=== PATIENT | male | born 1945 | race Caucasian/White ===

== ENCOUNTER → 2017-07-25 14:55 | Outpatient (CLI) | payer MEDICARE, SELFPAY ==
[2017-07-25 16:20] LABS: Absolute Lymphocyte Count 1.11 X10^3/ul (0.83-4.51); Absolute Neutrophil Count 4.1 X10^3/uL (2.0-7.7); Basophil# 0.02 X10^3/uL; Basophil% 0.3 % (0-1); Eosinophil# 0.08 X10^3/uL; Eosinophils% 1.3 % (0-5); Hematocrit 40.5 % (40-54); Lymphocyte # 1.11 X10^3/ul (4.0); Lymphocyte % 18.1 % (19-41); Mean Corp Hgb Conc 34.6 g/gl (32-36); Mean Corpuscular Hgb 32.4 pg (27.0-32.0); Mean Corpuscular Volume 93.8 fL (80-94); Mean Platelet Vol. 9.3 fl (6.2-12.0); Monocyte% 13.1 % (0-10); POSITIVE COUNT NO; POSITIVE DIFFERENTIAL NO; POSITIVE MORPHOLOGY NO; Platelet Count 238 K/mm3 (150-450); RBC Distribution Width CV 12.8 % (11.6-14.6); RBC Distribution Width SD 42.6 fl (35.1-43.9); Red Blood Count 4.32 M/mm3 (4.6-6.2); White Blood Count 6.1 K/mm3 (4.4-11.0)
[2017-07-25 16:53] LABS: ALB/GLOB Ratio 1.2 RATIO (0.9-2.4); AST(SGOT) 27 U/L (15-37); Alanine Aminotransfer ALT/SGPT 14 U/L (16-61); Albumin, Serum 3.7 g/dL (3.2-5.0); Alkaline Phosphatase 119 U/L (45-117); Anion Gap 9 (5-15); BUN 13 mg/dL (7-18); Calcium,Total 8.8 mg/dL (8.5-10.1); Chloride 102 mmol/L (98-107); Creatinine, Serum 0.81 mg/dL (0.70-1.30); EST Glomerular Filtration Rate 99 mL/min (>60); Est Glom Filt Rate - Afr Amer 120 mL/min (>60); Glucose 86 mg/dL (74-106); Protein, Total 6.7 g/dL (6.4-8.2); Sodium Level 138 mmol/L (136-145); Thyroid Stim Hormone (TSH) 0.88 uIU/mL (0.358-3.74)
[2017-07-26 09:44] LABS: Vitamin B12 478 pg/mL (211-911)
== END ==
PROVIDERS: Family Provider Family Medicine; PCP Family Medicine; Visit Provider Family Medicine
DX: R41.3 Other amnesia (principal)
CPT/HCPCS: 36415; 80053; 80162; 82607; 82746; 84443; 85025

== ENCOUNTER 2017-10-02 10:30 | Outpatient (RCR) | payer MEDICARE, SELFPAY ==
--- NOTE | 2017-08-27 13:04 | HP.PTEVAL_ITS ---
Patient's Visit Information BRUCE LUND is a 71 year old M referred to Physical Therapy by LLOYD BeanC with a diagnosis of BILATERAL LEG WEAKNESS ,PARKINSON DISEASE,. Date of Evaluation: 08/27/17 Physical Therapist: Ted Yuan PT, - Visit Plan Frequency: 1x/Week Duration: 4 Weeks Plan: FLEXABLITY,PRE'S QUADS/HAMS/HIP,GAIT,ENDURANCE ,NUSTEP - Subjective Subjective: This 71 y/o male presenst to physical therapy with Bilateral leg weakness,parkinson disease,shuffling gait. Patient has had Parkinson for 8 years. Patient has noticed weakness in legs and stamina for ADL'S . No recent falls. Pain has difficulty with housework tasks due to weakness ,walking more than 1/4 . Patient has ocassionally parathesia legs. Patient fatigues with ADL' S due to poor stamina.Patient takes MEDS for parkinsons. VOCATION: retired. SOCIAL: - Objective POSTURE: mild foward posture,thoracic kyphosis. GAIT: normal shanti reiprocal pattern ,decrease step length,mild foward posture. NEURO: mild tremor right UE, REFLEXES 1/3 ACHILLES ,PATELLA. MMT: quads/hams/hip 4-/5 ,ankle 4/5. BALANCE: good-. FLEXABLITY: hams mod tight. STEPS: ascend/descend 12 step with rail - Balance Scores Functional Gait Assessment Score: 15 % Disability: 50.0000 - Goals Goal 1:: Independant with HEP Goal Time Frame: 4-6 Weeks Goal 2:: Patient to normalize gait pattern community distances uneven/even. Goal Time Frame: 4-6 Weeks Goal 3:: Patient to increase strength 4/5 quads/hams/hip to improve gait. Goal Time Frame: 4-6 Weeks Goal 4:: Patient be able to perfgorm ADL'S and housework tasks with min limiations Goal Time Frame: 4-6 Weeks - Rehabilitation Potential Physical Therapy Diagnosis: This patient has parkinsons for the past 8 years affecting stamina,strength ,gait and ADL'S and house work tasks thus benifit from skilled PT Rehabilitation Potential: Good - Anticipated Interventions Patient/Client Instruction: Educate patient on: Condition, Plan of Care For the Purpose of:: To decrease pain, To improve muscle performance and motor function, To increase tolerance to activity/condition/position, To improve performance and independence with ADL's, To improve ability of physical actions for home/community/work/leisure, To decrease soft tissue restriction, To increase flexibility/ROM, To improve health and function, To improve ability to perform tasks related to life management Therapeutic Exercise to Include: Strength training, Endurance training, Postural training, Flexibilty training For the Purpose of:: To decrease pain, To increase ROM, To improve muscle performance and motor function, To improve ability to perform ADL's, To increase tolerance to activity/condition/position, To improve performance and independence with ADL's, To improve ability of physical actions for home/ community/work/leisure, To improve gait and locomotor functions, To increase flexibility/ROM, To improve endurance, To improve balance, To improve safety with gait, To improve ability to perform tasks related to life management Functional Training to Include: Gait training For the Purpose of:: To improve muscle performance and motor function, To improve ability to perform ADL's, To increase tolerance to activity/condition/ position, To improve ability of physical actions for home/community/work/leisure , To improve gait and locomotor functions, To improve endurance Thank you for the opportunity to evaluate your patient. For Medicare and Medicare HMO plans, please review the plan of care and approve it. It will need to be FAXED BACK to us at [phone] for Medicare purposes. Please let me know if there are questions or concerns regarding this plan of care. Physician Signature: Date:
--- NOTE | 2017-10-02 10:56 | HP.PTDCSUM_ITS ---
HP - PT D/C Summary It has been my pleasure to treat BRUCE LUND under orders from LLOYD BeanC, for the diagnosis of BILATERAL LEG WEAKNESS ,PARKINSON DISEASE, for a total of 5 visit(s). Discharge Date: 10/02/17 Please see the following information for a summary of their discharge status. - Subjective Subjective: Doing well ready for d/c.Doing well with ex's at home. Patient is more active at home. - Overall Improvement % Improvement: 70 - Objective Objective/Function: POSTURE : mild foward posture. GAIT: mormal shanti. NEURO : intact. MMT: 4/5 grossly. BALANCE: GOOD. FLEXABLITY: hams min tight - Goals Goal 1:: Independant with HEP Goal Progress: Goal Met Goal 2:: Patient to normalize gait pattern community distances uneven/even. Goal Progress: Goal Met Goal 3:: Patient to increase strength 4/5 quads/hams/hip to improve gait. Goal Progress: Goal Met Goal 4:: Patient be able to perfgorm ADL'S and housework tasks with min limiations Goal Progress: Goal Met - Plan Plan: D/C TO HEP - D/C Information Discharge Comments: HEP If there are questions or concerns regarding this patient's physical therapy, please feel free to call me at [phone]. Thank you for the referral of this patient. Sincerely, Ted Yuan, PT,
== END 2017-10-02 19:00 | disposition home or self-care (01) ==
LOC: PT 10:30
PROVIDERS: Family Provider Family Medicine; PCP Family Medicine; Visit Provider Nurse Practitioner Acute Care
DX: R29.898 Other symptoms and signs involving the musculoskeletal system (principal); G20 Parkinson's disease; R26.81 Unsteadiness on feet
CPT/HCPCS: 97110; 97162

== ENCOUNTER → 2018-06-27 13:42 | Outpatient (CLI) | payer MEDICARE, SELFPAY ==
[2018-06-02 16:00] VITALS: BMI 21.4
--- NOTE | 2018-06-27 13:47 | ECHOD_ITS ---
Reason For Study: MURMUR Procedure This was a 2D Doppler, Color Flow transthoracic echocardiogram. The exam was of adequate technical quality. Exam performed in department. Left Ventricle Mildly dilated left ventricle. Moderate segmental systolic dysfunction (see wall motion). The estimated ejection fraction is 35 %. Unable to assess diastolic dysfunction. Lateral-Basal: Hypokinetic. Posterior-Basal: Akinetic. Infero-Basal: Hypokinetic. Basal inferoseptal: Hypokinetic. Mid-Lateral : Hypokinetic. Mid-Posterior: Akinetic. Mid-Inferior: Hypokinetic. Mid-inferoseptal : Hypokinetic. Mid-anteroseptal : Hypokinetic. [place] : Akinetic. Right Ventricle Normal RV size. ICD or pacer leads identified within the right ventricle. Normal systolic function. Atria The left atrium is mildly enlarged. Normal right atrium. ICD or pacer leads identified within the right atrium. No doppler evidence for ASD. Mitral Valve There is no mitral annular calcification. Mitral valve doming/Hockey Sticking. Mild diffuse mitral valve thickening. Mild (1+) eccentric mitral valve insufficiency. Tricuspid Valve Normal tricuspid valve. Moderate (2+) tricuspid valve insufficiency. Right ventricular systolic pressure estimated to be 38 mmHg. Aortic Valve Trisinus/trileaflet aortic valve. Mild focal aortic valve thickening. Moderate focal aortic valve calcification. Mild aortic stenosis. Mild (1+) aortic valve insufficiency. Pulmonic Valve The pulmonic valve is not well visualized. Moderate (2+) pulmonic valve insufficiency. Great Vessels Normal sized aortic root. Pericardium/Pleural No pericardial effusion. MMode/2D Measurements & Calculations LVIDd: 6.0 cm IVSd: 0.99 cm LVOT diam: 2.1 cm LVIDs: 5.0 cm LVPWd: 1.1 cm LVOT area: 3.5 cm2 RVDd: 4.3 cm FS: 16.0 % Ao root diam: 3.6 cm LAV(MOD-bp): 72.2 ml LA A4 area: 22.5 cm2 LAV(MOD-bp) Indexed: 41.4 ml/m2 LAV(MOD-sp2): 73.9 ml LAV(MOD-sp4): 69.7 ml LA dimension(2D): 4.6 cm RA A4 area: 18.6 cm2 Doppler Measurements & Calculations Lat Peak E' Mamadou: 3.5 cm/sec Med Peak E' Mamadou: 3.9 cm/sec MV V2 max: 117.2 cm/sec MV max P.5 mmHg MV V2 mean: 62.5 cm/sec MV mean P.8 mmHg MV V2 VTI: 46.2 cm MVA(VTI): 1.6 cm2 Ao V2 max: 201.3 cm/sec AI max mamadou: 454.8 cm/sec LV V1 max: 95.3 cm/sec Ao max P.3 mmHg AI max P.7 mmHg LV V1 max P.6 mmHg Ao V2 mean: 146.2 cm/sec AI dec slope: 192.5 cm/sec2 LV V1 mean P.8 mmHg Ao mean P.6 mmHg AI P1/2t: 691.8 msec LV V1 mean: 61.5 cm/sec Ao V2 VTI: 38.6 cm LV V1 VTI: 20.3 cm CAITY(I,D): 1.9 cm2 CAITY(V,D): 1.7 cm2 SV(LVOT): 71.7 ml PA V2 max: 81.0 cm/sec PI end-d mamadou: 114.4 cm/sec TR max mamadou: 295.5 cm/sec MV P1/2t-pr_phl: 224.8 msec TR max P.0 mmHg Interpretation Summary Mildly dilated left ventricle. Moderate segmental systolic dysfunction (see wall motion). The estimated ejection fraction is 35 %. The left atrium is mildly enlarged. Mitral valve doming/Hockey Sticking Mild diffuse mitral valve thickening. Mild (1+) eccentric mitral valve insufficiency. Moderate (2+) tricuspid valve insufficiency. Mild aortic stenosis. Mild (1+) aortic valve insufficiency. Moderate (2+) pulmonic valve insufficiency. Right ventricular systolic pressure estimated to be 38 mmHg. Unable to assess diastolic dysfunction. ICD or pacer leads identified within the right atrium ICD or pacer leads identified within the right ventricle. Ordering Physician: Aaron Perez Referring Physician: VIRI BAJWA Performed By: Sameera Vitale, SOLO, RVT
== END ==
PROVIDERS: Family Provider Family Medicine; PCP Family Medicine; Referring Provider Internal Medicine Cardiovascular Disease; Visit Provider Internal Medicine Cardiovascular Disease
DX: I25.10 Atherosclerotic heart disease of native coronary artery without angina pectoris (principal)
CPT/HCPCS: 93306

== ENCOUNTER → 2018-07-10 10:55 | Outpatient (CLI) | payer MEDICARE, SELFPAY ==
[2018-07-10 09:58] VITALS: BMI 20.3
[2018-07-10 11:53] LABS: AST(SGOT) 18 U/L (15-37); Alanine Aminotransfer ALT/SGPT 12 U/L (16-61); Albumin, Serum 3.6 g/dL (3.2-5.0); Alkaline Phosphatase 125 U/L (45-117); Bilirubin, Direct 0.25 mg/dL (0.00-0.30); Cholesterol 125 mg/dL (200); Globulin 3.4 g/dL (2.2-4.2); High Density Lipoprotein 49 mg/dL; Triglycerides 81 mg/dL; Very Low Density Lipoprotein 16 mg/dL (5-40)
== END ==
PROVIDERS: Family Provider Family Medicine; PCP Family Medicine; Referring Provider Nurse Practitioner Family; Visit Provider Nurse Practitioner Family
DX: E78.2 Mixed hyperlipidemia (principal); I25.10 Atherosclerotic heart disease of native coronary artery without angina pectoris
CPT/HCPCS: 36415; 80061; 80076

== ENCOUNTER → 2018-07-31 06:48 | Outpatient (CLI) | payer MEDICARE, SELFPAY ==
[2018-06-02 16:00] VITALS: BMI 21.4
[2018-07-10 09:58] VITALS: BMI 20.3
--- NOTE | 2018-07-31 18:37 | STRESSREP ---
Stress Test Report Date: 07-31-18 Procedure: Pharmacologic stress nuclear imaging study Indications: CAD; CABG; ischemic cardiomyopathy; ICD Consent: Per the patient Procedure: The patient underwent pharmacologic (Regadenoson) evaluation with a peak heart rate of 111 beats per minute (76% predicted maximal heart rate) and a peak blood pressure of 140/70 mmHg. The baseline ECG demonstrated an electronic ventricular paced rhythm. The peak pharmacologic ECG demonstrated an electronic ventricular paced rhythm. There was an occasional PVC in recovery. There was no complaint of chest discomfort during pharmacologic infusion or recovery. The examination was discontinued secondary to completion of protocol. Impression: 1. Pharmacologic (Regadenoson) evaluation 2. Peak pharmacologic ECG with an electronic ventricular paced rhythm. 3. Her was an occasional PVC in recovery. 4. Nuclear images pending Myocardial perfusion imaging study: Technique: The patient was injected with 11.4 millicuries of technetium 99m Cardiolite and subsequently rest SPECT Cardiolite nuclear imaging was obtained in the horizontal long, vertical long, and short axis views. The patient underwent pharmacologic (Regadenoson) evaluation with a peak heart rate of 111 beats per minute (76 % percent predicted maximal heart rate) and a peak blood pressure of 140/70 mmHg. The patient was injected with 32.1 millicuries of technetium 99m Cardiolite and subsequently stress SPECT Cardiolite nuclear imaging was obtained in the horizontal long, vertical long, and short axis views. A gated Cardiolite study at peak stress was obtained. Interpretation: Rest and stress SPECT Cardiolite nuclear imaging status post realignment, normalization, and attenuation correction demonstrate areas of extracardiac/gastrointestinal tracer uptake near the inferior segments. There is notation of areas of diminished absence of tracer uptake in portions of the basal inferior segments without significant change. There is notation of diminished tracer uptake in portions of the mid to distal inferior and inferior apical segments at rest which appear to improve following stress. There is diminished end-systolic thickening and brightening. The gated Cardiolite study demonstrates myocardial thickening and inward wall motion. The reported LVEF is 41 %. Impression: 1. Rest and stress SPECT Cardiolite nuclear imaging demonstrate myocardial perfusion changes appearing compatible with an area of previous myocardial injury/infarction involving portions of the basal inferior segments as well as appearing compatible with elements of shifting soft tissue attenuation/artifact being more prominent at rest as opposed to stress with no post stress myocardial perfusion changes considered diagnostic for associated stress-induced myocardial ischemia. 2. The gated Cardiolite study reports an LVEF of 41 %. This note was generated with Rabbit TVation software. It may contain incorrect words, spelling, and punctuation that were not noted in checking the note before signing.
== END ==
PROVIDERS: Family Provider Family Medicine; PCP Family Medicine; Referring Provider Internal Medicine Cardiovascular Disease; Visit Provider Internal Medicine Cardiovascular Disease
DX: I25.10 Atherosclerotic heart disease of native coronary artery without angina pectoris (principal); R93.1 Abnormal findings on diagnostic imaging of heart and coronary circulation; Z95.5 Presence of coronary angioplasty implant and graft
CPT/HCPCS: 78452; 93017; A9500; A4216; J2785

== ENCOUNTER 2018-12-08 07:58 | Emergency (ER) | payer MEDICARE, SELFPAY ==
[2018-11-24 15:19] VITALS: BMI 20.3
[2018-12-08 07:59] VITALS: BP 151/86; PULSE 59; RESP 16; TEMP 36.1; O2SAT 92; BMI 20.7
--- NOTE | 2018-12-08 08:15 | EKG12_ITS ---
Test Reason : DYSRHYTHMIA Blood Pressure : / mmHG Vent. Rate : 057 BPM Atrial Rate : 057 BPM P-R Int : 124 ms QRS Dur : 174 ms QT Int : 478 ms P-R-T Axes : 086 259 087 degrees QTc Int : 465 ms Atrial-sensed ventricular-paced rhythm Biventricular pacemaker detected Abnormal ECG Confirmed by SIMRAN DOUGLAS ([id number]), editor city SWAPNA PORTILLO ([id number]) on 12/10/2018 3:25:54 PM Referred By: KEYLA Confirmed By:SIMRAN DOUGLAS
[2018-12-08 08:38] LABS: Absolute Lymphocyte Count 1.39 X10^3/uL (0.83-4.51); Absolute Neutrophil Count 3.9 X10^3/uL (2.0-7.7); Basophil# 0.03 X10^3/uL; Basophil% 0.5 % (0-1); Eosinophil# 0.11 X10^3/uL; Eosinophils% 1.8 % (0-5); Hematocrit 46.6 % (40-54); Lymphocyte # 1.39 X10^3/ul (4.0); Lymphocyte % 22.7 % (19-41); Mean Corp Hgb Conc 34.3 g/dL (32-36); Mean Corpuscular Hgb 32.5 pg (27.0-32.0); Mean Corpuscular Volume 94.7 fL (80-94); Mean Platelet Vol. 8.6 fl (6.2-12.0); Monocyte# 0.65 X10^3/uL; Monocyte% 10.6 % (0-10); NRBC Flagged by Analyzer 0 % (0-5); Neutrophil # 3.93 X10^3/uL (2.7-7.7); Neutrophil % 64.1 % (47-70); Platelet Count 202 K/mm3 (150-450); RBC Distribution Width CV 13.4 % (11.6-14.6); Red Blood Count 4.92 M/mm3 (4.6-6.2); White Blood Count 6.1 K/mm3 (4.4-11.0)
[2018-12-08] MEDS: 0.9% Normal Saline 1,000 ML 150 ML IV (08:54)
[2018-12-08 08:56] LABS: ALB/GLOB Ratio 1.1 RATIO (0.9-2.4); AST(SGOT) 17 U/L (15-37); Alanine Aminotransfer ALT/SGPT 13 U/L (16-61); Albumin, Serum 3.8 g/dL (3.2-5.0); Alkaline Phosphatase 114 U/L (45-117); Anion Gap 4 (5-15); BUN 15 mg/dL (7-18); Calcium,Total 9.1 mg/dL (8.5-10.1); Chloride 105 mmol/L (98-107); Creatinine, Serum 0.94 mg/dL (0.70-1.30); EST Glomerular Filtration Rate 83 mL/min (>60); Est Glom Filt Rate - Afr Amer 101 mL/min (>60); Estimated Creatinine Clearance 63.17 ml/min; Globulin 3.4 g/dL (2.2-4.2); Glucose 96 mg/dL (74-106); Potassium 4.3 mmol/L (3.5-5.1); Protein, Total 7.2 g/dL (6.4-8.2); Sodium Level 138 mmol/L (136-145)
[2018-12-08 09:20] LABS: Digoxin Level 0.47 ng/mL (0.80-2.00)
[2018-12-08 09:26] LABS: Mucous, Urine 0 SEEN /hpf (<or=2+); Squamous Epithelial Cells - UA 0 SEEN /hpf (0-5); White Blood Cells 0 SEEN /hpf (0-5)
[2018-12-08 09:33] LABS: Color, Urine Yellow (Yellow); Glucose, Dipstick Normal (Normal); Ketone-Dipstick Negative (Negative); Leukocyte Esterase-Dipstick Negative /ul (Negative); Nitrite-Dipstick Negative (Negative); Occult Blood-Urine Negative /ul (Negative); Protein-Dipstick Negative (Negative); Urine Bilirubin Dipstick Negative (Negative); Urine Clarity Clear (Clear); Urine Urobilinogen 1 mg/dl (Normal)
[2018-12-08 09:40] LABS: Bacteria RARE /hpf (None Seen); Red Blood Cells-Urine 0-5 SEEN /hpf (0-5)
--- NOTE | 2018-12-08 09:41 | ED.DCSUM_ITS ---
- ER Visit Summary Date of Service: 12/08/18 Chief Complaint: [Increased confusion] History of Present Illness: The patient is a 73 M [presents to the emergency department with several week history of increased confusion although his states that this is been an ongoing issue for several months. Patient at times will wake up in the middle the night combative. Patient states that he feels like he is been hallucinating although he denies any auditory hallucinations cannot really explain to me awaiting means by hallucinating. Patient this morning felt nauseated and just did not feel well so they came to be evaluated. Patient states that he has his citalopram dose adjusted and increased a couple weeks ago but that the symptoms started well before that. Patient has had some fleeting thoughts of self-harm but has no plan and does not think he would actually harm himself in any way. Patient does feel somewhat depressed. Patient has history of coronary artery disease, CHF, hypertension, high cholesterol, ischemic cardiomyopathy, and Parkinson's. Patient is not sure if he is overmedicated and his medications have been causing his symptoms.] Physical Examination: [HEENT-PERRLA, EOMI. Cranial nerves II through XII grossly intact. TMs clear. Mucous membranes moist. No adenopathy. Cardiovascular-regular rate and rhythm without murmur or ectopy Lungs-clear to auscultation, chest wall stable without crepitus or subcu emphysema Abdomen-normoactive bowel sounds, soft, nontender, no rebound or rigidity, no peritoneal signs. Neuro hcqb-[id number]-nj-nose and heel palomino testing within normal limits, negative Romberg, negative pronator, fundi benign. Patient does have a fine tremor noted associated with his Parkinson's. Extremities-intact ?4, normal range of motion, normal pulses, atraumatic] Test Results: [EKG obtained on arrival showed a paced rhythm with a ventricular rate of 57 bpm with no acute segment changes. CBC with differential was normal. Chemistries unremarkable. LFTs were normal. Urinalysis normal. Digoxin was 0.47.] Emergency Department Course and Treatment: [At this point patient will be seen by social psychologist and attempt to have patient have some outpatient follow-up potentially with mental health. Patient also would like a referral to neurology for follow-up as he would like a second opinion on his medications that his new neurologist has been adjusting.] Treatment Plan: [Follow-up with neurology within next 3 to 5 days. Patient also to follow-up with mental health services.] Disposition: Discharged home in stable condition [] Impression: [Confusion-etiology uncertain ] This note was generated with Intelligent Apps (mytaxi) dictation software. It may contain incorrect words, spelling, and punctuation that were not noted in review of the chart prior to signing ED Disposition - Plan for ED Patient: Referrals: Juan Carlos Joel MD [Primary Care Provider] -
--- NOTE | 2018-12-08 10:11 | ED.DEP ---
ED Disposition - Plan for ED Patient: Instructions: Confusion Referrals: Juan Carlos Joel MD [Primary Care Provider] - 3-5 Days Iftikhar Briones MD [STAFF PHYSICIAN] - 3-5 Days
[2018-12-08 10:48] VITALS: BP 151/86; PULSE 61; RESP 20; O2SAT 97
--- NOTE | 2018-12-08 11:00 | CM.ED ---
Social Work Consult: Discharge Planning/Resources Informant: Dr. Bennett Chief Complaint: Patient stating to have an increase with feeling down, hallucinations and confusion at night. Patient stating to kick around at night and to not want to hurt spouse. Patient stating to have seen an increase in above behavior after Celexa was increased by patient neurologist. Marital/Relationship Status: Patient to Radha Schmitt. Living Situation: Lives with spouse in a 1-story home. DME: Patient reporting to function without any DME at this time. Supports/Resources: Patient identifying patient spouse as main support. Connected with [facility] in [place] and follows with Sohan Pizano Patient stating to have a granddaughter that lives local but does not stop in to see patient. No other family lives in the area. Mental Health Hx: Patient denies any mental health history. Patient currently taking Celexa to manage depression secondary to Parkinson Disease. Patient denies any history of inpatient psychiatric placement. Patient stating to have thoughts that things might be better if patient would pass. Patient denies any active suicidal thoughts or plans. Patient able to identify spouse as a positive support and have plans to get better as forward thinking. Interventions: Social Work assessment Appointment set up with [facility]. Saturday at 2:00pm with Jerica Parry List provided of Counseling Services provided. Assessment: Met with patient and patient spouse in room. This social work professor introduced self as well as social work role. Patient stating to be concerned about the increase in hallucinations and depression. This social work professor exploring patient knowledge of Parkinson Disease process. Patient presenting with an understanding of how Parkinson Disease can impact patient mental health. This social work professor inquiring if patient has ever considered counseling services to assist in patient coping and managing mental health with a diagnosis of Parkinson Disease. Patient stating to have never considered counseling as an option. Patient is not open to this social work professor setting up an appointment for patient but is open to this social work professor providing patient with a list of counseling services within the area. Patient stating maybe counseling would help. This socia worker also encouraging patient to set up an appointment with [facility] to have a follow up with the recent medication changes, patient is agreeable to this and is agreeable to this social work professor calling to set up appointment. Nursing staff and Dr. Bennett aware of social work assessment and plan. PLAN: Discharge to home with spouse. Sandy MARTINEZ, SEBASTIÁN
[2018-12-08 11:29] VITALS: BP 157/91; PULSE 61; RESP 18; O2SAT 96
== END 2018-12-08 11:31 | disposition home or self-care (01) ==
PROVIDERS: Emergency Provider Emergency Medicine; Family Provider Family Medicine; PCP Family Medicine
DX: R41.0 Disorientation, unspecified (principal); I50.9 Heart failure, unspecified; I11.0 Hypertensive heart disease with heart failure; G20 Parkinson's disease; I25.10 Atherosclerotic heart disease of native coronary artery without angina pectoris; I25.5 Ischemic cardiomyopathy
CPT/HCPCS: 80053; 80162; 81001; 84484; 85025; 93005; 96360; 96361; 99284; J7030; A4216

== ENCOUNTER 2019-01-27 10:00 | Outpatient (RCR) | payer MEDICARE, SELFPAY ==
--- NOTE | 2018-12-26 09:46 | HP.PTEVAL_ITS ---
Patient's Visit Information BRUCE LUND is a 73 year old M referred to Physical Therapy by ASHLEY Ye with a diagnosis of Parkinson's Disease. Date of Evaluation: 12/26/18 Physical Therapist: THANIA Luong - Visit Plan Frequency: 2x /Week Duration: 4 Weeks Plan: 2X/ week for 4 weeks for balance exercises, transitions in standing with different directions, LE strength ( especially R hip.... THR), DUAL TASKING exercises with HEP - Subjective Findings: Pt was diagnosed with PD about 10 years ago. He reports that he is having trouble writing, L knee bothers him ( creak and groans). He has fallen sometimes......He stepped off a step wrong, fell bw into the bathrub the other day and just lost his balance ( bruised shoulders). He feels that his walking is bad as he takes short steps. He reports that he has not been exercising. He has a few steps at home with a railing. He usually has to push self up out of a chair. He feels the Dr sent him hear today to get him motivated. Most of the day he sits and watches TV. He has tremors in B hands and legs but mostly the R side. They are in the process of changing some of his PD meds. SOmetimes he can feel when the meds are wearing off. Pt generally sleeps well. - Pain L knee pain Pain Intensity (Out of 10): 0 - Objective Gait: Walks with arm swing, shorter stride lengths, occ veering. FGA: 19. CATSIB: 104. Pt has some LOB with CHANGING DIRECTIONS. LE MMT: R hip and 3+/5 and L 4/5, B hip flex, knee flex and knee ext 4/5. Pt is able to raise his heals without LOB or UE support. Pt is able to raise his toes without UE support but does have some retro LOB. Tight gastroc complexes B. TU seconds - Balance Scores Functional Gait Assessment Score: 19 % Disability: 36.6700 CATSIB Score (Max score 120 seconds): 104 - Goals Goal 1:: I HEP Goal Time Frame: 4-6 Weeks Goal 2:: Decrease TUG score to less than 12 to prevent falls Goal Time Frame: 4-6 Weeks Goal 3:: Increase FGA by 5 points to decrease fall risk ( at time of eval: 24) Goal Time Frame: 4-6 Weeks Goal 4:: Be able to turn 180 degrees without LOB. Goal Time Frame: 4-6 Weeks - Rehabilitation Potential Rehabilitation Potential: Good - Anticipated Interventions Patient/Client Instruction: Educate patient on: Condition, Plan of Care For the Purpose of:: To improve muscle performance and motor function, To improve ability to perform ADL's, To increase tolerance to activity/condition/position, To improve performance and independence with ADL's, To improve ability of physical actions for home/community/work/leisure, To improve gait and locomotor functions, To improve endurance, To improve balance, To improve safety with gait Therapeutic Exercise to Include: Strength training, Endurance training, Balance training, Postural training, Gait and locomotor training For the Purpose of:: To improve muscle performance and motor function, To improve ability to perform ADL's, To increase tolerance to activity/condition/position, To improve performance and independence with ADL's, To decrease level of supervision to perform tasks, To improve ability of physical actions for home/community/work/leisure, To improve gait and locomotor functions, To increase flexibility/ROM, To improve endurance, To improve balance Functional Training to Include: Gait training For the Purpose of:: To improve gait and locomotor functions Thank you for the opportunity to evaluate your patient. For Medicare and Medicare HMO plans, please review the plan of care and approve it. It will need to be FAXED BACK to us at [phone] for Medicare purposes. For Medicare only, by signing this I certify the plan of care. Please let me know if there are questions or concerns regarding this plan of care. Physician Signature: Date:
--- NOTE | 2019-04-06 13:49 | HP.PTDCSUM ---
HP - PT D/C Summary It has been my pleasure to treat BRUCE LUND under orders from LLOYD YeC, for the diagnosis of Parkinson's Disease for a total of 8 visit(s). Discharge Date: 01/27/19 Please see the following information for a summary of their discharge status. - Subjective Subjective: Pt reports that he is tired but ok. He feels that PT has helped. He is going to keep exercises at home. - Pain L knee pain Pain Intensity (Out of 10): 5 - Overall Improvement % Improvement: 75 - Objective Objective/Function: TUG 10.43. FGA: 25. Pt is able to turn 180 degrees with slight LOB 1/5 attempts. - Goals Goal 1:: I HEP Goal Progress: Goal Met Goal 2:: Decrease TUG score to less than 12 to prevent falls Goal Progress: Goal Met Goal 3:: Increase FGA by 5 points to decrease fall risk ( at time of eval: 24) Goal Progress: Goal Met Goal 4:: Be able to turn 180 degrees without LOB. Goal Progress: Goal Met - Plan Plan: DC PT to HEP - D/C Information Discharge Comments: DC PT to HEP If there are questions or concerns regarding this patient's physical therapy, please feel free to call me at [phone]. Thank you for the referral of this patient. Sincerely, Merry Rivera, MPT
== END 2019-01-27 19:00 | disposition home or self-care (01) ==
LOC: PT 10:00
PROVIDERS: Family Provider Family Medicine; PCP Family Medicine; Referring Provider Nurse Practitioner Family; Visit Provider Nurse Practitioner Family
DX: G20 Parkinson's disease (principal)
CPT/HCPCS: 97110; 97161; 97530

== ENCOUNTER → 2019-06-29 07:58 | Outpatient (CLI) | payer MEDICARE, SELFPAY ==
[2019-06-12 10:56] VITALS: BMI 22.1
[2019-06-29 09:04] LABS: AST(SGOT) 18 U/L (15-37); Alanine Aminotransfer ALT/SGPT 33 U/L (16-61); Albumin, Serum 3.7 g/dL (3.2-5.0); Alkaline Phosphatase 163 U/L (45-117); Bilirubin, Direct 0.24 mg/dL (0.00-0.30); Cholesterol 142 mg/dL (200); Globulin 4.1 g/dL (2.2-4.2); High Density Lipoprotein 35 mg/dL; Protein, Total 7.8 g/dL (6.4-8.2); Triglycerides 137 mg/dL; Very Low Density Lipoprotein 27 mg/dL (5-40)
== END ==
PROVIDERS: PCP Family Medicine; Referring Provider Internal Medicine Cardiovascular Disease; Visit Provider Internal Medicine Cardiovascular Disease
DX: E78.00 Pure hypercholesterolemia, unspecified (principal)
CPT/HCPCS: 80061; 80076

== ENCOUNTER → 2019-12-24 07:47 | Outpatient (CLI) | payer MEDICARE, SELFPAY ==
[2019-06-12 10:56] VITALS: BMI 22.1
[2019-12-24 08:30] LABS: Absolute Lymphocyte Count 1.97 X10^3/uL (0.83-4.51); Basophil# 0.05 X10^3/uL; Basophil% 0.6 % (0-1); Eosinophil# 0.18 X10^3/uL; Hemoglobin 14.8 g/dL (13.0-16.5); Lymphocyte # 1.97 X10^3/ul (4.0); Lymphocyte % 21.7 % (19-41); Mean Corp Hgb Conc 32.9 g/dL (32-36); Mean Corpuscular Hgb 31.8 pg (27.0-32.0); Mean Corpuscular Volume 96.6 fL (80-94); Mean Platelet Vol. 9.1 fl (6.2-12.0); Monocyte# 0.87 X10^3/uL; Monocyte% 9.6 % (0-10); NRBC Flagged by Analyzer 0 % (0-5); Neutrophil # 5.96 X10^3/uL (2.7-7.7); Neutrophil % 65.5 % (47-70); Platelet Count 242 K/mm3 (150-450); RBC Distribution Width CV 12.6 % (11.6-14.6); RBC Distribution Width SD 45.5 fl (35.1-43.9); Red Blood Count 4.66 M/mm3 (4.6-6.2); White Blood Count 9.1 K/mm3 (4.4-11.0)
[2019-12-24 08:58] LABS: ALB/GLOB Ratio 1.1 RATIO (0.9-2.4); AST(SGOT) 19 U/L (15-37); Alanine Aminotransfer ALT/SGPT 32 U/L (16-61); Albumin, Serum 4.1 g/dL (3.2-5.0); Alkaline Phosphatase 149 U/L (45-117); Anion Gap 4 (5-15); BUN 20 mg/dL (7-18); BUN/Creat Ratio 19.4 RATIO (10-20); Calcium,Total 8.9 mg/dL (8.5-10.1); Chloride 106 mmol/L (98-107); Creatinine, Serum 1.03 mg/dL (0.70-1.30); EST Glomerular Filtration Rate 75 mL/min (>60); Est Glom Filt Rate - Afr Amer 90 mL/min (>60); Globulin 3.6 g/dL (2.2-4.2); Glucose 114 mg/dL (74-106); PSA,Total - Annual Screen 1.45 ng/mL (0.00-4.00); Potassium 4.3 mmol/L (3.5-5.1); Protein, Total 7.7 g/dL (6.4-8.2); Sodium Level 139 mmol/L (136-145)
[2019-12-24 08:59] LABS: AST(SGOT) 19 U/L (15-37); Alanine Aminotransfer ALT/SGPT 32 U/L (16-61); Alkaline Phosphatase 149 U/L (45-117); Bilirubin, Direct 0.22 mg/dL (0.00-0.30); Cholesterol 158 mg/dL (200); Globulin 3.7 g/dL (2.2-4.2); High Density Lipoprotein 33 mg/dL; Protein, Total 7.7 g/dL (6.4-8.2); Triglycerides 225 mg/dL; Very Low Density Lipoprotein 45 mg/dL (5-40)
== END ==
PROVIDERS: PCP Family Medicine; Referring Provider Internal Medicine Cardiovascular Disease; Visit Provider Internal Medicine Cardiovascular Disease
DX: R17 Unspecified jaundice (principal); E78.00 Pure hypercholesterolemia, unspecified; E78.2 Mixed hyperlipidemia; Z12.5 Encounter for screening for malignant neoplasm of prostate
CPT/HCPCS: 36415; 80053; 80061; 80076; 84153; 85025; G0103

== ENCOUNTER → 2020-01-06 14:38 | Outpatient (CLI) | payer MEDICARE, SELFPAY ==
[2020-01-06 14:23] VITALS: BMI 22.1
--- NOTE | 2020-01-06 14:41 | RAD_ITS ---
STUDY: X-RAY CHEST REASON FOR EXAM: Male, 74 years old. Shortness of breath. TECHNIQUE: Frontal and lateral views of the chest. COMPARISON: 04/16/2013 FINDINGS: The lungs remain hyperinflated. There is no new focal consolidation. Sternal cerclage wires and vascular clips are present from a prior sternotomy and coronary artery bypass graft procedure (CABG). There is a cardiac pacer device in place. Normal mediastinum and alexa. Normal visualized pulmonary arteries. Normal visualized aortic arch and descending thoracic aorta. There are diffuse degenerative changes of the visualized thoracic spine. Normal visualized ribs, clavicles, and shoulders. There is no demonstrated abnormality of the visualized soft tissue structures of the upper abdomen. RAD/Chest PA and Lateral IMPRESSION: Stable examination demonstrating no acute cardiopulmonary process. Electronically Signed: Delisa Avendano MD at 16:23 EDT Tel , Service support ,
== END ==
PROVIDERS: PCP Family Medicine; Referring Provider Physician Assistant Medical; Visit Provider Physician Assistant Medical
DX: R06.02 Shortness of breath (principal)
CPT/HCPCS: 71046

== ENCOUNTER → 2020-06-28 08:17 | Outpatient (CLI) | payer MEDICARE, SELFPAY ==
[2020-01-06 14:23] VITALS: BMI 22.1
[2020-06-28 09:52] LABS: AST(SGOT) 20 U/L (15-37); Alanine Aminotransfer ALT/SGPT 40 U/L (16-61); Albumin, Serum 3.8 g/dL (3.2-5.0); Alkaline Phosphatase 149 U/L (45-117); Bilirubin, Direct 0.16 mg/dL (0.00-0.30); Cholesterol 122 mg/dL (200); Globulin 3.6 g/dL (2.2-4.2); High Density Lipoprotein 37 mg/dL; Protein, Total 7.4 g/dL (6.4-8.2); Triglycerides 104 mg/dL; Very Low Density Lipoprotein 21 mg/dL (5-40)
== END ==
PROVIDERS: PCP Family Medicine; Referring Provider Internal Medicine Cardiovascular Disease; Visit Provider Internal Medicine Cardiovascular Disease
DX: E78.2 Mixed hyperlipidemia (principal)
CPT/HCPCS: 36415; 80061; 80076

== ENCOUNTER 2020-10-24 14:30 | Outpatient (RCR) | payer MEDICARE, SELFPAY ==
[2020-01-06 14:23] VITALS: BMI 22.1
--- NOTE | 2020-09-19 09:30 | HP.PTEVAL_ITS ---
Patient's Visit Information BRUCE LUND is a 74 year old M referred to Physical Therapy by [facility] with a diagnosis of PD. Date of Evaluation: 09/19/20 Physical Therapist: THANIA Luong - Visit Plan Frequency: 2x /Week Duration: 4 Weeks Plan: HEP: standing wall posture, Standing wall shoulder flexion with feet shoulder width apart. PLAN: 2 X/ week or 4 weeks for progressive gait, balance, postural exercises, stretching, dual tasking with HEP - Subjective Pt reports that he has had PD for 15 years. He has been on meds for about the same amount of time (10 years). Pt reports that he has not exercised in over a year and he is walking slower. He usually does walking a lot for his exercise around his house. He has noticed slower walking, increase in tremor, stumbling around once in awhile. He has not fallen. Stairs: he can do stairs with a hand rail and alternating. He reports that he struggle up and down an hill. Sit to stand: that is difficult. He struggles with rolling over in bed. - Objective Gait: walks with rounded shoulders and slouched posture/trunk, bent knees, shortened step length but even B with descent arm swing and head flexed. sit to stand: can do it using his legs to go from sitting to standing. FGA: . LE MMT: B hip flex 4-/5, B knee ext and knee flex 4+/5, B hip abd 4-/5, hip ext 3+/5. Able to walk on heels and toes but does have retro LOB walking on his heels. Trunk AROM: flexion 50%, ext to neutral, SB B 25%, Rot B 50%. Posture: Rounded shoulders, FW head, increased thoracic kyphosis. Stepping alternating feet fw and then back to base... X 10 B ( Pt did well with this). Stepping fw and back with alternating arms and legs... he was able to do 2 on each leg and then started with same arm and same leg. TU sec - Balance Scores Functional Gait Assessment Score: 22 % Disability: 26.6700 - Goals Goal 1:: I HEP Goal Time Frame: 4-6 Weeks Goal 2:: Be able to walk with more upright posture with normal step length Goal Time Frame: 4-6 Weeks Goal 3:: Increase B hip abd strength by 1/2 muscle grade to 4/5 Goal Time Frame: 4-6 Weeks Goal 4:: be able to complete opp arm and hand motions and other dual tasking activities with ease Goal Time Frame: 4-6 Weeks - Rehabilitation Potential Rehabilitation Potential: Good - Anticipated Interventions Patient/Client Instruction: Educate patient on: Condition, Plan of Care For the Purpose of:: To improve muscle performance and motor function, To improve ability to perform ADL's, To increase tolerance to activity/condition/position, To improve performance and independence with ADL's, To decrease level of supervision to perform tasks, To improve ability of physical actions for home/community/work/leisure, To improve gait and locomotor functions, To improve health of tissue, To increase flexibility/ROM, To improve endurance, To improve balance, To improve safety with gait Therapeutic Exercise to Include: Strength training, Endurance training, Balance training, Agility training, Postural training, Flexibilty training, Gait and locomotor training, Neuromotor development, Passive ROM, Active ROM, Scapular Strength/Stabilization For the Purpose of:: To improve muscle performance and motor function, To improve ability to perform ADL's, To increase tolerance to activity/condition/position, To improve performance and independence with ADL's, To improve ability of physical actions for home/community/work/leisure, To improve gait and locomotor functions, To improve health of tissue, To decrease soft tissue restriction, To increase flexibility/ROM, To improve endurance, To improve balance, To improve safety with gait Functional Training to Include: Gait training For the Purpose of:: To improve ability of physical actions for home/community/work/leisure, To improve safety with gait Manual Therapy Techniques to Include: Passive ROM, Soft tissue mobilization For the Purpose of:: To improve health of tissue, To decrease soft tissue restriction, To increase flexibility/ROM Thank you for the opportunity to evaluate your patient. For Medicare and Medicare HMO plans, please review the plan of care and approve it. It will need to be FAXED BACK to us at [phone] for Medicare purposes. For Medicare only, by signing this I certify the plan of care. Please let me know if there are questions or concerns regarding this plan of care. Physician Signature: Date:
--- NOTE | 2020-10-24 14:57 | HP.PTDCSUM_ITS ---
It has been my pleasure to treat BRUCE LUND referred by [facility], with the diagnosis of PD for a total of 9 visit(s). Discharge Date: 10/24/20 Please see the following information for a summary of their discharge status. Subjective: Pt reports that he messed up his appt time. He also reports that he fell out of bed this morning. He reports that he feels he can do HEP after today. Pt feels that he is getting around some better. His stiffness is still present but not as much. Going up and down stairs he can do better especially with a railing. His memory is about the same. LBP Pain Intensity (Out of 10): Unrated % Improvement: 25 Objective/Function: Pt is able to go up and down stairs recip with one hand rail. LE MMT: B hip flce, knee flex/ext and hip abd 4/5. Pt struggles with opp arm and leg in sitting and standing but does better when is warmed up Goal 1:: I HEP Goal Progress: Goal Met Goal 2:: Be able to walk with more upright posture with normal step length Goal Progress: Progressing Goal 3:: Increase B hip abd strength by 1/2 muscle grade to 4/5 Goal Progress: Goal Met Goal 4:: be able to complete opp arm and hand motions and other dual tasking activities with ease Goal Progress: Progressing Plan: DC PT to HEP and return to [facility] at [facility] Discharge Comments: DC PT to HEP If there are questions or concerns regarding this patient's physical therapy, please feel free to call me at [phone]. Thank you for the referral of this patient. Sincerely, Merry Rivera, MPT
== END 2020-10-24 19:00 | disposition home or self-care (01) ==
LOC: PT 14:30
PROVIDERS: PCP Family Medicine
DX: G20 Parkinson's disease (principal)
CPT/HCPCS: 97110; 97161

== ENCOUNTER → 2020-12-13 09:52 | Outpatient (CLI) | payer MEDICARE, SELFPAY ==
[2020-10-31 15:25] VITALS: BMI 22.1
[2020-12-13 11:34] LABS: AST(SGOT) 15 U/L (15-37); Alanine Aminotransfer ALT/SGPT 27 U/L (16-61); Albumin, Serum 3.9 g/dL (3.2-5.0); Alkaline Phosphatase 148 U/L (45-117); Bilirubin, Direct 0.16 mg/dL (0.00-0.30); Cholesterol 118 mg/dL (200); Globulin 3.5 g/dL (2.2-4.2); High Density Lipoprotein 32 mg/dL; Protein, Total 7.4 g/dL (6.4-8.2); Triglycerides 126 mg/dL; Very Low Density Lipoprotein 25 mg/dL (5-40)
== END ==
PROVIDERS: PCP Family Medicine; Referring Provider Internal Medicine Cardiovascular Disease; Visit Provider Internal Medicine Cardiovascular Disease
DX: E78.00 Pure hypercholesterolemia, unspecified (principal)
CPT/HCPCS: 36415; 80061; 80076

== ENCOUNTER 2021-06-14 11:27 | Outpatient (CLI) | payer MEDICARE, SELFPAY ==
[2021-06-14 12:53] LABS: AST(SGOT) 14 U/L (15-37); Alanine Aminotransfer ALT/SGPT 12 U/L (16-61); Albumin, Serum 3.8 g/dL (3.2-5.0); Alkaline Phosphatase 145 U/L (45-117); Bilirubin, Direct 0.22 mg/dL (0.00-0.30); Cholesterol 131 mg/dL (200); Globulin 3.8 g/dL (2.2-4.2); High Density Lipoprotein 37 mg/dL; Protein, Total 7.6 g/dL (6.4-8.2); Triglycerides 123 mg/dL; Very Low Density Lipoprotein 25 mg/dL (5-40)
== END 2021-06-14 23:59 | disposition home or self-care (01) ==
LOC: LAB 11:28
PROVIDERS: PCP Family Medicine; Visit Provider Internal Medicine Cardiovascular Disease
DX: E78.00 Pure hypercholesterolemia, unspecified (principal)
CPT/HCPCS: 36415; 80061; 80076

== ENCOUNTER → 2021-12-25 | Outpatient (CLI) | payer MEDICARE, SELFPAY ==
[2021-12-25 14:33] LABS: AST(SGOT) 19 U/L (15-37); Alanine Aminotransfer ALT/SGPT 12 U/L (16-61); Albumin, Serum 3.7 g/dL (3.2-5.0); Alkaline Phosphatase 142 U/L (45-117); Cholesterol 150 mg/dL (200); Globulin 4.1 g/dL (2.2-4.2); High Density Lipoprotein 42 mg/dL; Protein, Total 7.8 g/dL (6.4-8.2); Triglycerides 116 mg/dL; Very Low Density Lipoprotein 23 mg/dL (5-40)
== END | disposition home or self-care (01) ==
LOC: LAB 13:11
PROVIDERS: PCP Family Medicine; Referring Provider Internal Medicine Cardiovascular Disease; Visit Provider Internal Medicine Cardiovascular Disease
DX: E78.2 Mixed hyperlipidemia (principal)
CPT/HCPCS: 36415; 80061; 80076

== ENCOUNTER → 2022-06-25 | Outpatient (CLI) | payer MEDICARE, SELFPAY ==
[2022-06-25 11:07] LABS: AST(SGOT) 38 U/L (15-37); Alanine Aminotransfer ALT/SGPT 22 U/L (16-61); Alkaline Phosphatase 117 U/L (45-117); Bilirubin, Direct 0.23 mg/dL (0.00-0.30); Cholesterol 135 mg/dL (200); Globulin 3.5 g/dL (2.2-4.2); High Density Lipoprotein 43 mg/dL; Protein, Total 7.5 g/dL (6.4-8.2); Triglycerides 77 mg/dL; Very Low Density Lipoprotein 15 mg/dL (5-40)
== END | disposition home or self-care (01) ==
LOC: LAB 09:16
PROVIDERS: PCP Family Medicine; Referring Provider Internal Medicine Cardiovascular Disease; Visit Provider Internal Medicine Cardiovascular Disease
DX: E78.00 Pure hypercholesterolemia, unspecified (principal)
CPT/HCPCS: 36415; 80061; 80076

== ENCOUNTER → 2022-12-19 | Outpatient (CLI) | payer MEDICARE, SELFPAY ==
[2022-12-19 13:10] LABS: AST(SGOT) 23 U/L (15-37); Alanine Aminotransfer ALT/SGPT 45 U/L (16-61); Albumin, Serum 3.7 g/dL (3.2-5.0); Alkaline Phosphatase 123 U/L (45-117); Bilirubin, Direct 0.28 mg/dL (0.00-0.30); Cholesterol 128 mg/dL (200); Globulin 3.4 g/dL (2.2-4.2); High Density Lipoprotein 50 mg/dL; Protein, Total 7.1 g/dL (6.4-8.2); Triglycerides 82 mg/dL; Very Low Density Lipoprotein 16 mg/dL (5-40)
== END | disposition home or self-care (01) ==
LOC: LAB 12:17
PROVIDERS: Internal Medicine Cardiovascular Disease; PCP Family Medicine; Referring Provider Nurse Practitioner Family; Visit Provider Nurse Practitioner Family
DX: E78.00 Pure hypercholesterolemia, unspecified (principal)
CPT/HCPCS: 36415; 80061; 80076

== ENCOUNTER → 2023-06-11 | Outpatient (CLI) | payer MEDICARE, SELFPAY ==
--- OUTSIDE RECORDS SUMMARY | 2023-06-11 10:23 | XMS RPT_ITS | CCD ---
Author Name Unknown Address [address] [place] [address] Organization [facility] Care Team Providers Care Brickmason Supervisor Name Role Phone RAMIRO Santiago, Jena Garcia Unavailable Unavailable Cassandra RUBIO, Karen Garsia Unavailable RACHEL Jorgensen, Karen Garcia Unavailable [phone] Vero RUBIO, Shweta Leavitt Unavailable Unavailable Valarie Duffy Unavailable Unavailable Valarie Duffy Unavailable Unavailable RAMIRO Santiago, Jena Garcia Unavailable Unavailable Ana PEREZ, Aaron Flanagan Unavailable [facility] Nurse Unavailable Unavailable RACHEL Jorgensen, Karen Garcia Unavailable Luli Hays Primary Care Provider Unavailselina Hays, Luli Magallon Primary Care Provider UnavailLuli Javier Primary Care Provider Unavailselina Hays, Luli Magallon Primary Care Provider Unavailabl [facility]LYT[facility] SPECIALIST.Cherry GONZALEZ Unavailable [phone] [facility]NALYT[facility] SPECIALIST.Rina GONZALEZ Unavailable [phone] WILLIE MATTHEWS Attending Unavailable LULI HAYS Primary Care Unavailable LULI HAYS Primary Care Unavailable WILLIE MATTHEWS Attending Unavailable CHERRY BERNAL Attending Unavailable LULI HAYS Primary Care Unavailable Medications Current Medications Medication Drug Class(es) Dates Sig (Normalized) Sig (Original) carbidopa 25 mg / levodopa 100 mg oral tablet (20 sources) Aromatic Amino Acid Decarboxylation Inhibitor, Aromatic Amino Acid Start: 09-20-2021 End: 09-20-2022 take 2 tablets by mouth four times daily carbidopa-levodo pa (SINEMET 25-100) 25-100 mg per tablet Take 2 tablets by mouth four times daily. 720 tablet 3 09/20/2021 09/20/2022 Active Completed/Discontinued Medications Medication Drug Class(es) Dates Sig (Normalized) Sig (Original) amLODIPine 5 mg oral tablet (4 sources) Dihydropyridine Calcium Channel Ganga Start: 08-30-2021 take 1 tablet by mouth once daily amLODIPine (NORVASC) 5 mg tablet Take 1 tablet by mouth once daily. 0 08/30/2021 Active Problems Active Problems Problem Classification Problem Date Documented Date Episodic/Chronic Cardiac dysrhythmias (20 sources) Supraventricular tachycardia; Translations: [Paroxysmal supraventricular tachycardia] Onset: 06-07-2014 06-07-2014 Chronic Conduction disorders (13 sources) Left bundle branch block; Translations: [Left bundle-branch block, unspecified] Onset: 11-02-2010 11-02-2010 Chronic Congestive heart failure; nonhypertensive (13 sources) Chronic systolic heart failure; Translations: [Chronic systolic (congestive) heart failure] Onset: 11-02-2010 11-02-2010 Chronic Coronary atherosclerosis and other heart disease (20 sources) Atherosclerotic heart disease of [place] coronary artery without angina pectoris; Translations: [Angina pectoris] Onset: 11-02-2010 06-27-2016 Chronic Disorders of lipid metabolism (13 sources) Hyperlipidemia; Translations: [Hyperlipidemia, unspecified] Onset: 11-02-2010 11-02-2010 Chronic Essential hypertension (13 sources) Hypertensive disorder; Translations: [Essential (primary) hypertension] Onset: 11-02-2010 11-02-2010 Chronic Heart valve disorders (13 sources) Mitral valve disorder; Translations: [Other nonrheumatic mitral valve disorders] Onset: 11-02-2010 11-02-2010 Chronic Other nervous system disorders (1 source) Abnormal gait; Translations: [Unsteadiness on feet] Episodic Parkinson`s disease (6 sources) Parkinson's disease; Translations: [Parkinson's disease] Onset: 09-23-2021 Chronic Residual codes; unclassified (1 source) REM sleep behavior disorder; 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 Unclassified (6 sources) Implantation of automatic cardiac defibrillator ; Translations: [Presence of automatic (implantable) cardiac defibrillator] Onset: 11-02-2010 11-02-2010 Unclassified (8 sources) Long-term drug therapy; Translations: [Other director long term care (current) drug therapy] Onset: 11-02-2010 11-02-2010 Past or Other Problems Problem Classification Problem Date Documented Date Episodic/Chronic Abdominal hernia (8 sources) Recurrent inguinal hernia; Translations: [Unilateral inguinal hernia, without obstruction or gangrene, recurrent] Onset: 5 03-05-2005 Episodic Complications of surgical procedures or medical care (13 sources) Postoperative infection; Translations: [Infection following a procedure] Onset: 1 11-02-2010 Episodic Coronary atherosclerosis and other heart disease (20 sources) Coronary angioplasty status; 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] Onset: 1 11-02-2010 Episodic Heart valve disorders (13 sources) Heart murmur; Translations: [Cardiac murmur, unspecified] Onset: 1 11-02-2010 Episodic Malaise and fatigue (15 sources) Fatigue; Translations: [Other fatigue] Onset: 5 10-19-2014 Episodic Nonspecific chest pain (13 sources) Chest discomfort; Translations: [Other chest pain] Onset: 1 11-02-2010 Episodic Other aftercare (5 sources) Other intermediate (current) drug therapy; Translations: [Other director long term care (current) drug therapy] Onset: 1 11-02-2010 Episodic Other nutritional; endocrine; and metabolic disorders (20 sources) Body mass index (BMI) 25.0-25.9, adult; Translations: [Body mass index (BMI) 25.0-25.9, adult] Onset: 3 Resolved: 4 04-10-2013 Episodic Other screening for suspected conditions (not mental disorders or infectious disease) (18 sources) Abnormal result of cardiovascular function study, unspecified; Translations: [Electrocardiogram abnormal] Onset: 1 11-02-2010 Episodic Other screening for suspected conditions (not mental disorders or infectious disease) (8 sources) Electrocardiogram abnormal; Translations: [Abnormal electrocardiogram [ECG] [EKG]] Onset: 1 11-02-2010 Episodic Residual codes; unclassified (20 sources) FH: Hypertension; Translations: [Family history of ischemic heart disease and other diseases of the circulatory system] Onset: 5 Resolved: 5 10-19-2014 Episodic Residual codes; unclassified (14 sources) Family history of ischemic heart disease and other diseases of the circulatory system; Translations: [Family history of ischemic heart disease and other diseases of the circulatory system] 10-12-2013 Episodic Residual codes; unclassified (7 sources) Family history of stroke; Translations: [Family history of stroke] 10-19-2014 Episodic Residual codes; unclassified (7 sources) Body mass index (BMI) 23.0-23.9, adult; Translations: [Body mass index (BMI) 23.0-23.9, adult] Onset: 7 07-04-2016 Episodic Residual codes; unclassified (7 sources) FH: Raised blood lipids; Translations: [Family history of other endocrine, nutritional and metabolic diseases] 10-19-2014 Episodic Residual codes; unclassified (14 sources) Body Mass Index between 19-24, adult; Translations: [Body Mass Index between 19-24, adult] Onset: 5 Resolved: 5 10-19-2014 Episodic Urinary tract infections (13 sources) Urinary tract infection, site not specified; Translations: [Urinary tract infection, site not specified] Onset: 3 04-17-2013 Episodic Results Test Name Value Interpretation Reference Range Facil ity Vital Signs Date Time Vital Sign Value Performing Clinician Reinai lity 01-16-2022 14:52-0400 Body height 175.3 cm Cherry Bernal APRN.CNP Work Phone: [facility] 01-16-2022 14:52-0400 Body weight 67.41 kg Cherry Bernal APRN.CNP Work Phone: [facility] 01-16-2022 14:52-0400 SaO2% (BldA) [Mass fraction] 97 % Cherry Bernal APRN.CNP Work Phone: [facility] 09-20-2021 10:03-0400 Body height 175.3 cm Willie Matthews MD Work Phone: [facility] 09-20-2021 10:03-0400 Body weight 71.22 kg Willie Matthews MD Work Phone: [facility] 09-20-2021 10:03-0400 Diastolic blood pressure 70 mm[Hg] Willie Matthews MD Work Phone: [facility] 09-20-2021 10:03-0400 Heart rate 55 /min Willie Matthews MD Work Phone: [facility] 09-20-2021 10:03-0400 SaO2% (BldA) [Mass fraction] 98 % Willie Matthews MD Work Phone: [facility] 09-20-2021 10:03-0400 Systolic blood pressure 141 mm[Hg] Willie Matthews MD Work Phone: [facility] 02-12-2017 11:51-0400 BMI (Body Mass Index) 22.89 kg/m2 [facility] Work Phone: 02-12-2017 11:51-0400 BP Diastolic 60 mm[Hg] Valarie Duffy [facility] Work Phone: 02-12-2017 11:51-0400 BP Systolic 98 mm[Hg] Valarie Duffy [facility] Work Phone: 02-12-2017 11:51-0400 Weight 70.31 kg Valarie Duffy [facility] Work Phone: 01-02-2017 13:22-0400 BMI (Body Mass Index) 22.93 kg/m2 [facility] Work Phone: 01-02-2017 13:22-0400 BP Diastolic 58 mm[Hg] [facility] Work Phone: 01-02-2017 13:22-0400 BP Systolic 98 mm[Hg] [facility] Work Phone: 01-02-2017 13:22-0400 Height 175.26 cm [facility] Work Phone: 01-02-2017 13:22-0400 Pulse (Heart Rate) 56 /min [facility] Work Phone: 01-02-2017 13:22-0400 Respiratory Rate 20 /min [facility] Work Phone: 01-02-2017 13:22-0400 Weight 70.45 kg [facility] Work Phone: 07-04-2016 14:17-0500 BMI (Body Mass Index) 23.92 kg/m2 [facility]O [facility] Work Phone: 07-04-2016 14:17-0500 BP Diastolic 60 mm[Hg] [facility] Work Phone: 07-04-2016 14:17-0500 BP Systolic 118 mm[Hg] [facility]IRO [facility] Work Phone: 07-04-2016 14:17-0500 Pulse (Heart Rate) 60 /min [facility]O [facility] Work Phone: 07-04-2016 14:17-0500 Respiratory Rate 16 /min [facility]O [facility] Work Phone: 07-04-2016 14:17-0500 Weight 73.48 kg RAMIRO [facility] Work Phone: 11-30-2015 09:39-0400 Heart rate 55 /min [facility]O [facility] Work Phone: 11-30-2015 09:29-0400 BSA (Body Surface Area) 1.9 m2 Jena Santiago RN [facility] Work Phone: 04-10-2013 14:36-0500 Heart rate 453 ms [facility]IRO [facility] Work Phone: 08-23-2011 10:46-0400 Height 175.26 cm RAMIRO [facility] Work Phone: Encounters Encounter Date Encounter Type Care Provider Facility Start: 09-19-2022 End: 09-19-2022 [facility] Facility:[facility] Start: 08-27-2022 Telephone encounter Willie sagastume MD Work Phone: [facility] Procedures Date Procedure Procedure Detail Performing Clinician Start: 02-12-2017 End: 02-12-2017 Follow Up Appt Other Karen Jorgensen PA-C Work Phone: Start: 01-23-2017 End: 02-01-2017 Follow Up Appt 3 months Aaron Perez MD Start: 01-23-2017 End: 02-01-2017 Pacer Clinic Aaron Perez MD Start: 01-23-2017 End: 01-23-2017 Prgrmg eval implantable in person multi lead dfb Aaron Perez MD Start: 01-23-2017 End: 01-23-2017 Icd device progr eval, mult Aaron tolentino MD Start: 01-02-2017 End: 01-02-2017 *CBC with Differential Karen Jorgensen PA-C Work Phone: Start: 01-02-2017 End: 01-02-2017 Follow Up Appt 6 weeks Karen Jorgensen PA-C Work Phone: Start: 01-02-2017 End: 01-02-2017 MMM Karen Jorgensen PA-C Work Phone: Start: 01-02-2017 End: 01-09-2017 Nuclear stress test -[facility] Karen Jorgensen PA-C Work Phone: Start: 01-02-2017 End: 01-02-2017 Thyrotropin [Units/volume] in Serum or Plasma Karen Jorgensen PA-C Work Phone: Start: 01-02-2017 End: 01-02-2017 Thyroxine (T4) [Mass/volume] in Serum or Plasma Karen Jorgensen PA-C Work Phone: Start: 01-02-2017 End: 01-02-2017 *CBC with Differential Karen Jorgensen PA-C Work Phone: Start: 01-02-2017 End: 01-02-2017 Follow Up Appt 6 weeks Karen Jorgensen PA-C Work Phone: Start: 01-02-2017 End: 01-02-2017 MMM Karen Jorgensen PA-C Work Phone: Start: 01-02-2017 End: 01-09-2017 Nuclear stress test -[facility] Karen Jorgensen PA-C Work Phone: Start: 01-02-2017 End: 01-02-2017 Thyroid stimulating hormone (TSH) Karen Jorgensen PA-C Work Phone: Start: 01-02-2017 End: 01-02-2017 Thyroxine (T4) Karen Jorgensen PA-C Work Phone: Start: 11-15-2016 End: 11-16-2016 *BMP Aaron Perez MD Start: 11-15-2016 End: 11-16-2016 *BMP Aaron Perez MD Start: 10-17-2016 End: 12-25-2016 Follow Up Appt 3 months Aaron Perez MD Start: 10-17-2016 End: 12-25-2016 Pacer Clinic Aaron Perez MD Start: 10-17-2016 End: 10-17-2016 Prgrmg eval implantable in person multi lead dfb Aaron Perez MD Start: 10-17-2016 End: 12-25-2016 Follow Up Appt 3 months Aaron Perez MD Start: 10-17-2016 End: 10-17-2016 Icd device progr eval, mult Aaron tolentino MD Start: 10-17-2016 End: 12-25-2016 Pacer Clinic Aaron Perez MD Start: 07-04-2016 End: 07-04-2016 Device Interrogation Aaron Perez MD Start: 07-04-2016 End: 12-25-2016 Follow Up Appt 3 months Aaron Perez MD Start: 07-04-2016 End: 07-04-2016 Follow Up Appt 6 months Aaron Perez MD Start: 07-04-2016 End: 07-04-2016 MMM Aaron Perez MD Start: 07-04-2016 End: 12-25-2016 Pacer Clinic Aaron Perez MD Start: 07-04-2016 End: 07-04-2016 Prgrmg eval implantable in person multi lead dfb Aaron Perez MD Start: 07-04-2016 End: 07-04-2016 Device Interrogation Aaron Perez MD Start: 07-04-2016 End: 12-25-2016 Follow Up Appt 3 months Aaron Perez MD Start: 07-04-2016 End: 07-04-2016 Follow Up Appt 6 months Aaron Perez MD Start: 07-04-2016 End: 07-04-2016 Icd device progr eval, mult Aaron tolentino MD Start: 07-04-2016 End: 07-04-2016 MMM Aaron Perez MD Start: 07-04-2016 End: 12-25-2016 Pacer Clinic Aaron Perez MD Start: 03-19-2016 End: 07-04-2016 Follow Up Appt 3 months Aaron Perez MD Start: 03-19-2016 End: 07-04-2016 Pacer Clinic Aaron Perez MD Start: 03-19-2016 End: 03-19-2016 Prgrmg eval implantable in person multi lead dfb Aaron Perez MD Start: 03-19-2016 End: 07-04-2016 Follow Up Appt 3 months Aaron Perez MD Start: 03-19-2016 End: 03-19-2016 Icd device progr eval, mult Aaron tolentino MD Start: 03-19-2016 End: 07-04-2016 Pacer Clinic Aaron Perez MD Start: 12-12-2015 End: 12-25-2016 Follow Up Appt 3 months Aaron Perez MD Start: 12-12-2015 End: 12-25-2016 Pacer Clinic Aaron Perez MD Start: 12-12-2015 End: 12-13-2015 Prgrmg eval implantable in person multi lead dfb Aaron Perez MD Start: 12-12-2015 End: 12-25-2016 Follow Up Appt 3 months Aaron Perez MD Start: 12-12-2015 End: 12-13-2015 Icd device progr eval, mult Aaron tolentino MD Start: 12-12-2015 End: 12-25-2016 Pacer Clinic Aaron Perez MD Start: 11-30-2015 End: 11-30-2015 Ecg routine ecg w/least 12 lds w/i&r Karen Jorgensen PA-C Work Phone: Start: 11-30-2015 End: 11-30-2015 Follow Up Appt 6 months Karen Jorgensen PA-C Work Phone: Start: 11-30-2015 End: 11-30-2015 PFM Karen Jorgensen PA-C Work Phone: Start: 11-30-2015 End: 11-30-2015 Electrocardiogram, complete Karen Jorgensen PA-C Work Phone: Start: 11-30-2015 End: 11-30-2015 Follow Up Appt 6 months Karen Jorgensen PA-C Work Phone: Start: 11-30-2015 End: 11-30-2015 PFM Karen Jorgensen PA-C Work Phone: Start: 10-21-2015 End: 12-25-2016 *Hepatic Function Panel Aaron Perez MD Start: 10-21-2015 End: 12-25-2016 Lipid 1996 panel - Serum or Plasma Aaron Perez MD Start: 10-21-2015 End: 12-25-2016 *Hepatic Function Panel Aaron Perez MD Start: 10-21-2015 End: 12-25-2016 Lipid panel [AGGREGATE] Aaron Perez MD Start: 09-12-2015 End: 11-23-2015 Follow Up Appt 3 months Aaron Perez MD Start: 09-12-2015 End: 11-23-2015 Pacer Clinic Aaron Perez MD Start: 09-12-2015 End: 09-12-2015 Prgrmg eval implantable in person multi lead dfb Aaron Perez MD Start: 09-12-2015 End: 11-23-2015 Follow Up Appt 3 months Aaron Perez MD Start: 09-12-2015 End: 09-12-2015 Icd device progr eval, mult Aaron tolentino MD Start: 09-12-2015 End: 11-23-2015 Pacer Clinic Aaron Perez MD Start: 06-13-2015 End: 11-23-2015 Follow Up Appt 3 months Aaron Perez MD Start: 06-13-2015 End: 11-23-2015 Pacer Clinic Aaron Perez MD Start: 06-13-2015 End: 06-13-2015 Prgrmg eval implantable in person multi lead dfb Aaron Perez MD Start: 06-13-2015 End: 11-23-2015 Follow Up Appt 3 months Aaron Perez MD Start: 06-13-2015 End: 06-13-2015 Icd device progr eval, mult Aaron tolentino MD Start: 06-13-2015 End: 11-23-2015 Pacer Clinic Aaron Perez MD Start: 05-19-2015 End: 05-19-2015 Follow Up Appt 6 months Aaron Perez MD Start: 05-19-2015 End: 05-19-2015 MM Aaron Perez MD Start: 05-19-2015 End: 05-19-2015 Follow Up Appt 6 months Aaron Perez MD Start: 05-19-2015 End: 05-19-2015 MM Aaron Perez MD Start: 04-18-2015 End: 04-21-2015 *Hepatic Function Panel Aaron Perez MD Start: 04-18-2015 End: 04-21-2015 Lipid 1996 panel - Serum or Plasma Aaron Perez MD Start: 04-18-2015 End: 04-21-2015 *Hepatic Function Panel Aaron Perez MD Start: 04-18-2015 End: 04-21-2015 Lipid panel [AGGREGATE] Aaron Perez MD Start: 03-07-2015 End: 11-23-2015 Follow Up Appt 3 months Aaron Perez MD Start: 03-07-2015 End: 11-23-2015 Pacer Clinic Aaron Perez MD Start: 03-07-2015 End: 03-08-2015 Prgrmg eval implantable in person multi lead dfb Aaron Perez MD Start: 03-07-2015 End: 11-23-2015 Follow Up Appt 3 months Aaron Perez MD Start: 03-07-2015 End: 03-08-2015 Icd device progr eval, mult Aaron tolentino MD Start: 03-07-2015 End: 11-23-2015 Pacer Clinic Aaron Perez MD Start: 11-19-2014 End: 11-23-2015 Follow Up Appt 3 months Aaron Perez MD Start: 11-19-2014 End: 11-23-2015 Pacer Clinic Aaron Perez MD Start: 11-19-2014 End: 11-19-2014 Prgrmg eval implantable in person multi lead dfb Aaron Perez MD Start: 11-19-2014 End: 11-23-2015 Follow Up Appt 3 months Aaron Perez MD Start: 11-19-2014 End: 11-19-2014 Icd device progr eval, carleyt Aaron tolentino MD Start: 11-19-2014 End: 11-23-2015 Pacer Clinic Aaron Perez MD Start: 10-19-2014 End: 10-25-2014 CBC W Auto Differential panel - Blood Karen Jorgensen PA-C Work Phone: Start: 10-19-2014 End: 10-20-2014 Documentation of current medications Karen Jorgensen PA-C Work Phone: Start: 10-19-2014 End: 10-19-2014 Ecg routine ecg w/least 12 lds w/i&r Karen Jorgensen PA-C Work Phone: Start: 10-19-2014 End: 10-19-2014 Follow Up Appt 6 months Karen Jorgensen PA-C Work Phone: Start: 10-19-2014 End: 10-27-2014 Nuclear stress test -Philippe Jorgensen PA-C Work Phone: Start: 10-19-2014 End: 10-19-2014 PFM Karen Jorgensen PA-C Work Phone: Start: 10-19-2014 End: 10-25-2014 Thyrotropin [Units/volume] in Serum or Plasma Karen Jorgensen PA-C Work Phone: Start: 10-19-2014 End: 10-25-2014 Thyroxine (T4) [Mass/volume] in Serum or Plasma Karen Jorgensen PA-C Work Phone: Start: 10-19-2014 End: 10-25-2014 CBC W Auto Differential panel - Blood Karen Jorgensen PA-C Work Phone: Start: 10-19-2014 End: 10-20-2014 Documentation of current medications Karen Jorgensen PA-C Work Phone: Start: 10-19-2014 End: 10-19-2014 Electrocardiogram, complete Karen Jorgensen PA-C Work Phone: Start: 10-19-2014 End: 10-19-2014 Follow Up Appt 6 months Karen Jorgensen PA-C Work Phone: Start: 10-19-2014 End: 10-27-2014 Nuclear stress test -Philippe Jorgensen PA-C Work Phone: Start: 10-19-2014 End: 10-19-2014 PF Karen Jorgensen PA-C Work Phone: Start: 10-19-2014 End: 10-25-2014 Thyroid stimulating hormone (TSH) Karen Jorgensen PA-C Work Phone: Start: 10-19-2014 End: 10-25-2014 Thyroxine (T4) Karen Jorgensen PA-C Work Phone: Start: 08-16-2014 End: 10-05-2014 Follow Up Appt 3 months Ravi Conteh MD Work Phone: Start: 08-16-2014 End: 10-05-2014 Pacer Clinic Ravi Conteh MD Work Phone: Start: 08-16-2014 End: 08-16-2014 Prgrmg eval implantable in person multi lead dfb Ravi Conteh MD Work Phone: Start: 08-16-2014 End: 10-05-2014 Follow Up Appt 3 months Ravi Conteh MD Work Phone: Start: 08-16-2014 End: 08-16-2014 Icd device progr eval, mult Ravi fierro MD Work Phone: Start: 08-16-2014 End: 10-05-2014 Pacer Clinic Ravi Conteh MD Work Phone: Start: 05-17-2014 End: 10-05-2014 Follow Up Appt 3 months Aaron Perez MD Start: 05-17-2014 End: 10-05-2014 Pacer Clinic Aaron Perez MD Start: 05-17-2014 End: 05-17-2014 Prgrmg eval implantable in person multi lead dfb Aaron Perez MD Start: 05-17-2014 End: 10-05-2014 Follow Up Appt 3 months Aaron Perez MD Start: 05-17-2014 End: 05-17-2014 Icd device progr eval, mult Aaron tolentino MD Start: 05-17-2014 End: 10-05-2014 Pacer Clinic Aaron Perez MD Start: 04-19-2014 End: 10-15-2014 *Hepatic Function Panel Aaron Perez MD Start: 04-19-2014 End: 04-19-2014 Follow Up Appt 6 months Aaron Perez MD Start: 04-19-2014 End: 10-15-2014 Lipid 1996 panel - Serum or Plasma Aaron Perez MD Start: 04-19-2014 End: 04-19-2014 MMM Aaron Perez MD Start: 04-19-2014 End: 10-15-2014 *Hepatic Function Panel Aaron Perez MD Start: 04-19-2014 End: 04-19-2014 Follow Up Appt 6 months Aaron Perez MD Start: 04-19-2014 End: 10-15-2014 Lipid panel [AGGREGATE] Aaron Perez MD Start: 04-19-2014 End: 04-19-2014 MM Aaron Perez MD Start: 04-05-2014 End: 10-05-2014 *Hepatic Function Panel Aaron Perez MD Start: 04-05-2014 End: 10-05-2014 Lipid 1996 panel - Serum or Plasma Aaron Perez MD Start: 04-05-2014 End: 10-05-2014 *Hepatic Function Panel Aaron Perez MD Start: 04-05-2014 End: 10-05-2014 Lipid panel [AGGREGATE] Aaron Perez MD Start: 02-11-2014 End: 10-05-2014 Follow Up Appt 3 months Aaron Perez MD Start: 02-11-2014 End: 10-05-2014 Pacer Clinic Aaron Perez MD Start: 02-11-2014 End: 02-11-2014 Prgrmg eval implantable in person multi lead dfb Aaron Perez MD Start: 02-11-2014 End: 10-05-2014 Follow Up Appt 3 months Aaron Perez MD Start: 02-11-2014 End: 02-11-2014 Icd device progr eval, mult Aaron tolentino MD Start: 02-11-2014 End: 10-05-2014 Pacer Clinic Aaron Perez MD Start: 11-11-2013 End: 10-05-2014 Follow Up Appt 3 months Karen Jorgensen PA-C Work Phone: Start: 11-11-2013 End: 10-05-2014 Pacer Clinic Karen Jorgensen PA-C Work Phone: Start: 11-11-2013 End: 11-11-2013 Prgrmg eval implantable in person multi lead dfb Karen Jorgensen PA-C Work Phone: Start: 11-11-2013 End: 10-05-2014 Follow Up Appt 3 months Karen Jorgensen PA-C Work Phone: Start: 11-11-2013 End: 11-11-2013 Icd device progr eval, mult Karen Jorgensen PA-C Work Phone: Start: 11-11-2013 End: 10-05-2014 Pacer Clinic Karen Jorgensen PA-C Work Phone: Start: 10-12-2013 End: 10-12-2013 *Hepatic Function Panel Karen Jorgensen PA-C Work Phone: Start: 10-12-2013 End: 10-12-2013 Follow Up Appt 6 months Karen Jorgensen PA-C Work Phone: Start: 10-12-2013 End: 10-12-2013 Lipid 1996 panel - Serum or Plasma Karen Jorgensen PA-C Work Phone: Start: 10-12-2013 End: 10-12-2013 PFM Karen Jorgensen PA-C Work Phone: Start: 10-12-2013 End: 10-12-2013 *Hepatic Function Panel Karen Jorgensen PA-C Work Phone: Start: 10-12-2013 End: 10-12-2013 Follow Up Appt 6 months Karen Jorgensen PA-C Work Phone: Start: 10-12-2013 End: 10-12-2013 Lipid panel [AGGREGATE] Karen Jorgensen PA-C Work Phone: Start: 10-12-2013 End: 10-12-2013 PFM Karen Jorgensen PA-C Work Phone: Start: 10-04-2013 End: 10-13-2013 *Hepatic Function Panel Aaron Perez MD Start: 10-04-2013 End: 10-13-2013 Lipid 1996 panel - Serum or Plasma Aaron Perez MD Start: 10-04-2013 End: 10-13-2013 *Hepatic Function Panel Aaron Perez MD Start: 10-04-2013 End: 10-13-2013 Lipid panel [AGGREGATE] Aaron Perez MD Start: 08-05-2013 End: 10-01-2013 Follow Up Appt 2 months Aaron Perez MD Start: 08-05-2013 End: 10-01-2013 Pacer Clinic Aaron Perez MD Start: 08-05-2013 End: 08-05-2013 Prgrmg eval implantable in person multi lead dfb Aaron Perez MD Start: 08-05-2013 End: 10-01-2013 Follow Up Appt 2 months Aaron Perez MD Start: 08-05-2013 End: 08-05-2013 Icd device progr eval, mult Aaron toletnino MD Start: 08-05-2013 End: 10-01-2013 Pacer Clinic Aaron Perez MD Start: 05-04-2013 End: 10-01-2013 Follow Up Appt 3 months Jose Koroma Start: 05-04-2013 End: 05-04-2013 Nurse, Teaching, Wound Check (no charge) Daniel Kaplan MD Start: 05-04-2013 End: 10-01-2013 Pacer Clinic Daniel Kaplan MD Start: 05-04-2013 End: 10-01-2013 Follow Up Appt 3 months Jose Koroma Start: 05-04-2013 End: 05-04-2013 Nurse, Teaching, Wound Check (no charge) Daniel Kaplan MD Start: 05-04-2013 End: 10-01-2013 Pacer Clinic Daniel Kaplan MD Start: 04-21-2013 End: 10-05-2014 *UA - Urinalysis w/o Micro Aaron hendricks MD Start: 04-21-2013 End: 10-05-2014 *UA - Urinalysis w/o Micro Aaron hendricks MD Start: 04-10-2013 End: 10-05-2014 *BMP Aaron Perez MD Start: 04-10-2013 End: 10-05-2014 *Hepatic Function Panel Aaron Perez MD Start: 04-10-2013 End: 10-05-2014 *UA - Urinalysis w/o Micro Aaron hendricks MD Start: 04-10-2013 End: 10-05-2014 CBC W Auto Differential panel - Blood Aaron Perez MD Start: 04-10-2013 End: 10-05-2014 Chest x-ray Aaron Perez MD Start: 04-10-2013 End: 04-20-2013 Ecg routine ecg w/least 12 lds w/i&r Aaron Perez MD Start: 04-10-2013 End: 10-01-2013 Follow Up Appt 3 months Aaron Perez MD Start: 04-10-2013 End: 04-10-2013 Follow Up Appt 6 months Aaron Perez MD Start: 04-10-2013 End: 10-05-2014 INR in Platelet poor plasma by Coagulation assay Aaron Perez MD Start: 04-10-2013 End: 10-05-2014 Lipid 1996 panel - Serum or Plasma Aaron Perez MD Start: 04-10-2013 End: 04-10-2013 MMM Aaron Perez MD Start: 04-10-2013 End: 10-01-2013 Pacemaker Generator Change Aaron hendricks MD Start: 04-10-2013 End: 10-01-2013 Pacer Clinic Aaron Perez MD Start: 04-10-2013 End: 04-10-2013 Prgrmg eval implantable in prsn dual lead dfb Aaron Perez MD Start: 04-10-2013 End: 10-05-2014 *BMP Aaron Perez MD Start: 04-10-2013 End: 10-05-2014 *Hepatic Function Panel Aaron Perez MD Start: 04-10-2013 End: 10-05-2014 *UA - Urinalysis w/o Micro Aaron hendricks MD Start: 04-10-2013 End: 10-05-2014 CBC W Auto Differential panel - Blood Aaron Perez MD Start: 04-10-2013 End: 10-05-2014 Chest x-ray Aaron Perez MD Start: 04-10-2013 End: 10-05-2014 Coagulation factor induced.INR assay in platelet poor plasma Aaron Perez MD Start: 04-10-2013 End: 04-20-2013 Electrocardiogram, complete Aaron tolentino MD Start: 04-10-2013 End: 10-01-2013 Follow Up Appt 3 months Aaron Perez MD Start: 04-10-2013 End: 04-10-2013 Follow Up Appt 6 months Aaron Perez MD Start: 04-10-2013 End: 04-10-2013 Icd device progr eval, dual Aaron tolentino MD Start: 04-10-2013 End: 10-05-2014 Lipid panel [AGGREGATE] Aaron Perez MD Start: 04-10-2013 End: 04-10-2013 MMM Aaron Perez MD Start: 04-10-2013 End: 10-01-2013 Pacemaker Generator Change Aaron hendricks MD Start: 04-10-2013 End: 10-01-2013 Pacer Clinic Aaron Perez MD Start: 12-31-2012 End: 10-01-2013 Follow Up Appt 3 months Aaron Perez MD Start: 12-31-2012 End: 01-01-2013 Interrogation eval remote 30 d cv mntr sys Aaron Perez MD Start: 12-31-2012 End: 10-01-2013 Pacer Clinic Aaron Perez MD Start: 12-31-2012 End: 12-31-2012 Prgrmg eval implantable in person multi lead dfb Aaron Perez MD Start: 12-31-2012 End: 10-01-2013 Follow Up Appt 3 months Aaron Perez MD Start: 12-31-2012 End: 12-31-2012 Icd device progr eval, mult Aaron tolentino MD Start: 12-31-2012 End: 01-01-2013 Icm device interrogat remote Aaron Perez MD Start: 12-31-2012 End: 10-01-2013 Pacer Clinic Aaron Perez MD Start: 10-04-2012 End: 10-05-2014 *Hepatic Function Panel Aaron Perez MD Start: 10-04-2012 End: 10-05-2014 Lipid 1996 panel - Serum or Plasma Aaron Perez MD Start: 10-04-2012 End: 10-05-2014 *Hepatic Function Panel Aaron Perez MD Start: 10-04-2012 End: 10-05-2014 Lipid panel [AGGREGATE] Aaron Perez MD Start: 09-26-2012 End: 10-01-2013 Echocardiography Aaron Perez MD Start: 09-26-2012 End: 09-26-2012 Follow Up Appt 3 months Aaron Perez MD Start: 09-26-2012 End: 09-26-2012 Follow Up Appt 6 months Aaron Perez MD Start: 09-26-2012 End: 09-26-2012 Pacer Clinic Aaron Perez MD Start: 09-26-2012 End: 09-26-2012 PFM Aaron Perez MD Start: 09-26-2012 End: 09-26-2012 Prgrmg eval implantable in person multi lead dfb Aaron Perez MD Start: 09-26-2012 End: 10-01-2013 Echocardiography Aaron Perez MD Start: 09-26-2012 End: 09-26-2012 Follow Up Appt 3 months Aaron Perez MD Start: 09-26-2012 End: 09-26-2012 Follow Up Appt 6 months Aaron Perez MD Start: 09-26-2012 End: 09-26-2012 Icd device progr eval, mult Aaron tolentino MD Start: 09-26-2012 End: 09-26-2012 Pacer Clinic Aaron Perez MD Start: 09-26-2012 End: 09-26-2012 [facility] Aaron Perez MD Start: 04-05-2012 End: 04-10-2012 *Hepatic Function Panel Aaron Perez MD Start: 04-05-2012 End: 04-10-2012 Lipid 1996 panel - Serum or Plasma Aaron Perez MD Start: 04-05-2012 End: 04-10-2012 *Hepatic Function Panel Aaron Perez MD Start: 04-05-2012 End: 04-10-2012 Lipid panel [AGGREGATE] Aaron Perez MD Start: 02-25-2012 End: 10-01-2013 Follow Up Appt 6 months Aaron Perez MD Start: 02-25-2012 End: 10-01-2013 Nuclear stress test -adenosine Aaron Perez MD Start: 02-25-2012 End: 10-01-2013 Follow Up Appt 6 months Aaron Perez MD Start: 02-25-2012 End: 10-01-2013 Nuclear stress test -adenosine Aaron Perez MD Start: 10-05-2011 End: 11-08-2011 *Hepatic Function Panel Aaron Perez MD Start: 10-05-2011 End: 11-08-2011 Lipid 1996 panel - Serum or Plasma Aaron Perez MD Start: 10-05-2011 End: 11-08-2011 *Hepatic Function Panel Aaron Perez MD Start: 10-05-2011 End: 11-08-2011 Lipid panel [AGGREGATE] Aaron Perez MD Start: 08-23-2011 End: 10-01-2013 Echocardiography Aaron Perez MD Start: 08-23-2011 End: 10-01-2013 Follow Up Appt 6 months Aaron Perez MD Start: 08-23-2011 End: 10-01-2013 Echocardiography Aaron Perez MD Start: 08-23-2011 End: 10-01-2013 Follow Up Appt 6 months Aaron Perze MD Start: 11-02-2010 Implantation of automatic cardiac defibrillator IMPLANTATION OF DEFIBRILLATOR, HX OF Karen Jorgensen PA-C Start: 11-02-2010 Implantation of automatic cardiac defibrillator IMPLANTATION OF DEFIBRILLATOR, HX OF Jena Santiago RN Plan of Treatment Date Care Activity Detail Author Start: 01-04-2023 Influenza vaccination INFLUENZA (Season Ended) [facility] Start: 05-06-2022 ADVANCE DIRECTIVE DISCUSSION ADVANCE DIRECTIVE DISCUSSION [facility] Start: 05-06-2022 DEPRESSION ASSESSMENT DEPRESSION ASSESSMENT [facility] Start: 01-04-2022 Influenza vaccination [facility] Start: 07-07-2021 COVID-19 VACCINE (4 - Booster for Pfizer series) COVID-19 VACCINE (4 - Booster for Pfizer series) [facility] Start: 05-06-2021 ADVANCE DIRECTIVE DISCUSSION ADVANCE DIRECTIVE DISCUSSION [facility] Start: 05-04-2021 COVID-19 VACCINE (4 - Booster for Pfizer series) COVID-19 VACCINE (4 - Booster for Pfizer series) [facility] Start: 07-10-2017 End: 07-10-2017 Appointment Appointment [facility] Work Phone: Start: 07-03-2017 End: 07-03-2017 Appointment Appointment [facility] Work Phone: Start: 05-08-2017 End: 05-08-2017 Appointment Appointment [facility] Work Phone: Start: 02-12-2017 End: 02-12-2017 Appointment Appointment [facility] Work Phone: Start: 02-12-2017 End: 02-12-2017 Follow Up Appt Other Follow Up Appt Other [facility] Work Phone: Start: 01-23-2017 End: 01-23-2017 Appointment Appointment [facility] Work Phone: Start: 01-23-2017 End: 02-01-2017 Follow Up Appt 3 months Follow Up Appt 3 months [facility] Work Phone: Start: 01-23-2017 End: 02-01-[address] [facility] [address] [facility] Work Phone: Start: 01-23-2017 End: 01-23-2017 Follow Up Appt 3 months Follow Up Appt 3 months [facility] Work Phone: Start: 01-23-2017 End: 01-23-2017 [facility] Work Phone: Start: 01-02-2017 End: 01-02-2017 *CBC with Differential *CBC with Differential [facility] Work Phone: Start: 01-02-2017 End: 01-02-2017 Follow Up Appt 6 weeks Follow Up Appt 6 weeks [facility] Work Phone: Start: 01-02-2017 End: 01-02-2017 MMM MMM [facility] Work Phone: Start: 01-02-2017 End: 01-02-2017 Nuclear stress test -Lexiscan Nuclear stress test -Lexiscan [facility] Work Phone: Start: 01-02-2017 End: 01-02-2017 Thyroid stimulating hormone (TSH) *TSH [facility] Work Phone: Start: 01-02-2017 End: 01-02-2017 Thyroxine (T4) *T4 (Total) [facility] Work Phone: Start: 01-02-2017 End: 01-02-2017 Appointment Appointment [facility] Work Phone: Start: 01-02-2017 End: 01-02-2017 *CBC with Differential *CBC with Differential [facility] Work Phone: Start: 01-02-2017 End: 01-02-2017 Follow Up Appt 6 weeks Follow Up Appt 6 weeks [facility] Work Phone: Start: 01-02-2017 End: 01-02-2017 MMM MMM [facility] Work Phone: Start: 01-02-2017 End: 01-02-2017 Nuclear stress test -Lexiscan Nuclear stress test -Lexiscan [facility] Work Phone: Start: 01-02-2017 End: 01-02-2017 Thyroid stimulating hormone (TSH) *TSH [facility] Work Phone: Start: 01-02-2017 End: 01-02-2017 Thyroxine (T4) *T4 (Total) [facility] Work Phone: Start: 11-15-2016 End: 11-16-2016 *BMP *BMP [facility] Work Phone: Start: 11-15-2016 End: 11-16-2016 *BMP *BMP [facility] Work Phone: Start: 10-17-2016 End: 10-17-2016 Appointment Appointment [facility] Work Phone: Start: 10-17-2016 End: 12-25-2016 Follow Up Appt 3 months Follow Up Appt 3 months [facility] Work Phone: Start: 10-17-2016 End: 12-25-2016 Pacer Clinic Pacer Clinic [facility] Work Phone: Start: 10-17-2016 End: 12-25-2016 Follow Up Appt 3 months Follow Up Appt 3 months [facility] Work Phone: Start: 10-17-2016 End: 12-25-2016 Pacer Clinic Pacer Clinic [facility] Work Phone: Start: 07-04-2016 End: 07-04-2016 Device Interrogation Device Interrogation [facility] Work Phone: Start: 07-04-2016 End: 12-25-2016 Follow Up Appt 3 months Follow Up Appt 3 months [facility] Work Phone: Start: 07-04-2016 End: 07-04-2016 Follow Up Appt 6 months Follow Up Appt 6 months [facility] Work Phone: Start: 07-04-2016 End: 07-04-2016 MMM MMM [facility] Work Phone: Start: 07-04-2016 End: 12-25-2016 Pacer Clinic Pacer Clinic [facility] Work Phone: Start: 07-04-2016 End: 07-04-2016 Device Interrogation Device Interrogation [facility] Work Phone: Start: 07-04-2016 End: 12-25-2016 Follow Up Appt 3 months Follow Up Appt 3 months [facility] Work Phone: Start: 07-04-2016 End: 07-04-2016 Follow Up Appt 6 months Follow Up Appt 6 months [facility] Work Phone: Start: 07-04-2016 End: 07-04-2016 MMM MMM [facility] Work Phone: Start: 07-04-2016 End: 12-25-2016 Pacer Clinic Pacer Clinic [facility] Work Phone: Start: 03-19-2016 End: 07-04-2016 Follow Up Appt 3 months Follow Up Appt 3 months [facility] Work Phone: Start: 03-19-2016 End: 07-04-2016 Pacer Clinic Pacer Clinic [facility] Work Phone: Start: 03-19-2016 End: 07-04-2016 Follow Up Appt 3 months Follow Up Appt 3 months [facility] Work Phone: Start: 03-19-2016 End: 07-04-2016 Pacer Clinic Pacer Clinic [facility] Work Phone: Start: 12-12-2015 End: 12-25-2016 Follow Up Appt 3 months Follow Up Appt 3 months [facility] Work Phone: Start: 12-12-2015 End: 12-25-2016 Pacer Clinic Pacer Clinic [facility] Work Phone: Start: 12-12-2015 End: 12-25-2016 Follow Up Appt 3 months Follow Up Appt 3 months [facility] Work Phone: Start: 12-12-2015 End: 12-25-2016 Pacer Clinic Pacer Clinic [facility] Work Phone: Start: 11-30-2015 End: 11-30-2015 Ecg routine ecg w/least 12 lds w/i&r EKG (In office) [facility] Work Phone: Start: 11-30-2015 End: 11-30-2015 Follow Up Appt 6 months Follow Up Appt 6 months [facility] Work Phone: Start: 11-30-2015 End: 11-30-2015 PFM PFM [facility] Work Phone: Start: 11-30-2015 End: 11-30-2015 Electrocardiogram, complete EKG (In office) [facility] Work Phone: Start: 11-30-2015 End: 11-30-2015 Follow Up Appt 6 months Follow Up Appt 6 months [facility] Work Phone: Start: 11-30-2015 End: 11-30-2015 PFM PFM [facility] Work Phone: Start: 10-21-2015 End: 12-25-2016 *Hepatic Function Panel *Hepatic Function Panel [facility] Work Phone: Start: 10-21-2015 End: 12-25-2016 Lipid panel [AGGREGATE] *Lipid Profile CC PCP [facility] Work Phone: Start: 10-21-2015 End: 12-25-2016 *Hepatic Function Panel *Hepatic Function Panel [facility] Work Phone: Start: 10-21-2015 End: 12-25-2016 Lipid panel [AGGREGATE] *Lipid Profile CC PCP [facility] Work Phone: Start: 09-12-2015 End: 11-23-2015 Follow Up Appt 3 months Follow Up Appt 3 months [facility] Work Phone: Start: 09-12-2015 End: 11-23-2015 Pacer Clinic Pacer Clinic [facility] Work Phone: Start: 09-12-2015 End: 11-23-2015 Follow Up Appt 3 months Follow Up Appt 3 months [facility] Work Phone: Start: 09-12-2015 End: 11-23-2015 Pacer Clinic Pacer Clinic [facility] Work Phone: Start: 06-13-2015 End: 11-23-2015 Follow Up Appt 3 months Follow Up Appt 3 months [facility] Work Phone: Start: 06-13-2015 End: 11-23-2015 Pacer Clinic Pacer Clinic [facility] Work Phone: Start: 06-13-2015 End: 11-23-2015 Follow Up Appt 3 months Follow Up Appt 3 months [facility] Work Phone: Start: 06-13-2015 End: 11-23-2015 Pacer Clinic Pacer Clinic [facility] Work Phone: Start: 05-19-2015 End: 05-19-2015 Follow Up Appt 6 months Follow Up Appt 6 months [facility] Work Phone: Start: 05-19-2015 End: 05-19-2015 MMM MMM [facility] Work Phone: Start: 05-19-2015 End: 05-19-2015 Follow Up Appt 6 months Follow Up Appt 6 months [facility] Work Phone: Start: 05-19-2015 End: 05-19-2015 MMM MMM [facility] Work Phone: Start: 04-18-2015 End: 04-21-2015 *Hepatic Function Panel *Hepatic Function Panel [facility] Work Phone: Start: 04-18-2015 End: 04-21-2015 Lipid panel [AGGREGATE] *Lipid Profile CC PCP [facility] Work Phone: Start: 04-18-2015 End: 04-21-2015 *Hepatic Function Panel *Hepatic Function Panel [facility] Work Phone: Start: 04-18-2015 End: 04-21-2015 Lipid panel [AGGREGATE] *Lipid Profile CC PCP [facility] Work Phone: Start: 03-07-2015 End: 11-23-2015 Follow Up Appt 3 months Follow Up Appt 3 months [facility] Work Phone: Start: 03-07-2015 End: 11-23-2015 Pacer Clinic Pacer Clinic [facility] Work Phone: Start: 03-07-2015 End: 11-23-2015 Follow Up Appt 3 months Follow Up Appt 3 months [facility] Work Phone: Start: 03-07-2015 End: 11-23-2015 Pacer Clinic Pacer Clinic [facility] Work Phone: Start: 11-19-2014 End: 11-23-2015 Follow Up Appt 3 months Follow Up Appt 3 months [facility] Work Phone: Start: 11-19-2014 End: 11-23-2015 Pacer Clinic Pacer Clinic [facility] Work Phone: Start: 11-19-2014 End: 11-23-2015 Follow Up Appt 3 months Follow Up Appt 3 months [facility] Work Phone: Start: 11-19-2014 End: 11-23-2015 Pacer Clinic Pacer Clinic [facility] Work Phone: Start: 10-19-2014 End: 10-25-2014 CBC W Auto Differential panel - Blood *CBC without Diff [facility] Work Phone: Start: 10-19-2014 End: 10-19-2014 Ecg routine ecg w/least 12 lds w/i&r EKG (In office) [facility] Work Phone: Start: 10-19-2014 End: 10-19-2014 Follow Up Appt 6 months Follow Up Appt 6 months [facility] Work Phone: Start: 10-19-2014 End: 10-19-2014 Nuclear stress test -Lexiscan Nuclear stress test -Lexiscan [facility] Work Phone: Start: 10-19-2014 End: 10-19-2014 PFM PFM [facility] Work Phone: Start: 10-19-2014 End: 10-25-2014 Thyroid stimulating hormone (TSH) *TSH [facility] Work Phone: Start: 10-19-2014 End: 10-25-2014 Thyroxine (T4) *T4 (Total) [facility] Work Phone: Start: 10-19-2014 End: 10-25-2014 CBC W Auto Differential panel - Blood *CBC without Diff [facility] Work Phone: Start: 10-19-2014 End: 10-19-2014 Electrocardiogram, complete EKG (In office) [facility] Work Phone: Start: 10-19-2014 End: 10-19-2014 Follow Up Appt 6 months Follow Up Appt 6 months [facility] Work Phone: Start: 10-19-2014 End: 10-19-2014 Nuclear stress test -Lexiscan Nuclear stress test -Lexiscan [facility] Work Phone: Start: 10-19-2014 End: 10-19-2014 PFM PFM [facility] Work Phone: Start: 10-19-2014 End: 10-25-2014 Thyroid stimulating hormone (TSH) *TSH [facility] Work Phone: Start: 10-19-2014 End: 10-25-2014 Thyroxine (T4) *T4 (Total) [facility] Work Phone: Start: 08-16-2014 End: 10-05-2014 Follow Up Appt 3 months Follow Up Appt 3 months [facility] Work Phone: Start: 08-16-2014 End: 10-05-2014 Pacer Clinic Pacer Clinic [facility] Work Phone: Start: 08-16-2014 End: 10-05-2014 Follow Up Appt 3 months Follow Up Appt 3 months [facility] Work Phone: Start: 08-16-2014 End: 10-05-2014 Pacer Clinic Pacer Clinic [facility] Work Phone: Start: 05-17-2014 End: 10-05-2014 Follow Up Appt 3 months Follow Up Appt 3 months [facility] Work Phone: Start: 05-17-2014 End: 10-05-2014 Pacer Clinic Pacer Clinic [facility] Work Phone: Start: 05-17-2014 End: 10-05-2014 Follow Up Appt 3 months Follow Up Appt 3 months [facility] Work Phone: Start: 05-17-2014 End: 10-05-2014 Pacer Clinic Pacer Clinic [facility] Work Phone: Start: 04-19-2014 End: 10-15-2014 *Hepatic Function Panel *Hepatic Function Panel [facility] Work Phone: Start: 04-19-2014 End: 04-19-2014 Follow Up Appt 6 months Follow Up Appt 6 months [facility] Work Phone: Start: 04-19-2014 End: 10-15-2014 Lipid panel [AGGREGATE] *Lipid Profile CC PCP [facility] Work Phone: Start: 04-19-2014 End: 04-19-2014 MMM MMM [facility] Work Phone: Start: 04-19-2014 End: 10-15-2014 *Hepatic Function Panel *Hepatic Function Panel [facility] Work Phone: Start: 04-19-2014 End: 04-19-2014 Follow Up Appt 6 months Follow Up Appt 6 months [facility] Work Phone: Start: 04-19-2014 End: 10-15-2014 Lipid panel [AGGREGATE] *Lipid Profile CC PCP [facility] Work Phone: Start: 04-19-2014 End: 04-19-2014 MMM MMM [facility] Work Phone: Start: 04-05-2014 End: 10-05-2014 *Hepatic Function Panel *Hepatic Function Panel [facility] Work Phone: Start: 04-05-2014 End: 10-05-2014 Lipid panel [AGGREGATE] *Lipid Profile CC PCP [facility] Work Phone: Start: 04-05-2014 End: 10-05-2014 *Hepatic Function Panel *Hepatic Function Panel [facility] Work Phone: Start: 04-05-2014 End: 10-05-2014 Lipid panel [AGGREGATE] *Lipid Profile CC PCP [facility] Work Phone: Start: 02-11-2014 End: 10-05-2014 Follow Up Appt 3 months Follow Up Appt 3 months [facility] Work Phone: Start: 02-11-2014 End: 10-05-2014 Pacer Clinic Pacer Clinic [facility] Work Phone: Start: 02-11-2014 End: 10-05-2014 Follow Up Appt 3 months Follow Up Appt 3 months [facility] Work Phone: Start: 02-11-2014 End: 10-05-2014 Pacer Clinic Pacer Clinic [facility] Work Phone: Start: 11-11-2013 End: 10-05-2014 Follow Up Appt 3 months Follow Up Appt 3 months [facility] Work Phone: Start: 11-11-2013 End: 10-05-2014 Pacer Clinic Pacer Clinic [facility] Work Phone: Start: 11-11-2013 End: 10-05-2014 Follow Up Appt 3 months Follow Up Appt 3 months [facility] Work Phone: Start: 11-11-2013 End: 10-05-2014 Pacer Clinic Pacer Clinic [facility] Work Phone: Start: 10-12-2013 End: 10-12-2013 *Hepatic Function Panel *Hepatic Function Panel [facility] Work Phone: Start: 10-12-2013 End: 10-12-2013 Follow Up Appt 6 months Follow Up Appt 6 months [facility] Work Phone: Start: 10-12-2013 End: 10-12-2013 Lipid panel [AGGREGATE] *Lipid Profile CC PCP [facility] Work Phone: Start: 10-12-2013 End: 10-12-2013 PFM PFM [facility] Work Phone: Start: 10-12-2013 End: 10-12-2013 *Hepatic Function Panel *Hepatic Function Panel [facility] Work Phone: Start: 10-12-2013 End: 10-12-2013 Follow Up Appt 6 months Follow Up Appt 6 months [facility] Work Phone: Start: 10-12-2013 End: 10-12-2013 Lipid panel [AGGREGATE] *Lipid Profile CC PCP [facility] Work Phone: Start: 10-12-2013 End: 10-12-2013 PFM PFM [facility] Work Phone: Start: 10-04-2013 End: 10-13-2013 *Hepatic Function Panel *Hepatic Function Panel [facility] Work Phone: Start: 10-04-2013 End: 10-13-2013 Lipid panel [AGGREGATE] *Lipid Profile CC PCP [facility] Work Phone: Start: 10-04-2013 End: 10-13-2013 *Hepatic Function Panel *Hepatic Function Panel [facility] Work Phone: Start: 10-04-2013 End: 10-13-2013 Lipid panel [AGGREGATE] *Lipid Profile CC PCP [facility] Work Phone: Start: 08-05-2013 End: 10-01-2013 Follow Up Appt 2 months Follow Up Appt 2 months [facility] Work Phone: Start: 08-05-2013 End: 10-01-2013 Pacer Clinic Pacer Clinic [facility] Work Phone: Start: 08-05-2013 End: 10-01-2013 Follow Up Appt 2 months Follow Up Appt 2 months [facility] Work Phone: Start: 08-05-2013 End: 10-01-2013 Pacer Clinic Pacer Clinic [facility] Work Phone: Start: 05-04-2013 End: 10-01-2013 Follow Up Appt 3 months Follow Up Appt 3 months [facility] Work Phone: Start: 05-04-2013 End: 10-01-2013 Pacer Clinic Pacer Clinic [facility] Work Phone: Start: 05-04-2013 End: 10-01-2013 Follow Up Appt 3 months Follow Up Appt 3 months [facility] Work Phone: Start: 05-04-2013 End: 10-01-2013 Pacer Clinic Pacer Clinic [facility] Work Phone: Start: 04-21-2013 End: 10-05-2014 *UA - Urinalysis w/o Micro *UA - Urinalysis w/o Micro [facility] Work Phone: Start: 04-21-2013 End: 10-05-2014 *UA - Urinalysis w/o Micro *UA - Urinalysis w/o Micro [facility] Work Phone: Start: 04-10-2013 End: 10-05-2014 *BMP *BMP [facility] Work Phone: Start: 04-10-2013 End: 10-05-2014 *Hepatic Function Panel *Hepatic Function Panel [facility] Work Phone: Start: 04-10-2013 End: 10-05-2014 *UA - Urinalysis w/o Micro *UA - Urinalysis w/o Micro [facility] Work Phone: Start: 04-10-2013 End: 10-05-2014 CBC W Auto Differential panel - Blood *CBC without Diff [facility] Work Phone: Start: 04-10-2013 End: 10-05-2014 Chest x-ray X-Ray, Chest, PA & Lateral [facility] Work Phone: Start: 04-10-2013 End: 04-20-2013 Ecg routine ecg w/least 12 lds w/i&r EKG (In office) [facility] Work Phone: Start: 04-10-2013 End: 10-01-2013 Follow Up Appt 3 months Follow Up Appt 3 months [facility] Work Phone: Start: 04-10-2013 End: 04-10-2013 Follow Up Appt 6 months Follow Up Appt 6 months [facility] Work Phone: Start: 04-10-2013 End: 10-05-2014 INR Coag RelTime (PPP) *PT/INR [facility] Work Phone: Start: 04-10-2013 End: 10-05-2014 Lipid panel [AGGREGATE] *Lipid Profile CC PCP [facility] Work Phone: Start: 04-10-2013 End: 04-10-2013 MMM MMM [facility] Work Phone: Start: 04-10-2013 End: 04-10-2013 Pacemaker Generator Change Pacemaker Generator Change [facility] Work Phone: Start: 04-10-2013 End: 10-01-2013 Pacer Clinic Pacer Clinic [facility] Work Phone: Start: 04-10-2013 End: 10-05-2014 *BMP *BMP [facility] Work Phone: Start: 04-10-2013 End: 10-05-2014 *Hepatic Function Panel *Hepatic Function Panel [facility] Work Phone: Start: 04-10-2013 End: 10-05-2014 *UA - Urinalysis w/o Micro *UA - Urinalysis w/o Micro [facility] Work Phone: Start: 04-10-2013 End: 10-05-2014 CBC W Auto Differential panel - Blood *CBC without Diff [facility] Work Phone: Start: 04-10-2013 End: 10-05-2014 Chest x-ray X-Ray, Chest, PA & Lateral [facility] Work Phone: Start: 04-10-2013 End: 10-05-2014 Coagulation factor induced.INR assay in platelet poor plasma *PT/INR [facility] Work Phone: Start: 04-10-2013 End: 04-20-2013 Electrocardiogram, complete EKG (In office) [facility] Work Phone: Start: 04-10-2013 End: 10-01-2013 Follow Up Appt 3 months Follow Up Appt 3 months [facility] Work Phone: Start: 04-10-2013 End: 04-10-2013 Follow Up Appt 6 months Follow Up Appt 6 months [facility] Work Phone: Start: 04-10-2013 End: 10-05-2014 Lipid panel [AGGREGATE] *Lipid Profile CC PCP [facility] Work Phone: Start: 04-10-2013 End: 04-10-2013 MMM MMM [facility] Work Phone: Start: 04-10-2013 End: 04-10-2013 Pacemaker Generator Change Pacemaker Generator Change [facility] Work Phone: Start: 04-10-2013 End: 10-01-2013 Pacer Clinic Pacer Clinic [facility] Work Phone: Start: 12-31-2012 End: 10-01-2013 Follow Up Appt 3 months Follow Up Appt 3 months [facility] Work Phone: Start: 12-31-2012 End: 10-01-2013 Pacer Clinic Pacer Clinic [facility] Work Phone: Start: 12-31-2012 End: 10-01-2013 Follow Up Appt 3 months Follow Up Appt 3 months [facility] Work Phone: Start: 12-31-2012 End: 10-01-2013 Pacer Clinic Pacer Clinic [facility] Work Phone: Start: 10-04-2012 End: 10-05-2014 *Hepatic Function Panel *Hepatic Function Panel [facility] Work Phone: Start: 10-04-2012 End: 10-05-2014 Lipid panel [AGGREGATE] *Lipid Profile [facility] Work Phone: Start: 10-04-2012 End: 10-05-2014 *Hepatic Function Panel *Hepatic Function Panel [facility] Work Phone: Start: 10-04-2012 End: 10-05-2014 Lipid panel [AGGREGATE] *Lipid Profile [facility] Work Phone: Start: 09-26-2012 End: 09-26-2012 Echocardiography Echocardiogram (limited) [facility] Work Phone: Start: 09-26-2012 End: 09-26-2012 Follow Up Appt 3 months Follow Up Appt 3 months [facility] Work Phone: Start: 09-26-2012 End: 09-26-2012 Follow Up Appt 6 months Follow Up Appt 6 months [facility] Work Phone: Start: 09-26-2012 End: 09-26-2012 Pacer Clinic Pacer Clinic [facility] Work Phone: Start: 09-26-2012 End: 09-26-2012 PFM PFM [facility] Work Phone: Start: 09-26-2012 End: 09-26-2012 Echocardiography Echocardiogram (limited) [facility] Work Phone: Start: 09-26-2012 End: 09-26-2012 Follow Up Appt 3 months Follow Up Appt 3 months [facility] Work Phone: Start: 09-26-2012 End: 09-26-2012 Follow Up Appt 6 months Follow Up Appt 6 months [facility] Work Phone: Start: 09-26-2012 End: 09-26-2012 Pacer Clinic Pacer Clinic [facility] Work Phone: Start: 09-26-2012 End: 09-26-2012 PFM PFM [facility] Work Phone: Start: 04-05-2012 End: 11-08-2011 *Hepatic Function Panel *Hepatic Function Panel [facility] Work Phone: Start: 04-05-2012 End: 11-08-2011 Lipid panel [AGGREGATE] *Lipid Profile [facility] Work Phone: Start: 04-05-2012 End: 11-08-2011 *Hepatic Function Panel *Hepatic Function Panel [facility] Work Phone: Start: 04-05-2012 End: 11-08-2011 Lipid panel [AGGREGATE] *Lipid Profile [facility] Work Phone: Start: 02-25-2012 End: 10-01-2013 Follow Up Appt 6 months Follow Up Appt 6 months [facility] Work Phone: Start: 02-25-2012 End: 02-25-2012 Nuclear stress test -adenosine Nuclear stress test -adenosine [facility] Work Phone: Start: 02-25-2012 End: 10-01-2013 Follow Up Appt 6 months Follow Up Appt 6 months [facility] Work Phone: Start: 02-25-2012 End: 02-25-2012 Nuclear stress test -adenosine Nuclear stress test -adenosine [facility] Work Phone: Start: 10-05-2011 End: 11-08-2011 *Hepatic Function Panel *Hepatic Function Panel [facility] Work Phone: Start: 10-05-2011 End: 11-08-2011 Lipid panel [AGGREGATE] *Lipid Profile [facility] Work Phone: Start: 10-05-2011 End: 11-08-2011 *Hepatic Function Panel *Hepatic Function Panel [facility] Work Phone: Start: 10-05-2011 End: 11-08-2011 Lipid panel [AGGREGATE] *Lipid Profile [facility] Work Phone: Start: 08-23-2011 End: 08-23-2011 Echocardiography Echocardiogram (complete) [facility] Work Phone: Start: 08-23-2011 End: 10-01-2013 Follow Up Appt 6 months Follow Up Appt 6 months [facility] Work Phone: Start: 08-23-2011 End: 08-23-2011 Echocardiography Echocardiogram (complete) [facility] Work Phone: Start: 08-23-2011 End: 10-01-2013 Follow Up Appt 6 months Follow Up Appt 6 months [facility] Work Phone: Start: 09-24-2008 PNEUMOCOCCAL: 65+ (1 - PCV) PNEUMOCOCCAL: 65+ (1 - PCV) [facility] Start: 09-24-2008 PNEUMOVAX AGE 65 AND OVER WITH 5YR LOOKBACK (#1) PNEUMOVAX AGE 65 AND OVER WITH 5YR LOOKBACK (#1) [facility] Start: 09-24-1993 SHINGRIX VACCINE (1 of 2) SHINGRIX VACCINE (1 of 2) [facility] Start: 09-24-1988 DIABETES SCREEN DIABETES SCREEN [facility] Start: 09-24-1962 Urine microalbumin profile DTAP,TDAP,TD (1 - Tdap) [facility] Start: 09-24-1961 HEPATITIS C SCREENING HEPATITIS C SCREENING [facility] Start: 1955 Adult depression screening assessment DEPRESSION SCREENING [facility] Patient Education HYPERLIPIDEMIA , HYPERTENSION [facility] Work Phone: [facility] Payers Date Payer Category Payer Medicare HUMANA MEDICARE HU[employer]NA MEDICARE PPO [id number] 2019-Present [phone] [address] [place] [address] PPO [id number] 2019 Medicare HUMANA MEDICARE HU[employer]NA MEDICARE PPO [id number] 2019-Present [phone] [address] [place] [address] PPO [id number] 2019 Medicare [id number] Social History Date Type Detail Facility Start: 01-16-2022 Tobacco smoking stat us PRIS Never smoked tobacco [facility] Start: 09-20-2021 End: 01-16-2022 Alcohol intake Current non-drinker of alcohol (finding) [facility] Start: 1945 Sex Assigned At Not on file [facility] Start: 09-10-2021 End: 01-16-2022 Exposure to SARS-CoV-2 (event) Not sure [facility] Start: 01-16-2022 Tobacco use and exposure Smoke less tobacco non-user [facility] Clinical Notes 09-20-2021 to 09-19-2022 Telephone Encounter - Radha Monge RN - 08/28/2022 12:20 PM EDTTelephone Encounter - Tita Yee - 08/27/2022 3:23 PM EDTTelephone Encounter - Jerica Recinos - 01/22/2022 11:32 AM EDT Note Date & Type Note Facility 09-19-2022 Note HNO ID: [id number] Author: Willie Matthews MD Service: ? Author Type: Physician Type: Progress Notes Filed: 09/19/2022 5:39 PM Note Text: [facility] - FOLLOW UP EVALUATION No referring provider defined for this encounter. Luli Hays MD No address on file I had the pleasure of seeing Mr. Lund for follow up today. He is a 76 year old right-handed male with a history of PD since 2004. He is seen with his . Subjective Previous Plan-01/16/2022 Visit with SS: For your memory, we are sending a prior authorization through to your pharmacy for the medication Rivastimine 4.6mg/24hr transdermal patch. We will be in contact if it is not approved for any reason. Lets try reducing your medication to 1.5 tablets four times per day. This will hopefully help with your left leg moving around throughout the day. 3. I am prescribing home Physical Therapy to help with your walking and balance. Melatonin can be taken every night. Start with 3-5 mg and if you are still acting out your dreams, increase to 10 mg nightly. Interval History: Needing more help. brings him meals to his chair. Doesn't want to walk and carry things at the same time. Needs help getting dressed, get in bed, out of chairs. No dyskinesia. Not sure if worse since Sinemet reduced. Gets 3 doses per day due to forgetting. This is the case for the past month. is helping manage. Walks with cane or walker. Didn't start the Exelon patch. Read it had to be changed at the same time every day and didn't think he could to that. Forgets everything. Hallucinations, sometimes scary. More in the evening. Parkinson's Medication Schedule - as of the start of the visit: Medications 9a 1p 5p 9P Sinemet 25/100 1.5 1.5 1.5 1.5 Parkinson's Motor Complications Medication benefit onset: unclear Medication duration: unclear Wearing off: no Dyskinesia: no Prior Anti-Parkinson Therapies Carbidopa/Levodopa Carbidopa/Levodopa CR (Comment: was in addition to IR, as backup. Walked better without them) Questionnaires In addition, the following areas that may be affected by abnormal involuntary movements were evaluated: Daily activities Difficulties with eating: ok Difficulties in dressing: needs help Difficulties with hygiene activities: needs help Difficulties with handwriting: Difficulties with doing hobbies and other activities: Difficulties turning in bed: Difficulties getting out of bed, car or chair: needs help Tremors/Gait/Balance Shaking or tremors: yes Walking and balance problems: needs device Number of falls in the Last Month: 1 lost balance. Gait freezing: Autonomic/Pain Lightheadeness on standing: Yes (moderate) sometimes. maybe affecting walking some. drinks a lot of water. Urinary problems: Yes (severe) Constipation problems: Yes (moderate) no bad Pain and other sensations: 0 (none) Speech/Swallowing Speech problems: Yes (mild) Droolin (none) Chewing and swallowing problems: no Sleep/Fatigue Sleep problems: Yes (moderate) hit or miss. more bad than good night. trouble falling asleep. 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 takes melatonin occasionally Restless Legs Syndrome: no Leg swelling: Impaired sense of smell: Cognition: Cognitive impairment: yes Forgets names, sometimes comes to him later. Loses train of thought. MoCA Cognitive assessment: 15 (01/16/2022) Hallucinations and delusions: yes Apathy: yes Impulse control disorder: Palliative Concerns: Caregiver burden: Spiritual concerns: Advanced directives on file: Palliative services: Therapy and Exercise: Last PT Date: Last OT Date: ST Date: Exercises Regularly: ALLERGIES No Known Allergies Current Outpatient Medications Medication Sig ramipril (ALTACE) 10 mg capsule cholecalciferol, vitamin D3, (VITAMIN D3 ORAL) Take by mouth. ascorbic acid (VITAMIN C ORAL) Take by mouth. sertraline (ZOLOFT) 100 mg tablet Take 1 tablet by mouth once daily. amLODIPine (NORVASC) 5 mg tablet Take 1 tablet by mouth once daily. LIPITOR 80 MG TAB Take one(1) tablet daily. DIGITEK 250 MCG TAB Take by mouth. metoprolol succinate ER (TOPROL XL) 50 mg 24 hr tablet Take 50 mg by mouth once daily. ECOTRIN LOW STRENGTH 81 MG TAB Take one(1) tablet daily. carbidopa-levodopa (SINEMET 25-100) 25-100 mg per tablet Take 1.5 tablets by mouth four times daily. No current facility-administered medications for this visit. Objective Vital Signs: Ht 177.8 cm (5' 10 ) Wt 63.3 kg (139 lb 9.6 oz) SpO2 100% BMI 20.03 kg/m? Orthostatic Vitals: Sitting: BP 154/72 Pulse 55 Standing: BP 158/74 Pulse 55 Weight: 63.3 kg (139 lb 9.6 oz) Height: 177.8 cm (5' 10 ) No LMP for male patient. Sean (more content not included)... [facility] 08-28-2022 Miscellaneous Notes Attempted to return call to patient/ at below listed number and assess concerns. No answer. Detailed voicemail left with inquiry about changes in medication / recent illnesses. Offered potential VV with KA on 09/06 @ 7a. (Next available visit). [Visit is not held at this time]. Awaiting reply. BRADY Baxter, RN August 28, 2022 12:21 PM NI PHONE Name of caller : spouse Relationship to patient : Spouse/ SignificantOther If not self Will need patient permission to release results or disclose health information with called documented in fyi. Was permission obtained from patient ? Yes Patient identified by Name and Date of . ( Adi Lund, 1945). Yes Reason for Call : calls stating patient is sleeping all the time . His energy is low and can hardly walk . There has not been any recent illness or changes. Attempted to make appointment in tomorrow morning slot with MD but patient had a conflict and she asked if there might be anything to do for him now. Number to return call [phone] Okay to leave a message ? Last office visit 01/16/22 with Cherry No visit scheduled. Thank you calling [facility] [place]. You will receive a return call within 48 hours ( or 2 business days if close to the weekend). If you feel that this is an urgent issue and needs immediate attention, it is recommended that you contact your primary care provider office or proceed to your nearest Urgent Care Center of Emergency Room ED for evaluation/treatment. documented in this encounter [facility] 01-22-2022 Miscellaneous Notes Request from patient requesting refill. RX prescribed by previous neurologist. Please E-Scribe to [facility] (Shon). Last OV: 01/16/22 with SS Future OV: 07/16/22 with KA Requested Prescriptions Pending Prescriptions Disp Refills sertraline (ZOLOFT) 100 mg tablet 90 tablet 3 Sig: Take 1 tablet by mouth once daily. Jerica Mclaughlin documented in this encounter [facility] 01-16-2022 Note HNO ID: [id number] Author: Cherry Bernal APRN.[employer] Service: ? Author Type: Nurse Practitioner Type: Progress Notes Filed: 01/17/2022 2:48 PM Note Text: [facility] - FOLLOW UP EVALUATION Luli Hays MD No address on file I had the pleasure of seeing Mr. Lund for follow up today. He is a 76 year old right-handed male with a history of PD since 2004. He is seen with his . Subjective Previous Plan-09/20/2021 Visit: dreams - Try melatonin for sleep and to help suppress the dreams. Start with 3 mg at bedtime and increase as needed and tolerated every few days. No more than 9-12 mg per day. Acting out dreams is very common in Parkinson's patients. It is important to protect yourself from injury you could sustain while acting out a dream. 1. Move any breakable items and nightstands away from your bed. 2. If you have any weapons in your home, make sure they are stored safely and securely away from where you sleep. 3. If you have violent episodes, consider sleeping separately from your partner. 4. If you often fall or jump out of your bed, you might try using a sleeping bag on the floor, mat, or a padded bed rail. Lower the bed as much as possible. 5. Keep a clear path to the bathroom, include a dim lit night light. 6. Do not keep rugs in the bedroom/bathroom to avoid a trip hazard. 7. Avoid alcohol use 8. It is important to continue discussion and review safety with your family members, including those in the home, or whom you share a bed with. Parkinson's - increase Sinemet to 2 tabs 4 times a day walking - physical therapy Interval History: He has not noticed any benefit from increasing Sinemet to QID. Parkinson's Medication Schedule - as of the start of the visit: Medications 9a 1p 5p 9P Sinemet 25/100 2 2 2 2 Parkinson's Motor Complications Medication benefit onset: unclear Medication duration: unclear Wearing off: yes (Comment: sometimes before evening dose) Dyskinesia: yes (Comment: sometimes, no pattern) Prior Anti-Parkinson Therapies Carbidopa/Levodopa Carbidopa/Levodopa CR (Comment: was in addition to IR, as backup. Walked better without them) In addition, the following Parkinson-associated features were evaluated: Tremors/Gait/Balance Shaking or tremors: Yes: medication only dampens tremor Walking and balance problems: Yes: mild, sometimes he doesn't walk well. Number of falls in the Last Month: No Gait freezing: Yes: notices this a lot Autonomic/Pain Lightheadeness on standing: No Urinary problems: Yes: frequency and urgency Constipation problems: Yes lately this has been hard for him. 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 Loses train of thought. [place] Cognitive Assessment (MoCA): 15 (01/16/2022 3:30 PM) Hallucinations and delusions: yes Apathy: yes Depression: Anxiety: Finally, the following table shows the patient's overall global physical and mental health using the PROMIS scale relative to the previous visit: *PROMIS-10 scoring scale: mean = 50, over 50 is above average, under 50 is below average ALLERGIES No Known Allergies Current Outpatient Medications Medication Sig sertraline (ZOLOFT) 100 mg tablet amLODIPine (NORVASC) 5 mg tablet Take 1 tablet by mouth once daily. carbidopa-levodopa (SINEMET 25-100) 25-100 mg per tablet Take 2 tablets by mouth four times daily. LIPITOR 80 MG TAB Take one(1) tablet daily. DIGITEK 250 MCG TAB Take one(1) tablet daily. metoprolol succinate ER (TOPROL XL) 50 mg 24 hr tablet Take 50 mg by mouth once daily. LASIX 40 MG TAB Take one(1) tablet daily. ECOTRIN LOW STRENGTH 81 MG TAB Take one(1) tablet daily. rivastigmine (EXELON) 4.6 mg/24 hour patch Apply 1 Patch as directed once daily. No current facility-administered medications for this visit. Objective Vital Signs: Ht 175.3 cm (5' 9 ) Wt 67.4 kg (148 lb 9.6 oz) SpO2 97% BMI 21.94 kg/m? Orthostatic Vitals: Sitting: BP 161/77 Pulse 55 Standing: BP 165/80 Pulse 55 Weight: 67.4 kg (148 lb 9.6 oz) Height: 175.3 cm (5' 9 ) No LMP for male patient. Body mass index is 21.94 kg/m?. General Physical Examination: He is accompanied by his spouse. General: Awake, alert, interactive, no acute distress, good nutritional status, normal development, well-kept Movement Disorders Scales Performed: MDS-UPDRS Motor subscale condition of exam Medicatio (more content not included)... [facility] 01-16-2022 Instructions Cherry Bernal APRN.[employer] - 01/16/2022 4:03 PM EDT For your memory, we are sending a prior authorization through to your pharmacy for the medication Rivastimine 4.6mg/24hr transdermal patch. We will be in contact if it is not approved for any reason. Lets try reducing your medication to 1.5 tablets four times per day. This will hopefully help with your left leg moving around throughout the day. 3. I am prescribing home Physical Therapy to help with your walking and balance. Melatonin can be taken every night. Start with 3-5 mg and if you are still acting out your dreams, increase to 10 mg nightly. Updated Parkinson's Medication Schedule: Medications 9a 1p 5p 9P Sinemet 25/100 1.5 1.5 1.5 1.5 I am hoping this medication change will do the following things: reduce your daily fatigue slightly, reduce the extra movement on your left leg, and reduce any potential for hallucinations. documented in this encounter [facility] 01-16-2022 History of Present illness Narrative [facility] - FOLLOW UP EVALUATION Luli Hays MD No address on file I had the pleasure of seeing Mr. Lund for follow up today. He is a 76 year old right-handed male with a history of PD since 2004. He is seen with his . Subjective Previous Plan-09/20/2021 Visit: dreams - Try melatonin for sleep and to help suppress the dreams. Start with 3 mg at bedtime and increase as needed and tolerated every few days. No more than 9-12 mg per day. Acting out dreams is very common in Parkinson's patients. It is important to protect yourself from injury you could sustain while acting out a dream. 1. Move any breakable items and nightstands away from your bed. 2. If you have any weapons in your home, make sure they are stored safely and securely away from where you sleep. 3. If you have violent episodes, consider sleeping separately from your partner. 4. If you often fall or jump out of your bed, you might try using a sleeping bag on the floor, mat, or a padded bed rail. Lower the bed as much as possible. 5. Keep a clear path to the bathroom, include a dim lit night light. 6. Do not keep rugs in the bedroom/bathroom to avoid a trip hazard. 7. Avoid alcohol use 8. It is important to continue discussion and review safety with your family members, including those in the home, or whom you share a bed with. Parkinson's - increase Sinemet to 2 tabs 4 times a day walking - physical therapy Interval History: He has not noticed any benefit from increasing Sinemet to QID. Parkinson's Medication Schedule - as of the start of the visit: Medications 9a 1p 5p 9P Sinemet 25/100 2 2 2 2 Parkinson's Motor Complications Medication benefit onset: unclear Medication duration: unclear Wearing off: yes (Comment: sometimes before evening dose) Dyskinesia: yes (Comment: sometimes, no pattern) Prior Anti-Parkinson Therapies Carbidopa/Levodopa Carbidopa/Levodopa CR (Comment: was in addition to IR, as backup. Walked better without them) In addition, the following Parkinson-associated features were evaluated: Tremors/Gait/Balance Shaking or tremors: Yes: medication only dampens tremor Walking and balance problems: Yes: mild, sometimes he doesn't walk well. Number of falls in the Last Month: No Gait freezing: Yes: notices this a lot Autonomic/Pain Lightheadeness on standing: No Urinary problems: Yes: frequency and urgency Constipation problems: Yes lately this has been hard for him. 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 Loses train of thought. [place] Cognitive Assessment (MoCA): 15 (01/16/2022 3:30 PM) Hallucinations and delusions: yes Apathy: yes Depression: Anxiety: Finally, the following table shows the patient's overall global physical and mental health using the PROMIS scale relative to the previous visit: *PROMIS-10 scoring scale: mean = 50, over 50 is above average, under 50 is below average ALLERGIES No Known Allergies Current Outpatient Medications Medication Sig sertraline (ZOLOFT) 100 mg tablet amLODIPine (NORVASC) 5 mg tablet Take 1 tablet by mouth once daily. carbidopa-levodopa (SINEMET 25-100) 25-100 mg per tablet Take 2 tablets by mouth four times daily. LIPITOR 80 MG TAB Take one(1) tablet daily. DIGITEK 250 MCG TAB Take one(1) tablet daily. metoprolol succinate ER (TOPROL XL) 50 mg 24 hr tablet Take 50 mg by mouth once daily. LASIX 40 MG TAB Take one(1) tablet daily. ECOTRIN LOW STRENGTH 81 MG TAB Take one(1) tablet daily. rivastigmine (EXELON) 4.6 mg/24 hour patch Apply 1 Patch as directed once daily. No current facility-administered medications for this visit. Objective Vital Signs: Ht 175.3 cm (5' 9 ) Wt 67.4 kg (148 lb 9.6 oz) SpO2 97% BMI 21.94 kg/m Orthostatic Vitals: Sitting: BP 161/77 Pulse 55 Standing: BP 165/80 Pulse 55 Weight: 67.4 kg (148 lb 9.6 oz) Height: 175.3 cm (5' 9 ) No LMP for male patient. Body mass index is 21.94 kg/m . General Physical Examination: He is accompanied by his spouse. General: Awake, alert, interactive, no acute distress, good nutritional status, normal development, well-kept Movement Disorders Scales Performed: MDS-UPDRS Motor subscale condition of exam Medication Off/On/Naiive ON Time of UPDRS 1519 Time of Last Medication 1300 Last Medication Taken Sinemet 25/100 2 tabs DBS Right N/A DBS Left N/A MDS-UPDRS Motor subscale scores Speech 2-Mild. Loss of modulation, diction, or volume, with a few words unclear, but the overall sentences easy to follow. Facial Expression 2-Mild. In addition to decreased eye-blink frequency, Masked facies present in the lower face as well, namely fewer movements around the mouth, such as less spontaneous smiling, but lips not parted. Rigidity Neck 0-Normal. No rigidity. Rigidity Right Upper Extremity 2-Mild. Rigidity detected without the activation maneuver, but full range of motion is easily achieved. Rigidity Left Upper Extremity 0-Normal. No rigidity. Rigidity Right Lower Extremity 0-Normal. No rigidity. Rigidity Left Lower Extremity 0-Normal. No rigidity. Finger Taps Right 1-Slight. a) the regular rhythm is broken with one or two interruptions or hesitations of the tapping movement, b) slight slowing, c) the amplitude decrements near the end of the 10 taps. Finger Taps Left 1-Slight. a) the regular rhythm is broken with one or two interruptions or hesitations of the tapping movement, b) slight slowing, c) the amplitude decrements near the end of the 10 taps. Hand Movements Right 0-Normal. No problem. Hand Movements Left 0-Normal. No problem. Arm Movements Right 0-Normal. No problems. Arm Movements Left 0-Normal. No problems. Toe Taps Right 2-Mild. a) 3 to 5 interruptions during the tapping movements, b) mild slowing, c) the amplitude decrements midway in the task. Toe Taps Left 2-Mild. a) 3 to 5 interruptions during the tapping movements, b) mild slowing, c) the amplitude decrements midway in the task. Leg Agility Right 1-Slight. a) the regular rhythm is broken with one or two interruptions or hesitations of the movement, b) slight slowing, c) the amplitude decrements near the end of the task. Leg Agility Left 1-Slight. a) the regular rhythm is broken with one or two interruptions or hesitations of the movement, b) slight slowing, c) the amplitude decrements near the end of the task. Arise From Chair 1-Slight. Arising is slower than normal, or may need more than one attempt, or may need to move forward in the chair to arise. No need to use the arms of the chair. Gait 2-Mild. Independent walking but with substantial gait impairment. Gait Freezing 0-Normal. No freezing. Posture Stability 0-Normal. No problems: recovers with one or two steps. Posture 2-Mild. Definite flexion, scoliosis or leaning to one side, but patient can correct posture to normal posture when asked to do so. Body Bradykinesia 1-Slight. Slight global slowness and poverty of spontaneous movements. Postural Tremor Hand Right 1-Slight. Tremor is present but less than 1cm in amplitude. Postural Tremor Hand Left 1-Slight. Tremor is present but less than 1cm in amplitude. Kinetic Tremor Right 0-Normal. No tremor. Kinetic Tremor Left 0-Normal. No tremor. Rest Tremor Amplitude Right Upper Extremity 2-Mild. > 1 cm but < 3 cm in maximal amplitude. Rest Tremor Amplitude Left Upper Extremity 1-Slight. < 1 cm in maximal amplitude. Rest Tremor Amplitude Right Lower Extremity 1-Slight. < 1 cm in maximal amplitude. Rest Tremor Amplitude Right Lower Extremity 1-Slight. < 1 cm in maximal amplitude. Rest Tremor Amplitude Lip/Jaw 0-Normal. No tremor. Rest Tremor Constancy 3-Moderate. Tremor at rest is present 51-75% of the entire examination period. MDS-UPDRS Motor subscale totals Left Total 7 Right Total 10 Midline Total 10 Tremor Total / 10 10 PIGD Total / 3 2 Overall Total 30 % Change Compared to Last Filed Total Assessment and Plan: Assessment Mr. Lund is a right-handed 76 year old male with PD since 2004. He is unsure if his medications kick in or wear off but he does feel at some point of the day his tremor has improved. His walking is affected by shuffling and some freezing of gait at times. He states he feels his memory is getting worse every day. He loses his train of thought at times and forgets names. His REM sleep behavior disorder has slightly improved after taking melatonin however he recently stopped it because his thought that it was not good to take it every night. I educated them on the difference of Parkinson's patients who need melatonin and people who do not have Parkinson's disease. I did a [place] today, and he scored a 15. Due to this we are going to start rivastigmine and see if he tolerates it. We will try to get the patches since he has a history of diarrhea of unknown cause which is intermittent in nature. He does have trouble some dyskinesias at times with his left leg, and he also has severe fatigue during the day. Because of this I am suggesting reducing Sinemet to 1-1/2 tabs 5 times per day. Since he is not having kicking in or wearing off I am not sure he will notice this change in terms of his symptom control. I am also prescribing home physical therapy to help with his walking as his gait is rather affected. They have requested to have home PT since he has difficulty getting out and memory impairment. The following are the current problems noted and addressed during this visit: Parkinson disease (hcc) (primary encounter diagnosis) Plan 01/16/2022 Visit: For your memory, we are sending a prior authorization through to your pharmacy for the medication Rivastimine 4.6mg/24hr transdermal patch. We will be in contact if it is not approved for any reason. Lets try reducing your medication to 1.5 tablets four times per day. This will hopefully help with your left leg moving around throughout the day. 3. I am prescribing home Physical Therapy to help with your walking and balance. Melatonin can be taken every night. Start with 3-5 mg and if you are still acting out your dreams, increase to 10 mg nightly. Updated Parkinson's Medication Schedule: Medications 9a 1p 5p 9P Sinemet 25/100 1.5 1.5 1.5 1.5 I am hoping this medication change will do the following things: reduce your daily fatigue slightly, reduce the extra movement on your left leg, and reduce any potential for hallucinations. Level of service : 54436 (40-54 min). Time spent 45 min on the day of service, which included preparing to see the patient, [id number] patient care, completing clinical documentation, obtaining and/or reviewing separately obtained history, performing a medically appropriate examination, counseling and educating the patient/family/caregiver, ordering medications, tests, or procedures, independently interpreting results (not separately reported), communicating results to the patient/family/caregiver, and care coordination (not separately reported). Thank you for allowing me to be part of the clinical care of this patient! I look forward to continued participation in the patient s care with you. Please do not hesitate to call with any questions. Sincerely, Cherry Bernal APRN.[employer] documented in this encounter [facility] 09-20-2021 Note HNO ID: [id number] Author: Willie Matthews MD Service: ? Author Type: Physician Type: Progress Notes Filed: 09/23/2021 9:15 AM Note Text: [facility] - NEW PATIENT EVALUATION Luli Hays MD No address on file I had the pleasure of evaluating Mr. Lund to our clinic today. As you know he is a 75 year old right-handed male who is self referred for evaluation of PD since 2004. He is seen with his . Subjective HISTORY OF PRESENT ILLNESS: Initial HPI Started with tremor around 2004. Started on the right side. Little bit on the left now. Diagnosed around that time. Neurologist left [place]. Would like walking to be better. Doesn't stand up straight. Shuffles. Can lose balance. Maybe some freezing. Has done PT as [facility] but not lately. Has fallen out of bed a few times dreaming. Can act out a couple of times per week. Legs kick. Hits. Grabbed 's hand. They still sleep together. Hard to turn in bed and get out of bed, chair, car. Hallucinations for awhile. Flashes. Knows they're not there. Sometimes bothersome. Wishes they weren't there. Not scary. Mood is variable. Anxiety and irritability. On sertraline for awhile. No side effects. Top priorities- better balance and walking. Parkinson's Medications Schedule - as of the start of the visit: Sinemet 25/100 2 2 2 Parkinson's Motor Complications Wearing off: yes (Comment: sometimes before evening dose) Dyskinesia: yes (Comment: sometimes, no pattern) Prior Anti-Parkinson Therapies Carbidopa/Levodopa Carbidopa/Levodopa CR (Comment: was in addition to IR, as backup. Walked better without them) In addition, the following Parkinson-associated features were evaluated: Daily activities Difficulties with eating: No Difficulties in dressing: No Difficulties with hygiene activities: No Difficulties with handwriting: Yes: not good, variable. Just cannot read it, sloppy, small Tremors/Gait/Balance Shaking or tremors: Yes: Walking and balance problems: Yes: Number of falls in the Last Month: No Autonomic/Pain Lightheadeness on standing: No Urinary problems: Yes: urgency, sometimes nocturia Constipation problems: Yes: sometimes. Speech/Swallowing Speech problems: Yes: soft and muffled, mumbles. No speech therapy. Drooling: Yes: occasionally at night Chewing and swallowing problems: No Sleep/Fatigue Problems sleeping at night: No- just the dreams REM sleep behavior disorder: yes Restless Legs Syndrome: no Mood/Behavior/Cognition Cognitive impairment: yes Forgets names, sometimes comes to him later. Loses train of thought. No Data Recorded Hallucinations and delusions: yes Apathy: yes Finally, the following table shows the patient's overall global physical and mental health using the PROMIS scale relative to the previous visit: *PROMIS-10 scoring scale: mean = 50, over 50 is above average, under 50 is below average Review of Systems Review of Systems Constitutional Positive for Fatigue Negative for Fevers, Night Sweats, Weight Gain and Weight Loss Eyes Positive for Change in vison not corrected by glasses and Vision loss or change Hent Positive for Hearing Loss Negative for Difficulty Swallowing, Tinnitus and Recent change in speech or voice Cardiovascular: Negative Respiratory Positive for SOB with exertion and Snoring Negative for SOB at rest, Cough and Wheezing GI Positive for Diarrhea and Constipation Negative for Blood in Stool, Abdominal Pain, Nausea/Vomiting and Heartburn Positive for Urgency, Incontinence and Sexual Dysfunction Negative for Impotence Endocrine Positive for Heat Intolerance Negative for Excessive Thirst and Menstrual Cycle Irregularities Musculoskeletal Positive for Back Pain, Joint Swelling, Stiff Joints and Muscle Pain Integumentary Positive for Hair Changes Negative for Rashes, Itching and Other Lesions Heme/Lymph Positive for Prolonged Bleeding and Easy Bruising Negative for Swelling of Arm or Leg Allergy/Immunologic: Negative Neurologic Positive for Memory Problems, Headache, Numbness/Tingling and Weakness Negative for Double Vision, Trouble Swallowing and Slurred Speech Psychiatric Positive for Stress or Conflicts, Depression, Anxiety, Irritability, Hallucinations and Delusions Patient's Review of Systems has been reviewed with the patient and updated as appropriate. ALLERGIES No Known Allergies Current Outpatient Medications Medication Sig - sertraline (ZOLOFT) 100 mg tablet - carbidopa-levodopa (SINEMET 25-100) 25-100 mg per tablet Take 2 tablets by mouth three times daily. - amLODIPine (NORVASC) 5 mg tablet Take 1 tablet by mouth once daily. - LIPITOR 80 MG TAB Take one(1) tablet daily. - DIGITEK 250 MCG TAB Take one(1) tablet daily. - metoprolol succinate ER (TOPROL XL) 50 mg 24 hr tablet Take 50 mg by mouth once daily. - LASIX 40 MG TAB Take one(1) tablet daily. (more content not included)... [facility] 09-20-2021 Instructions Willie Matthews MD - 09/20/2021 10:20 AM EDT Images from the original note were not included. It was a pleasure to see you today. We addressed the following diagnoses: Parkinson disease (hcc) (primary encounter diagnosis) Rbd (rem behavioral disorder) Gait instability My recommendations are as follows: 09/20/2021 Visit: dreams - Try melatonin for sleep and to help suppress the dreams. Start with 3 mg at bedtime and increase as needed and tolerated every few days. No more than 9-12 mg per day. Acting out dreams is very common in Parkinson's patients. It is important to protect yourself from injury you could sustain while acting out a dream. 1. Move any breakable items and nightstands away from your bed. 2. If you have any weapons in your home, make sure they are stored safely and securely away from where you sleep. 3. If you have violent episodes, consider sleeping separately from your partner. 4. If you often fall or jump out of your bed, you might try using a sleeping bag on the floor, mat, or a padded bed rail. Lower the bed as much as possible. 5. Keep a clear path to the bathroom, include a dim lit night light. 6. Do not keep rugs in the bedroom/bathroom to avoid a trip hazard. 7. Avoid alcohol use 8. It is important to continue discussion and review safety with your family members, including those in the home, or whom you share a bed with. Parkinson's - increase Sinemet to 2 tabs 4 times a day walking - physical therapy Constipation- information below Movement Disorders Medication Schedule: 9a 1p 5p 9P Sinemet 25/100 2 2 2 2 Return in about 3 months (around 12/21/2021) for Can be seen with [facility]. If there are any concerns before your next visit, please call or you can send a message through [facility]. You can also now schedule and select appointments through [facility]. Willie Matthews MD Constipation and Other Gastrointestinal Problems in Parkinson's Disease As you know, Parkinson s disease (PD) affects many body systems, not just movement. This includes the autonomic nervous system that is, the part of the nervous system that controls automatic bodily functions such as heart rate, blood pressure, sweating, sexual function and both gastrointestinal and urinary function. These can be among the most serious and complex issues faced by people with PD. Constipation, cramping and bloating are all common among people with Parkinson s. These issues can be caused both by the disease itself and by the medications used to treat it. The good news is that there are steps that you can take to lessen its impact on your life. Stomach Problems Impaired ability to empty the contents of the stomach, called gastroparesis, is a potential complication of PD. This may produce a bloated sensation and cause you to feel full even if you have eaten very little. Sometimes nausea may develop. Failure of the stomach to empty in a timely fashion may also impair or delay the effectiveness of PD medications, especially levodopa. Levodopa is absorbed from the small intestine and cannot get to its destination if it is trapped in the stomach. Unfortunately, treatment of gastroparesis in PD has not been extensively studied, and there are not many treatment options. Domperidone is an effective medication, but it is not available in the [place]. FDA approved Duopa , a form of levodopa designed to be delivered directly into the small intestine, may be helpful for some people experiencing gastroparesis. New levodopa delivery methods that bypass the stomach might help in the future, such as a skin patch, supplemental treatment with DBS, sublingual, or subcutaneous agonists. Constipation Constipation means difficulty passing stools (bowel movement, feces), a decrease in the number of stools, or both. It is often accompanied by one or more of the following symptoms: No stool (bowel movement) for days Distention (bloating) of abdomen, cramping, a feeling of pressure in the lower abdomen Straining to eliminate Incomplete evacuation of stool Hard, pellet stools Constipation can be acute (sudden onset of short duration) or chronic (persisting for several weeks or longer). In PD, constipation is likely to be chronic. When constipation is severe, the stool stays in the colon and backs up , causing a condition called impaction. Most healthcare providers describe constipation as having less than three bowel movements a week and recommend treatment after three days without a bowel movement, but everyone is slightly different. The frequency of bowel movements depends on what you have been eating and drinking, and the unique functioning of your own body. If you are experiencing fewer than three bowel movements in a week or have any of the symptoms listed, talk to your healthcare provider. Why Do I Get Constipated? We are still learning about constipation in PD and why it happens. Here is what we know: Parkinson s Disease The same changes that occur in brain cells in Parkinson s disease may also occur in nerve cells in the spinal cord and the intestinal wall. These changes may slow down the muscles that push food through the intestines. Medications Medications used to treat PD in particular, the class called anticholinergics and the medication amantadine, used to treat dyskinesia are known for causing constipation. If you are on these medications, your healthcare provider may be able to reduce your dose or switch you to a different one. But for some people, the benefits of the medication outweigh the possibility of constipation. Decrease in Physical Activity Because people with Parkinson s disease experience difficulty with their movement, they often become less active. People with PD who increase their movement experience better overall functioning, which includes their digestive system. Decreased Water Intake Many people with Parkinson s disease limit their fluids to avoid making frequent trips to the bathroom. When a person drinks less liquid, the gut may not have the lubrication it needs to have a bowel movement, which contributes to constipation. Genetic Predisposition It is possible to have a family predisposition to constipation. Ask family members what solutions work for them. Your body may respond to the same strategies. Individual Body Chemistry Genetics aside, you are unique. Pay attention to your body and what is normal for you. Preventing Constipation Will your constipation get better? It is possible, but it depends in part on your own efforts. Of course, your healthcare provider and the medications he or she recommends play an important role. Still, constipation may persist despite your doctor s recommendations. That s where you come in. It is critical to put a daily plan in place one that can even prevent constipation before it begins. This is called creating a bowel program - Here are some strategies: Drink a lot of fluid (i.e., at least eight 8-oz glasses, excluding caffeine and alcohol, which act as diuretics and can aggravate constipation). It can be especially helpful to drink warm liquids, such as flavored sparkling espinosa or lemonade, on rising and with breakfast, as warm liquid and food start bowel activity. Eat meals at the same times each day. Increase your fiber (e.g., cooked dried beans or fruits and vegetables with edible skins). Eat more foods that create bulk (e.g., whole grains and vegetables). Minimize your intake of low fiber starchy foods (e.g., breads, cookies, cake) or avoid them completely. Starchy foods do a great job at plugging up the digestive system! Try to establish a relaxed, regular time of the day for bowel movements. (About 1/2 hour after a meal is best as there is normally greater bowel activity at this time.) However, it also will help to train yourself to honor the urge to have a bowel movement. It may not always occur first thing in the morning or only at home! Be aware that the natural position for evacuating the bowel is squatting. Raised toilet seat devices may aid mobility but are not ideal for bowel function. Try hiking your feet up on a small bench while sitting on the toilet. Exercise more. Walk, dance, ride bikes or swim. Living with PD Constipation and Other Gastrointestinal Problems in PD Keep in mind that what works for one person may not work for another. You are unique. Pay attention to your body s individual habits and needs. The best way to do this is to keep an activity log or diary, like the Constipation Tracker on Page 8, where you can keep track of when you experience constipation. Record what else happened that day what you ate, if you exercised, when you took medications and look for patterns. This will help you figure out what triggers your constipation, how long it lasts, and what it responds to under varying circumstances. Then take steps to help prevent the constipation. It may take trial and error, but with time (can take weeks to months) and effort, you can begin to understand what works for you. Managing Constipation If you have tried the tips above but they did not work, what should you do next? The primary goals will be to manage your symptoms, avoid complications (such as impaction, hemorrhoids and a dependence on laxatives), and prevent future constipation. Treatments fall into two categories: [id number] and prescription therapies. Remember: consult with your healthcare provider before deciding on how to treat your constipation. The best treatment for constipation will vary from person to person, taking into account a variety of factors, including: other medical condition(s), medications or allergies that impact your treatment, the cost of treatment, the type of treatment used, how often the treatment must be taken/done in a day and your own convenience and preference. [id number]-eub-[id number] Products [id number] treatments for constipation can be purchased at your local pharmacy. There are several categories listed on the following pages, all of which work in different ways. They are offered in a variety of forms including capsule, powder, granule, syrup, gum, tablet, liquid and wafer. The best choice for you will depend on personal preferences and how your body responds. Preferred products are those that mimic the way the body works normally, i.e., by increasing bulk, fluids or lubricants in the intestines. It is important to note that stimulating laxatives, enemas, suppositories and combination products create dependence and are considered a last option, and should be used only when all others have been exhausted. Here are some things to keep in mind before selecting any products to address your constipation Relatively mild laxatives may be used while establishing a bowel program, but they are NOT a replacement for diet and bulk formers. Use them sparingly while you continue with your program. All laxatives should be used with caution. They activate the bowel by chemical irritation. Long-term use may actually harm the bowel. The bowel can easily become dependent on enemas. We recommend that you use enemas only when nothing else works. You may need to use suppositories while establishing a bowel program. If needed, use Glycerin daily or every other day. DO NOT use Dulcolax , as it is habit-forming and irritates the bowel. The following are listed in order of ease of consumption, cost, volume of therapeutic dose, taste. See list of common side effects. Senna Teas (caffeine free) These teas are herbal products whose use dates back to physicians in the ninth century! Drink a cup with dinner or in the evening and you should experience gentle, overnight relief from constipation in PD. Use senna teas with caution if you have a heart condition and are using Lanoxin (digoxin) or a diuretic. It also comes as a capsule (Senna Nekoosa Smooth Move ). ving with PD Constipation and Other Gastrointestinal Problems in PD Emollients (stool softeners) These work by allowing more fluid into the fecal material. They contain wetting agents that improve the ability of water to mix with stool, which softens the stool. They do not stimulate bowel movements or increase bowel movement frequency. They make the stool softer and easier to pass. These can be used intermediate but should not be used in combination with products containing mineral oil. Some people with PD find the stool is soft, but difficult to pass as the muscles in the lower abdomen may not be strong enough or the momentum is slowed due to the disease. Examples include docusate (Colace and Surfak ). Bulk Formers These work by creating bulk in the intestinal tract.Many types of fiber products bind with water in the intestine, keeping the water in the intestine to soften the stool, while adding bulk/volume to it. They must be taken with at least eight ounces of water. Bulk formers produce results in 12 to 72 hours and are safe for long-term use. Examples include guar gum (Benefiber ); inulin (FiberSure ); methylcellulose (Citrucel ); malt soup extract (Maltsupex ); polycarbophil (Fibercon ); psyllium (Konsyl ). Lubricants These work by lubricating the intestinal tract. They contain mineral oil, which coats the particles of stool, making it softer. Mineral oil does not stimulate a bowel movement or increase bowel movement frequency. Like emollients, it makes the stool easier to pass. They should only be used for short periods of time or periodically, as the oil can absorb some vitamins. They should not be used when taking warfarin (Coumadin ). An example is mineral oil (Fleet ). When purchasing, be sure to purchase just mineral oil, without any additives. Os motic Laxatives These work by drawing fluids into the intestinal tract. They are indigestible, nonabsorbable compounds that assist in retaining water in the colon, thereby softening the stool. Osmotic laxatives produce a bowel movement within one to three days. They may cause gas initially, but this usually resolves. Osmotic laxatives are safe for long-term use. Diabetics need to be especially careful in their choice of an osmotic laxative as large sugar molecules (e.g. sorbitol) are sometimes used. Examples include lactulose (Kristalose ); polyethylene glycol 3350 (MiraLax ); polyethylene glycol (GlycoLax ); sorbitol. Saline Laxatives These contain magnesium, sulfate, phosphate or citrate. They cause a softening of the stool by retaining water in the colon. They generally work within several hours. In general, they should not be used on a regular basis as they can cause dehydration and electrolyte problems. People with kidney disease, congestive heart failure, or those who are advised by their healthcare provider to control salt and water intake should not take saline laxatives. For mild results, examples include magnesium hydroxide (Milk of Magnesia ), sodium biphosphate and sodium phosphate (Fleet , Phospho-Soda , Visicol ). For strong results, examples include magnesium sulfate (Epsom salt). Stimulant Laxatives (Not for long-term use) These should be used sparingly with PD and only after other remedies have failed. Among the ouhu-ndr-jwapqjm laxatives, they are most likely to cause diarrhea and cramping. Chronic use can lead to colon damage. They work by causing the muscles of the small intestine and colon to propel their contents more rapidly. Some stimulant laxatives increase the absorption of water in the small intestine. Examples include bisacodyl (Dulcolax , Correctol ); castor oil; casanthranol; cascara (Nature s Remedy ) senna. Enemas Enemas stimulate the colon to contract and eliminate stool. They are useful in PD when there is impaction. In most cases, routine use should be avoided as they affect the fluid and electrolyte balance in the body. Soap suds enemas, commonly used in the past, should not be used as they can damage the rectum. Examples of common enema preparations include docusate sodium (Colace ), saline enema, microenema, tap water enema, mineral oil enemas. Suppositories A suppository is a wax-like form which is lubricated and inserted directly into the rectum as high as the finger can put it. Suppositories provide rectal stimulation to empty the bowel. Stool must be present in the rectum for suppositories to be effective. Suppositories must make contact with the inside wall of the rectum to work. They should be refrigerated until used or they can melt. Glycerin suppositories provide lubrication, while bisacodyl suppositories contain the stimulant laxative bisacodyl. Examples include bisacodyl (Dulcolax ) and glycerin. Combination Products These products combine two or three of thepreviously mentioned ingredients and stimulate bodily and intestinal functions. They can be convenient and effective. Those containing artificial stimulants should not be used in most long-term situations. Examples includecasanthranol (Sof-Lax Overnight ); docusate (Keira-Colace , Senokot ); glycerin; senna; senna and glycerin (Joshi s Laxative ); and senna and psyllium (Perdiem ). Common Side Effects of Axby-ywn-Pcakcvb Products for Constipation Emollient (Stool Softeners) Skin rash Stomach and/or intestinal cramping Bulk Forming Skin rash or itching Difficulty swallowing Intestinal blockage Difficulty breathing Lubricant Skin irritation surrounding rectal area Aspiration (medication sucked into lungs) Os motic Bloating Cramping Gas Increased thirst Nausea Saline Confusion Dizziness or lightheadedness Irregular heartbeat Muscle cramps Unusual tiredness or weakness Stimulants Belching Cramping Diarrhea Nausea Confusion Irregular heartbeat Muscle cramps Discoloration of urine (for cascara and/or senna only), e.g. pink to red, red to nino, red to brownish color Skin rash Unusual tiredness or weakness Note: side effects very from person to person. Please consult your healthcare provider if you have concerns about any side effects listed. Prescription Products When atxm-oge-ojaspgv remedies fail, your healthcare provider may recommend prescription products to treat constipation. Right now, there are two remedies approved by the U.[place]. Food and Drug Administration (FDA). They are often available by generic name or trade name (the trade name product is generally more expensive). Lubiprostone (Amitiza): works by increasing stool water content. Side effects include headache, nausea, diarrhea, abdominal pain and vomiting. Linaclotide (Linzess): increases bowel movement frequency. Its most common side effect is diarrhea. Living with PD Constipation and Other Gastrointestinal Problems in PD What s Right for Me? Your objective is to be as comfortable as possible. Know What to Avoid Impaction (i.e., solid bulk of stool in the rectum that must be manually removed). Hemorrhoids (distention of veins in area of anus). Chronic dependence on laxatives. Complications from other diseases you have that can be worsened by treatments for constipation. Know Your Normal Habits Assess your normal by logging your elimination habits versus your dietary intake, the fluids you consume and exercise for one normal week. Note any changes in your bowel movements early, so you can intervene sooner rather than later (consult your healthcare provider as appropriate). Select the Right Management Plan Consult your healthcare provider. Discuss a trial and error process that considers your medical condition(s), all the drugs you take, and your preferences (form in which taken, frequency/time of administration, taste, effectiveness, etc.). List of Oral Laxatives This list is incomplete, but will help to familiarize you with some products on the market. The list is in alphabetical order with no preference to one brand over another. Brand Name Category Non-Stimulation Stimulating A-3 Revised Combination X Alocass Stimulant X Bisacodyl (Dulcolax ) Stimulant X [place] Oil Stimulant X Cellulose (Unifiber ) Bulk X Dehydrocholic Acid (Cholan-HMB ) Stimulant X Docusate Sodium (Colace ) Emollient X Docusate and Senna (Doc-Q-Lax ) Stimulant X Docusate (Docucal ) Emollient X Docusate (Surfak ) Emollient X Fleet Mineral Oil Lubricant X Guar Gum (Benefiber ) Bulk X Lactulose (Kristalose ) Osmotic X Magnesium Citrate (Citrate Of Magnesia) Saline X Magnesium Hydroxide (Vu Milk of Magnesia) Saline X Magnesium Supplement (Mag-Gel 600 ) Stimulant X Methylcellulose (Citrucel ) Bulk X Phospho-Soda (Fleet Phospho-Soda) Saline X Polyethylene Glycol (GaviLAX ) Osmotic X Polyethylene Glycol (GaviLyte-N with Flavor Pack) Osmotic X Polyethylene Glycol (GlycoLax ) Osmotic X Polycarbophil (Fibercon ) Bulk X Polyethylene Glycol (NuLYTELY ) Combination X Psyllium (Metamucil ) Bulk X [employer] Senna Stimulant X Senna (Black-Draught ) Stimulant X Senna and Docusate (Senna-S) Stimulant X Senna and Docusate (Senokot ) Stimulant X Adapted from: [facility] Website, accessed August 30, 2015, [email or web address] [email or web address]/ [id number] Special Precautions For your safety, consult your healthcare provider before taking any products. Of particular concern should be any of the following: Over-using laxatives could create dependence. Watch for: Signs and symptoms of appendicitis, which could include fever, abdominal pain, loss of appetite. Rectal bleeding from unknown cause. Intestinal blockage. Be careful if you have any of these conditions: Colostomy: potential for diarrhea when bag fills quickly. Ileostomy: potential for diarrhea when bag fills quickly. Type 2 diabetes: some laxatives are high in sugar. Heart disease: straining to eliminate stool can strain the heart, and it may not be able to compensate. High blood pressure: some laxatives are high in sodium. Kidney disease: some laxatives have magnesium and potassium in them. Swallowing difficulty: of concern would be aspiration of the laxative into the lungs causing pneumonia or blockage of the esophagus. Living with PD can be challenging. Motor and non-motor symptoms impact daily life, but there are many things a patient can do to lessen this impact. Daily attention to bowel function is important to feeling one s best and to avoid serious complications such as impaction. If you need further guidance, please contact your health care provider. Contributing authors: Percy Gonzalez, Ph.D., R.N., and Nik Gray, M.S.N., C.R.N.P. Constipation Tracker Day/Date Time Food(s) Eaten Activities Emotional Status Stool Description Feel free to photocopy this page and use it throughout the year to track your symptoms and share with your doctor. This is a patient education material provided by the Parkinson s [employer]. For more information and resources see https://www.parkinson.org/. [facility] is a Center of Excellence for the Parkinson s [employer]. documented in this encounter [facility] 09-20-2021 History of Present illness Narrative [facility] - NEW PATIENT EVALUATION Luli Hays MD No address on file I had the pleasure of evaluating Mr. Lund to our clinic today. As you know he is a 75 year old right-handed male who is self referred for evaluation of PD since 2004. He is seen with his . Subjective HISTORY OF PRESENT ILLNESS: Initial HPI Started with tremor around 2004. Started on the right side. Little bit on the left now. Diagnosed around that time. Neurologist left [place]. Would like walking to be better. Doesn't stand up straight. Shuffles. Can lose balance. Maybe some freezing. Has done PT as [facility] but not lately. Has fallen out of bed a few times dreaming. Can act out a couple of times per week. Legs kick. Hits. Grabbed 's hand. They still sleep together. Hard to turn in bed and get out of bed, chair, car. Hallucinations for awhile. Flashes. Knows they're not there. Sometimes bothersome. Wishes they weren't there. Not scary. Mood is variable. Anxiety and irritability. On sertraline for awhile. No side effects. Top priorities- better balance and walking. Parkinson's Medications Schedule - as of the start of the visit: Sinemet 25/100 2 2 2 Parkinson's Motor Complications Wearing off: yes (Comment: sometimes before evening dose) Dyskinesia: yes (Comment: sometimes, no pattern) Prior Anti-Parkinson Therapies Carbidopa/Levodopa Carbidopa/Levodopa CR (Comment: was in addition to IR, as backup. Walked better without them) In addition, the following Parkinson-associated features were evaluated: Daily activities Difficulties with eating: No Difficulties in dressing: No Difficulties with hygiene activities: No Difficulties with handwriting: Yes: not good, variable. Just cannot read it, sloppy, small Tremors/Gait/Balance Shaking or tremors: Yes: Walking and balance problems: Yes: Number of falls in the Last Month: No Autonomic/Pain Lightheadeness on standing: No Urinary problems: Yes: urgency, sometimes nocturia Constipation problems: Yes: sometimes. Speech/Swallowing Speech problems: Yes: soft and muffled, mumbles. No speech therapy. Drooling: Yes: occasionally at night Chewing and swallowing problems: No Sleep/Fatigue Problems sleeping at night: No- just the dreams REM sleep behavior disorder: yes Restless Legs Syndrome: no Mood/Behavior/Cognition Cognitive impairment: yes Forgets names, sometimes comes to him later. Loses train of thought. No Data Recorded Hallucinations and delusions: yes Apathy: yes Finally, the following table shows the patient's overall global physical and mental health using the PROMIS scale relative to the previous visit: *PROMIS-10 scoring scale: mean = 50, over 50 is above average, under 50 is below average Review of Systems Review of Systems Constitutional Positive for Fatigue Negative for Fevers, Night Sweats, Weight Gain and Weight Loss Eyes Positive for Change in vison not corrected by glasses and Vision loss or change Hent Positive for Hearing Loss Negative for Difficulty Swallowing, Tinnitus and Recent change in speech or voice Cardiovascular: Negative Respiratory Positive for SOB with exertion and Snoring Negative for SOB at rest, Cough and Wheezing GI Positive for Diarrhea and Constipation Negative for Blood in Stool, Abdominal Pain, Nausea/Vomiting and Heartburn Positive for Urgency, Incontinence and Sexual Dysfunction Negative for Impotence Endocrine Positive for Heat Intolerance Negative for Excessive Thirst and Menstrual Cycle Irregularities Musculoskeletal Positive for Back Pain, Joint Swelling, Stiff Joints and Muscle Pain Integumentary Positive for Hair Changes Negative for Rashes, Itching and Other Lesions Heme/Lymph Positive for Prolonged Bleeding and Easy Bruising Negative for Swelling of Arm or Leg Allergy/Immunologic: Negative Neurologic Positive for Memory Problems, Headache, Numbness/Tingling and Weakness Negative for Double Vision, Trouble Swallowing and Slurred Speech Psychiatric Positive for Stress or Conflicts, Depression, Anxiety, Irritability, Hallucinations and Delusions Patient's Review of Systems has been reviewed with the patient and updated as appropriate. ALLERGIES No Known Allergies Current Outpatient Medications Medication Sig sertraline (ZOLOFT) 100 mg tablet carbidopa-levodopa (SINEMET 25-100) 25-100 mg per tablet Take 2 tablets by mouth three times daily. amLODIPine (NORVASC) 5 mg tablet Take 1 tablet by mouth once daily. LIPITOR 80 MG TAB Take one(1) tablet daily. DIGITEK 250 MCG TAB Take one(1) tablet daily. metoprolol succinate ER (TOPROL XL) 50 mg 24 hr tablet Take 50 mg by mouth once daily. LASIX 40 MG TAB Take one(1) tablet daily. ECOTRIN LOW STRENGTH 81 MG TAB Take one(1) tablet daily. No current facility-administered medications for this visit. Past Medical and Surgical History: has a past medical history of Atrial fibrillation (HCC), Coronary atherosclerosis of unspecified type of vessel, [place] or graft, Essential hypertension, benign, Other and unspecified hyperlipidemia, and Parkinson disease (HCC). has a past surgical history that includes x-ray & pacemaker insertion (01/21/02); byp autog composit 2 seg veins from 2 locations; coronary artery byp w/vein & artery graft 4 vein; coronary artery byp w/vein & artery graft 1 vein; coronary artery byp w/vein & artery graft 1 vein; coronary artery byp w/vein & artery graft 1 vein; rpr 1st ingun hrna age 3 yrs/> reducible; and rpr 1st ingun hrna age 3 yrs/> reducible (14 YRS). Social History Tobacco Use Smoking status: Never Smoker Smokeless tobacco: Never Used Substance Use Topics Alcohol use: No Drug use: No Family History: family history includes Arthritis in his mother; Parkinson s Disease in his brother, maternal grandfather, and maternal uncle; Tremor in his brother and brother. Objective Vital Signs: BP 141/70 (BP Site: Left Arm, BP Position: Sitting, BP Cuff Size: Regular Adult) Pulse (!) 55 Ht 175.3 cm (5' 9 ) Wt 71.2 kg (157 lb) SpO2 98% BMI 23.18 kg/m General Physical Examination: General: Awake, alert, interactive, no acute distress, good nutritional status, normal development, well-kept General Neurological Examination: Neurological Exam Mental Status Awake and alert. Speech is normal. Language is fluent with no aphasia. Fund of knowledge is appropriate for level of education. Cranial Nerves CN III, IV, : Extraocular movements intact bilaterally. CN V: Facial sensation is normal. CN VII: Full and symmetric facial movement. CN VIII: Hearing is normal. CN XI: Shoulder shrug strength is normal. CN XII: Tongue midline without atrophy or fasciculations. Motor Strength is 5/5 throughout all four extremities. Sensory Light touch is normal in upper and lower extremities. Reflexes Right Left Brachioradialis 2+ 2+ Biceps 2+ 2+ Patellar 2+ 2+ Achilles 1+ 1+ Coordination Right: Yahpsd-ge-uyli normal. Rapid alternating movement normal. Left: Ttujuh-dm-mizr normal. Rapid alternating movement normal. Movement Disorders Scales Performed: MDS-UPDRS Motor subscale condition of exam Medication Off/On/Naiive Time of UPDRS Time of Last Medication Last Medication Taken DBS Right DBS Left MDS-UPDRS Motor subscale scores Speech 2-Mild. Loss of modulation, diction, or volume, with a few words unclear, but the overall sentences easy to follow. Facial Expression 2-Mild. In addition to decreased eye-blink frequency, Masked facies present in the lower face as well, namely fewer movements around the mouth, such as less spontaneous smiling, but lips not parted. Rigidity Neck 0-Normal. No rigidity. Rigidity Right Upper Extremity 2-Mild. Rigidity detected without the activation maneuver, but full range of motion is easily achieved. Rigidity Left Upper Extremity 0-Normal. No rigidity. Rigidity Right Lower Extremity 0-Normal. No rigidity. Rigidity Left Lower Extremity 0-Normal. No rigidity. Finger Taps Right 1-Slight. a) the regular rhythm is broken with one or two interruptions or hesitations of the tapping movement, b) slight slowing, c) the amplitude decrements near the end of the 10 taps. Finger Taps Left 1-Slight. a) the regular rhythm is broken with one or two interruptions or hesitations of the tapping movement, b) slight slowing, c) the amplitude decrements near the end of the 10 taps. Hand Movements Right 1-Slight. a) the regular rhythm is broken with one or two interruptions or hesitations of the movement, b) slight slowing, c) the amplitude decrements near the end of the task. Hand Movements Left 2-Mild. a) 3 to 5 interruptions during the movements, b) mild slowing, c) the amplitude decrements midway in the task. Arm Movements Right 1-Slight. a) the regular rhythm is broken with one or two interruptions or hesitations of the movement, b) slight slowing, c) the amplitude decrements near the end of the sequence. Arm Movements Left 1-Slight. a) the regular rhythm is broken with one or two interruptions or hesitations of the movement, b) slight slowing, c) the amplitude decrements near the end of the sequence. Toe Taps Right 1-Slight. a) the regular rhythm is broken with one or two interruptions or hesitations of the tapping movement, b) slight slowing, c) the amplitude decrements near the end of the ten taps. Toe Taps Left 3-Moderate. a) more than 5 interruptions during the tapping movements or at least one longer arrest (freeze) in ongoing movement, b) moderate slowing, c) the amplitude decrements starting after the first tap. Leg Agility Right 0-Normal. No problems. Leg Agility Left 1-Slight. a) the regular rhythm is broken with one or two interruptions or hesitations of the movement, b) slight slowing, c) the amplitude decrements near the end of the task. Arise From Chair 1-Slight. Arising is slower than normal, or may need more than one attempt, or may need to move forward in the chair to arise. No need to use the arms of the chair. Gait 1-Slight. Independent walking with minor gait impairment. Gait Freezing 1-Slight. Freezing on starting, turning, or walking through doorway with a single halt during any of these events, but then continues smoothly without freezing during straight walking. Posture Stability 0-Normal. No problems: recovers with one or two steps. (deferred) Posture 2-Mild. Definite flexion, scoliosis or leaning to one side, but patient can correct posture to normal posture when asked to do so. Body Bradykinesia 2-Mild. Mild global slowness and poverty of spontaneous movements. Postural Tremor Hand Right 1-Slight. Tremor is present but less than 1cm in amplitude. Postural Tremor Hand Left 1-Slight. Tremor is present but less than 1cm in amplitude. Kinetic Tremor Right 1-Slight. Tremor is present but less than 1cm in amplitude. Kinetic Tremor Left 1-Slight. Tremor is present but less than 1cm in amplitude. Rest Tremor Amplitude Right Upper Extremity 2-Mild. > 1 cm but < 3 cm in maximal amplitude. Rest Tremor Amplitude Left Upper Extremity 1-Slight. < 1 cm in maximal amplitude. Rest Tremor Amplitude Right Lower Extremity 2-Mild. > 1 cm but < 3 cm in maximal amplitude. Rest Tremor Amplitude Right Lower Extremity 0-Normal. No tremor. Rest Tremor Amplitude Lip/Jaw 0-Normal. No tremor. Rest Tremor Constancy 4-Severe. Tremor at rest is present > 75% of the entire examination period. MDS-UPDRS Motor subscale totals Left Total 11 Right Total 12 Midline Total 11 Tremor Total / 10 13 PIGD Total / 3 2 Overall Total 38 % Change Compared to Last Filed Total Assessment and Plan: Assessment Mr. Lund is a right-handed 75 year old male with idiopathic Parkinson's disease. The following are the current problems noted and addressed during this visit: Parkinson disease (hcc) (primary encounter diagnosis) Rbd (rem behavioral disorder) Gait instability Plan 09/20/2021 Visit: dreams - Try melatonin for sleep and to help suppress the dreams. Start with 3 mg at bedtime and increase as needed and tolerated every few days. No more than 9-12 mg per day. Acting out dreams is very common in Parkinson's patients. It is important to protect yourself from injury you could sustain while acting out a dream. 1. Move any breakable items and nightstands away from your bed. 2. If you have any weapons in your home, make sure they are stored safely and securely away from where you sleep. 3. If you have violent episodes, consider sleeping separately from your partner. 4. If you often fall or jump out of your bed, you might try using a sleeping bag on the floor, mat, or a padded bed rail. Lower the bed as much as possible. 5. Keep a clear path to the bathroom, include a dim lit night light. 6. Do not keep rugs in the bedroom/bathroom to avoid a trip hazard. 7. Avoid alcohol use 8. It is important to continue discussion and review safety with your family members, including those in the home, or whom you share a bed with. Parkinson's - increase Sinemet to 2 tabs 4 times a day walking - physical therapy Updated Parkinson's Medication Schedule: 9a 1p 5p 9P Sinemet 25/100 2 2 2 2 Return at or around: 12/21/21 Medical Decision Making: Problems: Moderate: 1+ chronic illnesses with change Risk: Moderate: Drug management Medical Decision Making Level: 4 - Moderate Thank you for allowing me to be part of the clinical care of this patient! I look forward to continued participation in the patient s care with you. Please do not hesitate to call with any questions. Sincerely, Willie Matthews MD documented in this encounter [facility] Diagnosis Parkinson disease (HCC)- Primary Paralysis agitans documented in this encounter [facility] Reason for Referral Specialty Diagnoses / Procedures Referred By Ayaz jimenez Referred To Contact Diagnoses Parkinson disease (HCC) Procedures PROVIDER ORDERED FOLLOW UP OFFICE/OUTPATIENT NEW HIGH MDM 60-74 MINUTES Willie Matthews MD [address] [address] Referral ID Status Reason Start Date Expiration Date Visits Requested Visits Authorized [id number] Authorized PCP Requested Referral 12/21/2021 09/20/2022 1 1 Specialty Diagnoses / Procedures Referred By Ayaz jimenez Referred To Contact [facility] Diagnoses Parkinson disease (HCC) Gait instability Procedures CONSULT TO PHYSICAL THERAPY PHYSICAL THERAPY EVALUATION HIGH COMPLEX 45 MINS Willie Matthews MD [address] [address] [facility] [place] [address] [place] [address] Referral ID Status Reason Start Date Expiration Date Visits Requested Visits Authorized [id number] Pending Review Auto-Generat ed Referral 09/20/2021 09/20/2022 1 1 Specialty Diagnoses / Procedures Referred By Ayaz jimenez Referred To Contact Diagnoses Parkinson disease (HCC) Procedures CONSULT TO [facility] Cherry Bernal APRN.[employer]DER [address] [place] [address] [address] [place], [place] [id number] Referral ID Status Reason Start Date Expiration Date Visits Requested Visits Authorized [id number] Authorized PCP Requested Referral 01/16/2022 04/16/2022 1 1 Summary Purpose Family History No Family History Records Found Advance Directives No Advanced Directives Records Found Additional Source Comments Source Comments (unrecognize d section and content) In the event this informatio n is protected by the Federal Confidentiality of Alcohol and Drug Abuse Patient Records regulations: The Federal rules restrict any use of the information to criminally investigate or prosecute any alcohol or drug abuse patient.[facility] the event this information is protected by the Federal Confidentiality of Alcohol and Drug Abuse Patient Records regulations: The Federal rules restrict any use of the information to criminally investigate or prosecute any alcohol or drug abuse patient.[facility] the event this information is protected by the Federal Confidentiality of Alcohol and Drug Abuse Patient Records regulations: The Federal rules restrict any use of the information to criminally investigate or prosecute any alcohol or drug abuse patient.[facility] the event this information is protected by the Federal Confidentiality of Alcohol and Drug Abuse Patient Records regulations: The Federal rules restrict any use of the information to criminally investigate or prosecute any alcohol or drug abuse patient.[facility] Reason for Visit (unrecogniz ed section and content) Reason Comments Parkinson's Disease Specialty Diagnoses / Procedures Referred By Ayaz jimenez Referred To Contact Diagnoses Parkinson disease (HCC) Procedures PROVIDER ORDERED FOLLOW UP OFFICE/OUTPATIENT [facility] 60-74 MINUTES Willie Matthews MD [address] [place] [id number] Referral ID Status Reason Start Date Expiration Date V isits Requested Visits Authorized [id number] Closed PCP Requested Referral 12/21/2021 09/20/2022 1 1 Reason Onset Date Comments Refill Request 01/22/2022 Reason Comments Symptom Management Care Teams (unrecognized sec tion and content) Brickmason Supervisor Relationship Specialty Start Date End Date Luli Hays PCP - General 08/21/00 Brickmason Supervisor Relationship Specialty Start Date End Date Luli Hays PCP - General 08/21/00 Brickmason Supervisor Relationship Specialty Start Date End Date Luli Hays PCP - General 08/21/00 Cherry Bernal, ANALYTICS SPECIALIST.[employer] [address] [place] [address] Specialty Behavioral Health Case Manager Neurology 02/21/22 Rina Irvin, ANALYTICS SPECIALIST.[employer]DER [address] [place], [place] [id number] Specialty Behavioral Health Case Manager Neurology 05/21/22 (unrecognized sect ion and content) No Status Records Found INFORMATION SOURCE (unrecogn ized section and content) FOR RECORDS PERTAINING TO PATIENTS WHO ARE OR HAVE BEEN ENROLLED IN A CHEMICAL DEPENDENCY/SUBSTANCEABUSE PROGRAM, SOME INFORMATION MAY BE OMITTED. This clinical summary was aggregated from multiple sources. Caution should be exercised in using it in the provision of clinical care. This summary normalizes information from multiple sources, and as a consequence, information in this document may materially change the coding, format and clinical context of patient data. In addition, data may be omitted in some cases. CLINICAL DECISIONS SHOULD BE BASED ON THE PRIMARY CLINICAL RECORDS. [employer] [facility]. provides no warranty or guarantee of the accuracy or completeness of information in this document.
[2023-06-11 11:22] LABS: AST(SGOT) 19 U/L (15-37); Alanine Aminotransfer ALT/SGPT 30 U/L (16-61); Albumin, Serum 3.9 g/dL (3.2-5.0); Alkaline Phosphatase 129 U/L (45-117); Bilirubin, Direct 0.33 mg/dL (0.00-0.30); Cholesterol 137 mg/dL (200); Globulin 3.5 g/dL (2.2-4.2); High Density Lipoprotein 60 mg/dL; Protein, Total 7.4 g/dL (6.4-8.2); Triglycerides 62 mg/dL; Very Low Density Lipoprotein 12 mg/dL (5-40)
== END | disposition home or self-care (01) ==
LOC: LAB 09:45
PROVIDERS: PCP Family Medicine; Referring Provider Nurse Practitioner Gerontology; Visit Provider Nurse Practitioner Gerontology
DX: E78.00 Pure hypercholesterolemia, unspecified (principal)
CPT/HCPCS: 36415; 80061; 80076

== ENCOUNTER → 2023-06-24 | Outpatient (CLI) | payer MEDICARE, SELFPAY ==
--- NOTE | 2023-06-24 12:01 | RAD_ITS ---
STUDY: X-RAY CHEST REASON FOR EXAM: Male, 77 years old. Shortness of breath, marked leg swelling TECHNIQUE: Frontal and lateral views of the chest. COMPARISON: January 06, 2020 FINDINGS: 3-lead AICD on the left unchanged. Mediastinal clips in the mediastinum. Lungs hyperaerated. The lungs are clear and expanded. There is no demonstrated pleural abnormality. Normal size heart. Normal mediastinum and alexa. Normal visualized pulmonary arteries. Normal visualized aortic arch and descending thoracic aorta. Moderate kyphosis. Normal visualized ribs, clavicles, and shoulders. There is no demonstrated abnormality of the visualized soft tissue structures of the upper abdomen. RAD/Chest PA and Lateral IMPRESSION: COPD. Postop changes and pacemaker as above. No acute disease. Electronically Signed: Jaylon Green MD at 0:01 EST ,
--- OUTSIDE RECORDS SUMMARY | 2023-06-24 12:07 | XMS RPT_ITS | CCD ---
Author Name Unknown Address [address] [place] [address] Organization [facility] Care Team Providers Care Conche Loader And Unloader Name Role Phone RAMIRO Santiago, Jena Garcia Unavailable Unavailable Cassandra RUBIO, Karen Garsia Unavailable RACHEL Jorgensen, Karen Garcia Unavailable [phone] Vero RUBIO, Shweta Leavitt Unavailable Unavailable Valarie Duffy Unavailable Unavailable Valarie Duffy Unavailable Unavailable RAMIRO Santiago, Jena Garcia Unavailable Unavailable Ana PEREZ, Aaron Flanagan Unavailable [facility] Nurse Unavailable Unavailable RACHEL Jorgensen, Karen Garcia Unavailable Luli Hays Primary Care Provider Unavailselina Hays, Luli Magallon Primary Care Provider UnavailLuli Javier Primary Care Provider Unavailselina Hays, Luli Magallon Primary Care Provider Unavailabl Analilia DESULPHURIZER OPERATOR.Cherry GONZALEZ Unavailable Albaro DESULPHURIZER OPERATOR.Rina GONZALEZ Unavailable [phone] WILLIE MATTHEWS Attending Unavailable LULI HAYS Primary Care Unavailable LULI HAYS Primary Care Unavailable WILLIE MATTHEWS Attending Unavailable CHERRY BERANL Attending Unavailable LULI HAYS Primary Care Unavailable [...] disease (20 sources) Atherosclerotic heart disease of [place] coronary artery without angina pectoris; Translations: [Angina [...] (8 sources) Long-term drug therapy; Translations: [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) drug therapy] Onset: 11-02-2010 11-02-2010 Past [...] 11-02-2010 Episodic Other aftercare (5 sources) 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) drug therapy; Translations: [Other penitentiary (current) drug therapy] Onset: 1 11-02-2010 Episodic [...] 175.3 cm Cherry Bernal APRN.CNP Work Phone: [facility] 01-16-2022 14:52-0400 Body weight 67.41 kg Cherry Bernal APRN.CNP Work Phone: [facility] 01-16-2022 14:52-0400 SaO2% (BldA) [Mass fraction] 97 % Cherry Bernal APRN.CNP Work Phone: [facility] 09-20-2021 10:03-0400 Body height 175.3 cm Willie Matthews MD Work Phone: [facility] 09-20-2021 10:03-0400 Body weight 71.22 kg Willie Matthews MD Work Phone: [facility] 09-20-2021 10:03-0400 Diastolic blood pressure 70 mm[Hg] Willie Matthews MD Work Phone: [facility] 09-20-2021 10:03-0400 Heart rate 55 /min Willie Matthews MD Work Phone: [facility] 09-20-2021 10:03-0400 SaO2% (BldA) [Mass fraction] 98 % Willie Matthews MD Work Phone: [facility] 09-20-2021 10:03-0400 Systolic blood pressure 141 mm[Hg] Willie Matthews MD Work Phone: [facility] 02-12-2017 11:51-0400 BMI (Body Mass Index) 22.89 kg/m2 [facility] Work Phone: 02-12-2017 11:51-0400 BP Diastolic 60 mm[Hg] Valarie Duffy [facility] Work Phone: 02-12-2017 11:51-0400 BP Systolic 98 mm[Hg] Valarie Duffy [facility] Work Phone: 02-12-2017 11:51-0400 Weight 70.31 kg Valarie Duffy [facility] Work Phone: 01-02-2017 13:22-0400 BMI (Body Mass Index) 22.93 kg/m2 [facility] Work Phone: 01-02-2017 13:22-0400 BP Diastolic 58 mm[Hg] [facility] Work Phone: 01-02-2017 13:22-0400 BP Systolic 98 mm[Hg] [facility] Work Phone: 01-02-2017 13:22-0400 Height 175.26 cm [facility] Work Phone: 01-02-2017 13:22-0400 Pulse (Heart Rate) 56 /min [facility] Work Phone: 01-02-2017 13:22-0400 Respiratory Rate 20 /min [facility] Work Phone: 01-02-2017 13:22-0400 Weight 70.45 kg [facility] Work Phone: 07-04-2016 14:17-0500 BMI [...] Surface Area) 1.9 m2 Jena Santiago RN [facility] Work Phone: 04-10-2013 14:36-0500 Heart rate 453 ms RAMIRO [facility] Work Phone: 08-23-2011 10:46-0400 Height 175.26 cm RAMIRO [facility] Work Phone: Encounters Encounter Date Encounter Type Care Provider Facility Start: 09-19-2022 End: 09-19-2022 [facility] Facility:[facility] [place] Start: 08-27-2022 Telephone encounter Willie sagastume MD Work Phone: [facility] Procedures Date Procedure Procedure Detail Performing Clinician [...] Start: 01-02-2017 End: 01-09-2017 [facility] Jorgensen [facility]-C Work Phone: Start: 01-02-2017 [...] 08-05-2013 Icd device progr eval, mult Aaron tolentino MD Start: 08-05-2013 End: 10-01-2013 Pacer Clinic [...] End: 10-05-2014 *UA - Urinalysis w/o Micro Aarno hendricks MD Start: 04-21-2013 End: 10-05-2014 *UA [...] Aaron Perez MD Start: 09-26-2012 End: 09-26-2012 [facility] Aaron Perez MD Start: 04-05-2012 End: 04-10-2012 [...] Appt 6 months Aaron Perez MD Start: 11-02-2010 Implantation of automatic cardiac defibrillator IMPLANTATION OF DEFIBRILLATOR, HX OF Karen Jorgensen PA-C Start: 11-02-2010 Implantation of automatic cardiac defibrillator IMPLANTATION OF DEFIBRILLATOR, HX OF Jena Santiago RN Plan of Treatment Date Care Activity Detail Author Start: 01-04-2023 Influenza vaccination INFLUENZA (Season Ended) [facility] Start: 05-06-2022 ADVANCE DIRECTIVE DISCUSSION ADVANCE DIRECTIVE DISCUSSION [facility] Start: 05-06-2022 DEPRESSION ASSESSMENT DEPRESSION ASSESSMENT [facility] Start: 01-04-2022 Influenza vaccination [facility] Start: 07-07-2021 COVID-19 VACCINE (4 - Booster for Pfizer series) COVID-19 VACCINE (4 - Booster for Pfizer series) [facility] Start: 05-06-2021 ADVANCE DIRECTIVE DISCUSSION ADVANCE DIRECTIVE DISCUSSION [facility] Start: 05-04-2021 COVID-19 VACCINE (4 - Booster for Pfizer series) COVID-19 VACCINE (4 - Booster for Pfizer series) [facility] Start: 07-10-2017 End: 07-10-2017 Appointment Appointment [facility] Work Phone: Start: 07-03-2017 End: 07-03-2017 Appointment Appointment [facility] Work Phone: Start: 05-08-2017 End: 05-08-2017 Appointment Appointment [facility] Work Phone: Start: 02-12-2017 End: 02-12-2017 Appointment Appointment [facility] Work Phone: Start: 02-12-2017 End: 02-12-2017 Follow Up Appt Other Follow Up Appt Other [facility] Work Phone: Start: 01-23-2017 End: 01-23-2017 Appointment Appointment [facility] Work Phone: Start: 01-23-2017 End: 02-01-2017 Follow Up Appt 3 months Follow Up Appt 3 months [facility] Work Phone: Start: 01-23-2017 End: 02-01-2017 [facility]er [facility] Work Phone: Start: 01-23-2017 End: 01-23-2017 Follow Up Appt 3 months Follow Up Appt 3 months [facility] Work Phone: Start: 01-23-2017 End: 01-23-2017 [facility] Work Phone: Start: 01-02-2017 End: 01-02-2017 *CBC with Differential *CBC with Differential [facility] Work Phone: Start: 01-02-2017 End: 01-02-2017 Follow Up Appt 6 weeks Follow Up Appt 6 weeks [facility] Work Phone: Start: 01-02-2017 End: 01-02-2017 MMM MMM [facility] Work Phone: Start: 01-02-2017 End: 01-02-2017 Nuclear stress test -Lexiscan Nuclear stress test -Lexiscan [facility] Work Phone: Start: 01-02-2017 End: 01-02-2017 Thyroid stimulating hormone (TSH) *TSH [facility] Work Phone: Start: 01-02-2017 End: 01-02-2017 Thyroxine (T4) *T4 (Total) [facility] Work Phone: Start: 01-02-2017 End: 01-02-2017 Appointment Appointment [facility] Work Phone: Start: 01-02-2017 End: 01-02-2017 *CBC with Differential *CBC with Differential [facility] Work Phone: Start: 01-02-2017 End: 01-02-2017 Follow Up Appt 6 weeks Follow Up Appt 6 weeks [facility] Work Phone: Start: 01-02-2017 End: 01-02-2017 MMM MMM [facility] Work Phone: Start: 01-02-2017 End: 01-02-2017 Nuclear stress test -Lexiscan Nuclear stress test -Lexiscan [facility] Work Phone: Start: 01-02-2017 End: 01-02-2017 Thyroid stimulating hormone (TSH) *TSH [facility] Work Phone: Start: 01-02-2017 End: 01-02-2017 Thyroxine (T4) *T4 (Total) [facility] Work Phone: Start: 11-15-2016 End: 11-16-2016 *BMP *BMP [facility] Work Phone: Start: 11-15-2016 End: 11-16-2016 *BMP *BMP [facility] Work Phone: Start: 10-17-2016 End: 10-17-2016 Appointment Appointment [facility] Work Phone: Start: 10-17-2016 End: 12-25-2016 Follow Up Appt 3 months Follow Up Appt 3 months [facility] Work Phone: Start: 10-17-2016 End: 12-25-2016 Pacer Clinic [facility] Work Phone: Start: 10-17-2016 End: 12-25-2016 Follow Up Appt 3 months Follow Up Appt 3 months [facility] Work Phone: Start: 10-17-2016 End: 12-25-2016 Pacer Clinic [facility] Work Phone: Start: 07-04-2016 End: 07-04-2016 Device Interrogation Device Interrogation [facility] Work Phone: Start: 07-04-2016 [...] 07-04-2016 End: 07-04-2016 Device Interrogation Device Interrogation [facility] Work Phone: Start: 07-04-2016 End: 12-25-2016 Follow Up Appt 3 months Follow Up Appt 3 months [facility] Work Phone: Start: 07-04-2016 End: 07-04-2016 Follow Up Appt 6 months Follow Up Appt 6 months [facility] Work Phone: Start: 07-04-2016 End: 07-04-2016 MMM MMM [facility] Work Phone: Start: 07-04-2016 End: 12-25-2016 Pacer Clinic [facility] Work Phone: Start: 03-19-2016 End: [...] 3 months Follow Up Appt 3 months [facility] Work Phone: Start: 12-12-2015 End: 12-25-2016 Pacer Clinic [facility] Clinic [facility] Work Phone: Start: 12-12-2015 End: 12-25-2016 Follow Up Appt 3 months Follow Up Appt 3 months [facility] Work Phone: Start: 12-12-2015 End: 12-25-2016 Pacer Clinic Pacer Clinic [facility] Work Phone: Start: 11-30-2015 End: 11-30-2015 Ecg routine ecg w/least 12 lds w/i&r EKG (In office) [facility] Work Phone: Start: 11-30-2015 End: 11-30-2015 Follow Up Appt 6 months Follow Up Appt 6 months [facility] Work Phone: Start: 11-30-2015 End: 11-30-2015 PFM PFM [facility] Work Phone: Start: 11-30-2015 End: 11-30-2015 Electrocardiogram, complete EKG (In office) [facility] Work Phone: Start: 11-30-2015 End: 11-30-2015 Follow Up Appt 6 months Follow Up Appt 6 months [facility] Work Phone: Start: 11-30-2015 End: 11-30-2015 PFM PFM [facility] Work Phone: Start: 10-21-2015 End: 12-25-2016 *Hepatic Function Panel *Hepatic Function Panel [facility] Work Phone: Start: 10-21-2015 End: 12-25-2016 Lipid panel [AGGREGATE] *Lipid Profile CC PCP [facility] Work Phone: Start: 10-21-2015 End: 12-25-2016 *Hepatic Function Panel *Hepatic Function Panel [facility] Work Phone: Start: 10-21-2015 End: 12-25-2016 Lipid panel [AGGREGATE] *Lipid Profile CC PCP [facility] Work Phone: Start: 09-12-2015 End: 11-23-2015 Follow Up Appt 3 months Follow Up Appt 3 months [facility] Work Phone: Start: 09-12-2015 End: 11-23-2015 Pacer Clinic Pac[facility] Clinic [facility] Work Phone: Start: 09-12-2015 End: 11-23-2015 Follow Up Appt 3 months Follow Up Appt 3 months [facility] Work Phone: Start: 09-12-2015 End: 11-23-2015 Pacer Clinic [facility] Work Phone: Start: 06-13-2015 End: 11-23-2015 Follow Up Appt 3 months Follow Up Appt 3 months [facility] Work Phone: Start: 06-13-2015 End: 11-23-2015 Pacer Clinic [facility] Clinic [facility] Work Phone: Start: 06-13-2015 End: 11-23-2015 Follow Up Appt 3 months Follow Up Appt 3 months [facility] Work Phone: Start: 06-13-2015 End: 11-23-2015 Pacer Clinic [facility] Work Phone: Start: 05-19-2015 End: 05-19-2015 Follow Up Appt 6 months Follow Up Appt 6 months [facility] Work Phone: Start: 05-19-2015 End: 05-19-2015 MMM MMM [facility] Work Phone: Start: 05-19-2015 End: 05-19-2015 Follow Up Appt 6 months Follow Up Appt 6 months [facility] Work Phone: Start: 05-19-2015 End: 05-19-2015 MMM MMM [facility] Work Phone: Start: 04-18-2015 End: 04-21-2015 *Hepatic Function Panel *Hepatic Function Panel [facility] Work Phone: Start: 04-18-2015 End: 04-21-2015 Lipid panel [AGGREGATE] *Lipid Profile CC PCP [facility] Work Phone: Start: 04-18-2015 End: 04-21-2015 *Hepatic Function Panel *Hepatic Function Panel [facility] Work Phone: Start: 04-18-2015 End: 04-21-2015 Lipid panel [AGGREGATE] *Lipid Profile CC PCP [facility] Work Phone: Start: 03-07-2015 End: 11-23-2015 Follow Up Appt 3 months Follow Up Appt 3 months [facility] Work Phone: Start: 03-07-2015 End: 11-23-2015 Pacer Clinic Pacer Clinic [facility] Work Phone: Start: 03-07-2015 End: 11-23-2015 Follow Up Appt 3 months Follow Up Appt 3 months [facility] Work Phone: Start: 03-07-2015 End: 11-23-2015 Pacer Clinic Pacer Clinic [facility] Work Phone: Start: 11-19-2014 End: 11-23-2015 Follow Up Appt 3 months Follow Up Appt 3 months [facility] Work Phone: Start: 11-19-2014 End: 11-23-2015 Pacer Clinic Pacer Clinic [facility] Work Phone: Start: 11-19-2014 End: 11-23-2015 Follow Up Appt 3 months Follow Up Appt 3 months [facility] Work Phone: Start: 11-19-2014 End: 11-23-2015 Pacer Clinic Pacer Clinic [facility] Work Phone: Start: 10-19-2014 End: 10-25-2014 CBC W Auto Differential panel - Blood *CBC without Diff [facility] Work Phone: Start: 10-19-2014 End: [...] Phone: Start: 10-19-2014 End: 10-19-2014 PFM PFM [facility] Work Phone: Start: 10-19-2014 End: 10-25-2014 Thyroid stimulating hormone (TSH) *TSH [facility] Work Phone: Start: 10-19-2014 End: 10-25-2014 Thyroxine (T4) *T4 (Total) [facility] Work Phone: Start: 10-19-2014 End: 10-25-2014 CBC W Auto Differential panel - Blood *CBC without Diff [facility] Work Phone: Start: 10-19-2014 End: 10-19-2014 Electrocardiogram, complete EKG (In office) [facility] Work Phone: Start: 10-19-2014 End: 10-19-2014 Follow Up Appt 6 months Follow Up Appt 6 months [facility] Work Phone: Start: 10-19-2014 End: 10-19-2014 Nuclear stress test -Lexiscan Nuclear stress test -Lexiscan [facility] Work Phone: Start: 10-19-2014 End: 10-19-2014 PFM PFM [facility] Work Phone: Start: 10-19-2014 End: 10-25-2014 Thyroid stimulating hormone (TSH) *TSH [facility] Work Phone: Start: 10-19-2014 End: 10-25-2014 Thyroxine (T4) *T4 (Total) [facility] Work Phone: Start: 08-16-2014 End: 10-05-2014 Follow Up Appt 3 months Follow Up Appt 3 months [facility] Work Phone: Start: 08-16-2014 End: 10-05-2014 Pacer Clinic Pacer Clinic [facility] Work Phone: Start: 08-16-2014 End: 10-05-2014 Follow Up Appt 3 months Follow Up Appt 3 months [facility] Work Phone: Start: 08-16-2014 End: 10-05-2014 Pacer Clinic Pacer Clinic [facility] Work Phone: Start: 05-17-2014 End: 10-05-2014 Follow Up Appt 3 months Follow Up Appt 3 months [facility] Work Phone: Start: 05-17-2014 End: 10-05-2014 Pacer Clinic Pacer Clinic [facility] Work Phone: Start: 05-17-2014 End: [...] 6 months Follow Up Appt 6 months [facility] Work Phone: Start: 04-19-2014 End: 10-15-2014 Lipid panel [AGGREGATE] *Lipid Profile CC PCP [facility] Work Phone: Start: 04-19-2014 End: 04-19-2014 MMM MMM [facility] Work Phone: Start: 04-19-2014 End: 10-15-2014 *Hepatic Function Panel *Hepatic Function Panel [facility] Work Phone: Start: 04-19-2014 End: 04-19-2014 Follow Up Appt 6 months Follow Up Appt 6 months [facility] Work Phone: Start: 04-19-2014 End: 10-15-2014 Lipid panel [AGGREGATE] *Lipid Profile CC PCP [facility] Work Phone: Start: 04-19-2014 End: 04-19-2014 MMM MMM [facility] Work Phone: Start: 04-05-2014 End: 10-05-2014 *Hepatic Function Panel *Hepatic Function Panel [facility] Work Phone: Start: 04-05-2014 End: 10-05-2014 Lipid panel [AGGREGATE] *Lipid Profile CC PCP [facility] Work Phone: Start: 04-05-2014 End: 10-05-2014 *Hepatic Function Panel *Hepatic Function Panel [facility] Work Phone: Start: 04-05-2014 End: 10-05-2014 Lipid panel [AGGREGATE] *Lipid Profile CC PCP [facility] Work Phone: Start: 02-11-2014 End: 10-05-2014 Follow Up Appt 3 months Follow Up Appt 3 months [facility] Work Phone: Start: 02-11-2014 End: 10-05-2014 Pacer Clinic Pacer Clinic [facility] Work Phone: Start: 02-11-2014 End: 10-05-2014 Follow Up Appt 3 months Follow Up Appt 3 months [facility] Work Phone: Start: 02-11-2014 End: 10-05-2014 Pacer Clinic Pacer Clinic [facility] Work Phone: Start: 11-11-2013 End: 10-05-2014 Follow Up Appt 3 months Follow Up Appt 3 months [facility] Work Phone: Start: 11-11-2013 End: 10-05-2014 Pacer Clinic Pacer Clinic [facility] Work Phone: Start: 11-11-2013 End: 10-05-2014 Follow Up Appt 3 months Follow Up Appt 3 months [facility] Work Phone: Start: 11-11-2013 End: 10-05-2014 Pacer Clinic Pacer Clinic [facility] Work Phone: Start: 10-12-2013 End: 10-12-2013 *Hepatic Function Panel *Hepatic Function Panel [facility] Work Phone: Start: 10-12-2013 End: 10-12-2013 Follow Up Appt 6 months Follow Up Appt 6 months [facility] Work Phone: Start: 10-12-2013 End: 10-12-2013 Lipid panel [AGGREGATE] *Lipid Profile CC PCP [facility] Work Phone: Start: 10-12-2013 End: 10-12-2013 PFM PFM [facility] Work Phone: Start: 10-12-2013 End: 10-12-2013 *Hepatic Function Panel *Hepatic Function Panel [facility] Work Phone: Start: 10-12-2013 End: 10-12-2013 Follow Up Appt 6 months Follow Up Appt 6 months [facility] Work Phone: Start: 10-12-2013 End: 10-12-2013 Lipid panel [AGGREGATE] *Lipid Profile CC PCP [facility] Work Phone: Start: 10-12-2013 End: 10-12-2013 PFM PFM [facility] Work Phone: Start: 10-04-2013 End: 10-13-2013 *Hepatic Function Panel *Hepatic Function Panel [facility] Work Phone: Start: 10-04-2013 End: 10-13-2013 Lipid panel [AGGREGATE] *Lipid Profile CC PCP [facility] Work Phone: Start: 10-04-2013 End: 10-13-2013 *Hepatic Function Panel *Hepatic Function Panel [facility] Work Phone: Start: 10-04-2013 End: 10-13-2013 Lipid panel [AGGREGATE] *Lipid Profile CC PCP [facility] Work Phone: Start: 08-05-2013 End: 10-01-2013 Follow Up Appt 2 months Follow Up Appt 2 months [facility] Work Phone: Start: 08-05-2013 End: 10-01-2013 Pacer Clinic Pacer Clinic [facility] Work Phone: Start: 08-05-2013 End: 10-01-2013 Follow Up Appt 2 months Follow Up Appt 2 months [facility] Work Phone: Start: 08-05-2013 End: 10-01-2013 Pacer Clinic Pacer Clinic [facility] Work Phone: Start: 05-04-2013 End: 10-01-2013 Follow Up Appt 3 months Follow Up Appt 3 months [facility] Work Phone: Start: 05-04-2013 End: 10-01-2013 Pacer Clinic Pacer Clinic [facility] Work Phone: Start: 05-04-2013 End: 10-01-2013 Follow Up Appt 3 months Follow Up Appt 3 months [facility] Work Phone: Start: 05-04-2013 End: 10-01-2013 Pacer Clinic Pacer Clinic [facility] Work Phone: Start: 04-21-2013 End: 10-05-2014 *UA - Urinalysis w/o Micro *UA - Urinalysis w/o Micro [facility] Work Phone: Start: 04-21-2013 End: 10-05-2014 *UA - Urinalysis w/o Micro *UA - Urinalysis w/o Micro [facility] Work Phone: Start: 04-10-2013 End: [...] Differential panel - Blood *CBC without Diff [facility] Work Phone: Start: 04-10-2013 End: [...] 6 months Follow Up Appt 6 months [facility] Work Phone: Start: 04-10-2013 End: 10-05-2014 INR Coag RelTime (PPP) *PT/INR USINE IO [facility] Work Phone: Start: 04-10-2013 End: 10-05-2014 Lipid panel [AGGREGATE] *Lipid Profile CC PCP [facility] Work Phone: Start: 04-10-2013 End: 04-10-2013 MMM MMM [facility] Work Phone: Start: 04-10-2013 End: 04-10-2013 Pacemaker Generator Change Pacemaker Generator Change [facility] Work Phone: Start: 04-10-2013 End: 10-01-2013 Pacer Clinic Pacer Clinic [facility] Work Phone: Start: 04-10-2013 End: 10-05-2014 *BMP *BMP [facility] Work Phone: Start: 04-10-2013 End: 10-05-2014 *Hepatic Function Panel *Hepatic Function Panel [facility] Work Phone: Start: 04-10-2013 End: 10-05-2014 *UA - Urinalysis w/o Micro *UA - Urinalysis w/o Micro [facility] Work Phone: Start: 04-10-2013 End: 10-05-2014 CBC W Auto Differential panel - Blood *CBC without Diff [facility] Work Phone: Start: 04-10-2013 End: 10-05-2014 Chest x-ray X-Ray, Chest, PA & Lateral [facility] Work Phone: Start: 04-10-2013 End: 10-05-2014 Coagulation factor induced.INR assay in platelet poor plasma *PT/INR [facility] Work Phone: Start: 04-10-2013 End: 04-20-2013 Electrocardiogram, complete EKG (In office) [facility] Work Phone: Start: 04-10-2013 End: 10-01-2013 Follow Up Appt 3 months Follow Up Appt 3 months [facility] Work Phone: Start: 04-10-2013 End: 04-10-2013 Follow Up Appt 6 months Follow Up Appt 6 months [facility] Work Phone: Start: 04-10-2013 End: 10-05-2014 Lipid panel [AGGREGATE] *Lipid Profile CC PCP [facility] Work Phone: Start: 04-10-2013 End: 04-10-2013 MMM MMM [facility] Work Phone: Start: 04-10-2013 End: 04-10-2013 Pacemaker Generator Change Pacemaker Generator Change [facility] Work Phone: Start: 04-10-2013 End: 10-01-2013 Pacer Clinic Pacer Clinic [facility] Work Phone: Start: 12-31-2012 End: 10-01-2013 Follow Up Appt 3 months Follow Up Appt 3 months [facility] Work Phone: Start: 12-31-2012 End: 10-01-2013 Pacer Clinic Pacer Clinic [facility] Work Phone: Start: 12-31-2012 End: 10-01-2013 Follow Up Appt 3 months Follow Up Appt 3 months [facility] Work Phone: Start: 12-31-2012 End: 10-01-2013 Pacer Clinic Pacer Clinic [facility] Work Phone: Start: 10-04-2012 End: 10-05-2014 *Hepatic Function Panel *Hepatic Function Panel [facility] Work Phone: Start: 10-04-2012 End: 10-05-2014 Lipid panel [AGGREGATE] *Lipid Profile [facility] Work Phone: Start: 10-04-2012 End: 10-05-2014 *Hepatic Function Panel *Hepatic Function Panel [facility] Work Phone: Start: 10-04-2012 End: 10-05-2014 Lipid panel [AGGREGATE] *Lipid Profile [facility] Work Phone: Start: 09-26-2012 End: 09-26-2012 Echocardiography Echocardiogram (limited) [facility] Work Phone: Start: 09-26-2012 End: 09-26-2012 Follow Up Appt 3 months Follow Up Appt 3 months [facility] Work Phone: Start: 09-26-2012 End: 09-26-2012 Follow Up Appt 6 months Follow Up Appt 6 months [facility] Work Phone: Start: 09-26-2012 End: 09-26-2012 Pacer Clinic Pacer Clinic [facility] Work Phone: Start: 09-26-2012 End: 09-26-2012 PFM PFM [facility] Work Phone: Start: 09-26-2012 End: 09-26-2012 Echocardiography Echocardiogram (limited) [facility] Work Phone: Start: 09-26-2012 [...] Phone: Start: 09-26-2012 End: 09-26-2012 PFM PFM [facility] Work Phone: Start: 04-05-2012 End: 11-08-2011 *Hepatic Function Panel *Hepatic Function Panel [facility] Work Phone: Start: 04-05-2012 End: 11-08-2011 Lipid panel [AGGREGATE] *Lipid Profile [facility] Work Phone: Start: 04-05-2012 End: 11-08-2011 *Hepatic Function Panel *Hepatic Function Panel [facility] Work Phone: Start: 04-05-2012 End: 11-08-2011 Lipid panel [AGGREGATE] *Lipid Profile [facility] Work Phone: Start: 02-25-2012 End: 10-01-2013 Follow Up Appt 6 months Follow Up Appt 6 months [facility] Work Phone: Start: 02-25-2012 End: 02-25-2012 Nuclear stress test -adenosine Nuclear stress test -adenosine [facility] Work Phone: Start: 02-25-2012 End: 10-01-2013 Follow Up Appt 6 months Follow Up Appt 6 months [facility] Work Phone: Start: 02-25-2012 End: 02-25-2012 Nuclear stress test -adenosine Nuclear stress test -adenosine [facility] [facility] Work Phone: Start: 10-05-2011 End: 11-08-2011 *Hepatic Function Panel *Hepatic Function Panel [facility] Work Phone: Start: 10-05-2011 End: 11-08-2011 Lipid panel [AGGREGATE] *Lipid Profile [facility] Work Phone: Start: 10-05-2011 End: 11-08-2011 *Hepatic Function Panel *Hepatic Function Panel [facility] Work Phone: Start: 10-05-2011 End: 11-08-2011 Lipid panel [AGGREGATE] *Lipid Profile [facility] Work Phone: Start: 08-23-2011 End: 08-23-2011 Echocardiography Echocardiogram (complete) [facility] Work Phone: Start: 08-23-2011 End: 10-01-2013 Follow Up Appt 6 months Follow Up Appt 6 months [facility] Work Phone: Start: 08-23-2011 End: 08-23-2011 Echocardiography Echocardiogram (complete) [facility] Work Phone: Start: 08-23-2011 End: 10-01-2013 Follow Up Appt 6 months Follow Up Appt 6 months [facility] Work Phone: Start: 09-24-2008 PNEUMOCOCCAL: 65+ (1 - PCV) PNEUMOCOCCAL: 65+ (1 - PCV) [facility] Start: 09-24-2008 PNEUMOVAX AGE 65 AND OVER WITH 5YR LOOKBACK (#1) PNEUMOVAX AGE 65 AND OVER WITH 5YR LOOKBACK (#1) [facility] Start: 09-24-1993 SHINGRIX VACCINE (1 of 2) SHINGRIX VACCINE (1 of 2) [facility] Start: 09-24-1988 DIABETES SCREEN DIABETES SCREEN [facility] Start: 09-24-1962 Urine microalbumin profile DTAP,TDAP,TD (1 - Tdap) [facility] Start: 09-24-1961 HEPATITIS C SCREENING HEPATITIS C SCREENING [facility] Start: 1955 Adult depression screening assessment DEPRESSION SCREENING [facility] Patient Education HYPERLIPIDEMIA , HYPERTENSION [facility] Work Phone: [facility] Payers Date Payer Category Payer Medicare HUMANA MEDICARE HUMANA MEDICARE PPO [id number] 2019-Present [phone] [address] [place] [address] PPO [id number] 2019 Medicare HUMANA MEDICARE HUMANA MEDICARE PPO [id number] 2019-Present [phone] [address] [place] [address] PPO [id number] 2019 Medicare [id number] Social History Date Type Detail Facility Start: 01-16-2022 Tobacco smoking stat us AZIS Never smoked tobacco [facility] Start: 09-20-2021 End: 01-16-2022 Alcohol intake Current non-drinker of alcohol (finding) [facility] Start: 1945 Sex Assigned At Not on file C [facility] Start: 09-10-2021 End: 01-16-2022 Exposure to SARS-CoV-2 (event) Not sure [facility] Start: 01-16-2022 Tobacco use and exposure Smoke less tobacco non-user [facility] Clinical Notes 09-20-2021 to 09-19-2022 Telephone Encounter - Radha Monge RN - 08/28/2022 12:20 PM EDTTelephone Encounter - Tita Yee - 08/27/2022 3:23 PM EDTTelephone Encounter - Jerica Recinos - 01/22/2022 11:32 AM EDT Note Date & Type Note Facility 09-19-2022 Note HNO ID: [id number] Author: Willie Matthews MD Service: ? Author [...] male patient. Sean (more content not included)... [facility] 08-28-2022 Miscellaneous Notes Attempted to return [...] by Name and Date of . ( Aid Lund, 1945). Yes Reason for Call : [...] for him now. Number to return call [phone] Okay to leave a message ? Last office visit 01/16/22 with Cherry No visit scheduled. Thank you calling [facility] [place]. You will receive a return call within 48 hours ( or 2 business days if close to the weekend). If you feel that this is an urgent issue and needs immediate attention, it is recommended that you contact your primary care provider office or proceed to your nearest Urgent Care Center of Emergency Room ED for evaluation/treatment. documented in this encounter [facility] 01-22-2022 Miscellaneous Notes Request from patient requesting refill. RX prescribed by previous neurologist. Please E-Scribe to Kan[facility] (Shon). Last OV: 01/16/22 with SS Future OV: 07/16/22 with KA Requested Prescriptions Pending Prescriptions Disp Refills sertraline (ZOLOFT) 100 mg tablet 90 tablet 3 Sig: Take 1 tablet by mouth once daily. Jerica Mclaughlin documented in this encounter [facility] 01-16-2022 Note HNO ID: [id number] Author: Cherry Bernal APRN.MECHANICAL OXIDIZER Service: ? Author Type: Nurse Practitioner Type: [...] to him later. Loses train of thought. [place] Cognitive Assessment (MoCA): 15 (01/16/2022 3:30 PM) [...] of exam Medicatio (more content not included)... [facility] 01-16-2022 Instructions Cherry Bernal APRN.MECHANICAL OXIDIZER - 01/16/2022 4:03 PM EDT For your [...] potential for hallucinations. documented in this encounter [facility] 01-16-2022 History of Present illness Narrative CNR-MOVEMENT [...] not have Parkinson's disease. I did a Bremer today, and he scored a 15. Due [...] potential for hallucinations. Level of service : [id number] (40-54 min). Time spent 45 min on the day of service, which included preparing to see the patient, ymzb-wu-ojgb patient care, completing clinical documentation, obtaining and/or [...] call with any questions. Sincerely, Cherry Bernal APRN.MECHANICAL OXIDIZER documented in this encounter [facility] 09-20-2021 Note HNO ID: [id number] Author: Willie Matthews MD Service: ? Author [...] one(1) tablet daily. (more content not included)... [facility] 09-20-2021 Instructions Willie Matthews MD - [...] or you can send a message through [employer]. You can also now schedule and select appointments through [employer]. Willie Matthews MD Constipation and Other Gastrointestinal [...] future constipation. Treatments fall into two categories: nyul-xeb-bcqtxsm and prescription therapies. Remember: consult with your [...] day and your own convenience and preference. Eqab-enz-Hgizqyh Products Krkw-egf-jjrhyks treatments for constipation can be purchased at [...] It also comes as a capsule ([place] Smooth Move ). ving with PD Constipation [...] easier to pass. These can be used penitentiary but should not be used in combination [...] after other remedies have failed. Among the ufjs-guh-dtmfnxd laxatives, they are most likely to cause [...] psyllium (Perdiem ). Common Side Effects of Slrs-lbx-Lncrjpg Products for Constipation Emollient (Stool Softeners) Skin [...] any side effects listed. Prescription Products When gjxa-ycp-ivoptht remedies fail, your healthcare provider may recommend [...] Stimulant X Bisacodyl (Dulcolax ) Stimulant X [place] Oil Stimulant X Cellulose (Unifiber ) Bulk [...] Docusate (Senokot ) Stimulant X Adapted from: [facility] Website, accessed August 30, 2015, www.[employer]/health/druginfo rmation/ [id number] Special Precautions For your safety, consult your [...] For more information and resources see [email or web address].parkinson.org/. [facility] is a Center of Excellence for the Parkinson s Foundation. documented in this encounter [facility] 09-20-2021 History of Present illness Narrative CNR-MOVEMENT [...] now. Diagnosed around that time. Neurologist left [place]. Would like walking to be better. Doesn't [...] Coronary atherosclerosis of unspecified type of vessel, [place] or graft, Essential hypertension, benign, Other and [...] 2+ 2+ Achilles 1+ 1+ Coordination Right: Rfcwgc-vj-oqwl normal. Rapid alternating movement normal. Left: Tjfoua-ly-fkrc normal. Rapid alternating movement normal. Movement Disorders [...] Willie Matthews MD documented in this encounter [facility] Diagnosis Parkinson disease (HCC)- Primary Paralysis agitans documented in this encounter [facility] Reason for Referral Specialty Diagnoses / Procedures Referred By Ayaz jimenez Referred To Contact Diagnoses Parkinson disease (HCC) Procedures PROVIDER ORDERED FOLLOW UP OFFICE/OUTPATIENT NEW HIGH MDM 60-74 MINUTES Willie Matthews MD [address] [address] Referral ID Status Reason Start Date Expiration Date Visits Requested Visits Authorized [id number] Authorized PCP Requested Referral 12/21/2021 09/20/2022 1 1 Specialty Diagnoses / Procedures Referred By Ayaz jimenez Referred To Contact [facility] Diagnoses Parkinson disease (HCC) Gait instability Procedures CONSULT TO PHYSICAL THERAPY PHYSICAL THERAPY EVALUATION HIGH COMPLEX 45 MINS Willie Matthews MD [address] [address] [facility] [place] [address] [place] [address] Referral ID Status Reason Start Date Expiration Date Visits Requested Visits Authorized [id number] Pending Review Auto-Generat ed Referral 09/20/2021 09/20/2022 1 1 Specialty Diagnoses / Procedures Referred By Ayaz jimenez Referred To Contact Diagnoses Parkinson disease (HCC) Procedures CONSULT TO [facility] Cherry Bernal APRN.MECHANICAL OXIDIZER [address] [place] [address] [address] [place], [place] [id number] Referral ID Status Reason Start Date Expiration Date Visits Requested Visits Authorized [id number] Authorized PCP Requested Referral 01/16/2022 04/16/2022 1 [...] or prosecute any alcohol or drug abuse patient.[facility] the event this information is protected by the Federal Confidentiality of Alcohol and Drug Abuse Patient Records regulations: The Federal rules restrict any use of the information to criminally investigate or prosecute any alcohol or drug abuse patient.[facility] the event this information is protected by the Federal Confidentiality of Alcohol and Drug Abuse Patient Records regulations: The Federal rules restrict any use of the information to criminally investigate or prosecute any alcohol or drug abuse patient.[facility] the event this information is protected by the Federal Confidentiality of Alcohol and Drug Abuse Patient Records regulations: The Federal rules restrict any use of the information to criminally investigate or prosecute any alcohol or drug abuse patient.[facility] Reason for Visit (unrecogniz ed section and content) Reason Comments Parkinson's Disease Specialty Diagnoses / Procedures Referred By Ayaz jimenez Referred To Contact Diagnoses Parkinson disease (HCC) Procedures PROVIDER ORDERED FOLLOW UP OFFICE/OUTPATIENT [facility] 60-74 MINUTES Willie Matthews MD [address] [place] [id number] Referral ID Status Reason Start Date Expiration Date V isits Requested Visits Authorized [id number] Closed PCP Requested Referral 12/21/2021 09/20/2022 1 1 Reason Onset Date Comments Refill Request 01/22/2022 Reason Comments Symptom Management Care Teams (unrecognized sec tion and content) [employer] Relationship Specialty Start Date End Date Luli Hays PCP - General 08/21/00 [employer]loader Relationship Specialty Start Date End Date Luli Hays PCP - General 08/21/00 [employer]er [employer]loader Relationship Specialty Start Date End Date Luli Hays PCP - General 08/21/00 Cherry Bernal, DESULPHURIZER OPERATOR.MECHANICAL OXIDIZER [address] [place] [address] Specialty Pricing Consultant Neurology 02/21/22 Rina Irvin, DESULPHURIZER OPERATOR.MECHANICAL OXIDIZER [address] [place], [place] [id number] Specialty Pricing Consultant Neurology 05/21/22 (unrecognized sect ion and content) [...] BE BASED ON THE PRIMARY CLINICAL RECORDS. [employer] [facility]. provides no warranty or guarantee of the accuracy or completeness of information in this document.
[2023-06-24 12:33] LABS: ALB/GLOB Ratio 1.1 RATIO (0.9-2.4); AST(SGOT) 18 U/L (15-37); Alanine Aminotransfer ALT/SGPT 10 U/L (16-61); Albumin, Serum 3.5 g/dL (3.2-5.0); Alkaline Phosphatase 117 U/L (45-117); Anion Gap 2 (5-15); BUN 17 mg/dL (7-18); Calcium,Total 9.3 mg/dL (8.5-10.1); Chloride 112 mmol/L (98-107); Creatinine, Serum 0.94 mg/dL (0.70-1.30); EST Glomerular Filtration Rate 82 mL/min (>60); Est Glom Filt Rate - Afr Amer 99 mL/min (>60); Globulin 3.3 g/dL (2.2-4.2); Glucose 101 mg/dL (74-106); Potassium 4.4 mmol/L (3.5-5.1); Protein, Total 6.8 g/dL (6.4-8.2); Sodium Level 141 mmol/L (136-145)
[2023-06-24 12:34] LABS: BNP,B-Type NATRIURETIC PEPTIDE 195.3 pg/mL (0-100)
[2023-06-24 12:35] LABS: Absolute Lymphocyte Count 1.13 X10^3/uL (0.83-4.51); Absolute Neutrophil Count 4.1 X10^3/uL (2.0-7.7); Basophil# 0.02 X10^3/uL; Basophil% 0.3 % (0-1); Eosinophil# 0.13 X10^3/uL; Eosinophils% 2.2 % (0-5); Hematocrit 38.4 % (40-54); Hemoglobin 12.5 g/dL (13.0-16.5); Lymphocyte # 1.13 X10^3/ul (0.83-4.51); Lymphocyte % 18.9 % (19-41); Mean Corp Hgb Conc 32.6 g/dL (32-36); Mean Corpuscular Volume 98.2 fL (80-94); Mean Platelet Vol. 9.4 fl (6.2-12.0); Monocyte# 0.58 X10^3/uL; Monocyte% 9.7 % (0-10); NRBC Flagged by Analyzer 0 % (0-5); Neutrophil # 4.09 X10^3/uL (2.7-7.7); Neutrophil % 68.2 % (47-70); Platelet Count 213 K/mm3 (150-450); RBC Distribution Width CV 13.7 % (11.6-14.6); RBC Distribution Width SD 48.9 fl (35.1-43.9); Red Blood Count 3.91 M/mm3 (4.6-6.2)
== END | disposition home or self-care (01) ==
LOC: LAB 11:45
PROVIDERS: PCP Family Medicine; Referring Provider Nurse Practitioner Gerontology; Visit Provider Nurse Practitioner Gerontology
DX: I50.22 Chronic systolic (congestive) heart failure (principal); I25.5 Ischemic cardiomyopathy; I25.10 Atherosclerotic heart disease of native coronary artery without angina pectoris; R60.0 Localized edema; R06.02 Shortness of breath
CPT/HCPCS: 71046; 80053; 83880; 85025

== ENCOUNTER → 2023-07-15 | Outpatient (CLI) | payer MEDICARE, SELFPAY ==
[2023-07-15 15:38] LABS: Anion Gap 4 (5-15); BUN 31 mg/dL (7-18); BUN/Creat Ratio 31.4 RATIO (10-20); Calcium,Total 9.3 mg/dL (8.5-10.1); Chloride 108 mmol/L (98-107); Creatinine, Serum 0.99 mg/dL (0.70-1.30); EST Glomerular Filtration Rate 78 mL/min (>60); Est Glom Filt Rate - Afr Amer 94 mL/min (>60); Glucose 114 mg/dL (74-106); Potassium 4.2 mmol/L (3.5-5.1); Sodium Level 140 mmol/L (136-145)
== END | disposition home or self-care (01) ==
LOC: LAB 14:06
PROVIDERS: PCP Family Medicine; Referring Provider Nurse Practitioner Gerontology; Visit Provider Nurse Practitioner Gerontology
DX: R06.02 Shortness of breath (principal); I25.5 Ischemic cardiomyopathy
CPT/HCPCS: 36415; 80048

== ENCOUNTER → 2023-08-08 | Outpatient (CLI) | payer MEDICARE, SELFPAY ==
[2023-08-08 17:38] LABS: Absolute Lymphocyte Count 1.08 X10^3/uL (0.83-4.51); Absolute Neutrophil Count 5.3 X10^3/uL (2.0-7.7); Basophil# 0.04 X10^3/uL; Basophil% 0.6 % (0-1); Eosinophil# 0.09 X10^3/uL; Eosinophils% 1.3 % (0-5); Hematocrit 39.7 % (40-54); Hemoglobin 12.7 g/dL (13.0-16.5); Lymphocyte # 1.08 X10^3/ul (0.83-4.51); Lymphocyte % 15.1 % (19-41); Mean Corpuscular Hgb 31.3 pg (27.0-32.0); Mean Corpuscular Volume 97.8 fL (80-94); Mean Platelet Vol. 9.6 fl (6.2-12.0); Monocyte# 0.62 X10^3/uL; Monocyte% 8.6 % (0-10); NRBC Flagged by Analyzer 0 % (0-5); Neutrophil # 5.32 X10^3/uL (2.7-7.7); Neutrophil % 74.1 % (47-70); Platelet Count 194 K/mm3 (150-450); RBC Distribution Width SD 50.4 fl (35.1-43.9); Red Blood Count 4.06 M/mm3 (4.6-6.2); White Blood Count 7.2 K/mm3 (4.4-11.0)
[2023-08-08 17:53] LABS: Vitamin B12 535 pg/mL (211-911)
[2023-08-08 18:46] LABS: ALB/GLOB Ratio 1.2 RATIO (0.9-2.4); AST(SGOT) 19 U/L (15-37); Alanine Aminotransfer ALT/SGPT 16 U/L (16-61); Albumin, Serum 3.7 g/dL (3.2-5.0); Alkaline Phosphatase 110 U/L (45-117); Anion Gap 6 (5-15); BUN 21 mg/dL (7-18); BUN/Creat Ratio 24.3 RATIO (10-20); Calcium,Total 9.3 mg/dL (8.5-10.1); Chloride 108 mmol/L (98-107); Creatinine, Serum 0.86 mg/dL (0.70-1.30); EST Glomerular Filtration Rate 90 mL/min (>60); Est Glom Filt Rate - Afr Amer 109 mL/min (>60); Globulin 3.1 g/dL (2.2-4.2); Glucose 96 mg/dL (74-106); Potassium 4.6 mmol/L (3.5-5.1); Protein, Total 6.8 g/dL (6.4-8.2); Sodium Level 139 mmol/L (136-145); Thyroid Stim Hormone (TSH) 1.02 uIU/mL (0.358-3.74)
[2023-08-11 16:07] LABS: PROEL- A/G Ratio 1.3 (0.7-1.7); PROEL- Albumin 3.7 g/dL (2.9-4.4); PROEL- Alpha-1 Globulin 0.2 g/dL (0.0-0.4); PROEL- Alpha-2 Globulin 0.6 g/dL (0.4-1.0); PROEL- Globulin, Total 2.8 g/dL (2.2-3.9); PROEL- TOTAL PROTEIN 6.5 g/dL (6.0-8.5); PROEL-M-Spike Not Observed g/dL (Not Observed)
== END | disposition home or self-care (01) ==
LOC: MFPLAB 14:39
PROVIDERS: PCP Family Medicine; Visit Provider Family Medicine
DX: R20.2 Paresthesia of skin (principal)
CPT/HCPCS: 36415; 80053; 82607; 82746; 84165; 84443; 85025

== ENCOUNTER → 2023-08-22 | Outpatient (CLI) | payer MEDICARE, SELFPAY ==
--- NOTE | 2023-08-22 10:36 | ECHOD_ITS ---
Reason For Study: Dyspnea/SOB Procedure This was a 2D Doppler, Color Flow transthoracic echocardiogram. Myocardial strain analysis was performed in this exam to aid in the assessment of cardiac function. Exam performed in department. Left Ventricle Mildly dilated left ventricle. The estimated ejection fraction is 30 %. [place] : Akinetic. Infero- Basal: Akinetic. There is moderate global hypokinesis of the left ventricle. Right Ventricle Normal RV size. ICD or pacer leads identified within the right ventricle. Normal systolic function. Atria The left atrium is moderately enlarged. ICD or pacer leads identified within the right atrium. The right atrium is mildly enlarged. Mitral Valve Bileaflet diffuse mitral valve thickening. Mild-Moderate (1-2+) eccentric mitral valve insufficiency. Tricuspid Valve Normal tricuspid valve. Mild to moderate (1-2+) tricuspid valve insufficiency. Pulmonary artery systolic pressure is 49 mmHg. Aortic Valve Trisinus/trileaflet aortic valve. Mild (1+) aortic valve insufficiency. Pulmonic Valve Normal pulmonic valve. Great Vessels Normal aortic root. The pulmonary artery is normal size. Inferior vena cava collapse with respiration. Pericardium/Pleural No pericardial effusion. MMode/2D Measurements & Calculations LVIDd: 6.2 cm IVSd: 0.97 cm LVOT diam: 2.1 cm LVIDs: 5.6 cm LVPWd: 1.0 cm LVOT area: 3.6 cm2 RVDd: 4.6 cm FS: 8.8 % Ao root diam: 3.5 cm LAV(MOD-bp): 122.7 ml LVAd ap4: 39.2 cm2 LA dimension: 5.6 cm LAV(MOD-bp) Indexed: 67.6 ml/m2 LVLd ap4: 8.8 cm LAV(MOD-sp2): 121.3 ml EDV(MOD-sp4): 139.7 ml LAV(MOD-sp4): 108.5 ml EDV(sp4-el): 148.3 ml LVAs ap4: 31.1 cm2 LVLs ap4: 8.7 cm ESV(MOD-sp4): 90.3 ml ESV(sp4-el): 94.8 ml EF(MOD-sp4): 35.3 % EF(sp4-el): 36.1 % SV(MOD-sp4): 49.3 ml SV(sp4-el): 53.5 ml LA A4 area: 30.3 cm2 RA A4 area: 21.2 cm2 TAPSE: 1.9 cm Time Measurements MV dec time: 0.24 sec Doppler Measurements & Calculations MV E max mamadou: 87.2 cm/sec Lat Peak E' Mamadou: 6.8 cm/sec Med Peak E' Mamadou: 7.2 cm/sec MV A max mamadou: 82.3 cm/sec E/E' lat: 12.8 E/E' med: 12.2 MV E/A: 1.1 MV V2 max: 130.7 cm/sec MV P1/2t max mamadou: 132.6 cm/sec Ao V2 max: 218.7 cm/sec MV max P.9 mmHg MV P1/2t: 100.9 msec Ao max P.1 mmHg MV V2 mean: 67.6 cm/sec Ao V2 mean: 134.6 cm/sec MV mean P.2 mmHg MV dec slope: 384.8 cm/sec2 Ao mean P.8 mmHg MV V2 VTI: 48.7 cm MVA(P1/2t): 2.2 cm2 Ao V2 VTI: 45.5 cm AV (velocity ratio): 0.42 MVA(VTI): 1.4 cm2 CAITY(I,D): 1.5 cm2 CAITY(V,D): 1.4 cm2 AI max mamadou: 446.5 cm/sec LV V1 max: 83.3 cm/sec MR max mamadou: 572.8 cm/sec AI max P.7 mmHg LV V1 max P.8 mmHg MR max P.2 mmHg LV V1 mean P.6 mmHg MR mean mamadou: 422.6 cm/sec AI dec slope: 190.2 cm/sec2 LV V1 mean: 58.8 cm/sec MR mean P.0 mmHg AI P1/2t: 687.6 msec LV V1 VTI: 19.3 cm MR VTI: 222.1 cm SV(LVOT): 69.0 ml PA V2 max: 81.1 cm/sec TR max mamadou: 332.9 cm/sec PA V2 mean: 49.8 cm/sec TR max P.3 mmHg ECHO/Echo Complete Interpretation Summary Mildly dilated left ventricle. The estimated ejection fraction is 30 %. The left atrium is moderately enlarged. Mild-Moderate (1-2+) eccentric mitral valve insufficiency. Mild to moderate (1-2+) tricuspid valve insufficiency. Ordering Physician: Pamela Mackenzie Referring Physician: Juan Carlos Joel MD Performed By: Wilmer Sierra RCS
== END | disposition home or self-care (01) ==
PROVIDERS: PCP Family Medicine; Referring Provider Nurse Practitioner Gerontology; Visit Provider Nurse Practitioner Gerontology
DX: R06.02 Shortness of breath (principal); I25.5 Ischemic cardiomyopathy
CPT/HCPCS: 93306

== ENCOUNTER → 2023-09-05 | Outpatient (CLI) | payer MEDICARE, SELFPAY ==
--- NOTE | 2023-09-05 20:20 | STRESSREP ---
Stress Test Report Pharmacologic myocardial perfusion stress test. 77-year-old man with a history of coronary disease status post coronary bypass surgery status post defibrillator. Resting EKG demonstrates sinus rhythm with ventricular pacing and a rate of 63 bpm. Resting blood pressure is 118/72 mmHg. 0.4 mg of regadenoson was infused per usual protocol followed by rapid intravenous saline flush injection. Continuous EKG monitoring was performed. The maximum heart rate was 77 bpm which was 54% of max impacted heart rate the maximum workload was 1 metabolic equivalent. At rest there were no ST or T wave changes noted to suggest ischemia and at peak infusion nonspecific ST changes were noted which did not meet the criteria for ischemia. No clinical angina is noted. The final blood pressure was 106/64 mmHg. Myocardial perfusion protocol. 11 point mCi of technetium 99m sestamibi was injected at rest. 0.4 mg of regadenoson was infused per usual protocol. At peak infusion 31 point mCi of technetium 99m sestamibi was injected stress images were obtained stress and rest images were reconstructed and compared in the short axis vertical long and horizontal long axis. Gated images were also obtained. Perfusion SPECT analysis: Review of the stress images demonstrate normal uptake of tracer noted in all areas of the myocardium. The apex appears to have a perfusion defect. The resting images similar demonstrated normal uptake of tracer noted in all areas of the myocardium. Minimal improvement is noted suggesting a previous apical infarct with minimal rosa-infarct ischemia. Gated SPECT analysis: The gated ejection fraction is 34%. Conclusion: Myocardial perfusion stress test with evidence of previous apical infarct. Minimal rosa-infarct ischemia Ischemic cardiomyopathy.
== END | disposition home or self-care (01) ==
LOC: CVS 06:16
PROVIDERS: PCP Family Medicine; Referring Provider Nurse Practitioner Gerontology; Visit Provider Nurse Practitioner Gerontology
DX: I25.10 Atherosclerotic heart disease of native coronary artery without angina pectoris (principal); I47.10 Supraventricular tachycardia, unspecified; R06.02 Shortness of breath
CPT/HCPCS: 78452; 93017; A9500; A4216; J2785

== ENCOUNTER → 2023-10-10 | Outpatient (CLI) | payer MEDICARE, SELFPAY ==
[2023-10-10 17:51] LABS: Absolute Lymphocyte Count 1.08 X10^3/uL (0.83-4.51); Absolute Neutrophil Count 5.2 X10^3/uL (2.0-7.7); Basophil# 0.03 X10^3/uL; Basophil% 0.4 % (0-1); Eosinophil# 0.05 X10^3/uL; Eosinophils% 0.7 % (0-5); Hematocrit 40.1 % (40-54); Hemoglobin 13.3 g/dL (13.0-16.5); Lymphocyte # 1.08 X10^3/ul (0.83-4.51); Mean Corp Hgb Conc 33.2 g/dL (32-36); Mean Corpuscular Hgb 31.8 pg (27.0-32.0); Mean Corpuscular Volume 95.9 fL (80-94); Mean Platelet Vol. 9.2 fl (6.2-12.0); Monocyte# 0.77 X10^3/uL; Monocyte% 10.7 % (0-10); NRBC Flagged by Analyzer 0 % (0-5); Neutrophil # 5.24 X10^3/uL (2.7-7.7); Neutrophil % 72.8 % (47-70); Platelet Count 222 K/mm3 (150-450); RBC Distribution Width CV 13.9 % (11.6-14.6); RBC Distribution Width SD 49.3 fl (35.1-43.9); Red Blood Count 4.18 M/mm3 (4.6-6.2); White Blood Count 7.2 K/mm3 (4.4-11.0)
[2023-10-10 18:07] LABS: ALB/GLOB Ratio 1.1 RATIO (0.9-2.4); AST(SGOT) 19 U/L (15-37); Alanine Aminotransfer ALT/SGPT 16 U/L (16-61); Albumin, Serum 3.9 g/dL (3.2-5.0); Alkaline Phosphatase 114 U/L (45-117); Anion Gap 8 (5-15); BUN 33 mg/dL (7-18); BUN/Creat Ratio 28.7 RATIO (10-20); Calcium,Total 9.9 mg/dL (8.5-10.1); Chloride 103 mmol/L (98-107); Creatinine, Serum 1.15 mg/dL (0.70-1.30); EST Glomerular Filtration Rate 65 mL/min (>60); Est Glom Filt Rate - Afr Amer 79 mL/min (>60); Globulin 3.4 g/dL (2.2-4.2); Glucose 104 mg/dL (74-106); PSA,Total- Diagnostic 1.88 ng/mL (0.0-4.0); Potassium 4.4 mmol/L (3.5-5.1); Protein, Total 7.3 g/dL (6.4-8.2); Sodium Level 138 mmol/L (136-145)
[2023-10-11 19:37] LABS: Microalbumin,Random Urine 7.4 mg/L (NO RANGE EST.); Microalbumin:Creatinine Ratio 8.9 mg/g CRE (<30 mg/g CRE)
== END | disposition home or self-care (01) ==
LOC: MFPLAB 15:12
PROVIDERS: PCP Family Medicine; Visit Provider Family Medicine
DX: R35.0 Frequency of micturition (principal)
CPT/HCPCS: 36415; 80053; 82043; 82570; 84153; 85025

== ENCOUNTER → 2023-11-19 | Outpatient (CLI) | payer MEDICARE, SELFPAY ==
[2023-11-19 15:23] LABS: Absolute Lymphocyte Count 1.08 X10^3/uL (0.83-4.51); Absolute Neutrophil Count 4.6 X10^3/uL (2.0-7.7); Basophil# 0.03 X10^3/uL; Basophil% 0.5 % (0-1); Eosinophil# 0.06 X10^3/uL; Eosinophils% 0.9 % (0-5); Hematocrit 37.8 % (40-54); Hemoglobin 12.4 g/dL (13.0-16.5); Lymphocyte # 1.08 X10^3/ul (0.83-4.51); Mean Corp Hgb Conc 32.8 g/dL (32-36); Mean Corpuscular Volume 97.4 fL (80-94); Mean Platelet Vol. 9.4 fl (6.2-12.0); Monocyte# 0.55 X10^3/uL; Monocyte% 8.6 % (0-10); NRBC Flagged by Analyzer 0 % (0-5); Neutrophil % 72.4 % (47-70); Platelet Count 208 K/mm3 (150-450); RBC Distribution Width CV 13.3 % (11.6-14.6); RBC Distribution Width SD 47.3 fl (35.1-43.9); Red Blood Count 3.88 M/mm3 (4.6-6.2); White Blood Count 6.4 K/mm3 (4.4-11.0)
[2023-11-19 15:59] LABS: ALB/GLOB Ratio 1.1 RATIO (0.9-2.4); AST(SGOT) 22 U/L (15-37); Alanine Aminotransfer ALT/SGPT 17 U/L (16-61); Alkaline Phosphatase 112 U/L (45-117); Anion Gap 6 (5-15); BUN 35 mg/dL (7-18); BUN/Creat Ratio 30.4 RATIO (10-20); Calcium,Total 9.3 mg/dL (8.5-10.1); Chloride 107 mmol/L (98-107); Creatinine, Serum 1.15 mg/dL (0.70-1.30); EST Glomerular Filtration Rate 65 mL/min (>60); Est Glom Filt Rate - Afr Amer 79 mL/min (>60); Estradiol 28.4 pg/mL; Globulin 3.5 g/dL (2.2-4.2); Glucose 105 mg/dL (74-106); Potassium 4.2 mmol/L (3.5-5.1); Protein, Total 7.5 g/dL (6.4-8.2); Sodium Level 139 mmol/L (136-145)
[2023-11-24 10:07] LABS: Testosterone, % Free 2.66 % (1.50-4.20); Testosterone, Free 12.21 ng/dL (5.00-21.00); Testosterone, Total 459 ng/dL (264-916)
== END | disposition home or self-care (01) ==
LOC: MFPLAB 11:37
PROVIDERS: PCP Family Medicine; Visit Provider Family Medicine
DX: I25.5 Ischemic cardiomyopathy (principal); N62 Hypertrophy of breast
CPT/HCPCS: 36415; 80053; 82670; 84146; 84402; 84403; 85025

== ENCOUNTER 2023-12-31 08:45 | Day surgery (SDC) | payer MEDICARE, SELFPAY ==
[2023-12-17 09:50] LABS: Bacteria 0 SEEN /hpf (None Seen); Mucous, Urine 0 SEEN /hpf (<or=2+); Red Blood Cells-Urine 0 SEEN /hpf (0-5); Squamous Epithelial Cells - UA 0 SEEN /hpf (0-5)
[2023-12-17 10:24] LABS: Hematocrit 34.6 % (40-54); Hemoglobin 11.7 g/dL (13.0-16.5); Mean Corp Hgb Conc 33.8 g/dL (32-36); Mean Corpuscular Hgb 32.6 pg (27.0-32.0); Mean Corpuscular Volume 96.4 fL (80-94); Platelet Count 204 K/mm3 (150-450); RBC Distribution Width CV 12.8 % (11.6-14.6); RBC Distribution Width SD 45.6 fl (35.1-43.9); Red Blood Count 3.59 M/mm3 (4.6-6.2); White Blood Count 6.5 K/mm3 (4.4-11.0)
[2023-12-17 10:30] LABS: Color, Urine Yellow (Yellow); Glucose, Dipstick Normal (Normal); Ketone-Dipstick Negative (Negative); Leukocyte Esterase-Dipstick Negative /ul (Negative); Nitrite-Dipstick Negative (Negative); Occult Blood-Urine Negative /ul (Negative); Protein-Dipstick Negative (Negative); Specific Gravity, Urine 1.015 (1.002-1.030); Urine Bilirubin Dipstick Negative (Negative); Urine Clarity Clear (Clear); Urine Urobilinogen Normal (Normal)
[2023-12-17 10:47] LABS: Hyaline Cast 0-5 SEEN /lpf (0-5); White Blood Cells 0-5 SEEN /hpf (0-5)
[2023-12-17 12:03] LABS: AST(SGOT) 21 U/L (15-37); Alanine Aminotransfer ALT/SGPT 26 U/L (16-61); Albumin, Serum 3.7 g/dL (3.2-5.0); Alkaline Phosphatase 102 U/L (45-117); Bilirubin, Direct 0.26 mg/dL (0.00-0.30); Cholesterol 116 mg/dL (200); Globulin 3.2 g/dL (2.2-4.2); High Density Lipoprotein 43 mg/dL; Protein, Total 6.9 g/dL (6.4-8.2); Triglycerides 86 mg/dL; Very Low Density Lipoprotein 17 mg/dL (5-40)
[2023-12-17 15:32] LABS: Anion Gap 5 (5-15); BUN 57 mg/dL (7-18); BUN/Creat Ratio 40.4 RATIO (10-20); Calcium,Total 9.4 mg/dL (8.5-10.1); Chloride 104 mmol/L (98-107); Creatinine, Serum 1.41 mg/dL (0.70-1.30); EST Glomerular Filtration Rate 51 mL/min (>60); Est Glom Filt Rate - Afr Amer 62 mL/min (>60); Glucose 119 mg/dL (74-106); Potassium 4.2 mmol/L (3.5-5.1); Sodium Level 136 mmol/L (136-145)
[2023-12-30 07:47] VITALS: BMI 21.1
--- NOTE | 2023-12-31 11:22 | EX.PACEMAKER ---
Pacemaker Procedure Note Pacemaker Procedure Note Aid Schmitt is a 78 year old male who has a past medical history of an ischemic cardiomyopathy s/p CABG and multiple PCI who has a STOCK ANALYST-D in place which has reached EOL, parkinson's disease who presented to the [facility] EP lab for further evaluation regarding a generator changeout. I had an extensive discussion with he and his family present. His overall health has been deteriorating lately, and he would like to no longer have a defibrillator. I discussed how a STOCK ANALYST-P would only provide pacing, and would not provide defibrillation. He preferred to change to a STOCK ANALYST-P. The patient was brought to the electrophysiology laboratory in a fasting state. Sedation provided by myself and nursing staff. The left shoulder area was prepped and draped in the usual manner and the skin and subcutaneous tissues below the left clavicle were infiltrated with 1% lidocaine for local anesthesia. The skin was sharply incised. Electrocautery and blunt dissection were carried out to the level of the pulse generator. The current leads were disconnected from the pulse generator and attached to the new STOCK ANALYST-P generator. The IS-1 RV lead was inserted into the STOCK ANALYST-P generator, and the DF pins were capped. The device and leads were noted to be functioning appropriately with stable parameters. The pocket was noted to have an absence of active bleeding. The pulse generator was placed in the pocket and sutured to the pre-pectoral fascia. The pocket was then irrigated with antibiotic solution. The incision was closed with two layers of 2-0 Vicryl and a subcuticular closure of 4-0 Vicryl. Conclusions Successful implantation of STOCK ANALYST-P with adequate pacing threshold, sensing and lead impedance. Recommendations 1. Routine follow-up in the device clinic. 2. Remove outer dressing after 48 hours. Leave steri-strips intact for 7-10 days, then remove if it does not fall off by itself. 3. Device follow up as scheduled. 4. Hold anticoagulation for 24 hours (No heparin IV or NOAC, ok to continue warfarin). 5. The patient can continue to follow-up with Dr. Kaplan.
== END 2023-12-31 12:52 | disposition home or self-care (01) ==
PROVIDERS: Nurse Practitioner Gerontology; Physician Assistant Medical; PCP Family Medicine; Referring Provider Internal Medicine Cardiovascular Disease; Visit Provider Internal Medicine Cardiovascular Disease
DX: Z95.0 Presence of cardiac pacemaker (principal); G20.C Parkinsonism, unspecified; I25.10 Atherosclerotic heart disease of native coronary artery without angina pectoris; I10 Essential (primary) hypertension; I25.5 Ischemic cardiomyopathy; E78.2 Mixed hyperlipidemia; Z79.82 Long term (current) use of aspirin; Z79.51 Long term (current) use of inhaled steroids; Z79.899 Other long term (current) drug therapy; Z95.1 Presence of aortocoronary bypass graft; Z95.5 Presence of coronary angioplasty implant and graft
CPT/HCPCS: 33229; 36415; 80048; 80061; 80076; 81001; 85027; 99152; 99153; J7040; J7050

== ENCOUNTER 2024-01-18 15:04 | Inpatient (IN) | payer MEDICARE, SELFPAY ==
[2024-01-18 15:05] VITALS: BP 96/53; PULSE 60; RESP 17; TEMP 36.4; O2SAT 100; BMI 19.3
--- NOTE | 2024-01-18 15:10 | EX.ED.DYSGE1 ---
HPI History of Present Illness Chief Complaint: Syncope [facility] Medical History (Updated 01/16/24 @ 16:14 by Kyara Santiago) Presence of cardiac resynchronization therapy pacemaker ([employer]-P) Parkinson's disease Mixed hyperlipidemia Abnormal echocardiogram Nonrheumatic mitral (valve) prolapse Presence of stent in coronary artery (~03/21/10) Essential hypertension Paroxysmal supraventricular tachycardia Chest discomfort Fatigue Angina pectoris Atherosclerotic heart disease of [place] coronary artery without angina pectoris Ischemic cardiomyopathy Left bundle branch block Chronic systolic heart failure [employer]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 Abnormal electrocardiogram Nonspecific abnormal unspecified cardiovascular function study Paroxysmal supraventricular tachycardia by electrocardiogram (ECG) Home Medications ?Medication ?Instructions ?Recorded ?Last Taken ?Type aspirin 81 mg tablet,delayed 81 mg PO DAILY@0800 04/21/13 12/30/23 History release nitroglycerin 0.4 mg sublingual 0.4 mg sublingual Q5M PRN Chest 06/12/19 Unknown Rx tablet Pain #25 tabs albuterol sulfate 90 mcg/actuation 2 puff inhalation Q6H PRN 01/27/20 Unknown Rx aerosol inhaler shortness of breath or wheezing #6.7 grams ascorbic acid (vitamin C) 500 mg 500 mg PO DAILY 10/31/20 Unknown History tablet melatonin 10 mg tablet 10 mg PO HS PRN insomnia 10/23/21 Unknown History cholecalciferol (vitamin D3) 250 250 mcg PO DAILY 05/28/22 Unknown History mcg (10,000 unit) capsule atorvastatin 80 mg tablet See Rx Instructions .Route 05/17/23 Unknown Rx .COMPLEX #90 tabs carbidopa 25 mg-levodopa 100 mg 2 tab PO .qid 06/25/23 12/31/23 History tablet metoprolol succinate 50 mg 25 mg PO DAILY 06/25/23 12/31/23 History tablet,extended release 24 hr ramipril 10 mg capsule 10 mg PO BID 06/25/23 12/31/23 History Handicap Placcard #1 ea 07/25/23 Unknown Rx spironolactone 25 mg tablet 25 mg PO DAILY #90 tabs 10/15/23 Unknown Rx finasteride 5 mg tablet 5 mg PO DAILY 12/19/23 12/31/23 History furosemide 40 mg tablet 20 mg (1/2 x 40 mg) PO DAILY #5 12/19/23 12/31/23 Rx tabs indapamide 1.25 mg tablet 1.25 mg PO QAM 12/19/23 12/31/23 History mirtazapine 30 mg tablet 30 mg PO DAILY 12/19/23 Unknown History tamsulosin 0.4 mg capsule 0.4 mg PO DAILY 12/19/23 Unknown History Allergy/AdvReac Type Severity Reaction Status Date / Time adhesive tape Allergy NEEDS Verified 12/19/23 14:32 FOLLOW-UP Family History Mother Hypertension Father COPD (chronic obstructive pulmonary disease) CAD (coronary artery disease) Hx CABG CVA (cerebral vascular accident) Brother CAD (coronary artery disease) Diabetes Hypertension Sister Hypertension Son HLD (hyperlipidemia) Other Heart disease Surgical History (Updated 01/16/24 @ 16:14 by Kyara Santiago) History of open reduction and internal fixation (ORIF) procedure (~1979) History of bilateral inguinal hernia repair History of right hip replacement History of percutaneous transluminal coronary angioplasty (~03/21/10) S/P implantation of automatic cardioverter/defibrillator (AICD) Aortocoronary bypass status (~01/23/95) Social History Smoking Status: Never smoker alcohol intake: never substance use type: does not use caffeine: Yes Type: carbonated beverages Number of servings: 1 what type of physical activity do you participate in: none seatbelt use: always do you feel safe at home: Yes EXAM Physical Exam Const Vital Signs: 01/18/24 15:05 01/18/24 15:05 01/18/24 17:02 Temperature 97.6 F L Temperature Source Oral Pulse Rate 60 73 Respiratory Rate 17 15 Blood Pressure 96/53 L 102/46 L Blood Pressure Mean 67 64 Pulse Ox 100 Oxygen Delivery Method Room Air MDM MDM MDM Narrative Medical decision making narrative: HISTORY OF PRESENT ILLNESS: 78-year-old male history of pacemaker, ischemic cardiopathy, CABG, AICD, stents, presents with syncope. Patient states he was out in the sun today notes he was slightly warm. Notes he felt diffusely weak and then passed out. There is no trauma reported no head trauma. Notes recently he has not been eating as well as he should. Denies trouble with urination. Denies chest pain. Denies shortness of breath. Denies palpitations. Denies any pacemaker shocks. Denies cough fever chills. Denies any bleeding diathesis. Does note 1 episode of nonbloody nonbilious vomitus prior to arrival to the emergency department. REVIEW OF SYSTEMS: Pertinent positives: Syncope Pertinent negatives: PHYSICAL EXAM: Nursing triage notes reviewed, Vital signs reviewed Constitutional: please see mdm HENT: MMM Eyes: Pupils equal round and reactive to light, Extraocular muscles intact Neck: No stridor, no JVD, full neck ROM Lungs: Clear to auscultation, No wheezing or rales. No increased work of breathing, no conversational dyspnea, no accessory muscle use, no nasal flaring. No respiratory distress noted Heart: Regular rate and rhythm, No murmurs, No rubs and No gallops, 2+ distal pulses (radial, femoral, posterior tibial) in all extremities. Pacemaker site slightly swollen, wound clean dry intact with Steri-Strips present. No fluctuance induration erythema crepitus or bullae noted. No significant tenderness to palpation over site. Abdomen: Soft, there is no tenderness, rigidity, rebound or guarding, no obvious peritoneal signs, no palpable pulsatile abdominal masses, no auscultated abdominal bruit : No CVAT Extremities: No edema Neuro: No focal neurological deficits, cranial nerves II through XII intact, 5/5 strength in all extremities. Intact sensation to light touch in all extremities, 2+ reflexes bilateral patella tendons. Normal gait. No ataxia. Skin: No rash or lesions noted MEDICAL DECISION MAKING: Chief Complaint: Syncope External records reviewed: Reviewed recent encounter for pacemaker battery removal and replacement, also had defibrillator removed 12/31/2023. Reviewed prior echocardiogram from 2023 that showed an ejection fraction of 30% Factors affecting care: as per HPI Social determinants of health: none History obtained from others: EMS Consults: Cardiology (Dr. Fontenot), Internal Medicine (Dr. Aldana) [facility] Narrative: The patient was initially hypotensive with a blood pressure 96/53 otherwise afebrile and nontoxic-appearing. Exam without focal cardiopulmonary normalities. No obvious infectious signs along recent device insertion I considered the following differential diagnosis: Arrhythmia, myocardial ischemia, anemia, electro disturbance, dehydration, infectious etiology including pneumonia I obtained a broad lab and imaging workup to further elucidate etiology patient complaint I wanted to rehydrate the patient and give report decreased p.o. intake and vomiting as well as soft blood pressures. Given his ejection fraction of only 30% give him a small judicious fluid bolus of 500 cc over 2 hours. ALL IMAGES (IF OBTAINED) HAVE BEEN PERSONALLY REVIEWED AND INTERPRETED BY MYSELF. EKG with AV paced rhythm, extreme axis deviation, prolonged QT interval, no obvious ischemic changes, when compared to prior EKG from 12/19/2023 pacemaker interrogation with no events since last Check High-sensitivity troponin is negative, no evidence of myocardial ischemia CBC without leukocytosis, noted mild anemia similar to prior studies, no thrombocytopenia BMP without significant electrolyte abnormality, noted mild metabolic acidosis with a bicarb of 20, no evidence of an elevated anion gap to suggest endorgan hypoperfusion, noted CHRIS with a creatinine of 1.8 baseline creatinine 1.4. BNP within norm limit suggestive of no increased ventricular stretch or heart failure Urinalysis shows no evidence of urinary inflammation suggestive of UTI On reassessment patient's blood pressure improved to 114/74. He said he felt much better. Given the patient advanced age, significant cardiopulmonary history, history of dehydration and poor p.o. intake, evidence dehydration with acute kidney injury I offered the patient admission. He excepted. He is admitted to the internal medicine service under Dr. Aldana. The patient and/or family, caregivers express understanding. The patient and/or family, caregivers agrees with the plan. Shared decision making: I will have a discussion with the patient and or visitors regarding risk/benefits of further testing or admission. They will be made aware of of the risk/benefits inherent in this decision they will be given the opportunity to voice understanding. Total critical care time today provided was at least 0 minutes. This excludes separately billable procedures. Critical care time (if documented) is secondary to the patient having high probability of clinically significant/life threatening deterioration in the patient's condition which required my urgent intervention. Impression: 1. Syncope 2. History of pacemaker 3. Dehydration 4. Acute kidney injury Dispo: Discharge home This note was generated with [employer] dictation software. It may contain incorrect words, spelling, and punctuation that were not noted in review of the chart prior to signing. Lab Data Labs: Laboratory Results - last 24 hr 01/18/24 01/18/24 01/18/24 15:42 16:08 17:45 WBC 6.4 RBC 3.15 L Hgb 10.6 L Hct 30.3 L MCV 96.2 H MCH 33.7 H MCHC 35.0 RDW Std Deviation 45.4 H RDW Coeff of Patricia 12.9 Plt Count 177 MPV 9.5 Sodium 138 Potassium 4.2 Chloride 108 H Carbon Dioxide 20.0 L Anion Gap 10 BUN 55 H Creatinine 1.83 H Estim Creat Clear Calc 30.22 Est GFR (MDRD) Af Amer 46 L Est GFR (MDRD) Non-Af 38 L BUN/Creatinine Ratio 30.1 H Glucose 139 H Calcium 9.3 Troponin I High Sens 17 27 B-Natriuretic Peptide 58.4 Urine Color Yellow Urine Clarity Clear Urine pH 5.0 Ur Specific [place] 1.020 Urine Protein Negative Urine Glucose (UA) Normal Urine Ketones 5 H Urine Occult Blood Negative Urine Nitrite Negative Urine Bilirubin Negative Urine Urobilinogen Normal Ur Leukocyte Esterase Negative Urine RBC 0 SEEN Urine WBC 0 SEEN Ur Squamous Epith Cells 0 SEEN Urine Bacteria 0 SEEN Urine Mucus 0 SEEN Radiography Diagnostic Testing: Clinical Impression(s) from Imaging Studies Chest X-Ray 01/18/24 15:48 IMPRESSION: No change in the appearance the chest from the reference exam. No acute pulmonary abnormality. Electronically Signed: Mynor Xie MD at 16:17 EDT , Discharge Plan Triage Chief Complaint: Syncope ED Provider: Ludwin Ballesteros Dx/Rx/DC Orders Prescriptions: No Action nitroglycerin 0.4 mg tablet, sublingual 0.4 mg SUBLINGUAL Q5M PRN (Reason: Chest Pain) Qty: 25 1RF ascorbic acid (vitamin C) 500 mg tablet 500 mg PO DAILY melatonin 10 mg tablet 10 mg PO HS PRN (Reason: insomnia) cholecalciferol (vitamin D3) 250 mcg (10,000 unit) capsule 250 mcg PO DAILY metoprolol succinate 50 mg tablet extended release 24 hr 25 mg PO DAILY ramipril 10 mg capsule 10 mg PO BID tamsulosin 0.4 mg capsule 0.4 mg PO DAILY mirtazapine 30 mg tablet 30 mg PO DAILY indapamide 1.25 mg tablet 1.25 mg PO QAM finasteride 5 mg tablet 5 mg PO DAILY furosemide 40 mg tablet 20 mg PO DAILY Qty: 5 0RF aspirin 81 MG tablet 81 mg PO DAILY@0800 carbidopa-levodopa 25-100 mg tablet 2 tab PO .qid albuterol sulfate 90 mcg/actuation HFA aerosol inhaler 2 puff INHALATION Q6H PRN (Reason: shortness of breath or wheezing) Qty: 6.7 0RF atorvastatin 80 mg tablet See Rx Instructions .ROUTE .COMPLEX Qty: 90 3RF Dose Instruction: TAKE 1 TABLET AT BEDTIME Rx Instructions: TAKE 1 TABLET AT BEDTIME (DME) Handicap Placcard See Rx Instructions .Route .MEDSUPPLY Qty: 1 0RF Rx Instructions: Dx: Debility Exp: 07/2028 spironolactone 25 mg tablet 25 mg PO DAILY Qty: 90 3RF Primary Care Provider: Juan Carlos Joel Referrals: Juan Carlos Joel MD [Primary Care Provider] - Print Language: Arabic
[2024-01-18] MEDS: 0.9% Normal Saline (500mL Bag) 500 ML 250 ML IV (15:40)
--- NOTE | 2024-01-18 15:48 | RAD_ITS ---
EXAM: XR CHEST, 1 VIEW CLINICAL INDICATION: shortness of breath TECHNIQUE: Frontal view of the chest. COMPARISON: 06/24/2023 FINDINGS: LUNGS AND PLEURAL SPACES: Unremarkable. No consolidation or edema. No pneumothorax. No effusion. HEART: Unremarkable. Cardiac silhouette not enlarged. MEDIASTINUM: Central airways and mediastinal contour are unremarkable. BONES/JOINTS: Surgical clips and median sternotomy wires are present. No acute fracture. SOFT TISSUES: Unremarkable. TUBES, LINES AND DEVICES: Left-sided pacemaker is in place. RAD/Chest 1 View (Portable) IMPRESSION: No change in the appearance the chest from the reference exam. No acute pulmonary abnormality. Electronically Signed: Mynor Xie MD at 16:17 EDT ,
[2024-01-18 15:51] LABS: Hematocrit 30.3 % (40-54); Hemoglobin 10.6 g/dL (13.0-16.5); Mean Corpuscular Hgb 33.7 pg (27.0-32.0); Mean Corpuscular Volume 96.2 fL (80-94); Mean Platelet Vol. 9.5 fl (6.2-12.0); Platelet Count 177 K/mm3 (150-450); RBC Distribution Width CV 12.9 % (11.6-14.6); RBC Distribution Width SD 45.4 fl (35.1-43.9); Red Blood Count 3.15 M/mm3 (4.6-6.2); White Blood Count 6.4 K/mm3 (4.4-11.0)
--- NOTE | 2024-01-18 16:07 | EKG12_ITS ---
Test Reason : SYNCOPE Blood Pressure : / mmHG Vent. Rate : 060 BPM Atrial Rate : 060 BPM P-R Int : 142 ms QRS Dur : 206 ms QT Int : 528 ms P-R-T Axes : 000 245 070 degrees QTc Int : 528 ms AV dual-paced rhythm Abnormal ECG Confirmed by Julius Fontenot ([id number]), photograph editor VIOLETA EDUARDO ([id number]) on 01/20/2024 10:24:59 AM Referred By: TA/LOUIS Confirmed By:Julius Fontenot
[2024-01-18 16:12] LABS: Bacteria 0 SEEN /hpf (None Seen); Mucous, Urine 0 SEEN /hpf (<or=2+); Red Blood Cells-Urine 0 SEEN /hpf (0-5); Squamous Epithelial Cells - UA 0 SEEN /hpf (0-5); White Blood Cells 0 SEEN /hpf (0-5)
[2024-01-18 16:13] LABS: BNP,B-Type NATRIURETIC PEPTIDE 58.4 pg/mL (0-100)
[2024-01-18 16:16] LABS: Anion Gap 10 (5-15); BUN 55 mg/dL (7-18); BUN/Creat Ratio 30.1 RATIO (10-20); Calcium,Total 9.3 mg/dL (8.5-10.1); Chloride 108 mmol/L (98-107); Creatinine, Serum 1.83 mg/dL (0.70-1.30); EST Glomerular Filtration Rate 38 mL/min (>60); Est Glom Filt Rate - Afr Amer 46 mL/min (>60); Estimated Creatinine Clearance 30.22 ml/min; Glucose 139 mg/dL (74-106); Potassium 4.2 mmol/L (3.5-5.1); Sodium Level 138 mmol/L (136-145); Troponin-I HS (w/2H Reflex) 17 pg/mL (3.0-78.0)
[2024-01-18 16:18] LABS: Color, Urine Yellow (Yellow); Glucose, Dipstick Normal (Normal); Ketone-Dipstick 5 mg/dl (Negative); Leukocyte Esterase-Dipstick Negative /ul (Negative); Nitrite-Dipstick Negative (Negative); Occult Blood-Urine Negative /ul (Negative); Protein-Dipstick Negative (Negative); Urine Bilirubin Dipstick Negative (Negative); Urine Clarity Clear (Clear); Urine Urobilinogen Normal (Normal)
--- OUTSIDE RECORDS SUMMARY | 2024-01-18 16:23 | XMS RPT_ITS | CCD ---
Author Organization [facility] Care Team Providers Care Pack Room Operator Name Role Phone RAMIRO Santiago, Jena Garcia Unavailable Unavailable Cassandra RUBIO, Karen Gasria Unavailable [phone] RACHEL Jorgensen, Karen Garcia Unavailable Vero RUBIO, Shweta Leavitt Unavailable Unavailable Valarie Duffy Unavailable Unavailable Valarie Duffy Unavailable Unavailable RAMIRO Santiago, Jena Garcia Unavailable Unavailable Aaron Perez MD Unavailable [facility] Nurse Unavailable Unavailable RACHEL Jorgensen, Karen Garcia Unavailable Barwick, Luli Nadja Primary Care Provider Unavailabl e Barwick, [facility] Primary Care Provider Unavailabl e Barwick, [facility] Primary Care Provider Unavailabl e Barwick, Luli Nadja Primary Care Provider Unavailabl e Bernal SEGMENT PRODUCER.James GONZALEZ Unavailable Albaro YANEZ.Rina GONZALEZ Unavailable WILLIE MATTHEWS Attending Unavailable MAHESH, LULI SAEZ Primary Care Unavailable BAY, LULI SAEZ Primary Care Unavailable WILLIE MATTHEWS Attending Unavailable JAMES BERNAL Attending Unavailable LAKE, LULI NADJA Primary Care Unavailable Barwick, [facility] Primary Care Provider Unavailabl e Analilia SEGMENT PRODUCER.James GONZALEZ Unavailable Albaro YANEZ.Rina GONZALEZ Unavailable [phone] Willie Matthews MD Unavailable [phone] Medications Current Medications Medication Drug Class(es) Dates Sig (Normalized) Sig (Original) amLODIPine 5 mg oral tablet (6 sources) Dihydropyridine Calcium Channel Ganga Start: 08-30-2021 take 1 tablet by mouth once daily amLODIPine (NORVASC) 5 mg tablet Take 1 tablet by mouth once daily. 0 08/30/2021 Active Comment on above: Take 1 tablet by carlota th once daily. Ascorbic Acid (2 sources) Vitamin C ascorbic acid (VITAMIN C ORAL) Take by mouth. 0 Active atorvastatin 80 mg oral tablet (20 sources) HMG-CoA Reductase Inhibitor Start: 03-05-2005 LIPITOR 80 MG TAB Take one(1) tablet daily. 0 03/05/2005 Active Comment on above: Take one(1) tablet d aily. cholecalciferol, vitamin D3, (VITAMIN D3 ORAL) (2 sources) cholecalciferol, vitamin D3, (VITAMIN D3 ORAL) Take by mouth. 0 Active digoxin 0.25 mg oral tablet (20 sources) Cardiac Glycoside Start: 03-05-2005 DIGITEK 250 MCG TAB Take by mouth. 0 03/05/2005 Active Comment on above: Take one(1) tablet d aily. 24 hr metoprolol succinate 50 mg extended release oral tablet (20 sources) beta-Adrenergic Ganga Start: 09-20-2021 take 1 tablet by mouth once daily metoprolol succinate ER (TOPROL XL) 50 mg 24 hr tablet Take 50 mg by mouth once daily. 0 09/20/2021 Active Start: 11-02-2010 take 1 tablet by carlota th once daily TOPROL XL 100 MG [id number] One half tablet by mouth daily METOPROLOL SUCCINATE [id number] Karen Jorgensen PA-C Start: 11-02-2010 take 1 tablet by carlota th once daily TOPROL XL 100 MG [id number] One tablet by mouth daily METOPROLOL SUCCINATE [id number] Aaron Perez MD Comment on above: Take 50 mg by mouth once daily. ramipril 10 mg oral capsule (20 sources) Angiotensin Converting Enzyme Inhibitor Start: 08-04-2022 ramipril (ALTACE) 10 mg capsule Start: 11-02-2010 take 1 tablet by carlota th twice daily ALTACE 10 MG CAPS One tablet by mouth twice daily RAMIPRIL [id number] Aaron Perez MD Start: 11-02-2010 take 1 tablet by carlota th once daily ALTACE 10 MG CAPS One tablet by mouth daily RAMIPRIL [id number] Karen Jorgensen PA-C Start: 11-02-2010 take 1 tablet by carlota th twice daily ALTACE 10 MG CAPS One tablet by mouth twice daily RAMIPRIL [id number] Aaron Perez MD Start: 03-05-2005 End: 09-20-2021 take 1 tablet by mouth once daily ALTACE 10 MG CAPS One tablet by mouth daily RAMIPRIL [id number] BRUCE [employer]C Comment on above: Take one(1) tablet d aily. 24 hr rivastigmine 0.192 mg/hr transdermal system (2 sources) Start: 01-17-20 End: 02-16-20 apply 1 dose transdermal route once daily rivastigmine (EXELON) 4.6 mg/24 hour patch Indications: Parkinson disease (HCC) Apply 1 Patch as directed once daily. 30 Patch 3 01/16/2022 02/15/2022 Active Comment on above: Apply 1 Patch as dir ected once daily. sertraline 100 mg oral tablet (7 sources) Serotonin Reuptake Inhibitor Start: 01-25-20 End: 01-19-20 take 1 tablet by mouth once daily sertraline (ZOLOFT) 100 mg tablet Take 1 tablet by mouth once daily. 90 tablet 3 01/24/2023 01/19/2024 Active Start: 07-01-2021 End: 01-17-2023 take 1 tablet by mouth once daily sertraline (ZOLOFT) 100 mg tablet Take 1 tablet by mouth once daily. 90 tablet 3 01/22/2022 01/17/2023 Active Comment on above: Take 1 tablet by carlota th once daily. Completed/Discontinued Medications Medication Drug Class(es) Dates Sig (Normalized) Sig (Original) aspirin 81 mg delayed release oral tablet (20 sources) Platelet Aggregation Inhibitor, Nonsteroidal Anti-inflammatory Drug Start: 08-23-2011 take 1 tablet by mouth once daily ECOTRIN LOW STRENGTH 81 MG TBEC One tablet by mouth daily ASPIRIN [id number] Aaron Perez MD Start: 11-02-2010 take 1 tablet by carlota th once daily ASPIRIN 325 MG TABS One tablet by mouth daily ASPIRIN [id number] Kim Graham Start: 03-05-[address] RENGTH 81 MG TAB Take one(1) tablet daily. 0 03/05/2005 Active Comment on above: Take one(1) tablet d antwan. carbidopa 25 mg / levodopa 100 mg oral tablet (20 sources) Aromatic Amino Acid Decarboxylation Inhibitor, Aromatic Amino Acid Start: 09-21-19 End: 02-16-20 take 1.5 tablets by mouth four times daily carbidopa-levodopa (SINEMET 25-100) 25-100 mg per tablet Indications: Parkinson disease (HCC) Take 1.5 tablets by mouth four times daily. 540 tablet 0 09/02/2023 11/15/2023 Discontinued Start: 05-26-2021 End: 09-20-2021 take 2 tablets by mouth three times daily carbidopa-levodopa (SINEMET 25-100) 25-100 mg per tablet Take 2 tablets by mouth three times daily. 0 05/26/2021 09/20/2021 Discontinued Start: 05-19-2015 take 1 tablet by carlota th at bedtime SINEMET CR 50-200 MG CR-TABS One tablet by mouth at bedtime. CARBIDOPA-LEVODOPA [id number] Aaron Perez MD Start: 05-19-2015 take 1 tablet by carlota th at bedtime SINEMET CR 50-200 MG CR-TABS One tablet by mouth at bedtime. CARBIDOPA-LEVODOPA [id number] Aaron Perez MD Start: 11-02-2010 take 1 tablet by carlota th three times daily SINEMET 25-100 MG TABS One tablet by mouth three times daily CARBIDOPA-LEVODOPA [id number] Kim Graham Start: 11-02-2010 take 1 tablet by carlota th three times daily SINEMET 25-100 MG TABS One tablet by mouth three times daily CARBIDOPA-LEVODOPA [id number] Kim Graham Comment on above: Take 2 tablets by mo [facility] four times daily. Take 2 tablets by mo [facility] three times daily. cholecalciferol 2000 unt oral capsule (20 sources) Vitamin D Start: 10-13-19 14 take 1 tablet by mouth once daily VITAMIN D3 2000 UNIT CAPS One tablet by mouth daily CHOLECALCIFEROL [id number] Karen Jorgensen PA-C Start: 10-12-2013 VITAMIN D3 200 0 UNIT CAPS 5,000 IU twice daily CHOLECALCIFEROL [id number] Aaron Perez MD citalopram 20 mg oral tablet (20 sources) Serotonin Reuptake Inhibitor Start: 03-05-2005 End: 09-20-2021 take 1 tablet by mouth once daily CELEXA 20 MG TABS One tablet by mouth daily CITALOPRAM HYDROBROMIDE [id number] Kim Graham Comment on above: Take one(1) tablet d aily. clopidogrel 75 mg oral tablet (20 sources) P2Y12 Platelet Inhibitor Start: 11-02-2010 End: 02-25-2012 take 1 tablet by mouth once daily PLAVIX 75 MG TABS One tablet by mouth daily CLOPIDOGREL BISULFATE [id number] Aaron Perez MD ergocalciferol 83692 unt oral capsule (13 sources) Provitamin D2 Compound Start: 10-12-2013 take 1 tablet by mouth once daily VITAMIN D (ERGOCALCIFEROL) 73715 UNIT CAPS One tablet by mouth daily ERGOCALCIFEROL [id number] Karen Jorgensen PA-C Start: 10-12-2013 take 1 tablet by carlota once daily VITAMIN D (ERGOCALCIFEROL) 85941 UNIT CAPS One tablet by mouth daily ERGOCALCIFEROL 52152098060 Karen Jorgensen PA-C etodolac 400 mg oral tablet (20 sources) Nonsteroidal Anti-inflammatory Drug Start: 08-23-2011 End: 09-26-2012 take 1 tablet by mouth twice daily ETODOLAC 400 MG TABS One tablet by mouth twice daily ETODOLAC [id number] Aaron Perez MD furosemide 40 mg oral tablet (20 sources) Loop Diuretic Start: 03-05-2005 LASIX 40 MG TAB Take one(1) tablet daily. 0 03/05/2005 Active Comment on above: Take one(1) tablet daily. 24 hr niacin 1000 mg extended release oral tablet (20 sources) Nicotinic Acid Start: 11-02-2010 End: 10-12-2013 take 1 tablet by mouth at bedtime NIASPAN 1000 MG CR-TABS One tablet by mouth at bedtime. with low fat snack NIACIN (ANTIHYPERLIPIDEM IC) [id number] Aaron Perez MD Start: 03-05-2005 End: 09-20-2021 take 1 tablet by mouth at bedtime NIASPAN 1000 MG CR-TABS One tablet by mouth at bedtime. with low fat snack NIACIN (ANTIHYPERLIPIDEMIC) [id number] Aaron Perez MD Comment on above: Take one(1) tablet d aily. nitroglycerin 0.4 mg sublingual tablet (20 sources) Nitrate Vasodilator Start: 08-23-2011 NITROSTAT 0.4 MG SUBL 1 tablet under tongue every 5 min up to 3 X NITROGLYCERIN [id number] Aaron Perez MD Start: 11-02-2010 NITROGLYCERIN 0.4 MG/HR PT24 1 tablet under tongue every 5 min up to 3 X NITROGLYCERIN [id number] Kim Graham OMEGA-3 FATTY ACIDS CPDR (10 sources) Start: 11-02-2010 take 1 tablet by mouth once daily OMEGA 3 CPDR One tablet by mouth daily OMEGA-3 FATTY ACIDS CPDR [id number] Kim Graham Start: 11-02-2010 End: 02-25-2012 take 1 tablet by mouth once daily OMEGA 3 CPDR One tablet by mouth daily OMEGA-3 FATTY ACIDS CPDR [id number] Aaron Perez MD OMEGA-3 FATTY ACIDS CPDR (16 sources) Start: 11-02-2010 End: 02-25-2012 take 1 tablet by mouth once daily OMEGA 3 CPDR One tablet by mouth daily OMEGA-3 FATTY ACIDS CPDR 17839955273 Aaron Perez MD Start: 11-02-2010 take 1 tablet by carlota th once daily OMEGA 3 CPDR One tablet by mouth daily OMEGA-3 FATTY ACIDS CPDR [id number] Kim Graham Start: 11-02-2010 take 1 tablet by carlota th once daily OMEGA 3 CPDR One tablet by mouth daily OMEGA-3 FATTY ACIDS CPDR [id number] Kim Graham Start: 11-02-2010 End: 02-25-2012 take 1 tablet by mouth once daily OMEGA 3 CPDR One tablet by mouth daily OMEGA-3 FATTY ACIDS CPDR [id number] Aaron Perez MD rasagiline 1 mg oral tablet (20 sources) Monoamine Oxidase Inhibitor Start: 04-10-2013 End: 10-12-2013 AZILECT 1 MG TABS 1/2 tablet x 4 days, then one tablet daily RASAGILINE MESYLATE [id number] Karen Jorgensen PA-C rOPINIRole 1 mg oral tablet (20 sources) Nonergot Dopamine Agonist Start: 02-25-2012 End: 04-19-2014 take 1 tablet by mouth three times daily REQUIP 1 MG TABS One tablet by mouth three times daily ROPINIROLE HCL [id number] Aaron Perez MD Start: 11-02-2010 take 2 tablets by mo [facility] once daily REQUIP 4 MG TABS 2 tablets by mouth daily ROPINIROLE HCL 40944872367 Kim Marinward sulfamethoxazole 800 mg / trimethoprim 160 mg oral tablet (20 sources) Dihydrofolate Reductase Inhibitor Antibacterial, Sulfonamide Antimicrobial Start: 04-17-2013 End: 10-12-2013 take 1 tablet by mouth twice daily BACTRIM DS 800-160 MG TABS One tablet by mouth twice daily X 3 days SULFAMETHOXAZOLE-TRIMETHOPRIM 86997368396 Karen Jorgensen PA-C Start: 04-17-2013 take 1 tablet by carlota th twice daily BACTRIM DS 800-160 MG TABS One tablet by mouth twice daily SULFAMETHOXAZOLE-TRIMETHOPRIM 22214323080 Clair Ovalle RN Start: 04-17-2013 End: 10-12-2013 take 1 tablet by mouth twice daily BACTRIM DS 800-160 MG TABS One tablet by mouth twice daily X 3 days SULFAMETHOXAZOLE-TRIMETHOPRIM 16032767579 Karen Jorgensen PA-C Start: 04-17-2013 take 1 tablet by carlota th twice daily BACTRIM DS 800-160 MG TABS One tablet by mouth twice daily X 3 days SULFAMETHOXAZOLE-TRIMETHOPRIM 19400595180 Aaron Perez MD vitamin b 12 1 mg oral tablet (20 sources) Vitamin B12 Start: 11-02-2010 End: 10-12-2013 take 1 tablet by mouth once daily VITAMIN B-12 1000 MCG TABS One tablet by mouth daily CYANOCOBALAMIN 37494061039 Kim Graham Problems Active Problems Problem Classification Problem Date [...] disease (20 sources) Atherosclerotic heart disease of [place] coronary artery without angina pectoris; Translations: [Angina [...] Translations: [Unsteadiness on feet] Episodic Parkinson`s disease (10 sources) Parkinson's disease; Translations: [Parkinson's disease] Onset: 09-23-2021 Chronic Residual codes; unclassified (1 source) REM sleep behavior disorder; 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 Unclassified (6 sources) Implantation of automatic cardiac defibrillator ; Translations: [Presence of automatic (implantable) cardiac defibrillator] Onset: 11-02-2010 11-02-2010 Unclassified (8 sources) Long-term drug therapy; Translations: [Other care home (current) drug therapy] Onset: 11-02-2010 11-02-2010 Past or Other Problems Problem Classification Problem Date Documented Date Episodic/Chronic Abdominal hernia (12 sources) Recurrent inguinal hernia; Translations: [Unilateral inguinal [...] 11-02-2010 Episodic Other aftercare (5 sources) Other care home (current) drug therapy; Translations: [Other care home (current) drug therapy] Onset: 11-02-2010 Episodic Other nutritional; endocrine; and metabolic [...] Results Test Name Value Interpretation Reference Range Facility [facility] 09-19-2022 CNOV Office Visit (NRMDN) ADI LUND ([id number]) 1945 M Date Time Provider Department 09/19/22 12:00 PM WILLIE MATTHEWS During your visit today, we recorded the following information about you: Weight Height 63.3 kg 1.778 m Willie Matthews MD 09/19/2022 5:39 PM Signed [facility] - FOLLOW UP EVALUATION [...] Exercise: Last PT Date: Last OT Date: Last ST Date: Exercises Regularly: ALLERGIES No Known [...] by mouth four times daily. No current facility-administere d medications for this visit. Objective Vital Signs: Ht 177.8 cm (5' 10 ) Wt 63.3 kg (139 (more content not included)... Normal [facility] Silver 08-27-2022 CNPN Telephone (NREUS2) ASHELYADI Jimenez ([id number]) 1945 Date Time Provider Department 08/27/22 WILLIE MATTHEWS NREUS2 During your visit today, we recorded the following information about you: [facility] Roberto Yee 08/27/2022 3:28 PM Signed NI PHONE Name of caller : spouse Relationship to patient : Spouse/ SignificantOther If not self Will need patient permission to release results or disclose health information with called documented in . Was permission obtained from patient ? Yes Patient identified by Name and Date of . ( Adi Jimenez Ashely, 1945). Yes Reason for Call : calls [...] for him now. Number to return call [phone] Okay to leave a message ? Last office visit 01/16/22 with James No visit scheduled. Thank you calling [facility] [place]. You will receive a return call within 48 hours ( or 2 business days if close to the weekend). If you feel that this is an urgent issue and needs immediate attention, it is recommended that you contact your primary care provider office or proceed to your nearest Urgent Care Center of Emergency Room ED for evaluation/treatment . Radha Monge RN 08/28/2022 12:22 PM Signed Attempted to return call to patient/ at below listed number and assess concerns. No answer. Detailed voicemail left with inquiry about changes in medication / recent illnesses. Offered potential VV with KA on 09/06 @ 7a. (Next available visit). [Visit is not held at this time]. Awaiting reply. Radha Monge, BRADY, RN August 28, 2022 12:21 PM Sangeeta Main RN 09/04/2022 9:50 AM Signed Call to patient to triage, no answer. Message left for return call. Sangeeta Main RN 09/07/2022 11:28 AM Signed Call to patient, no answer Call to home number, disconnected. Call to number listed as work, no answer. Voicemail greeting identifies as Kesha. No message left. Not active on No contact after 3 attempts. Letter sent to home to contact if needing further assistance Regina Andi 09/12/2022 12:26 PM Signed Patient's returned call asking to speak with a nurse, states she can be reached at [phone] Sangeeta Main RN 09/12/2022 2:13 PM Signed Increased sleeping 2-3 naps daily, 1 hour, sometimes longer Goes to bed around 9, wakes between 10am and noon. Wakes feeling tired Wakes often through night, 2-3 times to urinate. Able to fall back to sleep 15-20 minutes after. Slow pace, legs feel weak. Using cane mostly for ambulation. Does have a walker, uses for outings. is asking for home PT has concerns for falling. Unwitnessed fall 1 week ago going to front door. Fell, floor was clear. Bruised hip. Denies hitting head. He looks skinny Appetite is good, finishes most meals. No concerns for hydration, drinking plenty of water. Denies difficulty eating or drinking. Has home scale. Recommended weekly weights to monitor. Asking for podiatry referral for home nail trimming, recommended calling local fish housekeeper to see if one can accommodate with home visit. Transferred to [facility] to assist with scheduling appointment. Willie Matthews MD 09/12/2022 4:40 PM Signed Patient has not been seen by us (James) since January. Cannot order home PT without more recent F2F visit. Would also strongly consider seeing PCP to rule out conditions that could be exacerbating Parkinson's and may be able to order home care sooner Sangeeta Main RN 09/13/2022 9:18 AM Signed Call to patient. No answer. Detailed message left on VM Allergies As of Date: 08/27/2022 (No Known Allergies) Date Reviewed: 01/16/2022 Reviewed by: Kiley Connor MA - Fully Assessed Reason for Visit: Symptom Management [918] Prescriptions as of 09/13/2022 - sertraline (ZOLOFT) 100 mg tablet Take 1 tablet by mouth once daily. - rivastigmine (EXELON) 4.6 mg/24 hour patch Apply 1 Patch as directed once daily. - amLODIPine (NORVASC) 5 mg tablet Take 1 tablet by mouth once daily. - carbidopa-levodopa (SINEMET 25-100) 25-100 mg per tablet Take 2 tablets by mouth four times daily. - LIPITOR 80 MG TAB Take one(1) tablet daily. - DIGITEK 250 MCG TAB Take one(1) tablet daily. - metoprolol succinate ER (TOPROL XL) 50 mg 24 hr tablet Take 50 mg by mouth once daily. - LASIX 40 MG TAB Take one(1) tablet daily. - ECOTRIN LOW STRENGTH 81 MG TAB Take one(1) tablet daily. Problem List As Of Date 08/27/2022 Noted Resolved INGUINAL HERNIA, UNILAT, RECURRENT W/O GANGRENE*03/05/2005 HERNIA INGUINAL,UNILATERAL( left) [K40.90] 03/05/2005 Parkinson disease (HCC) [G20] 09/23/2021 Letter Text (more content not included)... Normal [facility] CNCOon 05-01-2022 CNCO Letter Text Normal [facility] CNPNon 01-17-2022 CNPN Telephone (HCSIND) ADI LUND ([id number]) 1945 M Date Time Provider Department 01/17/22 BRANDON WEINBERG During your visit today, we recorded the following information about you: MAXI Soria 01/17/2022 8:22 AM Signed Thank you for the referral of your patient to [facility]. At this time, we are at capacity and are unable to accept your patient. In order to help your patient receive quality home care, we have included reputable agencies that service this area: [facility] [phone] or [facility] [phone]. Please contact this agency and they will work with your patient to arrange timely services. Thank you, Brandon Weinberg, PSS 01/17/2022 8:22 AM James Bernal APRN.SOCIAL SERVICE DIRECTOR 01/17/2022 11:41 AM Signed Addended by: JAMES BERNAL on: 01/17/2022 11:41 AM Modules accepted: Orders James Bernal APRN.SOCIAL SERVICE DIRECTOR 01/17/2022 11:41 AM Signed Thanks so much! Order is in SEBASTIÁN Tolentino 01/18/2022 10:00 AM Signed Please fax referral to [facility] at [phone]. Bridger Youngblood RN 01/18/2022 10:59 AM Signed Order, demographics and insurance faxed per request. Bridger Youngblood RN DidiSEBASTIÁN David 01/22/2022 11:22 AM Signed SW spoke with Shweta at [facility], patient is out of the service area. Please fax home care referral to [facility] at [phone]. Ami Angel RN 01/22/2022 11:49 AM Signed Information faxed to [facility] as requested. Autumn Pike [facility] 01/23/2022 2:43 PM Signed [facility] called to report pt declined service for PT order received. Allergies As of Date: 01/17/2022 (No Known Allergies) Date Reviewed: 01/16/2022 Reviewed by: Kiley Connor MA - Fully Assessed Reason for Visit: Home Care [4073] Primary Visit Diagnosis:Parkinson' s disease (HCC) [G20] Order(s):CONSULT - [facility] [[id number]] Order #: [id number]: 1 [facility] [[id number]] Order #: [id number]: 1 Prescriptions as of 01/23/2022 - sertraline (ZOLOFT) 100 mg tablet Take 1 tablet by mouth once daily. - rivastigmine (EXELON) 4.6 mg/24 hour patch Apply 1 Patch as directed once daily. - amLODIPine (NORVASC) 5 mg tablet Take 1 tablet by mouth once daily. - carbidopa-levodopa (SINEMET 25-100) 25-100 mg per tablet Take 2 tablets by mouth four times daily. - LIPITOR 80 MG TAB Take one(1) tablet daily. - DIGITEK 250 MCG TAB Take one(1) tablet daily. - metoprolol succinate ER (TOPROL XL) 50 mg 24 hr tablet Take 50 mg by mouth once daily. - LASIX 40 MG TAB Take one(1) tablet daily. - ECOTRIN LOW STRENGTH 81 MG TAB Take one(1) tablet daily. Problem List As Of Date 01/17/2022 Noted Resolved INGUINAL HERNIA, UNILAT, RECURRENT W/O GANGRENE*03/05/2005 HERNIA INGUINAL,UNILATERAL( left) [K40.90] 03/05/2005 Parkinson disease (HCC) [G20] 09/23/2021 Encounter Status:Closed by JAMES [facility]NAL [facility]NRMDN[facility] ASHELYADI CROWLEY ([id number]) 1945 M Date Time Provider Department 01/16/22 3:00 PM JAMES BERNAL NRKERA During your visit today, we recorded the following information about you: Weight Height 67.4 kg 1.753 m James Bernal APRN.SOCIAL SERVICE DIRECTOR 01/17/2022 2:48 PM Signed [facility] - FOLLOW UP EVALUATION [...] behavior disorder: yes Restless Legs Syndrome: no Mood/Behavior/Cognit ion Cognitive impairment: yes Forgets names, sometimes comes [...] Patch as directed once daily. No current facility-administere d medications for this visit. Objective Vital Signs: [...] Physical Examination: He is accompanied by his spo (more content not included)... Normal [facility] CNOVon 09-20-2021 CNOV Office Visit (NRMDN) ADI LUND ([id number]) 1945 M Date Time Provider Department 09/20/21 10:00 AM WILLIE MATTHEWS During your visit today, we recorded the following information about you: Pulse Blood pressure Weight Height 55/minute 141/70 71.2 kg 1.753 m Willie Matthews MD 09/23/2021 9:15 AM Signed [facility] - NEW PATIENT EVALUATION [...] now. Diagnosed around that time. Neurologist left [place]. Would like walking to be better. Doesn't [...] behavior disorder: yes Restless Legs Syndrome: no Mood/Behavior/Cognit ion Cognitive impairment: yes Forgets names, sometimes comes [...] amLODIPine (NORVASC) 5 mg tablet Take 1 tabl (more content not included)... Normal [facility] Office Visit: [facility] 02-13-20 17 Documentation of current medications (procedure) Done Invalid Interpretation Code [employer] Work Phone: [phone] Protein mass conc Done Invalid Interpretation Code [employer] Work Phone: [phone] Lab Report: CBC W/Diff, Auto matedon 01-02-2017 RBC morphology finding Nom (Bld) NORM C+C Invalid Interpretation Code NORM C AND C [employer] Work Phone: [phone] Lab Report: T4 Total, Thyrox inon 01-02-2017 T4 mass conc 8.3 ug/dL Invalid Interpretation Code 4.5-12.1 [employer] Work Phone: [phone] Lab Report: Thyroid Stim Hor samara (TSH)on 01-02-2017 Thyrotropin Qn 1.18 u[iU]/mL Invalid Interpretation Code 0.358-3.74 [employer] Work Phone: [phone] Office Visit: [facility] 01-03-20 17 Documentation of current medications (procedure) Done Invalid Interpretation Code [employer] Work Phone: [phone] Fall risk assessment No Invalid Interpretation Code [employer] Work Phone: [phone] Protein mass conc Done Invalid Interpretation Code [employer] Work Phone: [phone] Replaced Document: (P) CBC W /Diff, Automatedon 01-02-2017 Absolute Neut 3.9 X10 3/UL Invalid Interpretation Code 2.0-7.7 [employer] Work Phone: [phone] Basophils/100 leukocytes 0.5 % Invalid Interpretation Code 0-1 [employer] Work Phone: [phone] Basophils/100 WBC (Bld) 0.5 % 0-1 [employer] Work Phone: [phone] Eosinophils/100 leukocytes 2.3 % Invalid Interpretation Code 0-5 [facility] Work Phone: [phone] Eosinophils/100 WBC (Bld) 2.3 % 0-5 [facility] Work Phone: [phone] Erythrocyte distribution width Auto Ratio (RBC) 46.3 fL High 35.1-43.9 [facility] Work Phone: [phone] Erythrocyte distribution width Ratio (RBC) 46.3 fL High 35.1-43.9 [facility] Work Phone: [phone] Erythrocyte distribution width Ratio (RBC) 13.2 % 11.6-14.6 [facility] Work Phone: [phone] Erythrocytes (RBC) 4.25 10*6/uL Low 4.6-6.[address] [facility] Work Phone: [phone] Hematocrit (HCT) 40.5 % Invalid Interpretation Code 40-54 [facility] Work Phone: [phone] Hematocrit Volume Fraction (Bld) 40.5 % 40-54 [facility] Work Phone: [phone] Hemoglobin (HGB) 13.6 g/dL Invalid Interpretation Code 13.0-16.5 [facility] Work Phone: [phone] Immature granulocytes #/vol (Bld) 0.200 % Invalid Interpretation Code 0.0-0.9 [facility] Work Phone: [phone] immature granulocytes, percentage of total cells, blood 0.200 % Invalid Interpretation Code 0.0-0.9 [facility] Work Phone: [phone] Immature granulocytes/100 WBC (Bld) 0.200 % Invalid Interpretation Code 0.0-0.9 [facility] Work Phone: [phone] Lymphocytes 1.40 X10 3/UL Invalid Interpretation Code 0.83-4.51 [facility] Work Phone: [phone] Lymphocytes #/vol (Bld) 1.40 X10 3/UL 0.83-4.51 [facility] Work Phone: [phone] Lymphocytes/100 leukocytes 21.9 % Invalid Interpretation Code 19-41 [facility] Work Phone: [phone] Lymphocytes/100 WBC (Bld) 21.9 % 19-41 [facility] Work Phone: [phone] MCH 32.0 pg Invalid Interpretation Code 27.0-32.0 [facility] Work [phone] MCH Entitic mass (RBC) 32.0 pg 27.0-32.0 [facility] Work [phone] MCHC 33.6 G/GL Invalid Interpretation Code 32-36 [facility] Work [phone] MCHC mass conc (RBC) 33.6 G/GL 32-[address] [facility] Work Phone: [phone] MCV 95.3 fL High 80-94 [facility] Work Phone: [phone] MCV Entitic volume (RBC) 95.3 fL High 80-94 [facility] Work Phone: [phone] Monocytes/100 leukocytes 14.1 % High 0-10 [facility] Work Phone: [phone] Monocytes/100 WBC (Bld) 14.1 % High 0-10 [facility] Work Phone: [phone] neutrophil count, blood 3.9 X10 3/UL Invalid Interpretation Code 2.0-7.7 [facility] Work Phone: [phone] Neutrophils #/vol (Bld) 3.9 X10 3/UL 2.0-7.7 [facility] Work Phone: [phone] Neutrophils Auto #/vol (Bld) 3.9 X10 3/UL Invalid Interpretation Code 2.0-7.7 [facility] Work Phone: [phone] Neutrophils/100 leukocytes 61.0 % Invalid Interpretation Code 47-70 [facility] Work Phone: [phone] Neutrophils/100 WBC (Bld) 61.0 % 47-70 [facility] Work Phone: [phone] Platelet mean volume Entitic volume (Bld) 9.3 fL 6.2-12.0 [facility] Work Phone: [phone] Platelets 226 10*3/mm3 Invalid Interpretation Code 150-450 [facility] Work Phone: [phone] Platelets #/vol (Bld) 226 10*3/mm3 150-450 [facility] Work Phone: [phone] PMV by Bowen 9.3 fL Invalid Interpretation Code 6.2-12.0 [facility] Work Phone: [phone] RBC #/vol (Bld) 4.25 10*6/uL Low 4.6-6.2 [facility] Work Phone: [phone] RDW SD 46.3 fL High 35.1-43.9 [facility] Work Phone: [phone] RDW-CA 13.2 % Invalid Interpretation Code 11.6-14.6 [facility] Work Phone: [phone] red blood cell distribution width, size density 46.3 fL High 35.1-43.9 [facility] Work Phone: [phone] WBC #/vol (Bld) 6.4 10*3/uL 4.4-11.0 [facility] Work Phone: [phone] WBC (Leukocytes) 6.4 10*3/uL Invalid Interpretation Code 4.4-11.0 [facility] Work Phone: [phone] Lab Report: Basic Metabolic Profile (BMP)on 11-15-2016 Anion gap 7 mmol/L Invalid Interpretation Code 5-15 [facility] Work Phone: [phone] Anion gap 4 molar conc 7 Invalid Interpretation Code 5-15 [facility] Work Phone: [phone] Anion gap molar conc 7 mmol/L 5-[address] [facility] Work Phone: [phone] Calcium mass conc 9.0 mg/dL Invalid Interpretation Code 8.5-10.1 [facility] Work Phone: [phone] Chloride molar conc 101 mmol/L Invalid Interpretation Code 98-107 [facility] Work Phone: [phone] CO2 29.0 mmol/L Invalid Interpretation Code 21.0-32.0 [facility] Work Phone: [phone] CO2 ppres (BldV) 29.0 mmol/L Invalid Interpretation Code 21.0-32.0 [employer] Work Phone: [phone] Creatinine mass conc 1.13 mg/dL Invalid Interpretation Code 0.70-1.30 [employer] Work Phone: [phone] eGFR (non-black) 82 mL/min/{1.73_m2} Invalid Interpretation Code >60 [employer] Work Phone: [phone] EST GFR - AA 82 mL/min Invalid Interpretation Code >60 [employer] Work Phone: [phone] GFR/1.73 sq M predicted among non-blacks MDRD vol rate/area (S/P/Bld) 68 mL/min/{1.73_m2} Invalid Interpretation Code >60 [employer] Work Phone: [phone] Glucose 106 mg/dL Invalid Interpretation Code 70-110 [employer] Work Phone: [phone] Glucose mass conc 106 mg/dL Invalid Interpretation Code 70-110 [employer] Work Phone: [phone] Potassium molar conc 4.1 mmol/L Invalid Interpretation Code 3.5-5.1 [employer] Work Phone: [phone] Sodium molar conc 137 mmol/L Invalid Interpretation Code 136-145 [employer] Work Phone: [phone] Urea nitrogen mass conc 31 mg/dL High 7-18 [employer] Work Phone: [phone] Urea nitrogen/Creatinine mass ratio 27.4 RATIO High 10-20 [employer] Work Phone: [phone] Office Visiton 07-04-2016 Documentation of current medications (procedure) Done Invalid Interpretation Code [employer] Work Phone: [phone] Protein mass conc Done [employer] Work Phone: [phone] Clinical Lists Update: Prelo arm maker 06-27-2016 Left ventricular Ejection fraction 50 % Invalid Interpretation Code [employer] Work Phone: [phone] Lab Report: CBC-Complete Blo od Cnt No Diffon 05-04-2016 Erythrocyte distribution width Ratio (RBC) 12.8 % 11.6-14.6 [employer] Work Phone: [phone] Erythrocyte distribution width Ratio (RBC) 42.1 fL 35.1-43.9 [facility] Work Phone: [phone] Erythrocytes (RBC) 4.62 10*6/uL Invalid Interpretation Code 4.6-6.2 [facility] Work Phone: [phone] Hematocrit (HCT) 42.7 % Invalid Interpretation Code 40-54 [facility] Work Phone: [phone] Hematocrit Volume Fraction (Bld) 42.7 % 40-54 [facility] Work Phone: [phone] Hemoglobin mass conc (Bld) 14.6 g/dL Invalid Interpretation Code 13.0-16.5 [facility] Work Phone: [phone] MCH 31.6 pg Invalid Interpretation Code 27.0-32.0 [facility] Work Phone: [phone] MCH Entitic mass (RBC) 31.6 pg 27.0-32.0 [facility] Work Phone: [phone] MCHC 34.2 G/GL Invalid Interpretation Code 32-36 [facility] Work Phone: [phone] MCHC mass conc (RBC) 34.2 G/GL 32-[address] [facility] Work Phone: [phone] MCV 92.4 fL Invalid Interpretation Code 80-94 [facility] Work Phone: [phone] MCV Entitic volume (RBC) 92.4 fL 80-94 [facility] Work Phone: [phone] Platelet mean volume Entitic volume (Bld) 9.5 fL 6.2-12.0 [facility] Work Phone: [phone] Platelets 226 10*3/mm3 Invalid Interpretation Code 150-450 [facility] Work Phone: [phone] Platelets #/vol (Bld) 226 10*3/mm3 150-450 [facility] Work Phone: [phone] PMV by Bowen 9.5 fL Invalid Interpretation Code 6.2-12.0 [facility] Work Phone: [phone] RBC #/vol (Bld) 4.62 10*6/uL 4.6-6.2 [facility] Work Phone: [phone] RDW-CA 12.8 % Invalid Interpretation Code 11.6-14.6 [facility] Work Phone: [phone] red blood cell distribution width, size density 42.1 fL Invalid Interpretation Code 35.1-43.9 [facility] Work Phone: [phone] WBC #/vol (Bld) 5.8 10*3/uL 4.4-11.0 [facility] Work Phone: [phone] WBC (Leukocytes) 5.8 10*3/uL Invalid Interpretation Code 4.4-11.0 [facility] Work Phone: [phone] Lab Report: [facility] 05-04-2016 Albumin mass conc 3.8 g/dL Invalid Interpretation Code 3.4-5.0 [facility] Work Phone: [phone] Albumin/Globulin mass ratio 1.1 {ratio} Invalid Interpretation Code 0.9-2.4 [facility] Work Phone: [phone] Alkaline phosphatase (ALP) 128 U/L High 45-117 [facility] Work Phone: [phone] ALP enzyme act/vol (Bld) 128 U/L High 45-117 [facility] Work Phone: [phone] ALT enzyme act/vol 20 U/L Invalid Interpretation Code 12-78 [facility] Work Phone: [phone] Anion gap molar conc 7 mmol/L 5-[address] [facility] Work Phone: [phone] AST enzyme act/vol 23 U/L Invalid Interpretation Code 15-37 [facility] Work Phone: [phone] Bilirubin mass conc 1.10 mg/dL High 0.20-1.00 [facility] Work Phone: [phone] Calcium mass conc 8.6 mg/dL 8.5-10.1 [facility] Work Phone: [phone] Chloride molar conc 106 mmol/L 98-107 [facility] Work Phone: [phone] CO2 ppres (BldV) 27.0 mmol/L 21.0-32.0 [facility] Work Phone: [phone] Creatinine mass conc 0.89 mg/dL 0.70-1.[address] [facility] [facility] Work Phone: [phone] EST GFR - AA 108 mL/min >60 [facility] Work Phone: [phone] GFR/1.73 sq M predicted among non-blacks MDRD vol rate/area (S/P/Bld) 89 mL/min/{1.73_m2} >60 [facility] Work Phone: [phone] Globulin 3.5 g/dL Invalid Interpretation Code 2.3-3.5 [facility] Work Phone: [phone] Globulin mass conc (S) 3.5 g/dL 2.3-3.5 [employer] [facility] Work Phone: [phone] Glucose mass conc 96 mg/dL 70-110 [employer] [facility] Work Phone: [phone] Potassium molar conc 3.8 mmol/L 3.5-5.[address] [facility] Work Phone: [phone] Protein mass conc 7.3 g/dL Invalid Interpretation Code 6.4-8.2 [employer] Work Phone: [phone] Sodium molar conc 140 mmol/L 136-145 [employer] Work Phone: [phone] Urea nitrogen mass conc 13 mg/dL 7-18 [employer] [facility] Work Phone: [phone] Urea nitrogen/Creatinine mass ratio 14.6 RATIO 10-20 [facility] Work Phone: [phone] Lab Report: Lipid Profileon 05-04-2016 Cholesterol in HDL mass conc 36 mg/dL Low [facility] Work Phone: [phone] Cholesterol in LDL mass conc 57 mg/dL Invalid Interpretation Code 0-130 [employer] Work Phone: [phone] Cholesterol mass conc 114 mg/dL Invalid Interpretation Code 200 [employer] Work Phone: [phone] Lipoprotein.pre-beta mass conc 21 mg/dL Invalid Interpretation Code 5-40 [employer] Work Phone: [phone] Triglyceride mass conc 107 mg/dL Invalid Interpretation Code [employer] Work Phone: [phone] Lab Report: T4 Free Directon 05-04-2016 T4 free mass conc 1.19 ng/dL Invalid Interpretation Code 0.76-1.46 [employer] Work Phone: [phone] Lab Report: Thyroid Stim Hor samara (TSH)on 05-04-2016 Thyrotropin Qn 0.97 u[iU]/mL 0.358-3.74 [employer] Work Phone: [phone] Replaced Document: Kendrick VENCES Observationson 11-30-2015 EKG QRS axis -113 deg Invalid Interpretation Code [employer] Work Phone: [phone] electrocardiogram interpretation Sinus Bradycardia -WPW pattern. ABNORMAL Invalid Interpretation Code [employer] Phone: [phone] GE use only - for [employer] import when terms are not otherwise specified 464 ms Invalid Interpretation Code [employer] Phone: [phone] Interpretation Sinus Bradycardia -WPW pattern. ABNORMAL Invalid Interpretation Code [employer] Phone: [phone] P [place] 107 deg Invalid Interpretation Code [employer] Phone: [phone] P wave axis, electrocardiogram 107 deg Invalid Interpretation Code [employer] Phone: [phone] IN Interval 184 ms Invalid Interpretation Code [employer] Work Phone: [phone] IN interval, electrocardiogram 184 ms Invalid Interpretation Code [employer] Work Phone: [phone] Pulse (Heart Rate) 55 /min Invalid Interpretation Code [employer] Work Phone: [phone] QRS axis, electrocardiogram -113 deg Invalid Interpretation Code [employer] Work Phone: [phone] QRS Duration 186 ms Invalid Interpretation Code [employer] Phone: [phone] QRS duration, electrocardiogram 186 ms Invalid Interpretation Code [employer] Phone: [phone] QT Interval new path ms Invalid Interpretation Code [employer] Phone: [phone] QT interval, electrocardiogram new path ms Invalid Interpretation Code [employer] Phone: [phone] QTc Aldana 464 ms Invalid Interpretation Code [employer] Work Phone: [phone] T [place] 90 deg Invalid Interpretation Code [facility] Work Phone: [phone] T wave axis, electrocardiogram 90 deg Invalid Interpretation Code [facility] Work Phone: [phone] Office Visiton 05-19-2015 Tobacco smoking status NHIS Never smoker Invalid Interpretation Code [facility] Work Phone: [phone] Tobacco use [facility] Never smoker Invalid Interpretation Code [facility] Work Phone: [phone] Lab Report: Liver Profileon 04-21-2015 Bilirubin.direct mass conc 0.19 mg/dL Invalid Interpretation Code 0.00-0.30 [facility] Work Phone: [phone] Lab Report: PSA,Total - Emma al Screenon 04-21-2015 prostate specific antigen (PSA) screening 0.86 ng/mL Invalid Interpretation Code 0.00-4.00 [facility] Work Phone: [phone] Protein mass conc 0.86 ng/mL 0.00-4.00 [facility] Work Phone: [phone] PSA,TOT SCREEN 0.86 ng/mL Invalid Interpretation Code 0.00-4.00 [facility] Work Phone: [phone] Lab Report: T4 Total, Thyrox inon 10-23-2014 T4 mass conc 10.2 ug/dL 4.5-12.1 [facility] Work Phone: [phone] Office Visiton 04-19-2014 cardiac risk group C Invalid Interpretation Code [facility] Work Phone: [phone] General cardiovascular disease 10Y risk [#] [place].D'Agostino N/A Invalid Interpretation Code [facility] Work Phone: [phone] Clinical Lists Update: Prelo arm maker 04-14-2014 Digoxin 1.00 ng/mL Invalid Interpretation Code [facility] Work Phone: [phone] Digoxin>12 hours p dose mass conc 1.00 ng/mL Invalid Interpretation Code [facility] Work Phone: [phone] Clinical Lists Update: Prelo arm maker 04-13-2014 Globulin 3.1 g/dL Invalid Interpretation Code [facility] Work Phone: [phone] Globulin mass conc (S) 3.1 g/dL [facility] Work Phone: [phone] Clinical Lists Update: Pacer Preloadon 04-30-2013 Left ventricular Ejection fraction 50 % Invalid Interpretation Code [facility] Work Phone: [phone] Lab Report: UAon 04-21-2013 Specific gravity Refractometry Relative Density (U) 1.015 Normal 1.002-1.030 [facility] Work Phone: [phone] Lab Report: PTon 04-16-2013 INR Coag RelTime (PPP) 1.1 {INR} Normal [facility] Work Phone: [phone] INR in blood by coagulation 1.1 {INR} Normal [facility] Work Phone: [phone] prothrombin time, actual/normal, ratio 13.3 SECONDS Normal 11.9-14.4 [facility] Work Phone: [phone] PTP 13.3 SECONDS Normal 11.9-14.4 [facility] Work Phone: [phone] Replaced Document: Kendrick E CG Observationson 04-10-2013 Pulse (Heart Rate) 453 ms Invalid Interpretation Code [facility] Work Phone: [phone] Clinical Lists Update: Prelo arm maker 04-08-2012 Glucose 90 mg/dL Invalid Interpretation Code [facility] Work Phone: [phone] Glucose fasting mass conc 90 mg/dL [facility] Work Phone: [phone] Glucose fasting mass conc (BldV) 90 mg/dL Invalid Interpretation Code [facility] Work Phone: [phone] Glucose mass conc 90 mg/dL Invalid Interpretation Code [facility] Work Phone: [phone] Vital Signs Date Time Vital Sign Value Performing Clinician Reinai dago 01-16-2022 14:52-0400 Body height 175.3 cm James Bernal APRN.SOCIAL SERVICE DIRECTOR Work Phone: [facility] 01-16-2022 14:52-0400 Body weight 67.41 kg James Bernal APRN.CNP Work Phone: [facility] 01-16-2022 14:52-0400 SaO2% (BldA) [Mass fraction] 97 % James Bernal APRN.CNP Work Phone: [facility] 09-20-2021 10:03-0400 Body height 175.3 cm Willie Matthews MD Work Phone: [facility] 09-20-2021 10:03-0400 Body weight 71.22 kg Willie Matthews MD Work Phone: [facility] 09-20-2021 10:03-0400 Diastolic blood pressure 70 mm[Hg] Willie Matthews MD Work Phone: [facility] 09-20-2021 10:03-0400 Heart rate 55 /min Willie Matthews MD Work Phone: [facility] 09-20-2021 10:03-0400 SaO2% (BldA) [Mass fraction] 98 % Willie Matthews MD Work Phone: [facility] 09-20-2021 10:03-0400 Systolic blood pressure 141 mm[Hg] Willie Matthews MD Work Phone: [facility] 02-12-2017 11:51-0400 BMI (Body Mass Index) 22.89 kg/m2 [facility] Work Phone: 02-12-2017 11:51-0400 BP Diastolic 60 mm[Hg] Valarieambar Duffy [facility] Work Phone: 02-12-2017 11:51-0400 BP Systolic 98 mm[Hg] Valarieambar Duffy [facility] Work Phone: 02-12-2017 11:51-0400 Weight 70.31 kg Valarieambar Duffy [facility] Work Phone: 01-02-2017 13:22-0400 BMI (Body Mass Index) 22.93 kg/m2 [facility] Work Phone: 01-02-2017 13:22-0400 BP Diastolic 58 mm[Hg] [facility] Work Phone: 01-02-2017 13:22-0400 BP Systolic 98 mm[Hg] [facility] Work Phone: 01-02-2017 13:22-0400 Height 175.26 cm [facility] Work Phone: 01-02-2017 13:22-0400 Pulse (Heart Rate) 56 /min [facility] Work Phone: 01-02-2017 13:22-0400 Respiratory Rate 20 /min [facility] Work Phone: 01-02-2017 13:22-0400 Weight 70.45 kg [facility] Work Phone: 07-04-2016 14:17-0500 BMI (Body Mass Index) 23.92 kg/m2 [facility] Work Phone: 07-04-2016 14:17-0500 BP Diastolic 60 mm[Hg] [facility] Work Phone: 07-04-2016 14:17-0500 BP Systolic 118 mm[Hg] Jena Santiago RN [facility] Work Phone: 07-04-2016 14:17-0500 Pulse (Heart Rate) 60 /min Jena Santiago RN [facility] Work Phone: 07-04-2016 14:17-0500 Respiratory Rate 16 /min [facility] Work Phone: 07-04-2016 14:17-0500 Weight 73.48 kg [facility] Work Phone: 11-30-2015 09:39-0400 Heart rate 55 /min [facility] Work Phone: 11-30-2015 09:29-0400 BSA (Body Surface Area) 1.9 m2 [facility] Work Phone: 04-10-2013 14:36-0500 Heart rate 453 ms [facility] Work Phone: 08-23-2011 10:46-0400 Height 175.26 cm Jena Santiago RN [facility] Work Phone: Encounters Encounter Date Encounter Type Care Provider Facility Start: 11-15-2023 Refill Willie kaplan MD Work Phone: Neurology Comment on above: Refill Request Start: 09-02-2023 Refill Willie kaplan MD Work Phone: Neurology Comment on above: Refill Request Start: 09-19-2022 End: 09-19-2022 ambulatory [facility] Facility:[facility] Start: 08-27-2022 Telephone encounter Willie sagastume MD Work Phone: Neurological Restorationist Comment on above: Symptom Management Start: 01-22-2022 Refill James zavala SEGMENT PRODUCER.SOCIAL SERVICE DIRECTOR Work Phone: Neurological Restorationist Comment on above: Refill Request Start: 01-16-2022 End: 01-16-2022 ambulatory JAMES BERNAL Facility:[facility] Start: 01-16-2022 End: 01-16-2022 Patient encounter procedure James Bernal SEGMENT PRODUCER.SOCIAL SERVICE DIRECTOR Work Phone: Neurology Comment on above: Parkinson disease (H CC) (Primary Dx) Start: 09-20-2021 End: 09-20-2021 ambulatory WILLIE MATTHEWS Facility:[facility] Start: 09-20-2021 End: 09-20-2021 Patient encounter procedure Willie Matthews MD Work Phone: Neurology Comment on above: Parkinson disease (H CC) (Primary Dx); RBD (REM behavioral disorder); Gait instability Procedures Date Procedure Procedure Detail Performing Clinician Start: 02-12-2017 End: 02-12-2017 Follow Up Appt Other Karen Jorgensen PA-C Work Phone: Start: 01-23-2017 End: 02-01-2017 Follow Up Appt 3 months Aaron Perez MD Start: 01-23-2017 End: 02-01-2017 [facility] Aaron Perez MD Start: 01-23-2017 End: 01-23-2017 Prgrmg eval implantable in person multi lead dfb Aaron Perez MD Start: 01-23-2017 End: 01-23-2017 Icd device progr eval, mult Aaron tolentino MD Start: 01-02-2017 End: 01-02-2017 *CBC with Differential Karen Jorgensen PA-C Work Phone: Start: 01-02-2017 End: 01-02-2017 Follow Up Appt 6 weeks Karen Jorgenesn PA-C Work Phone: Start: 01-02-2017 End: 01-02-2017 CLARISSA Jorgensen PA-C Work Phone: Start: 01-02-2017 End: 01-09-2017 Nuclear stress test -Philippe Jorgensen PA-C Work Phone: Start: 01-02-2017 End: [...] PA-C Work Phone: Start: 01-02-2017 End: 01-02-2017 CLARISSA Jorgensen PA-C Work Phone: Start: 01-02-2017 End: 01-09-2017 Nuclear stress test -Philippe Jorgensen PA-C Work Phone: Start: 01-02-2017 End: [...] 07-04-2016 End: 07-04-2016 Icd device progr eval, carleyt Aaron tolentino MD Start: 07-04-2016 End: 07-04-2016 [...] PA-C Work Phone: Start: 11-30-2015 End: 11-30-2015 [facility] Karen Jorgensen PA-C Work Phone: Start: 11-30-2015 End: 11-30-2015 Electrocardiogram, complete Karen Jorgensen PA-C Work Phone: Start: 11-30-2015 End: 11-30-2015 Follow Up Appt 6 months Karen Jorgensen PA-C Work Phone: Start: 11-30-2015 End: 11-30-2015 PF Karen Jorgensen PA-C Work Phone: Start: 10-21-2015 [...] Aaron Perez MD Start: 05-19-2015 End: 05-19-2015 [facility] Aaron Perez MD Start: 05-19-2015 End: 05-19-2015 Follow Up Appt 6 months Aaron Perez MD Start: 05-19-2015 End: 05-19-2015 [facility] Aaron Perez MD Start: 04-18-2015 End: 04-21-2015 [...] Start: 10-19-2014 End: 10-27-2014 Nuclear stress test -Lexiscan Karen Jorgensen PA-C Work Phone: Start: 10-19-2014 [...] Start: 10-19-2014 End: 10-27-2014 Nuclear stress test -Lexiscan Karen Jorgensen PA-C Work Phone: Start: 10-19-2014 [...] 05-17-2014 End: 05-17-2014 Icd device progr eval, carleyt Aaron tolentino MD Start: 05-17-2014 End: 10-05-2014 [...] End: 04-19-2014 MMM Aaron Perez MD Start: 04-05-2014 End: 10-05-2014 [...] PA-C Work Phone: Start: 11-11-2013 End: [facility]05-[facility] Work Phone: Start: 11-11-2013 End: 11-11-2013 Prgrmg eval implantable in person multi lead dfb Karen Jorgensen PA-C Work Phone: Start: 11-11-2013 End: 10-05-2014 Follow Up Appt 3 months Karen Jorgensen PA-C Work Phone: Start: 11-11-2013 End: 11-11-2013 Icd device progr eval, mult Karen Jorgensen PA-C Work Phone: Start: 11-11-2013 End: 10-05-2014 Pacer [facility] Karen Jorgensen PA-C Work Phone: Start: 10-12-2013 [...] End: 09-26-2012 PFM Aaron Perez MD Start: 04-05-2012 End: 04-10-2012 [...] 10-01-2013 Follow Up Appt 6 months Aaron Peerz MD Start: 02-25-2012 End: 10-01-2013 Nuclear stress [...] Treatment Date Care Activity Detail Author Start: 01-05-2024 Influenza vaccination [facility] Start: 05-06-2023 Advance Directive Discussion Advance Directive Discussion [facility] Start: 05-06-2023 Behavioral Health Screening Behavioral Health Screening [facility] Start: 01-04-2023 Covid-19 Vaccine ( season) Covid-19 Vaccine ( season) [facility] Start: 01-04-2023 Influenza vaccination INFLUENZA (Season Ended) [facility] Start: 05-06-2022 ADVANCE DIRECTIVE DISCUSSION ADVANCE DIRECTIVE DISCUSSION [facility] [facility] Start: 05-06-2022 DEPRESSION ASSESSMENT DEPRESSION ASSESSMENT [facility] Start: 01-04-2022 Influenza vaccination [facility] Start: 07-07-2021 COVID-19 VACCINE (4 - Booster for Pfizer series) COVID-19 VACCINE (4 - Booster for Pfizer series) [facility] Start: 05-06-2021 ADVANCE DIRECTIVE DISCUSSION ADVANCE DIRECTIVE DISCUSSION [facility] Start: 05-04-2021 COVID-19 VACCINE (4 - Booster for Pfizer series) COVID-19 VACCINE (4 - Booster for Pfizer series) [facility] Start: 07-10-2017 End: 07-10-2017 Appointment Appointment [facility] Work Phone: Start: 07-03-2017 End: 07-03-2017 Appointment Appointment [facility] Work Phone: Start: 05-08-2017 End: 05-08-2017 Appointment Appointment [facility] Work Phone: Start: 02-12-2017 End: 02-12-2017 Appointment Appointment [facility] Work Phone: Start: 02-12-2017 End: 02-12-2017 Follow Up Appt Other Follow Up Appt Other [facility] Work Phone: Start: 01-23-2017 End: 01-23-2017 Appointment Appointment [facility] Work Phone: Start: 01-23-2017 End: 02-01-2017 Follow Up Appt 3 months Follow Up Appt 3 months [facility] Work Phone: Start: 01-23-2017 End: 02-01-2017 Pacer Clinic [facility] Work Phone: Start: 01-23-2017 End: 01-23-2017 Follow Up Appt 3 months Follow Up Appt 3 months [facility] Work Phone: Start: 01-23-2017 End: 01-23-2017 Pacer Clinic Pacer Clinic [facility] Work Phone: Start: 01-02-2017 End: 01-02-2017 *CBC with Differential *CBC with Differential [facility] Work Phone: Start: 01-02-2017 End: 01-02-2017 Follow Up Appt 6 weeks Follow Up Appt 6 weeks [facility] Work Phone: Start: 01-02-2017 End: 01-02-2017 MMM MMM [facility] Work Phone: Start: 01-02-2017 End: 01-02-2017 Nuclear stress test -Lexiscan Nuclear stress test -Lexiscan [facility] Work Phone: Start: 01-02-2017 End: 01-02-2017 Thyroid stimulating hormone (TSH) *TSH [facility] Work Phone: Start: 01-02-2017 End: 01-02-2017 Thyroxine (T4) *T4 (Total) [facility] Work Phone: Start: 01-02-2017 End: 01-02-2017 Appointment Appointment [facility] Work Phone: Start: 01-02-2017 End: 01-02-2017 *CBC with Differential *CBC with Differential [facility] Work Phone: Start: 01-02-2017 End: 01-02-2017 Follow Up Appt 6 weeks Follow Up Appt 6 weeks [facility] Work Phone: Start: 01-02-2017 End: 01-02-2017 MMM MMM [facility] Work Phone: Start: 01-02-2017 End: 01-02-2017 Nuclear stress test -Lexiscan Nuclear stress test -Lexiscan [facility] Work Phone: Start: 01-02-2017 End: 01-02-2017 Thyroid stimulating hormone (TSH) *TSH [facility] Work Phone: Start: 01-02-2017 End: 01-02-2017 Thyroxine (T4) *T4 (Total) [facility] Work Phone: Start: 11-15-2016 End: 11-16-2016 *BMP *BMP [facility] Work Phone: Start: 11-15-2016 End: 11-16-2016 *BMP *BMP [facility] Work Phone: Start: 10-17-2016 End: 10-17-2016 Appointment [...] 07-04-2016 End: 07-04-2016 Device Interrogation Device Interrogation [facility] Work Phone: Start: 07-04-2016 End: 12-25-2016 Follow Up Appt 3 months Follow Up Appt 3 months [facility] Work Phone: Start: 07-04-2016 End: 07-04-2016 Follow Up Appt 6 months Follow Up Appt 6 months [facility] Work Phone: Start: 07-04-2016 End: 07-04-2016 MMM MMM [facility] Work Phone: Start: 07-04-2016 End: 12-25-2016 Pacer Clinic Pacer Clinic [facility] Work Phone: Start: 07-04-2016 End: 07-04-2016 Device Interrogation Device Interrogation [facility] Work Phone: Start: 07-04-2016 End: 12-25-2016 Follow Up Appt 3 months Follow Up Appt 3 months [facility] Work Phone: Start: 07-04-2016 End: 07-04-2016 Follow Up Appt 6 months Follow Up Appt 6 months [facility] Work Phone: Start: 07-04-2016 End: 07-04-2016 MMM MMM [facility] Work Phone: Start: 07-04-2016 End: [...] 3 months Follow Up Appt 3 months [facility] Work Phone: Start: 03-19-2016 End: 07-04-2016 Pacer Clinic Pacer Clinic [facility] Work Phone: Start: 12-12-2015 End: 12-25-2016 Follow Up Appt 3 months Follow Up Appt 3 months [facility] Work Phone: Start: 12-12-2015 End: 12-25-2016 Pacer Clinic Pacer Clinic [facility] Work Phone: Start: 12-12-2015 End: 12-25-2016 Follow Up Appt 3 months Follow Up Appt 3 months [facility] Work Phone: Start: 12-12-2015 End: 12-25-2016 Pacer Clinic Pacer Clinic [facility] Work Phone: Start: 11-30-2015 End: 11-30-2015 Ecg routine ecg w/least 12 lds w/i&r EKG (In office) [facility] Work Phone: Start: 11-30-2015 End: 11-30-2015 Follow Up Appt 6 months Follow Up Appt 6 months [facility] Work Phone: Start: 11-30-2015 End: 11-30-2015 PFM PFM [facility] Work Phone: Start: 11-30-2015 End: 11-30-2015 Electrocardiogram, complete EKG (In office) [facility] Work Phone: Start: 11-30-2015 End: 11-30-2015 Follow Up Appt 6 months Follow Up Appt 6 months [facility] Work Phone: Start: 11-30-2015 End: 11-30-2015 PFM PFM [facility] Work Phone: Start: 10-21-2015 End: [...] 3 months Follow Up Appt 3 months [facility] Work Phone: Start: 09-12-2015 End: 11-23-2015 Pacer Clinic Pacer Clinic [facility] Work Phone: Start: 09-12-2015 End: 11-23-2015 Follow Up Appt 3 months Follow Up Appt 3 months [facility] Work Phone: Start: 09-12-2015 End: 11-23-2015 Pacer Clinic Pacer Clinic [facility] Work Phone: Start: 06-13-2015 End: 11-23-2015 Follow Up Appt 3 months Follow Up Appt 3 months [facility] Work Phone: Start: 06-13-2015 End: 11-23-2015 Pacer Clinic Pacer Clinic [facility] Work Phone: Start: 06-13-2015 End: 11-23-2015 Follow Up Appt 3 months Follow Up Appt 3 months [facility] Work Phone: Start: 06-13-2015 End: 11-23-2015 Pacer Clinic Pacer Clinic [facility] Work Phone: Start: 05-19-2015 End: 05-19-2015 Follow Up Appt 6 months Follow Up Appt 6 months [facility] Work Phone: Start: 05-19-2015 End: 05-19-2015 MMM MMM [facility] Work Phone: Start: 05-19-2015 End: 05-19-2015 Follow Up Appt 6 months Follow Up Appt 6 months [facility] Work Phone: Start: 05-19-2015 End: 05-19-2015 MMM MMM [facility] Work Phone: Start: 04-18-2015 End: 04-21-2015 *Hepatic Function Panel *Hepatic Function Panel [facility] Work Phone: Start: 04-18-2015 End: 04-21-2015 Lipid panel [AGGREGATE] *Lipid Profile CC PCP [facility] Work Phone: Start: 04-18-2015 End: 04-21-2015 *Hepatic Function Panel *Hepatic Function Panel [facility] Work Phone: Start: 04-18-2015 End: 04-21-2015 Lipid panel [AGGREGATE] *Lipid Profile CC PCP [facility] Work Phone: Start: 03-07-2015 End: 11-23-2015 Follow Up Appt 3 months Follow Up Appt 3 months [facility] Work Phone: Start: 03-07-2015 End: 11-23-2015 Pacer Clinic Pacer Clinic [facility] Work Phone: Start: 03-07-2015 End: 11-23-2015 Follow Up Appt 3 months Follow Up Appt 3 months [facility] Work Phone: Start: 03-07-2015 End: 11-23-2015 Pacer Clinic Pacer Clinic [facility] Work Phone: Start: 11-19-2014 End: 11-23-2015 Follow Up Appt 3 months Follow Up Appt 3 months [facility] Work Phone: Start: 11-19-2014 End: 11-23-2015 Pacer Clinic Pacer Clinic [facility] Work Phone: Start: 11-19-2014 End: 11-23-2015 Follow Up Appt 3 months Follow Up Appt 3 months [facility] Work Phone: Start: 11-19-2014 End: 11-23-2015 Pacer Clinic Pacer Clinic [facility] Work Phone: Start: 10-19-2014 End: 10-25-2014 CBC W Auto Differential panel - Blood *CBC without Diff [facility] Work Phone: Start: 10-19-2014 End: 10-19-2014 Ecg routine ecg w/least 12 lds w/i&r EKG (In office) [facility] Work Phone: Start: 10-19-2014 End: 10-19-2014 Follow Up Appt 6 months Follow Up Appt 6 months [facility] Work Phone: Start: 10-19-2014 End: 10-19-2014 Nuclear stress test -Lexiscan Nuclear stress test -Lexiscan [facility] Work Phone: Start: 10-19-2014 End: 10-19-2014 PFM PFM [facility] Work Phone: Start: 10-19-2014 End: 10-25-2014 Thyroid stimulating hormone (TSH) *TSH [facility] Work Phone: Start: 10-19-2014 End: 10-25-2014 Thyroxine (T4) *T4 (Total) [facility] Work Phone: Start: 10-19-2014 End: 10-25-2014 CBC W Auto Differential panel - Blood *CBC without Diff [facility] Work Phone: Start: 10-19-2014 End: 10-19-2014 Electrocardiogram, complete EKG (In office) [facility] Work Phone: Start: 10-19-2014 End: 10-19-2014 Follow Up Appt 6 months Follow Up Appt 6 months [facility] Work Phone: Start: 10-19-2014 End: 10-19-2014 Nuclear stress test -Lexiscan Nuclear stress test -Lexiscan [facility] Work Phone: Start: 10-19-2014 End: 10-19-2014 PFM PFM [facility] Work Phone: Start: 10-19-2014 End: 10-25-2014 Thyroid stimulating hormone (TSH) *TSH [facility] Work Phone: Start: 10-19-2014 End: 10-25-2014 Thyroxine (T4) *T4 (Total) [facility] Work Phone: Start: 08-16-2014 End: 10-05-2014 Follow Up Appt 3 months Follow Up Appt 3 months [facility] Work Phone: Start: 08-16-2014 End: 10-05-2014 Pacer Clinic Pacer Clinic [facility] Work Phone: Start: 08-16-2014 End: 10-05-2014 Follow Up Appt 3 months Follow Up Appt 3 months [facility] Work Phone: Start: 08-16-2014 End: 10-05-2014 Pacer Clinic Pacer Clinic [facility] Work Phone: Start: 05-17-2014 End: 10-05-2014 Follow Up Appt 3 months Follow Up Appt 3 months [facility] Work Phone: Start: 05-17-2014 End: 10-05-2014 Pacer Clinic Pacer Clinic [facility] Work Phone: Start: 05-17-2014 End: 10-05-2014 Follow Up Appt 3 months Follow Up Appt 3 months [facility] Work Phone: Start: 05-17-2014 End: 10-05-2014 Pacer Clinic Pacer Clinic [facility] Work Phone: Start: 04-19-2014 End: 10-15-2014 *Hepatic Function Panel *Hepatic Function Panel [facility] Work Phone: Start: 04-19-2014 [...] Lipid panel [AGGREGATE] *Lipid Profile CC PCP [facility] Work Phone: Start: 04-19-2014 End: 04-19-2014 MMM MMM [facility] Work Phone: Start: 04-05-2014 End: 10-05-2014 *Hepatic Function Panel *Hepatic Function Panel [facility] Work Phone: Start: 04-05-2014 End: 10-05-2014 Lipid panel [AGGREGATE] *Lipid Profile CC PCP [facility] Work Phone: Start: 04-05-2014 End: 10-05-2014 *Hepatic Function Panel *Hepatic Function Panel [facility] Work Phone: Start: 04-05-2014 End: 10-05-2014 Lipid panel [AGGREGATE] *Lipid Profile CC PCP [facility] Work Phone: Start: 02-11-2014 End: 10-05-2014 Follow Up Appt 3 months Follow Up Appt 3 months [facility] Work Phone: Start: 02-11-2014 End: 10-05-2014 Pacer Clinic Pacer Clinic [facility] Work Phone: Start: 02-11-2014 End: 10-05-2014 Follow Up Appt 3 months Follow Up Appt 3 months [facility] Work Phone: Start: 02-11-2014 End: 10-05-2014 Pacer Clinic Pacer Clinic [facility] Work Phone: Start: 11-11-2013 End: 10-05-2014 Follow Up Appt 3 months Follow Up Appt 3 months [facility] Work Phone: Start: 11-11-2013 End: 10-05-2014 Pacer Clinic Pacer Clinic [facility] Work Phone: Start: 11-11-2013 End: 10-05-2014 Follow Up Appt 3 months Follow Up Appt 3 months [facility] Work Phone: Start: 11-11-2013 End: 10-05-2014 Pacer Clinic Pacer Clinic [facility] Work Phone: Start: 10-12-2013 End: 10-12-2013 *Hepatic Function Panel *Hepatic Function Panel [facility] Work Phone: Start: 10-12-2013 End: 10-12-2013 Follow Up Appt 6 months Follow Up Appt 6 months [facility] Work Phone: Start: 10-12-2013 End: 10-12-2013 Lipid panel [AGGREGATE] *Lipid Profile CC PCP [facility] Work Phone: Start: 10-12-2013 End: 10-12-2013 PFM PFM [facility] Work Phone: Start: 10-12-2013 End: 10-12-2013 *Hepatic Function Panel *Hepatic Function Panel [facility] Work Phone: Start: 10-12-2013 End: 10-12-2013 Follow Up Appt 6 months Follow Up Appt 6 months [facility] Work Phone: Start: 10-12-2013 End: 10-12-2013 Lipid panel [AGGREGATE] *Lipid Profile CC PCP [facility] Work Phone: Start: 10-12-2013 End: 10-12-2013 PFM PFM [facility] Work Phone: Start: 10-04-2013 End: 10-13-2013 *Hepatic Function Panel *Hepatic Function Panel [facility] Work Phone: Start: 10-04-2013 End: 10-13-2013 Lipid panel [AGGREGATE] *Lipid Profile CC PCP [facility] Work Phone: Start: 10-04-2013 End: 10-13-2013 *Hepatic Function Panel *Hepatic Function Panel [facility] Work Phone: Start: 10-04-2013 End: 10-13-2013 Lipid panel [AGGREGATE] *Lipid Profile CC PCP [facility] Work Phone: Start: 08-05-2013 End: 10-01-2013 Follow Up Appt 2 months Follow Up Appt 2 months [facility] Work Phone: Start: 08-05-2013 End: 10-01-2013 Pacer Clinic Pacer Clinic [facility] Work Phone: Start: 08-05-2013 End: 10-01-2013 Follow Up Appt 2 months Follow Up Appt 2 months [facility] Work Phone: Start: 08-05-2013 End: 10-01-2013 Pacer Clinic Pacer Clinic [facility] Work Phone: Start: 05-04-2013 End: 10-01-2013 Follow Up Appt 3 months Follow Up Appt 3 months [facility] Work Phone: Start: 05-04-2013 End: 10-01-2013 Pacer Clinic Pacer Clinic [facility] Work Phone: Start: 05-04-2013 End: [...] Phone: Start: 04-10-2013 End: 10-05-2014 *BMP *BMP [facility] Work Phone: Start: 04-10-2013 End: 10-05-2014 *Hepatic Function Panel *Hepatic Function Panel [facility] Work Phone: Start: 04-10-2013 End: 10-05-2014 *UA - Urinalysis w/o Micro *UA - Urinalysis w/o Micro [facility] Work Phone: Start: 04-10-2013 End: 10-05-2014 CBC W Auto Differential panel - Blood *CBC without Diff [facility] Work Phone: Start: 04-10-2013 End: 10-05-2014 Chest x-ray X-Ray, Chest, PA & Lateral [facility] Work Phone: Start: 04-10-2013 End: 04-20-2013 Ecg routine ecg w/least 12 lds w/i&r EKG (In office) [facility] Work Phone: Start: 04-10-2013 End: 10-01-2013 Follow Up Appt 3 months Follow Up Appt 3 months [facility] Work Phone: Start: 04-10-2013 End: 04-10-2013 Follow Up Appt 6 months Follow Up Appt 6 months [facility] Work Phone: Start: 04-10-2013 End: 10-05-2014 INR Coag RelTime (PPP) *PT/INR [facility] Work Phone: Start: 04-10-2013 End: 10-05-2014 Lipid panel [AGGREGATE] *Lipid Profile CC PCP [facility] Work Phone: Start: 04-10-2013 End: 04-10-2013 MMM MMM [facility] Work Phone: Start: 04-10-2013 End: 04-10-2013 Pacemaker Generator Change Pacemaker Generator [facility] Work Phone: Start: 04-10-2013 End: 10-01-2013 Pacer Clinic Pacer Clinic [facility] Work Phone: Start: 04-10-2013 End: 10-05-2014 *BMP *BMP [facility] Work Phone: Start: 04-10-2013 End: 10-05-2014 *Hepatic Function Panel *Hepatic Function Panel [facility] Work Phone: Start: 04-10-2013 End: 10-05-2014 *UA - Urinalysis w/o Micro *UA - Urinalysis w/o Micro [facility] Work Phone: Start: 04-10-2013 End: 10-05-2014 CBC W Auto Differential panel - Blood *CBC without Diff [facility] Work Phone: Start: 04-10-2013 End: 10-05-2014 Chest x-ray X-Ray, Chest, PA & Lateral [facility] Work Phone: Start: 04-10-2013 End: 10-05-2014 Coagulation factor induced.INR assay in platelet poor plasma *PT/INR [facility] Work Phone: Start: 04-10-2013 End: 04-20-2013 Electrocardiogram, complete EKG (In office) [facility] Work Phone: Start: 04-10-2013 End: 10-01-2013 Follow Up Appt 3 months Follow Up Appt 3 months [facility] Work Phone: Start: 04-10-2013 End: 04-10-2013 Follow Up Appt 6 months Follow Up Appt 6 months [facility] Work Phone: Start: 04-10-2013 End: 10-05-2014 Lipid panel [AGGREGATE] *Lipid Profile CC PCP [facility] Work Phone: Start: 04-10-2013 End: 04-10-2013 MMM MMM [facility] Work Phone: Start: 04-10-2013 End: 04-10-2013 Pacemaker Generator Change Pacemaker Generator Change [facility] Work Phone: Start: 04-10-2013 End: 10-01-2013 Pacer Clinic Pacer Clinic [facility] Work Phone: Start: 12-31-2012 End: 10-01-2013 Follow Up Appt 3 months Follow Up Appt 3 months [facility] Work Phone: Start: 12-31-2012 End: 10-01-2013 Pacer Clinic Pacer Clinic [facility] Work Phone: Start: 12-31-2012 End: 10-01-2013 Follow Up Appt 3 months Follow Up Appt 3 months [facility] Work Phone: Start: 12-31-2012 End: 10-01-2013 Pacer Clinic Pacer Clinic [facility] Work Phone: Start: 10-04-2012 End: 10-05-2014 *Hepatic Function Panel *Hepatic Function Panel [facility] Work Phone: Start: 10-04-2012 End: 10-05-2014 Lipid panel [AGGREGATE] *Lipid Profile [facility] Work Phone: Start: 10-04-2012 End: 10-05-2014 *Hepatic Function Panel *Hepatic Function Panel [facility] Work Phone: Start: 10-04-2012 End: 10-05-2014 Lipid panel [AGGREGATE] *Lipid Profile [facility] Work Phone: Start: 09-26-2012 End: 09-26-2012 Echocardiography Echocardiogram (limited) [facility] Work Phone: Start: 09-26-2012 End: 09-26-2012 Follow Up Appt 3 months Follow Up Appt 3 months [facility] Work Phone: Start: 09-26-2012 End: 09-26-2012 Follow Up Appt 6 months Follow Up Appt 6 months [facility] Work Phone: Start: 09-26-2012 [...] 09-26-2012 End: 09-26-2012 Pacer Clinic Pacer Clinic [facility] Work Phone: Start: 09-26-2012 End: 09-26-2012 PFM PFM [facility] Work Phone: Start: 04-05-2012 End: 11-08-2011 *Hepatic Function Panel *Hepatic Function Panel [facility] Work Phone: Start: 04-05-2012 End: 11-08-2011 Lipid panel [AGGREGATE] *Lipid Profile [facility] Work Phone: Start: 04-05-2012 End: 11-08-2011 *Hepatic Function Panel *Hepatic Function Panel [facility] Work Phone: Start: 04-05-2012 End: 11-08-2011 Lipid panel [AGGREGATE] *Lipid Profile [facility] Work Phone: Start: 02-25-2012 End: 10-01-2013 Follow Up Appt 6 months Follow Up Appt 6 months [facility] Work Phone: Start: 02-25-2012 End: 02-25-2012 Nuclear stress test -adenosine Nuclear stress test -adenosine [facility] Work Phone: Start: 02-25-2012 End: 10-01-2013 Follow Up Appt 6 months Follow Up Appt 6 months [facility] Work Phone: Start: 02-25-2012 [...] Start: 08-23-2011 End: 08-23-2011 Echocardiography Echocardiogram (complete) [facility] Work Phone: Start: 08-23-2011 End: 10-01-2013 Follow Up Appt 6 months Follow Up Appt 6 months [facility] Work Phone: Start: 08-23-2011 End: 08-23-2011 Echocardiography Echocardiogram (complete) [facility] Work Phone: Start: 08-23-2011 End: 10-01-2013 Follow Up Appt 6 months Follow Up Appt 6 months [facility] Work Phone: Start: 09-24-2008 PNEUMOCOCCAL: 65+ (1 - PCV) PNEUMOCOCCAL: 65+ (1 - PCV) [facility] Start: 09-24-2008 PNEUMOVAX AGE 65 AND OVER WITH 5YR LOOKBACK (#1) PNEUMOVAX AGE 65 AND OVER WITH 5YR LOOKBACK (#1) [facility] Start: 2003 RSV Vaccine (1 - 1-dose 60+ series) RSV Vaccine (1 - 1-dose 60+ series) [facility] Start: 09-24-1993 SHINGRIX VACCINE (1 of 2) SHINGRIX VACCINE (1 of 2) [facility] Start: 09-24-1988 DIABETES SCREEN DIABETES SCREEN [facility] Start: 09-24-1988 Diabetes Screening Diabetes Screening [facility] Start: 09-24-1962 Urine microalbumin profile [facility] Start: 09-24-1961 Anxiety Screening Anxiety Screening [facility] Start: 09-24-1961 Depression Screening Depression Screening [facility] Start: 09-24-1961 HEPATITIS C SCREENING HEPATITIS C SCREENING [facility] Start: 1957 Adult depression screening assessment DEPRESSION SCREENING [facility] Patient Education HYPERLIPIDEMIA , HYPERTENSION [facility] Work Phone: [facility] Immunizations Immunization Date Immunization Notes Care Provider Fa narcisa 05-11-2022 influenza virus vacc ine, unspecified formulation Willie Matthews MD Work Phone: [facility] Payers Date Payer Category Payer Medicare [employer] MEDICARE [employer] MEDICARE PPO [id number] 2019-Present [phone] [id number] [place] [address] PPO [id number] 2019 Medicare [employer]NA MEDICARE [employer] MEDICARE PPO [id number] 2019-Present [phone] [address] [address] [place] [address] PPO [id number] 2019 Medicare [id number] Social History Date Type Detail Facility Start: 01-16-2022 Tobacco smoking stat us GAIS Never smoked tobacco [facility] Start: 09-20-2021 End: 09-19-2022 Alcohol intake Current non-drinker of alcohol (finding) [facility] Start: 1945 Sex Assigned At Not on file [facility] Start: 09-10-2021 End: 01-16-2022 Exposure to SARS-CoV-2 (event) Not sure [facility] Start: 01-16-2022 Tobacco use and exposure Smoke less tobacco non-user [facility] Start: 09-19-2022 History of Social function [facility] Start: 09-19-2022 Tobacco use panel [facility] National Score (1-10 0), lower number is lower risk 54 [facility] Clinical Notes 09-20-2021 to 11-18-2023 Telephone Encounter - Willie Matthews MD - 11/18/2023 11:52 AM EDTTelephone Encounter - Willie Matthews MD - 11/18/2023 11:52 AM EDTTelephone Encounter - Edelmira Farr - 09/16/2023 11:42 AM EDT Note Date & Type Note Facility 11-18-2023 Telephone encounter Note Please advise patient he is overdue for follow-up and please facilitate scheduling appointment with me or [facility]. The following approved medication requests have been transmitted electronically. Requested Prescriptions Signed Prescriptions Disp Refills carbidopa-levodopa (SINEMET 25-100) 25-100 mg per tablet 540 tablet 0 Sig: Take 1.5 tablets by mouth four times daily. Authorizing Provider: WILLIE MATTHEWS MD [facility] 11-18-2023 Miscellaneous Notes Please advise patient he is overdue for follow-up and please facilitate scheduling appointment with me or [facility]. The following approved medication requests have been transmitted electronically. Requested Prescriptions Signed Prescriptions Disp Refills carbidopa-levodopa (SINEMET 25-100) 25-100 mg per tablet 540 tablet 0 Sig: Take 1.5 tablets by mouth four times daily. Authorizing Provider: WILLIE MATTHEWS MD Patient has been identified by name and date of : Yes Last office visit in this department: 09/19/2022 NOV not scheduled RX INSTRUCTIONS: Pharmacy initiated this request. No need to notify patient. Patient phones requesting refills as follows: Requested Prescriptions Pending Prescriptions Disp Refills carbidopa-levodopa (SINEMET 25-100) 25-100 mg per tablet 540 tablet 0 Sig: Take 1.5 tablets by mouth four times daily. Please review and advise. Rosetta Valiente MA documented in this encounter [facility] 11-15-2023 Telephone encounter Note Patient has been identified by name and date of : Yes Last office visit in this department: 09/19/2022 NOV not scheduled RX INSTRUCTIONS: Pharmacy initiated this request. No need to notify patient. Patient phones requesting refills as follows: Requested Prescriptions Pending Prescriptions Disp Refills carbidopa-levodopa (SINEMET 25-100) 25-100 mg per tablet 540 tablet 0 Sig: Take 1.5 tablets by mouth four times daily. Please review and advise. Rosetta Valiente MA [facility] 09-16-2023 Telephone encounter Note Called and spoke with Patient's spouse. Relayed message below. An appointment was not scheduled at this time. Spouse states they will call back to schedule at another time. Edelmira Farr [facility] 09-16-2023 Miscellaneous Notes Called and spoke with Patient's spouse. Relayed message below. An appointment was not scheduled at this time. Spouse states they will call back to schedule at another time. Edelmira Farr Please advise patient he is overdue for follow-up and please facilitate scheduling appointment with me or OLE (has seen James). The following approved medication requests have been transmitted electronically. Requested Prescriptions Signed Prescriptions Disp Refills carbidopa-levodopa (SINEMET 25-100) 25-100 mg per tablet 540 tablet 0 Sig: Take 1.5 tablets by mouth four times daily. Authorizing Provider: WILLIE MATTHEWS MD Patient has been identified by name and date of : Yes Last office visit in this department: 09/19/2022 NOV not scheduled RX INSTRUCTIONS: Pharmacy initiated this request. No need to notify patient. Patient phones requesting refills as follows: Requested Prescriptions Pending Prescriptions Disp Refills carbidopa-levodopa (SINEMET 25-100) 25-100 mg per tablet 540 tablet 3 Sig: Take 1.5 tablets by mouth four times daily. Please review and advise. Rosetta Valiente MA documented in this encounter [facility] 09-02-2023 Telephone encounter Note Please advise patient he is overdue for follow-up and please facilitate scheduling appointment with me or OLE (has seen James). The following approved medication requests have been transmitted electronically. Requested Prescriptions Signed Prescriptions Disp Refills carbidopa-levodopa (SINEMET 25-100) 25-100 mg per tablet 540 tablet 0 Sig: Take 1.5 tablets by mouth four times daily. Authorizing Provider: WILLIE MATTHEWS MD [facility] 09-02-2023 Telephone encounter Note Patient has been identified by name and date of : Yes Last office visit in this department: 09/19/2022 NOV not scheduled RX INSTRUCTIONS: Pharmacy initiated this request. No need to notify patient. Patient phones requesting refills as follows: Requested Prescriptions Pending Prescriptions Disp Refills carbidopa-levodopa (SINEMET 25-100) 25-100 mg per tablet 540 tablet 3 Sig: Take 1.5 tablets by mouth four times daily. Please review and advise. Rosetta Valiente MA [facility] 09-19-2022 Note HNO ID: [id number] Author: Willie Matthews MD Service: ? Author [...] male patient. Sean (more content not included)... [facility] 08-28-2022 Miscellaneous Notes Attempted to return call [...] Name and Date of . ( Adi Jimenez Ashe[birth year], 1945). Yes Reason for Call : calls stating patient is sleeping all the time . His energy is low and can hardly walk . There has not been any recent illness or changes. Attempted to make appointment in tomorrow morning slot with but patient had a conflict and she asked if there might be anything to do for him now. Number to return call [phone] Okay to leave a message ? Last office visit 01/16/22 with James No visit scheduled. Thank you calling [facility] [place]. You will receive a return call within 48 hours ( or 2 business days if close to the weekend). If you feel that this is an urgent issue and needs immediate attention, it is recommended that you contact your primary care provider office or proceed to your nearest Urgent Care Center of Emergency Room ED for evaluation/treatment. documented in this encounter [facility] 01-22-2022 Miscellaneous Notes Request from patient requesting refill. RX prescribed by previous neurologist. [facility] Last OV: 01/16/22 with SS Future OV: 07/16/22 with KA Requested Prescriptions Pending Prescriptions Disp Refills sertraline (ZOLOFT) 100 mg tablet 90 tablet 3 Sig: Take 1 tablet by mouth once daily. Jerica Mclaughlin documented in this encounter [facility] 01-16-2022 Note HNO ID: [id number] Author: James Bernal APRN.SOCIAL SERVICE DIRECTOR Service: ? Author Type: Nurse Practitioner Type: [...] to him later. Loses train of thought. [place] Cognitive Assessment (MoCA): 15 (01/16/2022 3:30 PM) [...] of exam Medicatio (more content not included)... [facility] 01-16-2022 Instructions James Bernal APRN.[facility] - 01/16/2022 4:03 PM EDT For your [...] hallucinations. documented in this encounter [facility] 01-16-2022 History of Present illness [...] to him later. Loses train of thought. [place] Cognitive Assessment (MoCA): 15 (01/16/2022 3:30 PM) [...] not have Parkinson's disease. I did a [place] today, and he scored a 15. Due [...] potential for hallucinations. Level of service : 52891 (40-54 min). Time spent 45 min on the day of service, which included preparing to see the patient, pccp-ro-txcx patient care, completing clinical documentation, obtaining and/or [...] hesitate to call with any questions. Sincerely, James Bernal APRN.SOCIAL SERVICE DIRECTOR documented in this encounter [facility] 09-20-2021 Note HNO ID: [id number] Author: Willie Matthews MD Service: ? Author [...] one(1) tablet daily. (more content not included)... [facility] 09-20-2021 Instructions Willie Matthews MD - 09/20/2021 [...] or you can send a message through [employer]. You can also now schedule and select appointments through [employer]. Willie Matthews MD Constipation and Other Gastrointestinal [...] future constipation. Treatments fall into two categories: qpjz-mhi-bnofvjm and prescription therapies. Remember: consult with your [...] day and your own convenience and preference. Tgch-ram-Sopywvi Products Gitg-eea-drkbxkz treatments for constipation can be purchased at [...] It also comes as a capsule (Senna Marlow Smooth Move ). ving with PD Constipation [...] to pass. These can be used intermediate frame tender but should not be used in combination [...] after other remedies have failed. Among the rfkf-qsm-bssorey laxatives, they are most likely to cause [...] psyllium (Perdiem ). Common Side Effects of Diav-cgj-Spaafed Products for Constipation Emollient (Stool Softeners) Skin [...] any side effects listed. Prescription Products When bfai-mad-nqndjhm remedies fail, your healthcare provider may recommend [...] Stimulant X Bisacodyl (Dulcolax ) Stimulant X [place] Oil Stimulant X Cellulose (Unifiber ) Bulk [...] Docusate (Senokot ) Stimulant X Adapted from: [facility] Website, accessed August 30, 2015, www.[employer]/health/druginfo rmation/ [id number] Special Precautions For your safety, consult your [...] Percy Gonzalez, Ph.D., R.N., and Nik Gray, Jose.S.N., C.R.N.P. Constipation Tracker Day/Date Time Food(s) Eaten Activities Emotional Status Stool Description Feel free to photocopy this page and use it throughout the year to track your symptoms and share with your doctor. This is a patient education material provided by the Parkinson s Foundation. For more information and resources see https://www.parkinson.org/. [facility] is a Center of Excellence for the Parkinson s Foundation. documented in this encounter [facility] 09-20-2021 History of Present illness [...] now. Diagnosed around that time. Neurologist left [place]. Would like walking to be better. Doesn't [...] Coronary atherosclerosis of unspecified type of vessel, [place] or graft, Essential hypertension, benign, Other and [...] 2+ 2+ Achilles 1+ 1+ Coordination Right: Sxowtb-mp-uahf normal. Rapid alternating movement normal. Left: Oqhkua-ni-mvbk normal. Rapid alternating movement normal. Movement Disorders [...] MD documented in this encounter [facility] Evaluation note Diagnosis Parkinson disease (HCC)- Primary Paralysis agitans RBD (REM behavioral disorder) REM sleep behavior disorder Gait instability Abnormality of gait [facility] Diagnosis Parkinson disease (HCC)- Primary Paralysis agitans [facility]* Diagnosis Parkinson disease (HCC) Paralysis agitans documented in this encounter [facility] Reason for Referral Specialty Diagnoses / Procedures Referred By Ayaz jimenez Referred To Contact Diagnoses Parkinson disease (HCC) Procedures PROVIDER ORDERED FOLLOW UP OFFICE/OUTPATIENT [facility] 60-74 MINUTES Willie Matthews MD [address] [address] Referral ID Status Reason Start Date Expiration Date Visits Requested Visits Authorized [id number] Authorized PCP Requested Referral 12/21/2021 09/20/2022 1 1 Specialty Diagnoses / Procedures Referred By Ayaz jimenez Referred To Contact [facility] Diagnoses Parkinson disease (HCC) Gait instability Procedures CONSULT TO PHYSICAL THERAPY PHYSICAL THERAPY EVALUATION HIGH COMPLEX 45 MINS Willie Matthews MD [address] [address] [facility] [address] [address] Referral ID Status Reason Start Date Expiration Date Visits Requested Visits Authorized [id number] Pending Review Auto-Generat ed Referral 09/20/2021 09/20/2022 1 1 Specialty Diagnoses / Procedures Referred By Ayaz t Referred To Contact Diagnoses Parkinson disease (HCC) Procedures CONSULT TO [facility] James Bernal APRN.SOCIAL SERVICE DIRECTOR [address] [place] [address] Home Care [address] [place] [address] Referral ID Status Reason Start Date Expiration Date Visits Requested Visits Authorized [id number] Authorized PCP Requested Referral 01/16/2022 04/16/2022 1 1 Specialty Diagnoses / Procedures Referred By Ayaz jimenez Referred To Contact Diagnoses Parkinson disease (HCC) Procedures PROVIDER ORDERED FOLLOW UP OFFICE/OUTPATIENT [facility] 60 MINUTES Willie Matthews MD [address] [place] [id number] Referral ID Status Reason Start Date Expiration Date Visits Requested Visits Authorized [id number] Authorized PCP Requested Referral 10/02/2023 09/01/2024 1 1 Referral ID Status Reason Start Date Expiration Date Visits Requested Visits Authorized [id number] Authorized PCP Requested Referral 12/19/2023 11/17/2024 1 1 Summary Purpose Family History No [...] any alcohol or drug abuse patient.[facility] the event this information is protected by the Federal Confidentiality of Alcohol and Drug Abuse Patient Records regulations: The Federal rules restrict any use of the information to criminally investigate or prosecute any alcohol or drug abuse patient.[facility] the event this information is protected by the Federal Confidentiality of Alcohol and Drug Abuse Patient Records regulations: The Federal rules restrict any use of the information to criminally investigate or prosecute any alcohol or drug abuse patient.[facility] the event this information is protected by the Federal Confidentiality of Alcohol and Drug Abuse Patient Records regulations: The Federal rules restrict any use of the information to criminally investigate or prosecute any alcohol or drug abuse patient.[facility] the event this information is protected by the Federal Confidentiality of Alcohol and Drug Abuse Patient Records regulations: The Federal rules restrict any use of the information to criminally investigate or prosecute any alcohol or drug abuse patient.[facility] the event this information is protected by the Federal Confidentiality of Alcohol and Drug Abuse Patient Records regulations: The Federal rules restrict any use of the information to criminally investigate or prosecute any alcohol or drug abuse patient.[facility] Reason for Visit (unrecogniz ed section and content) Reason Comments New Patient Parkinson's Disease Reason Comments Parkinson's Disease Specialty Diagnoses / Procedures Referred By Ayaz t Referred To Contact Diagnoses Parkinson disease (HCC) Procedures PROVIDER ORDERED FOLLOW UP OFFICE/OUTPATIENT [facility] 60-74 MINUTES Willie Matthews MD [address] [facility] [address] [place] [address] Referral ID Status Reason Start Date Expiration Date V isits Requested Visits Authorized [id number] Closed PCP Requested Referral 12/21/2021 09/20/2022 1 1 Reason Onset Date Comments Refill Request 01/22/2022 Reason Comments Symptom Management Reason Onset Date Comments Refill Request 09/02/2023 Reason Onset Date Comments Refill Request 11/15/2023 Care Teams (unrecognized sec tion and content) Pack Room Operator Relationship Specialty Start Date End Date Luli Hays PCP - General 08/21/00 Pack Room Operator Relationship Specialty Start Date End Date Luli Hays PCP - General 08/21/00 Pack Room Operator Relationship Specialty Start Date End Date Luli Hays PCP - General 08/21/00 Pack Room Operator Relationship Specialty Start Date End Date Luli Hays PCP - General 08/21/00 James Bernal, SEGMENT PRODUCER.SOCIAL SERVICE DIRECTOR [address] [place] [address] Specialty Fireworks Inspector Neurology 02/21/22 Rina Irvin, SEGMENT PRODUCER.SOCIAL SERVICE DIRECTOR [address] [place] [address] Specialty Fireworks Inspector Neurology 05/21/22 Pack Room Operator Relationship Specialty Start Date End Date Luli Hays PCP - General 08/21/00 James Bernal, SEGMENT PRODUCER.SOCIAL SERVICE DIRECTOR [address] [place], [place] [id number] Specialty Fireworks Inspector Neurology 02/21/22 Rina Irvin, RENATA.SOCIAL SERVICE DIRECTOR [address] [place], [place] [id number] Specialty Fireworks Inspector Neurology 05/21/22 Willie Matthews MD [address] [id number] Specialty Fireworks Inspector Neurology 04/24/23 (unrecognized sect ion and content) No Status Records Found INFORMATION SOURCE (unrecogn ized section and content) DATE CREATED AUTHOR 09/20/2022 [facility] FOR RECORDS PERTAINING TO PATIENTS WHO ARE [...] BE BASED ON THE PRIMARY CLINICAL RECORDS. [facility] [employer] provides no warranty or guarantee of the accuracy or completeness of information in this document.
[2024-01-18 17:02] VITALS: BP 102/46; PULSE 73; RESP 15
[2024-01-18 17:49] LABS: Reflex Troponin-HS? (from REC) Y
[2024-01-18 18:11] LABS: Troponin-I HS 27 pg/mL (3.0-78.0)
[2024-01-18 18:45] VITALS: BP 118/97; PULSE 73; RESP 16; TEMP 36.6; O2SAT 97
[2024-01-18 19:00] VITALS: BP 113/65; PULSE 71; RESP 18; O2SAT 97
--- NOTE | 2024-01-18 19:00 | NURSING ---
emergency documentation in effect 01/18/241899
--- OUTSIDE RECORDS SUMMARY | 2024-01-18 19:08 | XMS RPT_ITS | CCD ---
Author Organization [facility]ini[facility] Care Team Providers Care Mobile Sales Assistant Name Role Phone RAMIRO Santiago, Jena Garcia Unavailable Unavailable Cassandra RUBIO, Karen Garsia Unavailable [phone] RACHEL Jorgensen, Karen Garcia Unavailable Vero RUBIO, Shweta Leavitt Unavailable Unavailable Valarie Duffy Unavailable Unavailable Valarie Duffy Unavailable Unavailable RAMIRO Santiago, Jena Garcia Unavailable Unavailable Aaron Perez MD Unavailable [facility] Nurse Unavailable Unavailable RACHEL Jorgensen, Karen Garcia Unavailable [place], Luli Nadja Primary Care Provider Unavailabl e [place], [facility] Primary Care Provider Unavailabl e [place], [facility] Primary Care Provider Unavailabl e [place], Luli Nadja Primary Care Provider Unavailabl e Bernal MANUFACTURING QUALITY ENGINEER.James GONZALEZ Unavailable Albaro YANEZ.Rina GONZALEZ Unavailable WILLIE MATTHEWS Attending Unavailable MAHESH, LULI SAEZ Primary Care Unavailable BAY, LULI SAEZ Primary Care Unavailable WILLIE MATTHEWS Attending Unavailable JAMES BERNAL Attending Unavailable [place], LULI NADJA Primary Care Unavailable [place], [facility] Primary Care Provider Unavailabl e Analilia MANUFACTURING QUALITY ENGINEER.James GONZALEZ Unavailable Albaro YANEZ.Rina GONZALEZ Unavailable [phone] Willie Matthews MD Unavailable [phone] Medications Current Medications Medication Drug Class(es) [...] th once daily TOPROL XL 100 MG [id number] One half tablet by mouth daily METOPROLOL SUCCINATE [id number] Karen Jorgensen PA-C Start: 11-02-2010 take 1 tablet by carlota th once daily TOPROL XL 100 MG [id number] One tablet by mouth daily METOPROLOL SUCCINATE [id number] Aaron Perez MD Comment on above: Take 50 mg by mouth once daily. ramipril 10 mg oral capsule (20 sources) Angiotensin Converting Enzyme Inhibitor Start: 08-04-2022 ramipril (ALTACE) 10 mg capsule Start: 11-02-2010 take 1 tablet by carlota th twice daily ALTACE 10 MG CAPS One tablet by mouth twice daily RAMIPRIL [id number] Aaron Perez MD Start: 11-02-2010 take 1 tablet by carlota th once daily ALTACE 10 MG CAPS One tablet by mouth daily RAMIPRIL [id number] Karen Jorgensen PA-C Start: 11-02-2010 take 1 tablet by carlota th twice daily ALTACE 10 MG CAPS One tablet by mouth twice daily RAMIPRIL [id number] Aaron Perez MD Start: 03-05-2005 End: 09-20-2021 take 1 tablet by mouth once daily ALTACE 10 MG CAPS One tablet by mouth daily RAMIPRIL [id number] BRUCE AbbottC Comment on above: Take one(1) [...] TBEC One tablet by mouth daily ASPIRIN [id number] Aaron Perez MD Start: 11-02-2010 take 1 tablet by carlota th once daily ASPIRIN 325 MG TABS One tablet by mouth daily ASPIRIN 45897333478 Kim Graham Start: 03-05-[address] [...] One tablet by mouth at bedtime. CARBIDOPA-LEVODOPA [id number] Aaron Perez MD Start: 05-19-2015 take 1 tablet by carlota th at bedtime SINEMET CR 50-200 MG CR-TABS One tablet by mouth at bedtime. CARBIDOPA-LEVODOPA [id number] Aaron Perez MD Start: 11-02-2010 take 1 tablet by carlota th three times daily SINEMET 25-100 MG TABS One tablet by mouth three times daily CARBIDOPA-LEVODOPA [id number] Kim Graham Start: 11-02-2010 take 1 tablet by carlota th three times daily SINEMET 25-100 MG TABS One tablet by mouth three times daily CARBIDOPA-LEVODOPA [id number] Kim Graham Comment on above: Take 2 tablets by mo [facility] four times daily. Take 2 tablets by mo [facility] three times daily. cholecalciferol 2000 unt oral capsule (20 sources) Vitamin D Start: 10-13-19 14 take 1 tablet by mouth once daily VITAMIN D3 2000 UNIT CAPS One tablet by mouth daily CHOLECALCIFEROL 72470227783 Karen Jorgensen PA-C Start: 10-12-2013 VITAMIN D3 200 0 UNIT CAPS 5,000 IU twice daily CHOLECALCIFEROL 56066982636 Aaron Perez MD citalopram 20 mg oral tablet (20 sources) Serotonin Reuptake Inhibitor Start: 03-05-2005 End: 09-20-2021 take 1 tablet by mouth once daily CELEXA 20 MG TABS One tablet by mouth daily CITALOPRAM HYDROBROMIDE 06609625578 Kim Graham Comment on above: Take one(1) tablet d aily. clopidogrel 75 mg oral tablet (20 sources) P2Y12 Platelet Inhibitor Start: 11-02-2010 End: 02-25-2012 take 1 tablet by mouth once daily PLAVIX 75 MG TABS One tablet by mouth daily CLOPIDOGREL BISULFATE 05377156518 Aaron Perez MD ergocalciferol 71462 unt oral capsule (13 sources) Provitamin D2 Compound Start: 10-12-2013 take 1 tablet by mouth once daily VITAMIN D (ERGOCALCIFEROL) 47047 UNIT CAPS One tablet by mouth daily ERGOCALCIFEROL 01902812401 Karen Jorgensen PA-C Start: 10-12-2013 take 1 tablet by carlota once daily VITAMIN D (ERGOCALCIFEROL) 42444 UNIT CAPS One tablet by mouth daily ERGOCALCIFEROL 58888231160 Karen Jorgensen PA-C etodolac 400 mg oral tablet (20 sources) Nonsteroidal Anti-inflammatory Drug Start: 08-23-2011 End: 09-26-2012 take 1 tablet by mouth twice daily ETODOLAC 400 MG TABS One tablet by mouth twice daily ETODOLAC 86768300548 Aaron Perez MD furosemide 40 mg oral [...] with low fat snack NIACIN (ANTIHYPERLIPIDEM IC) 72025938490 Aaron Perez MD Start: 03-05-2005 End: 09-20-2021 take 1 tablet by mouth at bedtime NIASPAN 1000 MG CR-TABS One tablet by mouth at bedtime. with low fat snack NIACIN (ANTIHYPERLIPIDEMIC) 31088161098 Aaron Perez MD Comment on above: Take one(1) tablet d aily. nitroglycerin 0.4 mg sublingual tablet (20 sources) Nitrate Vasodilator Start: 08-23-2011 NITROSTAT 0.4 MG SUBL 1 tablet under tongue every 5 min up to 3 X NITROGLYCERIN 00794893390 Aaron Perez MD Start: 11-02-2010 NITROGLYCERIN 0.4 MG/HR PT24 1 tablet under tongue every 5 min up to 3 X NITROGLYCERIN 76984890186 Kim Graham OMEGA-3 FATTY ACIDS CPDR (10 sources) Start: 11-02-2010 take 1 tablet by mouth once daily OMEGA 3 CPDR One tablet by mouth daily OMEGA-3 FATTY ACIDS CPDR 99400925552 Kim Graham Start: 11-02-2010 End: 02-25-2012 take 1 tablet by mouth once daily OMEGA 3 CPDR One tablet by mouth daily OMEGA-3 FATTY ACIDS CPDR 62399091858 Aaron Perez MD OMEGA-3 FATTY ACIDS CPDR (16 sources) Start: 11-02-2010 End: 02-25-2012 take 1 tablet by mouth once daily OMEGA 3 CPDR One tablet by mouth daily OMEGA-3 FATTY ACIDS CPDR 05381804778 Aaron Perez MD Start: 11-02-2010 take 1 tablet by carlota th once daily OMEGA 3 CPDR One tablet by mouth daily OMEGA-3 FATTY ACIDS CPDR 83715130016 Kim Graham Start: 11-02-2010 take 1 tablet by carlota th once daily OMEGA 3 CPDR One tablet by mouth daily OMEGA-3 FATTY ACIDS CPDR 69199869462 Kim Graham Start: 11-02-2010 End: 02-25-2012 take 1 tablet by mouth once daily OMEGA 3 CPDR One tablet by mouth daily OMEGA-3 FATTY ACIDS CPDR 77104492291 Aaron Perez MD rasagiline 1 mg oral tablet (20 sources) Monoamine Oxidase Inhibitor Start: 04-10-2013 End: 10-12-2013 AZILECT 1 MG TABS 1/2 tablet x 4 days, then one tablet daily RASAGILINE MESYLATE 17290642161 Karen Jorgensen PA-C rOPINIRole 1 mg oral tablet (20 sources) Nonergot Dopamine Agonist Start: 02-25-2012 End: 04-19-2014 take 1 tablet by mouth three times daily REQUIP 1 MG TABS One tablet by mouth three times daily ROPINIROLE HCL 62707460290 Aaron Perez MD Start: 11-02-2010 take 2 tablets by mo [facility] once daily REQUIP 4 MG TABS 2 tablets by mouth daily ROPINIROLE HCL 06451106358 Kim Marinward sulfamethoxazole 800 mg / trimethoprim 160 mg oral tablet (20 sources) Dihydrofolate Reductase Inhibitor Antibacterial, Sulfonamide Antimicrobial Start: 04-17-2013 End: 10-12-2013 take 1 tablet by mouth twice daily BACTRIM DS 800-160 MG TABS One tablet by mouth twice daily X 3 days SULFAMETHOXAZOLE-TRIMETHOPRIM [id number] Karen Jorgensen PA-C Start: 04-17-2013 take 1 tablet by carlota th twice daily BACTRIM DS 800-160 MG TABS One tablet by mouth twice daily SULFAMETHOXAZOLE-TRIMETHOPRIM 39694569759 Clair Ovalle RN Start: 04-17-2013 End: 10-12-2013 take 1 tablet by mouth twice daily BACTRIM DS 800-160 MG TABS One tablet by mouth twice daily X 3 days SULFAMETHOXAZOLE-TRIMETHOPRIM 72609093427 Karen Jorgensen PA-C Start: 04-17-2013 take 1 tablet by carlota th twice daily BACTRIM DS 800-160 MG TABS One tablet by mouth twice daily X 3 days SULFAMETHOXAZOLE-TRIMETHOPRIM 36226388873 Aaron Perez MD vitamin b 12 1 mg oral tablet (20 sources) Vitamin B12 Start: 11-02-2010 End: 10-12-2013 take 1 tablet by mouth once daily VITAMIN B-12 1000 MCG TABS One tablet by mouth daily CYANOCOBALAMIN 46527217634 Kim Graham Problems Active Problems Problem Classification [...] disease (20 sources) Atherosclerotic heart disease of [place] coronary artery without angina pectoris; Translations: [Angina [...] (8 sources) Long-term drug therapy; Translations: [Other intermediate (current) drug therapy] Onset: 11-02-2010 11-02-2010 Past [...] Other intermediate (current) drug therapy; Translations: [Other intermediate (current) drug therapy] Onset: 11-02-2010 Episodic Other [...] Test Name Value Interpretation Reference Range Facility [facility] 09-19-2022 CNOV Office Visit (NRMDN) ADI LUND ([id number]) 1945 M Date Time Provider Department 09/19/22 [...] kg (139 (more content not included)... [facility] Silver 08-27-2022 CNPN Telephone (NREUS2) ASHELYADI Jimenez ([id number]) 1945 Date Time Provider Department 08/27/22 WILLIE MATTHEWS NREUS2 During your visit today, we recorded the following information about you: [facility] Roberto Yee 08/27/2022 3:28 PM Signed NI [...] for him now. Number to return call [phone] Okay to leave a message ? Last office visit 01/16/22 with James No visit scheduled. Thank you calling [facility]. You will receive a return call within [...] nurse, states she can be reached at [phone] Sangeeta Main RN 09/12/2022 2:13 PM Signed [...] for home nail trimming, recommended calling local tso to see if one can accommodate with home visit. Transferred to [facility] to assist with scheduling appointment. Willie Matthews [...] Letter Text (more content not included)... [facility] CNCOon 05-01-2022 CNCO Letter Text [facility] CNPNon 01-17-2022 CNPN Telephone (HCSIND) ADI LUND ([id number]) 1945 M Date Time Provider Department 01/17/22 BRANDON WEINBERG During your visit today, we recorded the following information about you: MAXI Soria 01/17/2022 8:22 AM Signed Thank you for the referral of your patient to [facility]. At this time, we are at capacity and are unable to accept your patient. In order to help your patient receive quality home care, we have included reputable agencies that service this area: [facility] [phone] or [facility] [phone]. Please contact this agency and they will work with your patient to arrange timely services. Thank you, Brandon Weinberg, PSS 01/17/2022 8:22 AM James Bernal APRN.YARN SKEINS EXAMINER 01/17/2022 11:41 AM Signed Addended by: JAMES BERNAL on: 01/17/2022 11:41 AM Modules accepted: Orders James Bernal APRN.YARN SKEINS EXAMINER 01/17/2022 11:41 AM Signed Thanks so much! Order is in SEBASTIÁN Tolentino 01/18/2022 10:00 AM Signed Please fax referral to [facility] at [phone]. Bridger Youngblood RN 01/18/2022 10:59 AM Signed Order, demographics and insurance faxed per request. Bridger Youngblood RN DidiSEBASTIÁN David 01/22/2022 11:22 AM Signed SW spoke with Shweta at [facility], patient is out of the service area. Please fax home care referral to [facility] at [phone]. Ami Angel RN 01/22/2022 11:49 AM Signed Information faxed to [facility] as requested. Autumn Pike [facility] 01/23/2022 2:43 PM Signed [facility] called to report pt declined service for PT order received. Allergies As of Date: 01/17/2022 (No Known Allergies) Date Reviewed: 01/16/2022 Reviewed by: Kiley Connor MA - Fully Assessed Reason for Visit: Home Care [4073] Primary Visit Diagnosis:Parkinson' s disease (HCC) [G20] Order(s):CONSULT - [facility] [5021717] Order #: [id number]: 1 [facility] [[id number]] Order #: [id number]: 1 Prescriptions as of 01/23/2022 - sertraline [...] Encounter Status:Closed by JAMES BERNAL on 01/17/[address] [facility] Office Visit (NRMDN) ASHELYADI CROWLEY ([id number]) 1945 M Date Time Provider Department 01/16/22 3:00 PM JAMES BERNAL NRKERA During your visit today, we recorded the following information about you: Weight Height 67.4 kg 1.753 m James Bernal APRN.YARN SKEINS EXAMINER 01/17/2022 2:48 PM Signed [facility] [...] his spo (more content not included)... [facility] CNOVon 09-20-2021 CNOV Office Visit (NRMDN) ADI LUND ([id number]) 1945 M Date Time Provider Department 09/20/21 [...] now. Diagnosed around that time. Neurologist left [facility]. Would like walking to be better. Doesn't [...] 1 tabl (more content not included)... [facility] Office Visit: [facility] 02-13-20 17 Documentation of current medications (procedure) Done Invalid Interpretation Code [email or web address] Work Phone: [phone] Protein mass conc Done Invalid Interpretation Code [email or web address] Work Phone: [phone] Lab Report: CBC W/Diff, Auto matedon 01-02-2017 RBC morphology finding Nom (Bld) NORM C+C Invalid Interpretation Code NORM C AND C [email or web address] Work Phone: [phone] Lab Report: T4 Total, Thyrox inon 01-02-2017 T4 mass conc 8.3 ug/dL Invalid Interpretation Code 4.5-12.1 [email or web address] Work Phone: [phone] Lab Report: Thyroid Stim Hor samara (TSH)on 01-02-2017 Thyrotropin Qn 1.18 u[iU]/mL Invalid Interpretation Code 0.358-3.74 [email or web address] Work Phone: [phone] Office Visit: [facility] 01-03-20 17 Documentation of current medications (procedure) Done Invalid Interpretation Code [email or web address] Work Phone: [phone] Fall risk assessment No Invalid Interpretation Code [email or web address] Work Phone: [phone] Protein mass conc Done Invalid Interpretation Code [email or web address] Work Phone: [phone] Replaced Document: (P) CBC W /Diff, Automatedon 01-02-2017 Absolute Neut 3.9 X10 3/UL Invalid Interpretation Code 2.0-7.7 [email or web address] Work Phone: [phone] Basophils/100 leukocytes 0.5 % Invalid Interpretation Code 0-1 [email or web address] Work Phone: [phone] Basophils/100 WBC (Bld) 0.5 % 0-1 [email or web address] Work Phone: [phone] Eosinophils/100 leukocytes 2.3 % Invalid Interpretation Code 0-5 [facility] Work Phone: [phone] Eosinophils/100 WBC (Bld) 2.3 % 0-5 [facility] Work Phone: [phone] Erythrocyte distribution width Auto Ratio (RBC) 46.3 fL High 35.1-43.9 [facility] Work Phone: [phone] Erythrocyte distribution width Ratio (RBC) 46.3 fL High 35.1-43.9 [facility] Work Phone: [phone] Erythrocyte distribution width Ratio (RBC) 13.2 % 11.6-14.6 [facility] Work Phone: [phone] Erythrocytes (RBC) 4.25 10*6/uL Low 4.6-6.[address] [facility] Work Phone: [phone] Hematocrit (HCT) 40.5 % Invalid Interpretation Code 40-54 [facility] Work Phone: [phone] Hematocrit Volume Fraction (Bld) 40.5 % 40-54 [facility] Work Phone: [phone] Hemoglobin (HGB) 13.6 g/dL Invalid Interpretation Code 13.0-16.5 [facility] Work Phone: [phone] Immature granulocytes #/vol (Bld) 0.200 % Invalid Interpretation Code 0.0-0.9 [facility] Work Phone: [phone] immature granulocytes, percentage of total cells, blood 0.200 % Invalid Interpretation Code 0.0-0.9 [facility] Work Phone: [phone] Immature granulocytes/100 WBC (Bld) 0.200 % Invalid Interpretation Code 0.0-0.9 [facility] Work Phone: [phone] Lymphocytes 1.40 X10 3/UL Invalid Interpretation Code 0.83-4.51 [facility] Work Phone: [phone] Lymphocytes #/vol (Bld) 1.40 X10 3/UL 0.83-4.51 [facility] Work Phone: [phone] Lymphocytes/100 leukocytes 21.9 % Invalid Interpretation Code 19-41 [facility] Work Phone: [phone] Lymphocytes/100 WBC (Bld) 21.9 % 19-41 [facility] Work Phone: [phone] MCH 32.0 pg Invalid Interpretation Code 27.0-32.0 [facility] Work [phone] MCH Entitic mass (RBC) 32.0 pg 27.0-32.0 [facility] Work [phone] MCHC 33.6 G/GL Invalid Interpretation Code 32-36 [facility] Work [phone] MCHC mass conc (RBC) 33.6 G/GL 32-[address] [facility] Work Phone: [phone] MCV 95.3 fL High 80-94 [facility] Work Phone: [phone] MCV Entitic volume (RBC) 95.3 fL High 80-94 [facility] Work Phone: [phone] Monocytes/100 leukocytes 14.1 % High 0-10 [facility] Work Phone: [phone] Monocytes/100 WBC (Bld) 14.1 % High 0-10 [facility] Work Phone: [phone] neutrophil count, blood 3.9 X10 3/UL Invalid Interpretation Code 2.0-7.7 [facility] Work Phone: [phone] Neutrophils #/vol (Bld) 3.9 X10 3/UL 2.0-7.7 [facility] Work Phone: [phone] Neutrophils Auto #/vol (Bld) 3.9 X10 3/UL Invalid Interpretation Code 2.0-7.7 [facility] Work Phone: [phone] Neutrophils/100 leukocytes 61.0 % Invalid Interpretation Code 47-70 [facility] Work Phone: [phone] Neutrophils/100 WBC (Bld) 61.0 % 47-70 [facility] Work Phone: [phone] Platelet mean volume Entitic volume (Bld) 9.3 fL 6.2-12.0 [facility] Work Phone: [phone] Platelets 226 10*3/mm3 Invalid Interpretation Code 150-450 [facility] Work Phone: [phone] Platelets #/vol (Bld) 226 10*3/mm3 150-450 [facility] Work Phone: [phone] PMV by [place] 9.3 fL Invalid Interpretation Code 6.2-12.0 [facility] Work Phone: [phone] RBC #/vol (Bld) 4.25 10*6/uL Low 4.6-6.2 [facility] Work Phone: [phone] RDW SD 46.3 fL High 35.1-43.9 [facility] Work Phone: [phone] RDW-CA 13.2 % Invalid Interpretation Code 11.6-14.6 [facility] Work Phone: [phone] red blood cell distribution width, size density 46.3 fL High 35.1-43.9 [facility] Work Phone: [phone] WBC #/vol (Bld) 6.4 10*3/uL 4.4-11.0 [facility] Work Phone: [phone] WBC (Leukocytes) 6.4 10*3/uL Invalid Interpretation Code 4.4-11.0 [facility] Work Phone: [phone] Lab Report: Basic Metabolic Profile (BMP)on 11-15-2016 Anion gap 7 mmol/L Invalid Interpretation Code 5-15 [facility] Work Phone: [phone] Anion gap 4 molar conc 7 Invalid Interpretation Code 5-15 [facility] Work Phone: [phone] Anion gap molar conc 7 mmol/L 5-[address] [facility] Work Phone: [phone] Calcium mass conc 9.0 mg/dL Invalid Interpretation Code 8.5-10.1 [facility] Work Phone: [phone] Chloride molar conc 101 mmol/L Invalid Interpretation Code 98-107 [facility] Work Phone: [phone] CO2 29.0 mmol/L Invalid Interpretation Code 21.0-32.0 [facility] Work Phone: [phone] CO2 ppres (BldV) 29.0 mmol/L Invalid Interpretation Code 21.0-32.0 [email or web address] Work Phone: [phone] Creatinine mass conc 1.13 mg/dL Invalid Interpretation Code 0.70-1.30 [email or web address] Work Phone: [phone] eGFR (non-black) 82 mL/min/{1.73_m2} Invalid Interpretation Code >60 [email or web address] Work Phone: [phone] EST GFR - AA 82 mL/min Invalid Interpretation Code >60 [email or web address] Work Phone: [phone] GFR/1.73 sq M predicted among non-blacks MDRD vol rate/area (S/P/Bld) 68 mL/min/{1.73_m2} Invalid Interpretation Code >60 [email or web address] Work Phone: [phone] Glucose 106 mg/dL Invalid Interpretation Code 70-110 [email or web address] Work Phone: [phone] Glucose mass conc 106 mg/dL Invalid Interpretation Code 70-110 [email or web address] Work Phone: [phone] Potassium molar conc 4.1 mmol/L Invalid Interpretation Code 3.5-5.1 [email or web address] Work Phone: [phone] Sodium molar conc 137 mmol/L Invalid Interpretation Code 136-145 [email or web address] Work Phone: [phone] Urea nitrogen mass conc 31 mg/dL High 7-18 [email or web address] Work Phone: [phone] Urea nitrogen/Creatinine mass ratio 27.4 RATIO High 10-20 [email or web address] Work Phone: [phone] Office Visiton 07-04-2016 Documentation of current medications (procedure) Done Invalid Interpretation Code [email or web address] Work Phone: [phone] Protein mass conc Done [email or web address] Work Phone: [phone] Clinical Lists Update: Prelo transactional attorney 06-27-2016 Left ventricular Ejection fraction 50 % Invalid Interpretation Code [email or web address] Work Phone: [phone] Lab Report: CBC-Complete Blo od Cnt No Diffon 05-04-2016 Erythrocyte distribution width Ratio (RBC) 12.8 % 11.6-14.6 [email or web address] Work Phone: [phone] Erythrocyte distribution width Ratio (RBC) 42.1 fL 35.1-43.9 [facility] Work Phone: [phone] Erythrocytes (RBC) 4.62 10*6/uL Invalid Interpretation Code 4.6-6.2 [facility] Work Phone: [phone] Hematocrit (HCT) 42.7 % Invalid Interpretation Code 40-54 [facility] Work Phone: [phone] Hematocrit Volume Fraction (Bld) 42.7 % 40-54 [facility] Work Phone: [phone] Hemoglobin mass conc (Bld) 14.6 g/dL Invalid Interpretation Code 13.0-16.5 [facility] Work Phone: [phone] MCH 31.6 pg Invalid Interpretation Code 27.0-32.0 [facility] Work Phone: [phone] MCH Entitic mass (RBC) 31.6 pg 27.0-32.0 [facility] Work Phone: [phone] MCHC 34.2 G/GL Invalid Interpretation Code 32-36 [facility] Work Phone: [phone] MCHC mass conc (RBC) 34.2 G/GL 32-[address] [facility] Work Phone: [phone] MCV 92.4 fL Invalid Interpretation Code 80-94 [facility] Work Phone: [phone] MCV Entitic volume (RBC) 92.4 fL 80-94 [facility] Work Phone: [phone] Platelet mean volume Entitic volume (Bld) 9.5 fL 6.2-12.0 [facility] Work Phone: [phone] Platelets 226 10*3/mm3 Invalid Interpretation Code 150-450 [facility] Work Phone: [phone] Platelets #/vol (Bld) 226 10*3/mm3 150-450 [facility] Work Phone: [phone] PMV by Bowen 9.5 fL Invalid Interpretation Code 6.2-12.0 [facility] Work Phone: [phone] RBC #/vol (Bld) 4.62 10*6/uL 4.6-6.2 [facility] Work Phone: [phone] RDW-CA 12.8 % Invalid Interpretation Code 11.6-14.6 [facility] Work Phone: [phone] red blood cell distribution width, size density 42.1 fL Invalid Interpretation Code 35.1-43.9 [facility] Work Phone: [phone] WBC #/vol (Bld) 5.8 10*3/uL 4.4-11.0 [facility] Work Phone: [phone] WBC (Leukocytes) 5.8 10*3/uL Invalid Interpretation Code 4.4-11.0 [facility] Work Phone: [phone] Lab Report: [facility] 05-04-2016 Albumin mass conc 3.8 g/dL Invalid Interpretation Code 3.4-5.0 [facility] Work Phone: [phone] Albumin/Globulin mass ratio 1.1 {ratio} Invalid Interpretation Code 0.9-2.4 [facility] Work Phone: [phone] Alkaline phosphatase (ALP) 128 U/L High 45-117 [facility] Work Phone: [phone] ALP enzyme act/vol (Bld) 128 U/L High 45-117 [facility] Work Phone: [phone] ALT enzyme act/vol 20 U/L Invalid Interpretation Code 12-78 [facility] Work Phone: [phone] Anion gap molar conc 7 mmol/L 5-[address] [facility] Work Phone: [phone] AST enzyme act/vol 23 U/L Invalid Interpretation Code 15-37 [facility] Work Phone: [phone] Bilirubin mass conc 1.10 mg/dL High 0.20-1.00 [facility] Work Phone: [phone] Calcium mass conc 8.6 mg/dL 8.5-10.1 [facility] Work Phone: [phone] Chloride molar conc 106 mmol/L 98-107 [facility] Work Phone: [phone] CO2 ppres (BldV) 27.0 mmol/L 21.0-32.0 [facility] Work Phone: [phone] Creatinine mass conc 0.89 mg/dL 0.70-1.[address] [facility] Work Phone: [phone] EST GFR - AA 108 mL/min >60 [email or web address] Work Phone: [phone] GFR/1.73 sq M predicted among non-blacks MDRD vol rate/area (S/P/Bld) 89 mL/min/{1.73_m2} >60 [facility] Work Phone: [phone] Globulin 3.5 g/dL Invalid Interpretation Code 2.3-3.5 [facility] Work Phone: [phone] Globulin mass conc (S) 3.5 g/dL 2.3-3.5 [email or web address] Work Phone: [phone] Glucose mass conc 96 mg/dL 70-110 [email or web address] Work Phone: [phone] Potassium molar conc 3.8 mmol/L 3.5-5.[address] [facility] [address] [facility] Work Phone: [phone] Protein mass conc 7.3 g/dL Invalid Interpretation Code 6.4-8.2 [email or web address] Work Phone: [phone] Sodium molar conc 140 mmol/L 136-145 [email or web address] Work Phone: [phone] Urea nitrogen mass conc 13 mg/dL 7-18 [email or web address] Work Phone: [phone] Urea nitrogen/Creatinine mass ratio 14.6 RATIO 10-20 [employer] [facility] [facility] Work Phone: [phone] Lab Report: Lipid Profileon 05-04-2016 Cholesterol in HDL mass conc 36 mg/dL Low [facility] Work Phone: [phone] Cholesterol in LDL mass conc 57 mg/dL Invalid Interpretation Code 0-130 [email or web address] Work Phone: [phone] Cholesterol mass conc 114 mg/dL Invalid Interpretation Code 200 [email or web address] Work Phone: [phone] Lipoprotein.pre-beta mass conc 21 mg/dL Invalid Interpretation Code 5-40 [email or web address] Work Phone: [phone] Triglyceride mass conc 107 mg/dL Invalid Interpretation Code [email or web address] Work Phone: [phone] Lab Report: T4 Free Directon 05-04-2016 T4 free mass conc 1.19 ng/dL Invalid Interpretation Code 0.76-1.46 [email or web address] Work Phone: [phone] Lab Report: Thyroid Stim Hor samara (TSH)on 05-04-2016 Thyrotropin Qn 0.97 u[iU]/mL 0.358-3.74 [email or web address] Work Phone: [phone] Replaced Document: Kendrick VENCES Observationson 11-30-2015 EKG QRS axis -113 deg Invalid Interpretation Code [email or web address] Work Phone: [phone] electrocardiogram interpretation Sinus Bradycardia -WPW pattern. ABNORMAL Invalid Interpretation Code [employer] Phone: [phone] GE use only - for [employer] import when terms are not otherwise specified 464 ms Invalid Interpretation Code [employer] Phone: [phone] Interpretation Sinus Bradycardia -WPW pattern. ABNORMAL Invalid Interpretation Code [employer] Phone: [phone] P [place] 107 deg Invalid Interpretation Code [employer] Phone: [phone] P wave axis, electrocardiogram 107 deg Invalid Interpretation Code [employer] Phone: [phone] [place] Interval 184 ms Invalid Interpretation Code [email or web address] Work Phone: [phone] [place] interval, electrocardiogram 184 ms Invalid Interpretation Code [email or web address] Work Phone: [phone] Pulse (Heart Rate) 55 /min Invalid Interpretation Code [email or web address] Work Phone: [phone] QRS axis, electrocardiogram -113 deg Invalid Interpretation Code [email or web address] Work Phone: [phone] QRS Duration 186 ms Invalid Interpretation Code [employer] Phone: [phone] QRS duration, electrocardiogram 186 ms Invalid Interpretation Code [employer] Phone: [phone] QT Interval new path ms Invalid Interpretation Code [employer] Phone: [phone] QT interval, electrocardiogram new path ms Invalid Interpretation Code [employer] Phone: [phone] QTc [place] 464 ms Invalid Interpretation Code [email or web address] Work Phone: [phone] T [place] 90 deg Invalid Interpretation Code [facility] Work Phone: [phone] T wave axis, electrocardiogram 90 deg Invalid Interpretation Code [facility] Work Phone: [phone] Office Visiton 05-19-2015 Tobacco smoking status NHIS Never smoker Invalid Interpretation Code [facility] Work Phone: [phone] Tobacco use [facility] Never smoker Invalid Interpretation Code [facility] Work Phone: [phone] Lab Report: Liver Profileon 04-21-2015 Bilirubin.direct mass conc 0.19 mg/dL Invalid Interpretation Code 0.00-0.30 [facility] Work Phone: [phone] Lab Report: PSA,Total - Emma al Screenon 04-21-2015 prostate specific antigen (PSA) screening 0.86 ng/mL Invalid Interpretation Code 0.00-4.00 [facility] Work Phone: [phone] Protein mass conc 0.86 ng/mL 0.00-4.00 [facility] Work Phone: [phone] PSA,TOT SCREEN 0.86 ng/mL Invalid Interpretation Code 0.00-4.00 [facility] Work Phone: [phone] Lab Report: T4 Total, Thyrox inon 10-23-2014 T4 mass conc 10.2 ug/dL 4.5-12.1 [facility] Work Phone: [phone] Office Visiton 04-19-2014 cardiac risk group C Invalid Interpretation Code [facility] Work Phone: [phone] General cardiovascular disease 10Y risk [#] [place].D'Agostino N/A Invalid Interpretation Code [facility] Work Phone: [phone] Clinical Lists Update: Prelo transactional attorney 04-14-2014 Digoxin 1.00 ng/mL Invalid Interpretation Code [facility] Work Phone: [phone] Digoxin>12 hours p dose mass conc 1.00 ng/mL Invalid Interpretation Code [facility] Work Phone: [phone] Clinical Lists Update: Prelo transactional attorney 04-13-2014 Globulin 3.1 g/dL Invalid Interpretation Code [facility] Work Phone: [phone] Globulin mass conc (S) 3.1 g/dL [facility] Work Phone: [phone] Clinical Lists Update: Pacer Preloadon 04-30-2013 Left ventricular Ejection fraction 50 % Invalid Interpretation Code [facility] Work Phone: [phone] Lab Report: UAon 04-21-2013 Specific gravity Refractometry Relative Density (U) 1.015 Normal 1.002-1.030 [facility] Work Phone: [phone] Lab Report: PTon 04-16-2013 INR Coag RelTime (PPP) 1.1 {INR} Normal [facility] Work Phone: [phone] INR in blood by coagulation 1.1 {INR} Normal [facility] Work Phone: [phone] prothrombin time, actual/normal, ratio 13.3 SECONDS Normal 11.9-14.4 [facility] Work Phone: [phone] PTP 13.3 SECONDS Normal 11.9-14.4 [facility] Work Phone: [phone] Replaced Document: Kendrick E CG Observationson 04-10-2013 Pulse (Heart Rate) 453 ms Invalid Interpretation Code [facility] Work Phone: [phone] Clinical Lists Update: Prelo transactional attorney 04-08-2012 Glucose 90 mg/dL Invalid Interpretation Code [facility] Work Phone: [phone] Glucose fasting mass conc 90 mg/dL [facility] Work Phone: [phone] Glucose fasting mass conc (BldV) 90 mg/dL Invalid Interpretation Code [facility] Work Phone: [phone] Glucose mass conc 90 mg/dL Invalid Interpretation Code [facility] Work Phone: [phone] Vital Signs Date Time Vital Sign Value Performing Clinician Reinai dago 01-16-2022 14:52-0400 Body height 175.3 cm James Bernal APRN.YARN SKEINS EXAMINER Work Phone: [facility] 01-16-2022 14:52-0400 Body weight 67.41 kg James Bernal APRN.CNP Work Phone: [facility] 01-16-2022 14:52-0400 SaO2% (BldA) [Mass fraction] 97 % James Bernal APRN.CNP Work Phone: [facility] 09-20-2021 10:03-0400 Body height 175.3 cm Willie Matthews MD Work Phone: [facility] 09-20-2021 10:03-0400 Body weight 71.22 kg Willie Matthews MD Work Phone: [facility] 09-20-2021 10:03-0400 Diastolic blood pressure 70 mm[Hg] Willie Matthews MD Work Phone: [facility] 09-20-2021 10:03-0400 Heart rate 55 /min Willie Matthews MD Work Phone: [facility] 09-20-2021 10:03-0400 SaO2% (BldA) [Mass fraction] 98 % Willie Matthews MD Work Phone: [facility] 09-20-2021 10:03-0400 Systolic blood pressure 141 mm[Hg] Willie Matthews MD Work Phone: [facility] 02-12-2017 11:51-0400 BMI (Body Mass Index) 22.89 kg/m2 [facility] [employer] Work Phone: 02-12-2017 11:51-0400 BP Diastolic 60 mm[Hg] Valarieambar Duffy [facility] Work Phone: 02-12-2017 11:51-0400 BP Systolic 98 mm[Hg] Valarieambar Duffy [facility] Work Phone: 02-12-2017 11:51-0400 Weight 70.31 kg Valarieambar Duffy [facility] Work Phone: 01-02-2017 13:22-0400 BMI (Body Mass Index) 22.93 kg/m2 [facility] [employer] [facility] Work Phone: 01-02-2017 13:22-0400 BP Diastolic 58 mm[Hg] [facility] Work Phone: 01-02-2017 13:22-0400 BP Systolic 98 mm[Hg] [facility] Work Phone: 01-02-2017 13:22-0400 Height 175.26 cm [facility] Work Phone: 01-02-2017 13:22-0400 Pulse (Heart Rate) 56 /min [facility] Work Phone: 01-02-2017 13:22-0400 Respiratory Rate 20 /min [facility] Work Phone: 01-02-2017 13:22-0400 Weight [...] (Heart Rate) 60 /min Jena Santiago RN [facility] Work Phone: 07-04-2016 14:17-0500 Respiratory [...] 10:46-0400 Height 175.26 cm Jena Santiago RN [facility] Work Phone: Encounters Encounter Date Encounter Type Care Provider Facility Start: 11-15-2023 Refill Willie kaplan MD Work Phone: Neurology Comment on above: Refill Request Start: 09-02-2023 Refill Willie kaplan MD Work Phone: Neurology Comment on above: Refill Request Start: 09-19-2022 End: 09-19-2022 ambulatory [facility] Facility:[facility] Start: 08-27-2022 Telephone encounter Willie sagastume MD Work Phone: Neurological [place] Comment on above: Symptom Management Start: 01-22-2022 Refill James zavala MANUFACTURING QUALITY ENGINEER.YARN SKEINS EXAMINER Work Phone: Neurological [place] Comment on above: Refill Request Start: 01-16-2022 End: 01-16-2022 ambulatory JAMES BERNAL Facility:[facility] Start: 01-16-2022 End: 01-16-2022 Patient encounter procedure James Bernal MANUFACTURING QUALITY ENGINEER.YARN SKEINS EXAMINER Work Phone: Neurology Comment on above: Parkinson disease (H CC) (Primary Dx) Start: 09-20-2021 End: 09-20-2021 ambulatory WILLIE MATTHEWS Facility:[facility] Start: 09-20-2021 End: 09-20-2021 Patient encounter [...] PA-C Work Phone: Start: 11-30-2015 End: 11-30-2015 [facility] Karen Jorgensen PA-C Work Phone: [...] Aaron Perez MD Start: 05-19-2015 End: 05-19-2015 [facility] Aaron Perez MD Start: 05-19-2015 End: 05-19-2015 [...] Work Phone: Start: 11-11-2013 End: 10-05-2014 Pacer [facility] Karen Jorgensen PA-C Work Phone: Start: 10-12-2013 [...] MD Start: 04-10-2013 End: 10-05-2014 Chest x-ray Aarno Perez MD Start: 04-10-2013 End: 10-05-2014 Coagulation [...] Activity Detail Author Start: 01-05-2024 Influenza vaccination [facility] Start: 05-06-2023 Advance Directive Discussion Advance Directive Discussion [facility] Start: 05-06-2023 Behavioral Health Screening Behavioral Health Screening [facility] Start: 01-04-2023 Covid-19 Vaccine ( season) Covid-19 Vaccine ( season) [facility] Start: 01-04-2023 Influenza vaccination INFLUENZA (Season Ended) [facility] Start: 05-06-2022 ADVANCE DIRECTIVE DISCUSSION ADVANCE DIRECTIVE DISCUSSION [facility] Start: 05-06-2022 DEPRESSION ASSESSMENT DEPRESSION ASSESSMENT [facility] Start: 01-04-2022 Influenza vaccination [facility] Start: 07-07-2021 COVID-19 VACCINE (4 - Booster for Pfizer series) COVID-19 VACCINE (4 - Booster for Pfizer series) [facility] Start: 05-06-2021 ADVANCE DIRECTIVE DISCUSSION ADVANCE DIRECTIVE DISCUSSION [facility] Start: 05-04-2021 COVID-19 VACCINE (4 - Booster for Pfizer series) COVID-19 VACCINE (4 - Booster for Pfizer series) [facility] Start: 07-10-2017 End: 07-10-2017 Appointment Appointment [facility] Work Phone: Start: 07-03-2017 End: 07-03-2017 Appointment Appointment [facility] Work Phone: Start: 05-08-2017 End: 05-08-2017 Appointment Appointment [facility] Work Phone: Start: 02-12-2017 End: 02-12-2017 Appointment Appointment [facility] Work Phone: Start: 02-12-2017 End: 02-12-2017 Follow Up Appt Other Follow Up Appt Other [facility] Work Phone: Start: 01-23-2017 End: 01-23-2017 Appointment Appointment [facility] Work Phone: Start: 01-23-2017 End: 02-01-2017 Follow Up Appt 3 months Follow Up Appt 3 months [facility] Work Phone: Start: 01-23-2017 End: 02-01-2017 Pacer Clinic Pacer Clinic [facility] Work Phone: Start: 01-23-2017 End: [...] 6 weeks Follow Up Appt 6 weeks [facility] Work Phone: Start: 01-02-2017 End: 01-02-2017 MMM MMM [facility] Work Phone: Start: 01-02-2017 End: 01-02-2017 Nuclear stress test -Lexiscan Nuclear stress test -Lexiscan [facility] Work Phone: Start: 01-02-2017 End: 01-02-2017 Thyroid stimulating hormone (TSH) *TSH [facility] Work Phone: Start: 01-02-2017 End: 01-02-2017 Thyroxine (T4) *T4 (Total) [facility] Work Phone: Start: 01-02-2017 End: 01-02-2017 Appointment Appointment [email or web address] Work Phone: Start: 01-02-2017 End: 01-02-2017 *CBC with Differential *CBC with Differential [email or web address] Work Phone: Start: 01-02-2017 End: 01-02-2017 Follow Up Appt 6 weeks Follow Up Appt 6 weeks [facility] Work Phone: Start: 01-02-2017 End: 01-02-2017 MMM MMM [facility] Work Phone: Start: 01-02-2017 End: 01-02-2017 Nuclear stress test -Lexiscan Nuclear stress test -Lexiscan [email or web address] Work Phone: Start: 01-02-2017 End: 01-02-2017 Thyroid stimulating hormone (TSH) *TSH [facility] Work Phone: Start: 01-02-2017 End: 01-02-2017 Thyroxine (T4) *T4 (Total) [email or web address] Work Phone: Start: 11-15-2016 End: 11-16-2016 *BMP *BMP [email or web address] Work Phone: Start: 11-15-2016 End: 11-16-2016 *BMP *BMP [email or web address] Work Phone: Start: 10-17-2016 End: 10-17-2016 Appointment [...] 07-04-2016 End: 07-04-2016 Device Interrogation Device Interrogation [facility] Work Phone: Start: 07-04-2016 End: 12-25-2016 Follow Up Appt 3 months Follow Up Appt 3 months [facility] Work Phone: Start: 07-04-2016 End: 07-04-2016 Follow Up Appt 6 months Follow Up Appt 6 months [facility] Work Phone: Start: 07-04-2016 End: 07-04-2016 MMM MMM [facility] Work Phone: Start: 07-04-2016 End: 12-25-2016 Pacer Clinic Pacer Clinic [facility] Work Phone: Start: 07-04-2016 End: 07-04-2016 Device Interrogation Device Interrogation [facility] Work Phone: Start: 07-04-2016 End: 12-25-2016 Follow Up Appt 3 months Follow Up Appt 3 months [facility] Work Phone: Start: 07-04-2016 End: 07-04-2016 Follow Up Appt 6 months Follow Up Appt 6 months [facility] Work Phone: Start: 07-04-2016 End: 07-04-2016 MMM MMM [facility] Work Phone: Start: 07-04-2016 End: [...] 3 months Follow Up Appt 3 months [facility] Work Phone: Start: 03-19-2016 End: 07-04-2016 Pacer Clinic Pacer Clinic [facility] Work Phone: Start: 12-12-2015 End: 12-25-2016 Follow Up Appt 3 months Follow Up Appt 3 months [facility] Work Phone: Start: 12-12-2015 End: 12-25-2016 Pacer Clinic Pacer Clinic [facility] Work Phone: Start: 12-12-2015 End: 12-25-2016 Follow Up Appt 3 months Follow Up Appt 3 months [facility] Work Phone: Start: 12-12-2015 End: 12-25-2016 Pacer Clinic Pacer Clinic [facility] Work Phone: Start: 11-30-2015 End: 11-30-2015 Ecg routine ecg w/least 12 lds w/i&r EKG (In office) [facility] Work Phone: Start: 11-30-2015 End: 11-30-2015 Follow Up Appt 6 months Follow Up Appt 6 months [facility] Work Phone: Start: 11-30-2015 End: 11-30-2015 PFM PFM [facility] Work Phone: Start: 11-30-2015 End: 11-30-2015 Electrocardiogram, complete EKG (In office) [facility] Work Phone: Start: 11-30-2015 End: 11-30-2015 Follow Up Appt 6 months Follow Up Appt 6 months [facility] Work Phone: Start: 11-30-2015 End: 11-30-2015 PFM PFM [facility] Work Phone: Start: 10-21-2015 End: [...] 3 months Follow Up Appt 3 months [facility] Work Phone: Start: 09-12-2015 End: 11-23-2015 Pacer Clinic Pacer Clinic [facility] Work Phone: Start: 09-12-2015 End: 11-23-2015 Follow Up Appt 3 months Follow Up Appt 3 months [facility] Work Phone: Start: 09-12-2015 End: 11-23-2015 Pacer Clinic Pacer Clinic [facility] Work Phone: Start: 06-13-2015 End: 11-23-2015 Follow Up Appt 3 months Follow Up Appt 3 months [facility] Work Phone: Start: 06-13-2015 End: 11-23-2015 Pacer Clinic Pacer Clinic [facility] Work Phone: Start: 06-13-2015 End: 11-23-2015 Follow Up Appt 3 months Follow Up Appt 3 months [facility] Work Phone: Start: 06-13-2015 End: 11-23-2015 Pacer Clinic Pacer Clinic [facility] Work Phone: Start: 05-19-2015 End: 05-19-2015 Follow Up Appt 6 months Follow Up Appt 6 months [facility] Work Phone: Start: 05-19-2015 End: 05-19-2015 MMM MMM [facility] Work Phone: Start: 05-19-2015 End: 05-19-2015 Follow Up Appt 6 months Follow Up Appt 6 months [facility] Work Phone: Start: 05-19-2015 End: 05-19-2015 MMM MMM [facility] Work Phone: Start: 04-18-2015 End: 04-21-2015 *Hepatic Function Panel *Hepatic Function Panel [facility] Work Phone: Start: 04-18-2015 End: 04-21-2015 Lipid panel [AGGREGATE] *Lipid Profile CC PCP [facility] Work Phone: Start: 04-18-2015 End: 04-21-2015 *Hepatic Function Panel *Hepatic Function Panel [facility] Work Phone: Start: 04-18-2015 End: 04-21-2015 Lipid panel [AGGREGATE] *Lipid Profile CC PCP [facility] Work Phone: Start: 03-07-2015 End: 11-23-2015 Follow Up Appt 3 months Follow Up Appt 3 months [facility] Work Phone: Start: 03-07-2015 End: 11-23-2015 Pacer Clinic Pacer Clinic [facility] Work Phone: Start: 03-07-2015 End: 11-23-2015 Follow Up Appt 3 months Follow Up Appt 3 months [facility] Work Phone: Start: 03-07-2015 End: 11-23-2015 Pacer Clinic Pacer Clinic [facility] Work Phone: Start: 11-19-2014 End: 11-23-2015 Follow Up Appt 3 months Follow Up Appt 3 months [facility] Work Phone: Start: 11-19-2014 End: 11-23-2015 Pacer Clinic Pacer Clinic [facility] Work Phone: Start: 11-19-2014 End: 11-23-2015 Follow Up Appt 3 months Follow Up Appt 3 months [facility] Work Phone: Start: 11-19-2014 End: 11-23-2015 Pacer Clinic Pacer Clinic [facility] Work Phone: Start: 10-19-2014 End: 10-25-2014 CBC W Auto Differential panel - Blood *CBC without Diff [facility] Work Phone: Start: 10-19-2014 End: 10-19-2014 Ecg routine ecg w/least 12 lds w/i&r EKG (In office) [facility] Work Phone: Start: 10-19-2014 End: 10-19-2014 Follow Up Appt 6 months Follow Up Appt 6 months [facility] Work Phone: Start: 10-19-2014 End: 10-19-2014 Nuclear stress test -Lexiscan Nuclear stress test -Lexiscan [facility] Work Phone: Start: 10-19-2014 End: 10-19-2014 PFM PFM [facility] Work Phone: Start: 10-19-2014 End: 10-25-2014 Thyroid stimulating hormone (TSH) *TSH [facility] Work Phone: Start: 10-19-2014 End: 10-25-2014 Thyroxine (T4) *T4 (Total) [facility] Work Phone: Start: 10-19-2014 End: 10-25-2014 CBC W Auto Differential panel - Blood *CBC without Diff [facility] Work Phone: Start: 10-19-2014 End: 10-19-2014 Electrocardiogram, complete EKG (In office) [facility] Work Phone: Start: 10-19-2014 End: 10-19-2014 Follow Up Appt 6 months Follow Up Appt 6 months [facility] Work Phone: Start: 10-19-2014 End: 10-19-2014 Nuclear stress test -Lexiscan Nuclear stress test -Lexiscan [facility] Work Phone: Start: 10-19-2014 End: 10-19-2014 PFM PFM [facility] Work Phone: Start: 10-19-2014 End: 10-25-2014 Thyroid stimulating hormone (TSH) *TSH [facility] Work Phone: Start: 10-19-2014 End: 10-25-2014 Thyroxine (T4) *T4 (Total) [facility] Work Phone: Start: 08-16-2014 End: 10-05-2014 Follow Up Appt 3 months Follow Up Appt 3 months [facility] Work Phone: Start: 08-16-2014 End: 10-05-2014 Pacer Clinic Pacer Clinic [facility] Work Phone: Start: 08-16-2014 End: 10-05-2014 Follow Up Appt 3 months Follow Up Appt 3 months [facility] Work Phone: Start: 08-16-2014 End: 10-05-2014 Pacer Clinic Pacer Clinic [facility] Work Phone: Start: 05-17-2014 End: 10-05-2014 Follow Up Appt 3 months Follow Up Appt 3 months [facility] Work Phone: Start: 05-17-2014 End: 10-05-2014 Pacer Clinic Pacer Clinic [facility] Work Phone: Start: 05-17-2014 End: 10-05-2014 Follow Up Appt 3 months Follow Up Appt 3 months [facility] Work Phone: Start: 05-17-2014 End: 10-05-2014 Pacer Clinic Pacer Clinic [facility] Work Phone: Start: 04-19-2014 End: 10-15-2014 *Hepatic Function Panel *Hepatic Function Panel [facility] Work Phone: Start: 04-19-2014 [...] Lipid panel [AGGREGATE] *Lipid Profile CC PCP [facility] Work Phone: Start: 04-19-2014 End: 04-19-2014 MMM MMM [facility] Work Phone: Start: 04-05-2014 End: 10-05-2014 *Hepatic Function Panel *Hepatic Function Panel [facility] Work Phone: Start: 04-05-2014 End: 10-05-2014 Lipid panel [AGGREGATE] *Lipid Profile CC PCP [facility] Work Phone: Start: 04-05-2014 End: 10-05-2014 *Hepatic Function Panel *Hepatic Function Panel [facility] Work Phone: Start: 04-05-2014 End: 10-05-2014 Lipid panel [AGGREGATE] *Lipid Profile CC PCP [facility] Work Phone: Start: 02-11-2014 End: 10-05-2014 Follow Up Appt 3 months Follow Up Appt 3 months [facility] Work Phone: Start: 02-11-2014 End: 10-05-2014 Pacer Clinic Pacer Clinic [facility] Work Phone: Start: 02-11-2014 End: 10-05-2014 Follow Up Appt 3 months Follow Up Appt 3 months [facility] Work Phone: Start: 02-11-2014 End: 10-05-2014 Pacer Clinic Pacer Clinic [facility] Work Phone: Start: 11-11-2013 End: 10-05-2014 Follow Up Appt 3 months Follow Up Appt 3 months [facility] Work Phone: Start: 11-11-2013 End: 10-05-2014 Pacer Clinic Pacer Clinic [facility] Work Phone: Start: 11-11-2013 End: 10-05-2014 Follow Up Appt 3 months Follow Up Appt 3 months [facility] Work Phone: Start: 11-11-2013 End: 10-05-2014 Pacer Clinic Pacer Clinic [facility] Work Phone: Start: 10-12-2013 End: 10-12-2013 *Hepatic Function Panel *Hepatic Function Panel [facility] Work Phone: Start: 10-12-2013 End: 10-12-2013 Follow Up Appt 6 months Follow Up Appt 6 months [facility] Work Phone: Start: 10-12-2013 End: 10-12-2013 Lipid panel [AGGREGATE] *Lipid Profile CC PCP [facility] Work Phone: Start: 10-12-2013 End: 10-12-2013 PFM PFM [facility] Work Phone: Start: 10-12-2013 End: 10-12-2013 *Hepatic Function Panel *Hepatic Function Panel [facility] Work Phone: Start: 10-12-2013 End: 10-12-2013 Follow Up Appt 6 months Follow Up Appt 6 months [facility] Work Phone: Start: 10-12-2013 End: 10-12-2013 Lipid panel [AGGREGATE] *Lipid Profile CC PCP [facility] Work Phone: Start: 10-12-2013 End: 10-12-2013 PFM PFM [facility] Work Phone: Start: 10-04-2013 End: 10-13-2013 *Hepatic Function Panel *Hepatic Function Panel [facility] Work Phone: Start: 10-04-2013 End: 10-13-2013 Lipid panel [AGGREGATE] *Lipid Profile CC PCP [facility] Work Phone: Start: 10-04-2013 End: 10-13-2013 *Hepatic Function Panel *Hepatic Function Panel [facility] Work Phone: Start: 10-04-2013 End: 10-13-2013 Lipid panel [AGGREGATE] *Lipid Profile CC PCP [facility] Work Phone: Start: 08-05-2013 End: 10-01-2013 Follow Up Appt 2 months Follow Up Appt 2 months [facility] Work Phone: Start: 08-05-2013 [...] 05-04-2013 End: 10-01-2013 Pacer Clinic Pacer Clinic [facility] Work Phone: Start: 05-04-2013 End: [...] Phone: Start: 04-10-2013 End: 10-05-2014 *BMP *BMP [facility] Work Phone: Start: 04-10-2013 End: 10-05-2014 *Hepatic Function Panel *Hepatic Function Panel [facility] Work Phone: Start: 04-10-2013 End: 10-05-2014 *UA - Urinalysis w/o Micro *UA - Urinalysis w/o Micro [facility] Work Phone: Start: 04-10-2013 End: 10-05-2014 CBC W Auto Differential panel - Blood *CBC without Diff [facility] Work Phone: Start: 04-10-2013 End: 10-05-2014 Chest x-ray X-Ray, Chest, PA & Lateral [facility] Work Phone: Start: 04-10-2013 End: 04-20-2013 Ecg routine ecg w/least 12 lds w/i&r EKG (In office) [facility] Work Phone: Start: 04-10-2013 End: 10-01-2013 Follow Up Appt 3 months Follow Up Appt 3 months [facility] Work Phone: Start: 04-10-2013 End: 04-10-2013 Follow Up Appt 6 months Follow Up Appt 6 months [facility] Work Phone: Start: 04-10-2013 End: 10-05-2014 INR Coag RelTime (PPP) *PT/INR [facility] Work Phone: Start: 04-10-2013 End: 10-05-2014 Lipid panel [AGGREGATE] *Lipid Profile CC PCP [facility] Work Phone: Start: 04-10-2013 End: 04-10-2013 MMM MMM [email or web address] Work Phone: Start: 04-10-2013 End: 04-10-2013 Pacemaker Generator Change Pacemaker Generator Change [email or web address] Work Phone: Start: 04-10-2013 End: 10-01-2013 Pacer Clinic Pacer Clinic [email or web address] Work Phone: Start: 04-10-2013 End: 10-05-2014 *BMP *BMP [email or web address] Work Phone: Start: 04-10-2013 End: 10-05-2014 *Hepatic Function Panel *Hepatic Function Panel [facility] Work Phone: Start: 04-10-2013 End: 10-05-2014 *UA - Urinalysis w/o Micro *UA - Urinalysis w/o Micro [facility] Work Phone: Start: 04-10-2013 End: 10-05-2014 CBC W Auto Differential panel - Blood *CBC without Diff [email or web address] Work Phone: Start: 04-10-2013 End: 10-05-2014 Chest x-ray X-Ray, Chest, PA & Lateral [email or web address] Work Phone: Start: 04-10-2013 End: 10-05-2014 Coagulation factor induced.INR assay in platelet poor plasma *PT/INR [facility] Work Phone: Start: 04-10-2013 End: 04-20-2013 Electrocardiogram, complete EKG (In office) [facility] Work Phone: Start: 04-10-2013 End: 10-01-2013 Follow Up Appt 3 months Follow Up Appt 3 months [facility] Work Phone: Start: 04-10-2013 End: 04-10-2013 Follow Up Appt 6 months Follow Up Appt 6 months [facility] Work Phone: Start: 04-10-2013 End: 10-05-2014 Lipid panel [AGGREGATE] *Lipid Profile CC PCP [facility] Work Phone: Start: 04-10-2013 End: 04-10-2013 MMM MMM [facility] Work Phone: Start: 04-10-2013 End: 04-10-2013 Pacemaker Generator Change Pacemaker Generator Change [facility] Work Phone: Start: 04-10-2013 End: 10-01-2013 Pacer Clinic Pacer Clinic [facility] Work Phone: Start: 12-31-2012 End: 10-01-2013 Follow Up Appt 3 months Follow Up Appt 3 months [facility] Work Phone: Start: 12-31-2012 End: 10-01-2013 Pacer Clinic Pacer Clinic [facility] Work Phone: Start: 12-31-2012 End: 10-01-2013 Follow Up Appt 3 months Follow Up Appt 3 months [facility] Work Phone: Start: 12-31-2012 End: 10-01-2013 Pacer Clinic Pacer Clinic [facility] Work Phone: Start: 10-04-2012 End: [...] Start: 09-26-2012 End: 09-26-2012 Echocardiography Echocardiogram (limited) [facility] Work Phone: Start: 09-26-2012 End: 09-26-2012 Follow Up Appt 3 months Follow Up Appt 3 months [facility] Work Phone: Start: 09-26-2012 End: 09-26-2012 Follow Up Appt 6 months Follow Up Appt 6 months [facility] Work Phone: Start: 09-26-2012 [...] 09-26-2012 End: 09-26-2012 Pacer Clinic Pacer Clinic [facility] Work Phone: Start: 09-26-2012 End: 09-26-2012 PFM PFM [facility] Work Phone: Start: 04-05-2012 End: 11-08-2011 *Hepatic Function Panel *Hepatic Function Panel [facility] Work Phone: Start: 04-05-2012 End: 11-08-2011 Lipid panel [AGGREGATE] *Lipid Profile [facility] Work Phone: Start: 04-05-2012 End: 11-08-2011 *Hepatic Function Panel *Hepatic Function Panel [facility] Work Phone: Start: 04-05-2012 End: 11-08-2011 Lipid panel [AGGREGATE] *Lipid Profile [facility] Work Phone: Start: 02-25-2012 End: 10-01-2013 Follow Up Appt 6 months Follow Up Appt 6 months [facility] Work Phone: Start: 02-25-2012 End: 02-25-2012 Nuclear stress test -adenosine Nuclear stress test -adenosine [facility] Work Phone: Start: 02-25-2012 End: 10-01-2013 Follow Up Appt 6 months Follow Up Appt 6 months [facility] Work Phone: Start: 02-25-2012 [...] Start: 08-23-2011 End: 08-23-2011 Echocardiography Echocardiogram (complete) [facility] Work Phone: Start: 08-23-2011 End: 10-01-2013 Follow Up Appt 6 months Follow Up Appt 6 months [facility] Work Phone: Start: 08-23-2011 End: 08-23-2011 Echocardiography Echocardiogram (complete) [facility] Work Phone: Start: 08-23-2011 End: 10-01-2013 Follow Up Appt 6 months Follow Up Appt 6 months [facility] Work Phone: Start: 09-24-2008 PNEUMOCOCCAL: 65+ (1 - PCV) PNEUMOCOCCAL: 65+ (1 - PCV) [facility] Start: 09-24-2008 PNEUMOVAX AGE 65 AND OVER WITH 5YR LOOKBACK (#1) PNEUMOVAX AGE 65 AND OVER WITH 5YR LOOKBACK (#1) [facility] Start: 2003 RSV Vaccine (1 - 1-dose 60+ series) RSV Vaccine (1 - 1-dose 60+ series) [facility] Start: 09-24-1993 SHINGRIX VACCINE (1 of 2) SHINGRIX VACCINE (1 of 2) [facility] Start: 09-24-1988 DIABETES SCREEN DIABETES SCREEN [facility] Start: 09-24-1988 Diabetes Screening Diabetes Screening [facility] Start: 09-24-1962 Urine microalbumin profile [facility] Start: 09-24-1961 Anxiety Screening Anxiety Screening [facility] Start: 09-24-1961 Depression Screening Depression Screening [facility] Start: 09-24-1961 HEPATITIS C SCREENING HEPATITIS C SCREENING [facility] Start: 1955 Adult depression screening assessment DEPRESSION SCREENING [facility] Patient Education HYPERLIPIDEMIA , HYPERTENSION [facility] Work Phone: [facility] Immunizations Immunization Date Immunization Notes Care Provider Fa narcisa 05-11-2022 influenza virus vacc ine, unspecified formulation Willie Matthews MD Work Phone: [facility] Payers Date Payer Category Payer Medicare HU[employer]NA MEDICARE HU[employer]NA MEDICARE PPO [id number] 2019-Present [phone] [address] [place] [address] PPO [id number] 2019 Medicare HUMANA MEDICARE HU[employer]NA MEDICARE PPO [id number] 2019-Present [phone] [address] [address] [place] [address] PPO [id number] 2019 Medicare [id number] Social History Date Type Detail Facility Start: 01-16-2022 Tobacco smoking stat us ARIS Never smoked tobacco [facility] Start: 09-20-2021 End: 09-19-2022 Alcohol intake Current non-drinker of alcohol (finding) [facility] Start: 1945 Sex Assigned At Not on file [facility] Start: 09-10-2021 End: 01-16-2022 Exposure to SARS-CoV-2 (event) Not sure [facility] Start: 01-16-2022 Tobacco use and exposure Smoke less tobacco non-user [facility] Start: 09-19-2022 History of Social function [facility] Start: 09-19-2022 Tobacco use panel [facility] National Score (1-10 0), lower number is lower risk 54 [facility] Clinical Notes 09-20-2021 to 11-18-2023 Telephone Encounter [...] times daily. Authorizing Provider: WILLIE MATTHEWS MD [facility] 11-18-2023 Miscellaneous Notes Please advise patient he [...] Rosetta Valiente MA documented in this encounter [facility] 11-15-2023 Telephone encounter Note Patient has been [...] Please review and advise. Rosetta Valiente MA [facility] 09-16-2023 Telephone encounter Note Called and spoke with Patient's spouse. Relayed message below. An appointment was not scheduled at this time. Spouse states they will call back to schedule at another time. Edelmira Farr [facility] 09-16-2023 Miscellaneous Notes Called and spoke with [...] Rosetta Valiente MA documented in this encounter [facility] 09-02-2023 Telephone encounter Note Please advise patient he is overdue for follow-up and please facilitate scheduling appointment with me or OLE (has seen James). The following approved medication requests have been transmitted electronically. Requested Prescriptions Signed Prescriptions Disp Refills carbidopa-levodopa (SINEMET 25-100) 25-100 mg per tablet 540 tablet 0 Sig: Take 1.5 tablets by mouth four times daily. Authorizing Provider: WILLIE MATTHEWS MD [facility] 09-02-2023 Telephone encounter Note Patient has been [...] Please review and advise. Rosetta Valiente MA [facility] 09-19-2022 Note HNO ID: [id number] Author: Willie Matthews MD Service: ? Author [...] male patient. Sean (more content not included)... [facility] 08-28-2022 Miscellaneous Notes Attempted to return [...] for him now. Number to return call [phone] Okay to leave a message ? Last office visit 01/16/22 with James No visit scheduled. Thank you calling [facility]. You will receive a return call within 48 hours ( or 2 business days if close to the weekend). If you feel that this is an urgent issue and needs immediate attention, it is recommended that you contact your primary care provider office or proceed to your nearest Urgent Care Center of Emergency Room ED for evaluation/treatment. documented in this encounter [facility] 01-22-2022 Miscellaneous Notes Request from patient requesting refill. RX prescribed by previous neurologist. [facility] Last OV: 01/16/22 with SS Future OV: 07/16/22 with KA Requested Prescriptions Pending Prescriptions Disp Refills sertraline (ZOLOFT) 100 mg tablet 90 tablet 3 Sig: Take 1 tablet by mouth once daily. Jerica Mclaughlin documented in this encounter [facility] 01-16-2022 Note HNO ID: [id number] Author: James Bernal APRN.[employer]ARN SKEINS EXAMINER Service: ? Author Type: Nurse Practitioner Type: [...] to him later. Loses train of thought. Edwards Cognitive Assessment (MoCA): 15 (01/16/2022 3:30 PM) [...] of exam Medicatio (more content not included)... [facility] 01-16-2022 Instructions James Bernal APRN.[facility] - 01/16/2022 4:03 PM EDT For your [...] potential for hallucinations. documented in this encounter [facility] 01-16-2022 History of Present illness Narrative CNR-MOVEMENT [...] to him later. Loses train of thought. Edwards Cognitive Assessment (MoCA): 15 (01/16/2022 3:30 PM) [...] not have Parkinson's disease. I did a Beatrice today, and he scored a 15. Due [...] potential for hallucinations. Level of service : 18748 (40-54 min). Time spent 45 min on the day of service, which included preparing to see the patient, uerd-tr-ysnz patient care, completing clinical documentation, obtaining and/or [...] call with any questions. Sincerely, James Bernal APRN.[employer]INS EXAMINER documented in this encounter [facility] 09-20-2021 Note HNO ID: [id number] Author: Willie Matthews MD Service: ? Author [...] one(1) tablet daily. (more content not included)... [facility] 09-20-2021 Instructions Willie Matthews MD - [...] or you can send a message through [employer]. You can also now schedule and select appointments through [employer]. Willie Matthews MD Constipation and Other Gastrointestinal [...] future constipation. Treatments fall into two categories: ozhq-tml-jxulryd and prescription therapies. Remember: consult with your [...] day and your own convenience and preference. [employer] Thdv-qlh-seqxwrr treatments for constipation can be purchased at [...] It also comes as a capsule ([place] Tapps Smooth Move ). ving with PD Constipation [...] easier to pass. These can be used assistant terminal manager but should not be used in combination [...] after other remedies have failed. Among the wxck-knt-uutszir laxatives, they are most likely to cause [...] psyllium (Perdiem ). Common Side Effects of Dwlt-nqp-Ekszfjm Products for Constipation Emollient (Stool Softeners) Skin [...] any side effects listed. Prescription Products When mqzp-djp-eictaxz remedies fail, your healthcare provider may recommend [...] Stimulant X Bisacodyl (Dulcolax ) Stimulant X [place] Oil Stimulant X Cellulose (Unifiber ) Bulk [...] (Senokot ) Stimulant X Adapted from: [facility] Website, accessed August 30, 2015, www.MeMed/health/druginfo rmation/ [id number] Special Precautions For your safety, consult your [...] For more information and resources see [email or web address].parkinson.org/. [facility] is a Center of Excellence for the Parkinson s Foundation. documented in this encounter [facility] 09-20-2021 History of Present illness Narrative CNR-MOVEMENT [...] now. Diagnosed around that time. Neurologist left [facility]. Would like walking to be better. Doesn't [...] Coronary atherosclerosis of unspecified type of vessel, [place] or graft, Essential hypertension, benign, Other and [...] 2+ 2+ Achilles 1+ 1+ Coordination Right: Tlxagv-km-qxba normal. Rapid alternating movement normal. Left: Skbxmg-bo-rihn normal. Rapid alternating movement normal. Movement Disorders [...] Willie Matthews MD documented in this encounter [facility] Evaluation note Diagnosis Parkinson disease (HCC)- Primary Paralysis agitans RBD (REM behavioral disorder) REM sleep behavior disorder Gait instability Abnormality of gait [facility] Diagnosis Parkinson disease (HCC)- Primary Paralysis agitans [facility] Diagnosis Parkinson disease (HCC) Paralysis agitans documented in this encounter [facility] Reason for Referral Specialty Diagnoses / Procedures Referred By Ayaz jimenez Referred To Contact Diagnoses Parkinson disease (HCC) Procedures PROVIDER ORDERED FOLLOW UP OFFICE/OUTPATIENT [facility] 60-74 MINUTES Willie Matthews MD [address] [address] Referral ID Status Reason Start Date Expiration Date Visits Requested Visits Authorized [id number] Authorized PCP Requested Referral 12/21/2021 09/20/2022 1 1 Specialty Diagnoses / Procedures Referred By Ayaz jimenez Referred To Contact [facility] Diagnoses Parkinson disease (HCC) Gait instability Procedures CONSULT TO PHYSICAL THERAPY PHYSICAL THERAPY EVALUATION HIGH COMPLEX 45 MINS Willie Matthews MD [address] [address] [facility] [address] [address] Referral ID Status Reason Start Date Expiration Date Visits Requested Visits Authorized [id number] Pending Review Auto-Generat ed Referral 09/20/2021 09/20/2022 1 1 Specialty Diagnoses / Procedures Referred By Ayaz t Referred To Contact Diagnoses Parkinson disease (HCC) Procedures CONSULT TO [facility] James Bernal APRN.[employer] SKEINS EXAMINER [address] [place] [address] [facility] [address] [place] [address] Referral ID Status Reason Start Date Expiration Date Visits Requested Visits Authorized [id number] Authorized PCP Requested Referral 01/16/2022 04/16/2022 1 1 Specialty Diagnoses / Procedures Referred By Ayaz jimenez Referred To Contact Diagnoses Parkinson disease (HCC) Procedures PROVIDER ORDERED FOLLOW UP OFFICE/OUTPATIENT [facility] 60 MINUTES Willie Matthews MD [address] [place] [id number] Referral ID Status Reason Start Date Expiration Date Visits Requested Visits Authorized [id number] Authorized PCP Requested Referral 10/02/2023 09/01/2024 1 1 Referral ID Status Reason Start Date Expiration Date Visits Requested Visits Authorized [id number] Authorized PCP Requested Referral 12/19/2023 11/17/2024 1 [...] or prosecute any alcohol or drug abuse patient.[facility] the event this information is protected by the Federal Confidentiality of Alcohol and Drug Abuse Patient Records regulations: The Federal rules restrict any use of the information to criminally investigate or prosecute any alcohol or drug abuse patient.[facility] the event this information is protected by the Federal Confidentiality of Alcohol and Drug Abuse Patient Records regulations: The Federal rules restrict any use of the information to criminally investigate or prosecute any alcohol or drug abuse patient.[facility] the event this information is protected by the Federal Confidentiality of Alcohol and Drug Abuse Patient Records regulations: The Federal rules restrict any use of the information to criminally investigate or prosecute any alcohol or drug abuse patient.[facility] the event this information is protected by the Federal Confidentiality of Alcohol and Drug Abuse Patient Records regulations: The Federal rules restrict any use of the information to criminally investigate or prosecute any alcohol or drug abuse patient.[facility] the event this information is protected by the Federal Confidentiality of Alcohol and Drug Abuse Patient Records regulations: The Federal rules restrict any use of the information to criminally investigate or prosecute any alcohol or drug abuse patient.[facility] Reason for Visit (unrecogniz ed section and content) Reason Comments New Patient Parkinson's Disease Reason Comments Parkinson's Disease Specialty Diagnoses / Procedures Referred By Ayaz t Referred To Contact Diagnoses Parkinson disease (HCC) Procedures PROVIDER ORDERED FOLLOW UP OFFICE/OUTPATIENT [facility] 60-74 MINUTES Willie Matthews MD [address] [facility] [address] [place] [address] Referral ID Status Reason Start Date Expiration Date V isits Requested Visits Authorized [id number] Closed PCP Requested Referral 12/21/2021 09/20/2022 1 1 Reason Onset Date Comments Refill Request 01/22/2022 Reason Comments Symptom Management Reason Onset Date Comments Refill Request 09/02/2023 Reason Onset Date Comments Refill Request 11/15/2023 Care Teams (unrecognized sec tion and content) Mobile Sales Assistant Relationship Specialty Start Date End Date Luli Hays PCP - General 08/21/00 Mobile Sales Assistant Relationship Specialty Start Date End Date Luli Hays PCP - General 08/21/00 Mobile Sales Assistant Relationship Specialty Start Date End Date Luli Hays PCP - General 08/21/00 Mobile Sales Assistant Relationship Specialty Start Date End Date Luli Hays PCP - General 08/21/00 James Bernal, MANUFACTURING QUALITY ENGINEER.[employer] EXAMINER [address] [place] [address] Specialty Oil Truck Driver Neurology 02/21/22 Rina Irvin, MANUFACTURING QUALITY ENGINEER.[employer]KEINS EXAMINER [address] [place] [address] Specialty Oil Truck Driver Neurology 05/21/22 Mobile Sales Assistant Relationship Specialty Start Date End Date Luli Hays PCP - General 08/21/00 James Bernal, MANUFACTURING QUALITY ENGINEER.YARN SKEINS EXAMINER [address] [place], [place] [id number] Specialty Oil Truck Driver Neurology 02/21/22 Rina Irvin, RENATA.YARN SKEINS EXAMINER [address] [place], [place] [id number] Specialty Oil Truck Driver Neurology 05/21/22 Willie Matthews MD [address] [id number] Specialty Oil Truck Driver Neurology 04/24/23 (unrecognized sect ion and content) No Status Records Found INFORMATION SOURCE (unrecogn ized section and content) DATE CREATED AUTHOR 09/20/2022 [facility] FOR RECORDS PERTAINING TO PATIENTS WHO [...] BE BASED ON THE PRIMARY CLINICAL RECORDS. [facility] [employer] provides no warranty or guarantee of the accuracy or completeness of information in this document.
--- NOTE | 2024-01-18 19:36 | PCM.HP.STD ---
HPI - General General Date of Admission: 01/18/24 HPI Narrative BRUCE LUND, is a 78 M who presents to the hospital after syncopal episode at home. He was not feeling unwell prior to syncopal episode but he was sitting outside in the sun and was not staying very well-hydrated, he does have a history of systolic heart failure and is on diuretics. After sitting about 2 hours they went to get him up to move him into the shade and that is when he passed out upon standing. He does have a history of a pacemaker that was recently changed and in the ER his pacemaker was interrogated and was negative for any kind of arrhythmias. He does have an CHRIS with a creatinine of 1.83 with a baseline of around 1.1 he was given some fluid in the ER and is feeling a little bit better. [facility] Medical History (Updated 01/18/24 @ 19:[address] 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 Abnormal electrocardiogram Nonspecific abnormal unspecified cardiovascular function study Paroxysmal supraventricular tachycardia by electrocardiogram (ECG) Home Medications ?Medication ?Instructions ?Recorded ?Last Taken ?Type aspirin 81 mg tablet,delayed 81 mg PO DAILY@0800 04/21/13 12/30/23 History release nitroglycerin 0.4 mg sublingual 0.4 mg sublingual Q5M PRN Chest 06/12/19 Unknown Rx tablet Pain #25 tabs albuterol sulfate 90 mcg/actuation 2 puff inhalation Q6H PRN 01/27/20 Unknown Rx aerosol inhaler shortness of breath or wheezing #6.7 grams ascorbic acid (vitamin C) 500 mg 500 mg PO DAILY 10/31/20 Unknown History tablet melatonin 10 mg tablet 10 mg PO HS PRN insomnia 10/23/21 Unknown History cholecalciferol (vitamin D3) 250 250 mcg PO DAILY 05/28/22 Unknown History mcg (10,000 unit) capsule atorvastatin 80 mg tablet See Rx Instructions .Route 05/17/23 Unknown Rx .COMPLEX #90 tabs carbidopa 25 mg-levodopa 100 mg 2 tab PO .qid 06/25/23 12/31/23 History tablet metoprolol succinate 50 mg 25 mg PO DAILY 06/25/23 12/31/23 History tablet,extended release 24 hr ramipril 10 mg capsule 10 mg PO BID 06/25/23 12/31/23 History Handicap Placcard #1 ea 07/25/23 Unknown Rx spironolactone 25 mg tablet 25 mg PO DAILY #90 tabs 10/15/23 Unknown Rx finasteride 5 mg tablet 5 mg PO DAILY 12/19/23 12/31/23 History furosemide 40 mg tablet 20 mg (1/2 x 40 mg) PO DAILY #5 12/19/23 12/31/23 Rx tabs indapamide 1.25 mg tablet 1.25 mg PO QAM 12/19/23 12/31/23 History mirtazapine 30 mg tablet 30 mg PO DAILY 12/19/23 Unknown History tamsulosin 0.4 mg capsule 0.4 mg PO DAILY 12/19/23 Unknown History Allergy/AdvReac Type Severity Reaction Status Date / Time adhesive tape Allergy NEEDS Verified 12/19/23 14:32 FOLLOW-UP Family History Mother Hypertension Father COPD (chronic obstructive pulmonary disease) CAD (coronary artery disease) Hx CABG CVA (cerebral vascular accident) Brother CAD (coronary artery disease) Diabetes Hypertension Sister Hypertension Son HLD (hyperlipidemia) Other Heart disease Surgical History (Updated 01/16/24 @ 16:14 by Kyara Santiago) History of open reduction and internal fixation (ORIF) procedure (~1979) History of bilateral inguinal hernia repair History of right hip replacement History of percutaneous transluminal coronary angioplasty (~03/21/10) S/P implantation of automatic cardioverter/defibrillator (AICD) Aortocoronary bypass status (~01/23/95) Social History Smoking Status: Never smoker alcohol intake: never substance use type: does not use caffeine: Yes Type: carbonated beverages Number of servings: 1 what type of physical activity do you participate in: none seatbelt use: always do you feel safe at home: Yes ROS Constitutional Constitutional: Denies chills, fatigue, fever(s) or malaise Eyes Eyes: Denies blurry vision ENT HEENT: Denies headache(s) or nasal discharge Cardiovascular Cardiovascular: Reports syncope; Denies chest pain or dyspnea on exertion Respiratory/Chest Respiratory/Chest: Denies cough, shortness of breath at rest or shortness of breath with exertion Gastrointestinal Gastrointestinal: Denies constipation, diarrhea, nausea or vomiting Genitourinary Genitourinary: Denies dysuria Neurologic Neurologic: Denies focal weakness, numbness or tremor(s) Psychiatric Psychiatric: Denies anxiety or depression Vital Signs Vital Signs Vital Signs: 01/18/24 15:05 01/18/24 15:05 01/18/24 17:02 Temperature 97.6 F L Temperature Source Oral Pulse Rate 60 73 Respiratory Rate 17 15 Blood Pressure 96/53 L 102/46 L Blood Pressure Mean 67 64 Pulse Ox 100 Oxygen Delivery Method Room Air 01/18/24 18:45 01/18/24 19:00 Temperature 98 F Temperature Source Pulse Rate 73 71 Respiratory Rate 16 18 Blood Pressure 118/97 H 113/65 Blood Pressure Mean 104 81 Pulse Ox 97 97 Oxygen Delivery Method Room Air Weight Weight: 146 lb 4.8 oz Body Mass Index (BMI) 19.3 Physical Exam Narrative General: Alert, Oriented x3, Cooperative, No apparent distress HEENT: Atraumatic, PERRLA, EOMI, Normocephalic Oral: Dry mucosa Neck: Supple, No JVD Lungs: Diminished, Normal air movement, No rhonchi, No wheeze, No rales Cardiovascular: Regular rate, Regular Rhythm, Normal S1, Normal S2, No murmurs, hematoma over pacemaker site Abdomen: Soft, Non Tender, Non-Distended, No Hepato-splenomegaly Extremities: No edema, Capillary Refill Less than 3 Seconds Skin: No rashes, No breakdown Musculoskeletal: No Tenderness to Palpation of Joints or Extremities Neurological: No focal neurological deficits, Motor Exam 5/5 strength throughout, Sensory exam intact to light touch and pain, Parkinson's tremor Psych/Mental Status: Normal Affect, Appropriate Results Lab / Micro Data 01/18/24 15:42 01/18/24 15:42 Labs: Laboratory Results - last 24 hr 01/18/24 15:42: WBC 6.4, RBC 3.15 L, Hgb 10.6 L, Hct 30.3 L, MCV 96.2 H, MCH 33.7 H, MCHC 35.0, RDW Std Deviation 45.4 H, RDW Coeff of Patricia 12.9, Plt Count 177, MPV 9.5, Sodium 138, Potassium 4.2, Chloride 108 H, Carbon Dioxide 20.0 L, Anion Gap 10, BUN 55 H, Creatinine 1.83 H, Estim Creat Clear Calc 30.22, Est GFR (MDRD) Af Amer 46 L, Est GFR (MDRD) Non-Af 38 L, BUN/Creatinine Ratio 30.1 H, Glucose 139 H, Calcium 9.3, Troponin I High Sens 17, B-Natriuretic Peptide 58.4 01/18/24 16:08: Urine Color Yellow, Urine Clarity Clear, Urine pH 5.0, Ur Specific Earp 1.020, Urine Protein Negative, Urine Glucose (UA) Normal, Urine Ketones 5 H, Urine Occult Blood Negative, Urine Nitrite Negative, Urine Bilirubin Negative, Urine Urobilinogen Normal, Ur Leukocyte Esterase Negative, Urine RBC 0 SEEN, Urine WBC 0 SEEN, Ur Squamous Epith Cells 0 SEEN, Urine Bacteria 0 SEEN, Urine Mucus 0 SEEN 01/18/24 17:45: Troponin I High Sens 27 Imaging Radiology Impression Chest X-Ray 01/18/24 15:48 IMPRESSION: No change in the appearance the chest from the reference exam. No acute pulmonary abnormality. Electronically Signed: Mynor Xie MD at 16:17 EDT Reading Location ID and State: [address] [place] [address] Tel , Service support , Assessment & Plan Assessment/Plan (1) Acute kidney injury: (2) Syncope: PLAN: Plan 1. Syncope secondary to dehydration with CHRIS ? Continue with IV fluids but will be gentle given his systolic CHF ? Orthostatic vital signs tomorrow morning ? Will hold his diuretic therapy, his carbidopa can do this as well however he has been maintained on the same dose ? Pacemaker did not identify any abnormal rhythms surrounding the event 2. Chronic systolic CHF/essential HTN/HLD/pacemaker placement ? Can resume his home blood pressure medications except for his Lasix, ramipril, Aldactone ? Will monitor make adjustments as necessary ? Continue with Lipitor and aspirin 3. Parkinson's ? Continue with the Sinemet ? Stable 4. BPH ? Continue with his home medications ? Stable DVT: SCDs 75 minutes was spent on direct patient care, including documentation as well as chart review and collaboration with colleagues Charges/Coding Visit Charges Inpatient E&M: 93648 Init Hosp L3
--- OUTSIDE RECORDS SUMMARY | 2024-01-18 19:58 | XMS RPT_ITS | CCD ---
Author Organization [facility] CliniSyfl Care Team Providers Care Bridge Builder Name Role Phone RAMIRO Santiago, Jena Garcia Unavailable Unavailable Cassandra RUBIO, Karen Garsia Unavailable [phone] RACHEL Jorgensen, Karen Garcia Unavailable Vero RUBIO, Shweta Leavitt Unavailable Unavailable Valarie Duffy Unavailable Unavailable Valarie Duffy Unavailable Unavailable RAMIRO Santiago, Jena Garcia Unavailable Unavailable Aaron Perez MD Unavailable [phone] [facility] Nurse Unavailable Unavailable RACHEL Jorgensen, Karen Garcia Unavailable [place], Luli Nadja Primary Care Provider Unavailabl e [place], [facility] Primary Care Provider Unavailabl e [place], [facility] Primary Care Provider Unavailabl e [place], Luli Nadja Primary Care Provider Unavailabl e Bernal FLAT LOCKER.James GONZALEZ Unavailable [phone] Albaro YANEZ.Rina GONZALEZ Unavailable WILLIE MATTHEWS Attending Unavailable MAHESH, LULI SAEZ Primary Care Unavailable BAY, LULI SAEZ Primary Care Unavailable WILLIE MATTHEWS Attending Unavailable JAMES BERNAL Attending Unavailable BOCA GRANDE, LULI NADJA Primary Care Unavailable [place], [facility] Primary Care Provider Unavailabl e Analilia FLAT LOCKER.James GONZALEZ Unavailable Albaro YANEZ.Rina GONZALEZ Unavailable [phone] Willie Matthews MD Unavailable [phone] Medications Current Medications Medication Drug Class(es) [...] th once daily TOPROL XL 100 MG [id number] One half tablet by mouth daily METOPROLOL SUCCINATE [id number] Karen Jorgensen PA-C Start: 11-02-2010 take 1 tablet by carlota th once daily TOPROL XL 100 MG [id number] One tablet by mouth daily METOPROLOL SUCCINATE [id number] Aaron Perez MD Comment on above: Take 50 mg by mouth once daily. ramipril 10 mg oral capsule (20 sources) Angiotensin Converting Enzyme Inhibitor Start: 08-04-2022 ramipril (ALTACE) 10 mg capsule Start: 11-02-2010 take 1 tablet by carlota th twice daily ALTACE 10 MG CAPS One tablet by mouth twice daily RAMIPRIL [id number] Aaron Perez MD Start: 11-02-2010 take 1 tablet by carlota th once daily ALTACE 10 MG CAPS One tablet by mouth daily RAMIPRIL [id number] Karen Jorgensen PA-C Start: 11-02-2010 take 1 tablet by carlota th twice daily ALTACE 10 MG CAPS One tablet by mouth twice daily RAMIPRIL [id number] Aaron Perez MD Start: 03-05-2005 End: 09-20-2021 take 1 tablet by mouth once daily ALTACE 10 MG CAPS One tablet by mouth daily RAMIPRIL [id number] BRUCE AbbottC Comment on above: Take one(1) [...] TBEC One tablet by mouth daily ASPIRIN [id number] Aaron Perez MD Start: 11-02-2010 take 1 tablet by carlota th once daily ASPIRIN 325 MG TABS One tablet by mouth daily ASPIRIN 99443822616 Kim Graahm Start: 03-05-[address] RENGTH 81 [...] One tablet by mouth at bedtime. CARBIDOPA-LEVODOPA [id number] Aaron Perez MD Start: 05-19-2015 take 1 tablet by carlota th at bedtime SINEMET CR 50-200 MG CR-TABS One tablet by mouth at bedtime. CARBIDOPA-LEVODOPA 45063583717 Aaron Perez MD Start: 11-02-2010 take 1 tablet by carlota th three times daily SINEMET 25-100 MG TABS One tablet by mouth three times daily CARBIDOPA-LEVODOPA [id number] Kim Graham Start: 11-02-2010 take 1 tablet by carlota th three times daily SINEMET 25-100 MG TABS One tablet by mouth three times daily CARBIDOPA-LEVODOPA [id number] Kim Graham Comment on above: Take 2 tablets by mo [facility] four times daily. Take 2 tablets by mo [facility] three times daily. cholecalciferol 2000 unt oral capsule (20 sources) Vitamin D Start: 10-13-19 14 take 1 tablet by mouth once daily VITAMIN D3 2000 UNIT CAPS One tablet by mouth daily CHOLECALCIFEROL 58583593531 Karen Jorgensen PA-C Start: 10-12-2013 VITAMIN D3 200 0 UNIT CAPS 5,000 IU twice daily CHOLECALCIFEROL 37950383368 Aaron Perez MD citalopram 20 mg oral tablet (20 sources) Serotonin Reuptake Inhibitor Start: 03-05-2005 End: 09-20-2021 take 1 tablet by mouth once daily CELEXA 20 MG TABS One tablet by mouth daily CITALOPRAM HYDROBROMIDE 69258565524 Kim Graham Comment on above: Take one(1) tablet d aily. clopidogrel 75 mg oral tablet (20 sources) P2Y12 Platelet Inhibitor Start: 11-02-2010 End: 02-25-2012 take 1 tablet by mouth once daily PLAVIX 75 MG TABS One tablet by mouth daily CLOPIDOGREL BISULFATE 86686272153 Aaron Perez MD ergocalciferol 23974 unt oral capsule (13 sources) Provitamin D2 Compound Start: 10-12-2013 take 1 tablet by mouth once daily VITAMIN D (ERGOCALCIFEROL) 69874 UNIT CAPS One tablet by mouth daily ERGOCALCIFEROL 39603254136 Karen Jorgensen PA-C Start: 10-12-2013 take 1 tablet by carlota once daily VITAMIN D (ERGOCALCIFEROL) 83266 UNIT CAPS One tablet by mouth daily ERGOCALCIFEROL 64027711980 Karen Jorgensen PA-C etodolac 400 mg oral tablet (20 sources) Nonsteroidal Anti-inflammatory Drug Start: 08-23-2011 End: 09-26-2012 take 1 tablet by mouth twice daily ETODOLAC 400 MG TABS One tablet by mouth twice daily ETODOLAC 91638856879 Aaron Perez MD furosemide 40 mg oral [...] with low fat snack NIACIN (ANTIHYPERLIPIDEM IC) [id number] Aaron Perez MD Start: 03-05-2005 End: 09-20-2021 take 1 tablet by mouth at bedtime NIASPAN 1000 MG CR-TABS One tablet by mouth at bedtime. with low fat snack NIACIN (ANTIHYPERLIPIDEMIC) 35474777515 Aaron Perez MD Comment on above: Take one(1) tablet d aily. nitroglycerin 0.4 mg sublingual tablet (20 sources) Nitrate Vasodilator Start: 08-23-2011 NITROSTAT 0.4 MG SUBL 1 tablet under tongue every 5 min up to 3 X NITROGLYCERIN 10384569057 Aaron Perez MD Start: 11-02-2010 NITROGLYCERIN 0.4 MG/HR PT24 1 tablet under tongue every 5 min up to 3 X NITROGLYCERIN 47916352182 Kim Graham OMEGA-3 FATTY ACIDS CPDR (10 sources) Start: 11-02-2010 take 1 tablet by mouth once daily OMEGA 3 CPDR One tablet by mouth daily OMEGA-3 FATTY ACIDS CPDR 41893686504 Kim Graham Start: 11-02-2010 End: 02-25-2012 take 1 tablet by mouth once daily OMEGA 3 CPDR One tablet by mouth daily OMEGA-3 FATTY ACIDS CPDR 89967802098 Aaron Perez MD OMEGA-3 FATTY ACIDS CPDR (16 sources) Start: 11-02-2010 End: 02-25-2012 take 1 tablet by mouth once daily OMEGA 3 CPDR One tablet by mouth daily OMEGA-3 FATTY ACIDS CPDR 78769942792 Aaron Perez MD Start: 11-02-2010 take 1 tablet by carlota th once daily OMEGA 3 CPDR One tablet by mouth daily OMEGA-3 FATTY ACIDS CPDR 50021929099 Kim Graham Start: 11-02-2010 take 1 tablet by carlota th once daily OMEGA 3 CPDR One tablet by mouth daily OMEGA-3 FATTY ACIDS CPDR 68939008444 Kim Graham Start: 11-02-2010 End: 02-25-2012 take 1 tablet by mouth once daily OMEGA 3 CPDR One tablet by mouth daily OMEGA-3 FATTY ACIDS CPDR 91083751318 Aaron Perez MD rasagiline 1 mg oral tablet (20 sources) Monoamine Oxidase Inhibitor Start: 04-10-2013 End: 10-12-2013 AZILECT 1 MG TABS 1/2 tablet x 4 days, then one tablet daily RASAGILINE MESYLATE 38083252624 Karen Jorgensen PA-C rOPINIRole 1 mg oral tablet (20 sources) Nonergot Dopamine Agonist Start: 02-25-2012 End: 04-19-2014 take 1 tablet by mouth three times daily REQUIP 1 MG TABS One tablet by mouth three times daily ROPINIROLE HCL 39224463473 Aaron Perez MD Start: 11-02-2010 take 2 tablets by mo [facility] once daily REQUIP 4 MG TABS 2 tablets by mouth daily ROPINIROLE HCL 13912811176 Kim Marinward sulfamethoxazole 800 mg / trimethoprim 160 mg oral tablet (20 sources) Dihydrofolate Reductase Inhibitor Antibacterial, Sulfonamide Antimicrobial Start: 04-17-2013 End: 10-12-2013 take 1 tablet by mouth twice daily BACTRIM DS 800-160 MG TABS One tablet by mouth twice daily X 3 days SULFAMETHOXAZOLE-TRIMETHOPRIM 66979918294 Karen Jorgensen PA-C Start: 04-17-2013 take 1 tablet by carlota th twice daily BACTRIM DS 800-160 MG TABS One tablet by mouth twice daily SULFAMETHOXAZOLE-TRIMETHOPRIM 37604540338 Clair Ovalle RN Start: 04-17-2013 End: 10-12-2013 take 1 tablet by mouth twice daily BACTRIM DS 800-160 MG TABS One tablet by mouth twice daily X 3 days SULFAMETHOXAZOLE-TRIMETHOPRIM 56889606545 Karen Jorgensen PA-C Start: 04-17-2013 take 1 tablet by carlota th twice daily BACTRIM DS 800-160 MG TABS One tablet by mouth twice daily X 3 days SULFAMETHOXAZOLE-TRIMETHOPRIM 75121385985 Aaron Perez MD vitamin b 12 1 mg oral tablet (20 sources) Vitamin B12 Start: 11-02-2010 End: 10-12-2013 take 1 tablet by mouth once daily VITAMIN B-12 1000 MCG TABS One tablet by mouth daily CYANOCOBALAMIN 34871282724 Kim Graham Problems Active Problems Problem Classification [...] disease (20 sources) Atherosclerotic heart disease of [place] coronary artery without angina pectoris; Translations: [Angina [...] (8 sources) Long-term drug therapy; Translations: [Other longterm (current) drug therapy] Onset: 11-02-2010 11-02-2010 Past [...] 11-02-2010 Episodic Other aftercare (5 sources) Other longterm (current) drug therapy; Translations: [Other longterm (current) drug therapy] Onset: 11-02-2010 Episodic Other [...] Test Name Value Interpretation Reference Range Facility [facility] 09-19-2022 CNOV Office Visit (NRMDN) ADI LUND ([id number]) 1945 M Date Time Provider Department 09/19/22 [...] kg (139 (more content not included)... Normal [facility] Silver 08-27-2022 CNPN Telephone (NREUS2) ASHELYADI Jimenez ([id number]) 1945 Date Time Provider Department 08/27/22 WILLIE MATTHEWS NREUS2 During your visit today, we recorded the following information about you[place] [facility] [place] Yee 08/27/2022 3:28 PM Signed NI [...] for him now. Number to return call [phone] Okay to leave a message ? Last office visit 01/16/22 with James No visit scheduled. Thank you calling [facility] [place]. You will receive a return call within [...] nurse, states she can be reached at [phone] Sangeeta Main RN 09/12/2022 2:13 PM Signed [...] for home nail trimming, recommended calling local pediatric registered nurse to see if one can accommodate with home visit. Transferred to [facility] to assist with scheduling appointment. Willie Matthews [...] Letter Text (more content not included)... Normal [facility] CNCOon 05-01-2022 CNCO Letter Text Normal [facility] CNPNon 01-17-2022 CNPN Telephone (HCSIND) ADI LUND ([id number]) 1945 M Date Time Provider Department 01/17/22 BRANDON WEINBERG During your visit today, we recorded the following information about you: MAXI Soria 01/17/2022 8:22 AM Signed Thank you for the referral of your patient to [facility]. At this time, we are at capacity and are unable to accept your patient. In order to help your patient receive quality home care, we have included reputable agencies that service this area: [facility] [phone] or [facility] [phone]. Please contact this agency and they will work with your patient to arrange timely services. Thank you, Brandon Weinberg, PSS 01/17/2022 8:22 AM James Bernal APRN.PAROLE HEARING OFFICER 01/17/2022 11:41 AM Signed Addended by: JAMES BERNAL on: 01/17/2022 11:41 AM Modules accepted: Orders James Bernal APRN.PAROLE HEARING OFFICER 01/17/2022 11:41 AM Signed Thanks so much! Order is in SEBASTIÁN Tolentino 01/18/2022 10:00 AM Signed Please fax referral to [facility] at [phone]. Bridger Youngblood RN 01/18/2022 10:59 AM Signed Order, demographics and insurance faxed per request. Bridger Youngblood RN DidiSEBASTIÁN David 01/22/2022 11:22 AM Signed SW spoke with Shweta at [facility], patient is out of the service area. Please fax home care referral to [facility] at [phone]. Ami Angel RN 01/22/2022 11:49 AM Signed Information faxed to [facility] as requested. Autumn Pike [facility] 01/23/2022 2:43 PM Signed [facility] called to report pt declined service for PT order received. Allergies As of Date: 01/17/2022 (No Known Allergies) Date Reviewed: 01/16/2022 Reviewed by: Kiley Connor MA - Fully Assessed Reason for Visit: Home Care [4073] Primary Visit Diagnosis:Parkinson' s disease (HCC) [G20] Order(s):CONSULT - [facility] [[id number]] Order #: [id number]: [address] [facility] [[id number]] Order #: [id number]: 1 Prescriptions as of 01/23/2022 - sertraline [...] Encounter Status:Closed by JAMES BERNAL on 01/17/22 [facility] Office [facility] (NRMDN) ASHELYADI CROWLEY ([id number]) 1945 M Date Time Provider Department 01/16/22 3:00 PM JAMES BERNAL NRKREA During your visit today, we recorded the following information about you: Weight Height 67.4 kg 1.753 m James Bernal APRN.PAROLE HEARING OFFICER 01/17/2022 2:48 PM Signed [facility] [...] his spo (more content not included)... Normal [facility] CNOVon 09-20-2021 CNOV Office Visit (NRMDN) ADI LUND ([id number]) 1945 M Date Time Provider Department 09/20/21 [...] now. Diagnosed around that time. Neurologist left [place]. Would like walking to be better. Doesn't [...] 1 tabl (more content not included)... Normal [facility] Office Visit: [facility] 02-13-20 17 Documentation of current medications (procedure) Done Invalid Interpretation Code [employer] Work Phone: [phone] Protein mass conc Done Invalid Interpretation Code [facility] Work Phone: [phone] Lab Report: CBC W/Diff, Auto matedon 01-02-2017 RBC morphology finding Nom (Bld) NORM C+C Invalid Interpretation Code NORM C AND C [employer] Work Phone: [phone] Lab Report: T4 Total, Thyrox inon 01-02-2017 T4 mass conc 8.3 ug/dL Invalid Interpretation Code 4.5-12.1 [facility] Work Phone: [phone] Lab Report: Thyroid Stim Hor samara (TSH)on 01-02-2017 Thyrotropin Qn 1.18 u[iU]/mL Invalid Interpretation Code 0.358-3.74 [employer] Work Phone: [phone] Office Visit: [facility] 01-03-20 17 Documentation of current medications (procedure) Done Invalid Interpretation Code [employer] Work Phone: [phone] Fall risk assessment No Invalid Interpretation Code [facility] Work Phone: [phone] Protein mass conc Done Invalid Interpretation Code [employer] Work Phone: [phone] Replaced Document: (P) CBC W /Diff, Automatedon 01-02-2017 Absolute Neut 3.9 X10 3/UL Invalid Interpretation Code 2.0-7.7 [employer] Work Phone: [phone] Basophils/100 leukocytes 0.5 % Invalid Interpretation Code 0-1 [facility] Work Phone: [phone] Basophils/100 WBC (Bld) 0.5 % 0-1 [employer] Work Phone: [phone] Eosinophils/100 leukocytes 2.3 % Invalid Interpretation Code 0-5 [facility] Work Phone: [phone] Eosinophils/100 WBC (Bld) 2.3 % 0-5 [facility] Work Phone: [phone] Erythrocyte distribution width Auto Ratio (RBC) 46.3 fL High 35.1-43.9 [facility] Work Phone: [phone] Erythrocyte distribution width Ratio (RBC) 46.3 fL High 35.1-43.9 [facility] Work Phone: [phone] Erythrocyte distribution width Ratio (RBC) 13.2 % 11.6-14.6 [facility] Work Phone: [phone] Erythrocytes (RBC) 4.25 10*6/uL Low 4.6-6.[address] [facility] Work Phone: [phone] Hematocrit (HCT) 40.5 % Invalid Interpretation Code 40-54 [facility] Work Phone: [phone] Hematocrit Volume Fraction (Bld) 40.5 % 40-54 [facility] Work Phone: [phone] Hemoglobin (HGB) 13.6 g/dL Invalid Interpretation Code 13.0-16.5 [facility] Work Phone: [phone] Immature granulocytes #/vol (Bld) 0.200 % Invalid Interpretation Code 0.0-0.9 [facility] Work Phone: [phone] immature granulocytes, percentage of total cells, blood 0.200 % Invalid Interpretation Code 0.0-0.9 [facility] Work Phone: [phone] Immature granulocytes/100 WBC (Bld) 0.200 % Invalid Interpretation Code 0.0-0.9 [facility] Work Phone: [phone] Lymphocytes 1.40 X10 3/UL Invalid Interpretation Code 0.83-4.51 [facility] Work Phone: [phone] Lymphocytes #/vol (Bld) 1.40 X10 3/UL 0.83-4.51 [facility] Work Phone: [phone] Lymphocytes/100 leukocytes 21.9 % Invalid Interpretation Code 19-41 [facility] Work Phone: [phone] Lymphocytes/100 WBC (Bld) 21.9 % 19-41 [facility] Work Phone: [phone] MCH 32.0 pg Invalid Interpretation Code 27.0-32.0 [facility] Work [phone] MCH Entitic mass (RBC) 32.0 pg 27.0-32.0 [facility] Work [phone] MCHC 33.6 G/GL Invalid Interpretation Code 32-36 [facility] Work [phone] MCHC mass conc (RBC) 33.6 G/GL 32-[address] [facility] Work Phone: [phone] MCV 95.3 fL High 80-94 [facility] Work Phone: [phone] MCV Entitic volume (RBC) 95.3 fL High 80-94 [facility] Work Phone: [phone] Monocytes/100 leukocytes 14.1 % High 0-10 [facility] Work Phone: [phone] Monocytes/100 WBC (Bld) 14.1 % High 0-10 [facility] Work Phone: [phone] neutrophil count, blood 3.9 X10 3/UL Invalid Interpretation Code 2.0-7.7 [facility] Work Phone: [phone] Neutrophils #/vol (Bld) 3.9 X10 3/UL 2.0-7.7 [facility] Work Phone: [phone] Neutrophils Auto #/vol (Bld) 3.9 X10 3/UL Invalid Interpretation Code 2.0-7.7 [facility] Work Phone: [phone] Neutrophils/100 leukocytes 61.0 % Invalid Interpretation Code 47-70 [facility] Work Phone: [phone] Neutrophils/100 WBC (Bld) 61.0 % 47-70 [facility] Work Phone: [phone] Platelet mean volume Entitic volume (Bld) 9.3 fL 6.2-12.0 [facility] Work Phone: [phone] Platelets 226 10*3/mm3 Invalid Interpretation Code 150-450 [facility] Work Phone: [phone] Platelets #/vol (Bld) 226 10*3/mm3 150-450 [facility] Work Phone: [phone] PMV by Bowen 9.3 fL Invalid Interpretation Code 6.2-12.0 [facility] Work Phone: [phone] RBC #/vol (Bld) 4.25 10*6/uL Low 4.6-6.2 [facility] Work Phone: [phone] RDW SD 46.3 fL High 35.1-43.9 [facility] Work Phone: [phone] RDW-CA 13.2 % Invalid Interpretation Code 11.6-14.6 [facility] Work Phone: [phone] red blood cell distribution width, size density 46.3 fL High 35.1-43.9 [facility] Work Phone: [phone] WBC #/vol (Bld) 6.4 10*3/uL 4.4-11.0 [facility] Work Phone: [phone] WBC (Leukocytes) 6.4 10*3/uL Invalid Interpretation Code 4.4-11.0 [facility] Work Phone: [phone] Lab Report: Basic Metabolic Profile (BMP)on 11-15-2016 Anion gap 7 mmol/L Invalid Interpretation Code 5-15 [facility] Work Phone: [phone] Anion gap 4 molar conc 7 Invalid Interpretation Code 5-15 [facility] Work Phone: [phone] Anion gap molar conc 7 mmol/L 5-[address] [facility] Work Phone: [phone] Calcium mass conc 9.0 mg/dL Invalid Interpretation Code 8.5-10.1 [facility] Work Phone: [phone] Chloride molar conc 101 mmol/L Invalid Interpretation Code 98-107 [facility] Work Phone: [phone] CO2 29.0 mmol/L Invalid Interpretation Code 21.0-32.0 [facility] Work Phone: [phone] CO2 ppres (BldV) 29.0 mmol/L Invalid Interpretation Code 21.0-32.0 [employer] Work Phone: [phone] Creatinine mass conc 1.13 mg/dL Invalid Interpretation Code 0.70-1.30 [employer] Work Phone: [phone] eGFR (non-black) 82 mL/min/{1.73_m2} Invalid Interpretation Code >60 [employer] Work Phone: [phone] EST GFR - AA 82 mL/min Invalid Interpretation Code >60 [employer] Work Phone: [phone] GFR/1.73 sq M predicted among non-blacks MDRD vol rate/area (S/P/Bld) 68 mL/min/{1.73_m2} Invalid Interpretation Code >60 [employer] Work Phone: [phone] Glucose 106 mg/dL Invalid Interpretation Code 70-110 [employer] Work Phone: [phone] Glucose mass conc 106 mg/dL Invalid Interpretation Code 70-110 [employer] Work Phone: [phone] Potassium molar conc 4.1 mmol/L Invalid Interpretation Code 3.5-5.1 [employer] Work Phone: [phone] Sodium molar conc 137 mmol/L Invalid Interpretation Code 136-145 [employer] Work Phone: [phone] Urea nitrogen mass conc 31 mg/dL High 7-18 [employer] Work Phone: [phone] Urea nitrogen/Creatinine mass ratio 27.4 RATIO High 10-20 [employer] Work Phone: [phone] Office Visiton 07-04-2016 Documentation of current medications (procedure) Done Invalid Interpretation Code [employer] Work Phone: [phone] Protein mass conc Done [employer] Work Phone: [phone] Clinical Lists Update: 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 06-27-2016 Left ventricular Ejection fraction 50 % Invalid Interpretation Code [employer] Work Phone: [phone] Lab Report: CBC-Complete Blo od Cnt No Diffon 05-04-2016 Erythrocyte distribution width Ratio (RBC) 12.8 % 11.6-14.6 [employer] Work Phone: [phone] Erythrocyte distribution width Ratio (RBC) 42.1 fL 35.1-43.9 [facility] Work Phone: [phone] Erythrocytes (RBC) 4.62 10*6/uL Invalid Interpretation Code 4.6-6.2 [facility] Work Phone: [phone] Hematocrit (HCT) 42.7 % Invalid Interpretation Code 40-54 [facility] Work Phone: [phone] Hematocrit Volume Fraction (Bld) 42.7 % 40-54 [facility] Work Phone: [phone] Hemoglobin mass conc (Bld) 14.6 g/dL Invalid Interpretation Code 13.0-16.5 [facility] Work Phone: [phone] MCH 31.6 pg Invalid Interpretation Code 27.0-32.0 [facility] Work Phone: [phone] MCH Entitic mass (RBC) 31.6 pg 27.0-32.0 [facility] Work Phone: [phone] MCHC 34.2 G/GL Invalid Interpretation Code 32-36 [facility] Work Phone: [phone] MCHC mass conc (RBC) 34.2 G/GL 32-[address] [facility] Work Phone: [phone] MCV 92.4 fL Invalid Interpretation Code 80-94 [facility] Work Phone: [phone] MCV Entitic volume (RBC) 92.4 fL 80-94 [facility] Work Phone: [phone] Platelet mean volume Entitic volume (Bld) 9.5 fL 6.2-12.0 [facility] Work Phone: [phone] Platelets 226 10*3/mm3 Invalid Interpretation Code 150-450 [facility] Work Phone: [phone] Platelets #/vol (Bld) 226 10*3/mm3 150-450 [facility] Work Phone: [phone] PMV by Bowen 9.5 fL Invalid Interpretation Code 6.2-12.0 [facility] Work Phone: [phone] RBC #/vol (Bld) 4.62 10*6/uL 4.6-6.2 [facility] Work Phone: [phone] RDW-CA 12.8 % Invalid Interpretation Code 11.6-14.6 [facility] Work Phone: [phone] red blood cell distribution width, size density 42.1 fL Invalid Interpretation Code 35.1-43.9 [facility] Work Phone: [phone] WBC #/vol (Bld) 5.8 10*3/uL 4.4-11.0 [facility] Work Phone: [phone] WBC (Leukocytes) 5.8 10*3/uL Invalid Interpretation Code 4.4-11.0 [facility] Work Phone: [phone] Lab Report: [facility] 05-04-2016 Albumin mass conc 3.8 g/dL Invalid Interpretation Code 3.4-5.0 [facility] Work Phone: [phone] Albumin/Globulin mass ratio 1.1 {ratio} Invalid Interpretation Code 0.9-2.4 [facility] Work Phone: [phone] Alkaline phosphatase (ALP) 128 U/L High 45-117 [facility] Work Phone: [phone] ALP enzyme act/vol (Bld) 128 U/L High 45-117 [facility] Work Phone: [phone] ALT enzyme act/vol 20 U/L Invalid Interpretation Code 12-78 [facility] Work Phone: [phone] Anion gap molar conc 7 mmol/L 5-[address] [facility] Work Phone: [phone] AST enzyme act/vol 23 U/L Invalid Interpretation Code 15-37 [facility] Work Phone: [phone] Bilirubin mass conc 1.10 mg/dL High 0.20-1.00 [facility] Work Phone: [phone] Calcium mass conc 8.6 mg/dL 8.5-10.1 [facility] Work Phone: [phone] Chloride molar conc 106 mmol/L 98-107 [facility] Work Phone: [phone] CO2 ppres (BldV) 27.0 mmol/L 21.0-32.0 [facility] Work Phone: [phone] Creatinine mass conc 0.89 mg/dL 0.70-1.[address] [facility] [employer] Work Phone: [phone] EST GFR - AA 108 mL/min >60 [facility] Work Phone: [phone] GFR/1.73 sq M predicted among non-blacks MDRD vol rate/area (S/P/Bld) 89 mL/min/{1.73_m2} >60 [facility] [employer] Work Phone: [phone] Globulin 3.5 g/dL Invalid Interpretation Code 2.3-3.5 [facility] Work Phone: [phone] Globulin mass conc (S) 3.5 g/dL 2.3-3.5 [facility] Work Phone: [phone] Glucose mass conc 96 mg/dL 70-110 [facility] Work Phone: [phone] Potassium molar conc 3.8 mmol/L 3.5-5.[address] [facility] Work Phone: [phone] Protein mass conc 7.3 g/dL Invalid Interpretation Code 6.4-8.2 [facility] Work Phone: [phone] Sodium molar conc 140 mmol/L 136-145 [facility] Work Phone: [phone] Urea nitrogen mass conc 13 mg/dL 7-18 [facility] Work Phone: [phone] Urea nitrogen/Creatinine mass ratio 14.6 RATIO 10-20 [facility] Work Phone: [phone] Lab Report: Lipid Profileon 05-04-2016 Cholesterol in HDL mass conc 36 mg/dL Low [facility] Work Phone: [phone] Cholesterol in LDL mass conc 57 mg/dL Invalid Interpretation Code 0-130 [facility] Work Phone: [phone] Cholesterol mass conc 114 mg/dL Invalid Interpretation Code 200 [facility] Work Phone: [phone] Lipoprotein.pre-beta mass conc 21 mg/dL Invalid Interpretation Code 5-40 [facility] Work Phone: [phone] Triglyceride mass conc 107 mg/dL Invalid Interpretation Code [facility] Work Phone: [phone] Lab Report: T4 Free Directon 05-04-2016 T4 free mass conc 1.19 ng/dL Invalid Interpretation Code 0.76-1.46 [facility] Work Phone: [phone] Lab Report: Thyroid Stim Hor samara (TSH)on 05-04-2016 Thyrotropin Qn 0.97 u[iU]/mL 0.358-3.74 [facility] Work Phone: [phone] Replaced Document: Kendrick VENCES Observationson 11-30-2015 EKG QRS axis -113 deg Invalid Interpretation Code [facility] Work Phone: [phone] electrocardiogram interpretation Sinus Bradycardia -WPW pattern. ABNORMAL Invalid Interpretation Code [employer] Phone: [phone] GE use only - for [employer] import when terms are not otherwise specified 464 ms Invalid Interpretation Code [facility] Phone: [phone] Interpretation Sinus Bradycardia -WPW pattern. ABNORMAL Invalid Interpretation Code [employer] Phone: [phone] P [place] 107 deg Invalid Interpretation Code [facility] Phone: [phone] P wave axis, electrocardiogram 107 deg Invalid Interpretation Code [facility] Phone: [phone] AK Interval 184 ms Invalid Interpretation Code [facility] Work Phone: [phone] AK interval, electrocardiogram 184 ms Invalid Interpretation Code [facility] Work Phone: [phone] Pulse (Heart Rate) 55 /min Invalid Interpretation Code [facility] Work Phone: [phone] QRS axis, electrocardiogram -113 deg Invalid Interpretation Code [facility] Work Phone: [phone] QRS Duration 186 ms Invalid Interpretation Code [facility] Phone: [phone] QRS duration, electrocardiogram 186 ms Invalid Interpretation Code [facility] Phone: [phone] QT Interval new path ms Invalid Interpretation Code [facility] Phone: [phone] QT interval, electrocardiogram new path ms Invalid Interpretation Code [facility] Phone: [phone] QTc [place] 464 ms Invalid Interpretation Code [facility] Work Phone: [phone] T [place] 90 deg Invalid Interpretation Code [facility] Work Phone: [phone] T wave axis, electrocardiogram 90 deg Invalid Interpretation Code [facility] Work Phone: [phone] Office Visiton 05-19-2015 Tobacco smoking status NHIS Never smoker Invalid Interpretation Code [facility] Work Phone: [phone] [facility] Never smoker Invalid Interpretation Code [facility] Work Phone: [phone] Lab Report: Liver Profileon 04-21-2015 Bilirubin.direct mass conc 0.19 mg/dL Invalid Interpretation Code 0.00-0.30 [facility] Work Phone: [phone] Lab Report: PSA,Total - Emma al Screenon 04-21-2015 prostate specific antigen (PSA) screening 0.86 ng/mL Invalid Interpretation Code 0.00-4.00 [facility] Work Phone: [phone] Protein mass conc 0.86 ng/mL 0.00-4.00 [facility] Work Phone: [phone] PSA,TOT SCREEN 0.86 ng/mL Invalid Interpretation Code 0.00-4.00 [facility] Work Phone: [phone] Lab Report: T4 Total, Thyrox inon 10-23-2014 T4 mass conc 10.2 ug/dL 4.5-12.1 [facility] Work Phone: [phone] Office Visiton 04-19-2014 cardiac risk group C Invalid Interpretation Code [facility] Work Phone: [phone] General cardiovascular disease 10Y risk [#] [employer]ost[employer] N/A Invalid Interpretation Code [facility] Work Phone: [phone] Clinical Lists Update: 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 04-14-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 Digoxin 1.00 ng/mL Invalid Interpretation Code [facility] Work Phone: [phone] Digoxin>12 hours p dose mass conc 1.00 ng/mL Invalid Interpretation Code [facility] Work Phone: [phone] Clinical Lists Update: 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 04-13-2014 Globulin 3.1 g/dL Invalid Interpretation Code [facility] Work Phone: [phone] Globulin mass conc (S) 3.1 g/dL [facility] Work Phone: [phone] Clinical Lists Update: Pacer Preloadon 04-30-2013 Left ventricular Ejection fraction 50 % Invalid Interpretation Code [facility] Work Phone: [phone] Lab Report: UAon 04-21-2013 Specific gravity Refractometry Relative Density (U) 1.015 Normal 1.002-1.030 [facility] Work Phone: [phone] Lab Report: PTon 04-16-2013 INR Coag RelTime (PPP) 1.1 {INR} Normal [facility] Work Phone: [phone] INR in blood by coagulation 1.1 {INR} Normal [facility] Work Phone: [phone] prothrombin time, actual/normal, ratio 13.3 SECONDS Normal 11.9-14.4 [facility] Work Phone: [phone] PTP 13.3 SECONDS Normal 11.9-14.4 [facility] Work Phone: [phone] Replaced Document: Kendrick E CG Observationson 04-10-2013 Pulse (Heart Rate) 453 ms Invalid Interpretation Code [facility] Work Phone: [phone] Clinical Lists Update: 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 04-08-2012 Glucose 90 mg/dL Invalid Interpretation Code [facility] Work Phone: [phone] Glucose fasting mass conc 90 mg/dL [facility] Work Phone: [phone] Glucose fasting mass conc (BldV) 90 mg/dL Invalid Interpretation Code [facility] Work Phone: [phone] Glucose mass conc 90 mg/dL Invalid Interpretation Code [facility] Work Phone: [phone] Vital Signs Date Time Vital Sign Value Performing Clinician Reinai dago 01-16-2022 14:52-0400 Body height 175.3 cm James Bernal APRN.PAROLE HEARING OFFICER Work Phone: [facility] 01-16-2022 14:52-0400 Body weight 67.41 kg James Bernal APRN.CNP Work Phone: [facility] 01-16-2022 14:52-0400 SaO2% (BldA) [Mass fraction] 97 % James Bernal APRN.CNP Work Phone: [facility] 09-20-2021 10:03-0400 Body height 175.3 cm Willie Matthews MD Work Phone: [facility] 09-20-2021 10:03-0400 Body weight 71.22 kg Willie Matthews MD Work Phone: [facility] 09-20-2021 10:03-0400 Diastolic blood pressure 70 mm[Hg] Willie Matthews MD Work Phone: [facility] 09-20-2021 10:03-0400 Heart rate 55 /min Willie Matthews MD Work Phone: [facility] 09-20-2021 10:03-0400 SaO2% (BldA) [Mass fraction] 98 % Willie Matthews MD Work Phone: [facility] 09-20-2021 10:03-0400 Systolic blood pressure 141 mm[Hg] Willie Matthews MD Work Phone: [facility] 02-12-2017 11:51-0400 BMI (Body Mass Index) 22.89 kg/m2 [facility] Work Phone: 02-12-2017 11:51-0400 BP Diastolic 60 mm[Hg] Valarieambar Duffy [facility] Work Phone: 02-12-2017 11:51-0400 BP Systolic 98 mm[Hg] Avlarieambar Duffy [facility] Work Phone: 02-12-2017 11:51-0400 Weight 70.31 kg Valarieambar Duffy [facility] Work Phone: 01-02-2017 13:22-0400 BMI (Body Mass Index) 22.93 kg/m2 [facility] Work Phone: 01-02-2017 13:22-0400 BP Diastolic 58 mm[Hg] [facility] Work Phone: 01-02-2017 13:22-0400 BP Systolic 98 mm[Hg] [facility] Work Phone: 01-02-2017 13:22-0400 Height 175.26 cm [facility] Work Phone: 01-02-2017 13:22-0400 Pulse (Heart Rate) 56 /min [facility] Work Phone: 01-02-2017 13:22-0400 Respiratory Rate 20 /min [facility] Work Phone: 01-02-2017 13:22-0400 Weight [...] (Heart Rate) 60 /min Jena Santiago RN [facility] Work Phone: 07-04-2016 14:17-0500 Respiratory [...] 10:46-0400 Height 175.26 cm Jena Santiago RN [facility] Work Phone: Encounters Encounter Date Encounter Type Care Provider Facility Start: 11-15-2023 Refill Willie kaplan MD Work Phone: Neurology Comment on above: Refill Request Start: 09-02-2023 Refill Willie kaplan MD Work Phone: Neurology Comment on above: Refill Request Start: 09-19-2022 End: 09-19-2022 ambulatory [facility] Facility:[facility] Start: 08-27-2022 Telephone encounter Willie sagastume MD Work Phone: Neurological [facility]ond[facility] Comment on above: Symptom Management Start: 01-22-2022 Refill James zavala FLAT LOCKER.PAROLE HEARING OFFICER Work Phone: Neurological [facility]omin[facility] Comment on above: Refill Request Start: 01-16-2022 End: 01-16-2022 ambulatory JAMES BERNAL Facility:[facility] Start: 01-16-2022 End: 01-16-2022 Patient encounter procedure James Bernal FLAT LOCKER.PAROLE HEARING OFFICER Work Phone: Neurology Comment on above: Parkinson disease (H CC) (Primary Dx) Start: 09-20-2021 End: 09-20-2021 ambulatory WILLIE MATTHEWS Facility:[facility] Start: 09-20-2021 End: 09-20-2021 Patient encounter procedure Willie Matthews MD Work Phone: Neurology Comment on above: Parkinson disease (H CC) (Primary Dx); RBD (REM behavioral disorder); Gait instability Procedures Date Procedure Procedure Detail Performing Clinician Start: 02-12-2017 End: 02-12-2017 Follow Up Appt Other Karen Jorgensen PA-C Work Phone: Start: 01-23-2017 End: 02-01-2017 Follow Up Appt 3 months aAron Perez MD Start: 01-23-2017 End: 02-01-2017 [facility]ace [...] MD Start: 12-12-2015 End: 12-25-2016 Pacer Clinic Aaorn Perez MD Start: 12-12-2015 End: 12-13-2015 Prgrmg [...] PA-C Work Phone: Start: 11-30-2015 End: 11-30-2015 [facility] Karen Jorgensen PA-C Work Phone: Start: [...] Aaron Perez MD Start: 05-19-2015 End: 05-19-2015 [facility] Aaron Perez MD Start: 05-19-2015 End: 05-19-2015 [...] End: 10-05-2014 Follow Up Appt 3 months Rvai Conteh MD Work Phone: Start: 08-16-2014 End: [...] Start: 05-17-2014 End: 10-05-2014 Pacer Clinic Aaron Preez MD Start: 05-17-2014 End: 05-17-2014 Prgrmg eval [...] PA-C Work Phone: Start: 11-11-2013 End: [facility]-05-[facility] Work Phone: Start: 11-11-2013 End: 11-11-2013 Prgrmg eval implantable in person multi lead dfb Karen Jorgensen PA-C Work Phone: Start: 11-11-2013 End: 10-05-2014 Follow Up Appt 3 months Karen Jorgensen PA-C Work Phone: Start: 11-11-2013 End: 11-11-2013 Icd device progr eval, mult Karen Jorgensen PA-C Work Phone: Start: 11-11-2013 End: 10-05-2014 Pacer [facility] Karen Jorgensen PA-C Work Phone: Start: 10-12-2013 End: 10-12-2013 *Hepatic Function Panel Karen Jorgensen PA-C Work Phone: Start: 10-12-2013 End: 10-12-2013 Follow Up Appt 6 months Karen Jorgensen PA-C Work Phone: Start: 10-12-2013 End: 10-12-2013 Lipid 1996 panel - Serum or Plasma Karen Jorgensen PA-C Work Phone: Start: 10-12-2013 End: 10-12-2013 PFM aKren Jorgensen PA-C Work Phone: Start: 10-12-2013 End: [...] eval remote 30 d cv mntr sys Aaorn Perez MD Start: 12-31-2012 End: 10-01-2013 Pacer [...] Activity Detail Author Start: 01-05-2024 Influenza vaccination [facility] Start: 05-06-2023 Advance Directive Discussion Advance Directive Discussion [facility] Start: 05-06-2023 Behavioral Health Screening Behavioral Health Screening [facility] Start: 01-04-2023 Covid-19 Vaccine ( season) Covid-19 Vaccine ( season) [facility] Start: 01-04-2023 Influenza vaccination INFLUENZA (Season Ended) [facility] Start: 05-06-2022 ADVANCE DIRECTIVE DISCUSSION ADVANCE DIRECTIVE DISCUSSION [facility] Start: 05-06-2022 DEPRESSION ASSESSMENT DEPRESSION ASSESSMENT [facility] Start: 01-04-2022 Influenza vaccination [facility] Start: 07-07-2021 COVID-19 VACCINE (4 - Booster for Pfizer series) COVID-19 VACCINE (4 - Booster for Pfizer series) [facility] Start: 05-06-2021 ADVANCE DIRECTIVE DISCUSSION ADVANCE DIRECTIVE DISCUSSION [facility] Start: 05-04-2021 COVID-19 VACCINE (4 - Booster for Pfizer series) COVID-19 VACCINE (4 - Booster for Pfizer series) [facility] Start: 07-10-2017 End: 07-10-2017 Appointment Appointment [facility] Work Phone: Start: 07-03-2017 End: 07-03-2017 Appointment Appointment [facility] Work Phone: Start: 05-08-2017 End: 05-08-2017 Appointment Appointment [facility] Work Phone: Start: 02-12-2017 End: 02-12-2017 Appointment Appointment [facility] Work Phone: Start: 02-12-2017 End: 02-12-2017 Follow Up Appt Other Follow Up Appt Other [facility] Work Phone: Start: 01-23-2017 End: 01-23-2017 Appointment Appointment [facility] Work Phone: Start: 01-23-2017 End: 02-01-2017 Follow Up Appt 3 months Follow Up Appt 3 months [facility] Work Phone: Start: 01-23-2017 End: 02-01-2017 Pacer Clinic Pacer Clinic [facility] Work Phone: Start: 01-23-2017 End: [...] 6 weeks Follow Up Appt 6 weeks [facility] Work Phone: Start: 01-02-2017 End: 01-02-2017 MMM MMM [facility] Work Phone: Start: 01-02-2017 End: 01-02-2017 Nuclear stress test -Lexiscan Nuclear stress test -Lexiscan [facility] Work Phone: Start: 01-02-2017 End: 01-02-2017 Thyroid stimulating hormone (TSH) *TSH [facility] Work Phone: Start: 01-02-2017 End: 01-02-2017 Thyroxine (T4) *T4 (Total) [facility] Work Phone: Start: 01-02-2017 End: 01-02-2017 Appointment Appointment [facility] Work Phone: Start: 01-02-2017 End: 01-02-2017 *CBC with Differential *CBC with Differential [facility] Work Phone: Start: 01-02-2017 End: 01-02-2017 Follow Up Appt 6 weeks Follow Up Appt 6 weeks [facility] Work Phone: Start: 01-02-2017 End: 01-02-2017 MMM MMM [facility] Work Phone: Start: 01-02-2017 End: 01-02-2017 Nuclear stress test -Lexiscan Nuclear stress test -Lexiscan [facility] Work Phone: Start: 01-02-2017 End: 01-02-2017 Thyroid stimulating hormone (TSH) *TSH [facility] Work Phone: Start: 01-02-2017 End: 01-02-2017 Thyroxine (T4) *T4 (Total) [facility] Work Phone: Start: 11-15-2016 End: 11-16-2016 *BMP *BMP [facility] Work Phone: Start: 11-15-2016 End: 11-16-2016 *BMP *BMP [facility] Work Phone: Start: 10-17-2016 End: 10-17-2016 Appointment Appointment [facility] Work Phone: Start: 10-17-2016 End: 12-25-2016 Follow Up Appt 3 months Follow Up Appt 3 months [facility] Work Phone: Start: 10-17-2016 End: 12-25-2016 Pacer Clinic Pacer Clinic [facility] Work Phone: Start: 10-17-2016 End: 12-25-2016 Follow Up Appt 3 months Follow Up Appt 3 months [facility] Work Phone: Start: 10-17-2016 End: 12-25-2016 Pacer Clinic Pacer Clinic [facility] Work Phone: Start: 07-04-2016 End: 07-04-2016 Device Interrogation Device Interrogation [facility] Work Phone: Start: 07-04-2016 End: 12-25-2016 Follow Up Appt 3 months Follow Up Appt 3 months [facility] Work Phone: Start: 07-04-2016 End: 07-04-2016 Follow Up Appt 6 months Follow Up Appt 6 months [facility] Work Phone: Start: 07-04-2016 End: 07-04-2016 MMM MMM [facility] Work Phone: Start: 07-04-2016 End: 12-25-2016 Pacer Clinic Pacer Clinic [facility] Work Phone: Start: 07-04-2016 End: 07-04-2016 Device Interrogation Device Interrogation [facility] Work Phone: Start: 07-04-2016 End: 12-25-2016 Follow Up Appt 3 months Follow Up Appt 3 months [facility] Work Phone: Start: 07-04-2016 End: 07-04-2016 Follow Up Appt 6 months Follow Up Appt 6 months [facility] Work Phone: Start: 07-04-2016 End: 07-04-2016 MMM MMM [facility] Work Phone: Start: 07-04-2016 End: [...] 3 months Follow Up Appt 3 months [facility] Work Phone: Start: 03-19-2016 End: 07-04-2016 Pacer Clinic Pacer Clinic [facility] Work Phone: Start: 12-12-2015 End: 12-25-2016 Follow Up Appt 3 months Follow Up Appt 3 months [facility] Work Phone: Start: 12-12-2015 End: 12-25-2016 Pacer Clinic Pacer Clinic [facility] Work Phone: Start: 12-12-2015 End: 12-25-2016 Follow Up Appt 3 months Follow Up Appt 3 months [facility] Work Phone: Start: 12-12-2015 End: 12-25-2016 Pacer Clinic Pacer Clinic [facility] Work Phone: Start: 11-30-2015 End: 11-30-2015 Ecg routine ecg w/least 12 lds w/i&r EKG (In office) [facility] Work Phone: Start: 11-30-2015 End: 11-30-2015 Follow Up Appt 6 months Follow Up Appt 6 months [facility] Work Phone: Start: 11-30-2015 End: 11-30-2015 PFM PFM [facility] Work Phone: Start: 11-30-2015 End: 11-30-2015 Electrocardiogram, complete EKG (In office) [facility] Work Phone: Start: 11-30-2015 End: 11-30-2015 Follow Up Appt 6 months Follow Up Appt 6 months [facility] Work Phone: Start: 11-30-2015 End: 11-30-2015 PFM PFM [facility] Work Phone: Start: 10-21-2015 End: [...] 3 months Follow Up Appt 3 months [facility] Work Phone: Start: 09-12-2015 End: 11-23-2015 Pacer Clinic Pacer Clinic [facility] Work Phone: Start: 09-12-2015 End: 11-23-2015 Follow Up Appt 3 months Follow Up Appt 3 months [facility] Work Phone: Start: 09-12-2015 End: 11-23-2015 Pacer Clinic Pacer Clinic [facility] Work Phone: Start: 06-13-2015 End: 11-23-2015 Follow Up Appt 3 months Follow Up Appt 3 months [facility] Work Phone: Start: 06-13-2015 End: 11-23-2015 Pacer Clinic Pacer Clinic [facility] Work Phone: Start: 06-13-2015 End: 11-23-2015 Follow Up Appt 3 months Follow Up Appt 3 months [facility] Work Phone: Start: 06-13-2015 End: 11-23-2015 Pacer Clinic Pacer Clinic [facility] Work Phone: Start: 05-19-2015 End: 05-19-2015 Follow Up Appt 6 months Follow Up Appt 6 months [facility] Work Phone: Start: 05-19-2015 End: 05-19-2015 MMM MMM [facility] Work Phone: Start: 05-19-2015 End: 05-19-2015 Follow Up Appt 6 months Follow Up Appt 6 months [facility] Work Phone: Start: 05-19-2015 End: 05-19-2015 MMM MMM [facility] Work Phone: Start: 04-18-2015 End: 04-21-2015 *Hepatic Function Panel *Hepatic Function Panel [facility] Work Phone: Start: 04-18-2015 End: 04-21-2015 Lipid panel [AGGREGATE] *Lipid Profile CC PCP [facility] Work Phone: Start: 04-18-2015 End: 04-21-2015 *Hepatic Function Panel *Hepatic Function Panel [facility] Work Phone: Start: 04-18-2015 End: 04-21-2015 Lipid panel [AGGREGATE] *Lipid Profile CC PCP [facility] Work Phone: Start: 03-07-2015 End: 11-23-2015 Follow Up Appt 3 months Follow Up Appt 3 months [facility] Work Phone: Start: 03-07-2015 End: 11-23-2015 Pacer Clinic Pacer Clinic [facility] Work Phone: Start: 03-07-2015 End: 11-23-2015 Follow Up Appt 3 months Follow Up Appt 3 months [facility] Work Phone: Start: 03-07-2015 End: 11-23-2015 Pacer Clinic Pacer Clinic [facility] Work Phone: Start: 11-19-2014 End: 11-23-2015 Follow Up Appt 3 months Follow Up Appt 3 months [facility] Work Phone: Start: 11-19-2014 End: 11-23-2015 Pacer Clinic Pacer Clinic [facility] Work Phone: Start: 11-19-2014 End: 11-23-2015 Follow Up Appt 3 months Follow Up Appt 3 months [facility] Work Phone: Start: 11-19-2014 End: 11-23-2015 Pacer Clinic Pacer Clinic [facility] Work Phone: Start: 10-19-2014 End: 10-25-2014 CBC W Auto Differential panel - Blood *CBC without Diff [facility] Work Phone: Start: 10-19-2014 End: 10-19-2014 Ecg routine ecg w/least 12 lds w/i&r EKG (In office) [facility] Work Phone: Start: 10-19-2014 End: 10-19-2014 Follow Up Appt 6 months Follow Up Appt 6 months [facility] Work Phone: Start: 10-19-2014 End: 10-19-2014 Nuclear stress test -Lexiscan Nuclear stress test -Lexiscan [facility] Work Phone: Start: 10-19-2014 End: 10-19-2014 PFM PFM [facility] Work Phone: Start: 10-19-2014 End: 10-25-2014 Thyroid stimulating hormone (TSH) *TSH [facility] Work Phone: Start: 10-19-2014 End: 10-25-2014 Thyroxine (T4) *T4 (Total) [facility] Work Phone: Start: 10-19-2014 End: 10-25-2014 CBC W Auto Differential panel - Blood *CBC without Diff [facility] Work Phone: Start: 10-19-2014 End: 10-19-2014 Electrocardiogram, complete EKG (In office) [facility] Work Phone: Start: 10-19-2014 End: 10-19-2014 Follow Up Appt 6 months Follow Up Appt 6 months [facility] Work Phone: Start: 10-19-2014 End: 10-19-2014 Nuclear stress test -Lexiscan Nuclear stress test -Lexiscan [facility] Work Phone: Start: 10-19-2014 End: 10-19-2014 PFM PFM [facility] Work Phone: Start: 10-19-2014 End: 10-25-2014 Thyroid stimulating hormone (TSH) *TSH [facility] Work Phone: Start: 10-19-2014 End: 10-25-2014 Thyroxine (T4) *T4 (Total) [facility] Work Phone: Start: 08-16-2014 End: 10-05-2014 Follow Up Appt 3 months Follow Up Appt 3 months [facility] Work Phone: Start: 08-16-2014 End: 10-05-2014 Pacer Clinic Pacer Clinic [facility] Work Phone: Start: 08-16-2014 End: 10-05-2014 Follow Up Appt 3 months Follow Up Appt 3 months [facility] Work Phone: Start: 08-16-2014 End: 10-05-2014 Pacer Clinic Pacer Clinic [facility] Work Phone: Start: 05-17-2014 End: 10-05-2014 Follow Up Appt 3 months Follow Up Appt 3 months [facility] Work Phone: Start: 05-17-2014 End: 10-05-2014 Pacer Clinic Pacer Clinic [facility] Work Phone: Start: 05-17-2014 End: 10-05-2014 Follow Up Appt 3 months Follow Up Appt 3 months [facility] Work Phone: Start: 05-17-2014 End: 10-05-2014 Pacer Clinic Pacer Clinic [facility] Work Phone: Start: 04-19-2014 End: 10-15-2014 *Hepatic Function Panel *Hepatic Function Panel [facility] Work Phone: Start: 04-19-2014 [...] Lipid panel [AGGREGATE] *Lipid Profile CC PCP [facility] Work Phone: Start: 04-19-2014 End: 04-19-2014 MMM MMM [facility] Work Phone: Start: 04-05-2014 End: 10-05-2014 *Hepatic Function Panel *Hepatic Function Panel [facility] Work Phone: Start: 04-05-2014 End: 10-05-2014 Lipid panel [AGGREGATE] *Lipid Profile CC PCP [facility] Work Phone: Start: 04-05-2014 End: 10-05-2014 *Hepatic Function Panel *Hepatic Function Panel [facility] Work Phone: Start: 04-05-2014 End: 10-05-2014 Lipid panel [AGGREGATE] *Lipid Profile CC PCP [facility] Work Phone: Start: 02-11-2014 End: 10-05-2014 Follow Up Appt 3 months Follow Up Appt 3 months [facility] Work Phone: Start: 02-11-2014 End: 10-05-2014 Pacer Clinic Pacer Clinic [facility] Work Phone: Start: 02-11-2014 End: 10-05-2014 Follow Up Appt 3 months Follow Up Appt 3 months [facility] Work Phone: Start: 02-11-2014 End: 10-05-2014 Pacer Clinic Pacer Clinic [facility] Work Phone: Start: 11-11-2013 End: 10-05-2014 Follow Up Appt 3 months Follow Up Appt 3 months [facility] Work Phone: Start: 11-11-2013 End: 10-05-2014 Pacer Clinic Pacer Clinic [facility] Work Phone: Start: 11-11-2013 End: 10-05-2014 Follow Up Appt 3 months Follow Up Appt 3 months [facility] Work Phone: Start: 11-11-2013 End: 10-05-2014 Pacer Clinic Pacer Clinic [facility] Work Phone: Start: 10-12-2013 End: 10-12-2013 *Hepatic Function Panel *Hepatic Function Panel [facility] Work Phone: Start: 10-12-2013 End: 10-12-2013 Follow Up Appt 6 months Follow Up Appt 6 months [facility] Work Phone: Start: 10-12-2013 End: 10-12-2013 Lipid panel [AGGREGATE] *Lipid Profile CC PCP [facility] Work Phone: Start: 10-12-2013 End: 10-12-2013 PFM PFM [facility] Work Phone: Start: 10-12-2013 End: 10-12-2013 *Hepatic Function Panel *Hepatic Function Panel [facility] Work Phone: Start: 10-12-2013 End: 10-12-2013 Follow Up Appt 6 months Follow Up Appt 6 months [facility] Work Phone: Start: 10-12-2013 End: 10-12-2013 Lipid panel [AGGREGATE] *Lipid Profile CC PCP [facility] Work Phone: Start: 10-12-2013 End: 10-12-2013 PFM PFM [facility] Work Phone: Start: 10-04-2013 End: 10-13-2013 *Hepatic Function Panel *Hepatic Function Panel [facility] Work Phone: Start: 10-04-2013 End: 10-13-2013 Lipid panel [AGGREGATE] *Lipid Profile CC PCP [facility] Work Phone: Start: 10-04-2013 End: 10-13-2013 *Hepatic Function Panel *Hepatic Function Panel [facility] Work Phone: Start: 10-04-2013 End: 10-13-2013 Lipid panel [AGGREGATE] *Lipid Profile CC PCP [facility] Work Phone: Start: 08-05-2013 End: 10-01-2013 Follow Up Appt 2 months Follow Up Appt 2 months [facility] Work Phone: Start: 08-05-2013 [...] 05-04-2013 End: 10-01-2013 Pacer Clinic Pacer Clinic [facility] Work Phone: Start: 05-04-2013 End: [...] Phone: Start: 04-10-2013 End: 10-05-2014 *BMP *BMP [facility] Work Phone: Start: 04-10-2013 End: 10-05-2014 *Hepatic Function Panel *Hepatic Function Panel [facility] Work Phone: Start: 04-10-2013 End: 10-05-2014 *UA - Urinalysis w/o Micro *UA - Urinalysis w/o Micro [facility] Work Phone: Start: 04-10-2013 End: 10-05-2014 CBC W Auto Differential panel - Blood *CBC without Diff [facility] Work Phone: Start: 04-10-2013 End: 10-05-2014 Chest x-ray X-Ray, Chest, PA & Lateral [facility] Work Phone: Start: 04-10-2013 End: 04-20-2013 Ecg routine ecg w/least 12 lds w/i&r EKG (In office) [facility] Work Phone: Start: 04-10-2013 End: 10-01-2013 Follow Up Appt 3 months Follow Up Appt 3 months [facility] Work Phone: Start: 04-10-2013 End: 04-10-2013 Follow Up Appt 6 months Follow Up Appt 6 months [facility] Work Phone: Start: 04-10-2013 End: 10-05-2014 INR Coag RelTime (PPP) *PT/INR [facility] Work Phone: Start: 04-10-2013 End: 10-05-2014 Lipid panel [AGGREGATE] *Lipid Profile CC PCP [facility] Work Phone: Start: 04-10-2013 End: 04-10-2013 MMM MMM [facility] Work Phone: Start: 04-10-2013 End: 04-10-2013 Pacemaker Generator Change Pacemaker Generator Change [facility] Work Phone: Start: 04-10-2013 End: 10-01-2013 Pacer Clinic Pacer Clinic [facility] Work Phone: Start: 04-10-2013 End: 10-05-2014 *BMP *BMP [facility] Work Phone: Start: 04-10-2013 End: 10-05-2014 *Hepatic Function Panel *Hepatic Function Panel [facility] Work Phone: Start: 04-10-2013 End: 10-05-2014 *UA - Urinalysis w/o Micro *UA - Urinalysis w/o Micro [facility] Work Phone: Start: 04-10-2013 End: 10-05-2014 CBC W Auto Differential panel - Blood *CBC without Diff [facility] Work Phone: Start: 04-10-2013 End: 10-05-2014 Chest x-ray X-Ray, Chest, PA & Lateral [facility] Work Phone: Start: 04-10-2013 End: 10-05-2014 Coagulation factor induced.INR assay in platelet poor plasma *PT/INR [facility] Work Phone: Start: 04-10-2013 End: 04-20-2013 Electrocardiogram, complete EKG (In office) [facility] Work Phone: Start: 04-10-2013 End: 10-01-2013 Follow Up Appt 3 months Follow Up Appt 3 months [facility] Work Phone: Start: 04-10-2013 End: 04-10-2013 Follow Up Appt 6 months Follow Up Appt 6 months [facility] Work Phone: Start: 04-10-2013 End: 10-05-2014 Lipid panel [AGGREGATE] *Lipid Profile CC PCP [facility] Work Phone: Start: 04-10-2013 End: 04-10-2013 MMM MMM [facility] Work Phone: Start: 04-10-2013 End: 04-10-2013 Pacemaker Generator Change Pacemaker Generator Change [facility] Work Phone: Start: 04-10-2013 End: 10-01-2013 Pacer Clinic Pacer Clinic [facility] Work Phone: Start: 12-31-2012 End: 10-01-2013 Follow Up Appt 3 months Follow Up Appt 3 months [facility] Work Phone: Start: 12-31-2012 End: 10-01-2013 Pacer Clinic Pacer Clinic [facility] Work Phone: Start: 12-31-2012 End: 10-01-2013 Follow Up Appt 3 months Follow Up Appt 3 months [facility] Work Phone: Start: 12-31-2012 End: 10-01-2013 Pacer Clinic Pacer Clinic [facility] Work Phone: Start: 10-04-2012 End: [...] Start: 09-26-2012 End: 09-26-2012 Echocardiography Echocardiogram (limited) [facility] Work Phone: Start: 09-26-2012 End: 09-26-2012 Follow Up Appt 3 months Follow Up Appt 3 months [facility] Work Phone: Start: 09-26-2012 End: 09-26-2012 Follow Up Appt 6 months Follow Up Appt 6 months [facility] Work Phone: Start: 09-26-2012 [...] 09-26-2012 End: 09-26-2012 Pacer Clinic Pacer Clinic [facility] Work Phone: Start: 09-26-2012 End: 09-26-2012 PFM PFM [facility] Work Phone: Start: 04-05-2012 End: 11-08-2011 *Hepatic Function Panel *Hepatic Function Panel [facility] Work Phone: Start: 04-05-2012 End: 11-08-2011 Lipid panel [AGGREGATE] *Lipid Profile [facility] Work Phone: Start: 04-05-2012 End: 11-08-2011 *Hepatic Function Panel *Hepatic Function Panel [facility] Work Phone: Start: 04-05-2012 End: 11-08-2011 Lipid panel [AGGREGATE] *Lipid Profile [facility] Work Phone: Start: 02-25-2012 End: 10-01-2013 Follow Up Appt 6 months Follow Up Appt 6 months [facility] Work Phone: Start: 02-25-2012 End: 02-25-2012 Nuclear stress test -adenosine Nuclear stress test -adenosine [facility] Work Phone: Start: 02-25-2012 End: 10-01-2013 Follow Up Appt 6 months Follow Up Appt 6 months [facility] Work Phone: Start: 02-25-2012 [...] Start: 08-23-2011 End: 08-23-2011 Echocardiography Echocardiogram (complete) [facility] Work Phone: Start: 08-23-2011 End: 10-01-2013 Follow Up Appt 6 months Follow Up Appt 6 months [facility] Work Phone: Start: 08-23-2011 End: 08-23-2011 Echocardiography Echocardiogram (complete) [facility] Work Phone: Start: 08-23-2011 End: 10-01-2013 Follow Up Appt 6 months Follow Up Appt 6 months [facility] Work Phone: Start: 09-24-2008 PNEUMOCOCCAL: 65+ (1 - PCV) PNEUMOCOCCAL: 65+ (1 - PCV) [facility] Start: 09-24-2008 PNEUMOVAX AGE 65 AND OVER WITH 5YR LOOKBACK (#1) PNEUMOVAX AGE 65 AND OVER WITH 5YR LOOKBACK (#1) [facility] Start: 2003 RSV Vaccine (1 - 1-dose 60+ series) RSV Vaccine (1 - 1-dose 60+ series) [facility] Start: 09-24-1993 SHINGRIX VACCINE (1 of 2) SHINGRIX VACCINE (1 of 2) [facility] Start: 09-24-1988 DIABETES SCREEN DIABETES SCREEN [facility] Start: 09-24-1988 Diabetes Screening Diabetes Screening [facility] Start: 09-24-1962 Urine microalbumin profile [facility] Start: 09-24-1961 Anxiety Screening Anxiety Screening [facility] Start: 09-24-1961 Depression Screening Depression Screening [facility] Start: 09-24-1961 HEPATITIS C SCREENING HEPATITIS C SCREENING [facility] Start: 1955 Adult depression screening assessment DEPRESSION SCREENING [facility] Patient Education HYPERLIPIDEMIA , HYPERTENSION [facility] Work [facility] Immunizations Immunization Date Immunization Notes Care Provider Fa narcisa 05-11-2022 influenza virus vacc ine, unspecified formulation Willie Matthews MD Work Phone: [facility] Payers Date Payer Category Payer Medicare HUMANA MEDICARE HU[employer]NA MEDICARE PPO [id number] 2019-Present [phone] [id number] [place] [address] PPO [id number] 2019 Medicare HUMANA MEDICARE HU[employer]NA MEDICARE PPO [id number] 2019-Present [phone] [address] [address] [place] [address] PPO [id number] 2019 Medicare [id number] Social History Date Type Detail Facility Start: 01-16-2022 Tobacco smoking stat us WIIS Never smoked tobacco [facility] Start: 09-20-2021 End: 09-19-2022 Alcohol intake Current non-drinker of alcohol (finding) [facility] Start: 1945 Sex Assigned At Not on file [facility] Start: 09-10-2021 End: 01-16-2022 Exposure to SARS-CoV-2 (event) Not sure [facility] Start: 01-16-2022 Tobacco use and exposure Smoke less tobacco non-user [facility] Start: 09-19-2022 History of Social function [facility] Start: 09-19-2022 Tobacco use panel [facility] National Score (1-10 0), lower number is lower risk 54 [facility] Clinical Notes 09-20-2021 to 11-18-2023 Telephone Encounter [...] times daily. Authorizing Provider: WILLIE MATTHEWS MD [facility] 11-18-2023 Miscellaneous Notes Please advise patient he [...] Rosetta Valiente MA documented in this encounter [facility] 11-15-2023 Telephone encounter Note Patient has been [...] Please review and advise. Rosetta Valiente MA [facility] 09-16-2023 Telephone encounter Note Called and spoke with Patient's spouse. Relayed message below. An appointment was not scheduled at this time. Spouse states they will call back to schedule at another time. Edelmira Farr [facility] 09-16-2023 Miscellaneous Notes Called and spoke with [...] Rosetta Valiente MA documented in this encounter [facility] 09-02-2023 Telephone encounter Note Please advise patient he is overdue for follow-up and please facilitate scheduling appointment with me or OLE (has seen James). The following approved medication requests have been transmitted electronically. Requested Prescriptions Signed Prescriptions Disp Refills carbidopa-levodopa (SINEMET 25-100) 25-100 mg per tablet 540 tablet 0 Sig: Take 1.5 tablets by mouth four times daily. Authorizing Provider: WILLIE MATTHEWS MD [facility] 09-02-2023 Telephone encounter Note Patient has been [...] Please review and advise. Rosetta Valiente MA [facility] 09-19-2022 Note HNO ID: [id number] Author: Willie Matthews MD Service: ? Author [...] male patient. Sean (more content not included)... [facility] 08-28-2022 Miscellaneous Notes Attempted to return [...] for him now. Number to return call [phone] Okay to leave a message ? Last office visit 01/16/22 with James No visit scheduled. Thank you calling [facility] [place]. You will receive a return call within 48 hours ( or 2 business days if close to the weekend). If you feel that this is an urgent issue and needs immediate attention, it is recommended that you contact your primary care provider office or proceed to your nearest Urgent Care Center of Emergency Room ED for evaluation/treatment. documented in this encounter [facility] 01-22-2022 Miscellaneous Notes Request from patient requesting refill. RX prescribed by previous neurologist. Please E-Scribe [facility] Last OV: 01/16/22 with SS Future OV: 07/16/22 with KA Requested Prescriptions Pending Prescriptions Disp Refills sertraline (ZOLOFT) 100 mg tablet 90 tablet 3 Sig: Take 1 tablet by mouth once daily. Jerica Mclaughlin documented in this encounter [facility] 01-16-2022 Note HNO ID: [id number] Author: James Bernal APRN.PAROLE HEARING OFFICER Service: ? Author Type: Nurse Practitioner Type: [...] to him later. Loses train of thought. [facility] Cognitive Assessment (MoCA): 15 (01/16/2022 3:30 PM) [...] of exam Medicatio (more content not included)... [facility] 01-16-2022 Instructions James Bernal APRN.[facility] - 01/16/2022 4:03 PM EDT For your [...] potential for hallucinations. documented in this encounter [facility] 01-16-2022 History of Present illness Narrative [...] to him later. Loses train of thought. [facility] Cognitive Assessment (MoCA): 15 (01/16/2022 3:30 PM) [...] not have Parkinson's disease. I did a [place] today, and he scored a 15. Due [...] potential for hallucinations. Level of service : 01410 (40-54 min). Time spent 45 min on the day of service, which included preparing to see the patient, ermd-ju-ohzf patient care, completing clinical documentation, obtaining and/or [...] call with any questions. Sincerely, James Bernal APRN.PAROLE HEARING OFFICER documented in this encounter [facility] 09-20-2021 Note HNO ID: [id number] Author: Willie Matthews MD Service: ? Author [...] one(1) tablet daily. (more content not included)... [facility] 09-20-2021 Instructions Willie Matthews MD - [...] or you can send a message through [employer]. You can also now schedule and select appointments through [employer]. Willie Matthews MD Constipation and Other Gastrointestinal [...] future constipation. Treatments fall into two categories: hsbk-cgc-pdlnifu and prescription therapies. Remember: consult with your [...] day and your own convenience and preference. Fpse-yne-Ygrankl Products Iwjm-txx-xsthpmb treatments for constipation can be purchased at [...] It also comes as a capsule (Senna [place] Smooth Move ). ving with PD Constipation [...] easier to pass. These can be used supervisor long goods but should not be used in combination [...] after other remedies have failed. Among the khfg-krl-anzcqbz laxatives, they are most likely to cause [...] psyllium (Perdiem ). Common Side Effects of Eetj-wwg-Hsnhwmq Products for Constipation Emollient (Stool Softeners) Skin [...] any side effects listed. Prescription Products When itjo-ykq-kjugqob remedies fail, your healthcare provider may recommend [...] Stimulant X Bisacodyl (Dulcolax ) Stimulant X [place] Oil Stimulant X Cellulose (Unifiber ) Bulk [...] Docusate (Senokot ) Stimulant X Adapted from: [facility] Website, accessed August 30, 2015, www.[email or web address]/health/druginfo rmation/ [id number] Special Precautions For your safety, consult your [...] For more information and resources see [email or web address].parkinson.org/. [facility] is a Center of Excellence for the Parkinson s Foundation. documented in this encounter [facility] 09-20-2021 History of Present illness Narrative [...] now. Diagnosed around that time. Neurologist left [facility]. Would like walking to be better. Doesn't [...] Coronary atherosclerosis of unspecified type of vessel, [place] or graft, Essential hypertension, benign, Other and [...] 2+ 2+ Achilles 1+ 1+ Coordination Right: Dqbfri-nj-gilw normal. Rapid alternating movement normal. Left: Zpwaxp-jc-smzb normal. Rapid alternating movement normal. Movement Disorders [...] Willie Matthews MD documented in this encounter [facility] Evaluation note Diagnosis Parkinson disease (HCC)- Primary Paralysis agitans RBD (REM behavioral disorder) REM sleep behavior disorder Gait instability Abnormality of gait [facility] Diagnosis Parkinson disease (HCC)- Primary Paralysis agitans [facility] [place] [facility] Diagnosis Parkinson disease (HCC) Paralysis agitans documented in this encounter [facility] Reason for Referral Specialty Diagnoses / Procedures Referred By Ayaz jimenez Referred To Contact Diagnoses Parkinson disease (HCC) Procedures PROVIDER ORDERED FOLLOW UP OFFICE/OUTPATIENT [facility] 60-74 MINUTES Willie Matthews MD [address] [address] Referral ID Status Reason Start Date Expiration Date Visits Requested Visits Authorized [id number] Authorized PCP Requested Referral 12/21/2021 09/20/2022 1 1 Specialty Diagnoses / Procedures Referred By Ayaz jimenez Referred To Contact [facility] Diagnoses Parkinson disease (HCC) Gait instability Procedures CONSULT TO PHYSICAL THERAPY PHYSICAL THERAPY EVALUATION HIGH COMPLEX 45 MINS Willie Matthews MD [address] [address] [facility] [address] [address] Referral ID Status Reason Start Date Expiration Date Visits Requested Visits Authorized [id number] Pending Review Auto-Generat ed Referral 09/20/2021 09/20/2022 1 1 Specialty Diagnoses / Procedures Referred By Ayaz t Referred To Contact Diagnoses Parkinson disease (HCC) Procedures CONSULT TO [facility] James Bernal APRN.PAROLE HEARING OFFICER [address] [place] [address] [facility] [address] [place] [address] Referral ID Status Reason Start Date Expiration Date Visits Requested Visits Authorized [id number] Authorized PCP Requested Referral 01/16/2022 04/16/2022 1 1 Specialty Diagnoses / Procedures Referred By Ayaz jimenez Referred To Contact Diagnoses Parkinson disease (HCC) Procedures PROVIDER ORDERED FOLLOW UP OFFICE/OUTPATIENT [facility] 60 MINUTES Willie Matthews MD [address] [place] [address] Referral ID Status Reason Start Date Expiration Date Visits Requested Visits Authorized [id number] Authorized PCP Requested Referral 10/02/2023 09/01/2024 1 1 Referral ID Status Reason Start Date Expiration Date Visits Requested Visits Authorized [id number] Authorized PCP Requested Referral 12/19/2023 11/17/2024 1 [...] or prosecute any alcohol or drug abuse patient.[facility] the event this information is protected by the Federal Confidentiality of Alcohol and Drug Abuse Patient Records regulations: The Federal rules restrict any use of the information to criminally investigate or prosecute any alcohol or drug abuse patient.[facility] the event this information is protected by the Federal Confidentiality of Alcohol and Drug Abuse Patient Records regulations: The Federal rules restrict any use of the information to criminally investigate or prosecute any alcohol or drug abuse patient.[facility] Hospital[facility] the event this information is protected by the Federal Confidentiality of Alcohol and Drug Abuse Patient Records regulations: The Federal rules restrict any use of the information to criminally investigate or prosecute any alcohol or drug abuse patient.[facility] Hospital[facility] the event this information is protected by the Federal Confidentiality of Alcohol and Drug Abuse Patient Records regulations: The Federal rules restrict any use of the information to criminally investigate or prosecute any alcohol or drug abuse patient.[facility] the event this information is protected by the Federal Confidentiality of Alcohol and Drug Abuse Patient Records regulations: The Federal rules restrict any use of the information to criminally investigate or prosecute any alcohol or drug abuse patient.[facility] Reason for Visit (unrecogniz ed section and content) Reason Comments New Patient Parkinson's Disease Reason Comments Parkinson's Disease Specialty Diagnoses / Procedures Referred By Ayaz t Referred To Contact Diagnoses Parkinson disease (HCC) Procedures PROVIDER ORDERED FOLLOW UP OFFICE/OUTPATIENT [facility] 60-74 MINUTES Willie Matthews MD [address] [facility] [address] [place] [address] Referral ID Status Reason Start Date Expiration Date V isits Requested Visits Authorized [id number] Closed PCP Requested Referral 12/21/2021 09/20/2022 1 1 Reason Onset Date Comments Refill Request 01/22/2022 Reason Comments Symptom Management Reason Onset Date Comments Refill Request 09/02/2023 Reason Onset Date Comments Refill Request 11/15/2023 Care Teams (unrecognized sec tion and content) Bridge Builder Relationship Specialty Start Date End Date Luli Hays PCP - General 08/21/00 Bridge Builder Relationship Specialty Start Date End Date Luli Hays PCP - General 08/21/00 Bridge Builder Relationship Specialty Start Date End Date Luli Hays PCP - General 08/21/00 Bridge Builder Relationship Specialty Start Date End Date Luli Hays PCP - General 08/21/00 James Bernal, FLAT LOCKER.PAROLE HEARING OFFICER [address] [place] [address] Specialty [facility] 02/21/22 Rina Irvin, FLAT LOCKER.PAROLE HEARING OFFICER [address] [place] [address] Specialty [facility] 05/21/22 Bridge Builder Relationship Specialty Start Date End Date Luli Hays PCP - General 08/21/00 James Benral, FLAT LOCKER.PAROLE HEARING OFFICER [address] [place], [place] [id number] Specialty [facility] 02/21/22 Rina Irvin, RENATA.PAROLE HEARING OFFICER [address] [place], [place] [id number] Specialty [facility] 05/21/22 Willie Matthews MD [address] [id number] Specialty [facility] 04/24/23 (unrecognized sect ion and content) No Status Records Found INFORMATION SOURCE (unrecogn ized section and content) DATE CREATED AUTHOR 09/20/2022 [facility] FOR RECORDS PERTAINING TO PATIENTS WHO ARE [...] ON THE PRIMARY CLINICAL RECORDS. [facility] [employer] provides no warranty or guarantee of the accuracy or completeness of information in this document.
[2024-01-18 20:45] VITALS: BP 97/59; PULSE 67; RESP 18; TEMP 36.7; O2SAT 98
[2024-01-18 20:46] VITALS: BMI 19.5
[2024-01-18 21:12] VITALS: BP 88/59; BP 89/63; BP 96/65; PULSE 60; PULSE 81
[2024-01-18] MEDS: 0.9% Saline Lock 10 ML Syringe IV (21:32)
[2024-01-18] MEDS: 0.9% Normal Saline (1000mL) 1,000 ML 100 ML IV (21:33)
[2024-01-18] MEDS: Atorvastatin Calcium 80 MG Tablet PO (21:36)
[2024-01-18] MEDS: Mirtazapine 30 MG Tablet PO (21:37)
[2024-01-18] MEDS: Carbidopa/Levodopa 25/100 Tablet PO (21:37)
[2024-01-19 02:53] VITALS: BP 108/55; PULSE 61; RESP 18; TEMP 36.4; O2SAT 99
[2024-01-19 05:13] LABS: Absolute Lymphocyte Count 1.28 X10^3/uL (0.83-4.51); Absolute Neutrophil Count 6.1 X10^3/uL (2.0-7.7); Basophil# 0.05 X10^3/uL; Basophil% 0.6 % (0-1); Eosinophil# 0.11 X10^3/uL; Eosinophils% 1.3 % (0-5); Hematocrit 32.2 % (40-54); Hemoglobin 10.7 g/dL (13.0-16.5); Lymphocyte # 1.28 X10^3/ul (0.83-4.51); Lymphocyte % 15.1 % (19-41); Mean Corp Hgb Conc 33.2 g/dL (32-36); Mean Corpuscular Hgb 32.9 pg (27.0-32.0); Mean Corpuscular Volume 99.1 fL (80-94); Mean Platelet Vol. 8.9 fl (6.2-12.0); Monocyte# 0.88 X10^3/uL; Monocyte% 10.4 % (0-10); NRBC Flagged by Analyzer 0 % (0-5); Neutrophil % 72.1 % (47-70); Platelet Count 178 K/mm3 (150-450); RBC Distribution Width CV 12.8 % (11.6-14.6); RBC Distribution Width SD 46.2 fl (35.1-43.9); Red Blood Count 3.25 M/mm3 (4.6-6.2); White Blood Count 8.5 K/mm3 (4.4-11.0)
[2024-01-19 05:29] LABS: Anion Gap 5 (5-15); BUN 47 mg/dL (7-18); BUN/Creat Ratio 38.5 RATIO (10-20); Calcium,Total 9.3 mg/dL (8.5-10.1); Chloride 111 mmol/L (98-107); Creatinine, Serum 1.22 mg/dL (0.70-1.30); EST Glomerular Filtration Rate 61 mL/min (>60); Est Glom Filt Rate - Afr Amer 73 mL/min (>60); Estimated Creatinine Clearance 42.14 ml/min; Glucose 90 mg/dL (74-106); Potassium 4.9 mmol/L (3.5-5.1); Sodium Level 139 mmol/L (136-145)
[2024-01-19 06:10] VITALS: BP 109/63; PULSE 60; RESP 18; TEMP 36.4; O2SAT 99
[2024-01-19] MEDS: Carbidopa/Levodopa 25/100 Tablet PO ×4 (06:11→22:05)
[2024-01-19] MEDS: 0.9% Normal Saline (1000mL) 1,000 ML 100 ML IV (07:18)
[2024-01-19 09:32] VITALS: BP 104/74; PULSE 72; RESP 17; TEMP 36.5; O2SAT 96
[2024-01-19] MEDS: Aspirin E.C. 81 MG Tablet PO (09:38)
[2024-01-19 09:39] VITALS: PULSE 68
[2024-01-19] MEDS: Tamsulosin HCl 0.4 MG Capsule PO (09:39)
[2024-01-19] MEDS: Finasteride 5 MG Tablet PO (09:39)
[2024-01-19] MEDS: Metoprolol(XL)Succ 25 MG Tablet PO (09:39)
[2024-01-19] MEDS: Ascorbic Acid 500 MG Tablet PO (09:39)
--- NOTE | 2024-01-19 14:11 | PCM.PN.HOSP ---
Reason for Visit Reason for Visit: Diagnoses Acute kidney failure, unspecified (01/18/24) Syncope and collapse (01/18/24) Subjective Subjective Saw patient at bedside this morning and later this afternoon. Family present at bedside this afternoon. Patient reported feeling much improved today from yesterday. He did have orthostatic vital signs done this morning that were negative. Blood pressure has remained low normal around 100s to 110s systolic off of his home blood pressure and diuretic medications. Patient has a longstanding history of Parkinson's disease and family has recently been working with his primary care doctor to try to get him set up for home health care. He lives at home with his who just had a neck procedure done and had a neck brace on in the room when I saw them. She noted that she is having more difficulty caring for him at home. Patient has not been evaluated by therapy yet here. Given his syncopal episode seems to be due to a degree of overmedication, noted to family that it would be prudent to monitor him for another day in the hospital to watch his blood pressure trend and determine which home medications can be added back on safely prior to discharge. Also noted that we can have therapy see him here tomorrow and determine if he would qualify for home health care. Patient and family were agreeable with this plan. Objective Data Objective Data Vital Signs: Vital Signs Temp Pulse Resp BP Pulse Ox O2 Del Method 97.7 F L 68 17 104/74 96 Room Air 01/19/24 09:32 01/19/24 09:39 01/19/24 09:32 01/19/24 09:32 01/19/24 09:32 01/19/24 09:44 Oxygen Delivery Method Room Air Weight: 61.7 kg Body Mass Index (BMI) 19.5 Intake & Output: Intake and Output for Last 24 Hours 01/17/24 01/18/24 01/19/24 23:59 23:59 23:59 Intake Total 920 / 920 1095 / 1095 Output Total 250 / 250 450 / 450 Balance 670 / 670 645 / 645 Medical Nutrition Assessment Dietitian: Malnutrition Criteria Met Start: 01/19/24 10:15 Freq: Status: Active Protocol: Document 01/19/24 10:15 ALESHA (Rec: 01/19/24 10:15 ALESHA [id number]) Nutrition Malnutrition Evidence of Malnutrition Exists Yes Evidenced By Suboptimal Energy Intake ( Severe),Weight Loss (Severe) Clinical Problem Acute Disease or Injury Related Malnutrition Etiology related to inadequate energy intake Signs/Symptoms as evidenced by pt meeting <75 % of est nutritional needs and has had 7.5% unintended wt loss x 2 wks. Status Active Problem Recommendation Dietitian Recommendations/Changes Continue Cardiac diet as ordered Rec pt have 2-3 bottles ensure at home for increased nutrition if consumed d/t sig wt loss and signs/symptoms of malnutrition. Lab / Micro Data 01/19/24 04:45 01/19/24 04:45 Labs: Laboratory Results - last 24 hr 01/18/24 15:42: WBC 6.4, RBC 3.15 L, Hgb 10.6 L, Hct 30.3 L, MCV 96.2 H, MCH 33.7 H, MCHC 35.0, RDW Std Deviation 45.4 H, RDW Coeff of Patricia 12.9, Plt Count 177, MPV 9.5, Sodium 138, Potassium 4.2, Chloride 108 H, Carbon Dioxide 20.0 L, Anion Gap 10, BUN 55 H, Creatinine 1.83 H, Estim Creat Clear Calc 30.22, Est GFR (MDRD) Af Amer 46 L, Est GFR (MDRD) Non-Af 38 L, BUN/Creatinine Ratio 30.1 H, Glucose 139 H, Calcium 9.3, Troponin I High Sens 17, B-Natriuretic Peptide 58.4 01/18/24 16:08: Urine Color Yellow, Urine Clarity Clear, Urine pH 5.0, Ur Specific [place] 1.020, Urine Protein Negative, Urine Glucose (UA) Normal, Urine Ketones 5 H, Urine Occult Blood Negative, Urine Nitrite Negative, Urine Bilirubin Negative, Urine Urobilinogen Normal, Ur Leukocyte Esterase Negative, Urine RBC 0 SEEN, Urine WBC 0 SEEN, Ur Squamous Epith Cells 0 SEEN, Urine Bacteria 0 SEEN, Urine Mucus 0 SEEN 01/18/24 17:45: Troponin I High Sens 27 01/19/24 04:45: WBC 8.5, RBC 3.25 L, Hgb 10.7 L, Hct 32.2 L, MCV 99.1 H, MCH 32.9 H, MCHC 33.2 D, RDW Std Deviation 46.2 H, RDW Coeff of Patricia 12.8, Plt Count 178, MPV 8.9, Immature Gran % (Auto) 0.500, Neut % (Auto) 72.1 H, Lymph % (Auto) 15.1 L, [place] % (Auto) 10.4 H, Eos % (Auto) 1.3, Baso % (Auto) 0.6, Absolute Neuts (auto) 6.1, Absolute Lymphs (auto) 1.28, Nucleated RBC % 0, Sodium 139, Potassium 4.9, Chloride 111 H, Carbon Dioxide 23.0, Anion Gap 5, BUN 47 H, Creatinine 1.22, Estim Creat Clear Calc 42.14, Est GFR (MDRD) Af Amer 73, Est GFR (MDRD) Non-Af 61, BUN/Creatinine Ratio 38.5 H, Glucose 90, Calcium 9.3 Radiography Diagnostic Testing: Radiology Impression Chest X-Ray 01/18/24 15:48 IMPRESSION: No change in the appearance the chest from the reference exam. No acute pulmonary abnormality. Electronically Signed: Mynor Xie MD at 16:17 EDT , Physical Exam Const alert, oriented x3 and no apparent distress Constitutional Narrative: Elderly male, thin and chronically ill-appearing but otherwise with good energy level today, sitting up comfortably in bed, in no acute distress. General Appearance: cooperative and comfortable HEENT normocephalic, head/scalp atraumatic, hearing grossly normal bilaterally, nasal mucous membranes and turbinates normal and moist oral mucous membranes Eyes PERRL, EOMs intact bilaterally and conjunctivae normal Neck full ROM Chest inspection of chest normal Resp normal respiratory effort, normal air movement, no use of accessory muscles and clear to auscultation bilaterally Cardio regular rate, regular rhythm, no murmurs and peripheral pulses 2+ throughout GI normal to inspection, nondistended, normoactive bowel sounds, soft to palpation, non-tender and non-distended Back/Spine normal ROM Extremity normal to inspection Extremity Narrative: Parkinson's tremor noted. Skin no rashes or lesions noted Neuro no sensory deficits noted Speech: speech normal Psych mental status grossly normal Assessment & Plan Assessment/Plan (1) Syncope: (2) Acute kidney injury: (3) Parkinson's disease: (4) Debility: PLAN: Plan Patient is an 78-year-old male who presented to [facility] ED on 01/18/2024 after a syncopal episode at home. 1. Syncopal episode with dehydration, improving ? 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 Home diuretics and blood pressure medications aside from Toprol held on admission and patient given 2 L of IV fluids with improvement in blood pressure and no further presyncopal symptoms. Will continue to hold home meds for now and monitor blood pressure with repeat orthostatic vitals tomorrow. Will need to determine ongoing medication regimen prior to discharge and patient will likely need close outpatient follow-up with cardiology after discharge. 2. CHRIS, improving ? Creatinine 1.83 on admit, improved to 1.22 on hospital day 2. Baseline creatinine appears to be around 1.0. Presumed prerenal CHRIS from dehydration from overmedication as noted above. Good urine output noted. No need to monitor further BMPs while inpatient. 3. Chronic systolic CHF, history of CAD s/p stent placement, history of pacemaker placement, hypertension, hyperlipidemia ? Follows with [facility]. Last office visit was on 12/18. Most recent echo in 08/27 showed EF 30% with similar findings to prior echo from 2021. Home medication regimen on admit of Lasix 20 mg daily, Toprol 25 mg daily, ramipril 10 mg twice daily and spironolactone 25 mg daily. Suspect some degree of overmedication causing syncopal episode on admission as noted above. Suspect Parkinson's disease may be contributing to lower blood pressures at baseline and thus patient may need less medication for heart failure moving forward. Patient notably had pacemaker battery changed out on 12/30 without issue, and pacemaker check on 01/15 was unremarkable. Will determine home-going regimen on discharge as noted above. Continue home aspirin and statin. 4. Parkinson's disease with acute on chronic debility ? PT/OT/case management consulted. Follows with outpatient neurology. Diagnosed about 17 years ago. Unable to find neurology notes in our system but patient is on carbidopa?levodopa 4 times daily and apparently had his dose increased somewhat recently due to worsening control of symptoms. Patient and family were working on getting home health care set up in outpatient setting, as is having more difficulty taking care of the patient at home. Will follow-up therapy recs tomorrow and will hopefully be okay for discharge home with home health care tomorrow. 5. Chronic anemia ? Hemoglobin stable at baseline of 10-11 during hospitalization. 6. BPH with obstructive symptoms ? Stable. Continue home finasteride and tamsulosin. DVT prophylaxis: Lovenox CODE STATUS: DNR CCA, DNI Expected disposition: Home with home health care, 1 to 2 days *Patient notably was admitted under observation status. However, given his weakness and debility with need for therapy evaluation and further medication changes to be made for his heart failure, will need to remain hospitalized past hospital day 2. Status changed to inpatient status. Total clinical time spent by myself addressing the patient's medical issues, reviewing all the data, and collaborating with patient's care team: 35 minutes. Charges/Coding Visit Charges Inpatient E&M: 56885 Subs Hosp L2
[2024-01-19 16:02] VITALS: BP 105/53; PULSE 65; RESP 16; TEMP 36.8; O2SAT 97
[2024-01-19] MEDS: 0.9% Saline Lock 10 ML Syringe IV ×2 (17:24→22:05)
[2024-01-19 22:00] VITALS: BP 102/60; PULSE 63; RESP 18; TEMP 36.8; O2SAT 98
[2024-01-19] MEDS: Mirtazapine 30 MG Tablet PO (22:05)
[2024-01-19] MEDS: Atorvastatin Calcium 80 MG Tablet PO (22:05)
[2024-01-20 03:29] VITALS: BP 104/60; PULSE 61; RESP 18; TEMP 36.3; O2SAT 98
[2024-01-20 05:46] VITALS: BMI 47.7
[2024-01-20] MEDS: Carbidopa/Levodopa 25/100 Tablet PO ×4 (06:15→20:53)
[2024-01-20 10:43] VITALS: BP 104/57; PULSE 75; RESP 16; TEMP 36.6; O2SAT 96
[2024-01-20 10:48] VITALS: BP 104/57; PULSE 74
[2024-01-20] MEDS: Aspirin E.C. 81 MG Tablet PO (10:48)
[2024-01-20] MEDS: Metoprolol(XL)Succ 25 MG Tablet PO (10:48)
[2024-01-20] MEDS: Ascorbic Acid 500 MG Tablet PO (10:48)
[2024-01-20] MEDS: Tamsulosin HCl 0.4 MG Capsule PO (10:48)
[2024-01-20] MEDS: Enoxaparin 40 MG/0.4 ML Syringe SC (10:48)
[2024-01-20] MEDS: Finasteride 5 MG Tablet PO (10:49)
[2024-01-20] MEDS: 0.9% Saline Lock 10 ML Syringe IV ×2 (11:02→20:55)
--- NOTE | 2024-01-20 12:10 | CASEMGMT ---
RAMIRO SULLIVAN Assessment: Face to Face with pt for initial transition planning/care coordination assessment. RAMIRO SULLIVAN introduced self and role at [facility], pt voices understanding and consents to assessment. Pt is A&O x4 and answers all questions appropriately at this time. Pt sitting up in bed in no distress. and Step-son sitting at bedside. Pt agreeable to discussing care with family present. Care providers, pharmacy, and demographics verified/updated. Strata: 2 Admitting Dx: Syncope PCP:[facility] Specialists: Eusebio, Supervisor [facility]; Neurologist, does not recall name of doctor. Preferred Pharmacy: [facility] Insurance: [employer] Prescription Benefit: yes LNOK: Living Arrangements: Pt lives with in a 1 story home with 2 steps to enter. ADLs: Pt requires assistance for ADLs and IADLs. Family has been considering HHC. Family asked for a list for private duty to help with showering/bathing needs. Family also asked about information about medical alert. Pt states pt is getting to be too much for her to care for him on her own. Pt family interested in palliative care as well. RAMIRO SULLIVAN provided family with information, family to discuss. Transportation: Pt family provides transportation. DME: walker, cane, shower chair. HHC/SNF: Denies Hx of. RAMIRO SULLIVAN discussed HHC, Privated duty, and palliative care options with the family. Will follow therapy to see how pt does. CM to follow. Advised pt to ask CM if any further question/concerns/needs arise, voices understanding. Pt Goal: TBD Plan: RAMIRO SULLIVAN to Follow therapy recommendations. Ally RUBIO CM
--- NOTE | 2024-01-20 12:30 | CASEMGMT ---
RAMIRO SULLIVAN into pt room, provided family with list of local private duty agencies. Also provided information about medical alert options in the area with a list of local providers.
[2024-01-20 15:53] VITALS: BP 100/78; PULSE 78; RESP 16; TEMP 36.6; O2SAT 97
--- NOTE | 2024-01-20 17:11 | PCM.PN.HOSP ---
Reason for Visit Reason for Visit: Diagnoses Parkinson's disease without dyskinesia, without mention of fluctuations (01/19/24) Acute kidney failure, unspecified (01/19/24) Other malaise (01/19/24) Syncope and collapse (01/19/24) Subjective Subjective Saw patient at bedside this morning. Patient was sitting up comfortably in bed, similar to yesterday but he did report feeling slightly more confused today than yesterday. He knew that he was at the hospital but did not remember what brought him in and felt less familiar with his surroundings than normal. He states that this has happened before and he was otherwise answering questions appropriately for me. He denied any acute pain or discomfort today. No other new concerns today. Objective Data Objective Data Vital Signs: Vital Signs Temp Pulse Resp BP Pulse Ox O2 Del Method 97.8 F 78 16 100/78 97 Room Air 01/20/24 15:53 01/20/24 15:53 01/20/24 15:53 01/20/24 15:53 01/20/24 15:53 01/20/24 15:53 Oxygen Delivery Method Room Air Weight: 151 kg Body Mass Index (BMI) 47.7 Intake & Output: Intake and Output for Last 24 Hours 01/18/24 01/19/24 01/20/24 23:59 23:59 23:59 Intake Total 920 / 920 2215 / 2215 Output Total 250 / 250 1100 / 1100 750 / 750 Balance 670 / 670 1115 / 1115 -750 / -750 Medical Nutrition Assessment Dietitian: Malnutrition Criteria Met Start: 01/19/24 10:15 Freq: Status: Active Protocol: Document 01/19/24 10:15 SLA (Rec: 01/19/24 10:15 SLA [id number]) Nutrition Malnutrition Evidence of Malnutrition Exists Yes Evidenced By Suboptimal Energy Intake ( Severe),Weight Loss (Severe) Clinical Problem Acute Disease or Injury Related Malnutrition Etiology related to inadequate energy intake Signs/Symptoms as evidenced by pt meeting <75 % of est nutritional needs and has had 7.5% unintended wt loss x 2 wks. Status Active Problem Recommendation Dietitian Recommendations/Changes Continue Cardiac diet as ordered Rec pt have 2-3 bottles ensure at home for increased nutrition if consumed d/t sig wt loss and signs/symptoms of malnutrition. Lab / Micro Data 01/19/24 04:45 01/19/24 04:45 Physical Exam Const alert, oriented x3 and no apparent distress Constitutional Narrative: Elderly male, thin and chronically ill-appearing, mildly confused appearing but still answering questions appropriately and sitting up comfortably in bed, in no acute distress. General Appearance: cooperative and comfortable HEENT normocephalic, head/scalp atraumatic, hearing grossly normal bilaterally, nasal mucous membranes and turbinates normal and moist oral mucous membranes Eyes PERRL, EOMs intact bilaterally and conjunctivae normal Neck full ROM Chest inspection of chest normal Resp normal respiratory effort, normal air movement, no use of accessory muscles and clear to auscultation bilaterally Cardio regular rate, regular rhythm, no murmurs and peripheral pulses 2+ throughout GI normal to inspection, nondistended, normoactive bowel sounds, soft to palpation, non-tender and non-distended Back/Spine normal ROM Extremity normal to inspection Extremity Narrative: Parkinson's tremor noted. Skin no rashes or lesions noted Neuro no sensory deficits noted Speech: speech normal Psych mental status grossly normal Psych Narrative: Flat affect. Assessment & Plan Assessment/Plan (1) Syncope: (2) Acute kidney injury: (3) Parkinson's disease: (4) Debility: PLAN: Plan Patient is an 78-year-old male who presented to [facility] ED on 01/18/2024 after a syncopal episode at home. 1. Syncopal episode with dehydration, improving ? 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 Home diuretics and blood pressure medications aside from Toprol held on admission and patient given 2 L of IV fluids with improvement in blood pressure and no further presyncopal symptoms. Blood pressure has remained low normal without resumption of home medications. Will continue to monitor blood pressure and plan to resume some home medications at low doses tomorrow as able. 2. CHRIS, improving ? Creatinine 1.83 on admit, improved to 1.22 on hospital day 2. Baseline creatinine appears to be around 1.0. Presumed prerenal CHRIS from dehydration from overmedication as noted above. Good urine output noted. No need to monitor further BMPs while inpatient. 3. Chronic systolic CHF, history of CAD s/p stent placement, history of pacemaker placement, hypertension, hyperlipidemia ? Follows with [facility]. Last office visit was on 12/18. Most recent echo in 08/27 showed EF 30% with similar findings to prior echo from 2021. Home medication regimen on admit of Lasix 20 mg daily, Toprol 25 mg daily, ramipril 10 mg twice daily and spironolactone 25 mg daily. Suspect some degree of overmedication causing syncopal episode on admission as noted above. Suspect Parkinson's disease may be contributing to lower blood pressures at baseline and thus patient may need less medication for heart failure moving forward. Patient notably had pacemaker battery changed out on 12/30 without issue, and pacemaker check on 01/15 was unremarkable. Will determine home-going regimen on discharge as noted above. Continue home aspirin and statin. 4. Parkinson's disease with acute on chronic debility ? PT/OT/case management following. Follows with outpatient neurology. Diagnosed about 17 years ago. Unable to find neurology notes in our system but patient is on carbidopa?levodopa 4 times daily and apparently had his dose increased somewhat recently due to worsening control of symptoms. Patient and family were working on getting home health care set up in outpatient setting, as is having more difficulty taking care of the patient at home. Therapy saw patient later this afternoon and patient with borderline therapy scores. Will discuss plan for either SNF versus home with home health care tomorrow with family. 5. Chronic anemia ? Hemoglobin stable at baseline of 10-11 during hospitalization. 6. BPH with obstructive symptoms ? Stable. Continue home finasteride and tamsulosin. DVT prophylaxis: Lovenox CODE STATUS: DNR CCA, DNI Expected disposition: Home with home health care versus SNF, 1 to 2 days Total clinical time spent by myself addressing the patient's medical issues, reviewing all the data, and collaborating with patient's care team: 35 minutes. Charges/Coding Visit Charges Inpatient E&M: 69705 Subs Hosp L2
[2024-01-20 20:48] VITALS: BP 106/67; PULSE 70; RESP 18; TEMP 36.6; O2SAT 99
[2024-01-20] MEDS: Atorvastatin Calcium 80 MG Tablet PO (20:53)
[2024-01-20] MEDS: Mirtazapine 30 MG Tablet PO (20:53)
[2024-01-21 02:49] VITALS: BP 101/61; PULSE 74; RESP 18; TEMP 36.9; O2SAT 97
[2024-01-21 06:00] VITALS: BMI 20.5
[2024-01-21] MEDS: Carbidopa/Levodopa 25/100 Tablet PO ×2 (06:09→10:45)
[2024-01-21] MEDS: Aspirin E.C. 81 MG Tablet PO (08:33)
[2024-01-21 08:37] VITALS: BP 95/52; PULSE 70; RESP 16; TEMP 36.7; O2SAT 96
[2024-01-21] MEDS: Enoxaparin 40 MG/0.4 ML Syringe SC (10:44)
[2024-01-21 10:45] VITALS: PULSE 70
[2024-01-21] MEDS: Ascorbic Acid 500 MG Tablet PO (10:45)
[2024-01-21] MEDS: Metoprolol(XL)Succ 25 MG Tablet PO (10:45)
[2024-01-21] MEDS: Tamsulosin HCl 0.4 MG Capsule PO (10:45)
[2024-01-21] MEDS: Finasteride 5 MG Tablet PO (10:46)
[2024-01-21] MEDS: Spironolactone 25 MG Tablet 12.5 MG PO (10:49)
--- NOTE | 2024-01-21 11:51 | CASEMGMT ---
Discharge Planning A list of?HH providers including quality and resource use data and consistent with the patient's preferred geographic region, medical needs, and insurance network was created in [employer] Guide.? This list was provided to the RN RAZA Mcneill
--- NOTE | 2024-01-21 12:25 | CASEMGMT ---
RAMIRO SULLIVAN into pt room. Pt resting in bed, family sitting at bedside. Reviewed palliative care and HHC with family. Provided list of local [facility] companies covered under pt insurance that was provided by Discharge Roll Examiner. Family requested to have pt set up with Palliative care referral and [facility]. Informed RAMIRO SULLIVAN of pt preference for referral to be made.
--- NOTE | 2024-01-21 13:15 | RAD_ITS ---
STUDY: X-RAY - LEFT KNEE REASON FOR EXAM: Male, 78 years old. Left knee pain after fall. TECHNIQUE: 2 view(s) of the knee. COMPARISON: None. FINDINGS: Osteopenia. Mild medial compartmental narrowing without osteophytes. Moderate narrowing of the lateral femorotibial compartment with osteophyte formation. Mild arthrosis of the patellofemoral compartment. Large joint effusion. Vascular calcification. Saphenous vein grafting clips. RAD/Knee 1 or 2 Views IMPRESSION: Osteopenia with tricompartmental arthrosis most marked laterally. Large joint effusion. Electronically Signed: Roger Campuzano MD at 13:28 EDT ,
--- NOTE | 2024-01-21 13:15 | RAD_ITS ---
STUDY: X-RAY - RIGHT ANKLE REASON FOR EXAM: Male, 78 years old. Persistent right ankle pain after fall. TECHNIQUE: 2 view(s) of the ankle. COMPARISON: None. FINDINGS: Osteopenia. Mild arthrosis of the tibiotalar joint. Mild arthrosis of the subtalar joint. Irregularity of the medial malleolus compatible with prior injury. Mild arthrosis of the midfoot. Normal soft tissues. RAD/Ankle 2 Views IMPRESSION: Osteopenia with osteoarthritic changes and irregularity of the medial malleolus. No acute finding. Electronically Signed: Roger Campuzano MD at 13:31 EDT ,
--- NOTE | 2024-01-21 13:18 | CASEMGMT ---
Discharge Planning Referral sent to [facility] via [facility]. Shweta Landa DC Planning Asst.
--- NOTE | 2024-01-21 14:24 | DCINST_ITS ---
Discharge Instructions Diet Discharge Diet: No restrictions Activity Discharge Activity: No Restrictions Follow Up Care Test Results: Test results from this visit will be discussed in further detail at your follow-up appointment, if applicable. Discharge Plan Admission Admit Date/Time: 01/19/24 14:11 Primary Reason for Your Visit: Episode of passing out Attending Provider: Nestor Leone Primary Care Provider: Juan Carlos Joel Consulting Providers: Noman Aldana Instructions Additional Instructions / Restrictions: Please take the lower doses of spironolactone and ramipril daily as noted below. Please take the low-dose Lasix once every other day as noted below. Stop taki ng the indapamide medication. Continue all other home medications as normal. You have bruising and swelling of the left knee likely due to falling when you passed out; you can use Tylenol, ice, heat and/or [id number] topical antiinflammatory medication to help with this. Home health care will also do therapy with you which will help your knee. Follow-up with your heart doctor in the office as previously scheduled. Discharge Orders/Prescriptions Prescriptions: New spironolactone 25 mg Tablet 12.5 mg PO DAILY 30 Days Qty: 15 2RF ramipril 1.25 mg Capsule 1.25 mg PO DAILY 30 Days Qty: 30 2RF furosemide [Lasix] 20 mg tablet 20 mg PO QODAY 30 Days Qty: 15 2RF Continued nitroglycerin 0.4 mg tablet, sublingual 0.4 mg SUBLINGUAL Q5M PRN (Reason: Chest Pain) Qty: 25 1RF ascorbic acid (vitamin C) 500 mg tablet 500 mg PO DAILY melatonin 10 mg tablet 10 mg PO HS PRN (Reason: insomnia) cholecalciferol (vitamin D3) 250 mcg (10,000 unit) capsule 250 mcg PO DAILY metoprolol succinate 50 mg tablet extended release 24 hr 25 mg PO DAILY tamsulosin 0.4 mg capsule 0.4 mg PO DAILY mirtazapine 30 mg tablet 30 mg PO DAILY finasteride 5 mg tablet 5 mg PO DAILY aspirin 81 MG tablet 81 mg PO DAILY@0800 carbidopa-levodopa 25-100 mg tablet 2 tab PO .qid Patient Comments: takes 2 tabs at 0900, 1300, 1700, 2100 atorvastatin 80 mg tablet 80 mg PO QHS albuterol sulfate 90 mcg/actuation HFA aerosol inhaler 2 puff INHALATION Q6H PRN (Reason: shortness of breath or wheezing) Qty: 6.7 0RF (DME) Handicap Placcard See Rx Instructions .Route .MEDSUPPLY Qty: 1 0RF Rx Instructions: Dx: Debility Exp: 07/2028 Discontinued ramipril 10 mg capsule 10 mg PO BID indapamide 1.25 mg tablet 1.25 mg PO QAM furosemide 40 mg tablet 20 mg PO DAILY Qty: 5 0RF spironolactone 25 mg tablet 25 mg PO DAILY Qty: 90 3RF Referrals / Follow Up: Juan Carlos Joel MD [Primary Care Provider] - Disposition Disposition (needs filled in before D/C Order can be placed): Home Health Service
--- NOTE | 2024-01-21 14:29 | DS.PCM_ITS ---
Providers Date of Admission: 01/19/24 Date of Discharge: 01/21/24 Primary Care Physician: Dr. Juan Carlos Joel MD Reason For Visit: SYNCOCPE Diagnosis Discharge Diagnosis (1) Syncope: Status: Acute Code(s): R55 - Syncope and collapse (2) Acute kidney injury: Status: Acute Code(s): N17.9 - Acute kidney failure, unspecified (3) Parkinson's disease: Status: Acute Code(s): G20.A1 - Parkinson's disease without dyskinesia, without mention of fluctuations (4) Debility: Status: Acute Code(s): R53.81 - Other malaise Medications at Discharge Home Medications aspirin 81 mg tablet,delayed release 81 mg PO DAILY@0800 heart health 04/21/13 nitroglycerin 0.4 mg sublingual tablet 0.4 mg sublingual Q5M PRN Chest Pain #25 tabs 06/12/19 albuterol sulfate 90 mcg/actuation aerosol inhaler 2 puff inhalation Q6H PRN shortness of breath or wheezing #6.7 grams 01/27/20 ascorbic acid (vitamin C) 500 mg tablet 500 mg PO DAILY supplement 10/31/20 melatonin 10 mg tablet 10 mg PO HS PRN insomnia 10/23/21 cholecalciferol (vitamin D3) 250 mcg (10,000 unit) capsule 250 mcg PO DAILY supplement 05/28/22 carbidopa 25 mg-levodopa 100 mg tablet 2 tab PO .qid parkinsons 06/25/23 metoprolol succinate 50 mg tablet,extended release 24 hr 25 mg PO DAILY heart/ blood pressure 06/25/23 Handicap Placcard #1 ea 07/25/23 finasteride 5 mg tablet 5 mg PO DAILY prostate health 12/19/23 mirtazapine 30 mg tablet 30 mg PO DAILY mood 12/19/23 tamsulosin 0.4 mg capsule 0.4 mg PO DAILY prostate 12/19/23 atorvastatin 80 mg tablet 80 mg PO QHS cholesterol 01/19/24 furosemide 20 mg tablet (Lasix) 20 mg PO QODAY 30 days #15 tabs 01/21/24 ramipril 1.25 mg capsule 1.25 mg PO DAILY 30 days #30 caps 01/21/24 spironolactone 25 mg tablet 12.5 mg (1/2 x 25 mg) PO DAILY 30 days #15 tabs 01/21/24 Hospital Course Operations None Procedures EKG and - (Chest x-ray, ankle x-ray, knee x-ray) Summary of Care Provided Minutes Spent on Discharge: 35 Hospital Course: Patient is an 78-year-old male who presented to [facility] ED on 01/18/2024 after a syncopal episode at home. Hospital course as noted below. Patient discharged home with home health care in stable condition on 01/20. 1. Syncopal episode with dehydration, improved ? 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 Home diuretics and blood pressure medications aside from Toprol held on admission and patient given 2 L of IV fluids with improvement in blood pressure and no further presyncopal symptoms. Blood pressure remained low normal through 01/19 without resumption of other home medications. Started ramipril 1.25 mg daily and spironolactone 12.5 mg daily on 01/20; patient had mild drop in blood pressure into the 90s systolic but otherwise tolerated these fine. Discharged on home Toprol, ramipril and spironolactone at reduced doses and Lasix 20 mg every other day. Recommended close outpatient follow-up with cardiology for further medication changes as needed. 2. CHRIS, improved ? Creatinine 1.83 on admit, improved to 1.22 on hospital day 2. Baseline creatinine appears to be around 1.0. Presumed prerenal CHRIS from dehydration from overmedication as noted above. Good urine output noted. No need to monitor further BMPs. 3. Chronic systolic CHF, history of CAD s/p stent placement, history of pacemaker placement, hypertension, hyperlipidemia ? Follows with [facility]. Last office visit was on 12/18. Most recent echo in 08/27 showed EF 30% with similar findings to prior echo from 2021. Home medication regimen on admit of Lasix 20 mg daily, Toprol 25 mg daily, ramipril 10 mg twice daily and spironolactone 25 mg daily. Suspect some degree of overmedication causing syncopal episode on admission as noted above. Suspect Parkinson's disease may be contributing to lower blood pressures at baseline and thus patient may need less medication for heart failure moving forward. Patient notably had pacemaker battery changed out on 12/30 without issue, and pacemaker check on 9/12 was unremarkable. Continued home aspirin and statin. New medication regimen on discharge of Toprol 25 mg daily, ramipril 1.25 mg daily, spironolactone 12.5 mg daily and Lasix 20 mg every other day. 4. Parkinson's disease with acute on chronic debility ? PT/OT/case management followed. Follows with outpatient neurology. Diagnosed about 17 years ago. Unable to find neurology notes in our system but patient is on carbidopa?levodopa 4 times daily and apparently had his dose increased somewhat recently due to worsening control of symptoms. Patient and family were working on getting home health care set up in outpatient setting, as is having more difficulty taking care of the patient at home. Patient had borderline therapy scores and discussed SNF versus home with home health care with them, and patient and family preferred home with home health care on discharge. Palliative care referral also placed on discharge per family request. 5. Chronic anemia ? Hemoglobin stable at baseline of 10-11 during hospitalization. 6. BPH with obstructive symptoms ? Stable. Continue home finasteride and tamsulosin. 7. Left knee pain ? Patient reported left knee pain and swelling near end of hospitalization that he noticed was worse when working with therapy. Left knee x-ray did show a large joint effusion with other findings consistent with OA. Exam notably with swelling but knee nontender to the touch and not hot or red. Suspect the joint effusion is due to generalized swelling after the fall that brought him into the hospital. No need for joint aspiration at this time, recommended conservative management on discharge. Total clinical time spent by myself addressing the patient's medical issues, reviewing all the data, and collaborating with patient's care team: 35 minutes. Physical Exam Const alert, oriented x3 and no apparent distress Constitutional Narrative: Elderly male, thin and chronically ill-appearing, mildly fatigued but otherwise answering questions appropriately and sitting uncomfortably in bed, in no acute distress. General Appearance: cooperative and comfortable HEENT normocephalic, head/scalp atraumatic, hearing grossly normal bilaterally, nasal mucous membranes and turbinates normal and moist oral mucous membranes Eyes PERRL, EOMs intact bilaterally and conjunctivae normal Neck full ROM Chest inspection of chest normal Resp normal respiratory effort, normal air movement, no use of accessory muscles and clear to auscultation bilaterally Cardio regular rate, regular rhythm, no murmurs and peripheral pulses 2+ throughout GI normal to inspection, nondistended, normoactive bowel sounds, soft to palpation, non-tender and non-distended Back/Spine normal ROM Extremity normal to inspection Extremity Narrative: Parkinson's tremor noted. Left knee swelling noted but the otherwise nontender with no erythema noted. Skin no rashes or lesions noted Neuro no sensory deficits noted Speech: speech normal Psych mental status grossly normal Psych Narrative: Flat affect. Medical Records Data Medical Nutrition Assessment Dietitian: Malnutrition Criteria Met Start: 01/19/24 10:15 Freq: Status: Active Protocol: Document 01/19/24 10:15 SLA (Rec: 01/19/24 10:15 SLA .[id number]) Nutrition Malnutrition Evidence of Malnutrition Exists Yes Evidenced By Suboptimal Energy Intake ( Severe),Weight Loss (Severe) Clinical Problem Acute Disease or Injury Related Malnutrition Etiology related to inadequate energy intake Signs/Symptoms as evidenced by pt meeting <75 % of est nutritional needs and has had 7.5% unintended wt loss x 2 wks. Status Active Problem Recommendation Dietitian Recommendations/Changes Continue Cardiac diet as ordered Rec pt have 2-3 bottles ensure at home for increased nutrition if consumed d/t sig wt loss and signs/symptoms of malnutrition. Weight / BMI Weight Weight: 64.8 kg Body Mass Index (BMI) 20.5 ABG / Lab / Microbiology Data 01/19/24 04:45 01/19/24 04:45 Radiography Diagnostic Testing: Radiology Impression Ankle X-Ray 01/21/24 13:15 IMPRESSION: Osteopenia with osteoarthritic changes and irregularity of the medial malleolus. No acute finding. Electronically Signed: Roger Campuzano MD at 13:31 EDT Reading Location ID and State: [facility] / [place] , Service support , Knee X-Ray 01/21/24 13:15 IMPRESSION: Osteopenia with tricompartmental arthrosis most marked laterally. Large joint effusion. Electronically Signed: Roger Campuzano MD at 13:28 EDT , D/C Instructions Discharge Diet: No restrictions Meaningful Use Info Meaningful Use Meaningful Use Diagnoses (Choose all that apply): None applicable Ischemic Stroke Statin Dosing Therapy Reference: STATIN DOSE THERAPY REFERENCE: * Patients > 75 years receive moderate or high dose statin therapy. * Patients 75 years or YOUNGER should receive HIGH intensity statin dose unless contraindicated. You will be required to document reason for non-treatment if statin daily dose does not meet guidelines. HIGH DOSE STATIN THERAPY DAILY Atorvastatin > than or = to 40 mg Rosuvastatin > than or = to 20 mg Amlodipine + Atorvastatin > than or = to 2.5/40 mg Ezetimibe + Simvastatin 10/80 mg Simvastatin 80mg Discharge Plan Admission Admit Date/Time: 01/19/24 14:11 Primary Reason for Your Visit: Episode of passing out Attending Provider: Nestor Leone Primary Care Provider: Juan Carlos Joel Consulting Providers: Noman Aldana Instructions Additional Instructions / Restrictions: Please take the lower doses of spironolactone and ramipril daily as noted below. Please take the low-dose Lasix once every other day as noted below. Stop taking the indapamide medication. Continue all other home medications as normal. You have bruising and swelling of the left knee likely due to falling when you passed out; you can use Tylenol, ice, heat and/or [id number] topical antiinflammatory medication to help with this. Home health care will also do therapy with you which will help your knee. Follow-up with your heart doctor in the office as previously scheduled. Discharge Orders/Prescriptions Prescriptions: New spironolactone 25 mg Tablet 12.5 mg PO DAILY 30 Days Qty: 15 2RF ramipril 1.25 mg Capsule 1.25 mg PO DAILY 30 Days Qty: 30 2RF furosemide [Lasix] 20 mg tablet 20 mg PO QODAY 30 Days Qty: 15 2RF Continued nitroglycerin 0.4 mg tablet, sublingual 0.4 mg SUBLINGUAL Q5M PRN (Reason: Chest Pain) Qty: 25 1RF ascorbic acid (vitamin C) 500 mg tablet 500 mg PO DAILY melatonin 10 mg tablet 10 mg PO HS PRN (Reason: insomnia) cholecalciferol (vitamin D3) 250 mcg (10,000 unit) capsule 250 mcg PO DAILY metoprolol succinate 50 mg tablet extended release 24 hr 25 mg PO DAILY tamsulosin 0.4 mg capsule 0.4 mg PO DAILY mirtazapine 30 mg tablet 30 mg PO DAILY finasteride 5 mg tablet 5 mg PO DAILY aspirin 81 MG tablet 81 mg PO DAILY@0800 carbidopa-levodopa 25-100 mg tablet 2 tab PO .qid Patient Comments: takes 2 tabs at 0900, 1300, 1700, 2100 atorvastatin 80 mg tablet 80 mg PO QHS albuterol sulfate 90 mcg/actuation HFA aerosol inhaler 2 puff INHALATION Q6H PRN (Reason: shortness of breath or wheezing) Qty: 6.7 0RF (DME) Handicap Placcard See Rx Instructions .Route .MEDSUPPLY Qty: 1 0RF Rx Instructions: Dx: Debility Exp: 07/2028 Discontinued ramipril 10 mg capsule 10 mg PO BID indapamide 1.25 mg tablet 1.25 mg PO QAM furosemide 40 mg tablet 20 mg PO DAILY Qty: 5 0RF spironolactone 25 mg tablet 25 mg PO DAILY Qty: 90 3RF Referrals / Follow Up: Juan Carlos Joel MD [Primary Care Provider] - Disposition Disposition (needs filled in before D/C Order can be placed): Home Health Service Charges/Coding Visit Charges Inpatient E&M: 46877 Disch Hosp >30min
[2024-01-21 14:33] VITALS: BP 83/45; PULSE 73; RESP 16; TEMP 36.8; O2SAT 99
--- NOTE | 2024-01-21 15:14 | CASEMGMT ---
Palliative screening tool completed and order received. RAMIRO SULLIVAN sent palliative referral to [facility]. Patient was accepted by [facility]. RAMIRO SULLIVAN called to update regarding C setup. had no further questions or concerns.
== END 2024-01-21 14:53 | disposition home health service (06) | DRG 312 ==
LOC: ED 18:46 → PCU 18:53
PROVIDERS: Admitting Provider Family Medicine; Emergency Provider Emergency Medicine; PCP Family Medicine; Visit Provider Hospitalist
DX: I95.2 Hypotension due to drugs (principal); E43 Unspecified severe protein-calorie malnutrition; N17.9 Acute kidney failure, unspecified; I47.10 Supraventricular tachycardia, unspecified; N13.8 Other obstructive and reflux uropathy; I50.22 Chronic systolic (congestive) heart failure; I11.0 Hypertensive heart disease with heart failure; D64.9 Anemia, unspecified; E78.2 Mixed hyperlipidemia; S80.02XA Contusion of left knee, initial encounter; G20.A1 Parkinson's disease without dyskinesia, without mention of fluctuations; E86.0 Dehydration; I25.5 Ischemic cardiomyopathy; I25.119 Atherosclerotic heart disease of native coronary artery with unspecified angina pectoris; W19.XXXA Unspecified fall, initial encounter; M17.12 Unilateral primary osteoarthritis, left knee; R55 Syncope and collapse; R53.81 Other malaise; T46.4X5A Adverse effect of angiotensin-converting-enzyme inhibitors, initial encounter; T50.0X5A Adverse effect of mineralocorticoids and their antagonists, initial encounter; T50.1X5A Adverse effect of loop [high-ceiling] diuretics, initial encounter; N40.1 Benign prostatic hyperplasia with lower urinary tract symptoms; Z68.20 Body mass index [BMI] 20.0-20.9, adult; Z95.1 Presence of aortocoronary bypass graft; Z95.0 Presence of cardiac pacemaker; Z79.82 Long term (current) use of aspirin; Z79.899 Other long term (current) drug therapy; Z96.641 Presence of right artificial hip joint
CPT/HCPCS: 36415; 71045; 73560; 73600; 80048; 81001; 83880; 84484; 85025; 85027; 93005; 97110; 97162; 97166; 97530; 97802; 99285; J7030; J7040; A4216

== ENCOUNTER → 2024-02-06 | Outpatient (CLI) | payer MEDICARE, SELFPAY ==
[2024-02-06 18:18] LABS: Anion Gap 6 (5-15); BUN 24 mg/dL (7-18); BUN/Creat Ratio 20.7 RATIO (10-20); Calcium,Total 9.6 mg/dL (8.5-10.1); Chloride 104 mmol/L (98-107); Creatinine, Serum 1.16 mg/dL (0.70-1.30); EST Glomerular Filtration Rate 64 mL/min (>60); Est Glom Filt Rate - Afr Amer 78 mL/min (>60); Glucose 106 mg/dL (74-106); Magnesium 2.3 mg/dL (1.6-2.6); Potassium 4.4 mmol/L (3.5-5.1); Sodium Level 135 mmol/L (136-145)
== END | disposition home or self-care (01) ==
LOC: MFPLAB 14:51
PROVIDERS: PCP Family Medicine; Referring Provider Family Medicine; Visit Provider Family Medicine
DX: I10 Essential (primary) hypertension (principal)
CPT/HCPCS: 36415; 80048; 83735

== ENCOUNTER 2024-04-26 14:26 | Inpatient (IN) | payer MEDICARE, SELFPAY ==
[2024-04-26] VITALS (19 sets, daily range): BP systolic 83–102; BP diastolic 55–70; PULSE 81–110; RESP 15–26; TEMP 37.2–39.4; O2SAT 86–100; BMI 20.8; BMI 20.1
--- NOTE | 2024-04-26 14:39 | EKG12_ITS ---
Test Reason : COMPLAINT Blood Pressure : */* mmHG Vent. Rate : 115 BPM Atrial Rate : 115 BPM P-R Int : * ms QRS Dur : 188 ms QT Int : 406 ms P-R-T Axes : 89 246 66 degrees QTcB Int : 561 ms Ventricular-paced rhythm Abnormal ECG 55 bpm Confirmed by NORMA PEREZ, ALY ([id number]), assistant film editor VIOLETA EDUARDO ([id number]) on 04/27/2024 8:24:05 AM Referred By: Confirmed By: ALY GREEN MD
[2024-04-26] MEDS: Acetaminophen 500 MG Tablet 1000 MG PO (14:47)
--- NOTE | 2024-04-26 14:47 | EX.ED.DYSGE1 ---
HPI <ASHLEY Lopez - Last Filed: 04/26/24 16:38> History of Present Illness Chief Complaint: Complaint Narrative Narrative: Patient is an 78-year-old male who prior to arrival was currently on hospice for Parkinson's disease, ischemic cardiomyopathy, he does live at home. Hospice sees him once a week. Per the who is his POA, patient developed some blood in his urine, was more unresponsive and weak. On arrival here, she would like to revoke the hospice. Patient arrives via ambulance. 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) Parkinson's disease Mixed hyperlipidemia Abnormal echocardiogram Nonrheumatic mitral (valve) prolapse Presence of stent in coronary artery (~03/21/10) Essential hypertension Paroxysmal supraventricular tachycardia Chest discomfort Fatigue Angina pectoris Atherosclerotic heart disease of habematolel coronary artery without angina pectoris Ischemic cardiomyopathy Left bundle branch block Chronic systolic heart failure 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 Abnormal electrocardiogram Nonspecific abnormal unspecified cardiovascular function study Paroxysmal supraventricular tachycardia by electrocardiogram (ECG) Home Medications ?Medication ?Instructions ?Recorded ?Last Taken ?Type aspirin 81 mg tablet,delayed 81 mg PO DAILY@0800 heart health 04/21/13 12/30/23 History release nitroglycerin 0.4 mg sublingual 0.4 mg sublingual Q5M PRN Chest 06/12/19 Unknown Rx tablet Pain #25 tabs albuterol sulfate 90 mcg/actuation 2 puff inhalation Q6H PRN 01/27/20 Unknown Rx aerosol inhaler shortness of breath or wheezing #6.7 grams ascorbic acid (vitamin C) 500 mg 500 mg PO DAILY supplement 10/31/20 Unknown History tablet melatonin 10 mg tablet 10 mg PO HS PRN insomnia 10/23/21 Unknown History cholecalciferol (vitamin D3) 250 250 mcg PO DAILY supplement 05/28/22 Unknown History mcg (10,000 unit) capsule carbidopa 25 mg-levodopa 100 mg 2 tab PO 4X/DAY parkinsons 06/25/23 01/18/24 17:00 History tablet 2 tabs metoprolol succinate 50 mg 25 mg PO DAILY heart/ blood 06/25/23 12/31/23 History tablet,extended release 24 hr pressure Handicap Placcard #1 ea 07/25/23 Unknown Rx finasteride 5 mg tablet 5 mg PO DAILY prostate health 12/19/23 12/31/23 History mirtazapine 30 mg tablet 30 mg PO DAILY mood 12/19/23 Unknown History tamsulosin 0.4 mg capsule 0.4 mg PO DAILY prostate 12/19/23 Unknown History atorvastatin 80 mg tablet 80 mg PO QHS cholesterol 01/19/24 Unknown History ramipril 1.25 mg capsule 1.25 mg PO DAILY 30 days #30 caps 01/21/24 Unknown Rx spironolactone 25 mg tablet 12.5 mg (1/2 x 25 mg) PO DAILY 30 01/21/24 Unknown Rx days #15 tabs acetaminophen 500 mg capsule 1,000 mg PO Q8H PRN pain 04/26/24 Unknown History furosemide 20 mg tablet (Lasix) 20 mg PO SUTUTH 04/26/24 Unknown History indapamide 1.25 mg tablet 1.25 mg PO MOWEFR 04/26/24 Unknown History lorazepam 0.5 mg tablet (Ativan) 0.5 mg PO 4X/DAY 04/26/24 Unknown History magnesium hydroxide 400 mg/5 mL 30 ml PO Q6H PRN constipation 04/26/24 Unknown History oral suspension (Milk of Magnesia) sennosides 8.6 mg-docusate sodium 2 tab-cap PO BID 04/26/24 Unknown History 50 mg capsule (Senna Plus) Allergy/AdvReac Type Severity Reaction Status Date / Time adhesive tape Allergy NEEDS Verified 04/26/24 14:31 FOLLOW-UP Family History Mother Hypertension Father COPD (chronic obstructive pulmonary disease) CAD (coronary artery disease) Hx CABG CVA (cerebral vascular accident) Brother CAD (coronary artery disease) Diabetes Hypertension Sister Hypertension Son HLD (hyperlipidemia) Other Heart disease Surgical History History of open reduction and internal fixation (ORIF) procedure (~1979) History of bilateral inguinal hernia repair History of right hip replacement History of percutaneous transluminal coronary angioplasty (~03/21/10) S/P implantation of automatic cardioverter/defibrillator (AICD) Aortocoronary bypass status (~01/23/95) Social History Smoking Status: Never smoker alcohol intake: never substance use type: does not use caffeine: Yes Type: carbonated beverages Number of servings: 1 what type of physical activity do you participate in: none seatbelt use: always do you feel safe at home: Yes ROS <ASHLEY Lopez - Last Filed: 04/26/24 16:38> ROS ED ROS Narrative Constitutional: Negative for weight loss. Positive for fever, chills, weight loss Eyes: Negative for vision loss, vision change, double vision ENT: Negative for any sore throat, ear pain, congestion Cardiovascular: Negative for any chest pain, tightness, palpitations Respiratory: Negative for any cough, sputum production, hemoptysis, dyspnea, dyspnea on exertion, orthopnea Gastrointestinal: Negative for any abdominal pain, nausea, vomiting, diarrhea, constipation, blood in stool, blood in vomit : Negative for any urinary frequency, dysuria, retention. Positive blood in the urine Muscle skeletal: Negative for any neck pain, back pain Neurological: Negative for any headache, syncope, dizziness Skin: Negative for any rashes, itching, abrasions, lacerations Psychiatric: Negative for any depression, anxiety, stress, suicidal ideation, homicidal ideation Hematologic: Negative for any excessive bruising, easy bleeding EXAM <ASHLEY Lopez - Last Filed: 04/26/24 16:38> Physical Exam Narrative Exam Narrative: Vital signs reviewed. Patient is alert, his does answer most the questions. Patient is tachycardic, tachypneic, febrile. HEET: Head normocephalic atraumatic, TMs clear bilaterally. Posterior pharynx is clear, dry mucous membranes. Nares clear bilaterally. Neck: Supple with no lymphadenopathy or tenderness. No signs of meningismus. Cardiac: Regular rate and rhythm no murmurs gallops or rubs, equal peripheral pulses bilaterally. Respiratory: Lungs clear to auscultation bilaterally, diminished lung sounds of both bases. No chest tenderness. Abdomen: Soft, nontender, nondistended. No abdominal bruit or pulsatile masses. No hepatosplenomegaly Extremities: No peripheral edema, no signs of gross trauma or deformity. Active full range of motion of all extremities. Neuro: Cranial nerves II through XII intact, no focal neurological deficits. Skin: Clean dry and intact with no rash, purpura, petechiae, vesicles or pustules. Skin is warm to the touch Backs/flank: No CVA tenderness, no midline spinal tenderness, no deformity. Psych: Normal mood and affect. No SI, HI or acute psychosis. Genitalia: Patient does have some emma blood at the penile meatus. Patient has no abdominal pain. Const Vital Signs: 04/26/24 14:27 04/26/24 14:31 04/26/24 15:09 Temperature 102.9 F H 102.9 F H Temperature Source Axillary Temporal Pulse Rate 109 H 108 H Respiratory Rate 24 H 26 H Blood Pressure 100/68 90/63 Blood Pressure Mean 78 72 Pulse Ox 86 99 98 Oxygen Delivery Method Room Air Nasal Cannula Nasal Cannula Oxygen Flow Rate (L/min) 2 2 04/26/24 15:31 04/26/24 16:00 04/26/24 16:23 Temperature 102.7 F H 102.5 F H 102 F H Temperature Source Core Core Core Pulse Rate 110 H 105 H 105 H Respiratory Rate 23 H 19 H 20 H Blood Pressure 96/62 95/58 L 86/57 L Blood Pressure Mean 73 69 66 Pulse Ox 100 100 98 Oxygen Delivery Method Nasal Cannula Nasal Cannula Oxygen Flow Rate (L/min) 2 2 04/26/24 16:24 Temperature 102 F H Temperature Source Pulse Rate 105 H Respiratory Rate 20 H Blood Pressure 86/57 L Blood Pressure Mean 66 Pulse Ox 98 Oxygen Delivery Method Oxygen Flow Rate (L/min) Positive cachectic General Appearance ED: cachectic Nutritional Appearance: cachectic <Dr. Wilmer Gutierrez, DO - Last Filed: 04/26/24 16:40> Physical Exam Const Vital Signs: 04/26/24 14:27 04/26/24 14:31 04/26/24 15:09 Temperature 102.9 F H 102.9 F H Temperature Source Axillary Temporal Pulse Rate 109 H 108 H Respiratory Rate 24 H 26 H Blood Pressure 100/68 90/63 Blood Pressure Mean 78 72 Pulse Ox 86 99 98 Oxygen Delivery Method Room Air Nasal Cannula Nasal Cannula Oxygen Flow Rate (L/min) 2 2 04/26/24 15:31 04/26/24 16:00 04/26/24 16:23 Temperature 102.7 F H 102.5 F H 102 F H Temperature Source Core Core Core Pulse Rate 110 H 105 H 105 H Respiratory Rate 23 H 19 H 20 H Blood Pressure 96/62 95/58 L 86/57 L Blood Pressure Mean 73 69 66 Pulse Ox 100 100 98 Oxygen Delivery Method Nasal Cannula Nasal Cannula Oxygen Flow Rate (L/min) 2 2 04/26/24 16:24 Temperature 102 F H Temperature Source Pulse Rate 105 H Respiratory Rate 20 H Blood Pressure 86/57 L Blood Pressure Mean 66 Pulse Ox 98 Oxygen Delivery Method Oxygen Flow Rate (L/min) [facility] <ASHLEY Lopez - Last Filed: 04/26/24 16:38> [facility] Lab Data Labs: Laboratory Results - last 24 hr 04/26/24 04/26/24 14:44 15:09 WBC 6.4 RBC 3.96 L Hgb 12.5 L Hct 37.9 L MCV 95.7 H MCH 31.6 MCHC 33.0 RDW Std Deviation 47.1 H RDW Coeff of Patricia 13.2 Plt Count 173 MPV 9.1 Immature Gran % (Auto) 0.500 Neut % (Auto) 97.0 H Lymph % (Auto) 1.7 L Chester % (Auto) 0.3 Eos % (Auto) 0.2 Baso % (Auto) 0.3 Absolute Neuts (auto) 6.2 Absolute Lymphs (auto) 0.11 L Nucleated RBC % 0 PT 14.4 INR 1.1 APTT 27.0 Sodium 140 Potassium 3.5 Chloride 107 Carbon Dioxide 24.0 Anion Gap 9 BUN 23 H Creatinine 1.38 H Estim Creat Clear Calc 39.86 Est GFR (MDRD) Af Amer 64 Est GFR (MDRD) Non-Af 53 L BUN/Creatinine Ratio 16.7 Glucose 138 H Lactic Acid 5.0 H* Calcium 9.2 Total Bilirubin 0.70 AST 28 ALT 49 Alkaline Phosphatase 106 Total Protein 6.3 L Albumin 3.2 Globulin 3.1 Albumin/Globulin Ratio 1.0 Urine Color Yellow Urine Clarity Sl. Cloudy Urine pH 6.0 Ur Specific [place] 1.010 Urine Protein 15 H Urine Glucose (UA) Normal Urine Ketones Negative Urine Occult Blood 25 H Urine Nitrite Negative Urine Bilirubin Negative Urine Urobilinogen Normal Ur Leukocyte Esterase 500 H Urine RBC 0-5 SEEN Urine WBC 50-100 SEEN Ur Squamous Epith Cells 0 SEEN Urine Bacteria 3+ Urine Mucus 0 SEEN Radiography Diagnostic Testing: Clinical Impression(s) from Imaging Studies Abdomen/Pelvis CT 04/26/24 14:51 IMPRESSION: Nonspecific perinephric fluid collection which may be related to remote trauma. Sheehan catheter in place within a thick-walled urinary bladder. Findings may be related to cystitis. Question rectal impaction. Electronically Signed: Justice Connolly MD at 16:15 EST , Chest X-Ray 04/26/24 15:11 IMPRESSION: 1. Hyperinflation of the lungs and perhaps mild interstitial prominence without focal airspace disease likely indicative of COPD. 2. Status post CABG. No cardiomegaly. Electronically Signed: Timoteo Hernandez DO at 15:23 EST , EKG EKG shows a ventricular paced rhythm: Attestation: I personally reviewed and interpreted this EKG as follows: Comments: EKG shows a ventricular paced rhythm, rate 115 bpm, QRS duration 88 ms, no acute ST elevation, no acute infarct noted. Treatment and Re-Evaluation :: Differential diagnosis includes however is not limited to: Sepsis, UTI leading to sepsis, obstructing uropathy, COVID-19 influenza RSV, community-acquired pneumonia, obstructing uropathy, infected kidney stone Patient is tachypneic, tachycardic, febrile, weak and altered. Patient will receive a full septic workup including 2 sets of blood cultures, 30 cc/kg bolus will be ordered, this is roughly 2000 cc. Patient be given oral Tylenol. Patient will receive laboratory values including lactic acid, two-view chest x-ray, CT scan of the abdomen pelvis. Indwelling Sheehan will be inserted. COVID-19 influenza RSV swab will be obtained. Patient will need to be admitted to the hospital. Currently looking for a source of the fever. All radiologic examinations were read, reviewed by the emergency department attending. From these reads, a plan of care will be put in place. I spoke with the patient's at length, she wants to revoke hospice, patient states I want him to get better. Patient's COVID-19 and flu Shila RSV was negative. Urinalysis was positive for infection with 3+ bacteria 50-100 white blood cells, 500 leukocytes. This was sent for culture, IV Zosyn given. Patient's chest x-ray was negative for any acute process. Laboratory values shows a normal CBC, slight anemia with a hemoglobin of 12.5, patient's PT/INR within normal limits, patient's creatinine 1.38, patient is at his baseline. Lactic acid was 5.0, patient does flag sepsis. Patient was given 30 cc/kg IV fluids, IV Zosyn, 2 sets of blood cultures. Patient will receive a CT scan of the abdomen pelvis, patient will then be admitted to the hospital. Patient's CT scan of the abdomen pelvis shows nonspecific perinephric fluid collection which may be related to remote trauma however patient had no fall. Patient is Sheehan catheter in place within the thick-walled urinary bladder, right suggestive of cystitis. Questionable rectal impaction. At this time, patient blood pressure still slight low at 86/57, patient receive another liter of fluid. Patient was given IV fluids, reach out to the hospitalist. <Dr. Wilmer Gutierrez, DO - Last Filed: 04/26/24 16:40> [facility] MDM Narrative Medical decision making narrative: Supervisory Physician Note Patient was seen and examined with the Advanced Practice Provider. Nursing notes and vital signs have been reviewed. Pertinent old records have been reviewed. I agree with the essential elements of the OLE's history, physical exam, assessment, and plan. The differential diagnosis and management options were discussed with the OLE. I participated in determining and agree with the management, procedures, final impression and disposition as documented. See changes noted by me. Please see addendum or separate note for any additional details. 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 Associated symptom is weakness and general malaise. Patient is currently on hospice. is POA and as well as patient want to revoke their hospice for treatment. He denies any URI symptoms, cough, shortness of breath, chest pain, abdominal pain, nausea, vomiting. Physical exam: Gen: Alert, NAD Head: Normocephalic, atraumatic Eyes: No sclera icterus, conjunctiva clear ENT: Dry mucous membranes Neck: Trachea midline, No JVD CV: RRR, no murmurs, no peripheral edema Resp: Lungs CTA BL, no w/r/c GI: Abd soft, non-distended, non-tender, no r/r/g : No CVA tenderness. Normal external genitalia. Sheehan catheter currently in place with clear urine in the bag. Musc: Moves all extremities, no deformity Skin: Warm, dry Neuro: Alert, oriented, grossly intact, sensation intact Psych: Cooperative, appropriate mood and affect On presentation, patient is tachycardic, tachypneic, and febrile. No hypotension. Patient meets sepsis criteria. 30 cc/kg bolus ordered including Tylenol for fever. Patient given Zosyn prophylactically for suspected possible UTI. Sepsis workup ordered. Sheehan catheter was inserted by our team. EKG and chest x-ray interpreted by me, EM physician. EKG shows ventricular paced rhythm with a heart rate of 115. No acute ischemic changes. Chest x-ray without pneumonia, effusion, pneumothorax, cardiomegaly. CBC without leukocytosis. Has baseline anemia. Coagulation panel unremarkable. CMP shows renal insufficiency with a creatinine of 1.38. No transaminitis. Lactic acid elevated at 5. Patient already receiving 30 cc/kg bolus. UA positive for UTI. Patient already received Zosyn. Urine culture sent. COVID, flu, RSV negative. CT abdomen pelvis shows nonspecific perinephritic fluid collection which may be related to remote trauma. Patient denies any trauma. Findings show a thickened bladder which is consistent with his UTI. Patient will warrant admission for his sepsis secondary to UTI. Patient was admitted to the ICU by Dr. Wisdom. 30 minutes of critical care time utilized in managing the patient. This is due to high probability of and deterioration of the patient based on the patient's condition and excludes any separately billable procedures. Impression: 1. Sepsis secondary to UTI 2. Chronic anemia 3. Renal insufficiency 4. Lactic acidosis secondary to #1 Lab Data Labs: Laboratory Results - last 24 hr 04/26/24 04/26/24 14:44 15:09 WBC 6.4 RBC 3.96 L Hgb 12.5 L Hct 37.9 L MCV 95.7 H MCH 31.6 MCHC 33.0 RDW Std Deviation 47.1 H RDW Coeff of Patricia 13.2 Plt Count 173 MPV 9.1 Immature Gran % (Auto) 0.500 Neut % (Auto) 97.0 H Lymph % (Auto) 1.7 L [place] % (Auto) 0.3 Eos % (Auto) 0.2 Baso % (Auto) 0.3 Absolute Neuts (auto) 6.2 Absolute Lymphs (auto) 0.11 L Nucleated RBC % 0 PT 14.4 INR 1.1 APTT 27.0 Sodium 140 Potassium 3.5 Chloride 107 Carbon Dioxide 24.0 Anion Gap 9 BUN 23 H Creatinine 1.38 H Estim Creat Clear Calc 39.86 Est GFR (MDRD) Af Amer 64 Est GFR (MDRD) Non-Af 53 L BUN/Creatinine Ratio 16.7 Glucose 138 H Lactic Acid 5.0 H* Calcium 9.2 Total Bilirubin 0.70 AST 28 ALT 49 Alkaline Phosphatase 106 Total Protein 6.3 L Albumin 3.2 Globulin 3.1 Albumin/Globulin Ratio 1.0 Urine Color Yellow Urine Clarity Sl. Cloudy Urine pH 6.0 Ur Specific [place] 1.010 Urine Protein 15 H Urine Glucose (UA) Normal Urine Ketones Negative Urine Occult Blood 25 H Urine Nitrite Negative Urine Bilirubin Negative Urine Urobilinogen Normal Ur Leukocyte Esterase 500 H Urine RBC 0-5 SEEN Urine WBC 50-100 SEEN Ur Squamous Epith Cells 0 SEEN Urine Bacteria 3+ Urine Mucus 0 SEEN Radiography Diagnostic Testing: Clinical Impression(s) from Imaging Studies Abdomen/Pelvis CT 04/26/24 14:51 IMPRESSION: Nonspecific perinephric fluid collection which may be related to remote trauma. Sheehan catheter in place within a thick-walled urinary bladder. Findings may be related to cystitis. Question rectal impaction. Electronically Signed: Justice Connolly MD at 16:15 EST , Chest X-Ray 04/26/24 15:11 IMPRESSION: 1. Hyperinflation of the lungs and perhaps mild interstitial prominence without focal airspace disease likely indicative of COPD. 2. Status post CABG. No cardiomegaly. Electronically Signed: Timoteo Hernandez, at 15:23 EST , Discharge Plan Triage Chief Complaint: Complaint ED Midlevel Provider: Aaron Yeung ED Provider: Wilmer Gutierrez Dx/Rx/DC Orders Clinical Impression: Sepsis, Acute UTI, Acute metabolic encephalopathy, Acidosis, lactic Prescriptions: No Action nitroglycerin 0.4 mg tablet, sublingual 0.4 mg SUBLINGUAL Q5M PRN (Reason: Chest Pain) Qty: 25 1RF ascorbic acid (vitamin C) 500 mg tablet 500 mg PO DAILY melatonin 10 mg tablet 10 mg PO HS PRN (Reason: insomnia) cholecalciferol (vitamin D3) 250 mcg (10,000 unit) capsule 250 mcg PO DAILY metoprolol succinate 50 mg tablet extended release 24 hr 25 mg PO DAILY tamsulosin 0.4 mg capsule 0.4 mg PO DAILY mirtazapine 30 mg tablet 30 mg PO DAILY finasteride 5 mg tablet 5 mg PO DAILY aspirin 81 MG tablet 81 mg PO DAILY@0800 carbidopa-levodopa 25-100 mg tablet 2 tab PO 4X/DAY Patient Comments: takes 2 tabs at 0900, 1300, 1700, 2100 atorvastatin 80 mg tablet 80 mg PO QHS spironolactone 25 mg Tablet 12.5 mg PO DAILY 30 Days Qty: 15 2RF ramipril 1.25 mg Capsule 1.25 mg PO DAILY 30 Days Qty: 30 2RF Senna Plus 8.6-50 mg capsule 2 tab-cap PO BID indapamide 1.25 mg tablet 1.25 mg PO MOWEFR lorazepam [Ativan] 0.5 mg tablet 0.5 mg PO 4X/DAY acetaminophen 500 mg capsule 1,000 mg PO Q8H PRN (Reason: pain) magnesium hydroxide [Milk of Magnesia] 400 mg/5 mL suspension 30 ml PO Q6H PRN (Reason: constipation) furosemide [Lasix] 20 mg tablet 20 mg PO SUTUTH albuterol sulfate 90 mcg/actuation HFA aerosol inhaler 2 puff INHALATION Q6H PRN (Reason: shortness of breath or wheezing) Qty: 6.7 0RF (DME) Handicap Placcard See Rx Instructions .Route .MEDSUPPLY Qty: 1 0RF Rx Instructions: Dx: Debility Exp: 07/2028 Primary Care Provider: Juan Carlos Joel Referrals: Juan Carlos Joel MD [Primary Care Provider] - Print Language: Wolof
[2024-04-26] MEDS: 0.9% Normal Saline (1000mL) 1,000 ML 999 ML IV ×3 (14:49→16:56)
--- NOTE | 2024-04-26 14:51 | CT_ITS ---
EXAM: CT ABDOMEN AND PELVIS WITH INTRAVENOUS CONTRAST CLINICAL INDICATION: hematuria TECHNIQUE: Helically acquired images were obtained of the abdomen and pelvis with intravenous contrast. This CT exam was performed using one or more of the following dose reduction techniques: automated exposure control, adjustment of the mA and/or kV according to patient size, and/or use of iterative reconstruction technique. CONTRAST: IV 100mL [id number] COMPARISON: No relevant prior studies available. FINDINGS: LOWER THORAX: Mild bibasilar atelectasis. Mild cardiomegaly. ABDOMEN: LIVER: Normal. Homogeneous. No focal mass. GALLBLADDER AND BILE DUCTS: Normal. No calcified gallstones. No gallbladder distention or wall edema. No intra- or extrahepatic biliary ductal dilation. PANCREAS: Normal. No focal cystic or solid mass. SPLEEN: Spleen is top normal size. Small lateral perisplenic fluid collection noted. Small peripheral cyst within the spleen. ADRENALS: Normal. No nodules. KIDNEYS AND URETERS: Normal. Normal renal size and position. No hydronephrosis. STOMACH AND BOWEL: Prominent fecal distention of the rectum raises possibility of impaction. No focal inflammatory change. PELVIS: APPENDIX: No evidence of acute appendicitis. BLADDER: Sheehan catheter in place within a thick-walled urinary bladder. REPRODUCTIVE: Unremarkable as visualized. No mass. ABDOMEN and PELVIS: INTRAPERITONEAL SPACE: No free peritoneal fluid. No free air. BONES/JOINTS: Right hip prosthesis in place. Prominent degenerative changes are noted within the spine. SOFT TISSUES: Soft tissue thickening along the right inguinal canal associated with multiple surgical clips which may represent postoperative seroma related to herniorrhaphy. No discrete abdominal or pelvic wall hernia. VASCULATURE: Normal. Abdominal aorta is non-dilated. LYMPH NODES: Normal. No enlarged lymph nodes. CT/Abdomen/Pelvis W IV Cont ONLY IMPRESSION: Nonspecific perinephric fluid collection which may be related to remote trauma. Sheehan catheter in place within a thick-walled urinary bladder. Findings may be related to cystitis. Question rectal impaction. Electronically Signed: Justice Connolly MD at 16:15 EST ,
[2024-04-26 15:01] LABS: Absolute Lymphocyte Count 0.11 X10^3/uL (0.83-4.51); Absolute Neutrophil Count 6.2 X10^3/uL (2.0-7.7); Basophil# 0.02 X10^3/uL; Basophil% 0.3 % (0-1); Eosinophil# 0.01 X10^3/uL; Eosinophils% 0.2 % (0-5); Hematocrit 37.9 % (40-54); Hemoglobin 12.5 g/dL (13.0-16.5); Lymphocyte # 0.11 X10^3/ul (0.83-4.51); Lymphocyte % 1.7 % (19-41); Mean Corpuscular Hgb 31.6 pg (27.0-32.0); Mean Corpuscular Volume 95.7 fL (80-94); Mean Platelet Vol. 9.1 fl (6.2-12.0); Monocyte# 0.02 X10^3/uL; Monocyte% 0.3 % (0-10); NRBC Flagged by Analyzer 0 % (0-5); Neutrophil # 6.22 X10^3/uL (2.7-7.7); POSITIVE DIFFERENTIAL YES; Platelet Count 173 K/mm3 (150-450); RBC Distribution Width CV 13.2 % (11.6-14.6); RBC Distribution Width SD 47.1 fl (35.1-43.9); Red Blood Count 3.96 M/mm3 (4.6-6.2); White Blood Count 6.4 K/mm3 (4.4-11.0)
[2024-04-26 15:10] LABS: Mucous, Urine 0 SEEN /hpf (<or=2+); Squamous Epithelial Cells - UA 0 SEEN /hpf (0-5)
--- NOTE | 2024-04-26 15:11 | RAD_ITS ---
EXAM: XR CHEST, 1 VIEW CLINICAL INDICATION: cough TECHNIQUE: Frontal view of the chest. COMPARISON: 01/18/2024 FINDINGS: LUNGS AND PLEURAL SPACES: Hyperinflation of the lungs and perhaps mild interstitial prominence without focal airspace disease likely indicative of COPD. No pneumothorax. No effusion. HEART: Status post CABG. No cardiomegaly. MEDIASTINUM: Central airways and mediastinal contour are unremarkable. BONES/JOINTS: Median sternotomy. No acute fracture. SOFT TISSUES: No significant abnormality. TUBES, LINES AND DEVICES: Left-sided cardiac device. RAD/Chest 1 View (Portable) IMPRESSION: 1. Hyperinflation of the lungs and perhaps mild interstitial prominence without focal airspace disease likely indicative of COPD. 2. Status post CABG. No cardiomegaly. Electronically Signed: Timoteo Hernandez DO at 15:23 EST ,
[2024-04-26] MEDS: Piperacil/Tazobactam 3.375 GM in 0.9% Normal Saline (50mL MB+) 50 ML IV (15:17)
[2024-04-26 15:20] LABS: AST(SGOT) 28 U/L (15-37); Alanine Aminotransfer ALT/SGPT 49 U/L (16-61); Albumin, Serum 3.2 g/dL (3.2-5.0); Alkaline Phosphatase 106 U/L (45-117); Anion Gap 9 (5-15); BUN 23 mg/dL (7-18); BUN/Creat Ratio 16.7 RATIO (10-20); Calcium,Total 9.2 mg/dL (8.5-10.1); Chloride 107 mmol/L (98-107); Creatinine, Serum 1.38 mg/dL (0.70-1.30); EST Glomerular Filtration Rate 53 mL/min (>60); Est Glom Filt Rate - Afr Amer 64 mL/min (>60); Estimated Creatinine Clearance 39.86 ml/min; Globulin 3.1 g/dL (2.2-4.2); Glucose 138 mg/dL (74-106); Potassium 3.5 mmol/L (3.5-5.1); Protein, Total 6.3 g/dL (6.4-8.2); Sodium Level 140 mmol/L (136-145)
[2024-04-26 15:21] LABS: Color, Urine Yellow (Yellow); Glucose, Dipstick Normal (Normal); Ketone-Dipstick Negative (Negative); Leukocyte Esterase-Dipstick 500 /ul (Negative); Nitrite-Dipstick Negative (Negative); Occult Blood-Urine 25 /ul (Negative); Protein-Dipstick 15 mg/dl (Negative); Urine Bilirubin Dipstick Negative (Negative); Urine Clarity Sl. Cloudy (Clear); Urine Urobilinogen Normal (Normal)
[2024-04-26 15:33] LABS: International Normalized Ratio 1.1; Prothrombin Time (Protime)PT. 14.4 SECONDS (11.7-14.9)
[2024-04-26 15:45] LABS: Bacteria 3+ /hpf (None Seen); White Blood Cells 50-100 SEEN /hpf (0-5)
[2024-04-26 15:46] LABS: Red Blood Cells-Urine 0-5 SEEN /hpf (0-5)
--- NOTE | 2024-04-26 16:31 | HP.PCM.HOS_ITS ---
HPI - General General Date of Admission: 04/26/24 Date of Service: 04/26/24 Chief Complaint: Decreased responsiveness, weakness. HPI Narrative The patient is an 78 y/o M w/ PMHx: Parkinson's disease, CAD/ischemic cardiomyopathy s/p CABG 1994 and PCI 2009, HTN, HLD, PSVT s/p AICD/cardiac resynchronization therapy pacemaker, HFrEF, BPH with obstructive pathology, Anxiety and Depression, Chronic anemia, CKD stage II per GFR trending who presents to the [facility] ED on 04/26/24 with history of hematuria with decreased responsiveness and worsening weakness prompting to bring patient into the ED for further evaluation. Patient is on hospice currently for Parkinson disease and significant underlying cardiac disease living at home with his spouse with hospice seeing him once weekly. Workup in the ED included T102.9, heart rate 109, BP 100/68, respiratory rate 24, initially 86% on room air improving to 99% on 2 L nasal cannula, CBC with WBC 6.4, hemoglobin 12.5, MCV 95.7, platelet 173 without marked shift with lymphopenia, unremarkable coags, CMP with BUN/creatinine 23/1.38, GFR 53, glucose 138, lactic acid 5.0, hepatic profile otherwise unremarkable, urinalysis with cloudy appearing urine, protein 15, occult blood 25, leukocyte esterase 500 with urine WBCs 50-100 with 3+ urine bacteria, blood culture x 2 pending per ED, urine culture pending per ED, rapid SARS COVID/influenza/RSV PCR negative, chest x-ray with hyperinflation of the lungs and perhaps mild interstitial prominence without any focal airspace disease likely indicated for COPD, no evidence of cardiomegaly, status post CABG evident, CT abdomen pelvis with IV contrast with nonspecific perinephric fluid collection possibly related to remote trauma, Sheehan catheter in place with a thick walled urinary bladder consistent with cystitis, questionable rectal impaction. In the ED patient initiated on 2 L normal saline (30 cc/kg IVF bolus per sepsis protocol), Tylenol 1000 mg p.o. x 1 and IV Zosyn. Review of patient's previous microbiology history with no additional cultures beyond today. 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) Parkinson's disease Mixed hyperlipidemia Abnormal echocardiogram Nonrheumatic mitral (valve) prolapse Presence of stent in coronary artery (~03/21/10) Essential hypertension Paroxysmal supraventricular tachycardia Chest discomfort Fatigue Angina pectoris Atherosclerotic heart disease of chilkoot coronary artery without angina pectoris Ischemic cardiomyopathy Left bundle branch block Chronic systolic heart failure Murmur intermission coordinator use of drug Abnormal electrocardiogram Nonspecific abnormal unspecified cardiovascular function study Paroxysmal supraventricular tachycardia by electrocardiogram (ECG) Home Medications ?Medication ?Instructions ?Recorded ?Last Taken ?Type aspirin 81 mg tablet,delayed 81 mg PO DAILY@0800 heart health 04/21/13 12/30/23 History release nitroglycerin 0.4 mg sublingual 0.4 mg sublingual Q5M PRN Chest 06/12/19 Unknown Rx tablet Pain #25 tabs albuterol sulfate 90 mcg/actuation 2 puff inhalation Q6H PRN 01/27/20 Unknown Rx aerosol inhaler shortness of breath or wheezing #6.7 grams carbidopa 25 mg-levodopa 100 mg 2 tab PO 4X/DAY parkinsons 06/25/23 01/18/24 17:00 History tablet 2 tabs Handicap Placcard #1 ea 07/25/23 Unknown Rx finasteride 5 mg tablet 5 mg PO DAILY prostate health 12/19/23 12/31/23 History mirtazapine 30 mg tablet 30 mg PO DAILY mood 12/19/23 Unknown History tamsulosin 0.4 mg capsule 0.4 mg PO DAILY prostate 12/19/23 Unknown History spironolactone 25 mg tablet 12.5 mg (1/2 x 25 mg) PO DAILY 30 01/21/24 Unknown Rx days #15 tabs acetaminophen 500 mg capsule 1,000 mg PO Q8H PRN pain 04/26/24 Unknown History furosemide 20 mg tablet (Lasix) 20 mg PO SUTUTH 04/26/24 Unknown History indapamide 1.25 mg tablet 1.25 mg PO MOWEFR 04/26/24 Unknown History lorazepam 0.5 mg tablet (Ativan) 0.5 mg PO 4X/DAY 04/26/24 Unknown History magnesium hydroxide 400 mg/5 mL 30 ml PO Q6H PRN constipation 04/26/24 Unknown History oral suspension (Milk of Magnesia) sennosides 8.6 mg-docusate sodium 2 tab-cap PO BID 04/26/24 Unknown History 50 mg capsule (Senna Plus) Allergy/AdvReac Type Severity Reaction Status Date / Time adhesive tape Allergy NEEDS Verified 04/26/24 14:31 FOLLOW-UP Family History Mother Hypertension Father COPD (chronic obstructive pulmonary disease) CAD (coronary artery disease) Hx CABG CVA (cerebral vascular accident) Brother CAD (coronary artery disease) Diabetes Hypertension Sister Hypertension Son HLD (hyperlipidemia) Other Heart disease Surgical History History of open reduction and internal fixation (ORIF) procedure (~1979) History of bilateral inguinal hernia repair History of right hip replacement History of percutaneous transluminal coronary angioplasty (~03/21/10) S/P implantation of automatic cardioverter/defibrillator (AICD) Aortocoronary bypass status (~01/23/95) Social History (Updated 04/26/24 @ 17:[address] Maria Fernanda Wisdom MD) household members: spouse Smoking Status: Never smoker alcohol intake: never substance use type: does not use caffeine: Yes Type: carbonated beverages Number of servings: 1 what type of physical activity do you participate in: none seatbelt use: always do you feel safe at home: Yes ROS Review of Systems ROS Unobtainable: due to encephalopathy and due to mental status Vital Signs Vital Signs Vital Signs: 04/26/24 14:27 04/26/24 14:31 04/26/24 15:09 Temperature 102.9 F H 102.9 F H Temperature Source Axillary Temporal Pulse Rate 109 H 108 H Respiratory Rate 24 H 26 H Blood Pressure 100/68 90/63 Blood Pressure Mean 78 72 Pulse Ox 86 99 98 Oxygen Delivery Method Room Air Nasal Cannula Nasal Cannula Oxygen Flow Rate (L/min) 2 2 04/26/24 15:31 04/26/24 16:00 04/26/24 16:23 Temperature 102.7 F H 102.5 F H 102 F H Temperature Source Core Core Core Pulse Rate 110 H 105 H 105 H Respiratory Rate 23 H 19 H 20 H Blood Pressure 96/62 95/58 L 86/57 L Blood Pressure Mean 73 69 66 Pulse Ox 100 100 98 Oxygen Delivery Method Nasal Cannula Nasal Cannula Oxygen Flow Rate (L/min) 2 2 04/26/24 16:24 Temperature 102 F H Temperature Source Pulse Rate 105 H Respiratory Rate 20 H Blood Pressure 86/57 L Blood Pressure Mean 66 Pulse Ox 98 Oxygen Delivery Method Oxygen Flow Rate (L/min) Weight Weight: 145 lb 8.081 oz Body Mass Index (BMI) 20.8 Physical Exam Narrative Physical Examination: General: Awake to stimuli, improved alertness as initially was more encephalopathic, currently oriented to self, place with some difficulty giving correct year initially and month but corrected himself, family notes this is improved since previous, laying in the ED bed, ill-appearing. Skin: Normal color, normal turgor, no icterus, no cyanosis except occasional stage ecchymoses, abrasion, right great toe with medial side ingrown toenail evident. HEENT: AT/NC, EOMI, PERRLA, dry MM, no carotid bruits or JVD noted. Lungs: Diminished, greater bases, mildly increased respiratory rate but no distress, no rales, ronchi or wheezing. Heart: Tachycardic with regular; no gallop, rub audible. Abdomen: Soft, nontender to palpation except discomfort to the suprapubic region when palpated, no obvious distention, mildly hyperactive BS, no appreciated HSM. Extremities: No cyanosis, clubbing, or edema. Neurological: Awake to stimuli, improved alertness as initially was more encephalopathic, currently oriented to self, place with some difficulty giving correct year initially and month but corrected himself, family notes this is improved since previous, laying in the ED bed, ill-appearing, cognitive function improving since initial ED arrival but still not baseline intact; pupils equally reactive to light and accommodation, cranial nerves gross normal, moving all 4 extremities, no focal deficits, strength severely globally decreased. Psychiatric: Affect appears flat, fatigued, ill-appearing, no acute evidence of depressive or anxiety feelings. Results Lab / Micro Data 04/26/24 14:44 04/26/24 14:44 Labs: Laboratory Results - last 24 hr 04/26/24 14:44: WBC 6.4, RBC 3.96 L, Hgb 12.5 L, Hct 37.9 L, MCV 95.7 H, MCH 31.6, MCHC 33.0, RDW Std Deviation 47.1 H, RDW Coeff of Patricia 13.2, Plt Count 173, MPV 9.1, Immature Gran % (Auto) 0.500, Neut % (Auto) 97.0 H, Lymph % (Auto) 1.7 L, Pierce % (Auto) 0.3, Eos % (Auto) 0.2, Baso % (Auto) 0.3, Absolute Neuts (auto) 6.2, Absolute Lymphs (auto) 0.11 L, Nucleated RBC % 0, PT 14.4, INR 1.1, APTT 27.0, Sodium 140, Potassium 3.5, Chloride 107, Carbon Dioxide 24.0, Anion Gap 9, BUN 23 H, Creatinine 1.38 H, Estim Creat Clear Calc 39.86, Est GFR (MDRD) Af Amer 64, Est GFR (MDRD) Non-Af 53 L, BUN/Creatinine Ratio 16.7, Glucose 138 H, L actic Acid 5.0 H*, Calcium 9.2, Total Bilirubin 0.70, AST 28, ALT 49, Alkaline Phosphatase 106, Total Protein 6.3 L, Albumin 3.2, Globulin 3.1, Albumin/Globulin Ratio 1.0 04/26/24 15:09: Urine Color Yellow, Urine Clarity Sl. Cloudy, Urine pH 6.0, Ur Specific [place] 1.010, Urine Protein 15 H, Urine Glucose (UA) Normal, Urine Ketones Negative, Urine Occult Blood 25 H, Urine Nitrite Negative, Urine Bilirubin Negative, Urine Urobilinogen Normal, Ur Leukocyte Esterase 500 H, Urine RBC 0-5 SEEN, Urine WBC 50-100 SEEN, Ur Squamous Epith Cells 0 SEEN, Urine Bacteria 3+, Urine Mucus 0 SEEN Micro: Microbiology 04/26/24 14:54 Mucosa - Nose SARS-CoV-2, Influenza & RSV (PCR) - Final Imaging Radiology Impression Abdomen/Pelvis CT 04/26/24 14:51 IMPRESSION: Nonspecific perinephric fluid collection which may be related to remote trauma. Sheehan catheter in place within a thick-walled urinary bladder. Findings may be related to cystitis. Question rectal impaction. Electronically Signed: Justice Connolly MD at 16:15 EST , Chest X-Ray 04/26/24 15:11 IMPRESSION: 1. Hyperinflation of the lungs and perhaps mild interstitial prominence without focal airspace disease likely indicative of COPD. 2. Status post CABG. No cardiomegaly. Electronically Signed: Timoteo Hernandez, at 15:23 EST , Assessment & Plan Assessment/Plan (1) Acute UTI: (2) Sepsis: PLAN: Plan The patient is an 78 y/o M w/ PMHx: Parkinson's disease, CAD/ischemic cardiomyopathy s/p CABG 1994 and PCI 2009, HTN, HLD, PSVT s/p AICD/cardiac resynchronization therapy pacemaker, HFrEF, BPH with obstructive pathology, Anxiety and Depression, Chronic anemia, CKD stage II per GFR trending who presents to the [facility] ED on 04/26/24 with history of hematuria with decreased responsiveness and worsening weakness prompting to bring patient into the ED for further evaluation. #1. Acute Encephalopathy secondary to Acute sepsis (urinary tract infection, febrile, tachycardic, tachypneic, hypoxic, decreased responsiveness/encephalopathy, lactic acidosis) secondary to Acute Complicated Urinary Tract Infection: Will admit to the ICU per facility protocol, will consult cook soup per facility protocol, UA upon ED evaluation remarkable, pending UCx, continue IVFs with 30 cc/kg IV fluids per sepsis protocol, discussed central line/pressor therapy usage with family/HCPOA and they do not want to proceed with these measures if his pressure does not improve but are amenable to consideration additional judicious IVFs and midodrine, will continue to monitor I/Os, continue IV Rocephin w/ transition as able pending sensitivities and speciation, consult cook soup per protocol. Bld cx x 2 obtained in the ED. PT/OT/case management consulted for discharge planning. #2. Acute hypoxia, potentially multifactorial secondary to #1 and noted mild bibasilar atelectasis on lower thorax on CT abdomen and pelvis: Will maintain on oxygen with wean as tolerated to room air, PRN albuterol, HOB, IS parameters, full respiratory viral pending to be cautious additionally. #3. Acutely elevated creatinine/Acute renal insufficiency on Chronic Kidney Disease Stage II per GFR trending: Admission BUN/Cr 23/1.38, GFR 53, baseline renal function primarily 0.8-1.2 but has vacillated, most recently prior to this 02/06/2024 creatinine 1.16, and GFR primarily low 60 range, repeat BMP in AM. #4. Questionable rectal impaction: Noted on CT, will initiate bowel regimen with enema and oral regimen if appropriate. #5. CAD: Status post remote CABG 1994 and PCI 2009 approximately, continue aspirin, statin, holding metoprolol and ramipril given hypotension, add back once clinically appropriate. #6. HFrEF, chronic: We will continue patient aspirin, statin, holding metoprolol, ramipril, spironolactone and Lasix given hypotension, judiciously hydrating given history, add back medication once clinically appropriate. Most recent echocardiogram noted 08/22/2023 with mildly dilated LV, EF 30%, LA moderately enlarged, mild to moderate MVI, mild to moderate TBI. #7. Hypertension: Given presentation with hypotension and IV fluid necessity we will hold patient hypertensive regimen, resume once clinically appropriate, judiciously hydrating given underlying heart failure history concurrently. #8. Hyperlipidemia: We will continue patient home statin therapy. #9. PSVT: Status post AICD/cardiac resynchronization therapy pacemaker, encourage continued follow-up with cardiology as previously arranged and interrogation as previously arranged. #10. Chronic macrocytic anemia: Admission hemoglobin 12.5, MCV 95.7, baseline hemoglobin primarily 10-11, stable, continue to trend. #11. Parkinson disease: Complicates presentation, continue patient home Sinemet regimen, fall precautions, PT/OT/case management consulted for discharge planning. #12. Anxiety and depression: Will continue patient home mirtazapine home regimen. Will cautiously continue his anxiolytics to avoid withdrawal given timeline of usage but hold for sedation. #13. BPH with obstructive pathology: We will continue patient on Flomax and finasteride regimen. #14. DVT prophylaxis: Lovenox. #15. CODE status: Patient KATHIE is his who is present and living will is currently in place. Discussed CODE status at length including difference between FULL code, DNR-CCA and DNR-CC status. Following discussions about the differences in these status, requested DNR-CCA, no intubation. Discussed at length with family central line and pressor usage given current BP and following length discussion and review of procedure decision to avoid these aggressive interventions. Advanced Care Planning Face to Face Time: 18 minutes. Charges/Coding Visit Charges Inpatient E&M: 68080 Init Hosp L3 Procedures Hospitalists Procedures: 93011 Advncd Care Plan 30 Min
[2024-04-26 16:54] LABS: Magnesium 1.6 mg/dL (1.6-2.6); Phosphorus 1.6 mg/dL (2.5-4.9)
--- NOTE | 2024-04-26 18:02 | CON.PCM.CC_ITS ---
HPI Consult Data Date of Consult: 04/26/24 HPI Narrative HPI Narrative: BRUCE LUND, is a 78 yo M w/ Parkinson's disease, CHF EF 30% s/p ICD, CAD s/p CABG and PCI, paroxysmal SVT, BPH, CKD, anemia, depression who was admitted for weakness and septic shock. History provided per at bedside. He apparently developed acute onset weakness, unresponsiveness and fevers this AM. He was on hospice for severe Parkinson's, however she revoked this and brought him to hospital. He was noted to be febrile, hypotensive, and with UA/CT findings concerning for UTI. He was given IVF boluses and started on empiric abx. He is apparently substantially more alert now per , though still not speaking much. Family did continue DNR/DNI, and per discussion with hospitalist they did not want any invasive lines or initiation of vasopressors. They are OK with trying midodrine. Per he did not report any recent dyspnea, cough, abd pain, vomiting, diarrhea, dysuria or other new sx. 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 Abnormal electrocardiogram Nonspecific abnormal unspecified cardiovascular function study Paroxysmal supraventricular tachycardia by electrocardiogram (ECG) Home Medications ?Medication ?Instructions ?Recorded ?Last Taken ?Type aspirin 81 mg tablet,delayed 81 mg PO DAILY@0800 heart [facility] 04/21/13 12/30/23 History release nitroglycerin 0.4 mg sublingual 0.4 mg sublingual Q5M PRN Chest 06/12/19 Unknown Rx tablet Pain #25 tabs albuterol sulfate 90 mcg/actuation 2 puff inhalation Q6H PRN 01/27/20 Unknown Rx aerosol inhaler shortness of breath or wheezing #6.7 grams carbidopa 25 mg-levodopa 100 mg 2 tab PO 4X/DAY parkinsons 06/25/23 01/18/24 17:00 History tablet 2 tabs Handicap Placcard #1 ea 07/25/23 Unknown Rx finasteride 5 mg tablet 5 mg PO DAILY [facility] 12/19/23 12/31/23 History mirtazapine 30 mg tablet 30 mg PO DAILY mood 12/19/23 Unknown History tamsulosin 0.4 mg capsule 0.4 mg PO DAILY prostate 12/19/23 Unknown History spironolactone 25 mg tablet 12.5 mg (1/2 x 25 mg) PO DAILY 30 01/21/24 Unknown Rx days #15 tabs acetaminophen 500 mg capsule 1,000 mg PO Q8H PRN pain 04/26/24 Unknown History furosemide 20 mg tablet (Lasix) 20 mg PO SUTUTH 04/26/24 Unknown History indapamide 1.25 mg tablet 1.25 mg PO MOWEFR 04/26/24 Unknown History lorazepam 0.5 mg tablet (Ativan) 0.5 mg PO 4X/DAY 04/26/24 Unknown History magnesium hydroxide 400 mg/5 mL 30 ml PO Q6H PRN constipation 04/26/24 Unknown History oral suspension (Milk of Magnesia) sennosides 8.6 mg-docusate sodium 2 tab-cap PO BID 04/26/24 Unknown History 50 mg capsule (Senna Plus) Allergy/AdvReac Type Severity Reaction Status Date / Time adhesive tape Allergy NEEDS Verified 04/26/24 14:31 FOLLOW-UP Family History Mother Hypertension Father COPD (chronic obstructive pulmonary disease) CAD (coronary artery disease) Hx CABG CVA (cerebral vascular accident) Brother CAD (coronary artery disease) Diabetes Hypertension Sister Hypertension Son HLD (hyperlipidemia) Other Heart disease Surgical History History of open reduction and internal fixation (ORIF) procedure (~1979) History of bilateral inguinal hernia repair History of right hip replacement History of percutaneous transluminal coronary angioplasty (~03/21/10) S/P implantation of automatic cardioverter/defibrillator (AICD) Aortocoronary bypass status (~01/23/95) Social History (Updated 04/26/24 @ 17:[address] Maria Fernanda Wisdom MD) household members: spouse Smoking Status: Never smoker alcohol intake: never substance use type: does not use caffeine: Yes Type: carbonated beverages Number of servings: 1 what type of physical activity do you participate in: none seatbelt use: always do you feel safe at home: Yes Objective Data Objective Data Vital Signs: Vital Signs Last response 3 Temperature 38.8 C H 04/26/24 16:24 Temperature Source Core 04/26/24 16:23 Pulse Rate 105 H 04/26/24 16:24 Respiratory Rate 20 H 04/26/24 16:24 Blood Pressure 86/57 L 04/26/24 16:24 Blood Pressure Mean 66 04/26/24 16:24 Pulse Ox 98 04/26/24 16:24 Oxygen Delivery Method Nasal Cannula 04/26/24 16:23 Oxygen Flow Rate (L/min) 2 04/26/24 16:23 I&O: I&O Last 24 Hours 3 04/25/24 04/26/24 04/26/24 23:59 11:59 23:59 Intake Total 2049 Balance 2049 I&O: Total Stay 3 04/26/24 14:26 thru 04/26/24 17:37 Intake Total 2049 Current Meds Ordered / Administered: Current meds ordered / Administered 3 Generic Name Dose Route Start Last Admin Trade Name Freq PRN Reason Stop Dose Admin Acetaminophen 650 mg 04/26/24 17:20 Acetaminophen 325 Mg Tablet PO Q4H PRN PRN Fever, pain 1-10 Al Hydroxide/Mg Hydroxide 30 ml 04/26/24 17:20 Mag Hydrox/Al Hydrox/Simeth 30 Ml Udc PO Q6H PRN PRN Gastric Burning Albuterol Sulfate 2.5 mg 04/26/24 17:25 Albuterol 2.5 Mg/3 Ml Vial.Neb. INHALATION Q6H PRN shortness of breath or wheezing Ascorbic Acid 500 mg 04/27/24 10:00 Ascorbic Acid 500 Mg Tablet PO DAILY [facility] Aspirin 81 mg 04/27/24 08:00 Aspirin E.C. 81 Mg Tablet PO DAILY@0800 [facility] Atorvastatin Calcium 80 mg 04/26/24 22:00 Atorvastatin Calcium 80 Mg Tablet PO QHS [facility] Calamine/Phenol 1 applic 04/26/24 18:00 Menthol/Lanolin/Calamine/Znox 113 Gm Tube TOPICAL 4X/DAY [facility] Protocol Carbidopa/Levodopa 2 tablet 04/26/24 17:00 Carbidopa/Levodopa 25/100 Tablet PO 0900,1300,1700,2100 [facility] Enoxaparin Sodium 40 mg 04/27/24 10:00 Enoxaparin 40 Mg/0.4 Ml Syringe SC DAILY [facility] Finasteride 5 mg 04/27/24 10:00 Finasteride 5 Mg Tablet PO DAILY [facility] Guaifenesin 10 ml 04/26/24 17:20 Guaifenesin 10 Ml Udc (200mg/10ml) PO Q4H PRN PRN COUGH Hydralazine HCl 10 mg 04/26/24 17:20 Hydralazine 20 Mg/Ml Vial IV Q4H PRN PRN SBP > 160 Protocol Ceftriaxone Sodium 1 gm in 50 mls @ 100 mls/hr 04/27/24 10:00 Rocephin IV 05/04/24 10:01 Q24 [facility] Sodium Chloride 1,000 mls @ 75 mls/hr 04/26/24 17:20 IV 04/27/24 06:39 .[id number] [facility] Protocol Sodium Chloride 100 mls @ 15 mls/hr 04/26/24 17:39 IV .Q6H40M PRN Saline Flush Sodium Chloride 100 mls @ 15 mls/hr 04/26/24 17:39 IV .Q6H40M PRN Additional IVPB Infusion Lorazepam 0.5 mg 04/26/24 18:00 Lorazepam 0.5 Mg Tablet PO 4X/DAY [facility] Melatonin 10 mg 04/26/24 17:20 Melatonin 10 Mg Tablet PO HS PRN insomnia Midodrine 10 mg 04/26/24 17:20 Midodrine Hcl 5 Mg Tablet PO TIDCM [facility] Mirtazapine 30 mg 04/27/24 10:00 Mirtazapine 30 Mg Tablet PO DAILY [facility] Ondansetron HCl 4 mg 04/26/24 17:20 Ondansetron 4 Mg/2 Ml Vial IV Q8H PRN PRN NAUSEA/VOMITING Polyethylene Glycol 17 gm 04/27/24 10:00 Polyethylene Glycol 3350 17 Gm Packet PO 04/29/24 10:01 DAILY [facility] Senna/Docusate Sodium 2 tablet 04/26/24 17:20 Senna/Docusate Sodium 1 Tablet PO BID PRN PRN Constipation Sodium Chloride 10 - 40 ml 04/26/24 17:39 0.9% Saline Lock 10 Ml Syringe IV UD PRN SALINE FLUSH Tamsulosin HCl 0.4 mg 04/27/24 10:00 Tamsulosin Hcl 0.4 Mg Capsule PO DAILY [facility] Lab / Micro Data 04/26/24 14:44 04/26/24 14:44 Labs: Laboratory Results - last 24 hr 04/26/24 14:44: WBC 6.4, RBC 3.96 L, Hgb 12.5 L, Hct 37.9 L, MCV 95.7 H, MCH 31.6, MCHC 33.0, RDW Std Deviation 47.1 H, RDW Coeff of Patricia 13.2, Plt Count 173, MPV 9.1, Immature Gran % (Auto) 0.500, Neut % (Auto) 97.0 H, Lymph % (Auto) 1.7 L, [place] % (Auto) 0.3, Eos % (Auto) 0.2, Baso % (Auto) 0.3, Absolute Neuts (auto) 6.2, Absolute Lymphs (auto) 0.11 L, Nucleated RBC % 0, PT 14.4, INR 1.1, APTT 27.0, Sodium 140, Potassium 3.5, Chloride 107, Carbon Dioxide 24.0, Anion Gap 9, BUN 23 H, Creatinine 1.38 H, Estim Creat Clear Calc 39.86, Est GFR (MDRD) Af Amer 64, Est GFR (MDRD) Non-Af 53 L, BUN/Creatinine Ratio 16.7, Glucose 138 H, L actic Acid 5.0 H*, Calcium 9.2, Phosphorus 1.6 L, Magnesium 1.6, Total Bilirubin 0.70, AST 28, ALT 49, Alkaline Phosphatase 106, Total Protein 6.3 L, Albumin 3.2, Globulin 3.1, Albumin/Globulin Ratio 1.0 04/26/24 15:09: Urine Color Yellow, Urine Clarity Sl. Cloudy, Urine pH 6.0, Ur Specific [place] 1.010, Urine Protein 15 H, Urine Glucose (UA) Normal, Urine Ketones Negative, Urine Occult Blood 25 H, Urine Nitrite Negative, Urine Bilirubin Negative, Urine Urobilinogen Normal, Ur Leukocyte Esterase 500 H, Urine RBC 0-5 SEEN, Urine WBC 50-100 SEEN, Ur Squamous Epith Cells 0 SEEN, Urine Bacteria 3+, Urine Mucus 0 SEEN Micro: Microbiology 04/26/24 14:54 Mucosa - Nose SARS-CoV-2, Influenza & RSV (PCR) - Final Imaging Radiology Impression Abdomen/Pelvis CT 04/26/24 14:51 IMPRESSION: Nonspecific perinephric fluid collection which may be related to remote trauma. Sheehan catheter in place within a thick-walled urinary bladder. Findings may be related to cystitis. Question rectal impaction. Electronically Signed: Justice Connolly MD at 16:15 EST , Chest X-Ray 04/26/24 15:11 IMPRESSION: 1. Hyperinflation of the lungs and perhaps mild interstitial prominence without focal airspace disease likely indicative of COPD. 2. Status post CABG. No cardiomegaly. Electronically Signed: Timoteo Hernandez DO at 15:23 EST , Assessment and Plan . Assessment and plan: Physical Exam: Gen - NAD, elderly HEENT - MMM. Sclera anicteric Resp - CTAB. Breathing nonlabored CV - Mild tachycardia. No m/g/r Abd - Soft, NT, ND Ext - No c/c/e. Skin - No rashes? Neuro - Awake but not speaking much, baseline Parkinson's dementia I have reviewed the pertinent vital sign, laboratory, and imaging data. ASSESSMENT: # Septic shock - Cardiogenic component not excluded # UTI # Lactic acidosis # Acute hypoxic respiratory failure # Parkinson's disease # CHF EF 30% s/p ICD # CHRIS on CKD # CAD s/p CABG and PCI # Paroxysmal SVT # BPH # Anemia # Depression PLAN: -Cont cautious IVF for now. Agree with midodrine. Per family request, no CVL, pressors, or significant escalation of care -On 2L NC, wean to keep sats > 90%. Mild atelectasis on CT abd. Encourage IS if can cooperate -Empiric abx. f/u Cx -Replete electrolytes PRN -Monitor Cr, UOP. Monitor for worsening volume overload -Follow lactate -Cont carbidopa-levodopa FEN/GI: Gentle PO as tolerated Proph DVT/GI: Lovenox Code status: DNR/DNI, no pressors Updated at bedside Critical Care Time: 60 mins The entirety of this encounter was completed via telemedicine
[2024-04-26] MEDS: Carbidopa/Levodopa 25/100 Tablet PO ×2 (18:07→22:05)
[2024-04-26] MEDS: Midodrine HCl 5 MG Tablet 10 MG PO (18:07)
[2024-04-26] MEDS: 0.9% Normal Saline (1000mL) 1,000 ML 75 ML IV (18:35)
[2024-04-26 18:53] LABS: Reflex Lactate? Y
[2024-04-26 19:38] LABS: Lactic Acid 4.1 mmol/L (0.4-1.9)
[2024-04-26] MEDS: Menthol/Lanolin/Calamine/Znox 113 GM Tube 1 APPLIC TOPICAL (22:05)
[2024-04-26] MEDS: Atorvastatin Calcium 80 MG Tablet PO (22:05)
[2024-04-26] MEDS: 0.9% Saline Lock 10 ML Syringe IV (22:06)
[2024-04-27] VITALS (21 sets, daily range): BP systolic 81–119; BP diastolic 48–77; PULSE 69–88; RESP 14–24; TEMP 37.2–37.7; O2SAT 96–100; BMI 20.1
[2024-04-27 04:00] LABS: Absolute Lymphocyte Count 0.39 X10^3/uL (0.83-4.51); Absolute Neutrophil Count 15.8 X10^3/uL (2.0-7.7); Basophil# 0.06 X10^3/uL; Basophil% 0.3 % (0-1); Eosinophil# 0.02 X10^3/uL; Eosinophils% 0.1 % (0-5); Hematocrit 32.4 % (40-54); Hemoglobin 10.7 g/dL (13.0-16.5); Lymphocyte # 0.39 X10^3/ul (0.83-4.51); Lymphocyte % 2.2 % (19-41); Mean Corpuscular Hgb 31.8 pg (27.0-32.0); Mean Corpuscular Volume 96.4 fL (80-94); Mean Platelet Vol. 8.9 fl (6.2-12.0); Monocyte# 0.91 X10^3/uL; Monocyte% 5.2 % (0-10); NRBC Flagged by Analyzer 0 % (0-5); Neutrophil # 15.81 X10^3/uL (2.7-7.7); Neutrophil % 91.2 % (47-70); POSITIVE DIFFERENTIAL YES; POSITIVE MORPHOLOGY YES; Platelet Count 146 K/mm3 (150-450); RBC Distribution Width CV 13.8 % (11.6-14.6); RBC Distribution Width SD 48.6 fl (35.1-43.9); Red Blood Count 3.36 M/mm3 (4.6-6.2); White Blood Count 17.4 K/mm3 (4.4-11.0)
[2024-04-27 04:17] LABS: AST(SGOT) 27 U/L (15-37); Alanine Aminotransfer ALT/SGPT 10 U/L (16-61); Albumin, Serum 2.7 g/dL (3.2-5.0); Alkaline Phosphatase 78 U/L (45-117); Anion Gap 6 (5-15); BUN 25 mg/dL (7-18); BUN/Creat Ratio 22.9 RATIO (10-20); Calcium,Total 8.3 mg/dL (8.5-10.1); Chloride 112 mmol/L (98-107); Creatinine, Serum 1.09 mg/dL (0.70-1.30); EST Glomerular Filtration Rate 69 mL/min (>60); Est Glom Filt Rate - Afr Amer 84 mL/min (>60); Estimated Creatinine Clearance 48.85 ml/min; Globulin 2.6 g/dL (2.2-4.2); Glucose 92 mg/dL (74-106); Potassium 3.7 mmol/L (3.5-5.1); Protein, Total 5.3 g/dL (6.4-8.2); Sodium Level 140 mmol/L (136-145)
[2024-04-27 04:23] LABS: Differential Indicated SCAN CRITERIA MET
[2024-04-27 04:45] LABS: Differential Comment SCANNED
--- NOTE | 2024-04-27 07:37 | PN.HOSP_ITS ---
Reason for Visit Reason for Visit: Altered mental status/weakness Subjective Subjective Patient has no complaints this morning. States he is confused as to why he is in the hospital. He is alert and oriented x 3. We did discuss that he has an infection likely coming from his urinary tract for which she is on antibiotics and we are currently treating. Hemodynamics have improved with fluid resuscitation. Objective Data Objective Data Vital Signs: Vital Signs Temp Pulse Resp BP Pulse Ox O2 Del Method O2 Flow Rate 99.4 F H 77 21 H 111/67 100 Nasal Cannula 2 04/27/24 07:00 04/27/24 07:00 04/27/24 07:00 04/27/24 07:00 04/27/24 07:00 04/27/24 07:00 04/27/24 07:00 Oxygen Flow Rate (L/min) 2 Oxygen Delivery Method Nasal Cannula Weight: 63.8 kg Body Mass Index (BMI) 20.1 Intake & Output: Intake and Output for Last 24 Hours 04/25/24 04/26/24 04/27/24 23:59 23:59 23:59 Intake Total 3350 / 3350 1860 / 1860 Output Total 325 / 375 300 / 300 Balance 3025 / 2975 1560 / 1560 Lab / Micro Data 04/27/24 03:50 04/27/24 03:50 Labs: Laboratory Results - last 24 hr 04/26/24 14:44: WBC 6.4, RBC 3.96 L, Hgb 12.5 L, Hct 37.9 L, MCV 95.7 H, MCH 31.6, MCHC 33.0, RDW Std Deviation 47.1 H, RDW Coeff of Patricia 13.2, Plt Count 173, MPV 9.1, Immature Gran % (Auto) 0.500, Neut % (Auto) 97.0 H, Lymph % (Auto) 1.7 L, [place] % (Auto) 0.3, Eos % (Auto) 0.2, Baso % (Auto) 0.3, Absolute Neuts (auto) 6.2, Absolute Lymphs (auto) 0.11 L, Nucleated RBC % 0, PT 14.4, INR 1.1, APTT 27.0, Sodium 140, Potassium 3.5, Chloride 107, Carbon Dioxide 24.0, Anion Gap 9, BUN 23 H, Creatinine 1.38 H, Estim Creat Clear Calc 39.86, Est GFR (MDRD) Af Amer 64, Est GFR (MDRD) Non-Af 53 L, BUN/Creatinine Ratio 16.7, Glucose 138 H, L actic Acid 5.0 H*, Calcium 9.2, Phosphorus 1.6 L, Magnesium 1.6, Total Bilirubin 0.70, AST 28, ALT 49, Alkaline Phosphatase 106, Total Protein 6.3 L, Albumin 3.2, Globulin 3.1, Albumin/Globulin Ratio 1.0 04/26/24 15:09: Urine Color Yellow, Urine Clarity Sl. Cloudy, Urine pH 6.0, Ur Specific [place] 1.010, Urine Protein 15 H, Urine Glucose (UA) Normal, Urine Ketones Negative, Urine Occult Blood 25 H, Urine Nitrite Negative, Urine Bilirubin Negative, Urine Urobilinogen Normal, Ur Leukocyte Esterase 500 H, Urine RBC 0-5 SEEN, Urine WBC 50-100 SEEN, Ur Squamous Epith Cells 0 SEEN, Urine Bacteria 3+, Urine Mucus 0 SEEN 04/26/24 19:00: Lactic Acid 4.1 H* 04/27/24 03:50: WBC 17.4 H, RBC 3.36 L, Hgb 10.7 L, Hct 32.4 L, MCV 96.4 H, MCH 31.8, MCHC 33.0, RDW Std Deviation 48.6 H, RDW Coeff of Patricia 13.8, Plt Count 146 L, MPV 8.9, Immature Gran % (Auto) 1.000 H, Neut % (Auto) 91.2 H, Lymph % (Auto) 2.2 L, [place] % (Auto) 5.2, Eos % (Auto) 0.1, Baso % (Auto) 0.3, Absolute Neuts (auto) 15.8 H, Absolute Lymphs (auto) 0.39 L, Nucleated RBC % 0, Differential Comment SCANNED, Sodium 140, Potassium 3.7, Chloride 112 H, Carbon Dioxide 23.0, Anion Gap 6, BUN 25 H, Creatinine 1.09, Estim Creat Clear Calc 48.85, Est GFR (MDRD) Af Amer 84, Est GFR (MDRD) Non-Af 69, BUN/Creatinine Ratio 22.9 H, Glucose 92, Calcium 8.3 L, Total Bilirubin 0.90, AST 27, ALT 10 L, Alkaline Phosphatase 78, Total Protein 5.3 L, Albumin 2.7 L, Globulin 2.6, Albumin/Globulin Ratio 1.0 Micro: Microbiology 04/26/24 14:45 Blood Culture (Wb) - Right Forearm Blood Culture - Preliminary 04/26/24 14:44 Blood Culture (Wb) - Anticubital Left Blood Culture - Preliminary 04/26/24 18:30 Nasal Secretion MRSA (PCR) - Final 04/26/24 19:10 Mucosa - Nasopharyngeal Respiratory Panel (PCR) - Final 04/26/24 14:54 Mucosa - Nose SARS-CoV-2, Influenza & RSV (PCR) - Final Radiography Diagnostic Testing: Radiology Impression Abdomen/Pelvis CT 04/26/24 14:51 IMPRESSION: Nonspecific perinephric fluid collection which may be related to remote trauma. Sheehan catheter in place within a thick-walled urinary bladder. Findings may be related to cystitis. Question rectal impaction. Electronically Signed: Justice Connolly MD at 16:15 EST , Chest X-Ray 04/26/24 15:11 IMPRESSION: 1. Hyperinflation of the lungs and perhaps mild interstitial prominence without focal airspace disease likely indicative of COPD. 2. Status post CABG. No cardiomegaly. Electronically Signed: Timoteo Hernandez DO at 15:23 EST , Physical Exam Const alert, oriented x3 and no apparent distress; Negative for healthy appearing Constitutional Narrative: Elderly, frail-appearing, white male, lying in bed, currently appears comfortable, nontoxic appearing HEENT head/scalp atraumatic and moist oral mucous membranes HEENT Narrative: Mallampati 2, no thrush Head and Scalp: normocephalic Resp normal respiratory effort, no retractions, no use of accessory muscles and clear to auscultation bilaterally Auscultation: Negative for rales, rhonchi or wheezes Cardio regular rate, regular rhythm, S1 normal heart sound, S2 normal heart sound, no murmurs, no rub, no gallops and no clicks GI normal to inspection, nondistended, normoactive bowel sounds, soft to palpation and non-tender GI Narrative: Abdomen is scaphoid Extremity no clubbing, cyanosis or edema Extremity Narrative: Radial and pedal pulses are 2+, decreased lean muscle mass Neuro oriented x3, moves all extremities and no focal motor deficits Neuro Narrative: Significant generalized weakness, very fine resting tremor Psych Psych Narrative: Affect is flat, bradykinesia present, mildly masked facies but eye contact is good and patient interacts appropriately Assessment & Plan Assessment/Plan (1) Sepsis: (2) Gram-negative bacteremia: PLAN: Plan Sepsis secondary to gram-negative bacteremia related to suspected UTI -Was treated with 30 cc/kg body weight and had fluid responsive blood pressures -Is not to be treated with pressors per CODE STATUS -Continue midodrine 10 mg 3 times daily -Continue antibiotics with ceftriaxone--> given this is a complicated UTI would treat for total of 7 to 10 days -Preliminary blood cultures show gram-negative rods -Urine cultures pending -CT of the abdomen pelvis done shows no stones or hydronephrosis -Hemodynamics seem to be stabilized will transfer out of ICU today Lactic acidosis -Resolving with fluid resuscitation and treatment of infection -Secondary to the above Toxic/metabolic encephalopathy -Appears to be resolving -Alert and oriented x 3 -Continue to monitor clinically Acute hypoxia -Sats are currently 100% on 2 L -Wean oxygen -Suspect related to the above, hypoventilation, and atelectasis -Add incentive spirometer Leukocytosis -White count jumped and is currently 17.4 -Will continue to monitor his treatment moves towards completion Chronic macrocytic anemia -Baseline hemoglobin appears to be between 10 and 11 -Currently 10.7 -No signs of bleeding -Continue to monitor Mild thrombocytopenia -Platelet count is 146,000 -Likely added to sepsis -Should recover with treatment -Continue to monitor Hypophosphatemia -K-Phos bolus -Repeat in a.m. Severe malnutrition -Supplements added -Dietitian is consulted Constipation -Continue as needed senna -Continue scheduled MiraLAX CKD stage II with elevated serum creatinine above baseline on presentation but not CHRIS -Baseline appears to be between 1 and 1.2 -1.3 on presentation -Resolved back to baseline with hydration -Monitor Chronic HFrEF -Last echo in August 2023 showed an EF of 30% with a moderately enlarged LA, mild to moderate MVI and mild to moderate TVI CAD essential hypertension/hyperlipidemia -Continue home aspirin -Continue home statin therapy -Hold home antihypertensives until blood pressure remained stable off midodrine BPH with obstruction -Continue home Flomax If and continue Proscar Parkinson's disease -Continue home Sinemet -PT/OT following -Case management/social work following Depression/anxiety -Continue home mirtazapine -Continue home lorazepam DVT prophylaxis -Subcu Lovenox CODE STATUS -DNR CCA with no intubation--> had been following with hospice and will need to clarify intentions of discharge Charges/Coding Visit Charges Inpatient E&M: 02400 Subs Hosp L2
[2024-04-27] MEDS: Potassium Phosphate 40 MM in 0.9% Normal Saline (500mL Bag) 500 ML 62.5 MM IV (07:51)
[2024-04-27] MEDS: Carbidopa/Levodopa 25/100 Tablet PO ×4 (07:52→21:12)
[2024-04-27] MEDS: Mirtazapine 30 MG Tablet PO (07:52)
[2024-04-27] MEDS: Midodrine HCl 5 MG Tablet 10 MG PO ×3 (07:52→16:33)
[2024-04-27] MEDS: Tamsulosin HCl 0.4 MG Capsule PO (07:53)
[2024-04-27] MEDS: Enoxaparin 40 MG/0.4 ML Syringe SC (07:53)
[2024-04-27] MEDS: Ascorbic Acid 500 MG Tablet PO (07:53)
[2024-04-27] MEDS: Finasteride 5 MG Tablet PO (07:53)
[2024-04-27] MEDS: Aspirin E.C. 81 MG Tablet PO (07:53)
[2024-04-27] MEDS: Polyethylene Glycol 3350 17 GM PACKET PO (07:54)
--- NOTE | 2024-04-27 07:56 | PN.CC_ITS ---
Assessment & Plan Assessment/Plan (1) Gram-negative bacteremia: PLAN: Plan RECOMMENDATIONS: 1. Continue antimicrobials, pending finalized culture data. 2. Continue scheduled midodrine. 3. Electrolyte replacement as needed. 4. Lovenox for DVT prophylaxis. 5. Encourage incentive spirometer use and mobilize patient as tolerated. 6. The patient is medically stable for transfer out of the intensive care unit. 7. Will sign off from a critical care perspective. Please call with any additional questions. IMPRESSIONS: 1. Gram-negative sepsis due to to suspected UTI with secondary hematogenous spread The patient presented with gram-negative bacteremia in the setting of suspected UTI with fluid responsive hypotension. Per CODE STATUS, the patient is not to receive any vasopressor support or central venous lines. Therefore, he will be continued on scheduled midodrine as ordered. Agree with antimicrobial therapy as ordered. The patient is otherwise clinically stable from my perspective. I have no additional recommendations from a critical care perspective. 2. Metabolic encephalopathy Most likely secondary to number 1. Mental status appears to be at baseline. Continue to monitor clinically. 3. Anemia/thrombocytopenia/malnutrition/chronic kidney disease/heart failure with reduced ejection fraction/coronary artery disease/Parkinson's disease Complicates care, management, recovery and prognosis. Continue home medications as indicated. CODE STATUS: DNR CCA without intubation This note was generated with [employer] dictation software. It may contain incorrect words, spelling, and punctuation that were not noted in checking the note before signing. Subjective Subjective The patient was seen and examined at the bedside this morning. Events from the last 24 hours have been reviewed. The patient currently has a low-grade fever but remains otherwise hemodynamically stable on room air. He has no specific complaints this morning. White blood cell count is elevated at 17,000. Hemoglobin was noted to be 10.7 g/dL with a platelet count of 146,000. Creatinine is within normal limits. Objective Data Objective Data The patient's most recent lab work, culture data and imaging studies have all been personally reviewed. Respiratory viral panel was negative. Preliminary blood cultures dated April 26 were positive for gram-negative rods. Urine culture is pending. Vital Signs: Vital Signs Temp Pulse Resp BP Pulse Ox O2 Del Method O2 Flow Rate 99.4 F H 77 21 H 111/67 100 Nasal Cannula 2 04/27/24 07:00 04/27/24 07:00 04/27/24 07:00 04/27/24 07:00 04/27/24 07:00 04/27/24 07:00 04/27/24 07:00 Oxygen Flow Rate (L/min) 2 Oxygen Delivery Method Nasal Cannula Weight: 140 lb 10.479 oz Body Mass Index (BMI) 20.1 Intake & Output: Intake and Output for Last 24 Hours 04/25/24 04/26/24 04/27/24 23:59 23:59 23:59 Intake Total 3350 / 3350 1860 / 1860 Output Total 325 / 375 300 / 300 Balance 3025 / 2975 1560 / 1560 Lab / Micro Data Attestation: I reviewed the patient's lab results. 04/27/24 03:50 04/27/24 03:50 Labs: Laboratory Results - last 24 hr 04/26/24 14:44: WBC 6.4, RBC 3.96 L, Hgb 12.5 L, Hct 37.9 L, MCV 95.7 H, MCH 31.6, MCHC 33.0, RDW Std Deviation 47.1 H, RDW Coeff of Patricia 13.2, Plt Count 173, MPV 9.1, Immature Gran % (Auto) 0.500, Neut % (Auto) 97.0 H, Lymph % (Auto) 1.7 L, [place] % (Auto) 0.3, Eos % (Auto) 0.2, Baso % (Auto) 0.3, Absolute Neuts (auto) 6.2, Absolute Lymphs (auto) 0.11 L, Nucleated RBC % 0, PT 14.4, INR 1.1, APTT 27.0, Sodium 140, Potassium 3.5, Chloride 107, Carbon Dioxide 24.0, Anion Gap 9, BUN 23 H, Creatinine 1.38 H, Estim Creat Clear Calc 39.86, Est GFR (MDRD) Af Amer 64, Est GFR (MDRD) Non-Af 53 L, BUN/Creatinine Ratio 16.7, Glucose 138 H, L actic Acid 5.0 H*, Calcium 9.2, Phosphorus 1.6 L, Magnesium 1.6, Total Bilirubin 0.70, AST 28, ALT 49, Alkaline Phosphatase 106, Total Protein 6.3 L, Albumin 3.2, Globulin 3.1, Albumin/Globulin Ratio 1.0 04/26/24 15:09: Urine Color Yellow, Urine Clarity Sl. Cloudy, Urine pH 6.0, Ur Specific [place] 1.010, Urine Protein 15 H, Urine Glucose (UA) Normal, Urine Ketones Negative, Urine Occult Blood 25 H, Urine Nitrite Negative, Urine Bilirubin Negative, Urine Urobilinogen Normal, Ur Leukocyte Esterase 500 H, Urine RBC 0-5 SEEN, Urine WBC 50-100 SEEN, Ur Squamous Epith Cells 0 SEEN, Urine Bacteria 3+, Urine Mucus 0 SEEN 04/26/24 19:00: Lactic Acid 4.1 H* 04/27/24 03:50: WBC 17.4 H, RBC 3.36 L, Hgb 10.7 L, Hct 32.4 L, MCV 96.4 H, MCH 31.8, MCHC 33.0, RDW Std Deviation 48.6 H, RDW Coeff of Patricia 13.8, Plt Count 146 L, MPV 8.9, Immature Gran % (Auto) 1.000 H, Neut % (Auto) 91.2 H, Lymph % (Auto) 2.2 L, [place] % (Auto) 5.2, Eos % (Auto) 0.1, Baso % (Auto) 0.3, Absolute Neuts (auto) 15.8 H, Absolute Lymphs (auto) 0.39 L, Nucleated RBC % 0, Differential Comment SCANNED, Sodium 140, Potassium 3.7, Chloride 112 H, Carbon Dioxide 23.0, Anion Gap 6, BUN 25 H, Creatinine 1.09, Estim Creat Clear Calc 48.85, Est GFR (MDRD) Af Amer 84, Est GFR (MDRD) Non-Af 69, BUN/Creatinine Ratio 22.9 H, Glucose 92, Calcium 8.3 L, Total Bilirubin 0.90, AST 27, ALT 10 L, Alkaline Phosphatase 78, Total Protein 5.3 L, Albumin 2.7 L, Globulin 2.6, Albumin/Globulin Ratio 1.0 Micro: Microbiology 04/26/24 14:45 Blood Culture (Wb) - Right Forearm Blood Culture - Preliminary 04/26/24 14:44 Blood Culture (Wb) - Anticubital Left Blood Culture - Preliminary 04/26/24 18:30 Nasal Secretion MRSA (PCR) - Final 04/26/24 19:10 Mucosa - Nasopharyngeal Respiratory Panel (PCR) - Final 12/22/24 14:54 Mucosa - Nose SARS-CoV-2, Influenza & RSV (PCR) - Final Radiography Diagnostic Testing: Radiology Impression Abdomen/Pelvis CT 04/26/24 14:51 IMPRESSION: Nonspecific perinephric fluid collection which may be related to remote trauma. Sheehan catheter in place within a thick-walled urinary bladder. Findings may be related to cystitis. Question rectal impaction. Electronically Signed: Justice Connolly MD at 16:15 EST , Chest X-Ray 04/26/24 15:11 IMPRESSION: 1. Hyperinflation of the lungs and perhaps mild interstitial prominence without focal airspace disease likely indicative of COPD. 2. Status post CABG. No cardiomegaly. Electronically Signed: Timoteo Hernandez DO at 15:23 EST , Physical Exam Const alert and no apparent distress Constitutional Narrative: Sitting upright in bed. General Appearance: cooperative HEENT normocephalic and head/scalp atraumatic Eyes PERRL, EOMs intact bilaterally and conjunctivae normal Neck supple General: trachea midline Chest inspection of chest normal Resp normal respiratory effort Auscultation: Negative for rales, rhonchi or wheezes Cardio regular rate and regular rhythm GI normal to inspection, nondistended, normoactive bowel sounds Extremity no clubbing, cyanosis or edema Skin no rashes or lesions noted Neuro CN's II-XII intact bilaterally and no focal motor deficits Neuro Narrative: Subtle resting tremor present Psych Mood & Affect: flat affect Charges/Coding Visit Charges Inpatient E&M: 41541 Subs Hosp L2
[2024-04-27] MEDS: Acetaminophen 325 MG Tablet 650 MG PO (07:59)
[2024-04-27] MEDS: LORazepam 0.5 MG Tablet PO ×4 (07:59→21:14)
--- NOTE | 2024-04-27 10:12 | CASEMGMT ---
Addendum entered by Imelda Mcintosh 04/27/24 14:41: RN CM back to pt room at this time. Pt is now at bedside and agreeable to discuss DC planning. Pt and pt state that they plan to return home at time of DC and continue hospice services for the pt. RN CM updated SW. Pt and pt deny any further questions or concerns at this time. Original Note: RN CM Assessment Face to Face with patient for initial transition planning/care coordination assessment. RN CM introduced self and role at [facility], pt voices understanding. Pt is A&Ox3 and is resting comfortably in bed and is calm. Care providers, pharmacy, and demographics verified. Pt is [place], slow to respond, and a poor historian at this time. However, pt is able to answer most of this RN CM questions appropriately. Pt states that this RN CM will also need to talk to my . TC to pt at this time, no answer. VM left. Pt does state that his will be into the hospital sometime today to help with DC planning. Per chart review, is appears that the pt was active with Hospice services, but was revoked for the pt to obtain treatment. Pt states that he does not remember what home services he is active with in all. Admitting dx: Sepsis, UTI LACE Strata: 2 PCP: Juan Carlos Joel Specialists: [facility] (Cardio), Neuro (unsure of name) Preferred Pharmacy: [facility] Prescription Benefit: Yes LNOK: Radha (W) Living Arrangements: Pt lives with his in a single story home with 2 steps to enter ADLs/IADLs: Pt requires assistance and was previously active with hospice services. Transportation: Pt does not drive. Pt drives. DME: FWW, Cane, Shower chair. HHC/SNF: Hx with [facility] Pt?s goal: Undetermined at this time Plan: TBD. 6-Click is 12. Pt states that he is unsure of any DC planning at this time. Once appropriate, Care Management will talk to the pt to better assist with DC planning. CM to follow. Leonardo Mcintosh RN, CM
--- NOTE | 2024-04-27 11:51 | CASEMGMT ---
Social Work SW created a list in [facility], should it be needed, of half-way facilities in network w/pt's insurance, in pt's preferred geographic area and complete w/quality and resource use data. JOHANNA Yan
[2024-04-27] MEDS: Ceftriaxone 1 GM/50 ML BAG IV (11:53)
--- NOTE | 2024-04-27 16:21 | CASEMGMT ---
Addendum entered by Malena Urbano 04/28/24 08:05: [facility] was not aware of patient's admission. They contacted patient's son and notified him patient cannot have both hospice and agressive care at the hospital. Hospice will send an RN in to do revocation papers. However, patient is welcome to sign back up for Hospice at discharge. Malena LOWERY Original Note: LEORA called [facility] and spoke with Pamela on referral line. Pamela stated patient is active with them. SW notified her of patient's admission and plan to go home and resume their services. LEORA will continue to follow. Malena LOWERY
[2024-04-27] MEDS: Atorvastatin Calcium 80 MG Tablet PO (21:12)
[2024-04-27] MEDS: Menthol/Lanolin/Calamine/Znox 113 GM Tube 1 APPLIC TOPICAL (21:13)
[2024-04-28 04:00] VITALS: BP 110/56; PULSE 80; RESP 14; TEMP 37.7; O2SAT 96
[2024-04-28 04:18] VITALS: BMI 21.7
[2024-04-28 04:28] LABS: Absolute Lymphocyte Count 0.59 X10^3/uL (0.83-4.51); Basophil# 0.04 X10^3/uL; Basophil% 0.4 % (0-1); Eosinophil# 0.15 X10^3/uL; Eosinophils% 1.6 % (0-5); Hematocrit 30.7 % (40-54); Hemoglobin 10.2 g/dL (13.0-16.5); Lymphocyte # 0.59 X10^3/ul (0.83-4.51); Lymphocyte % 6.2 % (19-41); Mean Corp Hgb Conc 33.2 g/dL (32-36); Mean Corpuscular Hgb 32.2 pg (27.0-32.0); Mean Corpuscular Volume 96.8 fL (80-94); Mean Platelet Vol. 9.3 fl (6.2-12.0); Monocyte# 0.73 X10^3/uL; Monocyte% 7.6 % (0-10); NRBC Flagged by Analyzer 0 % (0-5); Neutrophil # 7.98 X10^3/uL (2.7-7.7); Neutrophil % 83.3 % (47-70); POSITIVE DIFFERENTIAL YES; POSITIVE MORPHOLOGY YES; Platelet Count 131 K/mm3 (150-450); RBC Distribution Width CV 13.7 % (11.6-14.6); RBC Distribution Width SD 49.1 fl (35.1-43.9); Red Blood Count 3.17 M/mm3 (4.6-6.2); White Blood Count 9.6 K/mm3 (4.4-11.0)
[2024-04-28 04:29] LABS: Differential Indicated SCAN CRITERIA MET
[2024-04-28 04:38] LABS: Anion Gap 4 (5-15); BUN 24 mg/dL (7-18); BUN/Creat Ratio 28.3 RATIO (10-20); Calcium,Total 8.5 mg/dL (8.5-10.1); Chloride 111 mmol/L (98-107); Creatinine, Serum 0.85 mg/dL (0.70-1.30); EST Glomerular Filtration Rate 92 mL/min (>60); Est Glom Filt Rate - Afr Amer 112 mL/min (>60); Estimated Creatinine Clearance 67.35 ml/min; Glucose 90 mg/dL (74-106); Magnesium 1.6 mg/dL (1.6-2.6); Phosphorus 2.4 mg/dL (2.5-4.9); Potassium 3.9 mmol/L (3.5-5.1); Sodium Level 140 mmol/L (136-145)
[2024-04-28 04:50] LABS: Differential Comment SCANNED
--- NOTE | 2024-04-28 06:22 | PCM.PN.HOSP ---
Reason for Visit Reason for Visit: Diagnoses Sepsis, unspecified organism (04/26/24) Urinary tract infection, site not specified (04/26/24) Bacteremia (04/26/24) Subjective Subjective Patient with no acute events overnight per self and per nursing report. Patient's remained clinically stable and improved. Patient transition from ICU to medical surgical status and transferred to medical surgical floor without issue. Patient notes he is feeling improved since initial ED arrival though still weak and fatigued. Discussed plan of care which included continued antibiotic therapy especially given likely the same organism is growing in the blood but still awaiting final blood cultures on antibiotic sensitive to current urinary tract infection. Patient family reports that he is very weak and is requesting that patient be transitioned following clinical stability once appropriate to nursing facility for ongoing therapies. Patient denies fevers, chills, nausea, emesis, abdominal pain, chest pain or dyspnea. Objective Data Objective Data Vital Signs: Vital Signs Temp Pulse Resp BP Pulse Ox O2 Del Method O2 Flow Rate 99.8 F H 80 14 110/56 L 96 Room Air 2 04/28/24 04:00 04/28/24 04:00 04/28/24 04:00 04/28/24 04:00 04/28/24 04:00 04/28/24 04:00 04/27/24 08:34 Oxygen Flow Rate (L/min) 2 Oxygen Delivery Method Room Air Weight: 151 lb 7.321 oz Body Mass Index (BMI) 21.7 Intake & Output: Intake and Output for Last 24 Hours 04/26/24 04/27/24 04/28/24 23:59 23:59 23:59 Intake Total 3350 / 3350 2923.3333 / 2923.3333 Output Total 325 / 375 1225 / 1825 1425 / 1425 Balance 3025 / 2975 1698.3333 / 1098.3333 -1425 / -1425 Lab / Micro Data 04/28/24 04:15 04/28/24 04:15 Labs: Laboratory Results - last 24 hr 04/28/24 04:15: WBC 9.6, RBC 3.17 L, Hgb 10.2 L, Hct 30.7 L, MCV 96.8 H, MCH 32.2 H, MCHC 33.2, RDW Std Deviation 49.1 H, RDW Coeff of Patricia 13.7, Plt Count 131 L, MPV 9.3, Immature Gran % (Auto) 0.900, Neut % (Auto) 83.3 H, Lymph % (Auto) 6.2 L, [place] % (Auto) 7.6, Eos % (Auto) 1.6, Baso % (Auto) 0.4, Absolute Neuts (auto) 8.0 H, Absolute Lymphs (auto) 0.59 L, Nucleated RBC % 0, Differential Comment SCANNED, Sodium 140, Potassium 3.9, Chloride 111 H, Carbon Dioxide 25.0, Anion Gap 4 L, BUN 24 H, Creatinine 0.85, Estim Creat Clear Calc 67.35, Est GFR (MDRD) Af Amer 112, Est GFR (MDRD) Non-Af 92, BUN/Creatinine Ratio 28.3 H, Glucose 90, Calcium 8.5, Phosphorus 2.4 L, Magnesium 1.6 Micro: Microbiology 04/26/24 15:09 Urine, Catheterized Urine Culture - Preliminary 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 04/26/24 14:44 Blood Culture (Wb) - Anticubital Left Blood Culture - Preliminary 04/26/24 14:45 Blood Culture (Wb) - Right Forearm Blood Culture - Preliminary 04/26/24 18:30 Nasal Secretion MRSA (PCR) - Final 04/26/24 19:10 Mucosa - Nasopharyngeal Respiratory Panel (PCR) - Final 04/26/24 14:54 Mucosa - Nose SARS-CoV-2, Influenza & RSV (PCR) - Final Physical Exam Narrative Physical Examination: General: Awake, alert, oriented to self, place and some recent events, less confused than day prior, remains cooperative, seated upright in the MS bed, fatigued, notes feeling improved from recent ED initial presentation. Skin: Normal color, normal turgor, no icterus, no cyanosis. HEENT: AT/NC, EOMI, PERRLA, MMM. Lungs: Mildly diminished, greater bases, proper effort, no rales, ronchi or wheezing. Heart: Regular rate and rhythm; no gallop, rub audible. Abdomen: Soft, and habitus, NTTP, ND, normal BS. Extremities: No cyanosis, clubbing or edema, evidence of muscle loss Neurological: Patient awake, alert, oriented as noted, cognitive function improving but still some mild confusion, not 100% baseline intact; pupils equally reactive to light and accommodation, cranial nerves grossly normal, moving all 4 extremities, no focal deficits, strength improving but remains severely globally decreased. Psychiatric: Affect appears flat, masked facies evident, bradykinesia, no acute evidence of depressive or anxiety feelings. Assessment & Plan Assessment/Plan (1) Gram-negative bacteremia: (2) Acute UTI: PLAN: Plan The patient is an 78 y/o M w/ PMHx: Parkinson's disease, CAD/ischemic cardiomyopathy s/p CABG 1994 and PCI 2009, HTN, HLD, PSVT s/p AICD/cardiac resynchronization therapy pacemaker, HFrEF, BPH with obstructive pathology, Anxiety and Depression, Chronic anemia, CKD stage II per GFR trending who presents to the [facility] ED on 04/26/24 with history of hematuria with decreased responsiveness and worsening weakness prompting to bring patient into the ED for further evaluation. #1. Acute Encephalopathy secondary to Acute sepsis (urinary tract infection, febrile, tachycardic, tachypneic, hypoxic, decreased responsiveness/encephalopathy, lactic acidosis) secondary to Acute GNR Bacteremia (likely Klebsiella pneumoniae but Bld Cx finalization still pending) related to Acute Klebsiella pneumoniae Complicated Urinary Tract Infection: Initially admitted to the ICU, s/p 30 cc/kg IV fluids per sepsis protocol with BP responsive, ICU followed, family/HCPOA decision for no central line/pressor therapy usage, monitored I/Os, continued IV Rocephin w/ transition as able pending sensitivities and speciation, Bld Cx w/ GN bacteremia evident, transitioned 04/27/24 to [place] standard, 04/28/[address] [place] transfer orders. PT/OT/case management consulted for discharge planning. Will need skilled facility per family and patient requested discharge. If continued improvement will plan de-escalation of midodrine 04/29/24. #2. Acute hypoxia, potentially multifactorial secondary to #1 and noted mild bibasilar atelectasis on lower thorax on CT abdomen and pelvis: Will maintain on oxygen with wean as tolerated to room air, PRN albuterol, HOB, IS parameters, full respiratory viral pending to be cautious additionally. #3. Acutely elevated creatinine/Acute renal insufficiency on Chronic Kidney Disease Stage II per GFR trending: Admission BUN/Cr 23/1.38, GFR 53, baseline renal function primarily 0.8-1.2 but has vacillated, most recently prior to this 02/06/2024 creatinine 1.16, and GFR primarily low 60 range, repeat BMP in AM. #4. Questionable rectal impaction w/ severe constipation: Noted on CT, initiated on bowel regimen with enema, oral regimen if appropriate. #5. CAD: Status post remote CABG 1994 and PCI 2009 approximately, continue aspirin, statin, holding metoprolol and ramipril given hypotension, add back once clinically appropriate. #6. HFrEF, chronic: We will continue patient aspirin, statin, holding metoprolol, ramipril, spironolactone and Lasix given hypotension, judiciously hydrating given history, add back medication once clinically appropriate. Most recent echocardiogram noted 08/22/2023 with mildly dilated LV, EF 30%, LA moderately enlarged, mild to moderate MVI, mild to moderate TBI. #7. Hypertension: Given presentation with hypotension and IV fluid necessity we will hold patient hypertensive regimen, resume once clinically appropriate, judiciously hydrating given underlying heart failure history concurrently. #8. Hyperlipidemia: We will continue patient home statin therapy. #9. PSVT: Status post AICD/cardiac resynchronization therapy pacemaker, encourage continued follow-up with cardiology as previously arranged and interrogation as previously arranged. #10. Chronic macrocytic anemia: Admission hemoglobin 12.5, MCV 95.7, baseline hemoglobin primarily 10-11, 04/28/24 Hgb 10.7, stable, continue to trend. #11. Mild Thrombocytopenia: Admission Plts 173, decreased w/ 04/27/24 Plt 146, now 04/28/24 Plts 131, likely responsive with septic presentation, continue to trend CBC. #12. Parkinson disease: Complicates presentation, continue patient home Sinemet regimen, fall precautions, PT/OT/case management consulted for discharge planning. #13. Anxiety and depression: Will continue patient home mirtazapine home regimen. Will cautiously continue his anxiolytics to avoid withdrawal given timeline of usage but hold for sedation. #14. BPH with obstructive pathology: We will continue patient on Flomax and finasteride regimen. #15. DVT prophylaxis: Lovenox. #16. CODE status: Patient KATHIE is his who is present and living will is currently in place. DNR-CCA, no intubation. No central line and pressor usage. Charges/Coding Visit Charges Inpatient E&M: 36549 Init Hosp L2
[2024-04-28] MEDS: Midodrine HCl 5 MG Tablet 10 MG PO ×3 (09:16→17:31)
[2024-04-28] MEDS: Carbidopa/Levodopa 25/100 Tablet PO ×4 (09:16→21:29)
[2024-04-28] MEDS: Ascorbic Acid 500 MG Tablet PO (09:17)
[2024-04-28] MEDS: Tamsulosin HCl 0.4 MG Capsule PO (09:17)
[2024-04-28] MEDS: Aspirin E.C. 81 MG Tablet PO (09:17)
[2024-04-28] MEDS: Enoxaparin 40 MG/0.4 ML Syringe SC (09:17)
[2024-04-28] MEDS: Mirtazapine 30 MG Tablet PO (09:18)
[2024-04-28] MEDS: Polyethylene Glycol 3350 17 GM PACKET PO (09:18)
[2024-04-28] MEDS: Finasteride 5 MG Tablet PO (09:19)
[2024-04-28] MEDS: LORazepam 0.5 MG Tablet PO ×4 (09:21→21:29)
[2024-04-28 10:00] VITALS: BP 121/74; PULSE 84; RESP 16; TEMP 36.9; O2SAT 96
--- NOTE | 2024-04-28 11:10 | CASEMGMT ---
Discharge Planning A list of?SNF providers including quality and resource use data and consistent with the patient's preferred geographic region, medical needs, and insurance network was created in [employer] Guide.? This list was provided to the SW. Shweta Landa Discharge Planning Asst.
--- NOTE | 2024-04-28 11:33 | CASEMGMT ---
LEORA spoke with [facility] this am and they would like to re-evaluate patient at [facility] before he is discharged. LEORA notified MS3 SW and green sheet will be put on chart. Plan: Return home on [facility] after they re-evaluate patient. Malena Urbano PRICING MANAGER SEBASTIÁN
[2024-04-28 11:38] VITALS: O2SAT 95
[2024-04-28] MEDS: Ceftriaxone 1 GM/50 ML BAG IV (11:54)
--- NOTE | 2024-04-28 11:58 | CASEMGMT ---
Social Work- SW met with pt, , and family to discuss goals of care. A list of SNF providers including quality and resource use data and consistent with the patient?s preferred geographic region, medical needs, and insurance network were provided from the [employer] Guide. Pt and son asked appropriate questions regarding process for SNF placement and insurance authorizations. Pt expressed feeling overwhelmed with making a decision. Pt son asked SW about IPU, as hospice previously mentioned IPU to family. Pt agreeable to having hospice worker come and discuss IPU and resumption of hospice vs SNF. SW called hospice and faxed clinicals. Pt and family updated. SW remains available to follow. RAZA Almodovar
--- NOTE | 2024-04-28 12:57 | CASEMGMT ---
Addendum entered by Mayuri Zhou 04/28/24 16:38: SW updated pt and pt of acceptance at [facility], as well as precert status. LEORA remains available to follow. RAZA Almodovar Original Note: Social Work- Pt family decided on SNF for skilled with resumptoin of home hospice at d/c from SNF. FOC is [facility]. DCA notified of referral request. LEORA remains available to follow. RAZA Almodovar
--- NOTE | 2024-04-28 13:40 | CASEMGMT ---
Addendum entered by Shweta Landa 04/30/24 09:15: [facility] has accepted and will submit for precert. Updates sent. Shweta Landa DC Planning Asst. Original Note: Discharge Planning Referral sent to [facility]. Shweta Landa DC Planning Asst.
[2024-04-28 16:00] VITALS: BP 139/79; PULSE 78; RESP 18; TEMP 36.8; O2SAT 96
[2024-04-28] MEDS: Menthol/Lanolin/Calamine/Znox 113 GM Tube 1 APPLIC TOPICAL ×2 (17:31→21:34)
[2024-04-28 20:09] VITALS: O2SAT 95
[2024-04-28 21:21] VITALS: BP 114/74; PULSE 70; RESP 15; TEMP 36.6; O2SAT 98
[2024-04-28] MEDS: Atorvastatin Calcium 80 MG Tablet PO (21:29)
[2024-04-29 05:10] VITALS: BMI 21.7
[2024-04-29 05:35] LABS: Absolute Lymphocyte Count 0.98 X10^3/uL (0.83-4.51); Basophil# 0.03 X10^3/uL; Basophil% 0.4 % (0-1); Eosinophil# 0.12 X10^3/uL; Eosinophils% 1.5 % (0-5); Hematocrit 34.4 % (40-54); Hemoglobin 11.2 g/dL (13.0-16.5); Lymphocyte # 0.98 X10^3/ul (0.83-4.51); Lymphocyte % 12.6 % (19-41); Mean Corp Hgb Conc 32.6 g/dL (32-36); Mean Corpuscular Hgb 31.5 pg (27.0-32.0); Mean Corpuscular Volume 96.6 fL (80-94); Mean Platelet Vol. 9.2 fl (6.2-12.0); Monocyte# 0.56 X10^3/uL; Monocyte% 7.2 % (0-10); NRBC Flagged by Analyzer 0 % (0-5); Neutrophil # 6.02 X10^3/uL (2.7-7.7); Neutrophil % 77.5 % (47-70); Platelet Count 148 K/mm3 (150-450); RBC Distribution Width CV 13.7 % (11.6-14.6); RBC Distribution Width SD 49.2 fl (35.1-43.9); Red Blood Count 3.56 M/mm3 (4.6-6.2); White Blood Count 7.8 K/mm3 (4.4-11.0)
[2024-04-29 05:44] VITALS: BP 140/91; PULSE 88; RESP 15; TEMP 36.6; O2SAT 99
--- NOTE | 2024-04-29 06:27 | PCM.PN.HOSP ---
Reason for Visit Reason for Visit: Diagnoses Sepsis, unspecified organism (04/26/24) Urinary tract infection, site not specified (04/26/24) Bacteremia (04/26/24) Subjective Subjective Patient with no acute events overnight per self and per nursing report. He notes he still feels fatigued and weak but otherwise feels improved since initial presentation to the hospital. Discussed plan of care that patient family and spouse are concerned about him returning to home with plan for ongoing PT and OT assessments with transition to transitional versus skilled facility once clinically appropriate and patient is amenable to this. Patient denies fevers, chills, nausea, emesis, abdominal pain, chest pain or dyspnea. Objective Data Objective Data Vital Signs: Vital Signs Temp Pulse Resp BP Pulse Ox O2 Del Method O2 Flow Rate 97.9 F 88 15 140/91 H 99 Room Air 2 04/29/24 05:44 04/29/24 05:44 04/29/24 05:44 04/29/24 05:44 04/29/24 05:44 04/29/24 05:44 04/27/24 08:34 Oxygen Flow Rate (L/min) 2 Oxygen Delivery Method Room Air Weight: 151 lb 14.376 oz Body Mass Index (BMI) 21.7 Intake & Output: Intake and Output for Last 24 Hours 04/27/24 04/28/24 04/29/24 23:59 23:59 23:59 Intake Total 2923.3333 / 2923.3333 1200 / 1200 Output Total 1225 / 1825 2325 / 2975 1150 / 1150 Balance 1698.3333 / 1098.3333 -1125 / -1775 -1150 / -1150 Lab / Micro Data 04/29/24 05:12 04/29/24 05:50 Labs: Laboratory Results - last 24 hr 04/29/24 05:12: WBC 7.8, RBC 3.56 L, Hgb 11.2 L, Hct 34.4 L, MCV 96.6 H, MCH 31.5, MCHC 32.6, RDW Std Deviation 49.2 H, RDW Coeff of Patricia 13.7, Plt Count 148 L, MPV 9.2, Immature Gran % (Auto) 0.800, Neut % (Auto) 77.5 H, Lymph % (Auto) 12.6 L, [place] % (Auto) 7.2, Eos % (Auto) 1.5, Baso % (Auto) 0.4, Absolute Neuts (auto) 6.0, Absolute Lymphs (auto) 0.98, Nucleated RBC % 0 Micro: Microbiology 04/26/24 14:45 Blood Culture (Wb) - Right Forearm Blood Culture - Preliminary GNR lactose oracle database manager 04/26/24 14:44 Blood Culture (Wb) - Anticubital Left Blood Culture - Preliminary GNR lactose oracle database manager 04/26/24 15:09 Urine, Catheterized Urine Culture - Final Klebsiella pneumoniae sp pneum 04/26/24 18:30 Nasal Secretion MRSA (PCR) - Final 04/26/24 19:10 Mucosa - Nasopharyngeal Respiratory Panel (PCR) - Final 04/26/24 14:54 Mucosa - Nose SARS-CoV-2, Influenza & RSV (PCR) - Final Physical Exam Narrative Physical Examination: General: Awake, alert, oriented to self, place and events from day prior, seated upright in the [place] bedside chair, no acute distress, notes feeling weak but otherwise improving. Skin: Normal color, normal turgor, no icterus, no cyanosis except occasional stage ecchymoses, abrasions. HEENT: AT/NC, EOMI, PERRLA, MMM. Lungs: Mildly diminished, greater bases, proper effort, no rales, ronchi or wheezing. Heart: Regular rate and rhythm; no gallop, rub audible. Abdomen: Soft, and habitus, NTTP, ND, normal BS. Extremities: No cyanosis, clubbing or edema, evidence of muscle loss Neurological: Patient awake, alert, oriented as noted, cognitive function improving but still some mild confusion, not 100% baseline intact; pupils equally reactive to light and accommodation, cranial nerves grossly normal, moving all 4 extremities, no focal deficits, strength improving but remains moderately to severely globally decreased. Psychiatric: Affect appears flat, fatigued, no acute evidence of depressive or anxiety feelings. Assessment & Plan Assessment/Plan (1) Gram-negative bacteremia: (2) Acute UTI: PLAN: Plan The patient is an 78 y/o M w/ PMHx: Parkinson's disease, CAD/ischemic cardiomyopathy s/p CABG 1994 and PCI 2009, HTN, HLD, PSVT s/p AICD/cardiac resynchronization therapy pacemaker, HFrEF, BPH with obstructive pathology, Anxiety and Depression, Chronic anemia, CKD stage II per GFR trending who presents to the [facility] ED on 04/26/24 with history of hematuria with decreased responsiveness and worsening weakness prompting to bring patient into the ED for further evaluation. #1. Acute Encephalopathy secondary to Acute sepsis (urinary tract infection, febrile, tachycardic, tachypneic, hypoxic, decreased responsiveness/encephalopathy, lactic acidosis) secondary to Acute GNR lactose oracle database manager Bacteremia 2/2 Cx (likely Klebsiella pneumoniae but Bld Cx finalization still pending) related to Acute Klebsiella pneumoniae Complicated Urinary Tract Infection: Initially admitted to the ICU, s/p 30 cc/kg IV fluids per sepsis protocol with BP responsive, ICU followed, family/HCPOA decision for no central line/pressor therapy usage, monitored I/Os, continued IV Rocephin especially given sensitive on UCx w/ blood Cx finalization pending w/ transition as able pending sensitivities and speciation, Bld Cx w/ GN bacteremia evident, transitioned 04/27/24 to [place] standard. PT/OT/case management consulted for discharge planning. Will need skilled facility per family and patient requested discharge. BP has remained normal, 04/29/2024 de-escalation off midodrine therapy with close continued BP monitoring. #2. Acute hypoxia, potentially multifactorial secondary to #1 and noted mild bibasilar atelectasis on lower thorax on CT abdomen and pelvis: Will maintain on oxygen with wean as tolerated to room air, PRN albuterol, HOB, IS parameters, full respiratory viral pending to be cautious additionally. #3. Acutely elevated creatinine/Acute renal insufficiency on Chronic Kidney Disease Stage II per GFR trending: Admission BUN/Cr 23/1.38, GFR 53, baseline renal function primarily 0.8-1.2 but has vacillated, most recently prior to this 02/06/2024 creatinine 1.16, and GFR primarily low 60 range, 04/29/24 BUN/Cr 20/0.92, GFR 84, repeat BMP in AM. #4. Questionable rectal impaction w/ severe constipation: Noted on CT, initiated on bowel regimen with enema, oral regimen if appropriate. #5. CAD: Status post remote CABG 1994 and PCI 2009 approximately, continue aspirin, statin, held metoprolol and ramipril given hypotension but BP is started to recover 04/29/2024 thus we will continue to monitor for re-addition. #6. HFrEF, chronic: We will continue patient aspirin, statin, holding metoprolol, ramipril, spironolactone and Lasix given hypotension but BP is started to recover 04/29/2024 thus we will continue to monitor for re-addition, judiciously hydrating given history, add back medication once clinically appropriate. Most recent echocardiogram noted 08/22/2023 with mildly dilated LV, EF 30%, LA moderately enlarged, mild to moderate MVI, mild to moderate TBI. #7. Hypertension: Given presentation with hypotension and IV fluid held patient hypertensive regimen but BP is started to recover 04/29/2024 thus we will continue to monitor for re-addition. #8. Hyperlipidemia: We will continue patient home statin therapy. #9. PSVT: Status post AICD/cardiac resynchronization therapy pacemaker, encourage continued follow-up with cardiology as previously arranged and interrogation as previously arranged. #10. Chronic macrocytic anemia: Admission hemoglobin 12.5, MCV 95.7, baseline hemoglobin primarily 10-11, 04/29/2024 hemoglobin 11.2, stable, continue to trend. #11. Mild Thrombocytopenia: Admission Plts 173, decreased w/ 04/27/24 Plt 146->04/28/24 Plts 131, likely responsive with septic presentation, 04/29/2024 platelet continue to improve 148, continue to trend CBC. #12. Parkinson disease: Complicates presentation, continue patient home Sinemet regimen, fall precautions, PT/OT/case management consulted for discharge planning. #13. Anxiety and depression: Will continue patient home mirtazapine home regimen. Will cautiously continue his anxiolytics to avoid withdrawal given timeline of usage but hold for sedation. #14. BPH with obstructive pathology: We will continue patient on Flomax and finasteride regimen. #15. DVT prophylaxis: Lovenox. #16. CODE status: Patient HCPOA is his who is present and living will is currently in place. DNR-CCA, no intubation. No central line and pressor usage. Charges/Coding Visit Charges Inpatient E&M: 05397 Subs Hosp L2
[2024-04-29 06:42] LABS: ALB/GLOB Ratio 0.8 RATIO (0.9-2.4); AST(SGOT) 33 U/L (15-37); Alanine Aminotransfer ALT/SGPT 17 U/L (16-61); Albumin, Serum 2.7 g/dL (3.2-5.0); Alkaline Phosphatase 124 U/L (45-117); Anion Gap 5 (5-15); BUN 20 mg/dL (7-18); BUN/Creat Ratio 21.6 RATIO (10-20); Calcium,Total 8.6 mg/dL (8.5-10.1); Chloride 110 mmol/L (98-107); Creatinine, Serum 0.92 mg/dL (0.70-1.30); EST Glomerular Filtration Rate 84 mL/min (>60); Est Glom Filt Rate - Afr Amer 101 mL/min (>60); Estimated Creatinine Clearance 62.41 ml/min; Globulin 3.2 g/dL (2.2-4.2); Glucose 103 mg/dL (74-106); Protein, Total 5.9 g/dL (6.4-8.2); Sodium Level 140 mmol/L (136-145)
[2024-04-29] MEDS: LORazepam 0.5 MG Tablet PO ×4 (10:01→20:49)
[2024-04-29] MEDS: Menthol/Lanolin/Calamine/Znox 113 GM Tube 1 APPLIC TOPICAL ×4 (10:02→20:22)
[2024-04-29] MEDS: Aspirin E.C. 81 MG Tablet PO (10:02)
[2024-04-29] MEDS: Tamsulosin HCl 0.4 MG Capsule PO (10:02)
[2024-04-29] MEDS: Enoxaparin 40 MG/0.4 ML Syringe SC (10:02)
[2024-04-29] MEDS: Polyethylene Glycol 3350 17 GM PACKET PO (10:02)
[2024-04-29] MEDS: Finasteride 5 MG Tablet PO (10:03)
[2024-04-29] MEDS: Carbidopa/Levodopa 25/100 Tablet PO ×4 (10:03→20:22)
[2024-04-29] MEDS: Ascorbic Acid 500 MG Tablet PO (10:04)
[2024-04-29] MEDS: Ceftriaxone 1 GM/50 ML BAG IV (10:04)
[2024-04-29] MEDS: Mirtazapine 30 MG Tablet PO (10:05)
[2024-04-29 10:43] VITALS: BP 137/83; PULSE 78; RESP 18; TEMP 36.8; O2SAT 99
[2024-04-29 15:24] VITALS: BP 120/74; PULSE 75; RESP 18; TEMP 37.1; O2SAT 97
[2024-04-29 20:20] VITALS: BP 104/67; PULSE 87; RESP 16; TEMP 36.3; O2SAT 97
[2024-04-29] MEDS: Atorvastatin Calcium 80 MG Tablet PO (20:22)
[2024-04-29] MEDS: MELATONIN 10 MG TABLET PO (20:22)
[2024-04-29] MEDS: 0.9% Saline Lock 10 ML Syringe IV (20:48)
[2024-04-30 01:05] VITALS: BP 105/61; PULSE 83; RESP 16; TEMP 36.6; O2SAT 95
[2024-04-30 04:10] VITALS: BP 125/75; PULSE 85; RESP 16; TEMP 36.5; O2SAT 94
[2024-04-30] MEDS: Senna/Docusate Sodium 1 Tablet 2 TABLET PO (04:11)
[2024-04-30 05:09] LABS: Absolute Lymphocyte Count 0.83 X10^3/uL (0.83-4.51); Absolute Neutrophil Count 3.6 X10^3/uL (2.0-7.7); Basophil# 0.03 X10^3/uL; Basophil% 0.6 % (0-1); Eosinophil# 0.19 X10^3/uL; Eosinophils% 3.7 % (0-5); Hematocrit 33.2 % (40-54); Hemoglobin 10.8 g/dL (13.0-16.5); Lymphocyte # 0.83 X10^3/ul (0.83-4.51); Lymphocyte % 16.2 % (19-41); Mean Corp Hgb Conc 32.5 g/dL (32-36); Mean Corpuscular Hgb 31.6 pg (27.0-32.0); Mean Corpuscular Volume 97.1 fL (80-94); Mean Platelet Vol. 9.4 fl (6.2-12.0); Monocyte# 0.46 X10^3/uL; NRBC Flagged by Analyzer 0 % (0-5); Neutrophil # 3.56 X10^3/uL (2.7-7.7); Neutrophil % 69.7 % (47-70); Platelet Count 146 K/mm3 (150-450); RBC Distribution Width CV 13.6 % (11.6-14.6); RBC Distribution Width SD 48.3 fl (35.1-43.9); Red Blood Count 3.42 M/mm3 (4.6-6.2); White Blood Count 5.1 K/mm3 (4.4-11.0)
[2024-04-30 05:23] LABS: ALB/GLOB Ratio 0.8 RATIO (0.9-2.4); AST(SGOT) 29 U/L (15-37); Alanine Aminotransfer ALT/SGPT 16 U/L (16-61); Albumin, Serum 2.4 g/dL (3.2-5.0); Alkaline Phosphatase 129 U/L (45-117); Anion Gap 5 (5-15); BUN 13 mg/dL (7-18); BUN/Creat Ratio 15.9 RATIO (10-20); Calcium,Total 8.7 mg/dL (8.5-10.1); Chloride 109 mmol/L (98-107); Creatinine, Serum 0.82 mg/dL (0.70-1.30); EST Glomerular Filtration Rate 96 mL/min (>60); Est Glom Filt Rate - Afr Amer 116 mL/min (>60); Estimated Creatinine Clearance 70.02 ml/min; Globulin 3.1 g/dL (2.2-4.2); Glucose 111 mg/dL (74-106); Potassium 3.9 mmol/L (3.5-5.1); Protein, Total 5.5 g/dL (6.4-8.2); Sodium Level 140 mmol/L (136-145)
[2024-04-30 06:00] VITALS: BMI 21.8
--- NOTE | 2024-04-30 07:31 | PCM.PN.HOSP ---
Reason for Visit Reason for Visit: Diagnoses Sepsis, unspecified organism (04/26/24) Urinary tract infection, site not specified (04/26/24) Bacteremia (04/26/24) Subjective Subjective Patient with no acute events overnight per self and per nursing report. He remains on room air and strongly discussed need for ongoing I-S hourly from awakening to bedtime to which she notes understanding. Discussed plan of care with both him and his with ongoing therapy evaluations, awaiting choice of facility with precertification and plan for transition to transitional versus skilled setting for ongoing PT and OT prior to transition back to home. Patient is eager for home transition but understands need for ongoing therapies in a skilled setting. He notes he is feeling better but still very fatigued. Patient denies fevers, chills, nausea, emesis, abdominal pain, chest pain or dyspnea. Objective Data Objective Data Vital Signs: Vital Signs Temp Pulse Resp BP Pulse Ox O2 Del Method O2 Flow Rate 97.7 F L 85 16 125/75 H 94 Room Air 2 04/30/24 04:10 04/30/24 04:10 04/30/24 04:10 04/30/24 04:10 04/30/24 04:10 04/30/24 04:10 04/27/24 08:34 Oxygen Flow Rate (L/min) 2 Oxygen Delivery Method Room Air Weight: 152 lb 5.431 oz Body Mass Index (BMI) 21.8 Intake & Output: Intake and Output for Last 24 Hours 04/28/24 04/29/24 04/30/24 23:59 23:59 23:59 Intake Total 1200 / 1200 1400 / 1600 300 / 300 Output Total 2325 / 2975 2500 / 2900 750 / 750 Balance -1125 / -1775 -1100 / -1300 -450 / -450 Lab / Micro Data 04/30/24 04:40 04/30/24 04:40 Labs: Laboratory Results - last 24 hr 04/30/24 04:40: WBC 5.1, RBC 3.42 L, Hgb 10.8 L, Hct 33.2 L, MCV 97.1 H, MCH 31.6, MCHC 32.5, RDW Std Deviation 48.3 H, RDW Coeff of Patricia 13.6, Plt Count 146 L, MPV 9.4, Immature Gran % (Auto) 0.800, Neut % (Auto) 69.7, Lymph % (Auto) 16.2 L, [place] % (Auto) 9.0, Eos % (Auto) 3.7, Baso % (Auto) 0.6, Absolute Neuts (auto) 3.6, Absolute Lymphs (auto) 0.83, Nucleated RBC % 0, Sodium 140, Potassium 3.9, Chloride 109 H, Carbon Dioxide 26.0, Anion Gap 5, BUN 13, Creatinine 0.82, Estim Creat Clear Calc 70.02, Est GFR (MDRD) Af Amer 116, Est GFR (MDRD) Non-Af 96, BUN/Creatinine Ratio 15.9, Glucose 111 H, Calcium 8.7, Total Bilirubin 0.50, AST 29, ALT 16, Alkaline Phosphatase 129 H, Total Protein 5.5 L, Albumin 2.4 L, Globulin 3.1, Albumin/Globulin Ratio 0.8 L Micro: Microbiology 04/26/24 14:45 Blood Culture (Wb) - Right Forearm Blood Culture - Final GNR lactose sole leveler 04/26/24 14:44 Blood Culture (Wb) - Anticubital Left Blood Culture - Final Klebsiella pneumoniae sp pneum 04/26/24 15:09 Urine, Catheterized Urine Culture - Final Klebsiella pneumoniae sp pneum 04/26/24 18:30 Nasal Secretion MRSA (PCR) - Final 04/26/24 19:10 Mucosa - Nasopharyngeal Respiratory Panel (PCR) - Final 04/26/24 14:54 Mucosa - Nose SARS-CoV-2, Influenza & RSV (PCR) - Final Physical Exam Narrative Physical Examination: General: Awake, alert, oriented to self, place and events from day prior, seated upright in the [place] bedside chair, no acute distress, fatigued appearing, visiting. Skin: Normal color, normal turgor, no icterus, no cyanosis except occasional stage ecchymoses, abrasions. HEENT: AT/NC, EOMI, PERRLA, MMM. Lungs: Mildly diminished, greater bases, proper effort, no rales, ronchi or wheezing. Heart: Regular rate and rhythm; no gallop, rub audible. Abdomen: Soft, and habitus, NTTP, ND, normal BS. Extremities: No cyanosis, clubbing or edema, evidence of muscl an fat e loss. Neurological: Patient awake, alert, oriented as noted, cognitive function improving but still some mild confusion, not 100% baseline intact; pupils equally reactive to light and accommodation, cranial nerves grossly normal, moving all 4 extremities, no focal deficits, strength improving but remains moderately to severely globally decreased. Psychiatric: Affect appears fatigued, still flat but will smile with discussions, no acute evidence of depressive or anxiety feelings. Assessment & Plan Assessment/Plan (1) Gram-negative bacteremia: (2) Acute UTI: PLAN: Plan The patient is an 78 y/o M w/ PMHx: Parkinson's disease, CAD/ischemic cardiomyopathy s/p CABG 1994 and PCI 2009, HTN, HLD, PSVT s/p AICD/cardiac resynchronization therapy pacemaker, HFrEF, BPH with obstructive pathology, Anxiety and Depression, Chronic anemia, CKD stage II per GFR trending who presents to the [facility] ED on 04/26/24 with history of hematuria with decreased responsiveness and worsening weakness prompting to bring patient into the ED for further evaluation. #1. Acute Encephalopathy secondary to Acute sepsis (urinary tract infection, febrile, tachycardic, tachypneic, hypoxic, decreased responsiveness/encephalopathy, lactic acidosis) secondary to Acute Klebsiella pneumoniae Bacteremia 2/2 Cx secondary to Acute Klebsiella pneumoniae Complicated Urinary Tract Infection: Initially admitted to the ICU, s/p 30 cc/kg IV fluids per sepsis protocol with BP responsive, ICU followed, family/HCPOA decision for no central line/pressor therapy usage, monitored I/Os, continued IV Rocephin especially given sensitive on UCx/Bld Cx, transitioned 04/27/24 to [place] standard. Will need skilled facility per family and patient requested discharge with pending place choice/insurance approval/recertification. BP has remained normal, 04/29/2024 de-escalation off midodrine therapy with close continued BP monitoring with stable BPs following. PT/OT/case management consulted for discharge planning. #2. Acute hypoxia, potentially multifactorial secondary to #1 and noted mild bibasilar atelectasis on lower thorax on CT abdomen and pelvis: Maintained on oxygen with wean as tolerated to room air 04/30/24 on room air and has remained on room air since, PRN albuterol, HOB, IS parameters, full respiratory v panel iral negative. #3. Acutely elevated creatinine/Acute renal insufficiency on Chronic Kidney Disease Stage II per GFR trending: Admission BUN/Cr 23/1.38, GFR 53, baseline renal function primarily 0.8-1.2 but has vacillated, most recently prior to this 02/06/2024 creatinine 1.16, and GFR primarily low 60 range, 04/30/24 BUN/Cr 13/0.82, GFR 116, repeat BMP in AM. #4. Questionable rectal impaction w/ severe constipation: Noted on CT, initiated on bowel regimen with enema, oral regimen in addition, improved. #5. CAD: Status post remote CABG 1994 and PCI 2009 approximately, continue aspirin, statin, held metoprolol and ramipril given hypotension but BP is started to recover 04/29/2024 thus we will continue to monitor for re-addition. #6. HFrEF, chronic: We will continue patient aspirin, statin, holding metoprolol, ramipril, spironolactone and Lasix given hypotension, de-escalated off midodrine 04/29/2024. 04/30/2024 BP continues to recover. Most recent echocardiogram noted 08/22/2023 with mildly dilated LV, EF 30%, LA moderately enlarged, mild to moderate MVI, mild to moderate TBI. #7. Hypertension: Given presentation with hypotension and IV fluid held patient hypertensive regimen but BP is started to recover 04/29/2024 thus we will continue to monitor for re-addition. #8. Hyperlipidemia: We will continue patient home statin therapy. #9. PSVT: Status post AICD/cardiac resynchronization therapy pacemaker, encourage continued follow-up with cardiology as previously arranged and interrogation as previously arranged. #10. Chronic macrocytic anemia: Admission hemoglobin 12.5, MCV 95.7, baseline hemoglobin primarily 10-11, 04/30/2024 hemoglobin 10.8, stable, continue to trend. #11. Mild Thrombocytopenia: Admission Plts 173, decreased w/ 04/27/24 Plt 146->04/28/24 Plts 131, likely responsive with septic presentation, 04/30/2024 platelet 146, continue to trend CBC. #12. Parkinson disease: Complicates presentation, continue patient home Sinemet regimen, fall precautions, PT/OT/case management consulted for discharge planning. #13. Anxiety and depression: Will continue patient home mirtazapine home regimen. Will cautiously continue his anxiolytics to avoid withdrawal given timeline of usage but hold for sedation. #14. BPH with obstructive pathology: We will continue patient on Flomax and finasteride regimen. #15. Severe protein calorie malnutrition: Evidenced by obvious muscle and fat loss, poor oral intake in the setting of acute infection additionally, nutrition consulted and following, supplementations per their discretion #16. DVT prophylaxis: Lovenox. #17. CODE status: Patient KATHIE is his who is present and living will is currently in place. DNR-CCA, no intubation. No central line and pressor usage. Charges/Coding Visit Charges Inpatient E&M: 09386 Subs Hosp L2
[2024-04-30] MEDS: Menthol/Lanolin/Calamine/Znox 113 GM Tube 1 APPLIC TOPICAL ×2 (08:31→14:02)
[2024-04-30] MEDS: Tamsulosin HCl 0.4 MG Capsule PO (08:31)
[2024-04-30] MEDS: Carbidopa/Levodopa 25/100 Tablet PO ×2 (08:31→14:01)
[2024-04-30] MEDS: Enoxaparin 40 MG/0.4 ML Syringe SC (08:31)
[2024-04-30] MEDS: Aspirin E.C. 81 MG Tablet PO (08:32)
[2024-04-30] MEDS: Ascorbic Acid 500 MG Tablet PO (08:32)
[2024-04-30] MEDS: Finasteride 5 MG Tablet PO (08:32)
[2024-04-30] MEDS: Mirtazapine 30 MG Tablet PO (08:32)
[2024-04-30 08:40] VITALS: BP 123/76; PULSE 77; RESP 18; TEMP 37; O2SAT 93
[2024-04-30] MEDS: LORazepam 0.5 MG Tablet PO ×2 (10:54→14:02)
[2024-04-30] MEDS: Ceftriaxone 1 GM/50 ML BAG IV (10:54)
--- NOTE | 2024-04-30 12:18 | CASEMGMT ---
Discharge Planning [facility] has obtained auth to admit. SW updated. Shweta Landa DC Planning Asst.
[2024-04-30 13:12] VITALS: BP 108/64; PULSE 75; RESP 18; TEMP 36.7; O2SAT 95
--- NOTE | 2024-04-30 13:26 | PCM.TXEXTCAR ---
Diet Diet Order/Speech Therapy: 04/26/24 17:20 Diet: Cardiac - Heart Healthy Food consistency:: Regular Liquid Consistency:: Regular/Thin Type of Dietary Supplement:: Ensure Plus High Protein Diet Comments: 8 oz vanilla ensure plus high protein w/ dinner Routine Orders/Code Status Enema Type: Fleetz Enema Frequency: Daily PRN Suppository Type: Dulcolax 10mg Suppository Frequency: Daily PRN Routine Lab Work: - (Follow-up CBC, BMP in 3-5 days.) Code Status: DNRCC-A (DNR-CCA, no intubation.) DC O2, CPAP, BIPAP needs Home O2 Discharge instructions: No Suggestions for Active Care Change Position every (hours): 2 Hours to sit in a chair: 6 Times a day to sit in chair: 3 Therapies Weight Bearing: Full weight bearing Physical Therapy: Eval and Treat Occupational Therapy: Eval and Treat Problem/Diagnosis (1) Gram-negative bacteremia: Status: Acute Code(s): R78.81 - Bacteremia (2) Acute UTI: Status: Acute Code(s): N39.0 - Urinary tract infection, site not specified Plan DISCHARGE DIAGNOSES: #1. Acute Encephalopathy secondary to Acute sepsis (urinary tract infection, febrile, tachycardic, tachypneic, hypoxic, decreased responsiveness/encephalopathy, lactic acidosis) secondary to Acute Klebsiella pneumoniae Bacteremia 2/2 Cx secondary to Acute Klebsiella pneumoniae Complicated Urinary Tract Infection complicated by BPH with obstructive pathology #2. Acute hypoxia, potentially multifactorial secondary to #1 and noted mild bibasilar atelectasis on lower thorax on CT abdomen and pelvis, resolved #3. Acutely elevated creatinine/Acute renal insufficiency on Chronic Kidney Disease Stage II per GFR trending #4. Questionable rectal impaction w/ severe constipation #5. CAD status post remote CABG 1994 and PCI 2009 approximately #6. HFrEF, chronic #7. Hypertension #8. Hyperlipidemia #9. PSVT status post AICD/cardiac resynchronization therapy pacemaker #10. Chronic macrocytic anemia #11. Mild Thrombocytopenia, suspect reactive given #1 #12. Parkinson disease #13. Anxiety and depression #14. BPH with obstructive pathology #15. Severe protein calorie malnutrition #16. CODE status: Patient KATHIE is his who is present and living will is currently in place. DNR-CCA, no intubation. No central line and pressor usage. Allergies/Procedures Done in Hospital Allergies adhesive tape Allergy (Verified 04/26/24 14:31) NEEDS FOLLOW-UP Procedures: EKG Type of Care/Length of Stay Estimated LOS: Convalescent Care Less Than 30 days Type of Care Needed: Skilled Rehab Potential: Fair Prognosis: Fair Additional Orders/Day of Discharge Additional Orders: [facility] consult at the SNF. Day of Discharge: 04/30/24 Dietary and Speech Recommendations Dietitian Recommendations/Changes: Continue Cardiac diet as ordered Will order 8 oz ensure plus high protein w/ dinner only per pt request Discharge Plan Admission Admit Date/Time: 04/26/24 16:33 Primary Reason for Your Visit: Encephalopathy, Complicated UTI, Bacteremia, Transient hypoxia Attending Provider: Maria Fernanda Wisdom Primary Care Provider: Juan Carlos Joel Consulting Providers: Maria Fernanda Wisdom; Shanel Moses Instructions Patient Instructions: Urinary Tract Infections in Men Additional Instructions / Restrictions: ADDITIONAL DISCHARGE INSTRUCTIONS/CARE PLAN: #1. Acute Encephalopathy secondary to Acute sepsis (urinary tract infection, febrile, tachycardic, tachypneic, hypoxic, decreased responsiveness/encephalopathy, lactic acidosis) secondary to Acute Klebsiella pneumoniae Bacteremia 2/2 Cx secondary to Acute Klebsiella pneumoniae Complicated Urinary Tract Infection: --Initially admitted to the ICU, s/p 30 cc/kg IV fluids per sepsis protocol with BP responsive and eventually once clinically improved transitioned to medical floor. --Treated inpatient with IV Rocephin with Urine culture and Blood Cultures with noted Klebsiella pneumoniae. --You have been transition to oral cefdinir to complete the antibiotic course which is prolonged in this case given the infection was also in the bloodstream. --In the emergency room upon evaluation given sepsis presentation Sheehan catheter was temporarily placed but discontinued upon transition to intermediate facility. --Please continue to monitor for appropriate-urine output to ensure no obstructive process given underlying BPH history. -- Upon admission your blood pressure was low secondary to the infection and all your hypertensive medications were temporarily held. Your blood pressure did improve however it is still low normal thus upon discharge to intermediate facility we have continued to hold these agents and this will need to be followed with continuous blood pressure monitoring at the facility with resumption of your hypertensive regimen once felt clinically appropriate. #2. Acute hypoxia, potentially multifactorial secondary to #1 and noted mild bibasilar atelectasis on lower thorax on CT abdomen and pelvis: -- We strongly encouraged continued activity with out of bed to table with all meals, continue physical and Occupational Therapy assessment as well as aggressive incentive spirometry at least 10 times per hour from 7 AM to ideally 7 PM. #3. Acutely elevated creatinine/Acute renal insufficiency on Chronic Kidney Disease Stage II per GFR trending: --Admission BUN/Cr 23/1.38, GFR 53, baseline renal function primarily 0.8-1.2 but has vacillated, most recently prior to this 02/06/2024 creatinine 1.16, and GFR primarily low 60 range with most recent at day of discharge 04/30/24 BUN/Cr 13/0.82, GFR 116. -- You will have a repeat basic metabolic panel in 3 to 5 days. #4. Questionable rectal impaction w/ severe constipation: --Noted on CT, initiated on bowel regimen with enema, oral regimen in addition with improvement with bowel regimen continued upon transition with adjustments including de-escalation if necessary pending continued response. #15. Severe protein calorie malnutrition: --Evidenced by obvious muscle and fat loss, poor oral intake in the setting of acute infection additionally, nutrition consulted and followed during admission, encourage continued supplementations and nutrition evaluation at skilled facility. ADDITIONAL: --Please continue consultation upon transition to SNF with [facility] given this was revoked upon ED presentation and admission. Discharge Orders/Prescriptions Prescriptions: New atorvastatin 80 mg Tablet 80 mg PO QHS Qty: 0 0RF acetaminophen 325 mg Tablet 650 mg PO Q4H PRN PRN (Reason: Fever, pain 1-02/12) Qty: 0 0RF ascorbic acid (vitamin C) 500 mg Tablet 500 mg PO DAILY Qty: 0 0RF menthol-zinc oxide [Calmoseptine] 0.44-20.6 % Ointment 1 applic topical 4X/DAY Qty: 0 0RF Protocol: *Topical Application Instructions APPLICATION INSTRUCTIONS: apply to affected region melatonin 10 mg Tablet, Sublingual 10 mg PO HS PRN (Reason: insomnia) Qty: 0 0RF cefdinir 300 mg capsule 300 mg PO BID 5 Days Qty: 10 0RF Continued tamsulosin 0.4 mg capsule 0.4 mg PO DAILY mirtazapine 30 mg tablet 30 mg PO DAILY finasteride 5 mg tablet 5 mg PO DAILY aspirin 81 MG tablet 81 mg PO DAILY@0800 carbidopa-levodopa 25-100 mg tablet 2 tab PO 4X/DAY Patient Comments: takes 2 tabs at 0900, 1300, 1700, 2100 Senna Plus 8.6-50 mg capsule 2 tab-cap PO BID lorazepam [Ativan] 0.5 mg tablet 0.5 mg PO 4X/DAY magnesium hydroxide [Milk of Magnesia] 400 mg/5 mL suspension 30 ml PO Q6H PRN (Reason: constipation) albuterol sulfate 90 mcg/actuation HFA aerosol inhaler 2 puff INHALATION Q6H PRN (Reason: shortness of breath or wheezing) Qty: 6.7 0RF (DME) Handicap Placcard See Rx Instructions .Route .MEDSUPPLY Qty: 1 0RF Rx Instructions: Dx: Debility Exp: 07/2028 Held nitroglycerin 0.4 mg tablet, sublingual 0.4 mg SUBLINGUAL Q5M PRN (Reason: Chest Pain) Qty: 25 1RF Hold Instructions: Resume on 05/07/24. Please continue to hold hypertensive regimen and diuretic therapy until BP appropriate. During presentation did have sepsis associated with his urinary tract infection and bacteremia with hold on all of these regimens with improvement of blood pressure but still low normal range. spironolactone 25 mg Tablet 12.5 mg PO DAILY 30 Days Qty: 15 2RF Hold Instructions: Resume on 05/07/24. Please continue to hold hypertensive regimen and diuretic therapy until BP appropriate. During presentation did have sepsis associated with his urinary tract infection and bacteremia with hold on all of these regimens with improvement of blood pressure but still low normal range. indapamide 1.25 mg tablet 1.25 mg PO MOWEFR Hold Instructions: Resume on 05/07/24. Please continue to hold hypertensive regimen and diuretic therapy until BP appropriate. During presentation did have sepsis associated with his urinary tract infection and bacteremia with hold on all of these regimens with improvement of blood pressure but still low normal range. furosemide [Lasix] 20 mg tablet 20 mg PO SUTUTH Hold Instructions: Resume on 05/07/24. Please continue to hold hypertensive regimen and diuretic therapy until BP appropriate. During presentation did have sepsis associated with his urinary tract infection and bacteremia with hold on all of these regimens with improvement of blood pressure but still low normal range. Discontinued acetaminophen 500 mg capsule 1,000 mg PO Q8H PRN (Reason: pain) Referrals / Follow Up: Hospice, [facility] [Other] (Please initiate consultation at SNF once patient transitions to facility with [facility] with whom he was following prior.) Juan Carlos Joel MD [Primary Care Provider] - (Follow-up within 3-5 days of hospital discharge and also within 1-2 days of SNF discharge.) Disposition Disposition (needs filled in before D/C Order can be placed): Group Home Facility
--- NOTE | 2024-04-30 13:31 | PCM.DC.SUM ---
Providers Date of Admission: 04/26/24 Date of Discharge: 04/30/24 Primary Care Physician: Dr. Juan Carlos Joel MD Consultations 04/26/24 17:20 Consult: Security Public Safety Officer / Pulmonary Medicine Routine Consulting Provider: Intensivists/Pulmonary Med Reason for Consult: Sepsis, UTI EMERGENT Consult: No MD Notified: Yes Date Notified: 04/26/24 Time Notified: 17:04 Method of Notification: Text Reason For Visit: SEPSIS, UTI Diagnosis Discharge Diagnosis (1) Gram-negative bacteremia: Status: Acute Code(s): R78.81 - Bacteremia (2) Acute UTI: Status: Acute Code(s): N39.0 - Urinary tract infection, site not specified Plan DISCHARGE DIAGNOSES: #1. Acute Encephalopathy secondary to Acute sepsis (urinary tract infection, febrile, tachycardic, tachypneic, hypoxic, decreased responsiveness/encephalopathy, lactic acidosis) secondary to Acute Klebsiella pneumoniae Bacteremia 2/2 Cx secondary to Acute Klebsiella pneumoniae Complicated Urinary Tract Infection complicated by BPH with obstructive pathology #2. Acute hypoxia, potentially multifactorial secondary to #1 and noted mild bibasilar atelectasis on lower thorax on CT abdomen and pelvis, resolved #3. Acutely elevated creatinine/Acute renal insufficiency on Chronic Kidney Disease Stage II per GFR trending #4. Questionable rectal impaction w/ severe constipation #5. CAD status post remote CABG 1994 and PCI 2009 approximately #6. HFrEF, chronic #7. Hypertension #8. Hyperlipidemia #9. PSVT status post AICD/cardiac resynchronization therapy pacemaker #10. Chronic macrocytic anemia #11. Mild Thrombocytopenia, suspect reactive given #1 #12. Parkinson disease #13. Anxiety and depression #14. BPH with obstructive pathology #15. Severe protein calorie malnutrition #16. CODE status: Patient KATHIE is his who is present and living will is currently in place. DNR-CCA, no intubation. No central line and pressor usage. Medications at Discharge Home Medications aspirin 81 mg tablet,delayed release 81 mg PO DAILY@0800 [facility] 04/21/13 nitroglycerin 0.4 mg sublingual tablet 0.4 mg sublingual Q5M PRN Chest Pain #25 tabs 06/12/19 albuterol sulfate 90 mcg/actuation aerosol inhaler 2 puff inhalation Q6H PRN shortness of breath or wheezing #6.7 grams 01/27/20 carbidopa 25 mg-levodopa 100 mg tablet 2 tab PO 4X/DAY parkinsons 06/25/23 Handicap Placcard #1 ea 07/25/23 finasteride 5 mg tablet 5 mg PO DAILY prostate health 12/19/23 mirtazapine 30 mg tablet 30 mg PO DAILY mood 12/19/23 tamsulosin 0.4 mg capsule 0.4 mg PO DAILY prostate 12/19/23 spironolactone 25 mg tablet 12.5 mg (1/2 x 25 mg) PO DAILY 30 days #15 tabs 01/21/24 furosemide 20 mg tablet (Lasix) 20 mg PO SUTUTH 04/26/24 indapamide 1.25 mg tablet 1.25 mg PO MOWEFR 04/26/24 lorazepam 0.5 mg tablet (Ativan) 0.5 mg PO 4X/DAY 04/26/24 magnesium hydroxide 400 mg/5 mL oral suspension (Milk of Magnesia) 30 ml PO Q6H PRN constipation 04/26/24 sennosides 8.6 mg-docusate sodium 50 mg capsule (Senna Plus) 2 tab-cap PO BID 04/26/24 acetaminophen 325 mg tablet 650 mg (2 x 325 mg) PO Q4H PRN PRN Fever, pain 1-02/12 #0 tabs 04/30/24 ascorbic acid (vitamin C) 500 mg tablet 500 mg PO DAILY #0 tabs 04/30/24 atorvastatin 80 mg tablet 80 mg PO QHS #0 tabs 04/30/24 cefdinir 300 mg capsule 300 mg PO BID UTI, bacteremia 5 days #10 caps 04/30/24 melatonin 10 mg sublingual tablet 10 mg PO HS PRN insomnia #0 tabs 04/30/24 menthol 0.44 %-zinc oxide 20.6 % topical ointment (Calmoseptine) 1 applic topical 4X/DAY #0 grams 04/30/24 Hospital Course Operations None Procedures EKG Summary of Care Provided Minutes Spent on Discharge: 35 Hospital Course: The patient is an 78 y/o M w/ PMHx: Parkinson's disease, CAD/ischemic cardiomyopathy s/p CABG 1994 and PCI 2009, HTN, HLD, PSVT s/p AICD/cardiac resynchronization therapy pacemaker, HFrEF, BPH with obstructive pathology, Anxiety and Depression, Chronic anemia, CKD stage II per GFR trending who presented to the [facility] ED on 04/26/24 with history of hematuria with decreased responsiveness and worsening weakness prompting to bring patient into the ED for further evaluation. Patient is on hospice currently for Parkinson disease and significant underlying cardiac disease living at home with his spouse with hospice seeing him once weekly. Workup in the ED included T102.9, heart rate 109, BP 100/68, respiratory rate 24, initially 86% on room air improving to 99% on 2 L nasal cannula, CBC with WBC 6.4, hemoglobin 12.5, MCV 95.7, platelet 173 without marked shift with lymphopenia, unremarkable coags, CMP with BUN/creatinine 23/1.38, GFR 53, glucose 138, lactic acid 5.0, hepatic profile otherwise unremarkable, urinalysis with cloudy appearing urine, protein 15, occult blood 25, leukocyte esterase 500 with urine WBCs 50-100 with 3+ urine bacteria, blood culture x 2 pending per ED, urine culture pending per ED, rapid SARS COVID/influenza/RSV PCR negative, chest x-ray with hyperinflation of the lungs and perhaps mild interstitial prominence without any focal airspace disease likely indicated for COPD, no evidence of cardiomegaly, status post CABG evident, CT abdomen pelvis with IV contrast with nonspecific perinephric fluid collection possibly related to remote trauma, Sheehan catheter in place with a thick walled urinary bladder consistent with cystitis, questionable rectal impaction. In the ED patient initiated on 2 L normal saline (30 cc/kg IVF bolus per sepsis protocol), Tylenol 1000 mg p.o. x 1 and IV Zosyn. Review of patient's previous microbiology history with no additional cultures beyond today. Initially patient admitted to the ICU, s/p 30 cc/kg IV fluids per sepsis protocol with BP responsive, ICU followed, family/HCPOA decision for no central line/pressor therapy usage, monitored I/Os, continued IV Rocephin w/ eventually noted UCx/Bld Cx w/ Acute Klebsiella pneumoniae transitioned to cedinir to complete therapies at discharge for planned 10 day course, transitioned 04/27/24 to PA standard. 04/29/2024 de-escalation off midodrine therapy with close continued BP monitoring with stable BPs following but low normal range thus upon transition to SNF HTN regimen held with recommended continued close monitoring and restart as clinically appropriate. PT/OT/case management consulted for discharge planning with recommendation for SNF. Patient discharged in improved stable condition with recommended follow-up with primary care physician, completion of antibiotic therapies and continued aggressive therapies to ensure improving for transition from SNF to home once clinically appropriate. Weight / BMI Weight Weight: 152 lb 5.431 oz Body Mass Index (BMI) 21.8 ABG / Lab / Microbiology Data 04/30/24 04:40 04/30/24 04:40 Laboratory: Laboratory Results - last 24 hr 04/30/24 04:40: WBC 5.1, RBC 3.42 L, Hgb 10.8 L, Hct 33.2 L, MCV 97.1 H, MCH 31.6, MCHC 32.5, RDW Std Deviation 48.3 H, RDW Coeff of Patricia 13.6, Plt Count 146 L, MPV 9.4, Immature Gran % (Auto) 0.800, Neut % (Auto) 69.7, Lymph % (Auto) 16.2 L, [place] % (Auto) 9.0, Eos % (Auto) 3.7, Baso % (Auto) 0.6, Absolute Neuts (auto) 3.6, Absolute Lymphs (auto) 0.83, Nucleated RBC % 0, Sodium 140, Potassium 3.9, Chloride 109 H, Carbon Dioxide 26.0, Anion Gap 5, BUN 13, Creatinine 0.82, Estim Creat Clear Calc 70.02, Est GFR (MDRD) Af Amer 116, Est GFR (MDRD) Non-Af 96, BUN/Creatinine Ratio 15.9, Glucose 111 H, Calcium 8.7, Total Bilirubin 0.50, AST 29, ALT 16, Alkaline Phosphatase 129 H, Total Protein 5.5 L, Albumin 2.4 L, Globulin 3.1, Albumin/Globulin Ratio 0.8 L Microbiology: Microbiology 04/26/24 14:45 Blood Culture (Wb) - Right Forearm Blood Culture - Final GNR 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 04/26/24 14:44 Blood Culture (Wb) - Anticubital Left Blood Culture - Final Klebsiella pneumoniae sp pneum 04/26/24 15:09 Urine, Catheterized Urine Culture - Final Klebsiella pneumoniae sp pneum 04/26/24 18:30 Nasal Secretion MRSA (PCR) - Final 04/26/24 19:10 Mucosa - Nasopharyngeal Respiratory Panel (PCR) - Final 04/26/24 14:54 Mucosa - Nose SARS-CoV-2, Influenza & RSV (PCR) - Final D/C Instructions DC O2, CPAP, BIPAP Needs Home O2 Discharge instructions: No Meaningful Use Info Meaningful Use Meaningful Use Diagnoses (Choose all that apply): None applicable Ischemic Stroke Statin Dosing Therapy Reference: STATIN DOSE THERAPY REFERENCE: * Patients > 75 years receive moderate or high dose statin therapy. * Patients 75 years or YOUNGER should receive HIGH intensity statin dose unless contraindicated. You will be required to document reason for non-treatment if statin daily dose does not meet guidelines. HIGH DOSE STATIN THERAPY DAILY Atorvastatin > than or = to 40 mg Rosuvastatin > than or = to 20 mg Amlodipine + Atorvastatin > than or = to 2.5/40 mg Ezetimibe + Simvastatin 10/80 mg Simvastatin 80mg Discharge Plan Admission Admit Date/Time: 04/26/24 16:33 Primary Reason for Your Visit: Encephalopathy, Complicated UTI, Bacteremia, Transient hypoxia Attending Provider: Maria Fernanda Wisdom Primary Care Provider: Juan Carlos Joel Consulting Providers: Maria Fernanda Wisdom; Shanel Moses Instructions Patient Instructions: Urinary Tract Infections in Men Additional Instructions / Restrictions: ADDITIONAL DISCHARGE INSTRUCTIONS/CARE PLAN: #1. Acute Encephalopathy secondary to Acute sepsis (urinary tract infection, febrile, tachycardic, tachypneic, hypoxic, decreased responsiveness/encephalopathy, lactic acidosis) secondary to Acute Klebsiella pneumoniae Bacteremia 2/2 Cx secondary to Acute Klebsiella pneumoniae Complicated Urinary Tract Infection: --Initially admitted to the ICU, s/p 30 cc/kg IV fluids per sepsis protocol with BP responsive and eventually once clinically improved transitioned to medical floor. --Treated inpatient with IV Rocephin with Urine culture and Blood Cultures with noted Klebsiella pneumoniae. --You have been transition to oral cefdinir to complete the antibiotic course which is prolonged in this case given the infection was also in the bloodstream. --In the emergency room upon evaluation given sepsis presentation Sheehan catheter was temporarily placed but discontinued upon transition to longterm facility. --Please continue to monitor for appropriate-urine output to ensure no obstructive process given underlying BPH history. -- Upon admission your blood pressure was low secondary to the infection and all your hypertensive medications were temporarily held. Your blood pressure did improve however it is still low normal thus upon discharge to longterm facility we have continued to hold these agents and this will need to be followed with continuous blood pressure monitoring at the facility with resumption of your hypertensive regimen once felt clinically appropriate. #2. Acute hypoxia, potentially multifactorial secondary to #1 and noted mild bibasilar atelectasis on lower thorax on CT abdomen and pelvis: -- We strongly encouraged continued activity with out of bed to table with all meals, continue physical and Occupational Therapy assessment as well as aggressive incentive spirometry at least 10 times per hour from 7 AM to ideally 7 PM. #3. Acutely elevated creatinine/Acute renal insufficiency on Chronic Kidney Disease Stage II per GFR trending: --Admission BUN/Cr 23/1.38, GFR 53, baseline renal function primarily 0.8-1.2 but has vacillated, most recently prior to this 02/06/2024 creatinine 1.16, and GFR primarily low 60 range with most recent at day of discharge 04/30/24 BUN/Cr 13/0.82, GFR 116. -- You will have a repeat basic metabolic panel in 3 to 5 days. #4. Questionable rectal impaction w/ severe constipation: --Noted on CT, initiated on bowel regimen with enema, oral regimen in addition with improvement with bowel regimen continued upon transition with adjustments including de-escalation if necessary pending continued response. #15. Severe protein calorie malnutrition: --Evidenced by obvious muscle and fat loss, poor oral intake in the setting of acute infection additionally, nutrition consulted and followed during admission, encourage continued supplementations and nutrition evaluation at skilled facility. ADDITIONAL: --Please continue consultation upon transition to SNF with [facility] given this was revoked upon ED presentation and admission. Discharge Orders/Prescriptions Prescriptions: New atorvastatin 80 mg Tablet 80 mg PO QHS Qty: 0 0RF acetaminophen 325 mg Tablet 650 mg PO Q4H PRN PRN (Reason: Fever, pain 1-02/12) Qty: 0 0RF ascorbic acid (vitamin C) 500 mg Tablet 500 mg PO DAILY Qty: 0 0RF menthol-zinc oxide [Calmoseptine] 0.44-20.6 % Ointment 1 applic topical 4X/DAY Qty: 0 0RF Protocol: *Topical Application Instructions APPLICATION INSTRUCTIONS: apply to affected region melatonin 10 mg Tablet, Sublingual 10 mg PO HS PRN (Reason: insomnia) Qty: 0 0RF cefdinir 300 mg capsule 300 mg PO BID 5 Days Qty: 10 0RF Continued tamsulosin 0.4 mg capsule 0.4 mg PO DAILY mirtazapine 30 mg tablet 30 mg PO DAILY finasteride 5 mg tablet 5 mg PO DAILY aspirin 81 MG tablet 81 mg PO DAILY@0800 carbidopa-levodopa 25-100 mg tablet 2 tab PO 4X/DAY Patient Comments: takes 2 tabs at 0900, 1300, 1700, 2100 Senna Plus 8.6-50 mg capsule 2 tab-cap PO BID lorazepam [Ativan] 0.5 mg tablet 0.5 mg PO 4X/DAY magnesium hydroxide [Milk of Magnesia] 400 mg/5 mL suspension 30 ml PO Q6H PRN (Reason: constipation) albuterol sulfate 90 mcg/actuation HFA aerosol inhaler 2 puff INHALATION Q6H PRN (Reason: shortness of breath or wheezing) Qty: 6.7 0RF (DME) Handicap Placcard See Rx Instructions .Route .MEDSUPPLY Qty: 1 0RF Rx Instructions: Dx: Debility Exp: 07/2028 Held nitroglycerin 0.4 mg tablet, sublingual 0.4 mg SUBLINGUAL Q5M PRN (Reason: Chest Pain) Qty: 25 1RF Hold Instructions: Resume on 05/07/24. Please continue to hold hypertensive regimen and diuretic therapy until BP appropriate. During presentation did have sepsis associated with his urinary tract infection and bacteremia with hold on all of these regimens with improvement of blood pressure but still low normal range. spironolactone 25 mg Tablet 12.5 mg PO DAILY 30 Days Qty: 15 2RF Hold Instructions: Resume on 05/07/24. Please continue to hold hypertensive regimen and diuretic therapy until BP appropriate. During presentation did have sepsis associated with his urinary tract infection and bacteremia with hold on all of these regimens with improvement of blood pressure but still low normal range. indapamide 1.25 mg tablet 1.25 mg PO MOWEFR Hold Instructions: Resume on 05/07/24. Please continue to hold hypertensive regimen and diuretic therapy until BP appropriate. During presentation did have sepsis associated with his urinary tract infection and bacteremia with hold on all of these regimens with improvement of blood pressure but still low normal range. furosemide [Lasix] 20 mg tablet 20 mg PO SUTUTH Hold Instructions: Resume on 05/07/24. Please continue to hold hypertensive regimen and diuretic therapy until BP appropriate. During presentation did have sepsis associated with his urinary tract infection and bacteremia with hold on all of these regimens with improvement of blood pressure but still low normal range. Discontinued acetaminophen 500 mg capsule 1,000 mg PO Q8H PRN (Reason: pain) Referrals / Follow Up: Hospice, [facility] [Other] (Please initiate consultation at SNF once patient transitions to facility with [facility] with whom he was following prior.) Juan Carlos Joel MD [Primary Care Provider] - (Follow-up within 3-5 days of hospital discharge and also within 1-2 days of SNF discharge.) Disposition Disposition (needs filled in before D/C Order can be placed): [facility] Facility Charges/Coding Visit Charges Inpatient E&M: 03842 Disch Hosp >30min
--- NOTE | 2024-04-30 13:37 | CASEMGMT ---
Social Work Received notification from Shweta, Discharge Thermospray Operator, that prior authorization is back for this patient to go to [facility] for skilled level of care. Notified Dr. Wisodm who will discharge patient today. Met with patient and to update. Patient sleeping soundly in room, and did not wake up during SW visit. updated to authorization, plan for discharge, as well as educated that WC Van is a private pay cost not covered by insurance. [id number] Convalescent form completed via the [employer] for an anticipated 30 day or less convalescent stay. Noted in chart, Hospice to be consult when skilled services are completed and patient discharges home. Due to linoleum floor installer goal of resumption of hospice care a home, order for Palliative Care to consult at the SNF, to follow along while patient is getting skilled services, and then able to assist with transition back to hospice when appropriate. Message sent via [facility] with updates. Final discharge arrangements as per Discharge Thermospray Operator. Plan: skilled level of care at [facility], 30 day convalescent stay, palliative consult at the SNF. -LALO Christianson
--- NOTE | 2024-04-30 13:59 | CASEMGMT ---
Discharge Planning Discharge orders, signed med list, and transport time sent to [facility] via [facility]. Physicians will transport pt by wheelchair at 2:30p. Nursing, SW, pt, and his updated. Shweta Landa DC Planning Asst.
--- NOTE | 2024-04-30 14:48 | NURSING ---
called report to [facility] to [place] the nurse, pt to be picked up anytinme now.
== END 2024-04-30 15:17 | disposition skilled nursing facility (03) | DRG 871 ==
LOC: ED 16:38 → ICU 17:01 → MS3 04-28 09:52
PROVIDERS: Internal Medicine; Nurse Practitioner; Admitting Provider Family Medicine; Emergency Provider Surgery; PCP Family Medicine; Visit Provider Family Medicine
DX: A41.59 Other Gram-negative sepsis (principal); E43 Unspecified severe protein-calorie malnutrition; R65.21 Severe sepsis with septic shock; G93.41 Metabolic encephalopathy; J96.01 Acute respiratory failure with hypoxia; I13.0 Hypertensive heart and chronic kidney disease with heart failure and stage 1 through stage 4 chronic kidney disease, or unspecified chronic kidney disease; F02.84 Dementia in other diseases classified elsewhere, unspecified severity, with anxiety; I50.22 Chronic systolic (congestive) heart failure; J98.11 Atelectasis; F02.83 Dementia in other diseases classified elsewhere, unspecified severity, with mood disturbance; N17.9 Acute kidney failure, unspecified; I47.10 Supraventricular tachycardia, unspecified; N13.8 Other obstructive and reflux uropathy; N39.0 Urinary tract infection, site not specified; Z66 Do not resuscitate; G20.A1 Parkinson's disease without dyskinesia, without mention of fluctuations; I34.1 Nonrheumatic mitral (valve) prolapse; D53.9 Nutritional anemia, unspecified; D69.6 Thrombocytopenia, unspecified; K56.41 Fecal impaction; I25.10 Atherosclerotic heart disease of native coronary artery without angina pectoris; I25.5 Ischemic cardiomyopathy; N18.2 Chronic kidney disease, stage 2 (mild); E78.2 Mixed hyperlipidemia; I95.9 Hypotension, unspecified; R31.9 Hematuria, unspecified; N40.1 Benign prostatic hyperplasia with lower urinary tract symptoms; Z95.1 Presence of aortocoronary bypass graft; Z79.82 Long term (current) use of aspirin; Z79.899 Other long term (current) drug therapy; Z95.810 Presence of automatic (implantable) cardiac defibrillator; Z96.641 Presence of right artificial hip joint; Z68.21 Body mass index [BMI] 21.0-21.9, adult
CPT/HCPCS: 36415; 51702; 71045; 74177; 80048; 80053; 81001; 83605; 83735; 84100; 85025; 85610; 85730; 87040; 87077; 87086; 87088; 87186; 87631; 87633; 87641; 93005; 94668; 94762; 97110; 97116; 97162; 97166; 97530; 97802; 99252; 99285; Q9967; A4216; G0463

== ENCOUNTER → 2024-05-04 05:00 | Outpatient (REF) | payer MEDICARE, SELFPAY ==
[2024-05-04 08:21] LABS: Absolute Lymphocyte Count 1.14 X10^3/uL (0.83-4.51); Absolute Neutrophil Count 2.9 X10^3/uL (2.0-7.7); Basophil# 0.03 X10^3/uL; Basophil% 0.6 % (0-1); Eosinophil# 0.14 X10^3/uL; Eosinophils% 2.9 % (0-5); Hematocrit 31.6 % (40-54); Hemoglobin 10.3 g/dL (13.0-16.5); Lymphocyte # 1.14 X10^3/ul (0.83-4.51); Mean Corp Hgb Conc 32.6 g/dL (32-36); Mean Corpuscular Hgb 31.6 pg (27.0-32.0); Mean Corpuscular Volume 96.9 fL (80-94); Mean Platelet Vol. 9.3 fl (6.2-12.0); Monocyte# 0.52 X10^3/uL; Monocyte% 10.9 % (0-10); NRBC Flagged by Analyzer 0 % (0-5); Neutrophil # 2.85 X10^3/uL (2.7-7.7); Neutrophil % 60.1 % (47-70); Platelet Count 209 K/mm3 (150-450); RBC Distribution Width CV 13.6 % (11.6-14.6); RBC Distribution Width SD 48.1 fl (35.1-43.9); Red Blood Count 3.26 M/mm3 (4.6-6.2); White Blood Count 4.8 K/mm3 (4.4-11.0)
[2024-05-04 08:51] LABS: ALB/GLOB Ratio 0.8 RATIO (0.9-2.4); AST(SGOT) 24 U/L (15-37); Alanine Aminotransfer ALT/SGPT 14 U/L (16-61); Albumin, Serum 2.5 g/dL (3.2-5.0); Alkaline Phosphatase 111 U/L (45-117); Anion Gap 6 (5-15); BUN 11 mg/dL (7-18); Calcium,Total 8.5 mg/dL (8.5-10.1); Chloride 111 mmol/L (98-107); Creatinine, Serum 0.73 mg/dL (0.70-1.30); EST Glomerular Filtration Rate 109 mL/min (>60); Est Glom Filt Rate - Afr Amer 132 mL/min (>60); Glucose 84 mg/dL (74-106); Potassium 3.5 mmol/L (3.5-5.1); Protein, Total 5.5 g/dL (6.4-8.2); Sodium Level 139 mmol/L (136-145)
== END ==
LOC: OLS.WHLTCC 05:00
PROVIDERS: PCP Family Medicine; Visit Provider Internal Medicine
DX: I10 Essential (primary) hypertension (principal); G93.41 Metabolic encephalopathy; I25.10 Atherosclerotic heart disease of native coronary artery without angina pectoris; K59.00 Constipation, unspecified
CPT/HCPCS: 36415; 80053; 85025

== ENCOUNTER → 2024-12-18 06:00 | Outpatient (REF) | payer MEDICARE, SELFPAY ==
[2024-12-18 18:14] LABS: Red Blood Cells-Urine 0 SEEN /hpf (0-5)
[2024-12-18 18:25] LABS: Color, Urine Yellow (Yellow); Glucose, Dipstick Normal (Normal); Ketone-Dipstick 5 mg/dl (Negative); Leukocyte Esterase-Dipstick Negative /ul (Negative); Nitrite-Dipstick Negative (Negative); Occult Blood-Urine Negative /ul (Negative); Protein-Dipstick 30 mg/dl (Negative); Specific Gravity, Urine 1.015 (1.002-1.030); Urine Bilirubin Dipstick Negative (Negative)
[2024-12-18 18:42] LABS: Mucous, Urine 1+ /hpf (<or=2+); Squamous Epithelial Cells - UA 0-5 SEEN /hpf (0-5)
--- OUTSIDE RECORDS SUMMARY | 2024-12-18 20:16 | XMS RPT_ITS | CCD ---
Author Organization [facility]ini[facility] Care Team Providers Care Commercial Loan Administrator Name Role Phone RAMIRO Santiago, Jena Garcia Unavailable Unavailable Cassandra RUBIO, Karen Garsia Unavailable RACHEL Jorgensen, Karen Garcia Unavailable Vero RUBIO, Shweta Leavitt Unavailable Unavailable Valarie Duffy Unavailable Unavailable Valarie Duffy Unavailable Unavailable RAMIRO Santiago, Jena Garcia Unavailable Unavailable Aaron Perez MD Unavailable [facility] Nurse Unavailable Unavailable RACHEL Jorgensen, Karen Garcia Unavailable [facility] Ted Naun Primary Care Provider UnavailDr. Juan Carlos Martínez Primary Care Provider Dr. Juan Carlos Joel Referring Provider Kyara Santiago Attending Provider Unavailable PRETTY Diaz Attending Provider NutleyTed Primary Care Provider UnavailTed Javier Primary Care Provider UnavailDr. Juan Carlos Martínez Primary Care Provider Dr. Juan Carlso Joel Referring Provider [phone] Kyara Santiago Attending Provider Unavailable Dr. Aaron Perez Attending Provider [facility] Ted Naun Primary Care Provider Unavailselina Billingsley RAIL DOWELING MACHINE OPERATORCherry BEDOYA Unavailable Rina Irvin APRN.CNP Unavailable Dr. Juan Carlos Joel Primary Care Provider Dr. Juan Carlos Joel Referring Provider Kayra Santiago Attending Provider Unavailable Bucky BARIATRIC PROGRAM COORDINATOR, BARIATRIC PROGRAM COORDINATOR-C Kwasi Murcia Attending Provider Dr. Juan Carlos Joel Primary Care Provider Dr. Daniel Kaplan Attending Provider Dr. Juan Carlos Joel Referring Provider Roof BARIATRIC PROGRAM COORDINATOR, BARIATRIC PROGRAM COORDINATOR-C Kwasi Murcia Attending Provider Kyara Santiago Attending Provider Unavailable Gurdeep BARIATRIC PROGRAM COORDINATOR, BARIATRIC PROGRAM COORDINATOR-C Pamela Attending Provider Dr. Juan Carlos Joel Primary Care Provider Dr. Daniel Kaplan Attending Provider Dr. Juan Carlos Joel Referring Provider Roof BARIATRIC PROGRAM COORDINATOR, BARIATRIC PROGRAM COORDINATOR-C Kwasi Murcia Attending Provider Kyara Santiago Attending Provider Unavailable Gurdeep BARIATRIC PROGRAM COORDINATOR, BARIATRIC PROGRAM COORDINATOR-C Pamela Attending Provider Gurdeep BARIATRIC PROGRAM COORDINATOR, BARIATRIC PROGRAM COORDINATOR-C Pamela Referring Provider Gurdeep BARIATRIC PROGRAM COORDINATOR, BARIATRIC PROGRAM COORDINATOR-C Pamela Other Provider Ted Hays Primary Care Provider Unavailselina Billingsley RAIL DOWELING MACHINE OPERATOR.SPANISH INTERPRETER/TRANSLATOR, Cherry K Unavailable Albaro RAIL DOWELING MACHINE OPERATOR.SPANISH INTERPRETER/TRANSLATOR, Rina Unavailable Willie Haywood MD Unavailable Dr. Juan Carlos Joel MD Primary Care Provider Dr. Daniel Kaplan MD Attending Provider Dr. Juan Carlos Joel MD Primary Care Provider Hallie Mccarthy Attending Provider Dr. Daniel Kaplan MD Referring Provider Biju PEREZ, Dr. Lamas Attending Provider [phone] Juan Carlos Joel Primary Care Unavailable Maria Fernanda Wisdom Consulting Unavailable Maria Fernanda Wisdom Admitting Unavailable Maria Fernanda Wisdom Attending Unavailable Shanel Moses Consulting Unavailable Kyara Santiago Attending Unavailable Juan Carlos Joel Referring Unavailable Juan Carlos Joel Primary Care Unavailable Wisam, Juan Carlos Primary Care Unavailable Joel, Juan Carlos Referring Unavailable Jameel OLSEN, Karen Garcia Attending Unavail able Juan Carlos Joel Primary Care Unavailable Joel, Juan Carlos Attending Unavailable Joel, Juan Carlos Referring Unavailable Joel, Juan Carlos Primary Care Unavailable Adams Ivy Attending Unavailable Joel, Juan Carlos Primary Care Unavailable Hallie Campos Attending Unavailable Joel, Juan Carlos Primary Care Unavailable Guerrero Ivybe Attending Unavailable Joel, Juan Carlos Primary Care Unavailable White, Maria Fernanda L Consulting Unavailable White, Maria Fernanda L Admitting Unavailable White, Maria Fernanda L Attending Unavailable Shanel Moses Consulting Unavailable Eusebio, [place] Attending Unavailable Joel, Juan Carlos Primary Care Unavailable Eusebio, Daniel Attending Unavailable Joel, Juan Carlos Primary Care Unavailable Eusebio, [place] Referring Unavailable Joel, Juan Carlos Primary Care Unavailable Eusebio, [place] Attending Unavailable Eusebio, Daniel Referring Unavailable Eusebio, Daniel Referring Unavailable Timoteo Lance Attending Unavailable Joel, Juan Carlos Primary Care Unavailable Gurdeep SPENCER, Pamela Consulting Unavailable Karen Gabriel Consulting Unavail able Eusebio, Daniel Consulting Unavailable Noman Aldana Consulting Unavailable Noman Aldana Admitting Unavailable Nestor Leone Attending Unavailable Joel, Juan Carlos Primary Care Unavailable Nestor Leone Consulting Unavailable Joel, Juan Carlos Primary Care Unavailable Hallie Campos Attending Unavailable Valentin Rodriguez Attending Unavailable Gilmer Motta Consulting Unavailable White, Maria Fernanda L Referring Unavailable Amilcar Quezada Consulting Unavailable Dorian Michelle Consulting Unavailable Valentin Rodriguez Consulting Unavailable Reji Connelly Consulting Unavailable Nick Lucia Consulting Unavailable Froylan Coronado Consulting Unavailable Marina Newman Consulting UnavailTerrell Arrieta Consulting Unavailable Klever Agrawal Consulting Unavailable Mario Alberto Corley Consulting Unavailable Brenda Craig Consulting Unavailable Lyndsey Sanchez Consulting Unavailable Robert, Rm Consulting Unavailable Howard Perez Consulting Unavailable Kin Lee Consulting Unavailable Radha, Tushar Consulting Unavailable Cheri Rosas Consulting Unavailable Abdon Brito Consulting Unavailable Drew Hale Consulting Unavailable Domingo Johnson Consulting Unavailable Shanel Moses Attending Unavailable Joel, Juan Carlos Primary Care Unavailable Eusebio, Daniel Attending Unavailable Eusebio, [place] Referring Unavailable Eusebio, [place] Referring Unavailable Joel, Juan Carlos Primary Care Unavailable Eusebio, Daniel Attending Unavailable Pamela Mackenzie NP Consulting Unavailable Karen Gabriel Consulting Unavail able KoNoman andrews Admitting Unavailable Noman Aldana Consulting Unavailable Joel, Juan Carlos Primary Care Unavailable Nestor Leone Attending Unavailable Joel, Juan Carlos Primary Care Unavailable Hallie Campos Attending Unavailable Joel, Juan Carlos Primary Care Unavailable Hallie Campos Attending Unavailable Joel, Juan Carlos Primary Care Unavailable Daniel Kaplan Attending Unavailable EusebioJulio leonril Referring Unavailable Joel, Juan Carlos Primary Care Unavailable Daniel Kaplan Attending Unavailable Noman Aldana Consulting Unavailable Noman Aldana Attending Unavailable Noman Aldana Admitting Unavailable Joel, Juan Carlos Primary Care Unavailable Joel, Juan Carlos Primary Care Unavailable Adams Hernandez Attending Unavailselina rice [place], Juan Carlos Primary Care Unavailable Adams Hernandez Attending Unavailselina rice Allergies Allergy Classification Reported Allergen(s) Allergy Type Date of Onset Reaction(s) Facility (3 sources) Adhesive Tape; Translations: [adhesive tape] Allergy to substance 2 NEEDS FOLLOW-UP [facility] Medications Current Medications Medication Drug Class(es) Dates Sig (Normalized) Sig (Original) acetaminophen 325 mg oral tablet (12 sources) Start: 04-30-2024 take 2 tablets by mouth every four hours as needed for pain Acetaminophen 325 mg Tablet Active 650 mg PO EVERY 4 HOURS NEEDED as needed for Fever, pain 1-10/10 0 0 April 30, 2024 1:00am Start: 04-26-2024 End: 04-30-2024 take 2 capsules by mouth every eight hours as needed for pain Acetaminophen 500 mg capsule Discontinued 1000 mg PO Q8H as needed for pain April 26, 2024 1:00am April 30, 2024 2:18pm [id number] 200 actuat albuterol 0.09 mg/actuat metered dose inhaler (20 sources) beta2-Adrenergic Agonist Start: 01-06-2020 End: 01-27-2020 Albuterol Sulfate 90 mcg/actuation HFA aerosol inhaler Active 2 NMA INHALATION EVERY 6 HOURS as needed for shortness of breath or wheezing 6.7 0 January 27, 2020 9:50am Start: 01-06-2020 End: 01-27-2020 take 1 puff(s) by inhalation every six hours Albuterol Sulfate Active 2 PUFF INHALATION EVERY 6 HOURS 6.7 January 27, 2020 9:50am ascorbic acid 500 mg oral tablet (20 sources) Vitamin C Start: 04-30-2024 take 1 tablet by mouth once daily Ascorbic Acid (Vitamin C) 500 mg Tablet Active 500 mg PO DAILY 0 0 April 30, 2024 1:00am Start: 10-31-2020 End: 04-26-2024 take 1 tablet by mouth once daily Ascorbic Acid (Vitamin C) 500 mg tablet Discontinued 500 mg PO DAILY October 31, 2020 12:00am April 26, 2024 5:41pm supplement ascorbic acid (V ITAMIN C ORAL) Take by mouth. Active ascorbic acid (V ITAMIN C ORAL) Take by mouth. 0 Active aspirin 81 mg delayed release oral tablet (20 sources) Platelet Aggregation Inhibitor, Nonsteroidal Anti-inflammatory Drug Start: 08-23-2011 take 1 tablet by mouth once daily ECOTRIN LOW STRENGTH 81 MG TBEC One tablet by mouth daily ASPIRIN [id number] Aaron Perez MD Start: 11-02-2010 take 1 tablet by carlota th once daily ASPIRIN 325 MG TABS One tablet by mouth daily ASPIRIN [id number] Kim Graham Start: 03-05-2005 take 1 tablet by carlota th once daily Aspirin 81 MG tablet Active 81 mg PO DAILY@0800 April 21, 2013 1:00am heart health Comment on above: Take one(1) tablet d aily. atorvastatin 80 mg oral tablet (20 sources) HMG-CoA Reductase Inhibitor Start: 4 take 1 tablet by mouth at bedtime Atorvastatin 80 mg Tablet Active 80 mg PO AT BEDTIME 0 0 April 30, 2024 1:00am Start: 03-05-2005 End: 04-26-2024 Atorvastatin 80 mg tablet Di scontinued 0 .ROUTE .COMPLEX 90 3 May 17, 2023 2:48pm January 19, 2024 7:07am TAKE 1 TABLET AT BEDTIME Comment on above: Take one(1) tablet d aily. cefdinir 300 mg oral capsule (6 sources) Cephalosporin Antibacterial Start: 4 take 1 capsule by mouth twice daily Cefdinir 300 mg capsule Active 300 mg PO TWICE A DAY 10 5 0 April 30, 2024 1:00am UTI, bacteremia cholecalciferol, vitamin D3, (VITAMIN D3 ORAL) (4 sources) cholecalciferol, vitamin D3, (VITAMIN D3 ORAL) Take by mouth. Active cholecalciferol, vitamin D3, (VITAMIN D3 ORAL) Take by mouth. 0 Active docusate sodium 50 mg / sennosides, longterm 8.6 mg oral capsule (6 sources) Start: 04-26-2024 Sennosides-Docusate Sodium (Senna Plus) 8.6-50 mg capsule Active 2 NMA PO TWICE A DAY April 26, 2024 1:00am finasteride 5 mg oral tablet (6 sources) 5-alpha Reductase Inhibitor Start: 12-19-2023 take 1 tablet by mouth once daily Finasteride 5 mg tablet Active 5 mg PO DAILY December 19, 2023 12:00am prostate health Handicap Placcard (18 sources) Start: 07-25-2023 Handicap Placcard Active 0 .Route .MEDSUPPLY 1 0 July 25, 2023 3:31pm Dx: Debility Exp: 07/2028 Start: 07-25-2023 Handicap Placc heydi Active 0 .Route .MEDSUPPLY 1 July 25, 2023 3:31pm Dx: Debility Exp: 07/2028 Start: 07-25-2023 End: 07-25-2023 Handicap Placcard Discontinu ed 0 .Route .MEDSUPPLY 1 0 July 25, 2023 12:00am July 25, 2023 3:32pm Dx: Debility Exp: 07/2028 Start: 07-25-2023 End: 07-25-2023 Handicap Placcard Discontinu ed 0 .Route .MEDSUPPLY 1 July 25, 2023 12:00am July 25, 2023 3:32pm Dx: Debility Exp: 07/2028 Magnesium Hydroxide (6 sources) Start: 04-26-2024 take 1 mL by mouth every six hours as needed for constipation Magnesium Hydroxide (Milk Of Magnesia) 400 mg/5 mL suspension Active 30 mL PO EVERY 6 HOURS as needed for constipation April 26, 2024 1:00am melatonin 10 mg sublingual tablet (20 sources) Start: 04-30-2024 take 1 tablet by carlota th at bedtime as needed Melatonin 10 mg Tablet, Sublingual Active 10 mg PO BEDTIME as needed for insomnia 0 0 April 30, 2024 1:00am Start: 10-23-2021 End: 04-26-2024 take 1 tablet by mouth at bedtime as needed Melatonin 10 mg tablet Discontinued 10 mg PO BEDTIME as needed for insomnia October 23, 2021 12:00am April 26, 2024 5:42pm Menthol / Zinc Oxide (6 sources) Start: 04-30-2024 Menthol-Zinc O xide (Calmoseptine) 0.44-20.6 % Ointment Active 1 NMA TOPICAL 4 TIMES DAILY 0 0 April 30, 2024 1:00am Please contact the information source for Protocol details. Start: 04-30-2024 Menthol-Zinc O xide (Calmoseptine) 0.44-20.6 % Ointment Active 1 NMA TOPICAL 4 TIMES DAILY 0 April 30, 2024 1:00am Please contact the information source for Protocol details. mirtazapine 30 mg oral tablet (6 sources) Start: 12-19-2023 take 1 tablet by mouth once daily Mirtazapine 30 mg tablet Active 30 mg PO DAILY December 19, 2023 12:00am mood oxyCODONE hydrochloride 5 mg oral tablet (11 sources) Opioid Agonist Start: 12-04-2024 take 2.5 mg by mouth every six hours Oxycodone 5 mg tablet Active 2.5 mg PO EVERY 6 HOURS 120 30 0 December 04, 2024 January 02, 2025 12:00am Chronic pain Other chronic pain pain Start: 10-13-2024 End: 12-02-2024 take 2.5 mg by mouth every six hours Oxycodone 5 mg tablet Discontinued 2.5 mg PO EVERY 6 HOURS 60 30 0 November 02, 2024 December 01, 2024 12:00am December 02, 2024 12:07am Chronic pain Other chronic pain pain 24 hr rivastigmine 0.192 mg/hr transdermal system (2 sources) Start: 01-16-2022 End: 02-15-2022 apply 1 dose transdermal route once daily rivastigmine (EXELON) 4.6 mg/24 hour patch Indications: Parkinson disease (HCC) Apply 1 Patch as directed once daily. 30 Patch 3 01/16/2022 02/15/2022 Active Comment on above: Apply 1 Patch as dir ected once daily. tamsulosin hydrochloride 0.4 mg oral capsule (6 sources) alpha-Adrenerg ic Ganga Start: 12-19-2023 take 1 capsule by mouth once daily Tamsulosin 0.4 mg capsule Active 0.4 mg PO DAILY December 19, 2023 12:00am prostate Completed/Discontinued Medications Medication Drug Class(es) Dates Sig (Normalized) Sig (Original) amLODIPine 5 mg oral tablet (20 sources) Dihydropyridine Calcium Channel Ganga Start: 04-10-2019 End: 07-08-2023 take 1 tablet by mouth once daily Amlodipine 5 mg tablet Discontinued 5 mg PO DAILY 90 3 November 14, 2022 1:54pm July 08, 2023 5:03pm Start: 06-02-2018 End: 04-10-2019 take 1 tablet by mouth once daily Amlodipine 2.5 mg tablet Discontinued 2.5 mg PO DAILY 90 3 June 02, 2018 1:00am April 10, 2019 5:18pm Comment on above: Take 1 tablet by carlota once daily. benztropine mesylate 0.5 mg oral tablet (20 sources) Anticholinergic, Antihistamine Start: 07-19-19 End: 11-25-19 take 1 tablet by mouth twice daily Benztropine 0.5 mg tablet Discontinued 0.5 mg PO TWICE A DAY July 10, 2018 11:07am November 24, 2018 3:01pm carbidopa 25 mg / levodopa 100 mg oral tablet (20 sources) Aromatic Amino Acid Decarboxylation Inhibitor, Aromatic Amino Acid Start: 05-20-19 End: 06-25-19 24 take 2 tablets by mouth four times daily Carbidopa-Levodopa Active 2 TABLET PO .qid June 25, 2023 11:13am Start: 09-20-2021 End: 02-16-2024 Carbidopa-Levodopa 25-100 mg tablet Discontinued 1.5 {tbl} PO .qid May 20, 2023 2:22pm June 25, 2023 11:14am Start: 07-10-2018 End: 05-20-2023 Carbidopa-Levodopa 25-100 mg tablet Discontinued 2 {tbl} PO THREE TIMES A DAY July 10, 2018 11:06am May 20, 2023 2:24pm Start: 07-10-2018 End: 05-20-2023 take 2 tablets by mouth three times daily Carbidopa-Levodopa Discontinued 2 TABLET PO THREE TIMES A DAY July 10, 2018 11:06am May 20, 2023 2:24pm Start: 07-18-2017 End: 07-10-2018 Carbidopa-Levodopa 1 TABLET tablet Discontinued 2 {tbl} PO TWICE A DAY July 18, 2017 9:22am July 10, 2018 11:10am Start: 07-18-2017 End: 07-10-2018 take 2 tablets by mouth twice daily Carbidopa-Levodopa Discontinued 2 TABLET PO TWICE A DAY July 18, 2017 9:22am July 10, 2018 11:10am Start: 07-18-2017 End: 10-23-2021 Carbidopa-Levodopa 50-200 mg tablet extended release Discontinued 1 {tbl} PO TWICE A DAY July 18, 2017 12:00am October 23, 2021 3:48pm Start: 07-18-2017 End: 10-23-2021 take 1 tablet by mouth twice daily Carbidopa-Levodopa Discontinued 1 TABLET PO TWICE A DAY July 18, 2017 12:00am October 23, 2021 3:48pm Start: 05-19-2015 take 1 tablet by carlota th at bedtime SINEMET CR 50-200 MG CR-TABS One tablet by mouth at bedtime. CARBIDOPA-LEVODOPA [id number] Aaron Perez MD Start: 05-19-2015 take 1 tablet by carlota th at bedtime SINEMET CR 50-200 MG CR-TABS One tablet by mouth at bedtime. CARBIDOPA-LEVODOPA [id number] Aaron Perez MD Start: 04-21-2013 End: 07-18-2017 take 1 tablet by mouth three times daily before mealtime Carbidopa-Levodopa Discontinued 1 TABLET PO THREE TIMES DAILY BEFORE MEALS April 21, 2013 1:00am July 18, 2017 9:23am Start: 11-02-2010 End: 07-18-2017 Carbidopa-Levodopa 1 TABLET tablet Discontinued 1 {tbl} PO THREE TIMES DAILY BEFORE MEALS April 21, 2013 1:00am July 18, 2017 9:23am Start: 11-02-2010 take 1 tablet by carlota th three times daily SINEMET 25-100 MG TABS One tablet by mouth three times daily CARBIDOPA-LEVODOPA [id number] Kim Graham Comment on above: Take 2 tablets by mo [facility] four times daily. Take 2 tablets by mo [facility] three times daily. cholecalciferol 0.25 mg oral capsule (20 sources) Vitamin D Start: 05-28-19 End: 04-26-20 take 1 capsule by mouth once daily Cholecalciferol (Vitamin D3) 250 mcg (10,000 unit) capsule Discontinued 250 ug PO DAILY May 28, 2022 1:00am April 26, 2024 5:42pm supplement Start: 07-15-2017 End: 07-18-2017 take 1 capsule by mouth once daily Cholecalciferol (Vitamin D3) 2,000 unit capsule Discontinued 2000 U PO daily July 15, 2017 12:00am July 18, 2017 9:22am Start: 10-12-2013 take 1 tablet by [facility] once daily VITAMIN D3 2000 UNIT CAPS One tablet by mouth daily CHOLECALCIFEROL [id number] Karen Jorgensen PA-C Start: 10-12-2013 VITAMIN D3 200 0 UNIT CAPS 5,000 IU twice daily CHOLECALCIFEROL [id number] Aaron Perez MD citalopram 20 mg oral tablet (20 sources) Serotonin Reuptake Inhibitor Start: 03-05-2005 End: 09-20-2021 take 1 tablet by mouth once daily Citalopram 20 MG tablet Discontinued 20 mg PO DAILY April 21, 2013 1:00am April 10, 2019 4:57pm Comment on above: Take one(1) tablet d antwan. clopidogrel 75 mg oral tablet (20 sources) [id number] Platelet Inhibitor Start: 11-02-2010 End: 02-25-2012 take 1 tablet by mouth once daily PLAVIX 75 MG TABS One tablet by mouth daily CLOPIDOGREL BISULFATE [id number] Aaron Perez MD digoxin 0.25 mg oral tablet (20 sources) Cardiac Glycoside Start: 05-17-2023 End: 05-20-2023 Digoxin 250 mcg (0.25 mg) tablet Discontinued 0 .ROUTE .COMPLEX 90 3 May 17, 2023 2:27pm May 20, 2023 3:01pm TAKE 1 TABLET EVERY DAY Start: 03-05-2005 End: 05-20-2023 take 1 tablet by mouth once daily Digoxin 250 mcg (0.25 mg) tablet Discontinued 250 ug PO DAILY 90 May 01, 2022 9:10am May 17, 2023 2:28pm Comment on above: Take one(1) tablet d antwan. ergocalciferol [id number] unt oral capsule (13 sources) Provitamin D2 Compound Start: 10-13-19 take 1 tablet by mouth once daily VITAMIN D (ERGOCALCIFEROL) 45721 UNIT CAPS One tablet by mouth daily ERGOCALCIFEROL [id number] Karen Jorgensen PA-C Start: 10-12-2013 take 1 tablet by carlota th once daily VITAMIN D (ERGOCALCIFEROL) 75150 UNIT CAPS One tablet by mouth daily ERGOCALCIFEROL [id number] Karen Jorgensen PA-C etodolac 400 mg oral tablet (20 sources) Nonsteroidal Anti-inflammatory Drug Start: 08-23-2011 End: 09-26-2012 take 1 tablet by mouth twice daily ETODOLAC 400 MG TABS One tablet by mouth twice daily ETODOLAC [id number] Aaron Perez MD furosemide 20 mg oral tablet (20 sources) Loop Diuretic Start: 01-21-2024 End: 04-26-2024 Furosemide (Lasix) 20 mg tablet Active [facility] April 26, 2024 1:00am On Hold: Resume on 05/07/24. Please continue to hold hypertensive regimen and diuretic therapy until BP appropriate. During presentation did have sepsis associated with his urinary tract infection and bacteremia with hold on all of these regimens with improvement of blood pressure but still low normal range. Start: 12-19-2023 End: 01-21-2024 Furosemide 40 mg tablet Disc ontinued 20 mg PO DAILY 5 December 19, 2023 3:25pm January 21, 2024 2:25pm Start: 06-25-2023 End: 12-19-2023 take 1 tablet by mouth once daily Furosemide 40 mg tablet Discontinued 40 mg PO DAILY 5 June 25, 2023 1:00am December 19, 2023 3:26pm Start: 03-05-2005 End: 05-20-2023 take 1 tablet by mouth once daily Furosemide 40 mg tablet Discontinued 40 mg PO DAILY 90 3 January 15, 2022 1:03pm May 20, 2023 2:23pm Comment on above: Take one(1) tablet d antwan. indapamide 1.25 mg oral tablet (12 sources) Thiazide-like Diuretic Start: 04-26-2024 Indapamide 1.25 mg tablet Active 1.25 mg PO MOWEApril 26, 2024 1:00am On Hold: Resume on 05/07/24. Please continue to hold hypertensive regimen and diuretic therapy until BP appropriate. During presentation did have sepsis associated with his urinary tract infection and bacteremia with hold on all of these regimens with improvement of blood pressure but still low normal range. Start: 12-19-2023 End: 01-21-2024 take 1 tablet by mouth once daily in the morning Indapamide 1.25 mg tablet Discontinued 1.25 mg PO EVERY MORNING December 19, 2023 12:00am January 21, 2024 2:25pm LORazepam 1 mg oral tablet (20 sources) Benzodiazepine Start: 11-16-2024 End: 12-16-2024 take 1 tablet by mouth at bedtime Lorazepam 1 mg tablet Discontinued 1 mg PO AT BEDTIME 30 30 0 November 16, 2024 12:00am December 15, 2024 12:00am December 16, 2024 12:07am anxiety Start: 10-15-2024 End: 11-14-2024 take 1 tablet by mouth every six hours Lorazepam (Ativan) 0.5 mg tablet Discontinued 0.5 mg PO .every 6 hours 120 30 0 October 15, 2024 3:22pm November 13, 2024 12:00am November 14, 2024 12:09am anxiety Start: 10-15-2024 End: 11-14-2024 take 1 tablet by mouth at bedtime Lorazepam 1 mg tablet Discontinued 1 mg PO AT BEDTIME 30 30 0 October 15, 2024 12:00am November 13, 2024 12:00am November 14, 2024 12:09am anxiety Start: 04-26-2024 End: 10-15-2024 take 1 tablet by mouth four times daily as needed for anxiety Lorazepam 0.5 mg tablet Discontinued 0.5 mg PO .qid as needed for anxiety 30 8 0 May 11, 2024 5:41pm May 18, 2024 1:00am May 19, 2024 1:09am 24 hr metoprolol succinate 50 mg extended release oral tablet (20 sources) beta-Adrenergic Ganga Start: 06-25-2023 End: 04-26-2024 take 2 tablets by mouth once daily Metoprolol Succinate 50 mg tablet extended release 24 hr Discontinued 25 mg PO DAILY June 25, 2023 11:14am April 26, 2024 5:42pm heart/ blood pressure Start: 06-25-2023 take 25 mg by mouth once daily Metoprolol Succinate Active 25 MG PO DAILY June 25, 2023 11:14am Start: 10-23-2021 End: 06-25-2023 Metoprolol Succinate 50 mg t ablet extended release 24 hr Discontinued 0 .ROUTE .COMPLEX 90 May 17, 2023 2:49pm June 25, 2023 11:14am TAKE 1/2 TABLET TWICE DAILY Start: 10-23-2021 End: 06-25-2023 Metoprolol Succinate Discont inued 0 .ROUTE .COMPLEX 90 May 17, 2023 2:49pm June 25, 2023 11:14am TAKE 1/2 TABLET TWICE DAILY Start: 07-18-2017 End: 06-02-2018 take 1 tablet by mouth once daily Metoprolol Succinate 25 mg tablet extended release 24 hr Discontinued 25 mg PO daily 90 July 18, 2017 12:00am June 02, 2018 5:03pm Start: 06-12-2017 End: 10-23-2021 take 1 tablet by mouth once daily Metoprolol Succinate 50 mg tablet extended release 24 hr Discontinued 50 mg PO DAILY 90 May 08, 2021 12:39pm October 23, 2021 4:14pm Start: 11-02-2010 End: 06-12-2017 take 1 tablet by mouth once daily Metoprolol Succinate 100 MG tablet Discontinued 100 mg PO DAILY 90 May 26, 2017 9:41am June 12, 2017 2:32pm Start: 11-02-2010 take 1 tablet by carlota th once daily TOPROL XL 100 MG [id number] One tablet by mouth daily METOPROLOL SUCCINATE [id number] Aaron Perez MD Comment on above: Take 50 mg by mouth once daily. 24 hr niacin 1000 mg extended release oral tablet (20 sources) Nicotinic Acid Start: 11-02-2010 End: 10-12-2013 take 1 tablet by mouth at bedtime NIASPAN 1000 MG CR-TABS One tablet by mouth at bedtime. with low fat snack NIACIN (ANTIHYPERLIPIDEMIC) [id number] Aaron Perez MD Start: 03-05-2005 End: 09-20-2021 take 1 tablet by mouth at bedtime Niacin 1,000 MG tablet Discontinued 1000 mg PO AT BEDTIME April 21, 2013 1:00am June 12, 2017 2:28pm Comment on above: Take one(1) tablet d aily. nitroglycerin 0.4 mg sublingual tablet (20 sources) Nitrate Vasodilator Start: 04-21-2013 End: 06-12-2019 Nitroglycerin 0.4 mg tablet, sublingual Active 0.4 mg SL Q5M as needed for Chest Pain 30 05June 12, 2019 12:00pm On Hold: Resume on 05/07/24. Please continue to hold hypertensive regimen and diuretic therapy until BP appropriate. During presentation did have sepsis associated with his urinary tract infection and bacteremia with hold on all of these regimens with improvement of blood pressure but still low normal range. Start: 04-21-2013 End: 06-12-2019 Nitroglycerin Active 0.4 MG SL Q5M June 12, 2019 12:00pm Start: 08-23-2011 NITROSTAT 0.4 MG SUBL 1 tablet under tongue every 5 min up to 3 X NITROGLYCERIN [id number] Aaron Perez MD Start: 11-02-2010 NITROGLYCERIN 0.4 MG/HR PT24 1 tablet under tongue every 5 min up to 3 X NITROGLYCERIN [id number] Kim Graham OMEGA-3 FATTY ACIDS CPDR (10 sources) Start: 11-02-2010 take 1 tablet by mouth once daily OMEGA 3 CPDR One tablet by mouth daily OMEGA-3 FATTY ACIDS CPDR [id number] Kim Graham Start: 11-02-2010 End: 02-25-2012 take 1 tablet by mouth once daily OMEGA 3 CPDR One tablet by mouth daily OMEGA-3 FATTY ACIDS CPDR [id number] Aaron Perez MD OMEGA-3 FATTY ACIDS CPDR (16 sources) Start: 11-02-2010 End: 02-25-2012 take 1 tablet by mouth once daily OMEGA 3 CPDR One tablet by mouth daily OMEGA-3 FATTY ACIDS CPDR [id number] Aaron Perez MD Start: 11-02-2010 take 1 tablet by carlota th once daily OMEGA 3 CPDR One tablet by mouth daily OMEGA-3 FATTY ACIDS CPDR [id number] Kim Graham Start: 11-02-2010 take 1 tablet by carlota th once daily OMEGA 3 CPDR One tablet by mouth daily OMEGA-3 FATTY ACIDS CPDR [id number] Kim Garcia Graham Start: 11-02-2010 End: 02-25-2012 take 1 tablet by mouth once daily OMEGA 3 CPDR One tablet by mouth daily OMEGA-3 FATTY ACIDS CPDR [id number] Aaron Perez MD ramipril 1.25 mg oral capsule (20 sources) Angiotensin Converting Enzyme Inhibitor Start: 01-21-2024 End: 04-26-2024 take 1 capsule by mouth once daily Ramipril 1.25 mg Capsule Discontinued 1.25 mg PO DAILY January 21, 2024 12:00am April 26, 2024 5:42pm Start: 06-02-2018 End: 01-21-2024 Ramipril 10 mg capsule Disco ntinued 0 .ROUTE .COMPLEX 180 January 23, 2023 3:50pm June 25, 2023 11:14am TAKE 1 CAPSULE TWICE DAILY Start: 11-02-2010 End: 06-12-2017 take 1 capsule by mouth twice daily Ramipril 10 MG capsule Discontinued 10 mg PO TWICE A DAY 180 3 May 26, 2017 9:41am June 12, 2017 2:32pm Start: 11-02-2010 take 1 tablet by carlota th once daily ALTACE 10 MG CAPS One tablet by mouth daily RAMIPRIL [id number] Karen Jorgensen PA-C Start: 11-02-2010 take 1 tablet by carlota th twice daily ALTACE 10 MG CAPS One tablet by mouth twice daily RAMIPRIL [id number] Aaron Perez MD Start: 03-05-2005 End: 09-20-2021 take 1 capsule by mouth once daily Ramipril 10 MG capsule Discontinued 10 mg PO daily 90 3 June 12, 2017 2:28pm June 02, 2018 5:04pm Comment on above: Take one(1) tablet d aily. rasagiline 1 mg oral tablet (20 sources) Monoamine Oxidase Inhibitor Start: 04-21-2013 End: 06-12-2017 take 1 tablet by mouth once daily Rasagiline 1 MG tablet Discontinued 1 mg PO DAILY April 21, 2013 1:00am June 12, 2017 2:30pm Start: 04-10-2013 End: 10-12-2013 AZILECT 1 MG TABS 1/2 tablet x 4 days, then one tablet daily RASAGILINE MESYLATE [id number] BRUCE AbbottC rOPINIRole 1 mg oral tablet (20 sources) Nonergot Dopamine Agonist Start: 02-25-2012 End: 06-12-2017 take 1 tablet by mouth three times daily Ropinirole 1 MG tablet Discontinued 1 mg PO THREE TIMES A DAY April 21, 2013 1:00am June 12, 2017 2:30pm Start: 11-02-2010 take 2 tablets by mo [facility] once daily REQUIP 4 MG TABS 2 tablets by mouth daily ROPINIROLE HCL [id number] Kim Graham sertraline 100 mg oral tablet (20 sources) Serotonin Reuptake Inhibitor Start: 04-20-2021 End: 01-19-2024 take 1 tablet by mouth once daily Sertraline 100 mg tablet Discontinued 100 mg PO DAILY April 20, 2021 1:00am June 25, 2023 11:14am Start: 06-12-2019 End: 04-20-2021 take 2 tablets by mouth once daily Sertraline 50 mg tablet Discontinued 100 mg PO DAILY June 12, 2019 11:57am April 20, 2021 4:33pm Start: 06-12-2019 End: 04-20-2021 take 100 mg by mouth once daily Sertraline Discontinue d 100 MG PO DAILY June 12, 2019 11:57am April 20, 2021 4:33pm Start: 04-10-2019 End: 06-12-2019 take 1 tablet by mouth once daily Sertraline 50 mg tablet Discontinued 50 mg PO DAILY April 10, 2019 1:00am June 12, 2019 11:59am Comment on above: Take 1 tablet by carlota th once daily. spironolactone 25 mg oral tablet (20 sources) Aldosterone Antagonist Start: 01-21-2024 Spironolactone 25 mg Tablet Active 12.5 mg PO DAILY 15 30 2 January 21, 2024 12:00am On Hold: Resume on 05/07/24. Please continue to hold hypertensive regimen and diuretic therapy until BP appropriate. During presentation did have sepsis associated with his urinary tract infection and bacteremia with hold on all of these regimens with improvement of blood pressure but still low normal range. Start: 06-21-2023 End: 01-21-2024 take 1 tablet by mouth once daily Spironolactone 25 mg tablet Discontinued 25 mg PO DAILY 90 3 October 15, 2023 4:08pm January 21, 2024 2:25pm sulfamethoxazole 800 mg / trimethoprim 160 mg oral tablet (20 sources) Dihydrofolate Reductase Inhibitor Antibacterial, Sulfonamide Antimicrobial Start: 04-17-2013 End: 10-12-2013 take 1 tablet by mouth twice daily BACTRIM DS 800-160 MG TABS One tablet by mouth twice daily X 3 days SULFAMETHOXAZOLE-TRIMETHOPRIM [id number] Karen Jorgensen PA-C Start: 04-17-2013 take 1 tablet by carlota th twice daily BACTRIM DS 800-160 MG TABS One tablet by mouth twice daily SULFAMETHOXAZOLE-TRIMETHOPRIM [id number] Clair Ovalle RN Start: 04-17-2013 End: 10-12-2013 take 1 tablet by mouth twice daily BACTRIM DS 800-160 MG TABS One tablet by mouth twice daily X 3 days SULFAMETHOXAZOLE-TRIMETHOPRIM [id number] Karen Jorgensen PA-C Start: 04-17-2013 take 1 tablet by carlota th twice daily BACTRIM DS 800-160 MG TABS One tablet by mouth twice daily X 3 days SULFAMETHOXAZOLE-TRIMETHOPRIM [id number] Aaron Perez MD vitamin b12 1 mg/ml oral solution (20 sources) Vitamin B12 Start: 04-21-2013 End: 06-12-2017 take 1000 ug by mouth once daily Cyanocobalamin (Vitamin B-12) 1,000 MCG/ML drops Discontinued 1000 ug PO DAILY April 21, 2013 1:00am June 12, 2017 2:28pm Start: 04-21-2013 End: 06-12-2017 take 1000 ug by mouth once daily Cyanocobalamin (Vitamin B-12) Discontinued 1000 MCG PO DAILY April 21, 2013 1:00am June 12, 2017 2:28pm Start: 11-02-2010 End: 10-12-2013 take 1 tablet by mouth once daily VITAMIN B-12 1000 MCG TABS One tablet by mouth daily CYANOCOBALAMIN [id number] Kim Graham Problems Active Problems Problem Classification Problem Date Documented Date Episodic/Chronic Acute and unspecified renal failure (7 sources) Acute renal failure syndrome; Translations: [Acute kidney failure, unspecified] Onset: 4 01-24-2024 Episodic Bacterial infection; unspecified site (7 sources) Bacteremia caused by Gram-negative bacteria; Translations: [Bacteremia] Onset: 5 05-08-2024 Episodic Cardiac dysrhythmias (20 sources) Supraventricular tachycardia; Translations: [Paroxysmal supraventricular tachycardia] Onset: 5 06-07-2014 Chronic Conduction disorders (20 sources) Left bundle branch block; Translations: [Automatic implantable cardiac defibrillator in situ] Onset: 1 11-02-2010 Chronic Comment on above: 01/16/02, Implantatio n of Dual Chamber Biventricular Defib CELLULAR PHONE REPAIRER-D( normal batter y depletion) changed out for CELLULAR PHONE REPAIRER-P on 12/31/23 @ [facility] Congestive heart failure; nonhypertensive (20 sources) Chronic systolic heart failure; Translations: [Chronic systolic (congestive) heart failure] Onset: 1 11-02-2010 Chronic Coronary atherosclerosis and other heart disease (20 sources) Atherosclerotic heart disease of rincon coronary artery without angina pectoris; Translations: [Angina pectoris] Onset: 1 06-27-2016 Chronic Comment on above: S/P CABG in r 1994 with MA to LAD, SVG to diagonal 1, SVG to OM1, SVG to LCx, and SVG to PDA; stenting to left main and LAD in March 2010 Disorders of lipid metabolism (20 sources) Hyperlipidemia; Translations: [Mixed hyperlipidemia] Onset: 1 11-02-2010 Chronic Essential hypertension (20 sources) Hypertensive disorder; Translations: [Essential hypertension] Onset: 1 11-02-2010 Chronic Fluid and electrolyte disorders (6 sources) Lactic acidosis; Translations: [Lactic acidosis] 05-08-2024 Episodic Heart valve disorders (20 sources) Mitral valve disorder; Translations: [Mitral valve prolapse] Onset: 1 11-02-2010 Chronic Heart valve disorders (20 sources) Heart murmur; Translations: [Cardiac murmur, unspecified] Onset: 1 11-02-2010 Episodic Malaise and fatigue (20 sources) Fatigue; Translations: [Other fatigue] Onset: 5 10-19-2014 Episodic Other aftercare (8 sources) Patient encounter status; Translations: [Other intermediate manager (current) drug therapy] 07-10-2018 Episodic Other aftercare (6 sources) Long-term current use of drug therapy; Translations: [Other mcfp (current) drug therapy] 07-10-2018 Episodic Other lower respiratory disease (11 sources) Dyspnea; Translations: [Shortness of breath] 06-24-2023 Episodic Other nervous system disorders (6 sources) Metabolic encephalopathy; Translations: [Metabolic encephalopathy] 05-08-2024 Chronic Other nervous system disorders (5 sources) Chronic pain; Translations: [Other chronic pain] 10-13-2024 Chronic Other nervous system disorders (1 source) Metabolic encephalopathy; Translations: [Metabolic encephalopathy] Onset: 5 Chronic Other nervous system disorders (1 source) Abnormal gait; Translations: [Unsteadiness on feet] Episodic Other screening for suspected conditions (not mental disorders or infectious disease) (20 sources) Electrocardiogram abnormal; Translations: [Echocardiogram abnormal] Onset: 1 11-02-2010 Episodic Parkinson`s disease (20 sources) Parkinson's disease; Translations: [Parkinson's disease] Onset: 2 Chronic Parkinson`s disease (1 source) Parkinson`s disease; Translations: [Parkinson's disease without dyskinesia, without mention of fluctuations] Onset: 4 Residual codes; unclassified (1 source) REM sleep behavior disorder; 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 Residual codes; unclassified (11 sources) Bilateral lower limb edema; Translations: [Localized edema] 06-24-2023 Episodic Septicemia (except in labor) (7 sources) Sepsis; Translations: [Sepsis, unspecified organism] Onset: 5 05-08-2024 Episodic Syncope (8 sources) Syncope; Translations: [Syncope and collapse] Onset: 4 01-24-2024 Episodic Unclassified (6 sources) Implantation of automatic cardiac defibrillator ; Translations: [Presence of automatic (implantable) cardiac defibrillator] Onset: 1 11-02-2010 Unclassified (8 sources) Long-term drug therapy; Translations: [Other intermediate manager (current) drug therapy] Onset: 1 11-02-2010 Urinary tract infections (20 sources) Urinary tract infection, site not specified; Translations: [Acute urinary tract infection] Onset: 3 04-17-2013 Episodic Viral infection (15 sources) Disease caused by 2019-nCoV; Translations: [COVID-19] Episodic Past or Other Problems Problem Classification Problem Date Documented Da te Episodic/Chronic Abdominal hernia (16 sources) Recurrent inguinal hernia; Translations: [Unilateral inguinal hernia, without obstruction or gangrene, recurrent] Onset: 03-05-2005 03-05-2005 Episodic Complications of surgical procedures or medical care (13 sources) Postoperative infection; Translations: [Infection following a procedure] Onset: 11-02-2010 11-02-2010 Episodic Coronary atherosclerosis and other heart disease (20 sources) Coronary angioplasty status; 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] Onset: 01-04-1995 11-02-2010 Episodic Comment on above: PCI/AMOS of the left main and into the prox LAD 03/21/10 @ [facility] Genitourinary symptoms and ill-defined conditions (1 source) Dysuria; Translations: [Dysuria] Onset: 06-02-2024 Episodic Nonspecific chest pain (13 sources) Chest discomfort; Translations: [Other chest pain] Onset: 11-02-2010 11-02-2010 Episodic Other aftercare (5 sources) Other mcfp (current) drug therapy; Translations: [Other intermediate manager (current) drug therapy] Onset: 11-02-2010 11-02-2010 Episodic Other nutritional; endocrine; and metabolic disorders (20 sources) Body mass index (BMI) 25.0-25.9, adult; Translations: [Body mass index (BMI) 25.0-25.9, adult] Onset: 04-10-2013 Resolved: 04-19-2014 04-10-2013 Episodic Other screening for suspected conditions (not mental disorders or infectious disease) (18 sources) Abnormal result of cardiovascular function study, unspecified; Translations: [Electrocardiogram abnormal] Onset: 11-02-2010 11-02-2010 Episodic Residual codes; unclassified (20 sources) FH: Hypertension; Translations: [Family history of ischemic heart disease and other diseases of the circulatory system] Onset: 10-19-2014 Resolved: 04-22-2015 10-19-2014 Episodic Residual codes; unclassified (14 sources) [...] [Body mass index (BMI) 23.0-23.9, adult] Onset: 07-04-2016 07-04-2016 Episodic Residual codes; unclassified (7 sources) FH: Raised blood lipids; Translations: [Family history of other endocrine, nutritional and metabolic diseases] 10-19-2014 Episodic Residual codes; unclassified (14 sources) Body Mass Index between 19-24, adult; Translations: [Body Mass Index between 19-24, adult] Onset: 10-19-2014 Resolved: 04-22-2015 10-19-2014 Episodic Respiratory failure; insufficiency; arrest (adult) (1 source) Acute respiratory failure with hypoxia; Translations: [Acute respiratory failure with hypoxia] Onset: 06-16-2024 Episodic Results Test Name Value Interpretation Reference Range Facility CBC W/Diff, Automatedon 12-3 Absolute Neut Normal 2.0-7.7 [facility] Comment on above: Result Comment: Canc elled via OM: Order cancelled - Patient discharged Performed By: #### L 500.4050, L100.0100 ####[facility] [address] [place], [address] HCT Normal 40-54 [facility] Comment on above: Result Comment: Canc elled via OM: Order cancelled - Patient discharged Performed By: #### L 500.4050, L100.0100 ####[facility] [address] [place], [address] HGB Normal 13.0-16.5 [facility] Comment on above: Result Comment: Canc elled via OM: Order cancelled - Patient discharged Performed By: #### L 500.4050, L100.0100 ####[facility] [address] [place], [address] MCH Normal 27.0-32.0 [facility] Comment on above: Result Comment: Canc elled via OM: Order cancelled - Patient discharged Performed By: #### L 500.4050, L100.0100 ####[facility] [address] [place], [address] MCHC Normal 32-36 [facility] Comment on above: Result Comment: Canc elled via OM: Order cancelled - Patient discharged Performed By: #### L 500.4050, L100.0100 ####[facility] [address] [place], [address] MCV Normal 80-94 [facility] Comment on above: Result Comment: Canc elled via OM: Order cancelled - Patient discharged Performed By: #### L 500.4050, L100.0100 ####[facility] [address] [place], [address] NEUT% Normal 47-70 [facility] Comment on above: Result Comment: Canc elled via OM: Order cancelled - Patient discharged Performed By: #### L 500.4050, L100.0100 ####[facility] [address] [place], [address] PLT Normal 150-450 [facility] Comment on above: Result Comment: Canc elled via OM: Order cancelled - Patient discharged Performed By: #### L 500.4050, L100.0100 ####[facility] [address] [place], [address] RBC Normal 4.6-6.2 [facility] Comment on above: Result Comment: Canc elled via OM: Order cancelled - Patient discharged Performed By: #### L 500.4050, L100.0100 ####[facility] [address] [place], [address] RDW CV Normal 11.6-14.6 [facility] Comment on above: Result Comment: Canc elled via OM: Order cancelled - Patient discharged Performed By: #### L 500.4050, L100.0100 ####[facility] [address] [place], [address] RDW SD Normal 35.1-43.9 [facility] Comment on above: Result Comment: Canc elled via OM: Order cancelled - Patient discharged Performed By: #### L 500.4050, L100.0100 ####[facility] [address] [place], [address] WBC Normal 4.4-11.0 [facility] Comment on above: Result Comment: Canc elled via OM: Order cancelled - Patient discharged Performed By: #### L 500.4050, L100.0100 ####[facility] [address] [place], [address] Comprehensive Metabolic Prof ilon 05-05-2024 ALB Normal 3.2-5.0 [facility] Comment on above: Result Comment: Canc elled via OM: Order cancelled - Patient discharged Performed By: #### L 500.4050, L100.0100 ####[facility] [address] [place], [address] ALK P Normal 45-117 [facility] Comment on above: Result Comment: Canc elled via OM: Order cancelled - Patient discharged Performed By: #### L 500.4050, L100.0100 ####[facility] [address] [place], [address] ALT Normal 16-61 [facility] Comment on above: Result Comment: Canc elled via OM: Order cancelled - Patient discharged Performed By: #### L 500.4050, L100.0100 ####[facility] [address] [place], [address] AST Normal 15-37 [facility] Comment on above: Result Comment: Canc elled via OM: Order cancelled - Patient discharged Performed By: #### L 500.4050, L100.0100 ####[facility] [address] [place], [address] BUN Normal 7-18 [facility] Comment on above: Result Comment: Canc elled via OM: Order cancelled - Patient discharged Performed By: #### L 500.4050, L100.0100 ####[facility] [address] [place], [address] BUN/CRE Normal 10-20 [facility] Comment on above: Result Comment: Canc elled via OM: Order cancelled - Patient discharged Performed By: #### L 500.4050, L100.0100 ####[facility] [address] [place], [address] CA,Total Normal 8.5-10.1 [facility] Comment on above: Result Comment: Canc elled via OM: Order cancelled - Patient discharged Performed By: #### L 500.4050, L100.0100 ####[facility] [address] [place], [address] CL Normal 98-107 [facility] Comment on above: Result Comment: Canc elled via OM: Order cancelled - Patient discharged Performed By: #### L 500.4050, L100.0100 ####[facility] [address] [place], [address] CO2 Normal 21.0-32.0 [facility] Comment on above: Result Comment: Canc elled via OM: Order cancelled - Patient discharged Performed By: #### L 500.4050, L100.0100 ####[facility] [address] [place], [address] CREAT,SERUM Normal 0.70-1.30 [facility] Comment on above: Result Comment: Canc elled via OM: Order cancelled - Patient discharged Performed By: #### L 500.4050, L100.0100 ####[facility] [address] [place], [address] EST GFR Normal >60 [facility] Comment on above: Result Comment: Canc elled via OM: Order cancelled - Patient discharged Performed By: #### L 500.4050, L100.0100 ####[facility] [address] [place], [address] EST GFR - AA Normal >60 [facility] Comment on above: Result Comment: Canc elled via OM: Order cancelled - Patient discharged Performed By: #### L 500.4050, L100.0100 ####[facility] [address] [place], [address] GAP Normal 5-15 [facility] Comment on above: Result Comment: Canc elled via OM: Order cancelled - Patient discharged Performed By: #### L 500.4050, L100.0100 ####[facility] [address] [place], [address] GLU Normal 74-106 [facility] Comment on above: Result Comment: Canc elled via OM: Order cancelled - Patient discharged Performed By: #### L 500.4050, L100.0100 ####[facility] [address] [place], [address] Potassium Normal 3.5-5.1 [facility] Comment on above: Result Comment: Canc elled via OM: Order cancelled - Patient discharged Performed By: #### L 500.4050, L100.0100 ####[facility] [address] [place], [address] T BILI Normal 0.20-1.00 [facility] Comment on above: Result Comment: Canc elled via OM: Order cancelled - Patient discharged Performed By: #### L 500.4050, L100.0100 ####[facility] [address] [place], [address] T PROT Normal 6.4-8.2 [facility] Comment on above: Result Comment: Canc elled via OM: Order cancelled - Patient discharged Performed By: #### L 500.4050, L100.0100 ####[facility] [address] [place], [address] Comprehensive Metabolic Profil Normal 136-145 [facility] Comment on above: Result Comment: Canc elled via OM: Order cancelled - Patient discharged Performed By: #### L 500.4050, L100.0100 ####[facility] [address] [place], [address] CBC W/Diff, Automatedon 12-3 0-2023 Absolute Neut Normal 2.0-7.7 [facility] Comment on above: Result Comment: Canc elled via OM: Order cancelled - Patient discharged Performed By: #### L 500.4050, L100.0100 ####[facility] [address] [place], [address] HCT Normal 40-54 [facility] Comment on above: Result Comment: Canc elled via OM: Order cancelled - Patient discharged Performed By: #### L 500.4050, L100.0100 ####[facility] [address] [place], [address] HGB Normal 13.0-16.5 [facility] Comment on above: Result Comment: Canc elled via OM: Order cancelled - Patient discharged Performed By: #### L 500.4050, L100.0100 ####[facility] [address] [place], [address] MCH Normal 27.0-32.0 [facility] Comment on above: Result Comment: Canc elled via OM: Order cancelled - Patient discharged Performed By: #### L 500.4050, L100.0100 ####[facility] [address] [place], [address] MCHC Normal 32-36 [facility] Comment on above: Result Comment: Canc elled via OM: Order cancelled - Patient discharged Performed By: #### L 500.4050, L100.0100 ####[facility] [address] [place], [address] MCV Normal 80-94 [facility] Comment on above: Result Comment: Canc elled via OM: Order cancelled - Patient discharged Performed By: #### L 500.4050, L100.0100 ####[facility] [address] [place], [address] NEUT% Normal 47-70 [facility] Comment on above: Result Comment: Canc elled via OM: Order cancelled - Patient discharged Performed By: #### L 500.4050, L100.0100 ####[facility] [address] [place], [address] PLT Normal 150-450 [facility] Comment on above: Result Comment: Canc elled via OM: Order cancelled - Patient discharged Performed By: #### L 500.4050, L100.0100 ####[facility] [address] [place], [address] RBC Normal 4.6-6.2 [facility] Comment on above: Result Comment: Canc elled via OM: Order cancelled - Patient discharged Performed By: #### L 500.4050, L100.0100 ####[facility] [address] [place], [address] RDW CV Normal 11.6-14.6 [facility] Comment on above: Result Comment: Canc elled via OM: Order cancelled - Patient discharged Performed By: #### L 500.4050, L100.0100 ####[facility] [address] [place], [address] RDW SD Normal 35.1-43.9 [facility] Comment on above: Result Comment: Canc elled via OM: Order cancelled - Patient discharged Performed By: #### L 500.4050, L100.0100 ####[facility] [address] [place], [address] WBC Normal 4.4-11.0 [facility] Comment on above: Result Comment: Canc elled via OM: Order cancelled - Patient discharged Performed By: #### L 500.4050, L100.0100 ####[facility] [address] [place], [address] Comprehensive Metabolic Prof ilon 05-04-2024 ALB Normal 3.2-5.0 [facility] Comment on above: Result Comment: Canc elled via OM: Order cancelled - Patient discharged Performed By: #### L 500.4050, L100.0100 ####[facility] [address] [place], [address] ALK P Normal 45-117 [facility] Comment on above: Result Comment: Canc elled via OM: Order cancelled - Patient discharged Performed By: #### L 500.4050, L100.0100 ####[facility] [address] [place], [address] ALT Normal 16-61 [facility] Comment on above: Result Comment: Canc elled via OM: Order cancelled - Patient discharged Performed By: #### L 500.4050, L100.0100 ####[facility] [address] [place], [address] AST Normal 15-37 [facility] Comment on above: Result Comment: Canc elled via OM: Order cancelled - Patient discharged Performed By: #### L 500.4050, L100.0100 ####[facility] [address] [place], [address] BUN Normal 7-18 [facility] Comment on above: Result Comment: Canc elled via OM: Order cancelled - Patient discharged Performed By: #### L 500.4050, L100.0100 ####[facility] [address] [place], [address] BUN/CRE Normal 10-20 [facility] Comment on above: Result Comment: Canc elled via OM: Order cancelled - Patient discharged Performed By: #### L 500.4050, L100.0100 ####[facility] [address] [place], [address] CA,Total Normal 8.5-10.1 [facility] Comment on above: Result Comment: Canc elled via OM: Order cancelled - Patient discharged Performed By: #### L 500.4050, L100.0100 ####[facility] [address] [place], [address] CL Normal 98-107 [facility] Comment on above: Result Comment: Canc elled via OM: Order cancelled - Patient discharged Performed By: #### L 500.4050, L100.0100 ####[facility] [address] [place], [address] CO2 Normal 21.0-32.0 [facility] Comment on above: Result Comment: Canc elled via OM: Order cancelled - Patient discharged Performed By: #### L 500.4050, L100.0100 ####[facility] [address] [place], [address] CREAT,SERUM Normal 0.70-1.30 [facility] Comment on above: Result Comment: Canc elled via OM: Order cancelled - Patient discharged Performed By: #### L 500.4050, L100.0100 ####[facility] [address] [place], [address] EST GFR Normal >60 [facility] Comment on above: Result Comment: Canc elled via OM: Order cancelled - Patient discharged Performed By: #### L 500.4050, L100.0100 ####[facility] [address] [place], [address] EST GFR - AA Normal >60 [facility] Comment on above: Result Comment: Canc elled via OM: Order cancelled - Patient discharged Performed By: #### L 500.4050, L100.0100 ####[facility] [address] [place], [address] GAP Normal 5-15 [facility] Comment on above: Result Comment: Canc elled via OM: Order cancelled - Patient discharged Performed By: #### L 500.4050, L100.0100 ####[facility] [address] [place], [address] GLU Normal 74-106 [facility] Comment on above: Result Comment: Canc elled via OM: Order cancelled - Patient discharged Performed By: #### L 500.4050, L100.0100 ####[facility] [address] [place], [address] Potassium Normal 3.5-5.1 [facility] Comment on above: Result Comment: Canc elled via OM: Order cancelled - Patient discharged Performed By: #### L 500.4050, L100.0100 ####[facility] [address] [place], [address] T BILI Normal 0.20-1.00 [facility] Comment on above: Result Comment: Canc elled via OM: Order cancelled - Patient discharged Performed By: #### L 500.4050, L100.0100 ####[facility] [address] [place], [address] T PROT Normal 6.4-8.2 [facility] Comment on above: Result Comment: Canc elled via OM: Order cancelled - Patient discharged Performed By: #### L 500.4050, L100.0100 ####[facility] [address] [place], [address] Comprehensive Metabolic Profil Normal 136-145 [facility] Comment on above: Result Comment: Canc elled via OM: Order cancelled - Patient discharged Performed By: #### L 500.4050, L100.0100 ####[facility] [address] [place], [address] CBC W/Diff, Automatedon 12-2 Absolute Neut Normal 2.0-7.7 [facility] Comment on above: Result Comment: Canc elled via OM: Order cancelled - Patient discharged Performed By: #### L 500.4050, L100.0100 ####[facility] [address] [place], [address] HCT Normal 40-54 [facility] Comment on above: Result Comment: Canc elled via OM: Order cancelled - Patient discharged Performed By: #### L 500.4050, L100.0100 ####[facility] [address] [place], [address] HGB Normal 13.0-16.5 [facility] Comment on above: Result Comment: Canc elled via OM: Order cancelled - Patient discharged Performed By: #### L 500.4050, L100.0100 ####[facility] [address] [place], [address] MCH Normal 27.0-32.0 [facility] Comment on above: Result Comment: Canc elled via OM: Order cancelled - Patient discharged Performed By: #### L 500.4050, L100.0100 ####[facility] [address] [place], [address] MCHC Normal 32-36 [facility] Comment on above: Result Comment: Canc elled via OM: Order cancelled - Patient discharged Performed By: #### L 500.4050, L100.0100 ####[facility] [address] [place], [address] MCV Normal 80-94 [facility] Comment on above: Result Comment: Canc elled via OM: Order cancelled - Patient discharged Performed By: #### L 500.4050, L100.0100 ####[facility] [address] [place], [address] NEUT% Normal 47-70 [facility] Comment on above: Result Comment: Canc elled via OM: Order cancelled - Patient discharged Performed By: #### L 500.4050, L100.0100 ####[facility] [address] [place], [address] PLT Normal 150-450 [facility] Comment on above: Result Comment: Canc elled via OM: Order cancelled - Patient discharged Performed By: #### L 500.4050, L100.0100 ####[facility] [address] [place], [address] RBC Normal 4.6-6.2 [facility] Comment on above: Result Comment: Canc elled via OM: Order cancelled - Patient discharged Performed By: #### L 500.4050, L100.0100 ####[facility] [address] [place], [address] RDW CV Normal 11.6-14.6 [facility] Comment on above: Result Comment: Canc elled via OM: Order cancelled - Patient discharged Performed By: #### L 500.4050, L100.0100 ####[facility] [address] [place], [address] RDW SD Normal 35.1-43.9 [facility] Comment on above: Result Comment: Canc elled via OM: Order cancelled - Patient discharged Performed By: #### L 500.4050, L100.0100 ####[facility] [address] [place], [address] WBC Normal 4.4-11.0 [facility] Comment on above: Result Comment: Canc elled via OM: Order cancelled - Patient discharged Performed By: #### L 500.4050, L100.0100 ####[facility] [address] [place], [address] Comprehensive Metabolic Prof ilon 05-03-2024 ALB Normal 3.2-5.0 [facility] Comment on above: Result Comment: Canc elled via OM: Order cancelled - Patient discharged Performed By: #### L 500.4050, L100.0100 ####[facility] [address] [place], [address] ALK P Normal 45-117 [facility] Comment on above: Result Comment: Canc elled via OM: Order cancelled - Patient discharged Performed By: #### L 500.4050, L100.0100 ####[facility] [address] [place], [address] ALT Normal 16-61 [facility] Comment on above: Result Comment: Canc elled via OM: Order cancelled - Patient discharged Performed By: #### L 500.4050, L100.0100 ####[facility] [address] [place], [address] AST Normal 15-37 [facility] Comment on above: Result Comment: Canc elled via OM: Order cancelled - Patient discharged Performed By: #### L 500.4050, L100.0100 ####[facility] [address] [place], [address] BUN Normal 7-18 [facility] Comment on above: Result Comment: Canc elled via OM: Order cancelled - Patient discharged Performed By: #### L 500.4050, L100.0100 ####[facility] [address] [place], [address] BUN/CRE Normal 10-20 [facility] Comment on above: Result Comment: Canc elled via OM: Order cancelled - Patient discharged Performed By: #### L 500.4050, L100.0100 ####[facility] [address] [place], [address] CA,Total Normal 8.5-10.1 [facility] Comment on above: Result Comment: Canc elled via OM: Order cancelled - Patient discharged Performed By: #### L 500.4050, L100.0100 ####[facility] [address] [place], [address] CL Normal 98-107 [facility] Comment on above: Result Comment: Canc elled via OM: Order cancelled - Patient discharged Performed By: #### L 500.4050, L100.0100 ####[facility] [address] [place], [address] CO2 Normal 21.0-32.0 [facility] Comment on above: Result Comment: Canc elled via OM: Order cancelled - Patient discharged Performed By: #### L 500.4050, L100.0100 ####[facility] [address] [place], [address] CREAT,SERUM Normal 0.70-1.30 [facility] Comment on above: Result Comment: Canc elled via OM: Order cancelled - Patient discharged Performed By: #### L 500.4050, L100.0100 ####[facility] [address] [place], [address] EST GFR Normal >60 [facility] Comment on above: Result Comment: Canc elled via OM: Order cancelled - Patient discharged Performed By: #### L 500.4050, L100.0100 ####[facility] [address] [place], [address] EST GFR - AA Normal >60 [facility] Comment on above: Result Comment: Canc elled via OM: Order cancelled - Patient discharged Performed By: #### L 500.4050, L100.0100 ####[facility] [address] [place], [address] GAP Normal 5-15 [facility] Comment on above: Result Comment: Canc elled via OM: Order cancelled - Patient discharged Performed By: #### L 500.4050, L100.0100 ####[facility] [address] [place], [address] GLU Normal 74-106 [facility] Comment on above: Result Comment: Canc elled via OM: Order cancelled - Patient discharged Performed By: #### L 500.4050, L100.0100 ####[facility] [address] [place], [address] Potassium Normal 3.5-5.1 [facility] Comment on above: Result Comment: Canc elled via OM: Order cancelled - Patient discharged Performed By: #### L 500.4050, L100.0100 ####[facility] [address] [place], [address] T BILI Normal 0.20-1.00 [facility] Comment on above: Result Comment: Canc elled via OM: Order cancelled - Patient discharged Performed By: #### L 500.4050, L100.0100 ####[facility] [address] [place], [address] T PROT Normal 6.4-8.2 [facility] Comment on above: Result Comment: Canc elled via OM: Order cancelled - Patient discharged Performed By: #### L 500.4050, L100.0100 ####[facility] [address] [place], [address] Comprehensive Metabolic Profil Normal 136-145 [facility] Comment on above: Result Comment: Canc elled via OM: Order cancelled - Patient discharged Performed By: #### L 500.4050, L100.0100 ####[facility] [address] [place], [address] CBC W/Diff, Automatedon 12-2 Absolute Neut Normal 2.0-7.7 [facility] Comment on above: Result Comment: Canc elled via OM: Order cancelled - Patient discharged Performed By: #### L 100.0100, L500.4050 ####[facility] [address] [place], [address] HCT Normal 40-54 [facility] Comment on above: Result Comment: Canc elled via OM: Order cancelled - Patient discharged Performed By: #### L 100.0100, L500.4050 ####[facility] [address] [place], [address] HGB Normal 13.0-16.5 [facility] Comment on above: Result Comment: Canc elled via OM: Order cancelled - Patient discharged Performed By: #### L 100.0100, L500.4050 ####[facility] [address] [place], [address] MCH Normal 27.0-32.0 [facility] Comment on above: Result Comment: Canc elled via OM: Order cancelled - Patient discharged Performed By: #### L 100.0100, L500.4050 ####[facility] [address] [place], [address] MCHC Normal 32-36 [facility] Comment on above: Result Comment: Canc elled via OM: Order cancelled - Patient discharged Performed By: #### L 100.0100, L500.4050 ####[facility] [address] [place], [address] MCV Normal 80-94 [facility] Comment on above: Result Comment: Canc elled via OM: Order cancelled - Patient discharged Performed By: #### L 100.0100, L500.4050 ####[facility] [address] [place], [address] NEUT% Normal 47-70 [facility] Comment on above: Result Comment: Canc elled via OM: Order cancelled - Patient discharged Performed By: #### L 100.0100, L500.4050 ####[facility] [address] [place], [address] PLT Normal 150-450 [facility] Comment on above: Result Comment: Canc elled via OM: Order cancelled - Patient discharged Performed By: #### L 100.0100, L500.4050 ####[facility] [address] [place], [address] RBC Normal 4.6-6.2 [facility] Comment on above: Result Comment: Canc elled via OM: Order cancelled - Patient discharged Performed By: #### L 100.0100, L500.4050 ####[facility] [address] [place], [address] RDW CV Normal 11.6-14.6 [facility] Comment on above: Result Comment: Canc elled via OM: Order cancelled - Patient discharged Performed By: #### L 100.0100, L500.4050 ####[facility] [address] [place], [address] RDW SD Normal 35.1-43.9 [facility] Comment on above: Result Comment: Canc elled via OM: Order cancelled - Patient discharged Performed By: #### L 100.0100, L500.4050 ####[facility] [address] [place], [address] WBC Normal 4.4-11.0 [facility] Comment on above: Result Comment: Canc elled via OM: Order cancelled - Patient discharged Performed By: #### L 100.0100, L500.4050 ####[facility] [address] [place], [address] Comprehensive Metabolic Prof ilon 05-02-2024 ALB Normal 3.2-5.0 [facility] Comment on above: Result Comment: Canc elled via OM: Order cancelled - Patient discharged Performed By: #### L 100.0100, L500.4050 ####[facility] [address] [place], [address] ALK P Normal 45-117 [facility] Comment on above: Result Comment: Canc elled via OM: Order cancelled - Patient discharged Performed By: #### L 100.0100, L500.4050 ####[facility] [address] [place], [address] ALT Normal 16-61 [facility] Comment on above: Result Comment: Canc elled via OM: Order cancelled - Patient discharged Performed By: #### L 100.0100, L500.4050 ####[facility] [address] [place], [address] AST Normal 15-37 [facility] Comment on above: Result Comment: Canc elled via OM: Order cancelled - Patient discharged Performed By: #### L 100.0100, L500.4050 ####[facility] [address] [place], [address] BUN Normal 7-18 [facility] Comment on above: Result Comment: Canc elled via OM: Order cancelled - Patient discharged Performed By: #### L 100.0100, L500.4050 ####[facility] [address] [place], [address] BUN/CRE Normal 10-20 [facility] Comment on above: Result Comment: Canc elled via OM: Order cancelled - Patient discharged Performed By: #### L 100.0100, L500.4050 ####[facility] [address] [place], [address] CA,Total Normal 8.5-10.1 [facility] Comment on above: Result Comment: Canc elled via OM: Order cancelled - Patient discharged Performed By: #### L 100.0100, L500.4050 ####[facility] [address] [place], [address] CL Normal 98-107 [facility] Comment on above: Result Comment: Canc elled via OM: Order cancelled - Patient discharged Performed By: #### L 100.0100, L500.4050 ####[facility] [address] [place], [address] CO2 Normal 21.0-32.0 [facility] Comment on above: Result Comment: Canc elled via OM: Order cancelled - Patient discharged Performed By: #### L 100.0100, L500.4050 ####[facility] [address] [place], [address] CREAT,SERUM Normal 0.70-1.30 [facility] Comment on above: Result Comment: Canc elled via OM: Order cancelled - Patient discharged Performed By: #### L 100.0100, L500.4050 ####[facility] [address] [place], [address] EST GFR Normal >60 [facility] Comment on above: Result Comment: Canc elled via OM: Order cancelled - Patient discharged Performed By: #### L 100.0100, L500.4050 ####[facility] [address] [place], [address] EST GFR - AA Normal >60 [facility] Comment on above: Result Comment: Canc elled via OM: Order cancelled - Patient discharged Performed By: #### L 100.0100, L500.4050 ####[facility] [address] [place], [address] GAP Normal 5-15 [facility] Comment on above: Result Comment: Canc elled via OM: Order cancelled - Patient discharged Performed By: #### L 100.0100, L500.4050 ####[facility] [address] [place], [address] GLU Normal 74-106 [facility] Comment on above: Result Comment: Canc elled via OM: Order cancelled - Patient discharged Performed By: #### L 100.0100, L500.4050 ####[facility] [address] [place], [address] Potassium Normal 3.5-5.1 [facility] Comment on above: Result Comment: Canc elled via OM: Order cancelled - Patient discharged Performed By: #### L 100.0100, L500.4050 ####[facility] [address] [place], [address] T BILI Normal 0.20-1.00 [facility] Comment on above: Result Comment: Canc elled via OM: Order cancelled - Patient discharged Performed By: #### L 100.0100, L500.4050 ####[facility] [address] [place], [address] T PROT Normal 6.4-8.2 [facility] Comment on above: Result Comment: Canc elled via OM: Order cancelled - Patient discharged Performed By: #### L 100.0100, L500.4050 ####[facility] [address] [place], [address] Comprehensive Metabolic Profil Normal 136-145 [facility] Comment on above: Result Comment: Canc elled via OM: Order cancelled - Patient discharged Performed By: #### L 100.0100, L500.4050 ####[facility] [address] [place], [address] CBC W/Diff, Automatedon 12-2 Absolute Neut Normal 2.0-7.7 [facility] Comment on above: Result Comment: Canc elled via OM: Order cancelled - Patient discharged Performed By: #### L 500.4050, L100.0100 ####[facility] [address] [place], [address] HCT Normal 40-54 [facility] Comment on above: Result Comment: Canc elled via OM: Order cancelled - Patient discharged Performed By: #### L 500.4050, L100.0100 ####[facility] [address] [place], [address] HGB Normal 13.0-16.5 [facility] Comment on above: Result Comment: Canc elled via OM: Order cancelled - Patient discharged Performed By: #### L 500.4050, L100.0100 ####[facility] [address] [place], [address] MCH Normal 27.0-32.0 [facility] Comment on above: Result Comment: Canc elled via OM: Order cancelled - Patient discharged Performed By: #### L 500.4050, L100.0100 ####[facility] [address] [place], [address] MCHC Normal 32-36 [facility] Comment on above: Result Comment: Canc elled via OM: Order cancelled - Patient discharged Performed By: #### L 500.4050, L100.0100 ####[facility] [address] [place], [address] MCV Normal 80-94 [facility] Comment on above: Result Comment: Canc elled via OM: Order cancelled - Patient discharged Performed By: #### L 500.4050, L100.0100 ####[facility] [address] [place], [address] NEUT% Normal 47-70 [facility] [facility] Comment on above: Result Comment: Canc elled via OM: Order cancelled - Patient discharged Performed By: #### L 500.4050, L100.0100 ####[facility] [address] [place], [address] PLT Normal 150-450 [facility] Comment on above: Result Comment: Canc elled via OM: Order cancelled - Patient discharged Performed By: #### L 500.4050, L100.0100 ####[facility] [address] [place], [address] RBC Normal 4.6-6.2 [facility] Comment on above: Result Comment: Canc elled via OM: Order cancelled - Patient discharged Performed By: #### L 500.4050, L100.0100 ####[facility] [address] [place], [address] RDW CV Normal 11.6-14.6 [facility] Comment on above: Result Comment: Canc elled via OM: Order cancelled - Patient discharged Performed By: #### L 500.4050, L100.0100 ####[facility] [address] [place], [address] RDW SD Normal 35.1-43.9 [facility] Comment on above: Result Comment: Canc elled via OM: Order cancelled - Patient discharged Performed By: #### L 500.4050, L100.0100 ####[facility] [address] [place], [address] WBC Normal 4.4-11.0 [facility] Comment on above: Result Comment: Canc elled via OM: Order cancelled - Patient discharged Performed By: #### L 500.4050, L100.0100 ####[facility] [address] [place], [address] Comprehensive Metabolic Prof ilon 05-01-2024 ALB Normal 3.2-5.0 [facility] Comment on above: Result Comment: Canc elled via OM: Order cancelled - Patient discharged Performed By: #### L 500.4050, L100.0100 ####[facility] [address] [place], [address] ALK P Normal 45-117 [facility] Comment on above: Result Comment: Canc elled via OM: Order cancelled - Patient discharged Performed By: #### L 500.4050, L100.0100 ####[facility] [address] [place], [address] ALT Normal 16-61 [facility] Comment on above: Result Comment: Canc elled via OM: Order cancelled - Patient discharged Performed By: #### L 500.4050, L100.0100 ####[facility] [address] [place], [address] AST Normal 15-37 [facility] Comment on above: Result Comment: Canc elled via OM: Order cancelled - Patient discharged Performed By: #### L 500.4050, L100.0100 ####[facility] [address] [place], [address] BUN Normal 7-18 [facility] Comment on above: Result Comment: Canc elled via OM: Order cancelled - Patient discharged Performed By: #### L 500.4050, L100.0100 ####[facility] [address] [place], [address] BUN/CRE Normal 10-20 [facility] Comment on above: Result Comment: Canc elled via OM: Order cancelled - Patient discharged Performed By: #### L 500.4050, L100.0100 ####[facility] [address] [place], [address] CA,Total Normal 8.5-10.1 [facility] Comment on above: Result Comment: Canc elled via OM: Order cancelled - Patient discharged Performed By: #### L 500.4050, L100.0100 ####[facility] [address] [place], [address] CL Normal 98-107 [facility] Comment on above: Result Comment: Canc elled via OM: Order cancelled - Patient discharged Performed By: #### L 500.4050, L100.0100 ####[facility] [address] [place], [address] CO2 Normal 21.0-32.0 [facility] Comment on above: Result Comment: Canc elled via OM: Order cancelled - Patient discharged Performed By: #### L 500.4050, L100.0100 ####[facility] [address] [place], [address] CREAT,SERUM Normal 0.70-1.30 [facility] Comment on above: Result Comment: Canc elled via OM: Order cancelled - Patient discharged Performed By: #### L 500.4050, L100.0100 ####[facility] [address] [place], [address] EST GFR Normal >60 [facility] Comment on above: Result Comment: Canc elled via OM: Order cancelled - Patient discharged Performed By: #### L 500.4050, L100.0100 ####[facility] [address] [place], [address] EST GFR - AA Normal >60 [facility] Comment on above: Result Comment: Canc elled via OM: Order cancelled - Patient discharged Performed By: #### L 500.4050, L100.0100 ####[facility] [address] [place], [address] GAP Normal 5-15 [facility] Comment on above: Result Comment: Canc elled via OM: Order cancelled - Patient discharged Performed By: #### L 500.4050, L100.0100 ####[facility] [address] [place], [address] GLU Normal 74-106 [facility] Comment on above: Result Comment: Canc elled via OM: Order cancelled - Patient discharged Performed By: #### L 500.4050, L100.0100 ####[facility] [address] [place], [address] Potassium Normal 3.5-5.1 [facility] Comment on above: Result Comment: Canc elled via OM: Order cancelled - Patient discharged Performed By: #### L 500.4050, L100.0100 ####[facility] [address] [place], [address] T BILI Normal 0.20-1.00 [facility] Comment on above: Result Comment: Canc elled via OM: Order cancelled - Patient discharged Performed By: #### L 500.4050, L100.0100 ####[facility] [address] [place], [address] T PROT Normal 6.4-8.2 [facility] Comment on above: Result Comment: Canc elled via OM: Order cancelled - Patient discharged Performed By: #### L 500.4050, L100.0100 ####[facility] [address] [place], [address] Comprehensive Metabolic Profil Normal 136-145 [facility] Comment on above: Result Comment: Canc elled via OM: Order cancelled - Patient discharged Performed By: #### L 500.4050, L100.0100 ####[facility] [address] [place], [address] CBC W/Diff, Automatedon 12-2 -2023 Absolute Lymph 0.83 X10 3/uL Normal 0.83-4.51 [facility] Comment on above: Performed By: #### L 100.0100, L500.4050 ####[facility] [address] [place], [address] Absolute Neut 3.6 X10 3/uL Normal 2.0-7.7 [facility] Comment on above: Performed By: #### L 100.0100, L500.4050 ####[facility] [address] [place], [address] Basophils/100 WBC (Bld) 0.6 % Normal 0-1 [facility] Comment on above: Performed By: #### L 100.0100, L500.4050 ####[facility] [address] [place], [address] Eosinophils/100 WBC (Bld) 3.7 % Normal 0-5 [facility] Comment on above: Performed By: #### L 100.0100, L500.4050 ####[facility] [address] [place], [address] Erythrocyte distribution width (RBC) [Ratio] 13.6 % Normal 11.6-14.6 [facility] Comment on above: Performed By: #### L 100.0100, L500.4050 ####[facility] [address] [place], [address] Hematocrit (Bld) [Volume fraction] 33.2 % Low 40-54 [facility] Comment on above: Performed By: #### L 100.0100, L500.4050 ####[facility] [address] [place], [address] Hemoglobin (Bld) [Mass/Vol] 10.8 g/dL Low 13.0-16.5 [facility] Comment on above: Performed By: #### L 100.0100, L500.4050 ####[facility] [address] [place], [address] IG% 0.800 Normal 0.0-0.9 [facility] Comment on above: Result Comment: IG% - Immature Granulocytes (promyelocytes, myelocytes andmetamyelocytes) > 1% indicates that a LEFT SHIFT is Present. Performed By: #### L 100.0100, L500.4050 ####[facility] [address] [place], [address] Lymphocytes/100 WBC (Bld) 16.2 % Low 19-41 [facility] Comment on above: Performed By: #### L 100.0100, L500.4050 ####[facility] [address] [place], [address] MCH (RBC) [Entitic mass] 31.6 pg Normal 27.0-32.0 [facility] Comment on above: Performed By: #### L 100.0100, L500.4050 ####[facility] [address] [place], [address] MCHC (RBC) [Mass/Vol] 32.5 g/dL Normal 32-36 [facility] Comment on above: Performed By: #### L 100.0100, L500.4050 ####[facility] [address] [place], [address] MCV (RBC) [Entitic vol] 97.1 fL High 80-94 [facility] Comment on above: Performed By: #### L 100.0100, L500.4050 ####[facility] [address] [place], [address] Monocytes/100 WBC (Bld) 9.0 % Normal 0-10 [facility] Comment on above: Performed By: #### L 100.0100, L500.4050 ####[facility] [address] [place], [address] Neutrophils/100 WBC (Bld) 69.7 % Normal 47-70 [facility] Comment on above: Performed By: #### L 100.0100, L500.4050 ####[facility] [address] [place], [address] Nucleated RBC (Bld) [#/Vol] 0 10*3/uL Normal 0-5 [facility] Comment on above: Performed By: #### L 100.0100, L500.4050 ####[facility] [address] [place], [address] Platelet mean volume (Bld) [Entitic vol] 9.4 fL Normal 6.2-12.0 [facility] Comment on above: Performed By: #### L 100.0100, L500.4050 ####[facility] [address] [place], [address] Platelets (Bld) [#/Vol] 146 10*3/uL Low 150-450 [facility] Comment on above: Performed By: #### L 100.0100, L500.4050 ####[facility] [address] [place], [address] RBC (Bld) [#/Vol] 3.42 10*6/uL Low 4.6-6.2 [facility] Comment on above: Performed By: #### L 100.0100, L500.4050 ####[facility] [address] [place], [address] RDW SD 48.3 fl High 35.1-43.9 [facility] Comment on above: Performed By: #### L 100.0100, L500.4050 ####[facility] [address] [place], [address] WBC (Bld) [#/Vol] 5.1 10*3/uL Normal 4.4-11.0 [facility] Comment on above: Performed By: #### L 100.0100, L500.4050 ####[facility] [address] [place], [address] Comprehensive Metabolic Prof [facility] 04-30-2024 Albumin [Mass/Vol] 2.4 g/dL Low 3.2-5.0 [facility] Comment on above: Performed By: #### L 100.0100, L500.4050 ####[facility] [address] [place], [address] Albumin/Globulin [Mass ratio] 0.8 {ratio} Low 0.9-2.4 [facility] Comment on above: Performed By: #### L 100.0100, L500.4050 ####[facility] [address] [place], [address] ALK P 129 U/L High 45-117 [facility] Comment on above: Performed By: #### L 100.0100, L500.4050 ####[facility] [address] [place], [address] ALT [Catalytic activity/Vol] 16 U/L Normal 16-61 [facility] Comment on above: Performed By: #### L 100.0100, L500.4050 ####[facility] [address] [place], [address] AST [Catalytic activity/Vol] 29 U/L Normal 15-37 [facility] Comment on above: Performed By: #### L 100.0100, L500.4050 ####[facility] [address] [place], [address] Bilirubin [Mass/Vol] 0.50 mg/dL Normal 0.20-1.00 [facility] Comment on above: Result Comment: For patients on eltrombopag therapy, use of Dimension [place] TBIL is not recommended. Performed By: #### L 100.0100, L500.4050 ####[facility] [address] [place], [address] BUN/CRE 15.9 RATIO Normal 10-20 [facility] Comment on above: Performed By: #### L 100.0100, L500.4050 ####[facility] [address] [place], [address] CA,Total 8.7 mg/dL Normal 8.5-10.1 [facility] Comment on above: Performed By: #### L 100.0100, L500.4050 ####[facility] [address] [place], [address] Chloride [Moles/Vol] 109 mmol/L High 98-107 [facility] Comment on above: Performed By: #### L 100.0100, L500.4050 ####[facility] [address] [place], [address] CO2 [Moles/Vol] 26.0 mmol/L Normal 21.0-32.0 [facility] Comment on above: Performed By: #### L 100.0100, L500.4050 ####[facility] [address] [place], [address] Creatinine [Mass/Vol] 0.82 mg/dL Normal 0.70-1.30 [facility] Comment on above: Result Comment: The validity of the calculated GFR GFRAA in patients over70 years has not been determined. Clinical correlation isessential. Performed By: #### L 100.0100, L500.4050 ####[facility] [address] [place], [address] ECRCL 70.02 ml/min Normal [facility] Comment on above: Performed By: #### L 100.0100, L500.4050 ####[facility] [address] [place], [address] EST GFR - AA 116 mL/min Normal >60 [facility] Comment on above: Result Comment: Afri can Libyan GFR Calc Performed By: #### L 100.0100, L500.4050 ####[facility] [address] [place], [address] GAP 5 Normal 5-15 [facility] Comment on above: Performed By: #### L 100.0100, L500.4050 ####[facility] [address] [place], [address] GFR/1.73 sq M.predicted among non-blacks MDRD (S/P/Bld) [Vol rate/Area] 96 mL/min/{1.73_m2} Normal >60 [facility] Comment on above: Result Comment: Non- GFR Calc Performed By: #### L 100.0100, L500.4050 ####[facility] [address] [place], [address] Globulin (S) [Mass/Vol] 3.1 g/dL Normal 2.2-4.2 [facility] Comment on above: Performed By: #### L 100.0100, L500.4050 ####[facility] [address] [place], [address] Glucose [Mass/Vol] 111 mg/dL High 74-106 [facility] Comment on above: Result Comment: Fast ing Glucose result from 100 to 125 mg/dLsuggests IMPAIRED HOMEOSTASIS per A.D.A. criteria. Performed By: #### L 100.0100, L500.4050 ####[facility] [address] [place], [address] Potassium [Moles/Vol] 3.9 mmol/L Normal 3.5-5.1 [facility] Comment on above: Performed By: #### L 100.0100, L500.4050 ####[facility] [address] [place], [address] Sodium [Moles/Vol] 140 mmol/L Normal 136-145 [facility] Comment on above: Performed By: #### L 100.0100, L500.4050 ####[facility] [address] [place], [address] T PROT 5.5 g/dL Low 6.4-8.2 [facility] Comment on above: Performed By: #### L 100.0100, L500.4050 ####[facility] [address] [place], [address] Urea nitrogen [Mass/Vol] 13 mg/dL Normal 7-18 [facility] Comment on above: Performed By: #### L 100.0100, L500.4050 ####[facility] [address] [place], [address] CBC W/Diff, Automatedon 12-2 Absolute Lymph 0.98 X10 3/uL Normal 0.83-4.51 [facility] Comment on above: Performed By: #### L 100.0100, L500.4050 ####[facility] [address] [place], [address] Absolute Neut 6.0 X10 3/uL Normal 2.0-7.7 [facility] Comment on above: Performed By: #### L 100.0100, L500.4050 ####[facility] [address] [place], [address] Basophils/100 WBC (Bld) 0.4 % Normal 0-1 [facility] Comment on above: Performed By: #### L 100.0100, L500.4050 ####[facility] [address] [place], [address] Eosinophils/100 WBC (Bld) 1.5 % Normal 0-5 [facility] Comment on above: Performed By: #### L 100.0100, L500.4050 ####[facility] [address] [place], [address] Erythrocyte distribution width (RBC) [Ratio] 13.7 % Normal 11.6-14.6 [facility] Comment on above: Performed By: #### L 100.0100, L500.4050 ####[facility] [address] [place], [address] Hematocrit (Bld) [Volume fraction] 34.4 % Low 40-54 [facility] Comment on above: Performed By: #### L 100.0100, L500.4050 ####[facility] [address] [place], [address] Hemoglobin (Bld) [Mass/Vol] 11.2 g/dL Low 13.0-16.5 [facility] Comment on above: Performed By: #### L 100.0100, L500.4050 ####[facility] [address] [place], [address] IG% 0.800 Normal 0.0-0.9 [facility] Comment on above: Result Comment: IG% - Immature Granulocytes (promyelocytes, myelocytes andmetamyelocytes) > 1% indicates that a LEFT SHIFT is Present. Performed By: #### L 100.0100, L500.4050 ####[facility] [address] [place], [address] Lymphocytes/100 WBC (Bld) 12.6 % Low 19-41 [facility] Comment on above: Performed By: #### L 100.0100, L500.4050 ####[facility] [address] [place], [address] MCH (RBC) [Entitic mass] 31.5 pg Normal 27.0-32.0 [facility] Comment on above: Performed By: #### L 100.0100, L500.4050 ####[facility] [address] [place], [address] MCHC (RBC) [Mass/Vol] 32.6 g/dL Normal 32-36 [facility] Comment on above: Performed By: #### L 100.0100, L500.4050 ####[facility] [address] [place], [address] MCV (RBC) [Entitic vol] 96.6 fL High 80-94 [facility] Comment on above: Performed By: #### L 100.0100, L500.4050 ####[facility] [address] [place], [address] Monocytes/100 WBC (Bld) 7.2 % Normal 0-10 [facility] Comment on above: Performed By: #### L 100.0100, L500.4050 ####[facility] [address] [place], [address] Neutrophils/100 WBC (Bld) 77.5 % High 47-70 [facility] Comment on above: Performed By: #### L 100.0100, L500.4050 ####[facility] [address] [place], [address] Nucleated RBC (Bld) [#/Vol] 0 10*3/uL Normal 0-5 [facility] Comment on above: Performed By: #### L 100.0100, L500.4050 ####[facility] [address] [place], [address] Platelet mean volume (Bld) [Entitic vol] 9.2 fL Normal 6.2-12.0 [facility] Comment on above: Performed By: #### L 100.0100, L500.4050 ####[facility] [address] [place], [address] Platelets (Bld) [#/Vol] 148 10*3/uL Low 150-450 [facility] Comment on above: Performed By: #### L 100.0100, L500.4050 ####[facility] [address] [place], [address] RBC (Bld) [#/Vol] 3.56 10*6/uL Low 4.6-6.2 [facility] Comment on above: Performed By: #### L 100.0100, L500.4050 ####[facility] [address] [place], [address] RDW SD 49.2 fl High 35.1-43.9 [facility] Comment on above: Performed By: #### L 100.0100, L500.4050 ####[facility] [address] [place], [address] WBC (Bld) [#/Vol] 7.8 10*3/uL Normal 4.4-11.0 [facility] Comment on above: Performed By: #### L 100.0100, L500.4050 ####[facility] [address] [place], [address] Comprehensive Metabolic [facility] ammy 04-29-2024 Albumin [Mass/Vol] 2.7 g/dL Low 3.2-5.0 [facility] Comment on above: Performed By: #### L 100.0100, L500.4050 ####[facility] [address] [place], [address] Albumin/Globulin [Mass ratio] 0.8 {ratio} Low 0.9-2.4 [facility] Comment on above: Performed By: #### L 100.0100, L500.4050 ####[facility] [address] [place], [address] ALK P 124 U/L High 45-117 [facility] Comment on above: Performed By: #### L 100.0100, L500.4050 ####[facility] [address] [place], [address] ALT [Catalytic activity/Vol] 17 U/L Normal 16-61 [facility] Comment on above: Performed By: #### L 100.0100, L500.4050 ####[facility] [address] [place], [address] AST [Catalytic activity/Vol] 33 U/L Normal 15-37 [facility] Comment on above: Performed By: #### L 100.0100, L500.4050 ####[facility] [address] [place], [address] Bilirubin [Mass/Vol] 0.60 mg/dL Normal 0.20-1.00 [facility] Comment on above: Result Comment: For patients on eltrombopag therapy, use of Dimension [place] TBIL is not recommended. Performed By: #### L 100.0100, L500.4050 ####[facility] [address] [place], [address] BUN/CRE 21.6 RATIO High 10-20 [facility] Comment on above: Performed By: #### L 100.0100, L500.4050 ####[facility] [address] [place], [address] CA,Total 8.6 mg/dL Normal 8.5-10.1 [facility] Comment on above: Performed By: #### L 100.0100, L500.4050 ####[facility] [address] [place], [address] Chloride [Moles/Vol] 110 mmol/L High 98-107 [facility] Comment on above: Performed By: #### L 100.0100, L500.4050 ####[facility] [address] [place], [address] CO2 [Moles/Vol] 25.0 mmol/L Normal 21.0-32.0 [facility] Comment on above: Performed By: #### L 100.0100, L500.4050 ####[facility] [address] [place], [address] Creatinine [Mass/Vol] 0.92 mg/dL Normal 0.70-1.30 [facility] Comment on above: Result Comment: The validity of the calculated GFR GFRAA in patients over70 years has not been determined. Clinical correlation isessential. Performed By: #### L 100.0100, L500.4050 ####[facility] [address] [place], [address] ECRCL 62.41 ml/min Normal [facility] Comment on above: Performed By: #### L 100.0100, L500.4050 ####[facility] [address] [place], [address] EST GFR - AA 101 mL/min Normal >60 [facility] Comment on above: Result Comment: Afri can Libyan GFR Calc Performed By: #### L 100.0100, L500.4050 ####[facility] [address] [place], [address] GAP 5 Normal 5-15 [facility] Comment on above: Performed By: #### L 100.0100, L500.4050 ####[facility] [address] [place], [address] GFR/1.73 sq M.predicted among non-blacks MDRD (S/P/Bld) [Vol rate/Area] 84 mL/min/{1.73_m2} Normal >60 [facility] Comment on above: Result Comment: Non- GFR Calc Performed By: #### L 100.0100, L500.4050 ####[facility] [address] [place], [address] Globulin (S) [Mass/Vol] 3.2 g/dL Normal 2.2-4.2 [facility] Comment on above: Performed By: #### L 100.0100, L500.4050 ####[facility] [address] [place], [address] Glucose [Mass/Vol] 103 mg/dL Normal 74-106 [facility] Comment on above: Result Comment: Fast ing Glucose result from 100 to 125 mg/dLsuggests IMPAIRED HOMEOSTASIS per A.D.A. criteria. Performed By: #### L 100.0100, L500.4050 ####[facility] [address] [place], [address] Potassium [Moles/Vol] 4.0 mmol/L Normal 3.5-5.1 [facility] Comment on above: Performed By: #### L 100.0100, L500.4050 ####[facility] [address] [place], [address] Sodium [Moles/Vol] 140 mmol/L Normal 136-145 [facility] Comment on above: Performed By: #### L 100.0100, L500.4050 ####[facility] [address] [place], [address] T PROT 5.9 g/dL Low 6.4-8.2 [facility] Comment on above: Performed By: #### L 100.0100, L500.4050 ####[facility] [address] [place], [address] Urea nitrogen [Mass/Vol] 20 mg/dL High 7-18 [facility] Comment on above: Performed By: #### L 100.0100, L500.4050 ####[facility] [address] [place], [address] Culture, Blood (WB)on 2023 CUB Normal [facility] Comment on above: Performed By: #### L 100.0100, L300.4310, L500.4050, L503.6005, L300.3900, M200.1000 ####[facility] [address] [place], [address] Basic Metabolic Profile (BMP )on 04-28-2024 BUN/CRE 28.3 RATIO High 10-20 [facility] Comment on above: Performed By: #### L 501.5200, L500.2500, L501.2300, L100.0100 ####[facility] [address] [place], [address] CA,Total 8.5 mg/dL Normal 8.5-10.1 [facility] Comment on above: Performed By: #### L 501.5200, L500.2500, L501.2300, L100.0100 ####[facility] [address] [place], [address] Chloride [Moles/Vol] 111 mmol/L High 98-107 [facility] Comment on above: Performed By: #### L 501.5200, L500.2500, L501.2300, L100.0100 ####[facility] [address] [place], [address] CO2 [Moles/Vol] 25.0 mmol/L Normal 21.0-32.0 [facility] Comment on above: Performed By: #### L 501.5200, L500.2500, L501.2300, L100.0100 ####[facility] [address] [place], [address] Creatinine [Mass/Vol] 0.85 mg/dL Normal 0.70-1.30 [facility] Comment on above: Result Comment: The validity of the calculated GFR GFRAA in patients over70 years has not been determined. Clinical correlation isessential. Performed By: #### L 501.5200, L500.2500, L501.2300, L100.0100 ####[facility] [address] [place], [address] ECRCL 67.35 ml/min Normal [facility] Comment on above: Performed By: #### L 501.5200, L500.2500, L501.2300, L100.0100 ####[facility] [address] [place], [address] EST GFR - AA 112 mL/min Normal >60 [facility] Comment on above: Result Comment: Afri can Libyan GFR Calc Performed By: #### L 501.5200, L500.2500, L501.2300, L100.0100 ####[facility] [address] [place], [address] GAP 4 Low 5-15 [facility] Comment on above: Performed By: #### L 501.5200, L500.2500, L501.2300, L100.0100 ####[facility] [address] [place], [address] GFR/1.73 sq M.predicted among non-blacks MDRD (S/P/Bld) [Vol rate/Area] 92 mL/min/{1.73_m2} Normal >60 [facility] Comment on above: Result Comment: Non- GFR Calc Performed By: #### L 501.5200, L500.2500, L501.2300, L100.0100 ####[facility] [address] [place], [address] Glucose [Mass/Vol] 90 mg/dL Normal 74-106 [facility] Comment on above: Performed By: #### L 501.5200, L500.2500, L501.2300, L100.0100 ####[facility] [address] [place], [address] Potassium [Moles/Vol] 3.9 mmol/L Normal 3.5-5.1 [facility] Comment on above: Performed By: #### L 501.5200, L500.2500, L501.2300, L100.0100 ####[facility] [address] [place], [address] Sodium [Moles/Vol] 140 mmol/L Normal 136-145 [facility] Comment on above: Performed By: #### L 501.5200, L500.2500, L501.2300, L100.0100 ####[facility] [address] [place], [address] Urea nitrogen [Mass/Vol] 24 mg/dL High 7-18 [facility] Comment on above: Performed By: #### L 501.5200, L500.2500, L501.2300, L100.0100 ####[facility] [address] [place], [address] CBC W/Diff, Automatedon 12-2 SMEAR COMMENT SCANNED Normal [facility] Comment on above: Performed By: #### L 501.5200, L500.2500, L501.2300, L100.0100 ####[facility] [address] [place], [address] Magnesiumon 04-28-2024 Magnesium [Mass/Vol] 1.6 mg/dL Normal 1.6-2.6 [facility] Comment on above: Performed By: #### L 501.5200, L500.2500, L501.2300, L100.0100 ####[facility] [address] [place], [address] Phosphoruson 04-28-2024 Phosphate [Mass/Vol] 2.4 mg/dL Low 2.5-4.9 [facility] Comment on above: Performed By: #### L 501.5200, L500.2500, L501.2300, L100.0100 ####[facility] [address], [address] Urine Cultureon 04-28-2024 URC Normal [facility] Comment on above: Performed By: #### M 100.678, M100.2200 ####[facility] [address] [place], [address] CBC W/Diff, Automatedon 04-06 SMEAR COMMENT SCANNED Normal [facility] Comment on above: Result Comment: LYMP HOPENIA PRESENTLEFT SHIFT: BANDS PRESENT 2+ Performed By: #### L 100.0100, L500.4050 ####[facility] [address], [address] Comprehensive Metabolic Prof ilon 04-27-2024 Albumin [Mass/Vol] 2.7 g/dL Low 3.2-5.0 [facility] Comment on above: Performed By: #### L 100.0100, L500.4050 ####[facility] [address] [place], [address] Albumin/Globulin [Mass ratio] 1.0 {ratio} Normal 0.9-2.4 [facility] Comment on above: Performed By: #### L 100.0100, L500.4050 ####[facility] [address] [place], [address] ALK P 78 U/L Normal 45-117 [facility] Comment on above: Performed By: #### L 100.0100, L500.4050 ####[facility] [address] [place], [address] ALT [Catalytic activity/Vol] 10 U/L Low 16-61 [facility] Comment on above: Performed By: #### L 100.0100, L500.4050 ####[facility] [address] [place], [address] AST [Catalytic activity/Vol] 27 U/L Normal 15-37 [facility] Comment on above: Performed By: #### L 100.0100, L500.4050 ####[facility] [address] [place], [address] Bilirubin [Mass/Vol] 0.90 mg/dL Normal 0.20-1.00 [facility] Comment on above: Result Comment: For patients on eltrombopag therapy, use of Dimension [place] TBIL is not recommended. Performed By: #### L 100.0100, L500.4050 ####[facility] [address] [place], [address] BUN/CRE 22.9 RATIO High 10-20 [facility] Comment on above: Performed By: #### L 100.0100, L500.4050 ####[facility] [address] [place], [address] CA,Total 8.3 mg/dL Low 8.5-10.1 [facility] Comment on above: Performed By: #### L 100.0100, L500.4050 ####[facility] [address] [place], [address] Chloride [Moles/Vol] 112 mmol/L High 98-107 [facility] Comment on above: Performed By: #### L 100.0100, L500.4050 ####[facility] [address] [place], [address] CO2 [Moles/Vol] 23.0 mmol/L Normal 21.0-32.0 [facility] Comment on above: Performed By: #### L 100.0100, L500.4050 ####[facility] [address] [place], [address] Creatinine [Mass/Vol] 1.09 mg/dL Normal 0.70-1.30 [facility] Comment on above: Result Comment: The validity of the calculated GFR GFRAA in patients over70 years has not been determined. Clinical correlation isessential. Performed By: #### L 100.0100, L500.4050 ####[facility] [address] [place], [address] ECRCL 48.85 ml/min Normal [facility] Comment on above: Performed By: #### L 100.0100, L500.4050 ####[facility] [address] [place], [address] EST GFR - AA 84 mL/min Normal >60 [facility] Comment on above: Result Comment: Afri can Libyan GFR Calc Performed By: #### L 100.0100, L500.4050 ####[facility] [address] [place], [address] GAP 6 Normal 5-15 [facility] Comment on above: Performed By: #### L 100.0100, L500.4050 ####[facility] [address] [place], [address] GFR/1.73 sq M.predicted among non-blacks MDRD (S/P/Bld) [Vol rate/Area] 69 mL/min/{1.73_m2} Normal >60 [facility] Comment on above: Result Comment: Non- GFR Calc Performed By: #### L 100.0100, L500.4050 ####[facility] [address] [place], [address] Globulin (S) [Mass/Vol] 2.6 g/dL Normal 2.2-4.2 [facility] Comment on above: Performed By: #### L 100.0100, L500.4050 ####[facility] [address] [place], [address] Glucose [Mass/Vol] 92 mg/dL Normal 74-106 [facility] Comment on above: Performed By: #### L 100.0100, L500.4050 ####[facility] [address] [place], [address] Potassium [Moles/Vol] 3.7 mmol/L Normal 3.5-5.1 [facility] Comment on above: Performed By: #### L 100.0100, L500.4050 ####[facility] [address] [place], [address] Sodium [Moles/Vol] 140 mmol/L Normal 136-145 [facility] Comment on above: Performed By: #### L 100.0100, L500.4050 ####[facility] [address] [place], [address] T PROT 5.3 g/dL Low 6.4-8.2 [facility] Comment on above: Performed By: #### L 100.0100, L500.4050 ####[facility] [address] [place], [address] Urea nitrogen [Mass/Vol] 25 mg/dL High 7-18 [facility] Comment on above: Performed By: #### L 100.0100, L500.4050 ####[facility] [address] [place], [address] 12 Lead EKGon 04-26-2024 12 Lead EKG Normal [facility] Abdomen/Pelvis W IV Cont ONL Yon 04-26-2024 Abdomen/Pelvis W IV Cont ONLY Normal [facility] CBC W/Diff, Automatedon 12- Absolute Lymph 0.11 X10 3/uL Low 0.83-4.51 [facility] Comment on above: Performed By: #### L 100.0100, L300.4310, L500.4050, L503.6005, L300.3900, M200.1000 ####[facility] [address] [place], [address] Absolute Neut 6.2 X10 3/uL Normal 2.0-7.7 [facility] Comment on above: Performed By: #### L 100.0100, L300.4310, L500.4050, L503.6005, L300.3900, M200.1000 ####[facility] [address] [place], [address] Basophils/100 WBC (Bld) 0.3 % Normal 0-1 [facility] Comment on above: Performed By: #### L 100.0100, L300.4310, L500.4050, L503.6005, L300.3900, M200.1000 ####[facility] [address] [place], [address] Eosinophils/100 WBC (Bld) 0.2 % Normal 0-5 [facility] Comment on above: Performed By: #### L 100.0100, L300.4310, L500.4050, L503.6005, L300.3900, M200.1000 ####[facility] [address] [place], [address] Erythrocyte distribution width (RBC) [Ratio] 13.2 % Normal 11.6-14.6 [facility] Comment on above: Performed By: #### L 100.0100, L300.4310, L500.4050, L503.6005, L300.3900, M200.1000 ####[facility] [address] [place], [address] Hematocrit (Bld) [Volume fraction] 37.9 % Low 40-54 [facility] Comment on above: Performed By: #### L 100.0100, L300.4310, L500.4050, L503.6005, L300.3900, M200.1000 ####[facility] [address] [place], [address] Hemoglobin (Bld) [Mass/Vol] 12.5 g/dL Low 13.0-16.5 [facility] Comment on above: Performed By: #### L 100.0100, L300.4310, L500.4050, L503.6005, L300.3900, M200.1000 ####[facility] [address] [place], [address] IG% 0.500 Normal 0.0-0.9 [facility] Comment on above: Result Comment: IG% - Immature Granulocytes (promyelocytes, myelocytes andmetamyelocytes) > 1% indicates that a LEFT SHIFT is Present. Performed By: #### L 100.0100, L300.4310, L500.4050, L503.6005, L300.3900, M200.1000 ####[facility] [address] [place], [address] Lymphocytes/100 WBC (Bld) 1.7 % Low 19-41 [facility] Comment on above: Performed By: #### L 100.0100, L300.4310, L500.4050, L503.6005, L300.3900, M200.1000 ####[facility] [address] [place], [address] MCH (RBC) [Entitic mass] 31.6 pg Normal 27.0-32.0 [facility] Comment on above: Performed By: #### L 100.0100, L300.4310, L500.4050, L503.6005, L300.3900, M200.1000 ####[facility] [address] [place], [address] MCHC (RBC) [Mass/Vol] 33.0 g/dL Normal 32-36 [facility] Comment on above: Performed By: #### L 100.0100, L300.4310, L500.4050, L503.6005, L300.3900, M200.1000 ####[facility] [address] [place], [address] MCV (RBC) [Entitic vol] 95.7 fL High 80-94 [facility] Comment on above: Performed By: #### L 100.0100, L300.4310, L500.4050, L503.6005, L300.3900, M200.1000 ####[facility] [address] [place], [address] Monocytes/100 WBC (Bld) 0.3 % Normal 0-10 [facility] Comment on above: Performed By: #### L 100.0100, L300.4310, L500.4050, L503.6005, L300.3900, M200.1000 ####[facility] [address] [place], [address] Neutrophils/100 WBC (Bld) 97.0 % High 47-70 [facility] Comment on above: Performed By: #### L 100.0100, L300.4310, L500.4050, L503.6005, L300.3900, M200.1000 ####[facility] [address] [place], [address] Nucleated RBC (Bld) [#/Vol] 0 10*3/uL Normal 0-5 [facility] Comment on above: Performed By: #### L 100.0100, L300.4310, L500.4050, L503.6005, L300.3900, M200.1000 ####[facility] [address] [place], [address] Platelet mean volume (Bld) [Entitic vol] 9.1 fL Normal 6.2-12.0 [facility] Comment on above: Performed By: #### L 100.0100, L300.4310, L500.4050, L503.6005, L300.3900, M200.1000 ####[facility] [address] [place], [address] Platelets (Bld) [#/Vol] 173 10*3/uL Normal 150-450 [facility] Comment on above: Performed By: #### L 100.0100, L300.4310, L500.4050, L503.6005, L300.3900, M200.1000 ####[facility] [address] [place], [address] RBC (Bld) [#/Vol] 3.96 10*6/uL Low 4.6-6.2 [facility] Comment on above: Performed By: #### L 100.0100, L300.4310, L500.4050, L503.6005, L300.3900, M200.1000 ####[facility] [address] [place], [address] RDW SD 47.1 fl High 35.1-43.9 [facility] Comment on above: Performed By: #### L 100.0100, L300.4310, L500.4050, L503.6005, L300.3900, M200.1000 ####[facility] [address] [place], [address] WBC (Bld) [#/Vol] 6.4 10*3/uL Normal 4.4-11.0 [facility] Comment on above: Performed By: #### L 100.0100, L300.4310, L500.4050, L503.6005, L300.3900, M200.1000 ####[facility] [address] [place], [address] Chest 1 View (Portable)on Chest 1 View (Portable) Normal [facility] Comprehensive Metabolic Prof ilon 04-26-2024 Albumin [Mass/Vol] 3.2 g/dL Normal 3.2-5.0 [facility] Comment on above: Performed By: #### L 100.0100, L300.4310, L500.4050, L503.6005, L300.3900, M200.1000 ####[facility] [address] [place], [address] Albumin/Globulin [Mass ratio] 1.0 {ratio} Normal 0.9-2.4 [facility] Comment on above: Performed By: #### L 100.0100, L300.4310, L500.4050, L503.6005, L300.3900, M200.1000 ####[facility] [address] [place], [address] ALK P 106 U/L Normal 45-117 [facility] Comment on above: Performed By: #### L 100.0100, L300.4310, L500.4050, L503.6005, L300.3900, M200.1000 ####[facility] [address] [place], [address] ALT [Catalytic activity/Vol] 49 U/L Normal 16-61 [facility] Comment on above: Performed By: #### L 100.0100, L300.4310, L500.4050, L503.6005, L300.3900, M200.1000 ####[facility] [address] [place], [address] AST [Catalytic activity/Vol] 28 U/L Normal 15-37 [facility] Comment on above: Performed By: #### L 100.0100, L300.4310, L500.4050, L503.6005, L300.3900, M200.1000 ####[facility] [address] [place], [address] Bilirubin [Mass/Vol] 0.70 mg/dL Normal 0.20-1.00 [facility] Comment on above: Result Comment: For patients on eltrombopag therapy, use of Dimension [place] TBIL is not recommended. Performed By: #### L 100.0100, L300.4310, L500.4050, L503.6005, L300.3900, M200.1000 ####[facility] [address] [place], [address] BUN/CRE 16.7 RATIO Normal 10-20 [facility] Comment on above: Performed By: #### L 100.0100, L300.4310, L500.4050, L503.6005, L300.3900, M200.1000 ####[facility] [address] [place], [address] CA,Total 9.2 mg/dL Normal 8.5-10.1 [facility] Comment on above: Performed By: #### L 100.0100, L300.4310, L500.4050, L503.6005, L300.3900, M200.1000 ####[facility] [address] [place], [address] Chloride [Moles/Vol] 107 mmol/L Normal 98-107 [facility] Comment on above: Performed By: #### L 100.0100, L300.4310, L500.4050, L503.6005, L300.3900, M200.1000 ####[facility] [address] [place], [address] CO2 [Moles/Vol] 24.0 mmol/L Normal 21.0-32.0 [facility] Comment on above: Performed By: #### L 100.0100, L300.4310, L500.4050, L503.6005, L300.3900, M200.1000 ####[facility] [address] [place], [address] Creatinine [Mass/Vol] 1.38 mg/dL High 0.70-1.30 [facility] Comment on above: Result Comment: The validity of the calculated GFR GFRAA in patients over70 years has not been determined. Clinical correlation isessential. Performed By: #### L 100.0100, L300.4310, L500.4050, L503.6005, L300.3900, M200.1000 ####[facility] [address] [place], [address] ECRCL 39.86 ml/min Normal [facility] Comment on above: Performed By: #### L 100.0100, L300.4310, L500.4050, L503.6005, L300.3900, M200.1000 ####[facility] [address] [place], [address] EST GFR - AA 64 mL/min Normal >60 [facility] Comment on above: Result Comment: Afri can Libyan GFR Calc Performed By: #### L 100.0100, L300.4310, L500.4050, L503.6005, L300.3900, M200.1000 ####[facility] [address] [place], [address] GAP 9 Normal 5-15 [facility] Comment on above: Performed By: #### L 100.0100, L300.4310, L500.4050, L503.6005, L300.3900, M200.1000 ####[facility] [address] [place], [address] GFR/1.73 sq M.predicted among non-blacks MDRD (S/P/Bld) [Vol rate/Area] 53 mL/min/{1.73_m2} Low >60 [facility] Comment on above: Result Comment: Non- GFR Calc Performed By: #### L 100.0100, L300.4310, L500.4050, L503.6005, L300.3900, M200.1000 ####[facility] [address] [place], [address] Globulin (S) [Mass/Vol] 3.1 g/dL Normal 2.2-4.2 [facility] Comment on above: Performed By: #### L 100.0100, L300.4310, L500.4050, L503.6005, L300.3900, M200.1000 ####[facility] [address] [place], [address] Glucose [Mass/Vol] 138 mg/dL High 74-106 [facility] Comment on above: Result Comment: Fast ing Glucose result greater than or equal to 126 mg/dLsuggests DIABETES MELLITUS per A.D.A. criteria. Performed By: #### L 100.0100, L300.4310, L500.4050, L503.6005, L300.3900, M200.1000 ####[facility] [address] [place], [address] Potassium [Moles/Vol] 3.5 mmol/L Normal 3.5-5.1 [facility] Comment on above: Performed By: #### L 100.0100, L300.4310, L500.4050, L503.6005, L300.3900, M200.1000 ####[facility] [address] [place], [address] Sodium [Moles/Vol] 140 mmol/L Normal 136-145 [facility] Comment on above: Performed By: #### L 100.0100, L300.4310, L500.4050, L503.6005, L300.3900, M200.1000 ####[facility] [address] [place], [address] T PROT 6.3 g/dL Low 6.4-8.2 [facility] Comment on above: Performed By: #### L 100.0100, L300.4310, L500.4050, L503.6005, L300.3900, M200.1000 ####[facility] [address] [place], [address] Urea nitrogen [Mass/Vol] 23 mg/dL High 7-18 [facility] Comment on above: Performed By: #### L 100.0100, L300.4310, L500.4050, L503.6005, L300.3900, M200.1000 ####[facility] [address] [place], [address] Consultation - Intensiviston 04-26-2024 Consultation - Porcelain Finish Sprayer Normal [facility] Emergency Department Summary on 04-26-2024 Emergency Department Summary Normal [facility] H AND P Exam - Hospitaliston 04-26-2024 H&P Exam - Hospitalist Normal [facility] Lactic Acidon 04-26-2024 Lactate [Moles/Vol] 4.1 mmol/L Invalid Interpretation Code 0.4-1.9 [facility] Comment on above: Result Comment: Crit ical Result(s) Called at: 19:36:46 04/26/2024 by:TED ENCARNACION TO RAMIRO MELCHOR. Results read back by same. Performed By: #### L 503.6005 ####[facility] [address] [place], [address] Lactate [Moles/Vol] 5.0 mmol/L Invalid Interpretation Code 0.4-1.9 [facility] Comment on above: Order Comment: Y Result Comment: Crit ical Result(s) Called at: 15:28:29 04/26/2024 by:TED ENCARNACION TO RAMIRO BYNUM. Results read back by same. Performed By: #### L 100.0100, L300.4310, L500.4050, L503.6005, L300.3900, M200.1000 ####[facility] [address] [place], [address] M100.678on 04-26-2024 M100.678 COVID NO RESULT FLUA NO RESULT FLUB NO RESULT RSV NO RESULT SARS-CoV-2 (COVID 19) Negative INFLUENZA A Negative INFLUENZA B Negative RSV PCR Negative Normal [facility] Comment on above: Performed By: #### M 100.678, M100.2200 ####[facility] [address] [place], [address] M8200.1000on 04-26-2024 M8200.1000 Normal Reference Range = Negative MRSA DNA Nose Ql LISSET+probe GeneXpert Instrument, PCR method MRSA PCR MRSA NEGATIVE Normal [facility] Comment on above: Performed By: #### M 8200.1000 ####[facility] [address] [place], [address] Magnesiumon 04-26-2024 Magnesium [Mass/Vol] 1.6 mg/dL Normal 1.6-2.6 [facility] Comment on above: Order Comment: Comme nts: May add to ED labsComments: may add to ED labs Performed By: #### L 501.5200, L501.2300 ####[facility] [address] [place], [address] Partial Thromboplast Timeon 04-26-2024 aPTT Coag (Bld) [Time] 27.0 s Normal 24.1-36.2 [facility] Comment on above: Performed By: #### L 100.0100, L300.4310, L500.4050, L503.6005, L300.3900, M200.1000 ####[facility] [address] [place], [address] Phosphoruson 04-26-2024 Phosphate [Mass/Vol] 1.6 mg/dL Low 2.5-4.9 [facility] Comment on above: Order Comment: Comme nts: May add to ED labsComments: may add to ED labs Performed By: #### L 501.5200, L501.2300 ####[facility] [address] [place], [address] Prothrombin Time w/INRon INR Coag (PPP) [Relative time] 1.1 {INR} Normal [facility] Comment on above: Performed By: #### L 100.0100, L300.4310, L500.4050, L503.6005, L300.3900, M200.1000 ####[facility] [address] [place], [address] PT Coag (PPP) [Time] 14.4 s Normal 11.7-14.9 [facility] Comment on above: Performed By: #### L 100.0100, L300.4310, L500.4050, L503.6005, L300.3900, M200.1000 ####[facility] [address] [place], [address] RESPIRATORY PANEL MOLECULARo n 04-26-2024 RP PANEL Normal [facility] Comment on above: Performed By: #### M 100.638 ####[facility] [address] [place], [address] Urinalysis, Completeon 04-26 RBC 0-5 SEEN Normal 0-5 [facility] Comment on above: Order Comment: ANABELLA TER SPECIMEN Performed By: #### L 400.0001 ####[facility] [address] [place], [address] BACTERIA 3+ /hpf Normal None Seen [facility] Comment on above: Order Comment: ANABELLA TER SPECIMEN Performed By: #### L 400.0001 ####[facility] [address] [place], [address] WBC 50-100 SEEN Normal 0-5 [facility] Comment on above: Order Comment: ANABELLA TER SPECIMEN Performed By: #### L 400.0001 ####[facility] [address] [place], [address] EPI,SQUAMOUS 0 SEEN Normal 0-5 [facility] Comment on above: Order Comment: ANABELLA TER SPECIMEN Performed By: #### L 400.0001 ####[facility] [address] [place], [address] Mucus Ql (Urine sed) 0 SEEN Normal [facility] Comment on above: Order Comment: ANABELLA TER SPECIMEN Performed By: #### L 400.0001 ####[facility] [address] [place], [address] Basic Metabolic Profile (BMP )on 02-06-2024 BUN/CRE 20.7 RATIO High 10-20 [facility] Comment on above: Performed By: #### L 500.2500, L501.5200 ####[facility] [address] [place], [address] CA,Total 9.6 mg/dL Normal 8.5-10.1 [facility] Comment on above: Performed By: #### L 500.2500, L501.5200 ####[facility] [address] [place], [address] Chloride [Moles/Vol] 104 mmol/L Normal 98-107 [facility] Comment on above: Performed By: #### L 500.2500, L501.5200 ####[facility] [address] [place], [address] CO2 [Moles/Vol] 26.0 mmol/L Normal 21.0-32.0 [facility] Comment on above: Performed By: #### L 500.2500, L501.5200 ####[facility] [address] [place], [address] Creatinine [Mass/Vol] 1.16 mg/dL Normal 0.70-1.30 [facility] Comment on above: Result Comment: The validity of the calculated GFR GFRAA in patients over70 years has not been determined. Clinical correlation isessential. Performed By: #### L 500.2500, L501.5200 ####[facility] [address] [place], [address] EST GFR - AA 78 mL/min Normal >60 [facility] Comment on above: Result Comment: Afri can Libyan GFR Calc Performed By: #### L 500.2500, L501.5200 ####[facility] [address] [place], [address] GAP 6 Normal 5-15 [facility] Comment on above: Performed By: #### L 500.2500, L501.5200 ####[facility] [address] [place], [address] GFR/1.73 sq M.predicted among non-blacks MDRD (S/P/Bld) [Vol rate/Area] 64 mL/min/{1.73_m2} Normal >60 [facility] Comment on above: Result Comment: Non- GFR Calc Performed By: #### L 500.2500, L501.5200 ####[facility] [address] [place], [address] Glucose [Mass/Vol] 106 mg/dL Normal 74-106 [facility] Comment on above: Result Comment: Fast ing Glucose result from 100 to 125 mg/dLsuggests IMPAIRED HOMEOSTASIS per A.D.A. criteria. Performed By: #### L 500.2500, L501.5200 ####[facility] [address] [place], [address] Potassium [Moles/Vol] 4.4 mmol/L Normal 3.5-5.1 [facility] Comment on above: Performed By: #### L 500.2500, L501.5200 ####[facility] [address] [place], [address] Sodium [Moles/Vol] 135 mmol/L Low 136-145 [facility] Comment on above: Performed By: #### L 500.2500, L501.5200 ####[facility] [address] [place], [address] Urea nitrogen [Mass/Vol] 24 mg/dL High - [facility] Comment on above: Performed By: #### L 500.2500, L501.5200 ####[facility] [address] [place], [address] Magnesiumon 02-06-2024 Magnesium [Mass/Vol] 2.3 mg/dL Normal 1.6-2.6 [facility] Comment on above: Performed By: #### L 500.2500, L501.5200 ####[facility] [address] [place], [address] Pacemaker Checkon 02-03-2024 Pacemaker Check Normal [facility] CNPNon 01-22-2024 [facility] Telephone (HCSIND) -------- ADI LUND ([id number]) 1945 M Date Time Provider Department 01/22/24 MARISELA IRVIN [facility] During your visit today, we recorded the following information about you: Marisela Irvin LPN 01/22/2024 9:33 AM Signed [phone] full unable to leave message. [phone] wrong number (Gentleman stated that this was the [facility]) Marisela Irvin LPN Central Admissions Intake Nurse Marisela Irvin LPN 01/23/2024 9:33 AM Signed Spoke to Radha, she stated that they have choosen to go with a different home care agency. I let her know that we will cancel this referral and if they need anything further from us to have the PCP send a new referral, Radha verbalized understanding. Marisela Irvin LPN [facility] Admissions Intake Nurse Allergies As of Date: 01/22/2024 (No Known Allergies) Date Reviewed: 09/19/2022 Reviewed by: Willie Haywood MD - Fully Assessed Reason for Visit: Home Care [4073] Cmt: Confirmation call Prescriptions as of 01/23/2024 - carbidopa-levodopa (SINEMET 25-100) 25-100 mg per tablet Take 1.5 tablets by mouth four times daily. - sertraline (ZOLOFT) 100 mg tablet Take 1 tablet by mouth once daily. - ramipril (ALTACE) 10 mg capsule - cholecalciferol, vitamin D3, (VITAMIN D3 ORAL) Take by mouth. - ascorbic acid (VITAMIN C ORAL) Take by mouth. - amLODIPine (NORVASC) 5 mg tablet Take 1 tablet by mouth once daily. - LIPITOR 80 MG TAB Take one(1) tablet daily. - DIGITEK 250 MCG TAB Take by mouth. - metoprolol succinate ER (TOPROL XL) 50 mg 24 hr tablet Take 50 mg by mouth once daily. - ECOTRIN LOW STRENGTH 81 MG TAB Take one(1) tablet daily. Problem List As Of Date 01/22/2024 Noted Resolved INGUINAL HERNIA, UNILAT, RECURRENT W/O GANGRENE* 5 HERNIA INGUINAL,UNILATERA L(left) [K40.90] 03/05/2005 Parkinson disease (HCC) [G20.A1] 09/23/2021 Encounter Status:Closed by MARISELA IRVIN on 01/22/24 [facility] 2 [facility]son 01-21-2024 Ankle 2 Views Normal [facility] 01-21-2024 [facility] Telephone (HCSIND) -------- ADI LUND ([id number]) 1945 M Date Time Provider Department 01/21/24 MARISELA IRVIN During your visit today, we recorded the following information about you: Marisela Irvin LPN 01/21/2024 2:03 PM Signed Spoke to Val at Dr. Joel's office, she will confirm if the Doctor will follow and call back. Marisela Irvin LPN [facility]missions Intake Nurse Marisela Irvin LPN 01/22/2024 9:25 AM Signed Spoke janak Juarez who confirmed that Dr. Juan Carlos Joel will follow. Marisela Irvin LPN [facility]missions Intake Nurse Marisela Irvin LPN 01/23/2024 9:46 AM Signed Spoke Karolina to informed her that I ahd spoken to the Pt and that they have decided to go with a different home health agency so the referral will be cancelled at this time. Marisela Irvin LPN Central Admissions intake Nurse. Allergies As of Date: 01/21/2024 (No Known Allergies) Date Reviewed: 09/19/2022 Reviewed by: Willie Haywood MD - Fully Assessed Reason for Visit: Home Care [4073] Cmt: to follow Prescriptions as of 01/23/2024 - carbidopa-levodopa (SINEMET 25-100) 25-100 mg per tablet Take 1.5 tablets by mouth four times daily. - sertraline (ZOLOFT) 100 mg tablet Take 1 tablet by mouth once daily. - ramipril (ALTACE) 10 mg capsule - cholecalciferol, vitamin D3, (VITAMIN D3 ORAL) Take by mouth. - ascorbic acid (VITAMIN C ORAL) Take by mouth. - amLODIPine (NORVASC) 5 mg tablet Take 1 tablet by mouth once daily. - LIPITOR 80 MG TAB Take one(1) tablet daily. - DIGITEK 250 MCG TAB Take by mouth. - metoprolol succinate ER (TOPROL XL) 50 mg 24 hr tablet Take 50 mg by mouth once daily. - ECOTRIN LOW STRENGTH 81 MG TAB Take one(1) tablet daily. Problem List As Of Date 01/21/2024 Noted Resolved INGUINAL HERNIA, UNILAT, RECURRENT W/O GANGRENE* 5 HERNIA INGUINAL,UNILATERA L(left) [K40.90] 03/05/2005 Parkinson disease (HCC) [G20.A1] 09/23/2021 Encounter Status:Closed by MARISELA IRVIN on 01/21/[address] [facility] Discharge Instructionon 01-04 Discharge Instruction Normal [facility] Knee 1 or 2 Viewson 01-21-20 Knee 1 or 2 Views Normal [facility] Basic Metabolic Profile (BMP )on 01-19-2024 BUN/CRE 38.5 RATIO High 10-20 [facility] Comment on above: Performed By: #### L 500.2500, L100.0100 ####[facility] [address] [place], [address] CA,Total 9.3 mg/dL Normal 8.5-10.1 [facility] Comment on above: Performed By: #### L 500.2500, L100.0100 ####[facility] [address] [place], [address] Chloride [Moles/Vol] 111 mmol/L High 98-107 [facility] Comment on above: Performed By: #### L 500.2500, L100.0100 ####[facility] [address] [place], [address] CO2 [Moles/Vol] 23.0 mmol/L Normal 21.0-32.0 [facility] Comment on above: Performed By: #### L 500.2500, L100.0100 ####[facility] [address] [place], [address] Creatinine [Mass/Vol] 1.22 mg/dL Normal 0.70-1.30 [facility] Comment on above: Result Comment: The validity of the calculated GFR GFRAA in patients over70 years has not been determined. Clinical correlation isessential. Performed By: #### L 500.2500, L100.0100 ####[facility] [address] [place], [address] ECRCL 42.14 ml/min Normal [facility] Comment on above: Performed By: #### L 500.2500, L100.0100 ####[facility] [address] [place], [address] EST GFR - AA 73 mL/min Normal >60 [facility] Comment on above: Result Comment: Afri can Libyan GFR Calc Performed By: #### L 500.2500, L100.0100 ####[facility] [address] [place], [address] GAP 5 Normal 5-15 [facility] Comment on above: Performed By: #### L 500.2500, L100.0100 ####[facility] [address] [place], [address] GFR/1.73 sq M.predicted among non-blacks MDRD (S/P/Bld) [Vol rate/Area] 61 mL/min/{1.73_m2} Normal >60 [facility] Comment on above: Result Comment: Non- GFR Calc Performed By: #### L 500.2500, L100.0100 ####[facility] [address] [place], [address] Glucose [Mass/Vol] 90 mg/dL Normal 74-106 [facility] Comment on above: Performed By: #### L 500.2500, L100.0100 ####[facility] [address] [place], [address] Potassium [Moles/Vol] 4.9 mmol/L Normal 3.5-5.1 [facility] Comment on above: Performed By: #### L 500.2500, L100.0100 ####[facility] [address] [place], [address] Sodium [Moles/Vol] 139 mmol/L Normal 136-145 [facility] Comment on above: Performed By: #### L 500.2500, L100.0100 ####[facility] [address] [place], [address] Urea nitrogen [Mass/Vol] 47 mg/dL High 7-18 [facility] Comment on above: Performed By: #### L 500.2500, L100.0100 ####[facility] [address] [place], [address] CBC W/Diff, Automatedon 01-04-2023 Absolute Lymph 1.28 X10 3/uL Normal 0.83-4.51 [facility] Comment on above: Performed By: #### L 500.2500, L100.0100 ####[facility] [address] [place], [address] Absolute Neut 6.1 X10 3/uL Normal 2.0-7.7 [facility] Comment on above: Performed By: #### L 500.2500, L100.0100 ####[facility] [address] [place], [address] Basophils/100 WBC (Bld) 0.6 % Normal 0-1 [facility] Comment on above: Performed By: #### L 500.2500, L100.0100 ####[facility] [address] [place], [address] Eosinophils/100 WBC (Bld) 1.3 % Normal 0-5 [facility] Comment on above: Performed By: #### L 500.2500, L100.0100 ####[facility] [address], [address] Erythrocyte distribution width (RBC) [Ratio] 12.8 % Normal 11.6-14.6 [facility] Comment on above: Performed By: #### L 500.2500, L100.0100 ####[facility] [address] [place], [address] Hematocrit (Bld) [Volume fraction] 32.2 % Low 40-54 [facility] Comment on above: Performed By: #### L 500.2500, L100.0100 ####[facility] [address] [place], [address] Hemoglobin (Bld) [Mass/Vol] 10.7 g/dL Low 13.0-16.5 [facility] Comment on above: Performed By: #### L 500.2500, L100.0100 ####[facility] [address] [place], [address] IG% 0.500 Normal 0.0-0.9 [facility] Comment on above: Result Comment: IG% - Immature Granulocytes (promyelocytes, myelocytes andmetamyelocytes) > 1% indicates that a LEFT SHIFT is Present. Performed By: #### L 500.2500, L100.0100 ####[facility] [address] [place], [address] Lymphocytes/100 WBC (Bld) 15.1 % Low 19-41 [facility] Comment on above: Performed By: #### L 500.2500, L100.0100 ####[facility] [address] [place], [address] MCH (RBC) [Entitic mass] 32.9 pg High 27.0-32.0 [facility] Comment on above: Performed By: #### L 500.2500, L100.0100 ####[facility] [address] [place], [address] MCHC (RBC) [Mass/Vol] 33.2 g/dL Normal 32-36 [facility] Comment on above: Performed By: #### L 500.2500, L100.0100 ####[facility] [address] [place], [address] MCV (RBC) [Entitic vol] 99.1 fL High 80-94 [facility] Comment on above: Performed By: #### L 500.2500, L100.0100 ####[facility] [address] [place], [address] Monocytes/100 WBC (Bld) 10.4 % High 0-10 [facility] Comment on above: Performed By: #### L 500.2500, L100.0100 ####[facility] [address] [place], [address] Neutrophils/100 WBC (Bld) 72.1 % High 47-70 [facility] Comment on above: Performed By: #### L 500.2500, L100.0100 ####[facility] [address] [place], [address] Nucleated RBC (Bld) [#/Vol] 0 10*3/uL Normal 0-5 [facility] Comment on above: Performed By: #### L 500.2500, L100.0100 ####[facility] [address] [place], [address] Platelet mean volume (Bld) [Entitic vol] 8.9 fL Normal 6.2-12.0 [facility] Comment on above: Performed By: #### L 500.2500, L100.0100 ####[facility] [address] [place], [address] Platelets (Bld) [#/Vol] 178 10*3/uL Normal 150-450 [facility] Comment on above: Performed By: #### L 500.2500, L100.0100 ####[facility] [address] [place], [address] RBC (Bld) [#/Vol] 3.25 10*6/uL Low 4.6-6.2 [facility] Comment on above: Performed By: #### L 500.2500, L100.0100 ####[facility] [address] [place], [address] RDW SD 46.2 fl High 35.1-43.9 [facility] Comment on above: Performed By: #### L 500.2500, L100.0100 ####[facility] [address] [place], [address] WBC (Bld) [#/Vol] 8.5 10*3/uL Normal 4.4-11.0 [facility] Comment on above: Performed By: #### L 500.2500, L100.0100 ####[facility] [address] [place], [address] 12 Lead EKGon 01-18-2024 12 Lead EKG Normal [facility] BNP,B-Type NATRIURETIC PEPTI Xiomara 01-18-2024 Natriuretic peptide B (Bld) [Mass/Vol] 58.4 pg/mL Normal 0-100 [facility] Comment on above: Performed By: #### L 500.2500, L501.5425, L503.6620, L100.0500 ####[facility] [address] [place], [address] Basic Metabolic Profile (BMP )on 01-18-2024 BUN/CRE 30.1 RATIO High 10-20 [facility] Comment on above: Order Comment: 1Y Performed By: #### L 500.2500, L501.5425, L503.6620, L100.0500 ####[facility] [address] [place], [address] CA,Total 9.3 mg/dL Normal 8.5-10.1 [facility] Comment on above: Order Comment: 1Y Performed By: #### L 500.2500, L501.5425, L503.6620, L100.0500 ####[facility] [address] [place], [address] Chloride [Moles/Vol] 108 mmol/L High 98-107 [facility] Comment on above: Order Comment: 1Y Performed By: #### L 500.2500, L501.5425, L503.6620, L100.0500 ####[facility] [address] [place], [address] CO2 [Moles/Vol] 20.0 mmol/L Low 21.0-32.0 [facility] Comment on above: Order Comment: 1Y Performed By: #### L 500.2500, L501.5425, L503.6620, L100.0500 ####[facility] [address] [place], [address] Creatinine [Mass/Vol] 1.83 mg/dL High 0.70-1.30 [facility] Comment on above: Order Comment: 1Y Result Comment: The validity of the calculated GFR GFRAA in patients over70 years has not been determined. Clinical correlation isessential. Performed By: #### L 500.2500, L501.5425, L503.6620, L100.0500 ####[facility] [address] [place], [address] ECRCL 30.22 ml/min Normal [facility] Comment on above: Order Comment: 1Y Performed By: #### L 500.2500, L501.5425, L503.6620, L100.0500 ####[facility] [address] [place], [address] EST GFR - AA 46 mL/min Low >60 [facility] Comment on above: Order Comment: 1Y Result Comment: Afri can Libyan GFR Calc Performed By: #### L 500.2500, L501.5425, L503.6620, L100.0500 ####[facility] [address] [place], [address] GAP 10 Normal 5-15 [facility] Comment on above: Order Comment: 1Y Performed By: #### L 500.2500, L501.5425, L503.6620, L100.0500 ####[facility] [address] [place], [address] GFR/1.73 sq M.predicted among non-blacks MDRD (S/P/Bld) [Vol rate/Area] 38 mL/min/{1.73_m2} Low >60 [facility] Comment on above: Order Comment: 1Y Result Comment: Non- GFR Calc Performed By: #### L 500.2500, L501.5425, L503.6620, L100.0500 ####[facility] [address] [place], [address] Glucose [Mass/Vol] 139 mg/dL High 74-106 [facility] Comment on above: Order Comment: 1Y Result Comment: Fast ing Glucose result greater than or equal to 126 mg/dLsuggests DIABETES MELLITUS per A.D.A. criteria. Performed By: #### L 500.2500, L501.5425, L503.6620, L100.0500 ####[facility] [address] [place], [address] Potassium [Moles/Vol] 4.2 mmol/L Normal 3.5-5.1 [facility] Comment on above: Order Comment: 1Y Performed By: #### L 500.2500, L501.5425, L503.6620, L100.0500 ####[facility] [address] [place], [address] Sodium [Moles/Vol] 138 mmol/L Normal 136-145 [facility] Comment on above: Order Comment: 1Y Performed By: #### L 500.2500, L501.5425, L503.6620, L100.0500 ####[facility] [address] [place], [address] Urea nitrogen [Mass/Vol] 55 mg/dL High 7-18 [facility] Comment on above: Order Comment: 1Y Performed By: #### L 500.2500, L501.5425, L503.6620, L100.0500 ####[facility] [address] [place], [address] CBC-Complete Blood Cnt No Di ffon 01-18-2024 Erythrocyte distribution width (RBC) [Ratio] 12.9 % Normal 11.6-14.6 [facility] Comment on above: Performed By: #### L 500.2500, L501.5425, L503.6620, L100.0500 ####[facility] [address] [place], [address] Hematocrit (Bld) [Volume fraction] 30.3 % Low 40-54 [facility] Comment on above: Performed By: #### L 500.2500, L501.5425, L503.6620, L100.0500 ####[facility] [address] [place], [address] Hemoglobin (Bld) [Mass/Vol] 10.6 g/dL Low 13.0-16.5 [facility] Comment on above: Performed By: #### L 500.2500, L501.5425, L503.6620, L100.0500 ####[facility] [facility] [address] [place], [address] MCH (RBC) [Entitic mass] 33.7 pg High 27.0-32.0 [facility] Comment on above: Performed By: #### L 500.2500, L501.5425, L503.6620, L100.0500 ####[facility] [address] [place], [address] MCHC (RBC) [Mass/Vol] 35.0 g/dL Normal 32-36 [facility] Comment on above: Performed By: #### L 500.2500, L501.5425, L503.6620, L100.0500 ####[facility] [address] [place], [address] MCV (RBC) [Entitic vol] 96.2 fL High 80-94 [facility] Comment on above: Performed By: #### L 500.2500, L501.5425, L503.6620, L100.0500 ####[facility] [address] [place], [address] Platelet mean volume (Bld) [Entitic vol] 9.5 fL Normal 6.2-12.0 [facility] Comment on above: Performed By: #### L 500.2500, L501.5425, L503.6620, L100.0500 ####[facility] [address] [place], [address] Platelets (Bld) [#/Vol] 177 10*3/uL Normal 150-450 [facility] Comment on above: Performed By: #### L 500.2500, L501.5425, L503.6620, L100.0500 ####[facility] [address] [place], [address] RBC (Bld) [#/Vol] 3.15 10*6/uL Low 4.6-6.2 [facility] Comment on above: Performed By: #### L 500.2500, L501.5425, L503.6620, L100.0500 ####[facility] [address] [place], [address] RDW SD 45.4 fl High 35.1-43.9 [facility] Comment on above: Performed By: #### L 500.2500, L501.5425, L503.6620, L100.0500 ####[facility] [address] [place], [address] WBC (Bld) [#/Vol] 6.4 10*3/uL Normal 4.4-11.0 [facility] Comment on above: Performed By: #### L 500.2500, L501.5425, L503.6620, L100.0500 ####[facility] [address] [place], [address] Chest 1 View (Portable)on Chest 1 View (Portable) Normal [facility] Emergency Department Summary on 01-18-2024 Emergency Department Summary Normal [facility] H AND P Exam - Hospitaliston 01-18-2024 H&P Exam - Hospitalist Normal [facility] L501.4020on 01-18-2024 TROPONIN-I HS 27 pg/mL Normal 3.0-78.0 [facility] Comment on above: Result Comment: Plea se Note: New Test Units and Gender Specific Reference Ranges. For more information see Policy Stat Procedure [place] High Sensitivity Troponin (TNIH) and attachments. Performed By: #### L 501.4020 ####[facility] [address] [place], [address] L501.5425on 01-18-2024 TROPONIN-I HS 17 pg/mL Normal 3.0-78.0 [facility] Comment on above: Order Comment: 1Y Result Comment: Plea se Note: New Test Units and Gender Specific Reference Ranges. For more information see Policy Stat Procedure [place] High Sensitivity Troponin (TNIH) and attachments. Performed By: #### L 500.2500, L501.5425, L503.6620, L100.0500 ####[facility] [address] [place], [address] Urinalysis, Completeon 01-17 BACTERIA 0 SEEN Normal None Seen [facility] Comment on above: Order Comment: COLLE CTOR TO SPECIFY Performed By: #### L 400.0001 ####[facility] [address] [place], [address] EPI,SQUAMOUS 0 SEEN Normal 0-5 [facility] Comment on above: Order Comment: ROBER CTOR TO SPECIFY Performed By: #### L 400.0001 ####[facility] [address] [place], [address] Mucus Ql (Urine sed) 0 SEEN Normal [facility] Comment on above: Order Comment: ROBER CTOR TO SPECIFY Performed By: #### L 400.0001 ####[facility] [address] [place], [address] RBC 0 SEEN Normal 0-[address] [place] [address] Comment on above: Order Comment: ROBER CTOR TO SPECIFY Performed By: #### L 400.0001 ####[facility] [address] [place], [address] WBC 0 SEEN Normal 0-[address] [place] [address] Comment on above: Order Comment: ROBER CTOR TO SPECIFY Performed By: #### L 400.0001 ####[facility] [address] [place], [address] Pacemaker Checkon 01-16-2024 Pacemaker Check Normal [facility] CVS/PACEMAKERon 12-31-2023 CVS/PACEMAKER Normal [facility] 12 Lead EKG performed by BMS on 12-19-2023 12 Lead EKG performed by BMS Normal [facility] Cardiology Visit Reporton Cardiology Visit Report Normal [facility] Pacemaker Checkon 12-19-2023 Pacemaker Check Normal [facility] Basic Metabolic Profile (BMP )on 12-17-2023 BUN/CRE 40.4 RATIO High 10-20 [facility] Comment on above: Order Comment: For C RT-D generator change Performed By: #### L 100.0500, L500.2500, L400.0001 ####[facility] [address] [place], [address] CA,Total 9.4 mg/dL Normal 8.5-10.1 [facility] Comment on above: Order Comment: For C RT-D generator change Performed By: #### L 100.0500, L500.2500, L400.0001 ####[facility] [address] [place], [address] Chloride [Moles/Vol] 104 mmol/L Normal 98-107 [facility] Comment on above: Order Comment: For C RT-D generator change Performed By: #### L 100.0500, L500.2500, L400.0001 ####[facility] [address] [place], [address] CO2 [Moles/Vol] 27.0 mmol/L Normal 21.0-32.0 [facility] Comment on above: Order Comment: For C RT-D generator change Performed By: #### L 100.0500, L500.2500, L400.0001 ####[facility] [address] [place], [address] Creatinine [Mass/Vol] 1.41 mg/dL High 0.70-1.30 [facility] Comment on above: Order Comment: For C RT-D generator change Result Comment: The validity of the calculated GFR GFRAA in patients over70 years has not been determined. Clinical correlation isessential. Performed By: #### L 100.0500, L500.2500, L400.0001 ####[facility] [address] [place], [address] EST GFR - AA 62 mL/min Normal >60 [facility] Comment on above: Order Comment: For C RT-D generator change Result Comment: Afri can Libyan GFR Calc Performed By: #### L 100.0500, L500.2500, L400.0001 ####[facility] [address] [place], [address] GAP 5 Normal 5-15 [facility] Comment on above: Order Comment: For C RT-D generator change Performed By: #### L 100.0500, L500.2500, L400.0001 ####[facility] [address] [place], [address] GFR/1.73 sq M.predicted among non-blacks MDRD (S/P/Bld) [Vol rate/Area] 51 mL/min/{1.73_m2} Low >60 [facility] Comment on above: Order Comment: For C RT-D generator change Result Comment: Non- GFR Calc Performed By: #### L 100.0500, L500.2500, L400.0001 ####[facility] [address] [place], [address] Glucose [Mass/Vol] 119 mg/dL High 74-106 [facility] Comment on above: Order Comment: For C RT-D generator change Result Comment: Fast ing Glucose result from 100 to 125 mg/dLsuggests IMPAIRED HOMEOSTASIS per A.D.A. criteria. Performed By: #### L 100.0500, L500.2500, L400.0001 ####[facility] [address] [place], [address] Potassium [Moles/Vol] 4.2 mmol/L Normal 3.5-5.1 [facility] Comment on above: Order Comment: For C RT-D generator change Performed By: #### L 100.0500, L500.2500, L400.0001 ####[facility] [address] [place], [address] Sodium [Moles/Vol] 136 mmol/L Normal 136-145 [facility] Comment on above: Order Comment: For C RT-D generator change Performed By: #### L 100.0500, L500.2500, L400.0001 ####[facility] [address] [place], [address] Urea nitrogen [Mass/Vol] 57 mg/dL High 7-18 [facility] Comment on above: Order Comment: For C RT-D generator change Performed By: #### L 100.0500, L500.2500, L400.0001 ####[facility] [address] [place], [address] CBC-Complete Blood Cnt No Di ffon 12-17-2023 Erythrocyte distribution width (RBC) [Ratio] 12.8 % Normal 11.6-14.6 [facility] Comment on above: Order Comment: Comme nts: For CELLULAR PHONE REPAIRER-D generator change Performed By: #### L 100.0500, L500.2500, L400.0001 ####[facility] [address] [place], [address] Hematocrit (Bld) [Volume fraction] 34.6 % Low 40-54 [facility] Comment on above: Order Comment: Comme nts: For CELLULAR PHONE REPAIRER-D generator change Performed By: #### L 100.0500, L500.2500, L400.0001 ####[facility] [address] [place], [address] Hemoglobin (Bld) [Mass/Vol] 11.7 g/dL Low 13.0-16.5 [facility] Comment on above: Order Comment: Comme nts: For CELLULAR PHONE REPAIRER-D generator change Performed By: #### L 100.0500, L500.2500, L400.0001 ####[facility] [address] [place], [address] MCH (RBC) [Entitic mass] 32.6 pg High 27.0-32.0 [facility] Comment on above: Order Comment: Comme nts: For CELLULAR PHONE REPAIRER-D generator change Performed By: #### L 100.0500, L500.2500, L400.0001 ####[facility] [address] [place], [address] MCHC (RBC) [Mass/Vol] 33.8 g/dL Normal 32-36 [facility] Comment on above: Order Comment: Comme nts: For CELLULAR PHONE REPAIRER-D generator change Performed By: #### L 100.0500, L500.2500, L400.0001 ####[facility] [address] [place], [address] MCV (RBC) [Entitic vol] 96.4 fL High 80-94 [facility] Comment on above: Order Comment: Comme nts: For CELLULAR PHONE REPAIRER-D generator change Performed By: #### L 100.0500, L500.2500, L400.0001 ####[facility] [address] [place], [address] Platelet mean volume (Bld) [Entitic vol] 9.0 fL Normal 6.2-12.0 [facility] Comment on above: Order Comment: Comme nts: For CELLULAR PHONE REPAIRER-D generator change Performed By: #### L 100.0500, L500.2500, L400.0001 ####[facility] [address] [place], [address] Platelets (Bld) [#/Vol] 204 10*3/uL Normal 150-450 [facility] Comment on above: Order Comment: Comme nts: For CELLULAR PHONE REPAIRER-D generator change Performed By: #### L 100.0500, L500.2500, L400.0001 ####[facility] [address] [place], [address] RBC (Bld) [#/Vol] 3.59 10*6/uL Low 4.6-6.2 [facility] Comment on above: Order Comment: Comme nts: For CELLULAR PHONE REPAIRER-D generator change Performed By: #### L 100.0500, L500.2500, L400.0001 ####[facility] [address] [place], [address] RDW SD 45.6 fl High 35.1-43.9 [facility] Comment on above: Order Comment: Comme nts: For CELLULAR PHONE REPAIRER-D generator change Performed By: #### L 100.0500, L500.2500, L400.0001 ####[facility] [address] [place], [address] WBC (Bld) [#/Vol] 6.5 10*3/uL Normal 4.4-11.0 [facility] Comment on above: Order Comment: Comme nts: For CELLULAR PHONE REPAIRER-D generator change Performed By: #### L 100.0500, L500.2500, L400.0001 ####[facility] [address] [place], [address] Lipid Profileon 12-17-2023 Cholesterol [Mass/Vol] 116 mg/dL Normal 200 [facility] Comment on above: Result Comment: <200 mg/dL Desirable 200-240 mg/dL Borderline >240 mg/dL High Risk Performed By: #### L 500.3400, L500.4100 ####[facility] [address] [place], [address] Cholesterol in HDL [Mass/Vol] 43 mg/dL Normal [facility] Comment on above: Result Comment: The drugs N-Acetylcysteine and Metamizole may falselydepress this assay. Reference Range HDL <40 mg/dL Low HDL Cholesterol HDL >or= 60 mg/dL High HDL Cholesterol Performed By: #### L 500.3400, L500.4100 ####[facility] [address] [place], [address] Cholesterol in LDL [Mass/Vol] 56 mg/dL Normal 0-130 [facility] Comment on above: Performed By: #### L 500.3400, L500.4100 ####[facility] [address] [place], [address] Cholesterol in VLDL [Mass/Vol] 17 mg/dL Normal 5-40 [facility] Comment on above: Performed By: #### L 500.3400, L500.4100 ####[facility] [address] [place], [address] Triglyceride [Mass/Vol] 86 mg/dL Normal [facility] Comment on above: Result Comment: The drugs N-Acetylcysteine and Metamizole may falselydepress this assay.Serum Triglycerides Reference Interval Normal <150 mg/dL Borderline high 150 - 199 mg/dL High 200 - 499 mg/dL Very High > or = 500 mg/dL Performed By: #### L 500.3400, L500.4100 ####[facility] [address] [place], [address] Liver Profileon 12-17-2023 Albumin [Mass/Vol] 3.7 g/dL Normal 3.2-5.0 [facility] Comment on above: Performed By: #### L 500.3400, L500.4100 ####[facility] [address] [place], [address] ALK P 102 U/L Normal 45-117 [facility] Comment on above: Performed By: #### L 500.3400, L500.4100 ####[facility] [address] [place], [address] ALT [Catalytic activity/Vol] 26 U/L Normal 16-61 [facility] Comment on above: Performed By: #### L 500.3400, L500.4100 ####[facility] [address] [place], [address] AST [Catalytic activity/Vol] 21 U/L Normal 15-37 [facility] Comment on above: Performed By: #### L 500.3400, L500.4100 ####[facility] [address] [place], [address] Bilirubin [Mass/Vol] 1.40 mg/dL High 0.20-1.00 [facility] Comment on above: Result Comment: For patients on eltrombopag therapy, use of Dimension [place] TBIL is not recommended. Performed By: #### L 500.3400, L500.4100 ####[facility] [address] [place], [address] Bilirubin.direct [Mass/Vol] 0.26 mg/dL Normal 0.00-0.30 [facility] Comment on above: Performed By: #### L 500.3400, L500.4100 ####[facility] [address] [place], [address] Globulin (S) [Mass/Vol] 3.2 g/dL Normal 2.2-4.2 [facility] Comment on above: Performed By: #### L 500.3400, L500.4100 ####[facility] [address] [place], [address] T PROT 6.9 g/dL Normal 6.4-8.2 [facility] Comment on above: Performed By: #### L 500.3400, L500.4100 ####[facility] [address] [place], [address] Urinalysis, Completeon 12-16 CAST,HYALINE 0-5 SEEN Normal 0-5 [facility] Comment on above: Order Comment: For C RT-D generator changeCOLLECTOR TO SPECIFY Performed By: #### L 100.0500, L500.2500, L400.0001 ####[facility] [address] [place], [address] WBC 0-5 SEEN Normal 0-5 [facility] Comment on above: Order Comment: For C RT-D generator changeCOLLECTOR TO SPECIFY Performed By: #### L 100.0500, L500.2500, L400.0001 ####[facility] [address] [place], [address] BACTERIA 0 SEEN Normal None Seen [facility] Comment on above: Order Comment: For C RT-D generator changeCOLLECTOR TO SPECIFY Performed By: #### L 100.0500, L500.2500, L400.0001 ####[facility] [address] [place], [address] EPI,SQUAMOUS 0 SEEN Normal 0-5 [facility] Comment on above: Order Comment: For C RT-D generator changeCOLLECTOR TO SPECIFY Performed By: #### L 100.0500, L500.2500, L400.0001 ####[facility] [address] [place], [address] Mucus Ql (Urine sed) 0 SEEN Normal [facility] Comment on above: Order Comment: For C RT-D generator changeCOLLECTOR TO SPECIFY Performed By: #### L 100.0500, L500.2500, L400.0001 ####[facility] [address] [place], [address] RBC 0 SEEN Normal 0-5 [facility] Comment on above: Order Comment: For C RT-D generator changeCOLLECTOR TO SPECIFY Performed By: #### L 100.0500, L500.2500, L400.0001 ####[facility] [address] [place], [address] Absolute lymphocyte countOrd ered By: Juan Carlos Joel on 08-08-2023 Lymphocytes Auto (Unsp spec) [#/Vol] 1.08 10*3/uL 0.83-4.51 [facility] Albumin Elph [Mass/Vol]Order ed By: Juan Carlos Joel on 08-08-2023 Albumin [Mass/Vol] 3.7 g/dL 2.9-4.4 [facility] Automated lymphocyte count a s percentage of total leukocytesOrdered By: Juan Carlos Joel on 08-08-2023 Lymphocytes/100 WBC Auto (Unsp spec) 15.1 % 19-41 [facility] Basophil percentageOrdered B y: Juan Carlos Joel on 08-08-2023 Basophils/100 WBC (Bld) 0.6 % 0-1 [facility] Bilirubin [Mass/Vol] 0.80 mg/dL 0.20-1.00 [facility] Comment on above: For patients on eltr ombopag therapy, use of Dimension [place] TBIL is not recommended. Chloride [Moles/Vol] 108 mmol/L 98-107 [facility] Eosinophils/100 WBC (Bld) 1.3 % 0-5 [facility] Glucose [Mass/Vol] 96 mg/dL 74-106 [facility] Hemoglobin (Bld) [Mass/Vol] 12.7 g/dL 13.0-16.5 [facility] Monocytes/100 WBC (Bld) 8.6 % 0-10 [facility] Neutrophils (Bld) [#/Vol] 5.3 10*3/uL 2.0-7.7 [facility] Neutrophils/100 WBC (Bld) 74.1 % 47-70 [facility] Potassium [Moles/Vol] 4.6 mmol/L 3.5-5.1 [facility] Protein [Mass/Vol] 6.8 g/dL 6.4-8.2 [facility] Sodium [Moles/Vol] 139 mmol/L 136-145 [facility] WBC (Bld) [#/Vol] 7.2 10*3/uL 4.4-11.0 [facility] Determination of erythrocyte mean corpuscular volume (MCV)Ordered By: Juan Carlos Joel on 08-08-2023 MCV (RBC) [Entitic vol] 97.8 fL 80-94 [facility] Erythrocyte distribution wid th ratioOrdered By: Juan Carlos Joel on 08-08-2023 Erythrocyte distribution width (RBC) [Ratio] 14.0 % 11.6-14.6 [facility] Erythrocyte distribution wid th standard deviationOrdered By: Juan Carlos Joel on 08-08-2023 Erythrocyte distribution width (RBC) [Entitic vol] 50.4 fL 35.1-43.9 [facility] Hematocrit Auto (Bld) [Volum e fraction]Ordered By: Juan Carlos Joel on 08-08-2023 Hematocrit (Bld) [Volume fraction] 39.7 % 40-54 [facility] Immature granulocytes/100 WB C Auto (Bld)Ordered By: Juan Carlos Joel on 08-08-2023 Immature granulocytes/100 WBC (Bld) 0.300 % 0.0-0.9 [facility] Comment on above: IG% - Immature Granu locytes (promyelocytes, myelocytes and metamyelocytes) > 1% indicates that a LEFT SHIFT is Present. Laboratory - Chemistry and C hemistry - challengeOrdered By: Juan Carlos Joel on 08-08-2023 Albumin/Globulin [Mass ratio] 1.2 {ratio} 0.9-2.4 [facility] ALP [Catalytic activity/Vol] 110 U/L 45-117 [facility] ALT [Catalytic activity/Vol] 16 U/L 16-61 [facility] CO2 [Moles/Vol] 25.0 mmol/L 21.0-32.0 [facility] Cobalamin (Vitamin B12) [Mass/Vol] 535 pg/mL 211-911 [facility] Globulin (S) [Mass/Vol] 3.1 g/dL 2.2-4.2 [facility] Urea nitrogen/Creatinine [Mass ratio] 24.3 mg/mg 10-20 [facility] Laboratory - Hematology and Cell countsOrdered By: Juan Carlos Joel on 08-08-2023 MCH (RBC) [Entitic mass] 31.3 pg 27.0-32.0 [facility] MCHC (RBC) [Mass/Vol] 32.0 g/dL 32-36 [facility] Nucleated RBC/100 WBC (Bld) [Ratio] 0 % 0-5 [facility] Platelet mean volume (Bld) [Entitic vol] 9.6 fL 6.2-12.0 [facility] Platelets (Bld) [#/Vol] 194 10*3/uL 150-450 [facility] No Panel InformationOrdered By: Juan Carlos Joel on 08-08-2023 Addendum Document Comment . [facility] Comment on above: The SPE pattern appe ars unremarkable. Evidence ofmonoclonal protein is not apparent.Performed at: [facility] [id number] Director: Pepe Finnegan PhD, Phone: [phone] Ipsfq-9-Rosokuzzl 0.2 g/dL 0.0-0.4 [facility] Enqlc-5-Edolbjytt 0.6 g/dL 0.4-1.0 [facility] Estimated GFR (MDRD) Amer 109 mL/min >60 [facility] Comment on above: GFR Calc Estimated GFR (MDRD) Non-Af Amer 90 mL/min >60 [facility] Comment on above: Non- GFR Calc Folate 27.50 ng/mL 3.1-55.4 [facility] Gamma Globulins 1.0 g/dL 0.4-1.8 [facility] Protein Fractions Elph [Inte rp]Ordered By: Juan Carlos Joel on 08-08-2023 Protein Fractions [Interp] Comment . [facility] Comment on above: Protein electrophore sis scan will follow via computer,mail, or freelance makeup artist delivery. RBC Auto (Bld) [#/Vol]Ordere d By: Juan Carlos Joel on 08-08-2023 RBC (Bld) [#/Vol] 4.06 10*6/uL 4.6-6.2 [facility] Serum albumin to globulin ra katie by protein electrophoresisOrdered By: Juan Carlos Joel on 08-08-2023 Albumin/Globulin Elph [Mass ratio] 1.3 0.7-1.7 [facility] Serum globulin measurement ( mass/volume)Ordered By: Juan Carlos Jeol on 08-08-2023 Globulin (S) [Mass/Vol] 2.8 g/dL 2.2-3.9 [facility] Serum or plasma beta globuli n measurement by electrophoresis (mass/volume)Ordered By: Juan Carlos Joel on 08-08-2023 Beta globulin Elph [Mass/Vol] 1.0 g/dL 0.7-1.3 [facility] Serum or plasma calcium jennifer urement (mass/volume)Ordered By: Juan Carlos Joel on 08-08-2023 Calcium [Mass/Vol] 9.3 mg/dL 8.5-10.1 [facility] Serum or plasma creatinine m easurement (mass/volume)Ordered By: Juan Carlos Joel on 08-08-2023 Creatinine [Mass/Vol] 0.86 mg/dL 0.70-1.30 [facility] Comment on above: The validity of the calculated GFR & GFRAA in patients over 70 years has not been determined. Clinical correlation is essential. Serum or plasma protein mono clonal measurement by electrophoresis (mass/volume)Ordered By: Juan Carlos Joel on 08-08-2023 Protein.monoclonal Elph [Mass/Vol] Not Observed g/dL Not Observed [facility] Serum or plasma thyroid stim ulating hormone (TSH) measurement (units/volume)Ordered By: Juan Carlos Joel on 08-08-2023 TSH Qn 1.02 uIU/mL 0.358-3.74 [facility] Serum or plasma urea nitroge n measurement (mass/volume)Ordered By: Juan Carlos Joel on 08-08-2023 Urea nitrogen [Mass/Vol] 21 mg/dL 7-18 [facility] Thin prep Papanicolaou smear with manual screeningOrdered By: Juan Carlos Joel on 08-08-2023 Thin prep Papanicolaou smear with manual screening 3.7 g/dL 3.2-5.0 [facility] Thin prep Papanicolaou smear with manual screening 19 U/L 15-37 [facility] Thin prep Papanicolaou smear with manual screening 6 5-15 [facility] Total protein bloodOrdered B y: Juan Carlos Joel on 08-08-2023 Protein [Mass/Vol] 6.5 g/dL 6.0-8.5 [facility] Basophil percentageOrdered B y: Pamela Mackenzie on 07-15-2023 Chloride [Moles/Vol] 108 mmol/L 98-107 [facility] Glucose [Mass/Vol] 114 mg/dL 74-106 [facility] Comment on above: Fasting Glucose resu lt from 100 to 125 mg/dL suggests IMPAIRED HOMEOSTASIS per A.D.A. criteria. Potassium [Moles/Vol] 4.2 mmol/L 3.5-5.1 [facility] Sodium [Moles/Vol] 140 mmol/L 136-145 [facility] Laboratory - Chemistry and C hemistry - challengeOrdered By: Pamela Mackenzie on 07-15-2023 CO2 [Moles/Vol] 28.0 mmol/L 21.0-32.0 [facility] Urea nitrogen/Creatinine [Mass ratio] 31.4 mg/mg 10-20 [facility] No Panel InformationOrdered By: Pamela Mackenzie on 07-15-2023 Estimated GFR (MDRD) Amer 94 mL/min >60 [facility] Comment on above: GFR Calc Estimated GFR (MDRD) Non-Af Amer 78 mL/min >60 [facility] Comment on above: Non- GFR Calc Serum or plasma calcium jennifer urement (mass/volume)Ordered By: Pamela Mackenzie on 07-15-2023 Calcium [Mass/Vol] 9.3 mg/dL 8.5-10.1 [facility] Serum or plasma creatinine m easurement (mass/volume)Ordered By: Pamela Mackenzie on 07-15-2023 Creatinine [Mass/Vol] 0.99 mg/dL 0.70-1.30 [facility] Comment on above: The validity of the calculated GFR & GFRAA in patients over 70 years has not been determined. Clinical correlation is essential. Serum or plasma urea nitroge n measurement (mass/volume)Ordered By: Pamela Mackenzie on 07-15-2023 Urea nitrogen [Mass/Vol] 31 mg/dL 7-18 [facility] Thin prep Papanicolaou smear with manual screeningOrdered By: Pamela Mackenzie on 07-15-2023 Thin prep Papanicolaou smear with manual screening 4 5-15 [facility] Absolute lymphocyte countOrd ered By: Pamela Mackenzie on 06-24-2023 Lymphocytes Auto (Unsp spec) [#/Vol] 1.13 10*3/uL 0.83-4.51 [facility] Automated lymphocyte count a s percentage of total leukocytesOrdered By: Pamela Mackenzie on 06-24-2023 Lymphocytes/100 WBC Auto (Unsp spec) 18.9 % 19-41 [facility] Basophil percentageOrdered B y: Pamela Mackenzie on 06-24-2023 Basophils/100 WBC (Bld) 0.3 % 0-1 [facility] Bilirubin [Mass/Vol] 0.90 mg/dL 0.20-1.00 [facility] Comment on above: For patients on eltr ombopag therapy, use of Dimension [place] TBIL is not recommended. Chloride [Moles/Vol] 112 mmol/L 98-107 [facility] Eosinophils/100 WBC (Bld) 2.2 % 0-5 [facility] Glucose [Mass/Vol] 101 mg/dL 74-106 [facility] Comment on above: Fasting Glucose resu lt from 100 to 125 mg/dL suggests IMPAIRED HOMEOSTASIS per A.D.A. criteria. Hemoglobin (Bld) [Mass/Vol] 12.5 g/dL 13.0-16.5 [facility] Monocytes/100 WBC (Bld) 9.7 % 0-10 [facility] Neutrophils (Bld) [#/Vol] 4.1 10*3/uL 2.0-7.7 [facility] Neutrophils/100 WBC (Bld) 68.2 % 47-70 [facility] Potassium [Moles/Vol] 4.4 mmol/L 3.5-5.1 [facility] Protein [Mass/Vol] 6.8 g/dL 6.4-8.2 [facility] Sodium [Moles/Vol] 141 mmol/L 136-145 [facility] WBC (Bld) [#/Vol] 6.0 10*3/uL 4.4-11.0 [facility] Determination of erythrocyte mean corpuscular volume (MCV)Ordered By: Pamela Mackenzie on 06-24-2023 MCV (RBC) [Entitic vol] 98.2 fL 80-94 [facility] Erythrocyte distribution wid th ratioOrdered By: Pamela Mackenzie on 06-24-2023 Erythrocyte distribution width (RBC) [Ratio] 13.7 % 11.6-14.6 [facility] Erythrocyte distribution wid th standard deviationOrdered By: Pamela Mackenzie on 06-24-2023 Erythrocyte distribution width (RBC) [Entitic vol] 48.9 fL 35.1-43.9 [facility] Hematocrit Auto (Bld) [Volum e fraction]Ordered By: Pamela Mackenzie on 06-24-2023 Hematocrit (Bld) [Volume fraction] 38.4 % 40-54 [facility] Immature granulocytes/100 WB C Auto (Bld)Ordered By: Pamela Mackenzie on 06-24-2023 Immature granulocytes/100 WBC (Bld) 0.700 % 0.0-0.9 [facility] Comment on above: IG% - Immature Granu locytes (promyelocytes, myelocytes and metamyelocytes) > 1% indicates that a LEFT SHIFT is Present. Laboratory - Chemistry and C hemistry - challengeOrdered By: Pamela Mackenzie on 06-24-2023 Albumin/Globulin [Mass ratio] 1.1 {ratio} 0.9-2.4 [facility] ALP [Catalytic activity/Vol] 117 U/L 45-117 [facility] ALT [Catalytic activity/Vol] 10 U/L 16-61 [facility] CO2 [Moles/Vol] 27.0 mmol/L 21.0-32.0 [facility] Globulin (S) [Mass/Vol] 3.3 g/dL 2.2-4.2 [facility] Natriuretic peptide B (Bld) [Mass/Vol] 195.3 pg/mL 0-100 [facility] Urea nitrogen/Creatinine [Mass ratio] 18.0 mg/mg 10-20 [facility] Laboratory - Hematology and Cell countsOrdered By: Pamela Mackenzie on 06-24-2023 MCH (RBC) [Entitic mass] 32.0 pg 27.0-32.0 [facility] MCHC (RBC) [Mass/Vol] 32.6 g/dL 32-36 [facility] Nucleated RBC/100 WBC (Bld) [Ratio] 0 % 0-5 [facility] Platelet mean volume (Bld) [Entitic vol] 9.4 fL 6.2-12.0 [facility] Platelets (Bld) [#/Vol] 213 10*3/uL 150-450 [facility] No Panel InformationOrdered By: Pamela Mackenzie on 06-24-2023 Estimated GFR (MDRD) Amer 99 mL/min >60 [facility] Comment on above: GFR Calc Estimated GFR (MDRD) Non-Af Amer 82 mL/min >60 [facility] Comment on above: Non- GFR Calc RBC Auto (Bld) [#/Vol]Ordere d By: Pamela Mackenzie on 06-24-2023 RBC (Bld) [#/Vol] 3.91 10*6/uL 4.6-6.2 [facility] Serum or plasma calcium jennifer urement (mass/volume)Ordered By: Pamela Mackenzie on 06-24-2023 Calcium [Mass/Vol] 9.3 mg/dL 8.5-10.1 [facility] Serum or plasma creatinine m easurement (mass/volume)Ordered By: Pamela Mackenzie on 06-24-2023 Creatinine [Mass/Vol] 0.94 mg/dL 0.70-1.30 [facility] Comment on above: The validity of the calculated GFR & GFRAA in patients over 70 years has not been determined. Clinical correlation is essential. Serum or plasma urea nitroge n measurement (mass/volume)Ordered By: Pamela Mackenzie on 06-24-2023 Urea nitrogen [Mass/Vol] 17 mg/dL 7-18 [facility] Thin prep Papanicolaou smear with manual screeningOrdered By: Pamela Mackenzie on 06-24-2023 Thin prep Papanicolaou smear with manual screening 3.5 g/dL 3.2-5.0 [facility] Thin prep Papanicolaou smear with manual screening 18 U/L 15-37 [facility] Thin prep Papanicolaou smear with manual screening 2 5-15 [facility] Basophil percentageOrdered B y: Pamela Mackenzie on 06-11-2023 Bilirubin [Mass/Vol] 1.20 mg/dL 0.20-1.00 [facility] Comment on above: For patients on eltr ombopag therapy, use of Dimension [place] TBIL is not recommended. Cholesterol [Mass/Vol] 137 mg/dL <200 [facility] Comment on above: <200 mg/dL Desirable 200-240 mg/dL Borderline >240 mg/dL High Risk Protein [Mass/Vol] 7.4 g/dL 6.4-8.2 [facility] Triglyceride [Mass/Vol] 62 mg/dL <199 [facility] Comment on above: The drugs N-Acetylcy steine and Metamizole may falsely depress this assay.Serum Triglycerides Reference Interval Normal <150 mg/dL Borderline high 150 - 199 mg/dL High 200 - 499 mg/dL Very High > or = 500 mg/dL Direct bilirubinOrdered By: Pamela Mackenzie on 06-11-2023 Bilirubin.direct [Mass/Vol] 0.33 mg/dL 0.00-0.30 [facility] Laboratory - Chemistry and C hemistry - challengeOrdered By: Pamela Mackenzie on 06-11-2023 ALP [Catalytic activity/Vol] 129 U/L 45-117 [facility] ALT [Catalytic activity/Vol] 30 U/L 16-61 [facility] Cholesterol in HDL [Mass/Vol] 60 mg/dL >40 [facility] Comment on above: The drugs N-Acetylcy steine and Metamizole may falsely depress this assay. Reference Range HDL <40 mg/dL Low HDL Cholesterol HDL >or= 60 mg/dL High HDL Cholesterol Cholesterol in LDL [Mass/Vol] 65 mg/dL 0-130 [facility] Globulin (S) [Mass/Vol] 3.5 g/dL 2.2-4.2 [facility] No Panel InformationOrdered By: Pamela Mackenzie on 06-11-2023 VLDL Cholesterol 12 mg/dL 5-40 [facility] Thin prep Papanicolaou smear with manual screeningOrdered By: Pamela Mackenzie on 06-11-2023 Thin prep Papanicolaou smear with manual screening 3.9 g/dL 3.2-5.0 [facility] Thin prep Papanicolaou smear with manual screening 19 U/L 15-37 [facility] Basophil percentageOrdered B y: Aaron Perez on 12-19-2022 Bilirubin [Mass/Vol] 1.10 mg/dL 0.20-1.00 [facility] Comment on above: For patients on eltr ombopag therapy, use of Dimension [place] TBIL is not recommended. Cholesterol [Mass/Vol] 128 mg/dL <200 [facility] Comment on above: <200 mg/dL Desirable 200-240 mg/dL Borderline >240 mg/dL High Risk Protein [Mass/Vol] 7.1 g/dL 6.4-8.2 [facility] Triglyceride [Mass/Vol] 82 mg/dL <199 [facility] Comment on above: The drugs N-Acetylcy steine and Metamizole may falsely depress this assay.Serum Triglycerides Reference Interval Normal <150 mg/dL Borderline high 150 - 199 mg/dL High 200 - 499 mg/dL Very High > or = 500 mg/dL Direct bilirubinOrdered By: Aaron Perez on 12-19-2022 Bilirubin.direct [Mass/Vol] 0.28 mg/dL 0.00-0.30 [facility] Laboratory - Chemistry and C hemistry - challengeOrdered By: Aaron Perez on 12-19-2022 ALP [Catalytic activity/Vol] 123 U/L 45-117 [facility] ALT [Catalytic activity/Vol] 45 U/L 16-61 [facility] Globulin (S) [Mass/Vol] 3.4 g/dL 2.2-4.2 [facility] Serum or plasma albumin jennifer urement (mass/volume)Ordered By: Aaron Perez on 12-19-2022 Albumin [Mass/Vol] 3.7 g/dL 3.2-5.0 [facility] Serum or plasma cholesterol in HDL measurement (mass/volume)Ordered By: Aaron Perez on 12-19-2022 Cholesterol in HDL [Mass/Vol] 50 mg/dL >40 [facility] Comment on above: The drugs N-Acetylcy steine and Metamizole may falsely depress this assay. Reference Range HDL <40 mg/dL Low HDL Cholesterol HDL >or= 60 mg/dL High HDL Cholesterol Serum or plasma cholesterol in VLDL measurement (mass/volume)Ordered By: Aaron Perez on 12-19-2022 Cholesterol in VLDL [Mass/Vol] 16 mg/dL 5-40 [facility] Serum or plasma low density lipoprotein (LDL) cholesterol measurement (mass/volume)Ordered By: Aaron Perez on 12-19-2022 Cholesterol in LDL [Mass/Vol] 62 mg/dL 0-130 [facility] Thin prep Papanicolaou smear with manual screeningOrdered By: Aaron Perez on 12-19-2022 Thin prep Papanicolaou smear with manual screening 23 U/L 15-37 [facility] Basophil percentageOrdered B y: Dr. Perez on 06-25-2022 Bilirubin [Mass/Vol] 1.00 mg/dL 0.20-1.00 [facility] Comment on above: For patients on eltr ombopag therapy, use of [place] TBIL is not recommended. Cholesterol [Mass/Vol] 135 mg/dL <200 [facility] Comment on above: <200 mg/dL Desirable 200-240 mg/dL Borderline >240 mg/dL High Risk Protein [Mass/Vol] 7.5 g/dL 6.4-8.2 [facility] Triglyceride [Mass/Vol] 77 mg/dL <199 [facility] Comment on above: The drugs N-Acetylcy steine and Metamizole may falsely depress this assay.Serum Triglycerides Reference Interval Normal <150 mg/dL Borderline high 150 - 199 mg/dL High 200 - 499 mg/dL Very High > or = 500 mg/dL Direct bilirubinOrdered By: Dr. Perez on 06-25-2022 Bilirubin.direct [Mass/Vol] 0.23 mg/dL 0.00-0.30 [facility] Laboratory - Chemistry and C hemistry - challengeOrdered By: Dr. Perez on 06-25-2022 ALP [Catalytic activity/Vol] 117 U/L 45-117 [facility] ALT [Catalytic activity/Vol] 22 U/L 16-61 [facility] Globulin (S) [Mass/Vol] 3.5 g/dL 2.2-4.2 [facility] Serum or plasma albumin jennifer urement (mass/volume)Ordered By: Dr. Perez on 06-25-2022 Albumin [Mass/Vol] 4.0 g/dL 3.2-5.0 [facility] Serum or plasma cholesterol in HDL measurement (mass/volume)Ordered By: Dr. Perez on 06-25-2022 Cholesterol in HDL [Mass/Vol] 43 mg/dL >40 [facility] Comment on above: The drugs N-Acetylcy steine and Metamizole may falsely depress this assay. Reference Range HDL <40 mg/dL Low HDL Cholesterol HDL >or= 60 mg/dL High HDL Cholesterol Serum or plasma cholesterol in VLDL measurement (mass/volume)Ordered By: Dr. Perez on 06-25-2022 Cholesterol in VLDL [Mass/Vol] 15 mg/dL 5-40 [facility] Serum or plasma low density lipoprotein (LDL) cholesterol measurement (mass/volume)Ordered By: Dr. Perez on 06-25-2022 Cholesterol in LDL [Mass/Vol] 77 mg/dL 0-130 [facility] Thin prep Papanicolaou smear with manual screeningOrdered By: Dr. Perez on 06-25-2022 Thin prep Papanicolaou smear with manual screening 38 U/L 15-37 [facility] Basophil percentageon 2021 Bilirubin [Mass/Vol] 0.80 mg/dL 0.20-1.00 [facility] Work Phone: Comment on above: For patients on eltr ombopag therapy, use of Dimension [place] TBIL is not recommended. Cholesterol [Mass/Vol] 150 mg/dL <200 [facility] Work Phone: Comment on above: <200 mg/dL Desirable 200-240 mg/dL Borderline >240 mg/dL High Risk Protein [Mass/Vol] 7.8 g/dL 6.4-8.2 [facility] Work Phone: Triglyceride [Mass/Vol] 116 mg/dL <199 [facility] Work Phone: Comment on above: The drugs N-Acetylcy steine and Metamizole may falsely depress this assay.Serum Triglycerides Reference Interval Normal <150 mg/dL Borderline high 150 - 199 mg/dL High 200 - 499 mg/dL Very High > or = 500 mg/dL Direct bilirubinon Bilirubin.direct [Mass/Vol] 0.20 mg/dL 0.00-0.30 [facility] Work Phone: [phone] Laboratory - Chemistry and C hemistry - challengeon 12-25-2021 ALP [Catalytic activity/Vol] 142 U/L 45-117 [facility] Work Phone: [phone] ALT [Catalytic activity/Vol] 12 U/L 16-61 [facility] Work Phone: [phone] Globulin (S) [Mass/Vol] 4.1 g/dL 2.2-4.2 [facility] Work Phone: [phone] Serum or plasma albumin jennifer urement (mass/volume)on 12-25-2021 Albumin [Mass/Vol] 3.7 g/dL 3.2-5.0 [facility] Work Phone: [phone] Serum or plasma cholesterol in HDL measurement (mass/volume)on 12-25-2021 Cholesterol in HDL [Mass/Vol] 42 mg/dL >40 [facility] Work Phone: Comment on above: The drugs N-Acetylcy steine and Metamizole may falsely depress this assay. Reference Range HDL <40 mg/dL Low HDL Cholesterol HDL >or= 60 mg/dL High HDL Cholesterol Serum or plasma cholesterol in VLDL measurement (mass/volume)on 12-25-2021 Cholesterol in VLDL [Mass/Vol] 23 mg/dL 5-40 [facility] Work Phone: [phone] Serum or plasma low density lipoprotein (LDL) cholesterol measurement (mass/volume)on 12-25-2021 Cholesterol in LDL [Mass/Vol] 85 mg/dL 0-130 [facility] Work Phone: [phone] Thin prep Papanicolaou smear with manual screeningon 12-25-2021 Thin prep Papanicolaou smear with manual screening 19 U/L 15-37 [facility] Work Phone: Office Visit: [facility] 02-13-20 17 Documentation of current medications (procedure) Done Invalid Interpretation Code [facility] Work Phone: [phone] Protein mass conc Done Invalid Interpretation Code [facility] Work Phone: [phone] Lab Report: CBC W/Diff, Auto matedon 01-02-2017 RBC morphology finding Nom (Bld) NORM C+C Invalid Interpretation Code NORM C AND C [facility] Work Phone: [phone] Lab Report: T4 Total, Thyrox inon 01-02-2017 T4 mass conc 8.3 ug/dL Invalid Interpretation Code 4.5-12.1 [facility] Work Phone: [phone] Lab Report: Thyroid Stim Hor samara (TSH)on 01-02-2017 Thyrotropin Qn 1.18 u[iU]/mL Invalid Interpretation Code 0.358-3.74 [facility] Work Phone: [phone] Office Visit: [facility] 01-03-20 17 Documentation of current medications (procedure) Done Invalid Interpretation Code [facility] Work Phone: [phone] Fall risk assessment No Invalid Interpretation Code [facility] Work Phone: [phone] Protein mass conc Done Invalid Interpretation Code [employer] Phone: [phone] Replaced Document: (P) CBC W /Diff, Automatedon 01-02-2017 Absolute Neut 3.9 X10 3/UL Invalid Interpretation Code 2.0-7.7 [facility] Work Phone: [phone] Basophils/100 leukocytes 0.5 % Invalid Interpretation Code 0-1 [facility] Work Phone: [phone] Basophils/100 WBC (Bld) 0.5 % 0-1 [facility] Work Phone: [phone] Eosinophils/100 leukocytes 2.3 % Inval id Interpretation Code 0-5 [facility] Work Phone: [phone] Eosinophils/100 WBC (Bld) 2.3 % 0-5 [facility] Work Phone: [phone] Erythrocyte distribution width Auto Ratio (RBC) 46.3 fL High 35.1-43.9 [facility] Work Phone: [phone] Erythrocyte distribution width Ratio (RBC) 46.3 fL High 35.1-43.9 [facility] Work Phone: [phone] Erythrocyte distribution width Ratio (RBC) 13.2 % 11.6-14.6 [facility] Work Phone: [phone] Erythrocytes (RBC) 4.25 10*6/uL Low 4.6-6.[address] [facility] Work Phone: [phone] Hematocrit (HCT) 40.5 % Invalid Interpretation Code 40-54 [facility] Work Phone: [phone] Hematocrit Volume Fraction (Bld) 40.5 % 40-54 [facility] Work Phone: [phone] Hemoglobin (HGB) 13.6 g/dL Invalid Interpretation Code 13.0-16.5 [facility] Work Phone: [phone] Immature granulocytes #/vol (Bld) 0.200 % Invalid Interpretation Code 0.0-0.9 [facility] Work Phone: [phone] immature granulocytes, percentage of total cells, blood 0.200 % Invalid Interpretation Code 0.0-0.9 [facility] Work Phone: [phone] Immature granulocytes/100 WBC (Bld) 0.200 % Invalid Interpretation Code 0.0-0.9 [facility] Work Phone: [phone] Lymphocytes 1.40 X10 3/UL Invalid Interpretation Code 0.83-4.51 [facility] Work Phone: [phone] Lymphocytes #/vol (Bld) 1.40 X10 3/UL 0.83-4.51 [facility] Work Phone: [phone] Lymphocytes/100 leukocytes 21.9 % Inval id Interpretation Code 19- [facility] Work Phone: [phone] Lymphocytes/100 WBC (Bld) 21.9 % 19-41 [facility] Work Phone: [phone] MCH 32.0 pg Invalid Interpretation Code 27.0-32.0 [facility] Work Phone: [phone] MCH Entitic mass (RBC) 32.0 pg 27.0-32.0 [facility] Work Phone: [phone] MCHC 33.6 G/GL Invalid Interpretation Code 32-36 [facility] Work Phone: [phone] MCHC mass conc (RBC) 33.6 G/GL 32-[address] [facility] Work Phone: [phone] MCV 95.3 fL High 80-94 [facility] Work Phone: [phone] MCV Entitic volume (RBC) 95.3 fL High 80-94 [facility] Work Phone: [phone] Monocytes/100 leukocytes 14.1 % High 0-10 [facility] Work Phone: [phone] Monocytes/100 WBC (Bld) 14.1 % High 0-10 [facility] Work Phone: [phone] neutrophil count, blood 3.9 X10 3/UL Invalid Interpretation Code 2.0-7.7 [facility] Work Phone: [phone] Neutrophils #/vol (Bld) 3.9 X10 3/UL 2.0-7.7 [facility] Work Phone: [phone] Neutrophils Auto #/vol (Bld) 3.9 X10 3/UL Invalid Interpretation Code 2.0-7.7 [facility] Work Phone: [phone] Neutrophils/100 leukocytes 61.0 % Inval id Interpretation Code 47-70 [facility] Work Phone: [phone] Neutrophils/100 WBC (Bld) 61.0 % 47-70 [facility] Work Phone: [phone] Platelet mean volume Entitic volume (Bld) 9.3 fL 6.2-12.0 [facility] Work Phone: [phone] Platelets 226 10*3/mm3 Invalid Interpretation Code 150-450 [facility] Work Phone: [phone] Platelets #/vol (Bld) 226 10*3/mm3 150-450 [facility] Work Phone: [phone] PMV by Bowen 9.3 fL Invalid Interpretation Code 6.2-12.0 [facility] Work Phone: [phone] RBC #/vol (Bld) 4.25 10*6/uL Low 4.6-6.2 [facility] Work Phone: [phone] RDW SD 46.3 fL High 35.1-43.9 [facility] Work Phone: [phone] RDW-CA 13.2 % Invalid Interpretation Code 11.6-14.6 [facility] Work Phone: [phone] red blood cell distribution width, size density 46.3 fL High 35.1-43.9 [facility] Work Phone: [phone] WBC #/vol (Bld) 6.4 10*3/uL 4.4-11.0 [facility] Work Phone: [phone] WBC (Leukocytes) 6.4 10*3/uL Invalid Interpretation Code 4.4-11.0 [facility] Work Phone: [phone] Lab Report: Basic Metabolic Profile (BMP)on 11-15-2016 Anion gap 7 mmol/L Invalid Interpretation Code 5-15 [facility] Work Phone: [phone] Anion gap 4 molar conc 7 Invalid Interpretation Code 5-15 [facility] Work Phone: [phone] Anion gap molar conc 7 mmol/L 5-[address] [facility] Work Phone: [phone] Calcium mass conc 9.0 mg/dL Invalid Interpretation Code 8.5-10.1 [facility] Work Phone: [phone] Chloride molar conc 101 mmol/L Invalid Interpretation Code 98-107 [facility] Work Phone: [phone] CO2 29.0 mmol/L Invalid Interpretation Code 21.0-32.0 [facility] Work Phone: [phone] CO2 ppres (BldV) 29.0 mmol/L Invalid Interpretation Code 21.0-32.0 [facility] Work Phone: [phone] Creatinine mass conc 1.13 mg/dL Invalid Interpretation Code 0.70-1.30 [facility] Work Phone: [phone] eGFR (non-black) 82 mL/min/{1.73_m2} Invalid Interpretation Code >60 [employer] Work Phone: [phone] EST GFR - AA 82 mL/min Invalid Interpretation Code >60 [employer] Work Phone: [phone] GFR/1.73 sq M predicted among non-blacks MDRD vol rate/area (S/P/Bld) 68 mL/min/{1.73_m2} Invalid Interpretation Code >60 [employer] Work Phone: [phone] Glucose 106 mg/dL Invalid Interpretation Code 70-110 [employer] Work Phone: [phone] Glucose mass conc 106 mg/dL Invalid Interpretation Code 70-110 [employer] Work Phone: [phone] Potassium molar conc 4.1 mmol/L Invalid Interpretation Code 3.5-5.1 [employer] Phone: [phone] Sodium molar conc 137 mmol/L Invalid Interpretation Code 136-145 [employer] Work Phone: [phone] Urea nitrogen mass conc 31 mg/dL High 7-18 [facility] [employer] Work Phone: [phone] Urea nitrogen/Creatinine mass ratio 27.4 RATIO High 10-20 [employer] Phone: [phone] Office Visiton 07-04-2016 Documentation of current medications (procedure) Done Invalid Interpretation Code [employer] Phone: [phone] Protein mass conc Done [employer] Phone: [phone] Clinical Lists Update: Prelo lawyers 06-27-2016 Left ventricular Ejection fraction 50 % Invalid Interpretation Code [employer] Phone: [phone] Lab Report: CBC-Complete Blo od Cnt No Diffon 05-04-2016 Erythrocyte distribution width Ratio (RBC) 12.8 % 11.6-14.6 [employer] Phone: [phone] Erythrocyte distribution width Ratio (RBC) 42.1 fL 35.1-43.9 [employer] Phone: [phone] Erythrocytes (RBC) 4.62 10*6/uL Invalid Interpretation Code 4.6-6.2 [employer] Phone: [phone] Hematocrit (HCT) 42.7 % Invalid Interpretation Code 40-54 [facility] Work Phone: [phone] Hematocrit Volume Fraction (Bld) 42.7 % 40-54 [facility] Work Phone: [phone] Hemoglobin mass conc (Bld) 14.6 g/dL Inval id Interpretation Code 13.0-16.5 [facility] Work Phone: [phone]) MCH 31.6 pg Invalid Interpretation Code 27.0-32.0 [facility] Work Phone: [phone] MCH Entitic mass (RBC) 31.6 pg 27.0-32.0 [facility] Work Phone: [phone]) MCHC 34.2 G/GL Invalid Interpretation Code 32-36 [facility] Work Phone: [phone] MCHC mass conc (RBC) 34.2 G/GL 32-[address] [facility] Work Phone: [phone]) MCV 92.4 fL Invalid Interpretation Code 80-94 [facility] Work Phone: [phone] MCV Entitic volume (RBC) 92.4 fL 80-94 [facility] Work Phone: [phone] Platelet mean volume Entitic volume (Bld) 9.5 fL 6.2-12.0 [facility] Work Phone: [phone] Platelets 226 10*3/mm3 Invalid Interpretation Code 150-450 [facility] Work Phone: [phone]) Platelets #/vol (Bld) 226 10*3/mm3 150-450 [facility] Work Phone: [phone] PMV by Bowen 9.5 fL Invalid Interpretation Code 6.2-12.0 [facility] Work Phone: [phone] RBC #/vol (Bld) 4.62 10*6/uL 4.6-6.2 [facility] Work Phone: [phone] RDW-CA 12.8 % Invalid Interpretation Code 11.6-14.6 [facility] Work Phone: red blood cell distribution width, size density 42.1 fL Invalid Interpretation Code 35.1-43.9 [facility] Work Phone: [phone] WBC #/vol (Bld) 5.8 10*3/uL 4.4-11.0 [facility] Work Phone: [phone] WBC (Leukocytes) 5.8 10*3/uL Invalid Interpretation Code 4.4-11.0 [facility] Work Phone: [phone] Lab Report: Comprehensive [facility] Profilon 05-04-2016 Albumin mass conc 3.8 g/dL Invalid Interpretation Code 3.4-5.0 [facility] Work Phone: [phone] Albumin/Globulin mass ratio 1.1 {ratio} Invalid Interpretation Code 0.9-2.4 [facility] Work Phone: [phone] Alkaline phosphatase (ALP) 128 U/L High 45-117 [facility] Work Phone: [phone] ALP enzyme act/vol (Bld) 128 U/L High 45-117 [facility] Work Phone: [phone] ALT enzyme act/vol 20 U/L Invalid Interpretation Code 12-78 [facility] Work Phone: [phone] Anion gap molar conc 7 mmol/L 5-[address] [facility] Work Phone: [phone] AST enzyme act/vol 23 U/L Invalid Interpretation Code 15-37 [facility] Work Phone: [phone] Bilirubin mass conc 1.10 mg/dL High 0.20-1.00 [facility] Work Phone: [phone] Calcium mass conc 8.6 mg/dL 8.5-10.1 [facility] Work Phone: [phone] Chloride molar conc 106 mmol/L 98-107 [facility] Work Phone: [phone] CO2 ppres (BldV) 27.0 mmol/L 21.0-32.0 [facility] Work Phone: [phone] Creatinine mass conc 0.89 mg/dL 0.70-1.[address] [facility] Work Phone: EST GFR - AA 108 mL/min >60 [facility] Work Phone: [phone] GFR/1.73 sq M predicted among non-blacks MDRD vol rate/area (S/P/Bld) 89 mL/min/{1.73_m2} >60 [facility] Work Phone: [phone] Globulin 3.5 g/dL Invalid Interpretation Code 2.3-3.5 [facility] Work Phone: [phone] Globulin mass conc (S) 3.5 g/dL 2.3-3.5 [facility] Work Phone: [phone] Glucose mass conc 96 mg/dL 70-110 [facility] Work Phone: [phone] Potassium molar conc 3.8 mmol/L 3.5-5.[address] [facility] Work Phone: [phone] Protein mass conc 7.3 g/dL Invalid Interpretation Code 6.4-8.2 [facility] [employer] Work Phone: [phone] Sodium molar conc 140 mmol/L 136-145 [facility] Work Phone: [phone] Urea nitrogen mass conc 13 mg/dL 7-18 [facility] Work Phone: [phone] Urea nitrogen/Creatinine mass ratio 14.6 RATIO 10-20 [facility] Work Phone: [phone] Lab Report: Lipid Profileon 05-04-2016 Cholesterol in HDL mass conc 36 mg/dL Low [facility] Work Phone: [phone] Cholesterol in LDL mass conc 57 mg/dL Invalid Interpretation Code 0-130 [facility] Work Phone: [phone] Cholesterol mass conc 114 mg/dL Invalid Interpretation Code 200 [facility] Work Phone: [phone] Lipoprotein.pre-beta mass conc 21 mg/dL Invalid Interpretation Code 5-40 [facility] Work Phone: [phone] Triglyceride mass conc 107 mg/dL Invalid Interpretation Code [facility] Work Phone: [phone] Lab Report: T4 Free Directon 05-04-2016 T4 free mass conc 1.19 ng/dL Invalid Interpretation Code 0.76-1.46 [facility] Work Phone: [phone] Lab Report: Thyroid Stim Jh pascual (TSH)on 05-04-2016 Thyrotropin Qn 0.97 u[iU]/mL 0.358-3.74 [facility] Phone: [phone] Replaced Document: Kendrick VENCES Observationson 11-30-2015 EKG QRS axis -113 deg Invalid Interpretation Code [facility] Phone: [phone] electrocardiogram interpretation Sinus Bradycardia -WPW pattern. ABNORMAL Invalid Interpretation Code [facility] Phone: [phone] GE use only - for [employer] import when terms are not otherwise specified 464 ms Invalid Interpretation Code [facility] Phone: [phone] Interpretation Sinus Bradycardia -WPW pattern. ABNORMAL Invalid Interpretation Code [facility] Phone: [phone] P [place] 107 deg Invalid Interpretation Code [facility] Phone: [phone] P wave axis, electrocardiogram 107 deg Invalid Interpretation Code [facility] Phone: [phone] CA Interval 184 ms Invalid Interpretation Code [facility] Phone: [phone] CA interval, electrocardiogram 184 ms Invalid Interpretation Code [facility] Phone: [phone] Pulse (Heart Rate) 55 /min Invalid Interpretation Code [facility] Phone: [phone] QRS axis, electrocardiogram -113 deg Invalid Interpretation Code [facility] Phone: [phone] QRS Duration 186 ms Invalid Interpretation Code [facility] Phone: [phone] QRS duration, electrocardiogram 186 ms Invalid Interpretation Code [facility] Phone: [phone] QT Interval new path ms Invalid Interpretation Code [facility] Phone: [phone] QT interval, electrocardiogram new path ms Invalid Interpretation Code [facility] Phone: [phone] QTc Aldana 464 ms Invalid Interpretation Code [facility] Phone: [phone] T [place] 90 deg Invalid Interpretation Code [facility] Phone: [phone] T wave axis, electrocardiogram 90 deg Invalid Interpretation Code [facility] Phone: Office Visiton 05-19-2015 Tobacco smoking status NHIS Never smoker Invalid Interpretation Code [facility] Work Phone: [phone] Tobacco use CP Never smoker Invalid Interpretation Code [facility] Work Phone: [phone] Lab Report: Liver Profileon 04-21-2015 Bilirubin.direct mass conc 0.19 mg/dL Inval id Interpretation Code 0.00-0.30 [facility] Work Phone: [phone] Lab Report: PSA,Total - Emma al Screenon 04-21-2015 prostate specific antigen (PSA) screening 0.86 ng/mL Invalid Interpretation Code 0.00-4.00 [facility] Work Phone: [phone] Protein mass conc 0.86 ng/mL 0.00-4.00 [facility] Work Phone: [phone] PSA,TOT SCREEN 0.86 ng/mL Invalid Interpretation Code 0.00-4.00 [facility] Work Phone: [phone] Lab Report: T4 Total, Thyrox inon 10-23-2014 T4 mass conc 10.2 ug/dL 4.5-12.1 [facility] Work Phone: [phone] Office Visiton 04-19-2014 cardiac risk group C Invalid Interpretation Code [facility] Work Phone: [phone] General cardiovascular disease 10Y risk [#] [place].Christiano'Keny N/A Invalid Interpretation Code [facility] Work Phone: [phone] Clinical Lists Update: Prelo lawyers 04-14-2014 Digoxin 1.00 ng/mL Invalid Interpretation Code [facility] Work Phone: [phone] Digoxin>12 hours p dose mass conc 1.00 ng/mL Invalid Interpretation Code [facility] Work Phone: [phone]) Clinical Lists Update: Prelo lawyers 04-13-2014 Globulin 3.1 g/dL Invalid Interpretation Code [facility] Work Phone: [phone] Globulin mass conc (S) 3.1 g/dL [facility] Work Phone: [phone]) Clinical Lists Update: Pacer Preloadon 04-30-2013 Left ventricular Ejection fraction 50 % Invalid Interpretation Code [facility] Work Phone: [phone] Lab Report: UAon 04-21-2013 Specific gravity Refractometry Relative Density (U) 1.015 Normal 1.002-1.030 [facility] Work Phone: [phone] Lab Report: PTon 04-16-2013 INR Coag RelTime (PPP) 1.1 {INR} Normal [facility] Work Phone: [phone] INR in blood by coagulation 1.1 {INR} Normal [facility] Work Phone: [phone] prothrombin time, actual/normal, ratio 13.3 SECONDS Normal 11.9-14.4 [facility] Work Phone: [phone] PTP 13.3 SECONDS Normal 11.9-14.4 [facility] Work Phone: [phone] Replaced Document: Kendrick E CG Observationson 04-10-2013 Pulse (Heart Rate) 453 ms Invalid Interpretation Code [facility] Work Phone: [phone] Clinical Lists Update: Prelo lawyers 04-08-2012 Glucose 90 mg/dL Invalid Interpretation Code [facility] Work Phone: [phone] Glucose fasting mass conc 90 mg/dL [facility] Work Phone: [phone] Glucose fasting mass conc (BldV) 90 mg/dL Invalid Interpretation Code [facility] Work Phone: [phone] Glucose mass conc 90 mg/dL Invalid Interpretation Code [facility] Work Phone: [phone] Vital Signs Date Time Vital Sign Value Performing Clinician Zainab loza 12-17-2024 15:56-0400 Body height [address] Juan Carlos Joel MD Work Phone: [facility] 08-15-2023 13:040 Body height 177.[address] Juan Carlos Joel Work Phone: [facility] 08-15-2023 13:26-0400 Body mass index (BMI) [Ratio] 20.6 kg/m2 Dr. Juan Carlos Joel Work Phone: [facility] 08-15-2023 13:26-040 Body weight 65.[address] Juan Carlos Joel Work Phone: [facility] 08-15-2023 13:26-0400 Diastolic blood pressure 68 mm[Hg] Dr. Juan Carlos Joel Work Phone: [facility] 08-15-2023 13:26-0400 Heart rate 63 /min Dr. Juan Carlos Joel Work Phone: [facility] 08-15-2023 13:26-0400 Respiratory rate 18 /min Dr. Juan Carlos Joel Work Phone: [facility] 08-15-2023 13:26-0400 Systolic blood pressure 126 mm[Hg] Dr. Juan Carlos Joel Work Phone: [facility] 06-25-2023 09:56-0500 Body height 177.[address] Juan Carlos Joel Work Phone: [facility] 06-25-2023 09:56-0500 Body mass index (BMI) [Ratio] 21.7 kg/m2 Dr. Juan Carlos Joel Work Phone: [facility] 06-25-2023 09:56-0500 Body weight 68.[address] Juan Carlos Joel Work Phone: [facility] 06-25-2023 09:56-0500 Diastolic blood pressure 60 mm[Hg] Dr. Juan Carlos Joel Work Phone: [facility] 06-25-2023 09:56-0500 Heart rate 60 /min Dr. Juan Carlos Joel Work Phone: [facility] 06-25-2023 09:56-0500 Respiratory rate 18 /min Dr. Juan Carlos Joel Work Phone: [facility] 06-25-2023 09:56-0500 SaO2% (BldA) [Mass fraction] 94 % Dr. Juan Carlos Joel Work Phone: [facility] 06-25-2023 09:56-0500 Systolic blood pressure 102 mm[Hg] Dr. Juan Carlos Joel Work Phone: [facility] 05-20-2023 13:19-0500 Body mass index (BMI) [Ratio] 19.6 kg/m2 Dr. Juan Carlos Joel Work Phone: [facility] 05-20-2023 13:19-0500 Body weight 62.[address] Juan Carlos Joel Work Phone: [facility] 05-20-2023 13:19-0500 Diastolic blood pressure 68 mm[Hg] Dr. Juan Carlos Joel Work Phone: [facility] 05-20-2023 13:19-0500 Heart rate 52 /min Dr. Juan Carlos Joel Work Phone: [facility] 05-20-2023 13:19-0500 Respiratory rate 16 /min Dr. Juan Carlos Joel Work Phone: [facility] 05-20-2023 13:19-0500 Systolic blood pressure 123 mm[Hg] Dr. Juan Carlos Joel Work Phone: [facility] 11-20-2022 13:57-0400 Body height 177.[address] Juan Carlos Joel Work Phone: [facility] 11-20-2022 13:57-0400 Body mass index (BMI) [Ratio] 19.6 kg/m2 Dr. Juan Carlos Joel Work Phone: [facility] 11-20-2022 13:57-0400 Body weight 62.[address] Juan Carlos Joel Work Phone: [facility] 11-20-2022 13:57-0400 Diastolic blood pressure 63 mm[Hg] Dr. Juan Carlos Joel Work Phone: [facility] 11-20-2022 13:57-0400 Heart rate 55 /min Dr. Juan Carlos Joel Work Phone: [facility] 11-20-2022 13:57-0400 Respiratory rate 18 /min Dr. Juan Carlos Joel Work Phone: [facility] 11-20-2022 13:57-0400 SaO2% (BldA) [Mass fraction] 93 % Dr. Juan Carlos Joel Work Phone: [facility] 11-20-2022 13:57-0400 Systolic blood pressure 119 mm[Hg] Dr. Juan Carlos Joel Work Phone: [facility] 05-28-2022 13:25-0500 Body height 177.[address] Juan Carlos Joel Work Phone: [facility] 05-28-2022 13:25-0500 Body mass index (BMI) [Ratio] 19.9 kg/m2 Dr. Juan Carlos Joel Work Phone: [facility] 05-28-2022 13:25-0500 Body weight 63.[address] Juan Carlos Joel Work Phone: [facility] 05-28-2022 13:25-0500 Diastolic blood pressure 68 mm[Hg] Dr. Juan Carlos Joel Work Phone: [facility] 05-28-2022 13:25-0500 Heart rate 55 /min Dr. Juan Carlos Joel Work Phone: [facility] 05-28-2022 13:25-0500 Respiratory rate 18 /min Dr. Juan Carlos Joel Work Phone: [facility] 05-28-2022 13:25-0500 SaO2% (BldA) [Mass fraction] 93 % Dr. Juan Carlos Joel Work Phone: [facility] 05-28-2022 13:25-0500 Systolic blood pressure 117 mm[Hg] Dr. Juan Carlos Joel Work Phone: [facility] 01-16-2022 14:52-0400 Body height 175.3 cm Cherry Billingsley APRN.SPANISH INTERPRETER/TRANSLATOR Work Phone: [facility] 01-16-2022 14:52-0400 Body weight 67.41 kg Cherry Billingsley APRN.SPANISH INTERPRETER/TRANSLATOR Work Phone: [facility] 01-16-2022 14:52-0400 SaO2% (BldA) [Mass fraction] 97 % Cherry Billingsley APRN.SPANISH INTERPRETER/TRANSLATOR Work Phone: [facility] 11-24-2021 15:58-0400 Body height 177.[address] Juan Carlos Joel Work Phone: [facility] Work Phone: 10-23-2021 15:24-0400 Body mass index (BMI) [Ratio] 21.4 kg/m2 Dr. Juan Carlos Joel Work Phone: [facility] Work Phone: 10-23-2021 15:24-0400 Body weight 67.[address] Juan Carlos Joel Work Phone: [facility] Work Phone: 10-23-2021 15:24-0400 Diastolic blood pressure 48 mm[Hg] Dr. Juan Carlos Joel Work Phone: [facility] Work Phone: 10-23-2021 15:24-0400 Heart rate 56 /min Dr. Juan Carlos Joel Work Phone: [facility] Work Phone: 10-23-2021 15:24-0400 Respiratory rate 16 /min Dr. Juan Carlos Joel Work Phone: [facility] Work Phone: 10-23-2021 15:24-0400 Systolic blood pressure 96 mm[Hg] Dr. Juan Carlos Joel Work Phone: [facility] Work Phone: 09-20-2021 10:03-0400 Body height 175.3 cm Willie Haywood MD Work Phone: [facility] 09-20-2021 10:03-0400 Body weight 71.22 kg Willie Haywood MD Work Phone: [facility] 09-20-2021 10:03-0400 Diastolic blood pressure 70 mm[Hg] Willie Haywood MD Work Phone: [facility] 09-20-2021 10:03-0400 Heart rate 55 /min Willie Haywood MD Work Phone: [facility] 09-20-2021 10:03-0400 SaO2% (BldA) [Mass fraction] 98 % Willie Haywood MD Work Phone: [facility] 09-20-2021 10:03-0400 Systolic blood pressure 141 mm[Hg] Willie Haywood MD Work Phone: [facility] 02-12-2017 11:51-0400 BMI (Body Mass Index) 22.89 kg/m2 Valarie Swenson [employer] [facility] [employer] Work Phone: 02-12-2017 11:51-0400 BP Diastolic 60 mm[Hg] Valarie Duffy [facility] Work Phone: 02-12-2017 11:51-0400 BP Systolic 98 mm[Hg] Valarie Duffy [facility] Work Phone: 02-12-2017 11:51-0400 Weight 70.31 kg Valarie Duffy [facility] Work Phone: 01-02-2017 13:22-0400 BMI (Body Mass Index) 22.93 kg/m2 [facility] Work Phone: 01-02-2017 13:22-0400 BP Diastolic 58 mm[Hg] [facility] Work Phone: 01-02-2017 13:22-0400 BP Systolic 98 mm[Hg] [facility] Work Phone: 01-02-2017 13:22-0400 Height 175.26 cm [facility] Work Phone: 01-02-2017 13:22-0400 Pulse (Heart Rate) 56 /min [facility] Work Phone: 01-02-2017 13:22-0400 Respiratory Rate 20 /min [facility] Work Phone: 01-02-2017 13:22-0400 Weight 70.45 kg [facility] Work Phone: 07-04-2016 14:17-0500 BMI (Body Mass Index) 23.92 kg/m2 [facility] Work Phone: 07-04-2016 14:17-0500 BP Diastolic 60 mm[Hg] [facility] Work Phone: 07-04-2016 14:17-0500 BP Systolic 118 mm[Hg] [facility] Work Phone: 07-04-2016 14:17-0500 Pulse (Heart Rate) 60 /min [facility] Work Phone: 07-04-2016 14:17-0500 Respiratory Rate 16 /min [facility] Work Phone: 07-04-2016 14:17-0500 Weight 73.48 kg Jena Santiago RN [facility] Work Phone: 11-30-2015 09:39-0400 Heart rate 55 /min Jena Santiago RN [facility] Work Phone: 11-30-2015 09:29-0400 BSA (Body Surface Area) 1.9 m2 Jena Santiago RN [facility] Work Phone: 04-10-2013 14:36-0500 Heart rate 453 ms Jena Santiago RN [facility] Work Phone: 08-23-2011 10:46-0400 Height 175.26 cm Jena Santiago RN [facility] Work Phone: Encounters Encounter Date Encounter Type Care Provider Facility Start: 11-26-2024 End: 11-26-[address] Juan Carlos Joel MD Work Phone: -[facility] Start: 11-26-2024 End: 11-26-2024 Patient encounter procedure Hallie DESAIC -[facility] Work Phone: Start: 10-13-2024 End: 10-13-[address] Juan Carlos Joel MD Work Phone: -[facility] Start: 10-13-2024 End: 10-13-[address] Adams Ivy MD -[facility] Work Phone: Start: 09-22-2024 End: 09-22-[address] Juan Carlos Joel MD Work Phone: [facility] Start: 09-22-2024 End: 09-22-2024 Patient encounter procedure Hallie Campos NP-[facility] Work Phone: Start: 09-12-2024 End: 09-12-[address] Juan Carlos Joel MD Work Phone: [facility] Work Phone: Start: 09-12-2024 End: 09-12-[address] Daniel Kaplan MD -[facility] Work Phone: Start: 09-10-2024 End: 09-10-[address] Juan Carlos Joel MD Work Phone: [facility] Start: 09-10-2024 End: 09-10-2024 Patient encounter procedure Hallie Campos NP-[facility] Work Phone: Start: 05-15-2024 End: 05-15-2024 ambulatory Juan Carlos Joel Facility:[facility] Start: 05-15-2024 ambulatory Juan Carlos Joel Facility:[facility] Start: 05-05-2024 End: 05-05-2024 ambulatory Juan Carlos Joel Facility:[facility] Start: 05-04-2024 ambulatory Juan Carlos Joel Facility:[facility] Start: 05-01-2024 End: 05-01-2024 ambulatory Juan Carlos Joel Facility:[facility] Start: 04-26-2024 ambulatory Juan Carlos Joel Facility:[facility] Start: 04-26-2024 End: 04-30-2024 Evaluation and management of inpatient Juan Carlos Joel Facility:[facility] Start: 02-06-2024 End: 02-06-2024 ambulatory Juan Carlos Joel Facility:[facility] Start: 02-03-2024 End: 02-03-2024 ambulatory Daniel Kaplan Facility:[facility] Start: 01-22-2024 End: 01-22-2024 Telephone encounter Marisela Albaro TRUJILLO Work Phone: [facility] Comment on above: Home Care (Confirmat ion call) Start: 01-21-2024 End: 01-21-2024 Telephone encounter Marisela Albaro TRUJILLO Work Phone: [facility] Comment on above: Home Care (MD janak ibanez) Start: 01-19-2024 ambulatory Noman Panchito Pearcekandis Fac ility:[facility] Start: 01-19-2024 End: 01-21-2024 Evaluation and management of inpatient Noman Panchito Jovan Facility:[facility] Start: 01-18-2024 ambulatory Noman Flanagan Jovan Fac ility:[facility] Start: 01-16-2024 End: 01-16-2024 ambulatory Juan Carlos Joel Facility:[facility] Start: 12-31-2023 ambulatory [facility] Facility:[facility] Start: 12-31-2023 End: 12-31-2023 ambulatory [facility] Facility:[facility] Start: 12-19-2023 End: 12-19-2023 ambulatory Kyara Santiago Facility:[facility] Start: 11-15-2023 Refill Willie kaplan MD Work Phone: Neurology Comment on above: Refill Request Start: 09-06-2023 Non-patient / Non-visit Dr. Emilio Joel Work Phone: [facility] Work Phone: Start: 09-05-2023 Non-patient / Non-visit Dr. Emilio Joel Work Phone: [facility] Start: 09-05-2023 End: 09-05-[address] Juan Carlos Joel Work Phone: [facility] Work Phone: Start: 09-05-2023 End: 09-05-[address] Juan Carlos Joel Work Phone: [facility] Work Phone: Start: 09-02-2023 Refill Willie kaplan MD Work Phone: Neurology Comment on above: Refill Request Start: 08-22-2023 Non-patient / Non-visit Dr. Emilio Joel Work Phone: [facility] Work Phone: Start: 08-22-2023 Non-patient / Non-visit Dr. Emilio Joel Work Phone: [facility] Start: 08-22-2023 End: 08-22-[address] Juan Carlos Joel Work Phone: [facility] Work Phone: Start: 08-22-2023 End: 08-22-[address] [facility] Start: 08-15-2023 End: 08-15-[address] Juan Carlos Joel Work Phone: [facility] Work Phone: Start: 08-08-2023 End: 08-08-[address] Juan Carlos Joel Work Phone: [facility] Work Phone: Start: 08-08-2023 End: 08-08-[address] Juan Carlos Joel Work Phone: [facility] Start: 07-15-2023 End: 07-15-[address] Juan Carlos Joel Work Phone: [facility] Work Phone: Start: 07-15-2023 End: 07-15-[address] [facility] Start: 06-25-2023 End: 06-25-[address] Juan Carlos Joel Work Phone: [facility] Work Phone: Start: 06-24-2023 End: 06-24-[address] Juan Carlos Joel Work Phone: [facility] Work Phone: Start: 06-24-2023 End: 06-24-[address] [facility] Start: 06-11-2023 End: 06-11-[address] [facility] Start: 05-20-2023 End: 05-20-[address] Juan Carlos Joel Work Phone: [facility] Work Phone: Start: 12-19-2022 End: 12-19-[address] Juan Carlos Joel Work Phone: [facility] Work Phone: Start: 12-19-2022 End: 12-19-[address] [facility] Start: 11-20-2022 End: 11-20-[address] Juan Carlos Joel Work Phone: [facility] Work Phone: Start: 08-27-2022 Telephone encounter Willie sagastume MD Work Phone: [facility] Comment on above: Symptom Management Start: 06-25-2022 End: 06-25-[address] Juan Carlos Joel Work Phone: [facility] Work Phone: Start: 06-25-2022 End: 06-25-[address] Juan Carlos Joel Work Phone: [facility] Start: 05-28-2022 End: 05-28-[address] Juan Carlos Joel Work Phone: [facility] Start: 01-22-2022 Refill Cherry zavala RAIL DOWELING MACHINE OPERATOR.SPANISH INTERPRETER/TRANSLATOR Work Phone: [facility] Comment on above: Refill Request Start: 01-16-2022 End: 01-16-2022 Patient encounter procedure Cherry Billingsley RAIL DOWELING MACHINE OPERATOR.SPANISH INTERPRETER/TRANSLATOR Work Phone: Neurology Comment on above: Parkinson disease (H [facility]) (Primary Dx) Start: 12-25-2021 End: 12-25-[address] Juan Carlos Joel Work Phone: [facility] Work Phone: Start: 12-25-2021 End: 12-25-[address] Juan Carlos Joel Work Phone: [facility] Start: 11-24-2021 End: 11-24-[address] Juan Carlos Joel Work Phone: [facility] Start: 10-23-2021 End: 10-23-[address] Juan Carlos Joel Work Phone: [facility] Start: 09-20-2021 End: 09-20-2021 Patient encounter procedure Willie Haywood MD Work Phone: Neurology Comment on above: Parkinson disease (H CC) (Primary Dx); RBD (REM behavioral disorder); Gait instability Procedures Date Procedure Procedure Detail Performing Clinician Start: 09-05-2023 Cardiovascular stres s test using pharmacologic stress agent Dr. Juan Carlos Joel Work Phone: Start: 06-24-2023 Plain chest X-ray Dr. Leann Joel Work Phone: Start: 02-12-2017 End: 02-12-2017 Follow Up Appt Other Karen Jorgensen PA-C Work Phone: Start: 01-23-2017 End: 02-01-2017 Follow Up Appt 3 months Aaron Perez MD Start: 01-23-2017 End: 02-01-2017 Pacer Clinic Aaron Perez MD Start: 01-23-2017 End: 01-23-2017 Prgrmg eval implantable in person multi lead dfb Aaron Perez MD Start: 01-23-2017 End: 01-23-2017 Icd device progr eval, mult Aaron Perez MD Start: 01-02-2017 End: 01-02-2017 *CBC with Differential Karen Jorgensen PA-C Work Phone: Start: 01-02-2017 End: 01-02-2017 Follow Up Appt 6 weeks Karen Jorgensen PA-C Work Phone: Start: 01-02-2017 End: 01-02-2017 MMM Karen Jorgensen PA-C Work Phone: Start: 01-02-2017 End: 01-09-2017 [facility] Work Phone: Start: 01-02-2017 [...] 10-17-2016 Icd device progr eval, mult Aaron Perez MD Start: 10-17-2016 End: 12-25-2016 Pacer Clinic Aaron Perez MD Start: 07-04-2016 End: 07-04-2016 Device Interrogation Aaron Perez MD Start: 07-04-2016 End: 12-25-2016 Follow Up Appt 3 months Aaron Perez MD Start: 07-04-2016 End: 07-04-2016 Follow Up Appt 6 months Aaron Perez MD Start: 07-04-2016 End: 07-04-2016 CLARISSA Perez MD Start: 07-04-2016 End: 12-25-2016 Pacer [...] 07-04-2016 Icd device progr eval, mult Aaron Perez MD Start: 07-04-2016 End: 07-04-2016 RUDIM Aaron Perez MD Start: 07-04-2016 End: 12-25-2016 [...] 03-19-2016 End: 03-19-2016 Icd device progr eval, carleyt Aaron Perez MD Start: 03-19-2016 End: 07-04-2016 Pacer Clinic Aaron Perez MD Start: 12-12-2015 End: 12-25-2016 Follow Up Appt 3 months Aaron Perez MD Start: 12-12-2015 End: 12-25-2016 Pacer Clinic Aaron Perez MD Start: 12-12-2015 End: 12-13-2015 Prgrmg eval implantable in person multi lead dfb Aaron Perze MD Start: 12-12-2015 End: 12-25-2016 Follow Up Appt 3 months Aaron Perez MD Start: 12-12-2015 End: 12-13-2015 Icd device progr eval, carleyt Aaron Perez MD Start: 12-12-2015 End: 12-25-2016 [...] 09-12-2015 Icd device progr eval, mult Aaron Perez MD Start: 09-12-2015 End: 11-23-2015 [...] 06-13-2015 Icd device progr eval, mult Aaron Perez MD Start: 06-13-2015 End: 11-23-2015 [...] 03-07-2015 End: 03-08-2015 Icd device progr eval, carleyt Aaron Perez MD Start: 03-07-2015 End: 11-23-2015 [...] 11-19-2014 Icd device progr eval, carleyt Aaron Perez MD Start: 11-19-2014 End: 11-23-2015 [...] Start: 10-19-2014 End: 10-27-2014 Nuclear stress test -Onieljúnior Jorgensen PA-C Work Phone: Start: 10-19-2014 End: [...] Start: 10-19-2014 End: 10-27-2014 Nuclear stress test -Onieljúnior Jorgensen PA-C Work Phone: Start: 10-19-2014 End: [...] 08-16-2014 End: 08-16-2014 Icd device progr eval, carleyt Ravi Conteh MD Work Phone: Start: 08-16-2014 [...] 05-17-2014 Icd device progr eval, carleyt Aaron Perez MD Start: 05-17-2014 End: 10-05-2014 [...] 02-11-2014 End: 02-11-2014 Icd device progr eval, carleyt Aaron Perez MD Start: 02-11-2014 End: 10-05-2014 [...] 08-05-2013 Icd device progr eval, mult Aaron Perez MD Start: 08-05-2013 End: 10-01-2013 [...] Start: 04-10-2013 End: 04-20-2013 Electrocardiogram, complete Aaron Perez MD Start: 04-10-2013 End: 10-01-2013 Follow Up Appt 3 months Aaron Perez MD Start: 04-10-2013 End: 04-10-2013 Follow Up Appt 6 months Aaron Perez MD Start: 04-10-2013 End: 04-10-2013 Icd device progr eval, dual Aaron Perez MD Start: 04-10-2013 End: 10-05-2014 Lipid panel [...] 12-31-2012 Icd device progr eval, mult Aaron Perez MD Start: 12-31-2012 End: 01-01-2013 Icm device [...] 09-26-2012 Icd device progr eval, mult Aaron Perez MD Start: 09-26-2012 End: 09-26-2012 [...] Aaron Perez MD Start: 11-02-2010 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 Juan Carlos Joel Work Phone: Comment on above: CABG x5- MA to LAD , SVG to Diagonal, SVG to marginal branch of the CX, SVG to marginal branch of the distal CX, and SVG to PDA 01/23/95 Plan of Treatment Date Care Activity Detail Author Start: 01-05-2024 Covid-19 Vaccine ( season) Covid-19 Vaccine () [facility] Start: 01-05-2024 Influenza vaccination [facility] Start: 05-06-2023 Advance Directive Discussion Advance Directive Discussion [facility] Start: 05-06-2023 Behavioral Health Screening Behavioral Health Screening [facility] Start: 01-04-2023 Covid-19 Vaccine () Covid-19 Vaccine () [facility] Start: 01-04-2023 Influenza vaccination INFLUENZA (Season Ended) [facility] Start: 05-06-2022 ADVANCE DIRECTIVE DISCUSSION ADVANCE DIRECTIVE DISCUSSION [facility] Start: 05-06-2022 DEPRESSION ASSESSMENT DEPRESSION ASSESSMENT [facility] Start: 01-04-2022 Influenza vaccination [facility] Start: 07-07-2021 COVID-19 VACCINE (4 - Booster for Pfizer series) COVID-19 VACCINE (4 - Booster for Pfizer series) [facility] Start: 05-06-2021 ADVANCE DIRECTIVE DISCUSSION ADVANCE DIRECTIVE DISCUSSION [facility] Start: 05-04-2021 COVID-19 VACCINE (4 - Booster for Pfizer series) COVID-19 VACCINE (4 - Booster for Pfizer series) [facility] Start: 07-10-2017 End: 07-10-2017 Appointment Appointment [facility] Work Phone: Start: 07-03-2017 End: 07-03-2017 Appointment Appointment [facility] Work Phone: Start: 05-08-2017 End: 05-08-2017 Appointment Appointment [facility] Work Phone: Start: 02-12-2017 End: 02-12-2017 Appointment Appointment [facility] Work Phone: Start: 02-12-2017 End: 02-12-2017 Follow Up Appt Other Follow Up Appt Other [facility] Work Phone: Start: 01-23-2017 End: 01-23-2017 Appointment [facility] Work Phone: Start: 01-23-2017 End: 02-01-2017 Follow Up Appt 3 months Follow Up Appt 3 months [facility] Work Phone: Start: 01-23-2017 End: 02-01-2017 Pacer Clinic Pacer Clinic [facility] Work Phone: Start: 01-23-2017 End: 01-23-2017 Follow Up Appt 3 months Follow Up Appt 3 months [facility] Work Phone: Start: 01-23-2017 End: 01-23-2017 Pacer Clinic Pacer Clinic [facility] Work Phone: Start: 01-02-2017 End: 01-02-2017 *CBC with Differential *CBC with Differential [facility] Work Phone: Start: 01-02-2017 End: 01-02-2017 Follow Up Appt 6 weeks Follow Up Appt 6 weeks [facility] Work Phone: Start: 01-02-2017 End: 01-02-2017 MMM MMM [facility] Work Phone: Start: 01-02-2017 End: 01-02-2017 Nuclear stress test -[facility] Nuclear stress test -[facility] Work Phone: Start: 01-02-2017 End: 01-02-2017 Thyroid stimulating hormone (TSH) *TSH [facility] Work Phone: Start: 01-02-2017 End: 01-02-2017 Thyroxine (T4) *T4 (Total) [facility] Work Phone: Start: 01-02-2017 End: 01-02-2017 Appointment Appointment [facility] Work Phone: Start: 01-02-2017 End: 01-02-2017 *CBC with Differential *CBC with Differential [facility] Work Phone: Start: 01-02-2017 End: 01-02-2017 Follow Up Appt 6 weeks Follow Up Appt 6 weeks [facility] Work Phone: Start: 01-02-2017 End: 01-02-2017 MMM MMM [facility] Work Phone: Start: 01-02-2017 End: 01-02-2017 Nuclear stress test -Lexiscan Nuclear stress test -[facility] Work Phone: Start: 01-02-2017 End: 01-02-2017 Thyroid stimulating hormone (TSH) *TSH [facility] Work Phone: Start: 01-02-2017 End: 01-02-2017 Thyroxine (T4) *T4 (Total) [facility] Work Phone: Start: 11-15-2016 End: 11-16-2016 *BMP *BMP [facility] Work Phone: Start: 11-15-2016 End: 11-16-2016 *BMP *BMP [facility] Work Phone: Start: 10-17-2016 End: 10-17-2016 Appointment [...] 10-17-2016 End: 12-25-2016 Pacer Clinic Pacer Clinic [facility] Work Phone: Start: 07-04-2016 End: 07-04-2016 Device Interrogation Device Interrogation [facility] Work Phone: Start: 07-04-2016 End: 12-25-2016 Follow Up Appt 3 months Follow Up Appt 3 months [facility] Work Phone: Start: 07-04-2016 End: 07-04-2016 Follow Up Appt 6 months Follow Up Appt 6 months [facility] Work Phone: Start: 07-04-2016 End: 07-04-2016 MMM MMM [facility] Work Phone: Start: 07-04-2016 End: 12-25-2016 Pacer Clinic Pacer Clinic [facility] Work Phone: Start: 07-04-2016 End: [...] 07-04-2016 End: 12-25-2016 Pacer Clinic Pacer Clinic [facility] Work Phone: Start: 03-19-2016 End: 07-04-2016 Follow Up Appt 3 months Follow Up Appt 3 months [facility] Work Phone: Start: 03-19-2016 [...] 3 months Follow Up Appt 3 months [facility] Work Phone: Start: 12-12-2015 End: 12-25-2016 Pacer Clinic Pacer Clinic [facility] Work Phone: Start: 11-30-2015 End: 11-30-2015 Ecg routine ecg w/least 12 lds w/i&r EKG (In office) [facility] Work Phone: Start: 11-30-2015 End: 11-30-2015 Follow Up Appt 6 months Follow Up Appt 6 months [facility] Work Phone: Start: 11-30-2015 End: 11-30-2015 PFM PF [facility] Work Phone: Start: 11-30-2015 End: 11-30-2015 Electrocardiogram, complete EKG (In office) [facility] Work Phone: Start: 11-30-2015 End: 11-30-2015 Follow Up Appt 6 months Follow Up Appt 6 months [facility] Work Phone: Start: 11-30-2015 End: 11-30-2015 PFM PFM [facility] Work Phone: Start: 10-21-2015 End: 12-25-2016 *Hepatic Function Panel *Hepatic Function Panel [facility] Work Phone: Start: 10-21-2015 End: 12-25-2016 Lipid panel [AGGREGATE] *Lipid Profile CC PCP [facility] Work Phone: Start: 10-21-2015 End: 12-25-2016 *Hepatic Function Panel *Hepatic Function Panel [facility] Work Phone: Start: 10-21-2015 End: 12-25-2016 Lipid panel [AGGREGATE] *Lipid Profile CC PCP [facility] Work Phone: Start: 09-12-2015 End: 11-23-2015 Follow Up Appt 3 months Follow Up Appt 3 months [facility] Work Phone: Start: 09-12-2015 End: 11-23-2015 Pacer Clinic Pacer Clinic [facility] Work Phone: Start: 09-12-2015 End: [...] 06-13-2015 End: 11-23-2015 Pacer Clinic Pacer Clinic [facility] Work Phone: Start: 06-13-2015 End: 11-23-2015 Follow Up Appt 3 months Follow Up Appt 3 months [facility] Work Phone: Start: 06-13-2015 End: 11-23-2015 Pacer Clinic Pacer Clinic [facility] Work Phone: Start: 05-19-2015 End: 05-19-2015 Follow Up Appt 6 months Follow Up Appt 6 months [facility] Work Phone: Start: 05-19-2015 End: 05-19-2015 MMM MMM [facility] Work Phone: Start: 05-19-2015 End: 05-19-2015 Follow Up Appt 6 months Follow Up Appt 6 months [facility] Work Phone: Start: 05-19-2015 End: 05-19-2015 MMM MMM [facility] Work Phone: Start: 04-18-2015 End: 04-21-2015 *Hepatic Function Panel *Hepatic Function Panel [facility] Work Phone: Start: 04-18-2015 End: 04-21-2015 Lipid panel [AGGREGATE] *Lipid Profile CC PCP [facility] Work Phone: Start: 04-18-2015 End: 04-21-2015 *Hepatic Function Panel *Hepatic Function Panel [facility] Work Phone: Start: 04-18-2015 End: 04-21-2015 Lipid panel [AGGREGATE] *Lipid Profile CC PCP [facility] Work Phone: Start: 03-07-2015 End: 11-23-2015 Follow Up Appt 3 months Follow Up Appt 3 months [facility] Work Phone: Start: 03-07-2015 End: 11-23-2015 Pacer Clinic Pacer Clinic [facility] Work Phone: Start: 03-07-2015 End: 11-23-2015 Follow Up Appt 3 months Follow Up Appt 3 months [facility] Work Phone: Start: 03-07-2015 End: 11-23-2015 Pacer Clinic Pacer [facility] Work Phone: Start: 11-19-2014 End: [...] 6 months Follow Up Appt 6 months [facility] Work Phone: Start: 10-19-2014 End: 10-19-2014 Nuclear stress test -Lexiscan Nuclear stress test -Lexisc[facility] Work Phone: Start: 10-19-2014 End: 10-19-2014 PFM PFM [facility] Work Phone: Start: 10-19-2014 End: 10-25-2014 Thyroid stimulating hormone (TSH) *TSH [facility] Work Phone: Start: 10-19-2014 End: 10-25-2014 Thyroxine (T4) *T4 (Total) [facility] Work Phone: Start: 10-19-2014 End: 10-25-2014 CBC W Auto Differential panel - Blood *CBC without Diff [facility] Work Phone: Start: 10-19-2014 End: 10-19-2014 Electrocardiogram, complete EKG (In office) [facility] Work Phone: Start: 10-19-2014 End: 10-19-2014 Follow Up Appt 6 months Follow Up Appt 6 months [facility] Work Phone: Start: 10-19-2014 End: 10-19-2014 Nuclear stress test -Lexiscan Nuclear stress test -[facility] Work Phone: Start: 10-19-2014 End: 10-19-2014 PFM PFM [facility] Work Phone: Start: 10-19-2014 End: 10-25-2014 Thyroid stimulating hormone (TSH) *TSH [facility] Work Phone: Start: 10-19-2014 End: 10-25-2014 Thyroxine (T4) *T4 (Total) [facility] Work Phone: Start: 08-16-2014 End: 10-05-2014 Follow Up Appt 3 months Follow Up Appt 3 months [facility] Work Phone: Start: 08-16-2014 End: 10-05-2014 Pacer Clinic Pacer Clinic [facility] Work Phone: Start: 08-16-2014 End: 10-05-2014 Follow Up Appt 3 months Follow Up Appt 3 months [facility] Work Phone: Start: 08-16-2014 [...] Lipid panel [AGGREGATE] *Lipid Profile CC PCP [facility] Work Phone: Start: 04-19-2014 End: 04-19-2014 MMM MMM [facility] Work Phone: Start: 04-19-2014 End: 10-15-2014 *Hepatic Function Panel *Hepatic Function Panel [facility] Work Phone: Start: 04-19-2014 End: 04-19-2014 Follow Up Appt 6 months Follow Up Appt 6 months [facility] Work Phone: Start: 04-19-2014 End: 10-15-2014 Lipid panel [AGGREGATE] *Lipid Profile CC PCP [facility] Work Phone: Start: 04-19-2014 End: 04-19-2014 MMM MMM [facility] Work Phone: Start: 04-05-2014 End: 10-05-2014 *Hepatic Function Panel *Hepatic Function Panel [facility] Work Phone: Start: 04-05-2014 End: 10-05-2014 Lipid panel [AGGREGATE] *Lipid Profile CC PCP [facility] Work Phone: Start: 04-05-2014 End: 10-05-2014 *Hepatic Function Panel *Hepatic Function Panel [facility] Work Phone: Start: 04-05-2014 End: 10-05-2014 Lipid panel [AGGREGATE] *Lipid Profile CC PCP [facility] Work Phone: Start: 02-11-2014 End: 10-05-2014 Follow Up Appt 3 months Follow Up Appt 3 months [facility] Work Phone: Start: 02-11-2014 End: 10-05-2014 Pacer Clinic Pacer Clinic [facility] Work Phone: Start: 02-11-2014 End: 10-05-2014 Follow Up Appt 3 months Follow Up Appt 3 months [facility] Work Phone: Start: 02-11-2014 End: 10-05-2014 Pacer Clinic Pacer Clinic [facility] Work Phone: Start: 11-11-2013 End: 10-05-2014 Follow Up Appt 3 months Follow Up Appt 3 months [facility] Work Phone: Start: 11-11-2013 [...] 6 months Follow Up Appt 6 months [facility] Work Phone: Start: 10-12-2013 End: 10-12-2013 Lipid panel [AGGREGATE] *Lipid Profile CC PCP [facility] Work Phone: Start: 10-12-2013 End: 10-12-2013 PFM PFM [facility] Work Phone: Start: 10-12-2013 End: 10-12-2013 *Hepatic Function Panel *Hepatic Function Panel [facility] Work Phone: Start: 10-12-2013 End: 10-12-2013 Follow Up Appt 6 months Follow Up Appt 6 months [facility] Work Phone: Start: 10-12-2013 End: 10-12-2013 Lipid panel [AGGREGATE] *Lipid Profile CC PCP [facility] Work Phone: Start: 10-12-2013 End: 10-12-2013 PFM PFM [facility] Work Phone: Start: 10-04-2013 End: 10-13-2013 *Hepatic Function Panel *Hepatic Function Panel [facility] Work Phone: Start: 10-04-2013 End: 10-13-2013 Lipid panel [AGGREGATE] *Lipid Profile CC PCP [facility] Work Phone: Start: 10-04-2013 End: 10-13-2013 *Hepatic Function Panel *Hepatic Function Panel [facility] Work Phone: Start: 10-04-2013 End: 10-13-2013 Lipid panel [AGGREGATE] *Lipid Profile CC PCP [facility] Work Phone: Start: 08-05-2013 End: 10-01-2013 Follow Up Appt 2 months Follow Up Appt 2 months [facility] Work Phone: Start: 08-05-2013 End: 10-01-2013 Pacer Clinic Pacer Clinic [facility] Work Phone: Start: 08-05-2013 End: [...] 05-04-2013 End: 10-01-2013 Pacer Clinic Pacer Clinic [facility] Work Phone: Start: 05-04-2013 End: 10-01-2013 Follow Up Appt 3 months Follow Up Appt 3 months [facility] Work Phone: Start: 05-04-2013 End: 10-01-2013 Pacer Clinic Pacer Clinic [facility] Work Phone: Start: 04-21-2013 End: 10-05-2014 *UA - Urinalysis w/o Micro *UA - Urinalysis w/o Micro [facility] Work Phone: Start: 04-21-2013 End: 10-05-2014 *UA - Urinalysis w/o Micro *UA - Urinalysis w/o Micro [facility] Work Phone: Start: 04-10-2013 End: [...] Differential panel - Blood *CBC without Diff [facility] Work Phone: Start: 04-10-2013 End: 10-05-2014 Chest x-ray X-Ray, Chest, PA & Lateral [facility] Work Phone: Start: 04-10-2013 End: 04-20-2013 Ecg routine ecg w/least 12 lds w/i&r EKG (In office) [facility] Work Phone: Start: 04-10-2013 End: 10-01-2013 Follow Up Appt 3 months Follow Up Appt 3 months [facility] Work Phone: Start: 04-10-2013 End: 04-10-2013 Follow Up Appt 6 months Follow Up Appt 6 months [facility] Work Phone: Start: 04-10-2013 End: 10-05-2014 INR Coag RelTime (PPP) *PT/INR [facility] Work Phone: Start: 04-10-2013 End: 10-05-2014 Lipid panel [AGGREGATE] *Lipid Profile CC PCP [facility] Work Phone: Start: 04-10-2013 End: 04-10-2013 MMM MMM [facility] Work Phone: Start: 04-10-2013 End: 04-10-2013 Pacemaker Generator Change Pacemaker Generator Change [facility] Work Phone: Start: 04-10-2013 End: 10-01-2013 Pacer Clinic Pacer Clinic [facility] Work Phone: Start: 04-10-2013 End: 10-05-2014 *BMP *BMP [facility] Work Phone: Start: 04-10-2013 End: 10-05-2014 *Hepatic Function Panel *Hepatic Function Panel [facility] Work Phone: Start: 04-10-2013 End: 10-05-2014 *UA - Urinalysis w/o Micro *UA - Urinalysis w/o Micro [facility] Work Phone: Start: 04-10-2013 End: 10-05-2014 CBC W Auto Differential panel - Blood *CBC without Diff [facility] Work Phone: Start: 04-10-2013 End: 10-05-2014 Chest x-ray X-Ray, Chest, PA & Lateral [facility] Work Phone: Start: 04-10-2013 End: 10-05-2014 Coagulation factor induced.INR assay in platelet poor plasma *PT/INR [facility] Work Phone: Start: 04-10-2013 End: 04-20-2013 Electrocardiogram, complete EKG (In office) [facility] Work Phone: Start: 04-10-2013 End: 10-01-2013 Follow Up Appt 3 months Follow Up Appt 3 months [facility] Work Phone: Start: 04-10-2013 End: 04-10-2013 Follow Up Appt 6 months Follow Up Appt 6 months [facility] Work Phone: Start: 04-10-2013 End: 10-05-2014 Lipid panel [AGGREGATE] *Lipid Profile CC PCP [facility] Work Phone: Start: 04-10-2013 End: 04-10-2013 MMM MMM [facility] Work Phone: Start: 04-10-2013 End: 04-10-2013 Pacemaker Generator Change Pacemaker Generator Change [facility] Work Phone: Start: 04-10-2013 End: 10-01-2013 Pacer Clinic Pacer Clinic [facility] Work Phone: Start: 12-31-2012 End: 10-01-2013 Follow Up Appt 3 months Follow Up Appt 3 months [facility] Work Phone: Start: 12-31-2012 End: 10-01-2013 Pacer Clinic Pacer Clinic [facility] Work Phone: Start: 12-31-2012 End: 10-01-2013 Follow Up Appt 3 months Follow Up Appt 3 months [facility] Work Phone: Start: 12-31-2012 End: 10-01-2013 Pacer Clinic Pacer Clinic [facility] Work Phone: Start: 10-04-2012 End: 10-05-2014 *Hepatic Function Panel *Hepatic Function Panel [facility] Work Phone: Start: 10-04-2012 End: 10-05-2014 Lipid panel [AGGREGATE] *Lipid Profile [facility] Work Phone: Start: 10-04-2012 End: 10-05-2014 *Hepatic Function Panel *Hepatic Function Panel [facility] Work Phone: Start: 10-04-2012 End: 10-05-2014 Lipid panel [AGGREGATE] *Lipid Profile [facility] Work Phone: Start: 09-26-2012 End: 09-26-2012 Echocardiography Echocardiogram (limited) [facility] Work Phone: Start: 09-26-2012 End: 09-26-2012 Follow Up Appt 3 months Follow Up Appt 3 months [facility] Work Phone: Start: 09-26-2012 End: 09-26-2012 Follow Up Appt 6 months Follow Up Appt 6 months [facility] Work Phone: Start: 09-26-2012 End: 09-26-2012 Pacer Clinic Pacer Clinic [facility] Work Phone: Start: 09-26-2012 End: 09-26-2012 PFM PFM [facility] Work Phone: Start: 09-26-2012 End: 09-26-2012 Echocardiography Echocardiogram (limited) [facility] Work Phone: Start: 09-26-2012 End: 09-26-2012 Follow Up Appt 3 months Follow Up Appt 3 months [facility] Work Phone: Start: 09-26-2012 End: 09-26-2012 Follow Up Appt 6 months Follow Up Appt 6 months [facility] Work Phone: Start: 09-26-2012 End: 09-26-2012 Pacer Clinic Pacer Clinic [facility] Work Phone: Start: 09-26-2012 End: 09-26-2012 PFM PFM [facility] Work Phone: Start: 04-05-2012 End: 11-08-2011 *Hepatic Function Panel *Hepatic Function Panel [facility] Work Phone: Start: 04-05-2012 End: 11-08-2011 Lipid panel [AGGREGATE] *Lipid Profile [facility] Work Phone: Start: 04-05-2012 End: 11-08-2011 *Hepatic Function Panel *Hepatic Function Panel [facility] Work Phone: Start: 04-05-2012 End: 11-08-2011 Lipid panel [AGGREGATE] *Lipid Profile [facility] Work Phone: Start: 02-25-2012 End: 10-01-2013 Follow Up Appt 6 months Follow Up Appt 6 months [facility] Work Phone: Start: 02-25-2012 End: 02-25-2012 Nuclear stress test -adenosine Nuclear stress test -adenosine [facility] Work Phone: Start: 02-25-2012 End: 10-01-2013 Follow Up Appt 6 months Follow Up Appt 6 months [facility] Work Phone: Start: 02-25-2012 End: 02-25-2012 Nuclear stress test -adenosine Nuclear stress test -adenosine [facility] Work Phone: Start: 10-05-2011 End: 11-08-2011 *Hepatic Function Panel *Hepatic Function Panel [facility] Work Phone: Start: 10-05-2011 End: 11-08-2011 Lipid panel [AGGREGATE] *Lipid Profile [facility] Work Phone: Start: 10-05-2011 End: 11-08-2011 *Hepatic Function Panel *Hepatic Function Panel [facility] Work Phone: Start: 10-05-2011 End: 11-08-2011 Lipid panel [AGGREGATE] *Lipid Profile [facility] Work Phone: Start: 08-23-2011 End: 08-23-2011 Echocardiography Echocardiogram (complete) [facility] Work Phone: Start: 08-23-2011 End: 10-01-2013 Follow Up Appt 6 months Follow Up Appt 6 months [facility] Work Phone: Start: 08-23-2011 End: 08-23-2011 Echocardiography Echocardiogram (complete) [facility] Work Phone: Start: 08-23-2011 End: 10-01-2013 Follow Up Appt 6 months Follow Up Appt 6 months [facility] Work Phone: Start: 09-24-2008 PNEUMOCOCCAL: 65+ (1 - PCV) PNEUMOCOCCAL: 65+ (1 - PCV) [facility] Start: 09-24-2008 PNEUMOVAX AGE 65 AND OVER WITH 5YR LOOKBACK (#1) PNEUMOVAX AGE 65 AND OVER WITH 5YR LOOKBACK (#1) [facility] Start: 2003 [facility] Vaccine (1 - 1-dose 60+ series) RSV Vaccine (1 - 1-dose 60+ series) [facility] Start: 09-24-1993 SHINGRIX VACCINE (1 of 2) SHINGRIX VACCINE (1 of 2) [facility] Start: 09-24-1988 DIABETES SCREEN DIABETES SCREEN [facility] Start: 09-24-1988 Diabetes Screening Diabetes Screening [facility] Start: 09-24-1962 Urine microalbumin profile [facility] Start: 09-24-1961 Anxiety Screening Anxiety Screening [facility] Start: 09-24-1961 Depression Screening Depression Screening [facility] Start: 09-24-1961 HEPATITIS C SCREENING HEPATITIS C SCREENING [facility] Start: 1955 Adult depression screening assessment DEPRESSION SCREENING [facility] Blood chemistry [facility] NM Heart Views W str ess and W radionuclide IV [facility] Patient Education HYPERLIPIDEMIA , HYPERTENSION [facility] Work Phone: [facility] Immunizations Immunization Date Immunization Notes Care Provider [facility] 05-11-2022 influenza, injectabl e, quadrivalent, preservative free Dr. Juan Carlos Joel MD Work Phone: [facility] 05-11-2022 influenza virus vaccine, unspecified formulation Willie Haywood MD Work Phone: [facility] 03-13-2022 Covid Pfizer Bivalen t Booster Dr. Juan Carlos Joel MD Work Phone: [facility] Payers Date Payer Category Payer Medicare [id number] 2023 Medicare [id number] 2023 Self-pay [id number] 2019 Medicare HUMANA MEDICARE HUMANA MEDICARE PPO [id number] 2019-Present [phone] [place] [address] PPO [id number] 2019 Medicare HUMANA MEDICARE HUMANA MEDICARE PPO [id number] 2019-Present [phone] [place] [address] PPO [id number] 2015 Medicare [id number] Unknown [id number] 2.16840.1.743234.3.579.2.462 Unknown [id number] 2.840.1.188460.3.579.2.462 Unknown [id number] 2.16.840.1.066275.3.579.2.462 Unknown [id number] 2.16.840.1.124984.3.579.2.462 Unknown [id number] 2.16.840.1.912047.3.579.2.462 Unknown [id number] 2.16840.1.197418.3.579.2.462 Unknown [id number] 2.16.840.1.009314.3.579.2.462 Unknown [id number] 2.16840.1.593284.3.579.2.462 Unknown [id number] 2.840.1.380574.3.579.2.462 Unknown [id number] 2.840.1.930892.3.579.2.462 Unknown [id number] 2.840.1.883664.3.579.2.462 Unknown [id number] 2.840.1.870693.3.579.2.462 Unknown [id number] 2.840.1.649697.3.579.2.462 Unknown [id number] 2.840.1.523553.3.579.2.462 Unknown [id number] 2.840.1.387017.3.579.2.462 Unknown [id number] 2.840.1.183931.3.579.2.462 Unknown [id number] 2.840.1.481692.3.579.2.462 Unknown [id number] 2.840.1.335665.3.579.2.462 Unknown [id number] 2.840.1.052152.3.579.2.462 Unknown [id number] 2.840.1.487393.3.579.2.462 Unknown [id number] 2.840.1.069831.3.579.2.462 Unknown [id number] 2.16840.1.053343.3.579.2.462 Unknown [id number] 2.840.1.371922.3.579.2.462 Unknown [id number] 2.16.840.1.645413.3.579.2.462 Unknown [id number] 2.16.840.1.082983.3.579.2.462 Unknown [id number] 2.16.840.1.128587.3.579.2.462 Unknown [id number] 2.16.840.1.662357.3.579.2.462 Unknown [id number] 2.16.840.1.086676.3.579.2.462 Unknown [id number] 2.16.840.1.007314.3.579.2.462 Unknown [id number] 2.16.840.1.815004.3.579.2.462 Social History Date Type Detail Facility Start: 01-16-2022 End: 12-17-2024 Tobacco smoking status NHIS Never smoked tobacco [facility] Start: 09-20-2021 End: 09-19-2022 Alcohol intake Current non-drinker of alcohol (finding) [facility] Start: 1945 Sex Assigned At Not on file [facility] Start: 09-10-2021 End: 01-16-2022 Exposure to SARS-CoV-2 (event) Not sure [facility] Start: 11-24-2021 End: 08-15-2023 Tobacco smoking status GAIS Unknown if ever smoked [facility] Start: 1945 Sex Assigned At Male [facility] Start: 01-16-2022 Tobacco use and exposure Smokeless tobacco non-user [facility] Start: 09-19-2022 History of Social function [facility] Start: 09-19-2022 Tobacco use panel [facility] National Score (1-100), lower number is lower risk 54 [facility] Medical Equipment Procedure Code Equipment Code Equipment Original Text Equipment Identifier Dates Cardiac resynchr onization therapy implantable pacemaker [id number] [facility] Start: 12-31-2023 Clinical Notes 01-04-1995 to 04-30-2024 Telephone Encounter - Marisela Irvin LPN - 01/22/2024 9:31 AM EDTTelephone Encounter - Marisela Irvin LPN - 01/22/2024 9:31 AM EDTTelephone Encounter - Rosetta Valiente MA - 11/15/2023 10:10 AM EDT Note Date & Type Note Facility 04-30-2024 Note [facility] 01-22-2024 Telephone encounter Note [phone] full unable to leave message. [phone] wrong number (Rosalba stated that this was the [facility]) Marisela Irvin LPN Central Admissions Intake Nurse [facility] Work Phone: 01-22-2024 Miscellaneous Notes [phone] full unable to leave message. [phone] wrong number (Rosalba stated that this was the [facility]) Marisela Irvin LPN Central Admissions Intake Nurse documented in this encounter [facility] 01-21-2024 Note [facility] 01-21-2024 Telephone encounter Note Spoke to Val at Dr. Joel's office, she will confirm if the Doctor will follow and call back. Marisela Irvin LPN Central Admissions Intake Nurse [facility] Work Phone: 01-21-2024 Miscellaneous Notes Spoke to Val at Dr. Joel's office, she will confirm if the Doctor will follow and call back. Marisela Irvin LPN Central Admissions Intake Nurse documented in this encounter [facility] 11-18-2023 Telephone encounter Note Please advise patient he is overdue for follow-up and please facilitate scheduling appointment with me or OLE. The following approved medication requests have been transmitted electronically. Requested Prescriptions Signed Prescriptions Disp Refills carbidopa-levodopa (SINEMET 25-100) 25-100 mg per tablet 540 tablet 0 Sig: Take 1.5 tablets by mouth four times daily. Authorizing Provider: WILLIE HAYWOOD MD [facility] 11-18-2023 Miscellaneous Notes Please advise patient he is overdue for follow-up and please facilitate scheduling appointment with me or OLE. The following approved medication requests have been transmitted electronically. Requested Prescriptions Signed Prescriptions Disp Refills carbidopa-levodopa (SINEMET 25-100) 25-100 mg per tablet 540 tablet 0 Sig: Take 1.5 tablets by mouth four times daily. Authorizing Provider: WILLIE HAYWOOD MD Patient has been identified by name [...] Rosetta Valiente MA documented in this encounter [facility] 11-15-2023 Telephone encounter Note Patient has been [...] Please review and advise. Rosetta Valiente MA [facility] 09-16-2023 Telephone encounter Note Called and spoke with Patient's spouse. Relayed message below. An appointment was not scheduled at this time. Spouse states they will call back to schedule at another time. Edelmira Farr [facility] 09-16-2023 Miscellaneous Notes Called and spoke with Patient's spouse. Relayed message below. An appointment was not scheduled at this time. Spouse states they will call back to schedule at another time. Edelmira Farr Please advise patient he is overdue for follow-up and please facilitate scheduling appointment with me or OLE (has seen Cherry). The following approved medication requests have been transmitted electronically. Requested Prescriptions Signed Prescriptions Disp Refills carbidopa-levodopa (SINEMET 25-100) 25-100 mg per tablet 540 tablet 0 Sig: Take 1.5 tablets by mouth four times daily. Authorizing Provider: WILLIE HAYWOOD MD Patient has been identified by name [...] Rosetta Valiente MA documented in this encounter [facility] 09-02-2023 Telephone encounter Note Please advise patient he is overdue for follow-up and please facilitate scheduling appointment with me or OLE (has seen Cherry). The following approved medication requests have been transmitted electronically. Requested Prescriptions Signed Prescriptions Disp Refills carbidopa-levodopa (SINEMET 25-100) 25-100 mg per tablet 540 tablet 0 Sig: Take 1.5 tablets by mouth four times daily. Authorizing Provider: WILLIE HAYWOOD MD [facility] 09-02-2023 Telephone encounter Note Patient has been [...] Please review and advise. Rosetta Valiente MA [facility] 08-28-2022 Miscellaneous Notes Attempted to return call [...] Call : calls stating patient is sleeping "all the time". His energy is low and "can hardly walk". There has not been any recent illness or changes. Attempted to make appointment in tomorrow morning slot with MD but patient had a conflict and she asked if there might be anything to do for him now. Number to return call [phone] Okay to leave a message ? Last office visit 01/16/22 with Cherry No visit scheduled. Thank you calling [facility]. You will receive a return call within 48 hours ( or 2 business days if close to the weekend). If you feel that this is an urgent issue and needs immediate attention, it is recommended that you contact your primary care provider office or proceed to your nearest Urgent Care Center of Emergency Room ED for evaluation/treatment. documented in this encounter [facility] 01-22-2022 Miscellaneous Notes Request from patient requesting refill. RX prescribed by previous neurologist. Please E-Scribe to Kanchan Suarez). Last OV: 01/16/22 with SS Future OV: 07/16/22 with KA Requested Prescriptions Pending Prescriptions Disp Refills sertraline (ZOLOFT) 100 mg tablet 90 tablet 3 Sig: Take 1 tablet by mouth once daily. Jerica Mclaughlin documented in this encounter [facility] 01-16-2022 Instructions Cherry Billingsley APRN.SPANISH INTERPRETER/TRANSLATOR - 01/16/2022 4:03 PM EDT For your [...] potential for hallucinations. documented in this encounter [facility] 01-16-2022 History of Present illness Narrative [facility] - FOLLOW UP EVALUATION Ted Hays MD No address on file I [...] to him later. Loses train of thought. [place] Cognitive Assessment (MoCA): 15 (01/16/2022 3:30 [...] Objective Vital Signs: Ht 175.3 cm (5' 9") Wt 67.4 kg (148 lb 9.6 oz) SpO2 97% BMI 21.94 kg/m Orthostatic Vitals: Sitting: BP 161/77 Pulse 55 Standing: BP 165/80 Pulse 55 Weight: 67.4 kg (148 lb 9.6 oz) Height: 175.3 cm (5' 9") No LMP for male patient. Body mass [...] not have Parkinson's disease. I did a [place] today, and he scored a 15. Due [...] potential for hallucinations. Level of service : 88585 (40-54 min). Time spent 45 min on the day of service, which included preparing to see the patient, vvoi-gs-vkaq patient care, completing clinical documentation, obtaining and/or [...] to call with any questions. Sincerely, Cherry Billingsley APRN.SPANISH INTERPRETER/TRANSLATOR documented in this encounter [facility] 09-20-2021 Instructions Willie Haywood MD - 09/20/2021 10:20 AM EDT Images [...] or you can send a message through [employer]. You can also now schedule and select appointments through [employer]. Willie Haywood MD Constipation and Other Gastrointestinal Problems in [...] future constipation. Treatments fall into two categories: njbl-thp-znnnprt and prescription therapies. Remember: consult with your [...] day and your own convenience and preference. Umko-bab-Lqdpxbu Products Brjk-utm-ahgtdpq treatments for constipation can be purchased at [...] It also comes as a capsule (Senna [place] Smooth Move ). ving with PD Constipation [...] easier to pass. These can be used mcfp but should not be used in combination [...] after other remedies have failed. Among the dsxs-enk-rmqaame laxatives, they are most likely to cause [...] psyllium (Perdiem ). Common Side Effects of Npwx-aac-Tpwswlm Products for Constipation Emollient (Stool Softeners) Skin [...] any side effects listed. Prescription Products When vphv-xml-atdeaoc remedies fail, your healthcare provider may recommend [...] Stimulant X Bisacodyl (Dulcolax ) Stimulant X Arnett Oil Stimulant X Cellulose (Unifiber ) Bulk [...] Docusate (Senokot ) Stimulant X Adapted from: [facility] Website, accessed August 30, 2015, www.[facility]/health/druginfo rmation/ [id number] Special Precautions For your safety, consult your [...] Contributing authors: Percy Gonzalez, Ph.D., R.N., and Jordan aKtz., C.R.NNeetuP. Constipation Tracker Day/Date Time Food(s) Eaten Activities Emotional Status Stool Description Feel free to photocopy this page and use it throughout the year to track your symptoms and share with your doctor. This is a patient education material provided by the Parkinson s [employer]. For more information and resources see [email or web address].parkinson.org/. [facility] is a Center of Excellence for the Parkinson s [employer]. documented in this encounter [facility] 09-20-2021 History of Present illness Narrative [facility] - NEW PATIENT EVALUATION Ted Hays MD No address on file I [...] now. Diagnosed around that time. Neurologist left [place]. Would like walking to be better. Doesn't [...] Coronary atherosclerosis of unspecified type of vessel, rincon or graft, Essential hypertension, benign, Other and [...] Pulse (!) 55 Ht 175.3 cm (5' 9") Wt 71.2 kg (157 lb) SpO2 98% [...] 2+ 2+ Achilles 1+ 1+ Coordination Right: Thmsvr-wm-bqzl normal. Rapid alternating movement normal. Left: Bgdfvq-lq-zvzi normal. Rapid alternating movement normal. Movement Disorders [...] to call with any questions. 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 Essential hypertension chron ic 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 Mixed hyperlipidemia chronic Paroxysmal supraventricular tachycardia chronic S/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) [facility] Work Phone: 1(240) 996-248509-01-1995 Evaluation note* Diagnosis Onset Date Resolution Status 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, chronic Essential hypertension chron ic 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 Mixed hyperlipidemia chronic Paroxysmal supraventricular tachycardia chronic Presence of stent in coronary artery March, chronic S/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) chroni c 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 Paroxysmal supraventricular tachycardia chronic S/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) chroni c 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 Essential hypertension chron ic 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 Mixed hyperlipidemia chronic Paroxysmal supraventricular tachycardia chronic S/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) chroni c 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 Left bundle branch block chr onic Paroxysmal supraventricular tachycardia chronic S/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) chroni c 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 Essential hypertension chron ic 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 Mixed hyperlipidemia chronic Paroxysmal supraventricular tachycardia chronic S/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) [facility] Work Phone: Evaluation note* Diagnosis Parkinson disease (HCC)- Primary Paralysis agitans RBD (REM behavioral disorder) REM sleep behavior disorder Gait instability Abnormality of gait [facility]* Diagnosis Onset Date Resolution Status Fatigue acute Chronic systolic heart failure chronic 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 Left bundle branch block chr onic Paroxysmal supraventricular tachycardia chronic S/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) chroni c Chronic systolic heart failure chronic 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 Left bundle branch block chr onic Paroxysmal supraventricular tachycardia chronic S/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) chroni c COVID-19 acute [facility] Work Phone: Evaluation note* Diagnosis Parkinson disease (HCC)- Primary Paralysis agitans [facility]* Diagnosis Onset Date Resolution Status Chronic systolic heart failure chronic 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 Left bundle branch block chr onic Paroxysmal supraventricular tachycardia chronic S/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) chroni c 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, 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 Essential hypertension chron ic 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 Mixed hyperlipidemia chronic Paroxysmal supraventricular tachycardia chronic Presence of stent in coronary artery March, chronic S/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) [facility] Work Phone: Evaluation note* Diagnosis Onset Date Resolution Status Chronic systolic heart failure chronic 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 Left bundle branch block chr onic Paroxysmal supraventricular tachycardia chronic S/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) chroni c 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, chronic Essential hypertension chron ic 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 Mixed hyperlipidemia chronic Paroxysmal supraventricular tachycardia chronic Presence of stent in coronary artery March, chronic S/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) [facility] Work Phone: Evaluation note* Diagnosis Parkinson disease (HCC) Paralysis agitans [facility] noteNo assessment information availableBlFour County Counseling [facility] Work Phone: Reason for referral (narrative)No reason for referral information availableBlParnassus campus Work Phone: Reason for Referral Specialty Diagnoses / Procedures Referred By Contac t Referred To Contact Diagnoses Parkinson disease (HCC) Procedures PROVIDER ORDERED FOLLOW UP OFFICE/OUTPATIENT NEW HIGH MDM 60-74 MINUTES Willie Haywood MD [address] [address] Referral ID Status Reason Start Date Expiration Date Visits Requested Visits Authorized [id number] Authorized PCP Requested Referral 12/21/2021 09/20/2022 1 1 Specialty Diagnoses / Procedures Referred By Contac t Referred To Contact [facility] Diagnoses Parkinson disease (HCC) Gait instability Procedures CONSULT TO PHYSICAL THERAPY PHYSICAL THERAPY EVALUATION HIGH COMPLEX 45 MINS Willie Haywood MD [address] [address] [facility] [place] [id number] [place] [address] Referral ID Status Reason Start Date Expiration Date Visits Requested Visits Authorized [id number] Pending Review Auto-Generat ed Referral 09/20/2021 09/20/2022 1 1 Specialty Diagnoses / Procedures Referred By Contac t Referred To Contact Diagnoses Parkinson disease (HCC) Procedures CONSULT TO [facility] Cherry Billingsley, RENATA.SPANISH INTERPRETER/TRANSLATOR [address] [place] [address] [address] [place] [id number] Referral ID Status Reason Start Date Expiration Date Visits Requested Visits Authorized [id number] Authorized PCP Requested Referral 01/16/2022 04/16/2022 1 1 Specialty Diagnoses / Procedures Referred By Contac t Referred To Contact Diagnoses Parkinson disease (HCC) Procedures PROVIDER ORDERED FOLLOW UP OFFICE/OUTPATIENT NEW HIGH MDM 60 MINUTES Willie Haywood MD [address] [address] Referral ID Status Reason Start Date Expiration Date Visits Requested Visits Authorized [id number] Authorized PCP Requested Referral 10/02/2023 09/01/2024 1 1 Referral ID Status Reason Start Date Expiration Date Visits Requested Visits Authorized [id number] Authorized PCP Requested Referral 12/19/2023 11/17/2024 1 1 Chief Complaint and Reason for Visit 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 [facility] @ 3:30 CONGESTION/COVID TEST INT LABS Reason for Visit Fatigue Chronic systolic heart failure Ischemic cardiomyopathy Left bundle branch block Paroxysmal supraventricular tachycardia S/P implantation of automatic cardioverter/defibrillator (AICD) Chronic systolic heart failure Ischemic cardiomyopathy Left bundle branch block Paroxysmal supraventricular tachycardia S/P implantation of automatic cardioverter/defibrillator (AICD) COVID-19 Chief Complaint 3 MO CK / PFM 3:30 6 M FU / JENA 3:00 Reason for Visit Chronic systolic hea rt failure Ischemic cardiomyopathy Left bundle branch block Paroxysmal supraventricular tachycardia S/P implantation of automatic cardioverter/defibrillator (AICD) 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 Essential hypertension Ischemic cardiomyopathy Mixed hyperlipidemia Paroxysmal supraventricular tachycardia Presence of stent in coronary artery S/P implantation of automatic cardioverter/defibrillator (AICD) Chief Complaint 6 MO CK / JHR 2:30 6 MO F/U / JENA 2:00 E-ORDER Reason for Visit Chronic systolic hea rt failure Ischemic cardiomyopathy Left bundle branch block Paroxysmal supraventricular tachycardia S/P implantation of automatic cardioverter/defibrillator (AICD) Aortocoronary bypass status Essential hypertension Ischemic cardiomyopathy Mixed hyperlipidemia Paroxysmal supraventricular tachycardia Presence of stent in coronary artery S/P implantation of automatic cardioverter/defibrillator (AICD) Chief Complaint Pacer Check Remote 6 M FU PACER CHECK PER [facility] INT LABS AND RAD Acute CHF, no echo since 2018 Reason for Visit Aortocoronary bypass status Essential hypertension Ischemic cardiomyopathy Mixed hyperlipidemia Paroxysmal supraventricular tachycardia Presence of stent in coronary artery S/P implantation of automatic cardioverter/defibrillator (AICD) Ischemic cardiomyopathy Paroxysmal supraventricular tachycardia S/P implantation of automatic cardioverter/defibrillator (AICD) Atherosclerotic heart disease of rincon coronary artery without angina pectoris Essential hypertension Ischemic cardiomyopathy Mixed hyperlipidemia Paroxysmal supraventricular tachycardia S/P implantation of automatic cardioverter/defibrillator (AICD) Chief Complaint Pacer Check Remote 6 M FU PACER CHECK PER [facility] INT LABS AND RAD Acute CHF, no echo since 2018 Pacer Check Remote 3 M FU / KR @ 2 2 m fu per KR / JENA @ 1:30 DYSPNEA/SOB Amb Documentation Reason for Visit Aortocoronary bypass status Essential hypertension Ischemic cardiomyopathy Mixed hyperlipidemia Paroxysmal supraventricular tachycardia Presence of stent in coronary artery S/P implantation of automatic cardioverter/defibrillator (AICD) Ischemic cardiomyopathy Paroxysmal supraventricular tachycardia S/P implantation of automatic cardioverter/defibrillator (AICD) Atherosclerotic heart disease of rincon coronary artery without angina pectoris Essential hypertension Ischemic cardiomyopathy Mixed hyperlipidemia Paroxysmal supraventricular tachycardia S/P implantation of automatic cardioverter/defibrillator (AICD) Ischemic cardiomyopathy Left bundle branch block Paroxysmal supraventricular tachycardia S/P implantation of automatic cardioverter/defibrillator (AICD) Atherosclerotic heart disease of [place] coronary artery without angina pectoris Essential hypertension Ischemic cardiomyopathy Mixed hyperlipidemia Paroxysmal supraventricular tachycardia S/P implantation of automatic cardioverter/defibrillator (AICD) Chief Complaint Pacer Check Remote 6 M FU PACER CHECK PER [facility] INT LABS AND RAD Acute CHF, no echo since 2018 Pacer Check Remote 3 M FU / KR @ 2 2 m fu per KR / JENA @ 1:30 DYSPNEA/SOB Amb Documentation CAD Coronary artery disease Amb Documentation Reason for Visit Aortocoronary bypass status Essential hypertension Ischemic cardiomyopathy Mixed hyperlipidemia Paroxysmal supraventricular tachycardia Presence of stent in coronary artery S/P implantation of automatic cardioverter/defibrillator (AICD) Ischemic cardiomyopathy Paroxysmal supraventricular tachycardia S/P implantation of automatic cardioverter/defibrillator (AICD) Atherosclerotic heart disease of [place] coronary artery without angina pectoris Essential hypertension Ischemic cardiomyopathy Mixed hyperlipidemia Paroxysmal supraventricular tachycardia S/P implantation of automatic cardioverter/defibrillator (AICD) Ischemic cardiomyopathy Left bundle branch block Paroxysmal supraventricular tachycardia S/P implantation of automatic cardioverter/defibrillator (AICD) Atherosclerotic heart disease of [place] coronary artery without angina pectoris Essential hypertension Ischemic cardiomyopathy Mixed hyperlipidemia Paroxysmal supraventricular tachycardia S/P implantation of automatic cardioverter/defibrillator (AICD) Chief Complaint Admit Date Pacer Check Remote September 12, 2024 3:19p m Chief Complaint Admit Date ADMISSION EXAM September 10, 2024 6:15pm Pacer Check Remote September 12, 2024 3:19p m Chief Complaint Admit Date ADMISSION EXAM September 10, 2024 6:15pm Pacer Check Remote September 12, 2024 3:19p m BENZODIAZAPINE EVALUATION September 22, 2024 5:15pm Chief Complaint Admit Date ADMISSION EXAM September 10, 2024 6:15pm Pacer Check Remote September 12, 2024 3:19p m BENZODIAZAPINE EVALUATION September 22, 2024 5:15pm ADMISSION/MONTHLY EXAM October 13, 2024 3 :45pm Chief Complaint Admit Date ADMISSION EXAM September 10, 2024 6:15pm ADMISSION EXAM September 10, 2024 6:18pm Pacer Check Remote September 12, 2024 3:19p m BENZODIAZAPINE EVALUATION September 22, 2024 5:15pm ADMISSION/MONTHLY EXAM October 13, 2024 3 :45pm Chief Complaint Admit Date ADMISSION EXAM September 10, 2024 6:15pm Pacer Check Remote September 12, 2024 3:19p m BENZODIAZAPINE EVALUATION September 22, 2024 5:15pm ADMISSION/MONTHLY EXAM October 13, 2024 3 :45pm Monthly Exam November 26, 2024 12:0 0pm Family History Relationship Condition Age at Onset Recorded Date/T davide Not Specified Cardiac disease Unknown mother Hypertension Unknown father Chronic obstructive pulmonary disease Unk nown Coronary artery disease Unknown Cerebrovascular accident (CVA) Unknown brother Coronary artery disease Unknown Diabetes mellitus Unknown Hypertension Unknown sister Hypertension Unknown son Hyperlipidemia Unknown Advance Directives Advance Directive Response Recorded Date/ Time Living Will No November 24, 2021 3:58pm Power of Gravel Hauler No November 24 3:58pm Advance Directive Response Recorded Date/ Time Living Will No November 24, 2021 2:58pm Power of Gravel Hauler No November 24 2:58pm Advance Directive Response Recorded Date/ Time Advance Directives Yes December 31, 2023 9:13am Advance Directive Response Recorded Date/ Time Advance Directives Yes December 17, 2024 3:56pm Summary Purpose Additional Source Comments Source Comments (unrecognize d section and content) In the event this informatio n is protected by the Federal Confidentiality of Alcohol and Drug Abuse Patient Records regulations: The Federal rules restrict any use of the information to criminally investigate or prosecute any alcohol or drug abuse patient.[facility] HealthcareIn the event this information is protected by the Federal Confidentiality of Alcohol and Drug Abuse Patient Records regulations: The Federal rules restrict any use of the information to criminally investigate or prosecute any alcohol or drug abuse patient.[facility] HealthcareIn the event this information is protected by the Federal Confidentiality of Alcohol and Drug Abuse Patient Records regulations: The Federal rules restrict any use of the information to criminally investigate or prosecute any alcohol or drug abuse patient.[facility] HealthcareIn the event this information is protected by the Federal Confidentiality of Alcohol and Drug Abuse Patient Records regulations: The Federal rules restrict any use of the information to criminally investigate or prosecute any alcohol or drug abuse patient.[facility] HealthcareIn the event this information is protected by the Federal Confidentiality of Alcohol and Drug Abuse Patient Records regulations: The Federal rules restrict any use of the information to criminally investigate or prosecute any alcohol or drug abuse patient.[facility] HealthcareIn the event this information is protected by the Federal Confidentiality of Alcohol and Drug Abuse Patient Records regulations: The Federal rules restrict any use of the information to criminally investigate or prosecute any alcohol or drug abuse patient.[facility] HealthcareIn the event this information is protected by the Federal Confidentiality of Alcohol and Drug Abuse Patient Records regulations: The Federal rules restrict any use of the information to criminally investigate or prosecute any alcohol or drug abuse patient.[facility] HealthcareIn the event this information is protected by the Federal Confidentiality of Alcohol and Drug Abuse Patient Records regulations: The Federal rules restrict any use of the information to criminally investigate or prosecute any alcohol or drug abuse patient.[facility] Reason for Visit (unrecogniz ed section and content) Reason Comments New Patient Parkinson's Disease Reason Comments Parkinson's Disease Specialty Diagnoses / Procedures Referred By Contac t Referred To Contact Diagnoses Parkinson disease (HCC) Procedures PROVIDER ORDERED FOLLOW UP OFFICE/OUTPATIENT [facility] 60-74 MINUTES Willie Haywood MD [facility] [address] [address] Referral ID Status Reason Start Date Expiration Date V isits Requested Visits Authorized [id number] Closed PCP Requested Referral 12/21/2021 09/20/2022 1 1 Reason Onset Date Comments Refill Request 01/22/2022 Reason Comments Symptom Management Reason Onset Date Comments Refill Request 09/02/2023 Reason Onset Date Comments Refill Request 11/15/2023 Reason Comments Home Care MD to follow Reason Comments Home Care Confirmation call Care Teams (unrecognized sec tion and content) Commercial Loan Administrator Relationship Specialty Start Date End Date Ted Hays Naun PCP - General 08/21/00 Commercial Loan Administrator Relationship Specialty Start Date End Date Ted Hays Naun PCP - General 08/21/00 Commercial Loan Administrator Relationship Specialty Start Date End Date Ted Hays Naun PCP - General 08/21/00 Team Status: Active Member Role Status Dates Dr. Juan Carlos Joel MD Family Provider Active Dr. Juan Carlos Joel MD Primary Care Provider Active Team Status: Inactive Member Role Status Dates Dr. Juan Carlos Joel MD Primary Care Provider, Referring P rovider Active Dr. Aaron Perez MD Attending Provider Active Team Status: Inactive Member Role Status Dates Dr. Juan Carlos Joel MD Primary Care Provider, Referring P rovider Active Kyara Santiago Attending Provider Active Team Status: Inactive Member Role Status Dates Dr. Juan Carlos Joel MD Primary Care Provider Active Dr. Aaron Perez MD Attending Provider, Referring Provider Active Commercial Loan Administrator Relationship Specialty Start Date End Date Ted Hays Naun PCP - General 08/21/00 Cherry Billingsley, RAIL DOWELING MACHINE OPERATOR.SPANISH INTERPRETER/TRANSLATOR [address] [place], [place] [id number] Specialty Android Developer Neurology 02/21/22 Rina Irvin, RENATA.SPANISH INTERPRETER/TRANSLATOR [address] [place] [address] Specialty Android Developer Neurology 05/21/22 Team Status: Inactive Member Role Status Dates Dr. Juan Carlos Joel MD Primary Care Provider, Referring P rovider Active Kwasi Lawler BARIATRIC PROGRAM COORDINATOR, BARIATRIC PROGRAM COORDINATOR-C Attending Provider Active Team Status: Inactive Member Role Status Dates Dr. Juan Carlos Joel MD Primary Care Provider Active Kwasi Lawler BARIATRIC PROGRAM COORDINATOR, BARIATRIC PROGRAM COORDINATOR-C Attending Provider, Referring Pro vider Active Team Status: Inactive Member Role Status Dates Dr. Juan Carlos Joel MD Primary Care Provider Active Dr. Daniel Kaplan MD Attending Provider Active Team Status: Inactive Member Role Status Dates Dr. Juan Carlos Joel MD Primary Care Provider, Referring P rovider Active Pamela Mackenzie BARIATRIC PROGRAM COORDINATOR, BARIATRIC PROGRAM COORDINATOR-C Attending Provider Active Team Status: Inactive Member Role Status Dates Dr. Juan Carlos Joel MD Primary Care Provider Active Pamela Mackenzie BARIATRIC PROGRAM COORDINATOR, BARIATRIC PROGRAM COORDINATOR-C Attending Provider, Referring P rovider Active Team Status: Inactive Member Role Status Dates Dr. Juan Carlos Joel MD Primary Care Provider, Attending P rovider Active Team Status: Active Member Role Status Dates Dr. Juan Carlos Joel MD Primary Care Provider Active Pamela Mackenzie BARIATRIC PROGRAM COORDINATOR, BARIATRIC PROGRAM COORDINATOR-C Attending Provider Active Team Status: Active Member Role Status Dates Dr. Juan Carlos Joel MD Primary Care Provider Active Dr. Daniel Kaplan MD Attending Provider Active Team Status: Active Member Role Status Dates Dr. Juan Carlos Joel MD Primary Care Provider Active Pamela Mackenzie BARIATRIC PROGRAM COORDINATOR, BARIATRIC PROGRAM COORDINATOR-C Referring Provider, Other Provi emi Active Dr. Daniel Kaplan MD Attending Provider Active Commercial Loan Administrator Relationship Specialty Start Date End Date Ted Hays PCP - General 08/21/00 Cherry Billingsley, RAIL DOWELING MACHINE OPERATOR.SPANISH INTERPRETER/TRANSLATOR [address] [place] [address] Specialty Android Developer Neurology 02/21/22 Rina Irvin, RAIL DOWELING MACHINE OPERATOR.SPANISH INTERPRETER/TRANSLATOR [address] [place], [place] [id number] Specialty Android Developer Neurology 05/21/22 Willie Haywood MD [address] [id number] Specialty Android Developer Neurology 04/24/23 Commercial Loan Administrator Relationship Specialty Start Date End Date Ted Hays PCP - General 08/21/00 Cherry Billingsley, RAIL DOWELING MACHINE OPERATOR.SPANISH INTERPRETER/TRANSLATOR [address] [place] [address] Specialty Android Developer Neurology 02/21/22 Rina Irvin RAIL DOWELING MACHINE OPERATOR.SPANISH INTERPRETER/TRANSLATOR [address] [place] [address] Specialty Android Developer Neurology 05/21/22 Willie Haywood MD [address] [id number] Specialty Android Developer Neurology 04/24/23 Team Status: Inactive Member Role Status Dates Dr. Juan Carlos Joel MD Primary Care Provider Active Start: September 12, 2024 End: September 12, 2024 Dr. Daniel Kaplan MD Attending Provider Active S tart: September 12, 2024 End: September 12, 2024 Team Status: Active Member Role/Relationship Status Dates Dr. Juan Carlos Joel MD Family Provider Active Dr. Juan Carlos Joel MD Primary Care Provider Active Team Status: Inactive Member Role/Relationship Status Dates Dr. Juan Carlos Joel MD Primary Care Provider Active Start: September 10, 2024 End: September 10, 2024 Hallie Campos NP, BARIATRIC PROGRAM COORDINATOR-C Attending Provider Active Start: September 10, 2024 End: September 10, 2024 Team Status: Inactive Member Role/Relationship Status Dates Dr. Juan Carlos Joel MD Primary Care Provider Active Start: September 12, 2024 End: September 12, 2024 Dr. Daniel Kaplan MD Attending Provider Active S tart: September 12, 2024 End: September 12, 2024 Dr. Daniel Kaplan MD Referring Provider Active S tart: September 12, 2024 End: September 12, 2024 Team Status: Inactive Member Role/Relationship Status Dates Dr. Juan Carlos Joel MD Primary Care Provider Active Start: September 22, 2024 End: September 22, 2024 Hallie Campos NP, BARIATRIC PROGRAM COORDINATOR-C Attending Provider Active Start: September 22, 2024 End: September 22, 2024 Team Status: Inactive Member Role/Relationship Status Dates Dr. Juan Carlos Joel MD Primary Care Provider Active Start: October 13, 2024 End: October 13, 2024 Dr. Adams Ivy MD Attending Provider Active Start: October 13, 2024 End: October 13, 2024 Team Status: Inactive Member Role/Relationship Status Dates Dr. Juan Carlos Joel MD Primary Care Provider Active Start: September 10, 2024 End: September 10, 2024 Hallie Campos NP BARIATRIC PROGRAM COORDINATOR-C Attending Provider Active Start: September 10, 2024 End: September 10, 2024 Team Status: Inactive Member Role/Relationship Status Dates Dr. Juan Carlos Joel MD Primary Care Provider Active Start: September 12, 2024 End: September 12, 2024 Dr. Daniel Kaplan MD Attending Provider Active S tart: September 12, 2024 End: September 12, 2024 Dr. Daniel Kaplan MD Referring Provider Active S tart: September 12, 2024 End: September 12, 2024 Team Status: Inactive Member Role/Relationship Status Dates Dr. Juan Carlos Joel MD Primary Care Provider Active Start: September 22, 2024 End: September 22, 2024 Hallie Campos NP BARIATRIC PROGRAM COORDINATOR-C Attending Provider Active Start: September 22, 2024 End: September 22, 2024 Team Status: Inactive Member Role/Relationship Status Dates Dr. Juan Carlos Joel MD Primary Care Provider Active Start: October 13, 2024 End: October 13, 2024 Dr. Adams Ivy MD Attending Provider Active Start: October 13, 2024 End: October 13, 2024 Team Status: Inactive Member Role/Relationship Status Dates Dr. Juan Carlos Joel MD Primary Care Provider Active Start: November 26, 2024 End: November 26, 2024 Hallie Campos NP BARIATRIC PROGRAM COORDINATOR-C Attending Provider Active Start: November 26, 2024 End: November 26, 2024 Goals (unrecognized section and content) Goals may be documented in a n alternate sectionGoals may be documented in an alternate sectionGoals may be documented in an alternate sectionGoals may be documented in an alternate sectionGoals may be documented in an alternate sectionGoals may be documented in an alternate sectionGoals may be documented in an alternate sectionGoals may be documented in an alternate sectionGoals may be documented in an alternate sectionGoals may be documented in an alternate sectionGoals may be documented in an alternate sectionGoals may be documented in an alternate sectionGoals may be documented in an alternate sectionGoals may be documented in an alternate section (unrecognized sect ion and content) No Status Records FoundNo Status Records Found INFORMATION SOURCE (unrecogn ized section and content) DATE CREATED AUTHOR 01/23/2024 [facility] DATE CREATED AUTHOR AUTHOR'S MARIANO PAEZ 12/13/2024 [facility] FOR RECORDS PERTAINING TO PATIENTS WHO [...] BE BASED ON THE PRIMARY CLINICAL RECORDS. [facility]. provides no warranty or guarantee of the accuracy or completeness of information in this document.
== END ==
LOC: OLS.WHLEAS 06:00
PROVIDERS: PCP Family Medicine; Visit Provider Internal Medicine
DX: N40.1 Benign prostatic hyperplasia with lower urinary tract symptoms (principal); G20.A1 Parkinson's disease without dyskinesia, without mention of fluctuations; I13.0 Hypertensive heart and chronic kidney disease with heart failure and stage 1 through stage 4 chronic kidney disease, or unspecified chronic kidney disease; I50.22 Chronic systolic (congestive) heart failure; N18.9 Chronic kidney disease, unspecified
CPT/HCPCS: 81001; 87086

== ENCOUNTER 2025-01-09 15:12 | Emergency (ER) | payer MEDICARE, OTHER, SELFPAY ==
[2025-01-09 15:13] VITALS: BP 139/89; PULSE 70; RESP 16; TEMP 36.1; O2SAT 93; BMI 17.0
--- NOTE | 2025-01-09 15:20 | CT_ITS ---
PROCEDURE: SPINE CERVICAL WITHOUT CONTRAS 01/09/2025 REASON FOR EXAM: FALL TECHNIQUE: Procedure Code: CTSPC Modality: CT Procedure: SPINE CERVICAL WITHOUT CONTRAS Coronal and Sagittal reconstruction series were provided. One or more dose reduction techniques were used (e.g., Automated exposure control, adjustment of the mA and/or kV according to patient size, use of iterative reconstruction technique. RADIATION DOSE SUMMARY: CTDlvol: Please see CT mGy DLP: 1209.15 mGycm COMPARISON: None FINDINGS: Osseous: Cervical vertebral body heights are maintained. Cervical lordosis is slightly accentuated. There is minimal retrolisthesis of C3 upon C4 and C4 upon C5 most likely on a degenerative basis. Remaining posterior cervical alignments are anatomic. Cervical facet joints are not subluxed or dislocated. The atlantodental interval is maintained. Atlanto occipital and atlantoaxial articulations are within normal range. There is no acute fracture of the cervical spine. Well corticated calcification noted within the nuchal ligament may represent an old injury or dystrophic soft tissue calcification. Severe degenerative changes of the cervical spine are noted with disc space loss, disc space gas, endplate irregularities, bony sclerosis, anterior osteophytes, posterior bony ridging, uncovertebral bony hypertrophy and facet arthropathy. If there are neurologic symptoms or radiculopathy, further evaluation by MRI is advised. Soft tissues: No focal prevertebral soft tissue swelling. No posterior paraspinal soft tissue hematoma. No cervical soft tissue emphysema. Vascular: Carotid calcifications noted. Vascular patency can not be assessed on this study. Thyroid gland: Diffuse heterogeneity of the thyroid gland to be correlated with thyroid function for possibility of thyroiditis. Lung apices: No acute abnormality at the visualized lung apices. Trachea: There is nodular appearing soft tissue debris dependently within the trachea at the level of the clavicular heads, possibly secretions or aspiration. Clinical correlation with symptoms. CT/Spine Cervical without Contras IMPRESSION: No acute fracture of the cervical spine. - Other findings and recommendations discussed above. Reading Location: [id number]
--- NOTE | 2025-01-09 15:20 | CT_ITS ---
PROCEDURE: BRAIN/HEAD WITHOUT CONTRAST 01/09/2025 REASON FOR EXAM: FALL TECHNIQUE: Procedure Code: CTBR Modality: CT Procedure: BRAIN/HEAD WITHOUT CONTRAST Coronal and Sagittal reconstruction series were provided. One or more dose reduction techniques were used (e.g., Automated exposure control, adjustment of the mA and/or kV according to patient size, use of iterative reconstruction technique. RADIATION DOSE SUMMARY: CTDlvol: Please see CT mGy DLP: Please see CT mGycm COMPARISON: None FINDINGS: Note: Images through the base of the brain and posterior fossa including the brainstem are slightly degraded by dental hardware and beam hardening artifact from the adjacent calvarium. Brain: There is no evidence of acute intracranial hemorrhage. Note is made that some parenchymal contusions may not be visible immediately. Consider follow-up imaging as clinically indicated. There is [id number] global parenchymal volume loss. No focal extra-axial fluid collection is seen. Appearance of the basal cisterns is unremarkable. There is no posterior fossa Chiari malformation. There is no midline shift or herniation. No evidence of pneumocephalus. Incidental intracranial calcifications noted. There is intracranial calcific atherosclerosis. No parenchymal changes are seen suggestive of cytotoxic edema to indicate an acute territorial vascular infarct. Note is made that CT changes may lag clinical findings an acute stroke. If indicated, consider follow-up imaging or diffusion-weighted MRI. Ventricles: There is prominence of the ventricles, however this is commensurate with degree of parenchymal volume loss. The ventricles do not appear obstructed. Pituitary: The pituitary fossa does not appear enlarged. The pituitary stalk does not appear deviated. Soft tissues: No pericranial scalp hematoma. Osseous: No acute calvarial fracture. No suspicious bone lesion. Visualized paranasal sinuses: No fluid in the paranasal sinuses. Mastoids: No fluid or opacification of mastoid air cells. Middle ear cavities: The visualized middle ear cavities are not opacified. CT/Brain/Head without Contrast IMPRESSION: No evidence of acute intracranial injury. No evidence of acute intracranial hemorrhage or acute calvarial fracture. - Parenchymal volume loss and associated ex vacuo ventricular distention. - Other findings discussed above. Reading Location: [id number]
--- NOTE | 2025-01-09 15:21 | EKG12_ITS ---
Test Reason : FALL/HEAD INJURY Blood Pressure : */* mmHG Vent. Rate : 70 BPM Atrial Rate : 234 BPM P-R Int : * ms QRS Dur : 200 ms QT Int : 496 ms P-R-T Axes : * 261 78 degrees QTcB Int : 535 ms Atrial flutter and Ventricular-paced rhythm Abnormal ECG Confirmed by Julius Fontenot ([id number]), editor magazine [employer]IMI [employer] ([id number]) on 01/12/2025 5:44:53 AM Referred By: Confirmed By: Julius Fontenot
--- NOTE | 2025-01-09 15:22 | EX.ED.GENINJ ---
HPI History of Present Illness Chief Complaint: Head Injury Detail of Chief Complaint: Head injury Informant: patient, EMS and SNF Narrative Narrative: Patient presents to the emergency department from extended-care facility via EMS after being found on the floor with an injury to his forehead. Patient has history of Parkinson's. He tells me he is not on blood thinners. He does not know what happened. He states he hurts everywhere. He is a very poor historian. Patient denies chest pain or palpitations currently. Denies abdominal pain. Denies recent illness. [facility] Medical History Presence of cardiac resynchronization therapy pacemaker ([employer]) Parkinson's disease Mixed hyperlipidemia Abnormal echocardiogram Nonrheumatic mitral (valve) prolapse Presence of stent in coronary artery (~03/21/10) Essential hypertension Paroxysmal supraventricular tachycardia Chest discomfort Fatigue Angina pectoris Atherosclerotic heart disease of minto coronary artery without angina pectoris Ischemic cardiomyopathy Left bundle branch block Chronic systolic heart failure [employer] [facility] use of drug Abnormal electrocardiogram Nonspecific abnormal unspecified cardiovascular function study Paroxysmal supraventricular tachycardia by electrocardiogram (ECG) Home Medications ?Medication ?Instructions ?Recorded ?Last Taken ?Type aspirin 81 mg tablet,delayed 81 mg PO DAILY@0800 heart health 04/21/13 12/30/23 History release nitroglycerin 0.4 mg sublingual 0.4 mg sublingual Q5M PRN Chest 06/12/19 Unknown Rx tablet Pain #25 tabs Held on 04/30/24. Instructions: Resume on 05/07/24. Please continue to hold hypertensive regimen and diuretic therapy until BP appropriate. During presentation did have sepsis associated with his urinary tract infection and bacteremia with hold on all of these regimens with improvement of blood pressure but still low normal range. albuterol sulfate 90 mcg/actuation 2 puff inhalation Q6H PRN 01/27/20 Unknown Rx aerosol inhaler shortness of breath or wheezing #6.7 grams carbidopa 25 mg-levodopa 100 mg 2 tab PO 4X/DAY parkinsons 06/25/23 01/18/24 17:00 History tablet 2 tabs Handicap Placcard #1 ea 07/25/23 Unknown Rx finasteride 5 mg tablet 5 mg PO DAILY prostate health 12/19/23 12/31/23 History mirtazapine 30 mg tablet 30 mg PO DAILY mood 12/19/23 Unknown History tamsulosin 0.4 mg capsule 0.4 mg PO DAILY prostate 12/19/23 Unknown History spironolactone 25 mg tablet 12.5 mg (1/2 x 25 mg) PO DAILY 30 01/21/24 Unknown Rx Held on 04/30/24. days #15 tabs Instructions: Resume on 05/07/24. Please continue to hold hypertensive regimen and diuretic therapy until BP appropriate. During presentation did have sepsis associated with his urinary tract infection and bacteremia with hold on all of these regimens with improvement of blood pressure but still low normal range. furosemide 20 mg tablet (Lasix) 20 mg PO SUTUTH 04/26/24 Unknown History Held on 04/30/24. Instructions: Resume on 05/07/24. Please continue to hold hypertensive regimen and diuretic therapy until BP appropriate. During presentation did have sepsis associated with his urinary tract infection and bacteremia with hold on all of these regimens with improvement of blood pressure but still low normal range. indapamide 1.25 mg tablet 1.25 mg PO MOWEFR 04/26/24 Unknown History Held on 04/30/24. Instructions: Resume on 05/07/24. Please continue to hold hypertensive regimen and diuretic therapy until BP appropriate. During presentation did have sepsis associated with his urinary tract infection and bacteremia with hold on all of these regimens with improvement of blood pressure but still low normal range. magnesium hydroxide 400 mg/5 mL 30 ml PO Q6H PRN constipation 04/26/24 Unknown History oral suspension (Milk of Magnesia) sennosides 8.6 mg-docusate sodium 2 tab-cap PO BID 04/26/24 Unknown History 50 mg capsule (Senna Plus) acetaminophen 325 mg tablet 650 mg (2 x 325 mg) PO Q4H PRN PRN 04/30/24 Unknown Rx Fever, pain 1-02/12 #0 tabs ascorbic acid (vitamin C) 500 mg 500 mg PO DAILY #0 tabs 04/30/24 Unknown Rx tablet atorvastatin 80 mg tablet 80 mg PO QHS #0 tabs 04/30/24 Unknown Rx cefdinir 300 mg capsule 300 mg PO BID UTI, bacteremia 5 04/30/24 Unknown Rx days #10 caps melatonin 10 mg sublingual tablet 10 mg PO HS PRN insomnia #0 tabs 04/30/24 Unknown Rx menthol 0.44 %-zinc oxide 20.6 % 1 applic topical 4X/DAY #0 grams 04/30/24 Unknown Rx topical ointment (Calmoseptine) oxycodone 5 mg tablet 5 mg PO .QID pain 30 days #120 tabs 01/01/25 Unknown Rx oxycodone 5 mg tablet 5 mg PO .qid pain 30 days #120 tabs 01/05/25 Unknown Rx Allergy/AdvReac Type Severity Reaction Status Date / Time adhesive tape Allergy NEEDS Verified 04/26/24 14:31 FOLLOW-UP Family History Mother Hypertension Father COPD (chronic obstructive pulmonary disease) CAD (coronary artery disease) Hx CABG CVA (cerebral vascular accident) Brother CAD (coronary artery disease) Diabetes Hypertension Sister Hypertension Son HLD (hyperlipidemia) Other Heart disease Surgical History History of open reduction and internal fixation (ORIF) procedure (~1979) History of bilateral inguinal hernia repair History of right hip replacement History of percutaneous transluminal coronary angioplasty (~03/21/10) S/P implantation of automatic cardioverter/defibrillator (AICD) Aortocoronary bypass status (~01/23/95) Social History (Updated 04/26/24 @ 17:[address] Maria Fernanda Wisdom MD) household members: spouse Smoking Status: Never smoker alcohol intake: never substance use type: does not use caffeine: Yes Type: carbonated beverages Number of servings: 1 what type of physical activity do you participate in: none seatbelt use: always do you feel safe at home: Yes ROS ROS ED Review of Systems ROS Unobtainable: other Constitutional Constitutional ED: Reports lethargy; Denies chills, fever(s), sweats or weight loss Eyes Eyes: Denies blurry vision, change in vision or diplopia ENT ENT ED: Reports other Details: Right forehead laceration ; Denies rhinorrhea or sore throat Cardiovascular Cardiovascular: Denies chest pain, orthopnea or racing heartbeat Respiratory/Chest Respiratory/Chest: Reports dyspnea and dyspnea on exertion; Denies cough, orthopnea or sputum Gastrointestinal Gastrointestinal: Denies abdominal pain, diarrhea, nausea or vomiting Genitourinary Genitourinary ED: Denies dysuria, hematuria or urinary frequency Musculoskeletal Musculoskeletal: Reports neck pain; Denies arthralgias, back pain or myalgias Integumentary Denies abscess, Abrasions or rash Neurologic Neurologic: Reports headache(s); Denies weakness Psychiatric Psychiatric: Denies anxiety, depression or suicidal thoughts Endocrine Endocrinology: Denies polydipsia, polyphagia or polyuria Hematologic/Lymphatic Hematologic/Lymphatic: Denies easy bleeding, easy bruising or lymphadenopathy Allergic/Immunologic Allergic/Immunologic ED: Denies mouth swelling, tongue swelling or urticaria EXAM Physical Exam Const Vital Signs: 01/09/25 15:13 01/09/25 18:02 Temperature 96.9 F L Temperature Source Axillary Pulse Rate 70 71 Respiratory Rate 16 18 Blood Pressure 139/89 H 153/95 H Blood Pressure Mean 105 114 Pulse Ox 93 97 Oxygen Delivery Method Room Air Room Air Positive well developed and cachectic; Negative for well nourished General Appearance ED: well developed, cachectic and NAD Nutritional Appearance: cachectic HEENT Reports TM's clear and moist mucous membranes HEENT Narrative: Patient has a 5 cm laceration medial right forehead extending towards the medial portion of the eyebrow. No bony step-offs or depressions. normocephalic; Negative for trauma or tenderness Tympanic Membrane ED: Yes TM's clear Eyes PERRL and EOMs intact bilaterally General Eye ED: Negative for pale conjunctiva or scleral icterus Neck no lymphadenopathy, supple and no JVD Neck Narrative: Mild diffuse tenderness. No bony step-offs noted on exam. General: tenderness Chest Wall inspection of chest normal and palpation of chest normal Chest: Negative for tenderness Resp normal respiratory effort and clear to auscultation bilaterally Effort and Inspection: Negative for respiratory distress or pain with movement Auscultation: Negative for rhonchi, wheezes or diminished lung sounds Cardio regular rate, regular rhythm, S1 normal heart sound, S2 normal heart sound and no murmurs Peripheral Pulses: pulses 2+ throughout GI normal to inspection, nondistended, normoactive bowel sounds, soft to palpation, non-tender, non-distended and no masses Back/Spine no CVA tenderness and no thoracic nor lumbar tenderness Extremity normal to inspection General Extremety ED: Negative for edema General Extremity: Negative for edema Neuro oriented x3, CN's II-XII intact bilaterally, no sensory deficits noted and gait normal Sensorium / Orientation: awake, alert, oriented to person, oriented to place and oriented to time Motor Exam: strength 5/5 throughout and strength abnormal Psych mental status grossly normal Skin no rashes or lesions noted and no wounds PROC Procedures Lacerations Forehead laceration: Length: 1.97 in Depth: Sub Q Shape: Linear Prep: Sterile Conditions and Shure-Clens Laceration repair: Irrigated, Lidocaine, Lidocaine with epi and Local Irrigated (ml): 50 Number of Sutures/Linda: 8 Suture Information: Ethilon, Simple and 5-0 MDM MDM MDM Narrative Medical decision making narrative: Patient with unwitnessed fall with laceration to his forehead. IV line established. CT scan of the brain without contrast obtained showed no acute injury. CT C-spine showed no fractures. Chest x-ray showed possible right lower lobe consolidation. states he just has an occasional cough like clearing his throat. Patient has a white count of 8.5 with hemoglobin 13.7 and platelet count of 249. Chemistries show a high sodium of 149 with potassium 3.2. Glucose was 109. X-rays of the pelvis showed no fractures Lab Data Attestation: I reviewed the patient's lab results. Labs: Laboratory Results - last 24 hr 01/09/25 15:35 WBC 8.5 RBC 4.37 L Hgb 13.7 Hct 41.3 MCV 94.5 H MCH 31.4 MCHC 33.2 RDW Std Deviation 49.1 H RDW Coeff of Patricia 14.0 Plt Count 249 MPV 10.0 Immature Gran % (Auto) 0.500 Neut % (Auto) 78.0 H Lymph % (Auto) 12.8 L [place] % (Auto) 7.7 Eos % (Auto) 0.5 Baso % (Auto) 0.5 Absolute Neuts (auto) 6.6 Absolute Lymphs (auto) 1.08 Nucleated RBC % 0 Sodium 149 H Potassium 3.2 L Chloride 111 H Carbon Dioxide 24.2 Anion Gap 14 BUN 19 Creatinine 0.90 Estim Creat Clear Calc 49.17 L Est GFR (MDRD) Non-Af 86 BUN/Creatinine Ratio 20.7 H Glucose 109 H Calcium 9.1 Radiography Diagnostic Testing: Clinical Impression(s) from Imaging Studies Brain CT 01/09/25 15:20 IMPRESSION: No evidence of acute intracranial injury. No evidence of acute intracranial hemorrhage or acute calvarial fracture. - Parenchymal volume loss and associated ex vacuo ventricular distention. - Other findings discussed above. Reading Location: [facility] Cervical Spine CT 01/09/25 15:20 IMPRESSION: No acute fracture of the cervical spine. - Other findings and recommendations discussed above. Reading Location: [facility] Chest X-Ray 01/09/25 16:00 IMPRESSION: 1. Right lung base consolidation. Small right and trace left pleural effusions. 2. Cardiomegaly with diffuse pulmonary vascular congestion. [facility] Pelvis X-Ray 01/09/25 16:00 IMPRESSION: No radiographic evidence of an acute osseous injury. - Findings discussed above in detail. Reading Location: [facility] 1 view chest x-ray obtained interpreted by myself as increased markings right lower lobe. Radiology in agreement felt this may represent consolidation. He had cardiomegaly. 1 view x-ray of pelvis obtained interpreted by myself no evidence of fracture or dislocation. Radiology in agreement. EKG Initial EKG: Attestation: I personally reviewed and interpreted this EKG as follows: Comments: Atrial flutter ventricularly paced rhythm Discharge Plan Triage Chief Complaint: Head Injury ED Provider: Eliana Bennett Dx/Rx/DC Orders Clinical Impression: Fall, Closed head injury, Laceration of scalp, Acute hypernatremia, Acute hypokalemia Instructions: Hypernatremia Dc, ED Head Injury (Adult), ED Hypokalemia, ED Laceration, All Closures Prescriptions: No Action nitroglycerin 0.4 mg tablet, sublingual 0.4 mg SUBLINGUAL Q5M PRN (Reason: Chest Pain) Qty: 25 1RF tamsulosin 0.4 mg capsule 0.4 mg PO DAILY mirtazapine 30 mg tablet 30 mg PO DAILY finasteride 5 mg tablet 5 mg PO DAILY aspirin 81 MG tablet 81 mg PO DAILY@0800 carbidopa-levodopa 25-100 mg tablet 2 tab PO 4X/DAY Patient Comments: takes 2 tabs at 0900, 1300, 1700, 2100 spironolactone 25 mg Tablet 12.5 mg PO DAILY 30 Days Qty: 15 2RF Senna Plus 8.6-50 mg capsule 2 tab-cap PO BID indapamide 1.25 mg tablet 1.25 mg PO MOWEFR magnesium hydroxide [Milk of Magnesia] 400 mg/5 mL suspension 30 ml PO Q6H PRN (Reason: constipation) furosemide [Lasix] 20 mg tablet 20 mg PO SUTUTH atorvastatin 80 mg Tablet 80 mg PO QHS Qty: 0 0RF acetaminophen 325 mg Tablet 650 mg PO Q4H PRN PRN (Reason: Fever, pain -02/12) Qty: 0 0RF ascorbic acid (vitamin C) 500 mg Tablet 500 mg PO DAILY Qty: 0 0RF menthol-zinc oxide [Calmoseptine] 0.44-20.6 % Ointment 1 applic topical 4X/DAY Qty: 0 0RF Protocol: *Topical Application Instructions APPLICATION INSTRUCTIONS: apply to affected region melatonin 10 mg Tablet, Sublingual 10 mg PO HS PRN (Reason: insomnia) Qty: 0 0RF cefdinir 300 mg capsule 300 mg PO BID 5 Days Qty: 10 0RF albuterol sulfate 90 mcg/actuation HFA aerosol inhaler 2 puff INHALATION Q6H PRN (Reason: shortness of breath or wheezing) Qty: 6.7 0RF (DME) Handicap Placcard See Rx Instructions .Route .MEDSUPPLY Qty: 1 0RF Rx Instructions: Dx: Debility Exp: 07/2028 oxycodone 5 mg tablet 5 mg PO .QID 30 Days Qty: 120 0RF oxycodone 5 mg tablet 5 mg PO .qid 30 Days Qty: 120 0RF Primary Care Provider: Juan Carlos Joel Referrals: Juan Carlos Joel MD [Primary Care Provider] - 10 Day for suture removal Print Language: Faroese Disposition Disposition: Home, Self Care
--- OUTSIDE RECORDS SUMMARY | 2025-01-09 15:29 | XMS RPT_ITS | CCD ---
Author Organization [facility] CliniSyor Care Team Providers Care Escort Blind Name Role Phone RAMIRO Santiago, Jena Garcia Unavailable Unavailable Cassandra RUBIO, Karen Garsia Unavailable RACHEL Jorgensen, Karen aGrcia Unavailable Vero RUBIO, Shweta Leavitt Unavailable Unavailable Valarie Duffy Unavailable Unavailable Valarie Duffy Unavailable Unavailable RAMIRO Santiago, Jena Garcia Unavailable Unavailable Aaron Perez MD Unavailable [facility] Nurse Unavailable Unavailable RACHEL Jorgensen, Karen Garcia Unavailable [facility] Ted Magallon Primary Care Provider UnavailDr. Juan Carlos Martínez Primary Care Provider Dr. Juan Carlos Joel Referring Provider Kyara Santiago Attending Provider Unavailable PRETTY Diaz Attending Provider [place] Primary Care Provider UnavailTed Javier Primary Care Provider UnavailDr. Juan Carlos Martínez Primary Care Provider Dr. Juan Carlos Joel Referring Provider [phone] Kyara Santiago Attending Provider Unavailable Dr. Aaron Perez Attending Provider [facility] Ted Naun Primary Care Provider Unavailselina Billingsley SUPERVISOR PREPRESSCherry BEDOYA Unavailable [phone] Rina Irvin APRN.CNP Unavailable Dr. Juan Carlos Joel Primary Care Provider Dr. Juan Carlos Joel Referring Provider Kyara Santiago Attending Provider Unavailable Bucky MEDICAL EDUCATION MANAGER, MEDICAL EDUCATION MANAGER-C Kwasi Murcia Attending Provider Dr. Juan Carlos Joel Primary Care Provider Dr. Daniel Kaplan Attending Provider Dr. Juan Carlos Joel Referring Provider Roof MEDICAL EDUCATION MANAGER, MEDICAL EDUCATION MANAGER-C Kwasi Murcia Attending Provider Kyara Santiago Attending Provider Unavailable Gurdeep MEDICAL EDUCATION MANAGER, MEDICAL EDUCATION MANAGER-C Pamela Attending Provider Dr. Juan Carlos Joel Primary Care Provider Dr. Daniel Kaplan Attending Provider Dr. Juan Carlos Joel Referring Provider Roof MEDICAL EDUCATION MANAGER, MEDICAL EDUCATION MANAGER-C Kwasi Murcia Attending Provider Kyara Santiago Attending Provider Unavailable Gurdeep MEDICAL EDUCATION MANAGER, MEDICAL EDUCATION MANAGER-C Pamela Attending Provider Gurdeep MEDICAL EDUCATION MANAGER, MEDICAL EDUCATION MANAGER-C Pamela Referring Provider Gurdeep MEDICAL EDUCATION MANAGER, MEDICAL EDUCATION MANAGER-C Pamela Other Provider Ted Hays Primary Care Provider Unavailselina Billingsley SUPERVISOR PREPRESS.CNA PER DIEM, Cherry K Unavailable [phone] Albaro SUPERVISOR PREPRESS.CNA PER DIEM, Rina Unavailable Willie Haywood MD Unavailable Dr. Juan Carlos Joel MD Primary Care Provider Dr. Daniel Kaplan MD Attending Provider Dr. Juan Carlos Joel MD Primary Care Provider Hallie Mccarthy Attending Provider Dr. Daniel Kaplan MD Referring Provider Dr. Adams Ivy MD Attending Provider Adams Ivy MD Attending Provider Unavaila Adams Torrez Attending UnavailJuan Carlos Martínez Primary Care Unavailable Juan Carlos Joel Primary Care Unavailable Maria Fernanda Wisdom Consulting Unavailable Maria Fernanda Wisdom Admitting Unavailable Maria Fernanda Wisdom Attending Unavailable Shanel Moses Consulting Unavailable Juan Carlos Joel Primary Care Unavailable Daniel Kaplan Attending Unavailable Juan Carlos Joel Attending Unavailable Joel, Juan Carlos Referring Unavailable Joel, Juan Carlos Primary Care Unavailable White, Maria Fernanda L Attending Unavailable White, Maria Fernanda L Consulting Unavailable Joel, Juan Carlos Primary Care Unavailable White, Maria Fernanda L Admitting Unavailable Shanel Moses Consulting Unavailable Joel, Juan Carlos Primary Care Unavailable AggieeUlissesewongbe Attending Unavailable Eusebio, Daniel Attending Unavailable Joel, Juan Carlos Primary Care Unavailable TicktonHallie Attending Unavailable Joel, Juan Carlos Primary Care Unavailable Joel, Juan Carlos Primary Care Unavailable Eusebio, Daniel Referring Unavailable Eusebio, Hamilton Attending Unavailable Joel, Juan Carlos Primary Care Unavailable Eusebio, Daniel Attending Unavailable Oleghe, Efewongbe Attending Unavailable Joel, Juan Carlos Primary Care Unavailable Damianton, Hallie Attending Unavailable Joel, Juan Carlos Primary Care Unavailable Joel, Juan Carlos Primary Care Unavailable Eusebio, Hamilton Attending Unavailable Eusebio, Daniel Referring Unavailable Irlanda Aldanas F Consulting Unavailable Marlo Aldanaolas F Admitting Unavailable Joel, Juan Carlos Primary Care Unavailable Nestor Leone Attending Unavailable Nestor Leone Consulting Unavailable Gilmer Motta Consulting Unavailable Shanel Moses Attending Unavailable Amilcar Quezada Consulting Unavailable Dorian Michelle Consulting Unavailable Valentin Rodriguez Consulting Unavailable Reji Connelly Consulting Unavailable Nick Lucia Consulting Unavailable Froylan Coronado Consulting Unavailable Marina Newman Consulting UnavailTerrell Arrieta Consulting Unavailable Klever Agrawal Consulting Unavailable Mario Alberto Corley Consulting Unavailable Brenda Craig Consulting Unavailable Lyndsey Sanchez Consulting Unavailable Robert Rm Consulting Unavailable Howard Perez Consulting Unavailable Kin Lee Consulting Unavailable Tushar Garcia Consulting Unavailable Cheri Rosas Consulting Unavailable Abdon Brito Consulting Unavailable Drew Hale Consulting Unavailable Domingo Johnson Consulting Unavailable Joel, Juan Carlos Primary Care Unavailable Eusebio, Hamilton Referring Unavailable Eusebio, Daniel Attending Unavailable Biju, Ulissesewongbe Attending Unavailable Joel, Juan Carlos Primary Care Unavailable Joel, Juan Carlos Primary Care Unavailable Irlanda Aldanas F Consulting Unavailable Noman Aldana F Attending Unavailable Marlo Aldanaolas F Admitting Unavailable Joel, Juan Carlos Primary Care Unavailable Jovan, Noman F Admitting Unavailable Marlo Aldanaolas F Consulting Unavailable Nestor Leone Attending Unavailable Hallie Campos Attending Un[facility] Unavailable Hallie Campos Attending Un[facility] Unavailable Hallie Campos Attending Unavailable [facility] Primary Care Unavailable [facility] Primary Care Unavailable Daniel Kaplan Attending Unavailable Daniel Kaplan Referring Unavailable Valentin Rodriguez Attending Unavailable Maria Fernanda Wisdom Referring Unavailable Adams Hernandez Attending Unavailselina noriega [facility] Unavailable Adams Hernandez Attending Unavailselina noriega Allergies Allergy Classification Reported Allergen(s) Allergy Type Date of Onset Reaction(s) Facility (3 sources) Adhesive Tape; Translations: [adhesive tape] Allergy to substance NEEDS FOLLOW-UP [facility] Medications Current Medications Medication Drug Class(es) Dates Sig (Normalized) Sig (Original) acetaminophen 325 mg oral tablet (16 sources) Start: 04-30-2024 take 2 tablets by [...] 26, 2024 1:00am April 30, 2024 2:18pm [id number] 200 actuat albuterol 0.09 mg/actuat metered dose [...] TBEC One tablet by mouth daily ASPIRIN [id number] Aaron Perez MD Start: 11-02-2010 take 1 tablet by carlota th once daily ASPIRIN 325 MG TABS One tablet by mouth daily ASPIRIN [id number] Kim Graham Start: 03-05-2005 take 1 tablet [...] d aily. cefdinir 300 mg oral capsule (8 sources) Cephalosporin Antibacterial Start: 4 take 1 [...] Active docusate sodium 50 mg / sennosides, residential 8.6 mg oral capsule (8 sources) Start: 04-26-2024 Sennosides-Docusate Sodium (Senna Plus) 8.6-50 mg capsule Active 2 NMA PO TWICE A DAY April 26, 2024 1:00am finasteride 5 mg oral tablet (8 sources) 5-alpha Reductase Inhibitor Start: 12-19-2023 take 1 tablet by mouth once daily Finasteride 5 mg tablet Active 5 mg PO DAILY December 19, 2023 12:00am [facility] Handicap Placcard (20 sources) Start: 07-25-2023 Handicap Placcard Active 0 [...] 3:32pm Dx: Debility Exp: 07/2028 Magnesium Hydroxide (8 sources) Start: 04-26-2024 take 1 mL by [...] 26, 2024 5:42pm Menthol / Zinc Oxide (8 sources) Start: 04-30-2024 Menthol-Zinc O xide (Calmoseptine) [...] Protocol details. mirtazapine 30 mg oral tablet (8 sources) Start: 12-19-2023 take 1 tablet by mouth once daily Mirtazapine 30 mg tablet Active 30 mg PO DAILY December 19, 2023 12:00am mood oxyCODONE hydrochloride 5 mg oral tablet (17 sources) Opioid Agonist Start: 12-04-2024 take 2.5 [...] daily. tamsulosin hydrochloride 0.4 mg oral capsule (8 sources) alpha-Adrenerg ic Ganga Start: 12-19-2023 take [...] Aromatic Amino Acid Start: 05-20-19 End: 06-25-19 take 2 tablets by mouth four times [...] One tablet by mouth at bedtime. CARBIDOPA-LEVODOPA [id number] Aaron Perez MD Start: 05-19-2015 take 1 tablet by carlota th at bedtime SINEMET CR 50-200 MG CR-TABS One tablet by mouth at bedtime. CARBIDOPA-LEVODOPA [id number] Aaron Perez MD Start: 04-21-2013 End: 07-18-2017 [...] tablet by mouth three times daily CARBIDOPA-LEVODOPA [id number] Kim Graham Comment on above: Take 2 tablets by mo uth four times daily. Take 2 tablets by mo uth three times daily. cholecalciferol 0.25 mg oral [...] 9:22am Start: 10-12-2013 take 1 tablet by carlota th once daily VITAMIN D3 2000 UNIT CAPS One tablet by mouth daily CHOLECALCIFEROL [id number] Karen Jorgensen PA-C Start: 10-12-2013 VITAMIN D3 200 0 UNIT CAPS 5,000 IU twice daily CHOLECALCIFEROL [id number] Aaron Perez MD citalopram 20 mg oral [...] One tablet by mouth daily CLOPIDOGREL BISULFATE [id number] Aaron Perez MD digoxin 0.25 mg oral tablet (20 sources) Cardiac Glycoside Start: 05-17-2023 End: 05-20-2023 Digoxin 250 mcg (0.25 mg) tablet Discontinued 0 .ROUTE .COMPLEX May 17, 2023 2:27pm May 20, 2023 3:01pm TAKE 1 TABLET EVERY DAY Start: 03-05-2005 End: 05-20-2023 take 1 tablet by mouth once daily Digoxin 250 mcg (0.25 mg) tablet Discontinued 250 ug PO DAILY 90 May 01, 2022 9:10am May 17, 2023 2:28pm Comment on above: Take one(1) tablet d aily. ergocalciferol 16900 unt oral capsule (13 sources) Provitamin D2 Compound Start: 10-13-19 take 1 tablet by mouth once daily VITAMIN D (ERGOCALCIFEROL) 32713 UNIT CAPS One tablet by mouth daily ERGOCALCIFEROL [id number] Karen Jorgensen PA-C Start: 10-12-2013 take 1 tablet by carlota th once daily VITAMIN D (ERGOCALCIFEROL) 50902 UNIT CAPS One tablet by mouth daily ERGOCALCIFEROL [id number] Karen Jorgensen PA-C etodolac 400 mg oral tablet (20 sources) Nonsteroidal Anti-inflammatory Drug Start: 08-23-2011 End: 09-26-2012 take 1 tablet by mouth twice daily ETODOLAC 400 MG TABS One tablet by mouth twice daily ETODOLAC [id number] Aaron Perez MD furosemide 20 mg oral tablet (20 sources) Loop Diuretic Start: 01-21-2024 End: 04-26-2024 Furosemide (Lasix) 20 mg tablet Active 20 mg PO SUTUTH April 26, 2024 1:00am On Hold: Resume [...] Disc ontinued 20 mg PO DAILY 5 0 December 19, 2023 3:25pm January 21, 2024 [...] on above: Take one(1) tablet d aily. indapamide 1.25 mg oral tablet (16 sources) Thiazide-like Diuretic Start: 04-26-2024 Indapamide 1.25 mg tablet Active 1.25 mg PO April 26, 2024 1:00am On Hold: Resume [...] th once daily TOPROL XL 100 MG [id number] One tablet by mouth daily METOPROLOL SUCCINATE [id number] Aaron Perez MD Comment on above: Take 50 mg by mouth once daily. 24 hr niacin 1000 mg extended release oral tablet (20 sources) Nicotinic Acid Start: 11-02-2010 End: 10-12-2013 take 1 tablet by mouth at bedtime NIASPAN 1000 MG CR-TABS One tablet by mouth at bedtime. with low fat snack NIACIN (ANTIHYPERLIPIDEMIC) [id number] Aaron Perez MD Start: 03-05-2005 End: 09-20-2021 [...] 5 min up to 3 X NITROGLYCERIN [id number] Aaron Perez MD Start: 11-02-2010 NITROGLYCERIN 0.4 MG/HR PT24 1 tablet under tongue every 5 min up to 3 X NITROGLYCERIN [id number] Kim Graham OMEGA-3 FATTY ACIDS CPDR (10 sources) Start: 11-02-2010 take 1 tablet by mouth once daily OMEGA 3 CPDR One tablet by mouth daily OMEGA-3 FATTY ACIDS CPDR [id number] Kim Graham Start: 11-02-2010 End: 02-25-2012 take 1 tablet by mouth once daily OMEGA 3 CPDR One tablet by mouth daily OMEGA-3 FATTY ACIDS CPDR [id number] Aaron Perez MD OMEGA-3 FATTY ACIDS CPDR (16 sources) Start: 11-02-2010 End: 02-25-2012 take 1 tablet by mouth once daily OMEGA 3 CPDR One tablet by mouth daily OMEGA-3 FATTY ACIDS CPDR [id number] Aaron Perez MD Start: 11-02-2010 take 1 tablet by carlota th once daily OMEGA 3 CPDR One tablet by mouth daily OMEGA-3 FATTY ACIDS CPDR [id number] Kim M Gladys Start: 11-02-2010 take 1 tablet by carlota th once daily OMEGA 3 CPDR One tablet by mouth daily OMEGA-3 FATTY ACIDS CPDR [id number] Kim M Gladys Start: 11-02-2010 End: 02-25-2012 take 1 tablet by mouth once daily OMEGA 3 CPDR One tablet by mouth daily OMEGA-3 FATTY ACIDS CPDR [id number] Aaron Perez MD ramipril 1.25 mg oral capsule (20 sources) Angiotensin Converting Enzyme Inhibitor Start: 01-21-2024 End: 04-26-2024 take 1 capsule by mouth once daily Ramipril 1.25 mg Capsule Discontinued 1.25 mg PO DAILY January 21, 2024 12:00am April 26, 2024 5:42pm Start: 06-02-2018 End: 01-21-2024 Ramipril 10 mg capsule Disco ntinued 0 .ROUTE .COMPLEX 180 3 January 23, 2023 3:50pm June 25, 2023 [...] CAPS One tablet by mouth daily RAMIPRIL [id number] Karen Jorgensen PA-C Start: 11-02-2010 take 1 tablet by carlota th twice daily ALTACE 10 MG CAPS One tablet by mouth twice daily RAMIPRIL [id number] Aaron Perez MD Start: 03-05-2005 End: 09-20-2021 [...] days, then one tablet daily RASAGILINE MESYLATE [id number] Karen Jorgensen PA-C rOPINIRole 1 mg oral tablet (20 sources) Nonergot Dopamine Agonist Start: 02-25-2012 End: 06-12-2017 take 1 tablet by mouth three times daily Ropinirole 1 MG tablet Discontinued 1 mg PO THREE TIMES A DAY April 21, 2013 1:00am June 12, 2017 2:30pm Start: 11-02-2010 take 2 tablets by mo [facility] once daily REQUIP 4 MG TABS 2 tablets by mouth daily ROPINIROLE HCL [id number] Kim Graham sertraline 100 mg oral tablet [...] Take 1 tablet by carlota once daily. spironolactone 25 mg oral tablet [...] mouth twice daily X 3 days SULFAMETHOXAZOLE-TRIMETHOPRIM [id number] Karen Jorgensen PA-C Start: 04-17-2013 take 1 tablet by carlota th twice daily BACTRIM DS 800-160 MG TABS One tablet by mouth twice daily SULFAMETHOXAZOLE-TRIMETHOPRIM [id number] Clair Ovalle RN Start: 04-17-2013 End: 10-12-2013 take 1 tablet by mouth twice daily BACTRIM DS 800-160 MG TABS One tablet by mouth twice daily X 3 days SULFAMETHOXAZOLE-TRIMETHOPRIM [id number] Karen Jorgensen PA-C Start: 04-17-2013 take 1 tablet by carlota th twice daily BACTRIM DS 800-160 MG TABS One tablet by mouth twice daily X 3 days SULFAMETHOXAZOLE-TRIMETHOPRIM [id number] Aaron Perez MD vitamin b12 1 mg/ml [...] TABS One tablet by mouth daily CYANOCOBALAMIN [id number] Kim Graham Problems Active Problems Problem Classification Problem Date Documented Date Episodic/Chronic Cardiac dysrhythmias (20 sources) Supraventricular tachycardia; Translations: [Paroxysmal supraventricular tachycardia] Onset: 5 06-07-2014 Chronic Conduction disorders (20 sources) Left bundle branch block; Translations: [Automatic implantable cardiac defibrillator in situ] Onset: 11-02-2010 Chronic Comment on above: 01/16/02, Implantatio n of Dual Chamber Biventricular Defib BONE CHAR OPERATOR-D( normal batter y depletion) changed out for BONE CHAR OPERATOR-P on 12/31/23 @ [facility] Congestive heart failure; nonhypertensive (20 sources) Chronic systolic heart failure; Translations: [Chronic systolic (congestive) heart failure] Onset: 11-02-2010 Chronic Coronary atherosclerosis and other heart disease (20 sources) Atherosclerotic heart disease of [place] coronary artery without angina pectoris; Translations: [Angina pectoris] Onset: 06-27-2016 Chronic Comment on above: S/P CABG in r 1994 with MA to LAD, SVG to diagonal 1, SVG to OM1, SVG to LCx, and SVG to PDA; stenting to left main and LAD in March 2010 Disorders of lipid metabolism (20 sources) Hyperlipidemia; Translations: [Mixed hyperlipidemia] Onset: 11-02-2010 Chronic Essential hypertension (20 sources) Hypertensive disorder; Translations: [Essential hypertension] Onset: 11-02-2010 Chronic Fluid and electrolyte disorders (8 sources) Lactic acidosis; Translations: [Lactic acidosis] 05-08-2024 Episodic Heart valve disorders (20 sources) Mitral valve disorder; Translations: [Mitral valve prolapse] Onset: 2011 Chronic Heart valve disorders (20 sources) Heart murmur; Translations: [Cardiac murmur, unspecified] Onset: 1 11-02-2010 Episodic Other aftercare (8 sources) Patient encounter status; Translations: [Other half-way (current) drug therapy] 07-10-2018 Episodic Other aftercare (8 sources) Long-term current use of drug therapy; Translations: [Other long chain quiller tender (current) drug therapy] 07-10-2018 Episodic Other lower respiratory disease (13 sources) Dyspnea; Translations: [Shortness of breath] 06-24-2023 Episodic Other nervous system disorders (8 sources) Metabolic encephalopathy; Translations: [Metabolic encephalopathy] 05-08-2024 Chronic Other nervous system disorders (7 sources) Chronic pain; Translations: [Other chronic pain] [...] sleep behavior disorder] Chronic Residual codes; unclassified (13 sources) Bilateral lower limb edema; Translations: [Localized edema] 06-24-2023 Episodic Unclassified (6 sources) Implantation of automatic cardiac defibrillator ; Translations: [Presence of automatic (implantable) cardiac defibrillator] Onset: 1 11-02-2010 Unclassified (8 sources) Long-term drug therapy; Translations: [Other half-way (current) drug therapy] Onset: 1 11-02-2010 Viral infection (17 sources) Disease caused by 2019-nCoV; Translations: [COVID-19] Episodic Past or Other Problems Problem Classification Problem Date Documented Da te Episodic/Chronic Abdominal hernia (16 sources) Recurrent inguinal hernia; Translations: [Unilateral inguinal hernia, without obstruction or gangrene, recurrent] Onset: 03-05-2005 03-05-2005 Episodic Acute and unspecified renal failure (9 sources) Acute renal failure syndrome; Translations: [Acute kidney failure, unspecified] Onset: 01-21-2024 01-24-2024 Episodic Bacterial infection; unspecified site (9 sources) Bacteremia caused by Gram-negative bacteria; Translations: [Bacteremia] Onset: 05-15-2024 05-08-2024 Episodic Complications of surgical procedures or medical [...] source) Dysuria; Translations: [Dysuria] Onset: 06-02-2024 Episodic Malaise and fatigue (20 sources) Fatigue; Translations: [Other fatigue] Onset: 10-19-2014 10-19-2014 Episodic Nonspecific chest pain (13 sources) Chest discomfort; Translations: [Other chest pain] Onset: 11-02-2010 11-02-2010 Episodic Other aftercare (5 sources) Other long chain quiller tender (current) drug therapy; Translations: [Other long chain quiller tender (current) drug therapy] Onset: 11-02-2010 11-02-2010 Episodic [...] respiratory failure with hypoxia] Onset: 06-16-2024 Episodic Septicemia (except in labor) (9 sources) Sepsis; Translations: [Sepsis, unspecified organism] Onset: 05-15-2024 05-08-2024 Episodic Syncope (10 sources) Syncope; Translations: [Syncope and collapse] Onset: 01-21-2024 01-24-2024 Episodic Urinary tract infections (20 sources) Urinary tract infection, site not specified; Translations: [Acute urinary tract infection] Onset: 04-17-2013 04-17-2013 Episodic Results Test Name Value Interpretation Reference Range Facility Bilirubin Test strip Ql (U)O rdered By: Adams Ivy on 12-18-2024 Bilirubin Ql (U) Negative Negative [facility] Hyaline casts LM.LPF (Urine sed) [#/Area]Ordered By: Adams Ivy on 12-18-2024 Hyaline casts (Urine sed) [#/Area] 5 /[LPF] 0-5 [facility] Ketones Test strip Ql (U)Ord ered By: Adams Ivy on 12-18-2024 Ketones Ql (U) 5 mg/dl High Negative [facility] Microscopic analysis of urin e for red blood cells (RBC)Ordered By: Adams Ivy on 12-18-2024 Microscopic analysis of urine for red blood cells (RBC) 0 SEEN /hpf 0-5 [facility] Mucus LM Ql (Urine sed)Order ed By: Adams Ivy on 12-18-2024 Mucus Ql (Urine sed) 1+ /hpf [facility] Nitrite Test strip Ql (U)Ord ered By: Adams Ivy on 12-18-2024 Nitrite Ql (U) Negative Negative [facility] Protein Test strip Ql (U)Ord ered By: Adams Ivy on 12-18-2024 Protein Ql (U) 30 mg/dl High Negative [facility] Squamous epithelial cells de tection in urine sediment by light microscopyOrdered By: Adams Ivy on 12-18-2024 Epithelial cells.squamous LM Ql (Urine sed) 0-5 SEEN /hpf 0-5 [facility] Urine clarityOrdered By: Tyson Ivy on 12-18-2024 Clarity (U) Clear Clear [facility] Urine color determinationOrd ered By: Adams Ivy on 12-18-2024 Color (U) Yellow Yellow [facility] Urine cultureOrdered By: Tyson Ivy on 12-18-2024 Bacteria identified Cx Nom (U) Culture exhibits no growth. [facility] Urine glucose detectionOrder ed By: Adams Ivy on 12-18-2024 Glucose Ql (U) Normal mg/dl Normal [facility] Urine leukocyte esterase det ection by dipstickOrdered By: Adams Ivy on 12-18-2024 Leukocyte esterase Test strip Ql (U) Negative Negative [facility] Urine pHOrdered By: Rona Ivy on 12-18-2024 pH (U) 6.5 [pH] 5.0 - 8.0 [facility] Urine sediment bacteria coun t by microscopy (number/high power field)Ordered By: Guerrerodeniz Marinomynor on 12-18-2024 Bacteria LM.HPF (Urine sed) [#/Area] 0 /[HPF] None Seen [facility] Urine specific gravity measu rementOrdered By: Adams Ivy on 12-18-2024 Specific gravity (U) [Rel density] 1.015 1.002-1.030 [facility] Urine urobilinogen measureme ntOrdered By: Guerrerodeniz Marinomynor on 12-18-2024 Urobilinogen Ql (U) 1 mg/dl High Normal [facility] White blood cell countOrdere d By: Adams Nedmynor on 12-18-2024 White blood cell count 0-5 SEEN /hpf 0-5 [facility] CBC W/Diff, Automatedon 12-3 Absolute Neut Normal 2.0-7.7 [facility] Comment on above: Result Comment: Canc elled via OM: Order cancelled - Patient discharged Performed By: #### L 500.4050, L100.0100 #### [facility] [address] [place], [address] HCT Normal 40-54 [facility] Comment on above: Result Comment: Canc elled via OM: Order cancelled - Patient discharged Performed By: #### L 500.4050, L100.0100 #### [facility] [address] [place], [address] HGB Normal 13.0-16.5 [facility] Comment on above: Result Comment: Canc elled via OM: Order cancelled - Patient discharged Performed By: #### L 500.4050, L100.0100 #### [facility] [address] [place], [address] MCH Normal 27.0-32.0 [facility] Comment on above: Result Comment: Canc elled via OM: Order cancelled - Patient discharged Performed By: #### L 500.4050, L100.0100 #### [facility] [address] [place], [address] MCHC Normal 32-36 [facility] Comment on above: Result Comment: Canc elled via OM: Order cancelled - Patient discharged Performed By: #### L 500.4050, L100.0100 #### [facility] [address] [place], [address] MCV Normal 80-94 [facility] Comment on above: Result Comment: Canc elled via OM: Order cancelled - Patient discharged Performed By: #### L 500.4050, L100.0100 #### [facility] [address] [place], [address] NEUT% Normal 47-70 [facility] Comment on above: Result Comment: Canc elled via OM: Order cancelled - Patient discharged Performed By: #### L 500.4050, L100.0100 #### [facility] [address] [place], [address] PLT Normal 150-450 [facility] Comment on above: Result Comment: Canc elled via OM: Order cancelled - Patient discharged Performed By: #### L 500.4050, L100.0100 #### [facility] [address] [place], [address] RBC Normal 4.6-6.2 [facility] Comment on above: Result Comment: Canc elled via OM: Order cancelled - Patient discharged Performed By: #### L 500.4050, L100.0100 #### [facility] [address] [place], [address] RDW CV Normal 11.6-14.6 [facility] Comment on above: Result Comment: Canc elled via OM: Order cancelled - Patient discharged Performed By: #### L 500.4050, L100.0100 #### [facility] [address] [place], [address] RDW SD Normal 35.1-43.9 [facility] Comment on above: Result Comment: Canc elled via OM: Order cancelled - Patient discharged Performed By: #### L 500.4050, L100.0100 #### [facility] [address] [place], [address] WBC Normal 4.4-11.0 [facility] Comment on above: Result Comment: Canc elled via OM: Order cancelled - Patient discharged Performed By: #### L 500.4050, L100.0100 #### [facility] [address] [place], [address] Comprehensive Metabolic Prof ilon 05-05-2024 ALB Normal 3.2-5.0 [facility] Comment on above: Result Comment: Canc elled via OM: Order cancelled - Patient discharged Performed By: #### L 500.4050, L100.0100 #### [facility] [address] [place], [address] ALK P Normal 45-117 [facility] Comment on above: Result Comment: Canc elled via OM: Order cancelled - Patient discharged Performed By: #### L 500.4050, L100.0100 #### [facility] [address] [place], [address] ALT Normal 16-61 [facility] Comment on above: Result Comment: Canc elled via OM: Order cancelled - Patient discharged Performed By: #### L 500.4050, L100.0100 #### [facility] [address] [place], [address] AST Normal 15-37 [facility] Comment on above: Result Comment: Canc elled via OM: Order cancelled - Patient discharged Performed By: #### L 500.4050, L100.0100 #### [facility] [address] [place], [address] BUN Normal 7-18 [facility] Comment on above: Result Comment: Canc elled via OM: Order cancelled - Patient discharged Performed By: #### L 500.4050, L100.0100 #### [facility] [address] [place], [address] BUN/CRE Normal 10-20 [facility] Comment on above: Result Comment: Canc elled via OM: Order cancelled - Patient discharged Performed By: #### L 500.4050, L100.0100 #### [facility] [address] [place], [address] CA,Total Normal 8.5-10.1 [facility] Comment on above: Result Comment: Canc elled via OM: Order cancelled - Patient discharged Performed By: #### L 500.4050, L100.0100 #### [facility] [address] [place], [address] CL Normal 98-107 [facility] Comment on above: Result Comment: Canc elled via OM: Order cancelled - Patient discharged Performed By: #### L 500.4050, L100.0100 #### [facility] [address] [place], [address] CO2 Normal 21.0-32.0 [facility] Comment on above: Result Comment: Canc elled via OM: Order cancelled - Patient discharged Performed By: #### L 500.4050, L100.0100 #### [facility] [address] [place], [address] CREAT,SERUM Normal 0.70-1.30 [facility] Comment on above: Result Comment: Canc elled via OM: Order cancelled - Patient discharged Performed By: #### L 500.4050, L100.0100 #### [facility] [address] [place], [address] EST GFR Normal >60 [facility] Comment on above: Result Comment: Canc elled via OM: Order cancelled - Patient discharged Performed By: #### L 500.4050, L100.0100 #### [facility] [address] [place], [address] EST GFR - AA Normal >60 [facility] Comment on above: Result Comment: Canc elled via OM: Order cancelled - Patient discharged Performed By: #### L 500.4050, L100.0100 #### [facility] [address] [place], [address] GAP Normal 5-15 [facility] Comment on above: Result Comment: Canc elled via OM: Order cancelled - Patient discharged Performed By: #### L 500.4050, L100.0100 #### [facility] [address] [place], [address] GLU Normal 74-106 [facility] Comment on above: Result Comment: Canc elled via OM: Order cancelled - Patient discharged Performed By: #### L 500.4050, L100.0100 #### [facility] [address] [place], [address] Potassium Normal 3.5-5.1 [facility] Comment on above: Result Comment: Canc elled via OM: Order cancelled - Patient discharged Performed By: #### L 500.4050, L100.0100 #### [facility] [address] [place], [address] T BILI Normal 0.20-1.00 [facility] Comment on above: Result Comment: Canc elled via OM: Order cancelled - Patient discharged Performed By: #### L 500.4050, L100.0100 #### [facility] [address] [place], [address] T PROT Normal 6.4-8.2 [facility] Comment on above: Result Comment: Canc elled via OM: Order cancelled - Patient discharged Performed By: #### L 500.4050, L100.0100 #### [facility] [address] [place], [address] Comprehensive Metabolic Profil Normal 136-145 [facility] Comment on above: Result Comment: Canc elled via OM: Order cancelled - Patient discharged Performed By: #### L 500.4050, L100.0100 #### [facility] [address] [place], [address] CBC W/Diff, Automatedon 12-3 0-2023 Absolute Neut Normal 2.0-7.7 [facility] Comment on above: Result Comment: Canc elled via OM: Order cancelled - Patient discharged Performed By: #### L 500.4050, L100.0100 ####[facility] [address] [place], [address] HCT Normal 40-54 [facility] Comment on above: Result Comment: Canc elled via OM: Order cancelled - Patient discharged Performed By: #### L 500.4050, L100.0100 ####[facility] [address] [place], [address] HGB Normal 13.0-16.5 [facility] Comment on above: Result Comment: Canc elled via OM: Order cancelled - Patient discharged Performed By: #### L 500.4050, L100.0100 ####[facility] [address] [place], [address] MCH Normal 27.0-32.0 [facility] Comment on above: Result Comment: Canc elled via OM: Order cancelled - Patient discharged Performed By: #### L 500.4050, L100.0100 ####[facility] [address] [place], [address] MCHC Normal 32-36 [facility] Comment on above: Result Comment: Canc elled via OM: Order cancelled - Patient discharged Performed By: #### L 500.4050, L100.0100 ####[facility] [address] [place], [address] MCV Normal 80-94 [facility] Comment on above: Result Comment: Canc elled via OM: Order cancelled - Patient discharged Performed By: #### L 500.4050, L100.0100 ####[facility] [address] [place], [address] NEUT% Normal 47-70 [facility] Comment on above: Result Comment: Canc elled via OM: Order cancelled - Patient discharged Performed By: #### L 500.4050, L100.0100 ####[facility] [address] [place], [address] PLT Normal 150-450 [facility] Comment on above: Result Comment: Canc elled via OM: Order cancelled - Patient discharged Performed By: #### L 500.4050, L100.0100 ####[facility] [address] [place], [address] RBC Normal 4.6-6.2 [facility] Comment on above: Result Comment: Canc elled via OM: Order cancelled - Patient discharged Performed By: #### L 500.4050, L100.0100 ####[facility] [address] [place], [address] RDW CV Normal 11.6-14.6 [facility] Comment on above: Result Comment: Canc elled via OM: Order cancelled - Patient discharged Performed By: #### L 500.4050, L100.0100 ####[facility] [address] [place], [address] RDW SD Normal 35.1-43.9 [facility] Comment on above: Result Comment: Canc elled via OM: Order cancelled - Patient discharged Performed By: #### L 500.4050, L100.0100 ####[facility] [address] [place], [address] WBC Normal 4.4-11.0 [facility] Comment on above: Result Comment: Canc elled via OM: Order cancelled - Patient discharged Performed By: #### L 500.4050, L100.0100 ####[facility] [address] [place], [address] Comprehensive Metabolic Prof ilon 05-04-2024 ALB Normal 3.2-5.0 [facility] Comment on above: Result Comment: Canc elled via OM: Order cancelled - Patient discharged Performed By: #### L 500.4050, L100.0100 ####[facility] [address] [place], [address] ALK P Normal 45-117 [facility] Comment on above: Result Comment: Canc elled via OM: Order cancelled - Patient discharged Performed By: #### L 500.4050, L100.0100 ####[facility] [address] [place], [address] ALT Normal 16-61 [facility] Comment on above: Result Comment: Canc elled via OM: Order cancelled - Patient discharged Performed By: #### L 500.4050, L100.0100 ####[facility] [address] [place], [address] AST Normal 15-37 [facility] Comment on above: Result Comment: Canc elled via OM: Order cancelled - Patient discharged Performed By: #### L 500.4050, L100.0100 ####[facility] [address] [place], [address] BUN Normal 7-18 [facility] Comment on above: Result Comment: Canc elled via OM: Order cancelled - Patient discharged Performed By: #### L 500.4050, L100.0100 ####[facility] [address] [place], [address] BUN/CRE Normal 10-20 [facility] Comment on above: Result Comment: Canc elled via OM: Order cancelled - Patient discharged Performed By: #### L 500.4050, L100.0100 ####[facility] [address] [place], [address] CA,Total Normal 8.5-10.1 [facility] Comment on above: Result Comment: Canc elled via OM: Order cancelled - Patient discharged Performed By: #### L 500.4050, L100.0100 ####[facility] [address] [place], [address] CL Normal 98-107 [facility] Comment on above: Result Comment: Canc elled via OM: Order cancelled - Patient discharged Performed By: #### L 500.4050, L100.0100 ####[facility] [address] [place], [address] CO2 Normal 21.0-32.0 [facility] Comment on above: Result Comment: Canc elled via OM: Order cancelled - Patient discharged Performed By: #### L 500.4050, L100.0100 ####[facility] [address] [place], [address] CREAT,SERUM Normal 0.70-1.30 [facility] Comment on above: Result Comment: Canc elled via OM: Order cancelled - Patient discharged Performed By: #### L 500.4050, L100.0100 ####[facility] [address] [place], [address] EST GFR Normal >60 [facility] Comment on above: Result Comment: Canc elled via OM: Order cancelled - Patient discharged Performed By: #### L 500.4050, L100.0100 ####[facility] [address] [place], [address] EST GFR - AA Normal >60 [facility] Comment on above: Result Comment: Canc elled via OM: Order cancelled - Patient discharged Performed By: #### L 500.4050, L100.0100 ####[facility] [address] [place], [address] GAP Normal 5-15 [facility] Comment on above: Result Comment: Canc elled via OM: Order cancelled - Patient discharged Performed By: #### L 500.4050, L100.0100 ####[facility] [address] [place], [address] GLU Normal 74-106 [facility] Comment on above: Result Comment: Canc elled via OM: Order cancelled - Patient discharged Performed By: #### L 500.4050, L100.0100 ####[facility] [address] [place], [address] Potassium Normal 3.5-5.1 [facility] Comment on above: Result Comment: Canc elled via OM: Order cancelled - Patient discharged Performed By: #### L 500.4050, L100.0100 ####[facility] [address] [place], [address] T BILI Normal 0.20-1.00 [facility] Comment on above: Result Comment: Canc elled via OM: Order cancelled - Patient discharged Performed By: #### L 500.4050, L100.0100 ####[facility] [address] [place], [address] T PROT Normal 6.4-8.2 [facility] Comment on above: Result Comment: Canc elled via OM: Order cancelled - Patient discharged Performed By: #### L 500.4050, L100.0100 ####[facility] [address] [place], [address] Comprehensive Metabolic Profil Normal 136-145 [facility] Comment on above: Result Comment: Canc elled via OM: Order cancelled - Patient discharged Performed By: #### L 500.4050, L100.0100 ####[facility] [address] [place], [address] CBC W/Diff, Automatedon 12-2 Absolute Neut Normal 2.0-7.7 [facility] Comment on above: Result Comment: Canc elled via OM: Order cancelled - Patient discharged Performed By: #### L 100.0100, L500.4050 #### [facility] [address] [place], [address] HCT Normal 40-54 [facility] Comment on above: Result Comment: Canc elled via OM: Order cancelled - Patient discharged Performed By: #### L 100.0100, L500.4050 #### [facility] [address] [place], [address] HGB Normal 13.0-16.5 [facility] Comment on above: Result Comment: Canc elled via OM: Order cancelled - Patient discharged Performed By: #### L 100.0100, L500.4050 #### [facility] [address] [place], [address] MCH Normal 27.0-32.0 [facility] Comment on above: Result Comment: Canc elled via OM: Order cancelled - Patient discharged Performed By: #### L 100.0100, L500.4050 #### [facility] [address] [place], [address] MCHC Normal 32-36 [facility] Comment on above: Result Comment: Canc elled via OM: Order cancelled - Patient discharged Performed By: #### L 100.0100, L500.4050 #### [facility] [address] [place], [address] MCV Normal 80-94 [facility] Comment on above: Result Comment: Canc elled via OM: Order cancelled - Patient discharged Performed By: #### L 100.0100, L500.4050 #### [facility] [address] [place], [address] NEUT% Normal 47-70 [facility] Comment on above: Result Comment: Canc elled via OM: Order cancelled - Patient discharged Performed By: #### L 100.0100, L500.4050 #### [facility] [address] [place], [address] PLT Normal 150-450 [facility] Comment on above: Result Comment: Canc elled via OM: Order cancelled - Patient discharged Performed By: #### L 100.0100, L500.4050 #### [facility] [address] [place], [address] RBC Normal 4.6-6.2 [facility] Comment on above: Result Comment: Canc elled via OM: Order cancelled - Patient discharged Performed By: #### L 100.0100, L500.4050 #### [facility] [address] [place], [address] RDW CV Normal 11.6-14.6 [facility] Comment on above: Result Comment: Canc elled via OM: Order cancelled - Patient discharged Performed By: #### L 100.0100, L500.4050 #### [facility] [address] [place], [address] RDW SD Normal 35.1-43.9 [facility] Comment on above: Result Comment: Canc elled via OM: Order cancelled - Patient discharged Performed By: #### L 100.0100, L500.4050 #### [facility] [address] [place], [address] WBC Normal 4.4-11.0 [facility] Comment on above: Result Comment: Canc elled via OM: Order cancelled - Patient discharged Performed By: #### L 100.0100, L500.4050 #### [facility] [address] [place], [address] Comprehensive Metabolic Prof ammy 05-03-2024 ALB Normal 3.2-5.0 [facility] Comment on above: Result Comment: Canc elled via OM: Order cancelled - Patient discharged Performed By: #### L 500.4050, L100.0100 #### [facility] [address] [place], [address] ALK P Normal 45-117 [facility] Comment on above: Result Comment: Canc elled via OM: Order cancelled - Patient discharged Performed By: #### L 500.4050, L100.0100 #### [facility] [address] [place], [address] ALT Normal 16-61 [facility] Comment on above: Result Comment: Canc elled via OM: Order cancelled - Patient discharged Performed By: #### L 500.4050, L100.0100 #### [facility] [address] [place], [address] AST Normal 15-37 [facility] Comment on above: Result Comment: Canc elled via OM: Order cancelled - Patient discharged Performed By: #### L 500.4050, L100.0100 #### [facility] [address] [place], [address] BUN Normal 7-18 [facility] Comment on above: Result Comment: Canc elled via OM: Order cancelled - Patient discharged Performed By: #### L 500.4050, L100.0100 #### [facility] [address] [place], [address] BUN/CRE Normal 10-20 [facility] Comment on above: Result Comment: Canc elled via OM: Order cancelled - Patient discharged Performed By: #### L 500.4050, L100.0100 #### [facility] [address] [place], [address] CA,Total Normal 8.5-10.1 [facility] Comment on above: Result Comment: Canc elled via OM: Order cancelled - Patient discharged Performed By: #### L 500.4050, L100.0100 #### [facility] [address] [place], [address] CL Normal 98-107 [facility] Comment on above: Result Comment: Canc elled via OM: Order cancelled - Patient discharged Performed By: #### L 500.4050, L100.0100 #### [facility] [address] [place], [address] CO2 Normal 21.0-32.0 [facility] Comment on above: Result Comment: Canc elled via OM: Order cancelled - Patient discharged Performed By: #### L 500.4050, L100.0100 #### [facility] [address] [place], [address] CREAT,SERUM Normal 0.70-1.30 [facility] Comment on above: Result Comment: Canc elled via OM: Order cancelled - Patient discharged Performed By: #### L 500.4050, L100.0100 #### [facility] [address] [place], [address] EST GFR Normal >60 [facility] Comment on above: Result Comment: Canc elled via OM: Order cancelled - Patient discharged Performed By: #### L 500.4050, L100.0100 #### [facility] [address] [place], [address] EST GFR - AA Normal >60 [facility] Comment on above: Result Comment: Canc elled via OM: Order cancelled - Patient discharged Performed By: #### L 500.4050, L100.0100 #### [facility] [address] [place], [address] GAP Normal 5-15 [facility] Comment on above: Result Comment: Canc elled via OM: Order cancelled - Patient discharged Performed By: #### L 500.4050, L100.0100 #### [facility] [address] [place], [address] GLU Normal 74-106 [facility] Comment on above: Result Comment: Canc elled via OM: Order cancelled - Patient discharged Performed By: #### L 500.4050, L100.0100 #### [facility] [address] [place], [address] Potassium Normal 3.5-5.1 [facility] Comment on above: Result Comment: Canc elled via OM: Order cancelled - Patient discharged Performed By: #### L 500.4050, L100.0100 #### [facility] [address] [place], [address] T BILI Normal 0.20-1.00 [facility] Comment on above: Result Comment: Canc elled via OM: Order cancelled - Patient discharged Performed By: #### L 500.4050, L100.0100 #### [facility] [address] [place], [address] T PROT Normal 6.4-8.2 [facility] Comment on above: Result Comment: Canc elled via OM: Order cancelled - Patient discharged Performed By: #### L 500.4050, L100.0100 #### [facility] [address] [place], [address] Comprehensive Metabolic Profil Normal 136-145 [facility] Comment on above: Result Comment: Canc elled via OM: Order cancelled - Patient discharged Performed By: #### L 500.4050, L100.0100 #### [facility] [address] [place], [address] CBC W/Diff, Automatedon 12-2 Absolute Neut Normal 2.0-7.7 [facility] Comment on above: Result Comment: Canc elled via OM: Order cancelled - Patient discharged Performed By: #### L 100.0100, L500.4050 #### [facility] [address] [place], [address] HCT Normal 40-54 [facility] Comment on above: Result Comment: Canc elled via OM: Order cancelled - Patient discharged Performed By: #### L 100.0100, L500.4050 #### [facility] [address] [place], [address] HGB Normal 13.0-16.5 [facility] Comment on above: Result Comment: Canc elled via OM: Order cancelled - Patient discharged Performed By: #### L 100.0100, L500.4050 #### [facility] [address] [place], [address] MCH Normal 27.0-32.0 [facility] Comment on above: Result Comment: Canc elled via OM: Order cancelled - Patient discharged Performed By: #### L 100.0100, L500.4050 #### [facility] [address] [place], [address] MCHC Normal 32-36 [facility] Comment on above: Result Comment: Canc elled via OM: Order cancelled - Patient discharged Performed By: #### L 100.0100, L500.4050 #### [facility] [address] [place], [address] MCV Normal 80-94 [facility] Comment on above: Result Comment: Canc elled via OM: Order cancelled - Patient discharged Performed By: #### L 100.0100, L500.4050 #### [facility] [address] [place], [address] NEUT% Normal 47-70 [facility] Comment on above: Result Comment: Canc elled via OM: Order cancelled - Patient discharged Performed By: #### L 100.0100, L500.4050 #### [facility] [address] [place], [address] PLT Normal 150-450 [facility] Comment on above: Result Comment: Canc elled via OM: Order cancelled - Patient discharged Performed By: #### L 100.0100, L500.4050 #### [facility] [address] [place], [address] RBC Normal 4.6-6.2 [facility] Comment on above: Result Comment: Canc elled via OM: Order cancelled - Patient discharged Performed By: #### L 100.0100, L500.4050 #### [facility] [address] [place], [address] RDW CV Normal 11.6-14.6 [facility] Comment on above: Result Comment: Canc elled via OM: Order cancelled - Patient discharged Performed By: #### L 100.0100, L500.4050 #### [facility] [address] [place], [address] RDW SD Normal 35.1-43.9 [facility] Comment on above: Result Comment: Canc elled via OM: Order cancelled - Patient discharged Performed By: #### L 100.0100, L500.4050 #### [facility] [address] [place], [address] WBC Normal 4.4-11.0 [facility] Comment on above: Result Comment: Canc elled via OM: Order cancelled - Patient discharged Performed By: #### L 100.0100, L500.4050 #### [facility] [address] [place], [address] Comprehensive Metabolic Prof ammy 05-02-2024 ALB Normal 3.2-5.0 [facility] [facility] Comment on above: Result Comment: Canc elled via OM: Order cancelled - Patient discharged Performed By: #### L 100.0100, L500.4050 #### [facility] [address] [place], [address] ALK P Normal 45-117 [facility] Comment on above: Result Comment: Canc elled via OM: Order cancelled - Patient discharged Performed By: #### L 100.0100, L500.4050 #### [facility] [address] [place], [address] ALT Normal 16-61 [facility] Comment on above: Result Comment: Canc elled via OM: Order cancelled - Patient discharged Performed By: #### L 100.0100, L500.4050 #### [facility] [address] [place], [address] AST Normal 15-37 [facility] Comment on above: Result Comment: Canc elled via OM: Order cancelled - Patient discharged Performed By: #### L 100.0100, L500.4050 #### [facility] [address] [place], [address] BUN Normal 7-18 [facility] Comment on above: Result Comment: Canc elled via OM: Order cancelled - Patient discharged Performed By: #### L 100.0100, L500.4050 #### [facility] [address] [place], [address] BUN/CRE Normal 10-20 [facility] Comment on above: Result Comment: Canc elled via OM: Order cancelled - Patient discharged Performed By: #### L 100.0100, L500.4050 #### [facility] [address] [place], [address] CA,Total Normal 8.5-10.1 [facility] Comment on above: Result Comment: Canc elled via OM: Order cancelled - Patient discharged Performed By: #### L 100.0100, L500.4050 #### [facility] [address] [place], [address] CL Normal 98-107 [facility] Comment on above: Result Comment: Canc elled via OM: Order cancelled - Patient discharged Performed By: #### L 100.0100, L500.4050 #### [facility] [address] [place], [address] CO2 Normal 21.0-32.0 [facility] Comment on above: Result Comment: Canc elled via OM: Order cancelled - Patient discharged Performed By: #### L 100.0100, L500.4050 #### [facility] [address] [place], [address] CREAT,SERUM Normal 0.70-1.30 [facility] Comment on above: Result Comment: Canc elled via OM: Order cancelled - Patient discharged Performed By: #### L 100.0100, L500.4050 #### [facility] [address] [place], [address] EST GFR Normal >60 [facility] Comment on above: Result Comment: Canc elled via OM: Order cancelled - Patient discharged Performed By: #### L 100.0100, L500.4050 #### [facility] [address] [place], [address] EST GFR - AA Normal >60 [facility] Comment on above: Result Comment: Canc elled via OM: Order cancelled - Patient discharged Performed By: #### L 100.0100, L500.4050 #### [facility] [address] [place], [address] GAP Normal 5-15 [facility] Comment on above: Result Comment: Canc elled via OM: Order cancelled - Patient discharged Performed By: #### L 100.0100, L500.4050 #### [facility] [address] [place], [address] GLU Normal 74-106 [facility] Comment on above: Result Comment: Canc elled via OM: Order cancelled - Patient discharged Performed By: #### L 100.0100, L500.4050 #### [facility] [address] [place], [address] Potassium Normal 3.5-5.1 [facility] Comment on above: Result Comment: Canc elled via OM: Order cancelled - Patient discharged Performed By: #### L 100.0100, L500.4050 #### [facility] [address] [place], [address] T BILI Normal 0.20-1.00 [facility] Comment on above: Result Comment: Canc elled via OM: Order cancelled - Patient discharged Performed By: #### L 100.0100, L500.4050 #### [facility] [address] [place], [address] T PROT Normal 6.4-8.2 [facility] Comment on above: Result Comment: Canc elled via OM: Order cancelled - Patient discharged Performed By: #### L 100.0100, L500.4050 #### [facility] [address] [place], [address] Comprehensive Metabolic Profil Normal 136-145 [facility] Comment on above: Result Comment: Canc elled via OM: Order cancelled - Patient discharged Performed By: #### L 100.0100, L500.4050 #### [facility] [address] [place], [address] CBC W/Diff, Automatedon 12-2 Absolute Neut Normal 2.0-7.7 [facility] Comment on above: Result Comment: Canc elled via OM: Order cancelled - Patient discharged Performed By: #### L 400.0001 #### [facility] [address] [place], [address] HCT Normal 40-54 [facility] Comment on above: Result Comment: Canc elled via OM: Order cancelled - Patient discharged Performed By: #### L 400.0001 #### [facility] [address] [place], [address] HGB Normal 13.0-16.5 [facility] Comment on above: Result Comment: Canc elled via OM: Order cancelled - Patient discharged Performed By: #### L 400.0001 #### [facility] [address] [place], [address] MCH Normal 27.0-32.0 [facility] Comment on above: Result Comment: Canc elled via OM: Order cancelled - Patient discharged Performed By: #### L 400.0001 #### [facility] [address] [place], [address] MCHC Normal 32-36 [facility] Comment on above: Result Comment: Canc elled via OM: Order cancelled - Patient discharged Performed By: #### L 400.0001 #### [facility] [address] [place], [address] MCV Normal 80-94 [facility] Comment on above: Result Comment: Canc elled via OM: Order cancelled - Patient discharged Performed By: #### L 400.0001 #### [facility] [address] [place], [address] NEUT% Normal 47-70 [facility] Comment on above: Result Comment: Canc elled via OM: Order cancelled - Patient discharged Performed By: #### L 400.0001 #### [facility] [address] [place], [address] PLT Normal 150-450 [facility] Comment on above: Result Comment: Canc elled via OM: Order cancelled - Patient discharged Performed By: #### L 400.0001 #### [facility] [address] [place], [address] RBC Normal 4.6-6.2 [facility] Comment on above: Result Comment: Canc elled via OM: Order cancelled - Patient discharged Performed By: #### L 400.0001 #### [facility] [address] [place], [address] RDW CV Normal 11.6-14.6 [facility] Comment on above: Result Comment: Canc elled via OM: Order cancelled - Patient discharged Performed By: #### L 400.0001 #### [facility] [address] [place], [address] RDW SD Normal 35.1-43.9 [facility] Comment on above: Result Comment: Canc elled via OM: Order cancelled - Patient discharged Performed By: #### L 400.0001 #### [facility] [address] [place], [address] WBC Normal 4.4-11.0 [facility] Comment on above: Result Comment: Canc elled via OM: Order cancelled - Patient discharged Performed By: #### L 400.0001 #### [facility] [address] [place], [address] Comprehensive Metabolic Prof ilon 05-01-2024 ALB Normal 3.2-5.0 [facility] Comment on above: Result Comment: Canc elled via OM: Order cancelled - Patient discharged Performed By: #### L 400.0001 #### [facility] [address] [place], [address] ALK P Normal 45-117 [facility] Comment on above: Result Comment: Canc elled via OM: Order cancelled - Patient discharged Performed By: #### L 400.0001 #### [facility] [address] [place], [address] ALT Normal 16-61 [facility] Comment on above: Result Comment: Canc elled via OM: Order cancelled - Patient discharged Performed By: #### L 400.0001 #### [facility] [address] [place], [address] AST Normal 15-37 [facility] Comment on above: Result Comment: Canc elled via OM: Order cancelled - Patient discharged Performed By: #### L 400.0001 #### [facility] [address] [place], [address] BUN Normal 7-18 [facility] Comment on above: Result Comment: Canc elled via OM: Order cancelled - Patient discharged Performed By: #### L 400.0001 #### [facility] [address] [place], [address] BUN/CRE Normal 10-20 [facility] Comment on above: Result Comment: Canc elled via OM: Order cancelled - Patient discharged Performed By: #### L 400.0001 #### [facility] [address] [place], [address] CA,Total Normal 8.5-10.1 [facility] Comment on above: Result Comment: Canc elled via OM: Order cancelled - Patient discharged Performed By: #### L 400.0001 #### [facility] [address] [place], [address] CL Normal 98-107 [facility] Comment on above: Result Comment: Canc elled via OM: Order cancelled - Patient discharged Performed By: #### L 400.0001 #### [facility] [address] [place], [address] CO2 Normal 21.0-32.0 [facility] Comment on above: Result Comment: Canc elled via OM: Order cancelled - Patient discharged Performed By: #### L 400.0001 #### [facility] [address] [place], [address] CREAT,SERUM Normal 0.70-1.30 [facility] Comment on above: Result Comment: Canc elled via OM: Order cancelled - Patient discharged Performed By: #### L 400.0001 #### [facility] [address] [place], [address] EST GFR Normal >60 [facility] Comment on above: Result Comment: Canc elled via OM: Order cancelled - Patient discharged Performed By: #### L 400.0001 #### [facility] [address] [place], [address] EST GFR - AA Normal >60 [facility] Comment on above: Result Comment: Canc elled via OM: Order cancelled - Patient discharged Performed By: #### L 400.0001 #### [facility] [address] [place], [address] GAP Normal 5-15 [facility] Comment on above: Result Comment: Canc elled via OM: Order cancelled - Patient discharged Performed By: #### L 400.0001 #### [facility] [address] [place], [address] GLU Normal 74-106 [facility] Comment on above: Result Comment: Canc elled via OM: Order cancelled - Patient discharged Performed By: #### L 400.0001 #### [facility] [address] [place], [address] Potassium Normal 3.5-5.1 [facility] Comment on above: Result Comment: Canc elled via OM: Order cancelled - Patient discharged Performed By: #### L 400.0001 #### [facility] [address] [place], [address] T BILI Normal 0.20-1.00 [facility] Comment on above: Result Comment: Canc elled via OM: Order cancelled - Patient discharged Performed By: #### L 400.0001 #### [facility] [address] [place], [address] T PROT Normal 6.4-8.2 [facility] Comment on above: Result Comment: Canc elled via OM: Order cancelled - Patient discharged Performed By: #### L 400.0001 #### [facility] [address] [place], [address] Comprehensive Metabolic Profil Normal 136-145 [facility] Comment on above: Result Comment: Canc elled via OM: Order cancelled - Patient discharged Performed By: #### L 400.0001 #### [facility] [address] [place], [address] CBC W/Diff, Automatedon 12-2 6-2023 Absolute Lymph 0.83 X10 3/uL Normal 0.83-4.51 [facility] Comment on above: Performed By: #### L 400.0001 #### [facility] [address] [place], [address] Absolute Neut 3.6 X10 3/uL Normal 2.0-7.7 [facility] Comment on above: Performed By: #### L 400.0001 #### [facility] [address] [place], [address] Basophils/100 WBC (Bld) 0.6 % Normal 0-1 [facility] Comment on above: Performed By: #### L 400.0001 #### [facility] [address] [place], [address] Eosinophils/100 WBC (Bld) 3.7 % Normal 0-5 [facility] Comment on above: Performed By: #### L 400.0001 #### [facility] [address] [place], [address] Erythrocyte distribution width (RBC) [Ratio] 13.6 % Normal 11.6-14.6 [facility] Comment on above: Performed By: #### L 400.0001 #### [facility] [address] [place], [address] Hematocrit (Bld) [Volume fraction] 33.2 % Low 40-54 [facility] Comment on above: Performed By: #### L 400.0001 #### [facility] [address] [place], [address] Hemoglobin (Bld) [Mass/Vol] 10.8 g/dL Low 13.0-16.5 [facility] Comment on above: Performed By: #### L 400.0001 #### [facility] [address] [place], [address] IG% 0.800 Normal 0.0-0.9 [facility] Comment on above: Result Comment: IG% - Immature Granulocytes (promyelocytes, myelocytes and metamyelocytes) > 1% indicates that a LEFT SHIFT is Present. Performed By: #### L 400.0001 #### [facility] [address] [place], [address] Lymphocytes/100 WBC (Bld) 16.2 % Low 19-41 [facility] Comment on above: Performed By: #### L 400.0001 #### [facility] [address] [place], [address] MCH (RBC) [Entitic mass] 31.6 pg Normal 27.0-32.0 [facility] Comment on above: Performed By: #### L 400.0001 #### [facility] [address] [place], [address] MCHC (RBC) [Mass/Vol] 32.5 g/dL Normal 32-36 [facility] Comment on above: Performed By: #### L 400.0001 #### [facility] [address] [place], [address] MCV (RBC) [Entitic vol] 97.1 fL High 80-94 [facility] Comment on above: Performed By: #### L 400.0001 #### [facility] [address] [place], [address] Monocytes/100 WBC (Bld) 9.0 % Normal 0-10 [facility] Comment on above: Performed By: #### L 400.0001 #### [facility] [address] [place], [address] Neutrophils/100 WBC (Bld) 69.7 % Normal 47-70 [facility] Comment on above: Performed By: #### L 400.0001 #### [facility] [address] [place], [address] Nucleated RBC (Bld) [#/Vol] 0 10*3/uL Normal 0-5 [facility] Comment on above: Performed By: #### L 400.0001 #### [facility] [address] [place], [address] Platelet mean volume (Bld) [Entitic vol] 9.4 fL Normal 6.2-12.0 [facility] Comment on above: Performed By: #### L 400.0001 #### [facility] [address] [place], [address] Platelets (Bld) [#/Vol] 146 10*3/uL Low 150-450 [facility] Comment on above: Performed By: #### L 400.0001 #### [facility] [address] [place], [address] RBC (Bld) [#/Vol] 3.42 10*6/uL Low 4.6-6.2 [facility] Comment on above: Performed By: #### L 400.0001 #### [facility] [address] [place], [address] RDW SD 48.3 fl High 35.1-43.9 [facility] Comment on above: Performed By: #### L 400.0001 #### [facility] [address] [place], [address] WBC (Bld) [#/Vol] 5.1 10*3/uL Normal 4.4-11.0 [facility] Comment on above: Performed By: #### L 400.0001 #### [facility] [address] [place], [address] Comprehensive Metabolic Prof ilon 04-30-2024 Albumin [Mass/Vol] 2.4 g/dL Low 3.2-5.0 [facility] Comment on above: Performed By: #### L 400.0001 #### [facility] [address] [place], [address] Albumin/Globulin [Mass ratio] 0.8 {ratio} Low 0.9-2.4 [facility] Comment on above: Performed By: #### L 400.0001 #### [facility] [address] [place], [address] ALK P 129 U/L High 45-117 [facility] Comment on above: Performed By: #### L 400.0001 #### [facility] [address] [place], [address] ALT [Catalytic activity/Vol] 16 U/L Normal 16-61 [facility] Comment on above: Performed By: #### L 400.0001 #### [facility] [address] [place], [address] AST [Catalytic activity/Vol] 29 U/L Normal 15-37 [facility] Comment on above: Performed By: #### L 400.0001 #### [facility] [address] [place], [address] Bilirubin [Mass/Vol] 0.50 mg/dL Normal 0.20-1.00 [facility] Comment on above: Result Comment: For patients on eltrombopag therapy, use of Dimension [place] TBIL is not recommended. Performed By: #### L 400.0001 #### [facility] [address] [place], [address] BUN/CRE 15.9 RATIO Normal 10-20 [facility] Comment on above: Performed By: #### L 400.0001 #### [facility] [address] [place], [address] CA,Total 8.7 mg/dL Normal 8.5-10.1 [facility] Comment on above: Performed By: #### L 400.0001 #### [facility] [address] [place], [address] Chloride [Moles/Vol] 109 mmol/L High 98-107 [facility] Comment on above: Performed By: #### L 400.0001 #### [facility] [address] [place], [address] CO2 [Moles/Vol] 26.0 mmol/L Normal 21.0-32.0 [facility] Comment on above: Performed By: #### L 400.0001 #### [facility] [address] [place], [address] Creatinine [Mass/Vol] 0.82 mg/dL Normal 0.70-1.30 [facility] Comment on above: Result Comment: The validity of the calculated GFR GFRAA in patients over 70 years has not been determined. Clinical correlation is essential. Performed By: #### L 400.0001 #### [facility] [address] [place], [address] ECRCL 70.02 ml/min Normal [facility] Comment on above: Performed By: #### L 400.0001 #### [facility] [address] [place], [address] EST GFR - AA 116 mL/min Normal >60 [facility] Comment on above: Result Comment: Afri can Eritrean GFR Calc Performed By: #### L 400.0001 #### [facility] [address] [place], [address] GAP 5 Normal 5-15 [facility] Comment on above: Performed By: #### L 400.0001 #### [facility] [address] [place], [address] GFR/1.73 sq M.predicted among non-blacks MDRD (S/P/Bld) [Vol rate/Area] 96 mL/min/{1.73_m2} Normal >60 [facility] Comment on above: Result Comment: Non- GFR Calc Performed By: #### L 400.0001 #### [facility] [address] [place], [address] Globulin (S) [Mass/Vol] 3.1 g/dL Normal 2.2-4.2 [facility] Comment on above: Performed By: #### L 400.0001 #### [facility] [address] [place], [address] Glucose [Mass/Vol] 111 mg/dL High 74-106 [facility] Comment on above: Result Comment: Fast ing Glucose result from 100 to 125 mg/dL suggests IMPAIRED HOMEOSTASIS per A.D.A. criteria. Performed By: #### L 400.0001 #### [facility] [address] [place], [address] Potassium [Moles/Vol] 3.9 mmol/L Normal 3.5-5.1 [facility] Comment on above: Performed By: #### L 400.0001 #### [facility] [address] [place], [address] Sodium [Moles/Vol] 140 mmol/L Normal 136-145 [facility] Comment on above: Performed By: #### L 400.0001 #### [facility] [address] [place], [address] T PROT 5.5 g/dL Low 6.4-8.2 [facility] Comment on above: Performed By: #### L 400.0001 #### [facility] [address] [place], [address] Urea nitrogen [Mass/Vol] 13 mg/dL Normal 7-18 [facility] Comment on above: Performed By: #### L 400.0001 #### [facility] [address] [place], [address] CBC W/Diff, Automatedon 12-2 -2023 Absolute Lymph 0.98 X10 3/uL Normal 0.83-4.51 [facility] Comment on above: Performed By: #### L 100.0100, L500.4050 #### [facility] [address] [place], [address] Absolute Neut 6.0 X10 3/uL Normal 2.0-7.7 [facility] Comment on above: Performed By: #### L 100.0100, L500.4050 #### [facility] [address] [place], [address] Basophils/100 WBC (Bld) 0.4 % Normal 0-1 [facility] Comment on above: Performed By: #### L 100.0100, L500.4050 #### [facility] [address] [place], [address] Eosinophils/100 WBC (Bld) 1.5 % Normal 0-5 [facility] Comment on above: Performed By: #### L 100.0100, L500.4050 #### [facility] [address] [place], [address] Erythrocyte distribution width (RBC) [Ratio] 13.7 % Normal 11.6-14.6 [facility] Comment on above: Performed By: #### L 100.0100, L500.4050 #### [facility] [address] [place], [address] Hematocrit (Bld) [Volume fraction] 34.4 % Low 40-54 [facility] Comment on above: Performed By: #### L 100.0100, L500.4050 #### [facility] [address] [place], [address] Hemoglobin (Bld) [Mass/Vol] 11.2 g/dL Low 13.0-16.5 [facility] Comment on above: Performed By: #### L 100.0100, L500.4050 #### [facility] [address] [place], [address] IG% 0.800 Normal 0.0-0.9 [facility] Comment on above: Result Comment: IG% - Immature Granulocytes (promyelocytes, myelocytes and metamyelocytes) > 1% indicates that a LEFT SHIFT is Present. Performed By: #### L 100.0100, L500.4050 #### [facility] [address] [place], [address] Lymphocytes/100 WBC (Bld) 12.6 % Low 19-41 [facility] Comment on above: Performed By: #### L 100.0100, L500.4050 #### [facility] [address] [place], [address] MCH (RBC) [Entitic mass] 31.5 pg Normal 27.0-32.0 [facility] Comment on above: Performed By: #### L 100.0100, L500.4050 #### [facility] [address] [place], [address] MCHC (RBC) [Mass/Vol] 32.6 g/dL Normal 32-36 [facility] Comment on above: Performed By: #### L 100.0100, L500.4050 #### [facility] [address] [place], [address] MCV (RBC) [Entitic vol] 96.6 fL High 80-94 [facility] Comment on above: Performed By: #### L 100.0100, L500.4050 #### [facility] [address] [place], [address] Monocytes/100 WBC (Bld) 7.2 % Normal 0-10 [facility] Comment on above: Performed By: #### L 100.0100, L500.4050 #### [facility] [address] [place], [address] Neutrophils/100 WBC (Bld) 77.5 % High 47-70 [facility] Comment on above: Performed By: #### L 100.0100, L500.4050 #### [facility] [address] [place], [address] Nucleated RBC (Bld) [#/Vol] 0 10*3/uL Normal 0-5 [facility] Comment on above: Performed By: #### L 100.0100, L500.4050 #### [facility] [address] [place], [address] Platelet mean volume (Bld) [Entitic vol] 9.2 fL Normal 6.2-12.0 [facility] Comment on above: Performed By: #### L 100.0100, L500.4050 #### [facility] [address] [place], [address] Platelets (Bld) [#/Vol] 148 10*3/uL Low 150-450 [facility] [facility] Comment on above: Performed By: #### L 100.0100, L500.4050 #### [facility] [address] [place], [address] RBC (Bld) [#/Vol] 3.56 10*6/uL Low 4.6-6.2 [facility] Comment on above: Performed By: #### L 100.0100, L500.4050 #### [facility] [address] [place], [address] RDW SD 49.2 fl High 35.1-43.9 [facility] Comment on above: Performed By: #### L 100.0100, L500.4050 #### [facility] [address] [place], [address] WBC (Bld) [#/Vol] 7.8 10*3/uL Normal 4.4-11.0 [facility] Comment on above: Performed By: #### L 100.0100, L500.4050 #### [facility] [address] [place], [address] Comprehensive Metabolic Prof [facility] 04-29-2024 Albumin [Mass/Vol] 2.7 g/dL Low 3.2-5.0 [facility] Comment on above: Performed By: #### L 100.0100, L500.4050 #### [facility] [address] [place], [address] Albumin/Globulin [Mass ratio] 0.8 {ratio} Low 0.9-2.4 [facility] Comment on above: Performed By: #### L 100.0100, L500.4050 #### [facility] [address] [place], [address] ALK P 124 U/L High 45-117 [facility] Comment on above: Performed By: #### L 100.0100, L500.4050 #### [facility] [address] [place], [address] ALT [Catalytic activity/Vol] 17 U/L Normal 16-61 [facility] Comment on above: Performed By: #### L 100.0100, L500.4050 #### [facility] [address] [place], [address] AST [Catalytic activity/Vol] 33 U/L Normal 15-37 [facility] Comment on above: Performed By: #### L 100.0100, L500.4050 #### [facility] [address] [place], [address] Bilirubin [Mass/Vol] 0.60 mg/dL Normal 0.20-1.00 [facility] Comment on above: Result Comment: For patients on eltrombopag therapy, use of Dimension [place] TBIL is not recommended. Performed By: #### L 100.0100, L500.4050 #### [facility] [address] [place], [address] BUN/CRE 21.6 RATIO High 10-20 [facility] Comment on above: Performed By: #### L 100.0100, L500.4050 #### [facility] [address] [place], [address] CA,Total 8.6 mg/dL Normal 8.5-10.1 [facility] Comment on above: Performed By: #### L 100.0100, L500.4050 #### [facility] [address] [place], [address] Chloride [Moles/Vol] 110 mmol/L High 98-107 [facility] Comment on above: Performed By: #### L 100.0100, L500.4050 #### [facility] [address] [place], [address] CO2 [Moles/Vol] 25.0 mmol/L Normal 21.0-32.0 [facility] Comment on above: Performed By: #### L 100.0100, L500.4050 #### [facility] [address] [place], [address] Creatinine [Mass/Vol] 0.92 mg/dL Normal 0.70-1.30 [facility] Comment on above: Result Comment: The validity of the calculated GFR GFRAA in patients over 70 years has not been determined. Clinical correlation is essential. Performed By: #### L 100.0100, L500.4050 #### [facility] [address] [place], [address] ECRCL 62.41 ml/min Normal [facility] Comment on above: Performed By: #### L 100.0100, L500.4050 #### [facility] [address] [place], [address] EST GFR - AA 101 mL/min Normal >60 [facility] Comment on above: Result Comment: Afri can Eritrean GFR Calc Performed By: #### L 100.0100, L500.4050 #### [facility] [address] [place], [address] GAP 5 Normal 5-15 [facility] Comment on above: Performed By: #### L 100.0100, L500.4050 #### [facility] [address] [place], [address] GFR/1.73 sq M.predicted among non-blacks MDRD (S/P/Bld) [Vol rate/Area] 84 mL/min/{1.73_m2} Normal >60 [facility] Comment on above: Result Comment: Non- GFR Calc Performed By: #### L 100.0100, L500.4050 #### [facility] [address] [place], [address] Globulin (S) [Mass/Vol] 3.2 g/dL Normal 2.2-4.2 [facility] Comment on above: Performed By: #### L 100.0100, L500.4050 #### [facility] [address] [place], [address] Glucose [Mass/Vol] 103 mg/dL Normal 74-106 [facility] Comment on above: Result Comment: Fast ing Glucose result from 100 to 125 mg/dL suggests IMPAIRED HOMEOSTASIS per A.D.A. criteria. Performed By: #### L 100.0100, L500.4050 #### [facility] [address] [place], [address] Potassium [Moles/Vol] 4.0 mmol/L Normal 3.5-5.1 [facility] Comment on above: Performed By: #### L 100.0100, L500.4050 #### [facility] [address] [place], [address] Sodium [Moles/Vol] 140 mmol/L Normal 136-145 [facility] Comment on above: Performed By: #### L 100.0100, L500.4050 #### [facility] [address] [place], [address] T PROT 5.9 g/dL Low 6.4-8.2 [facility] Comment on above: Performed By: #### L 100.0100, L500.4050 #### [facility] [address] [place], [address] Urea nitrogen [Mass/Vol] 20 mg/dL High 7-18 [facility] Comment on above: Performed By: #### L 100.0100, L500.4050 #### [facility] [address] [place], [address] Culture, Blood (WB)on 2023 CUB Blood cultures x2, from two different sites ANAEROBIC AEROBIC BOTTLES POSITIVE. GRAM STAIN= GRAM NEGATIVE RODS Culture, Blood (WB) RESULTS CALLED TO ALEIDA 04/27/24 0339 [facility] [place]. REPORT READ BACK BY SAME. Klebsiella pneumoniae sp pneum Amount Growth Growth Klebsiella pneumoniae sp pneum: REACTION Ampicillin Islt ROSAMARIA Ampicillin+Sulbac Islt ROSAMARIA <=2 S Cefepime Islt ROSAMARIA <=0.12 S cefTRIAXone Islt ROSAMARIA <=0.25 S Ciprofloxacin Islt ROSAMARIA <=0.06 S B-Lactamase Extended Susc Islt NEG Gentamicin Islt ROSAMARIA <=1 S levoFLOXacin Islt ROSAMARIA <=0.12 S Meropenem Islt ROSAMARIA <=0.25 S Pip+Tazo Islt ROSAMARIA <=4 S TMP SMX Islt ROSAMARIA <=20 S Normal [facility] Comment on above: Performed By: #### L 501.2300, L501.5200 #### [facility] [address] [place], [address] Basic Metabolic Profile (BMP )on 04-28-2024 BUN/CRE 28.3 RATIO High 10-20 [facility] Comment on above: Performed By: #### L 100.0100, L500.4050 #### [facility] [address] [place], [address] CA,Total 8.5 mg/dL Normal 8.5-10.1 [facility] Comment on above: Performed By: #### L 100.0100, L500.4050 #### [facility] [address] [place], [address] Chloride [Moles/Vol] 111 mmol/L High 98-107 [facility] Comment on above: Performed By: #### L 100.0100, L500.4050 #### [facility] [address] [place], [address] CO2 [Moles/Vol] 25.0 mmol/L Normal 21.0-32.0 [facility] Comment on above: Performed By: #### L 100.0100, L500.4050 #### [facility] [address] [place], [address] Creatinine [Mass/Vol] 0.85 mg/dL Normal 0.70-1.30 [facility] Comment on above: Result Comment: The validity of the calculated GFR GFRAA in patients over 70 years has not been determined. Clinical correlation is essential. Performed By: #### L 100.0100, L500.4050 #### [facility] [address] [place], [address] ECRCL 67.35 ml/min Normal [facility] Comment on above: Performed By: #### L 100.0100, L500.4050 #### [facility] [address] [place], [address] EST GFR - AA 112 mL/min Normal >60 [facility] Comment on above: Result Comment: Afri can Eritre[place] GFR Calc Performed By: #### L 100.0100, L500.4050 #### [facility] [address] [place], [address] GAP 4 Low 5-15 [facility] Comment on above: Performed By: #### L 100.0100, L500.4050 #### [facility] [address] [place], [address] GFR/1.73 sq M.predicted among non-blacks MDRD (S/P/Bld) [Vol rate/Area] 92 mL/min/{1.73_m2} Normal >60 [facility] Comment on above: Result Comment: Non- GFR Calc Performed By: #### L 100.0100, L500.4050 #### [facility] [address] [place], [address] Glucose [Mass/Vol] 90 mg/dL Normal 74-106 [facility] Comment on above: Performed By: #### L 100.0100, L500.4050 #### [facility] [address] [place], [address] Potassium [Moles/Vol] 3.9 mmol/L Normal 3.5-5.1 [facility] Comment on above: Performed By: #### L 100.0100, L500.4050 #### [facility] [address] [place], [address] Sodium [Moles/Vol] 140 mmol/L Normal 136-145 [facility] Comment on above: Performed By: #### L 100.0100, L500.4050 #### [facility] [address] [place], [address] Urea nitrogen [Mass/Vol] 24 mg/dL High 7-18 [facility] Comment on above: Performed By: #### L 100.0100, L500.4050 #### [facility] [address] [place], [address] CBC W/Diff, Automatedon 04-06 SMEAR COMMENT SCANNED Normal [facility] Comment on above: Performed By: #### L 100.0100, L500.4050 #### [facility] [address] [place], [address] Magnesiumon 04-28-2024 Magnesium [Mass/Vol] 1.6 mg/dL Normal 1.6-2.6 [facility] Comment on above: Performed By: #### L 100.0100, L500.4050 #### [facility] [address] [place], [address] Phosphoruson 04-28-2024 Phosphate [Mass/Vol] 2.4 mg/dL Low 2.5-4.9 [facility] Comment on above: Performed By: #### L 100.0100, L500.4050 #### [facility] [address] [place], [address] Urine Cultureon 04-28-2024 URC Klebsiella pneumoniae sp pneum Eleva Count >100,000 Klebsiella pneumoniae sp pneum: REACTION Ampicillin Islt ROSAMARIA Ampicillin+Sulbac Islt ROSAMARIA <=2 S Cefepime Islt ROSAMARIA <=0.12 S cefTRIAXone Islt ROSAMARIA <=0.25 S Ciprofloxacin Islt ROSAMARIA <=0.06 S B-Lactamase Extended Susc Islt NEG Gentamicin Islt ROSAMARIA <=1 S levoFLOXacin Islt ROASMARIA <=0.12 S Meropenem Islt ROSAMARIA <=0.25 S Nitrofurantoin Islt ROSAMARIA <=16 S Pip+Tazo Islt ROSAMARIA <=4 S TMP SMX Islt ROSAMARIA <=20 S Normal [facility] Comment on above: Performed By: #### L 501.2300, L501.5200 #### [facility] [address] [place], [address] CBC W/Diff, Automatedon 12- SMEAR COMMENT SCANNED Normal [facility] Comment on above: Result Comment: LYMP HOPENIA PRESENT LEFT SHIFT: BANDS PRESENT 2+ Performed By: #### L 100.0100, L500.4050 #### [facility] [address] [place], [address] Comprehensive Metabolic Prof ilon 04-27-2024 Albumin [Mass/Vol] 2.7 g/dL Low 3.2-5.0 [facility] Comment on above: Performed By: #### L 100.0100, L500.4050 #### [facility] [address] [place], [address] Albumin/Globulin [Mass ratio] 1.0 {ratio} Normal 0.9-2.4 [facility] Comment on above: Performed By: #### L 100.0100, L500.4050 #### [facility] [address] [place], [address] ALK P 78 U/L Normal 45-117 [facility] Comment on above: Performed By: #### L 100.0100, L500.4050 #### [facility] [address] [place], [address] ALT [Catalytic activity/Vol] 10 U/L Low 16-61 [facility] Comment on above: Performed By: #### L 100.0100, L500.4050 #### [facility] [address] [place], [address] AST [Catalytic activity/Vol] 27 U/L Normal 15-37 [facility] Comment on above: Performed By: #### L 100.0100, L500.4050 #### [facility] [address] [place], [address] Bilirubin [Mass/Vol] 0.90 mg/dL Normal 0.20-1.00 [facility] Comment on above: Result Comment: For patients on eltrombopag therapy, use of Dimension [place] TBIL is not recommended. Performed By: #### L 100.0100, L500.4050 #### [facility] [address] [place], [address] BUN/CRE 22.9 RATIO High 10-20 [facility] Comment on above: Performed By: #### L 100.0100, L500.4050 #### [facility] [address] [place], [address] CA,Total 8.3 mg/dL Low 8.5-10.1 [facility] Comment on above: Performed By: #### L 100.0100, L500.4050 #### [facility] [address] [place], [address] Chloride [Moles/Vol] 112 mmol/L High 98-107 [facility] Comment on above: Performed By: #### L 100.0100, L500.4050 #### [facility] [address] [place], [address] CO2 [Moles/Vol] 23.0 mmol/L Normal 21.0-32.0 [facility] Comment on above: Performed By: #### L 100.0100, L500.4050 #### [facility] [address] [place], [address] Creatinine [Mass/Vol] 1.09 mg/dL Normal 0.70-1.30 [facility] Comment on above: Result Comment: The validity of the calculated GFR GFRAA in patients over 70 years has not been determined. Clinical correlation is essential. Performed By: #### L 100.0100, L500.4050 #### [facility] [address] [place], [address] ECRCL 48.85 ml/min Normal [facility] Comment on above: Performed By: #### L 100.0100, L500.4050 #### [facility] [address] [place], [address] EST GFR - AA 84 mL/min Normal >60 [facility] Comment on above: Result Comment: Afri can Eritrean GFR Calc Performed By: #### L 100.0100, L500.4050 #### [facility] [address] [place], [address] GAP 6 Normal 5-15 [facility] Comment on above: Performed By: #### L 100.0100, L500.4050 #### [facility] [address] [place], [address] GFR/1.73 sq M.predicted among non-blacks MDRD (S/P/Bld) [Vol rate/Area] 69 mL/min/{1.73_m2} Normal >60 [facility] Comment on above: Result Comment: Non- GFR Calc Performed By: #### L 100.0100, L500.4050 #### [facility] [address] [place], [address] Globulin (S) [Mass/Vol] 2.6 g/dL Normal 2.2-4.2 [facility] Comment on above: Performed By: #### L 100.0100, L500.4050 #### [facility] [address] [place], [address] Glucose [Mass/Vol] 92 mg/dL Normal 74-106 [facility] Comment on above: Performed By: #### L 100.0100, L500.4050 #### [facility] [address] [place], [address] Potassium [Moles/Vol] 3.7 mmol/L Normal 3.5-5.1 [facility] Comment on above: Performed By: #### L 100.0100, L500.4050 #### [facility] [address] [place], [address] Sodium [Moles/Vol] 140 mmol/L Normal 136-145 [facility] Comment on above: Performed By: #### L 100.0100, L500.4050 #### [facility] [address] [place], [address] T PROT 5.3 g/dL Low 6.4-8.2 [facility] Comment on above: Performed By: #### L 100.0100, L500.4050 #### [facility] [address] [place], [address] Urea nitrogen [Mass/Vol] 25 mg/dL High 7-18 [facility] Comment on above: Performed By: #### L 100.0100, L500.4050 #### [facility] [address] [place], [address] 12 Lead EKGon 04-26-2024 12 Lead EKG [facility] Cardiovascular Services [address] [place] [address] 12 Lead EKG 04/26/24 1444 MR#: [id number] Acct: [id number] Name: ADI LUND Rep #: [id number] : 1945 78 From: Daniel Kaplan MD Attending Dr: Dr. Shanel Moses, DO Status: ADM I N Ordering Dr: Aaron Yeung MEDICAL EDUCATION MANAGEREfren Date: 04/26/24 Location: ICU Sex: M C Admitted: 04/26/24 Test Reason : COMPLAINT Blood Pressure : */* mmHG Vent. Rate : 115 BPM Atrial Rate : 115 BPM P-R Int : * ms QRS Dur : 188 ms QT Int : 406 ms P-R-T Axes : 89 246 66 degrees QTcB Int : 561 ms Ventricular-paced rhythm Abnormal ECG 55 bpm Confirmed by DANIEL KAPLAN MD ([id number]), editor producer VIOLETA EDUARDO ([id number]) on 04/27/2024 8:24:05 AM Referred By: Confirmed By: DANIEL KAPLAN MD 04/27/24 0824 Date Daniel Kaplan MD CC: ASHLEY Yeung; Dr. Juan Carlos Joel MD; Dr. Shanel Moses, DO Signed Normal [facility] Abdomen/Pelvis W IV Cont ONL Yon 04-26-2024 Abdomen/Pelvis W IV Cont ONLY [facility] Imaging Services [facility] [place], [place] [address] Abdomen/Pelvis W IV Cont ONLY MR#: [id number] Acct: [id number] Name: ADI LUND Rep #: [id number] : 1945 78 From: Justice Connolly MD PCP: Dr. Juan Carlos Joel MD Status: [facility] ER Study: Abdomen/Pelvis W IV Cont ONLY Date of Exam: Exam# [id number] Ordering Dr: Aaron Yeung [id number] EXAM: CT ABDOMEN AND PELVIS WITH INTRAVENOUS CONTRAST CLINICAL INDICATION: hematuria TECHNIQUE: Helically acquired images were obtained of the abdomen and pelvis with intravenous contrast. This CT exam was performed using one or more of the following dose reduction techniques: automated exposure control, adjustment of the mA and/or kV according to patient size, and/or use of iterative reconstruction technique. CONTRAST: IV 100mL Isovue-370 COMPARISON: No relevant prior studies available. FINDINGS: LOWER THORAX: Mild bibasilar atelectasis. Mild cardiomegaly. ABDOMEN: LIVER: Normal. Homogeneous. No focal mass. GALLBLADDER AND BILE DUCTS: Normal. No calcified gallstones. No gallbladder distention or wall edema. No intra- or extrahepatic biliary ductal dilation. PANCREAS: Normal. No focal cystic or solid mass. SPLEEN: Spleen is top normal size. Small lateral perisplenic fluid collection noted. Small peripheral cyst within the spleen. ADRENALS: Normal. No nodules. KIDNEYS AND URETERS: Normal. Normal renal size and position. No hydronephrosis. STOMACH AND BOWEL: Prominent fecal distention of the rectum raises possibility of impaction. No focal inflammatory change. PELVIS: APPENDIX: No evidence of acute appendicitis. BLADDER: Sheehan catheter in place within a thick-walled urinary bladder. REPRODUCTIVE: Unremarkable as visualized. No mass. ABDOMEN and PELVIS: INTRAPERITONEAL SPACE: No free peritoneal fluid. No free air. BONES/JOINTS: Right hip prosthesis in place. Prominent degenerative changes are noted within the spine. SOFT TISSUES: Soft tissue thickening along the right inguinal canal associated with multiple surgical clips which may represent postoperative seroma related to herniorrhaphy. No discrete abdominal or pelvic wall hernia. VASCULATURE: Normal. Abdominal aorta is non-dilated. LYMPH NODES: Normal. No enlarged lymph nodes. CT/Abdomen/Pelvis W IV Cont ONLY IMPRESSION: Nonspecific perinephric fluid collection which may be related to remote trauma. Sheehan catheter in place within a thick-walled urinary bladder. Findings may be related to cystitis. Question rectal impaction. Electronically Signed: Justice Connolly MD at 16:15 EST Reading Location ID and State: [address] [place] [address] Tel , Service support , CC: ASHLEY Yeung; Dr. Juan Carlos Joel MD Commodity Manager: Signed Normal [facility] CBC W/Diff, Automatedon 12-2 Absolute Lymph 0.11 X10 3/uL Low 0.83-4.51 [facility] Comment on above: Performed By: #### L 097.3990, L501.5200 #### [facility] [address] [place], [place], [address] Absolute Neut 6.2 X10 3/uL Normal 2.0-7.7 [facility] Comment on above: Performed By: #### L 501.2300, L501.5200 #### [facility] [address] [place], [address] Basophils/100 WBC (Bld) 0.3 % Normal 0-1 [facility] Comment on above: Performed By: #### L 501.2300, L501.5200 #### [facility] [address] [place], [address] Eosinophils/100 WBC (Bld) 0.2 % Normal 0-5 [facility] Comment on above: Performed By: #### L 501.2300, L501.5200 #### [facility] [address] [place], [address] Erythrocyte distribution width (RBC) [Ratio] 13.2 % Normal 11.6-14.6 [facility] Comment on above: Performed By: #### L 501.2300, L501.5200 #### [facility] [address] [place], [address] Hematocrit (Bld) [Volume fraction] 37.9 % Low 40-54 [facility] Comment on above: Performed By: #### L 501.2300, L501.5200 #### [facility] [address] [place], [address] Hemoglobin (Bld) [Mass/Vol] 12.5 g/dL Low 13.0-16.5 [facility] Comment on above: Performed By: #### L 501.2300, L501.5200 #### [facility] [address] [place], [address] IG% 0.500 Normal 0.0-0.9 [facility] Comment on above: Result Comment: IG% - Immature Granulocytes (promyelocytes, myelocytes and metamyelocytes) > 1% indicates that a LEFT SHIFT is Present. Performed By: #### L 501.2300, L501.5200 #### [facility] [address] [place], [address] Lymphocytes/100 WBC (Bld) 1.7 % Low 19-41 [facility] Comment on above: Performed By: #### L 501.2300, L501.5200 #### [facility] [address] [place], [address] MCH (RBC) [Entitic mass] 31.6 pg Normal 27.0-32.0 [facility] Comment on above: Performed By: #### L 501.2300, L501.5200 #### [facility] [address] [place], [address] MCHC (RBC) [Mass/Vol] 33.0 g/dL Normal 32-36 [facility] Comment on above: Performed By: #### L 501.2300, L501.5200 #### [facility] [address] [place], [address] MCV (RBC) [Entitic vol] 95.7 fL High 80-94 [facility] Comment on above: Performed By: #### L 501.2300, L501.5200 #### [facility] [address] [place], [address] Monocytes/100 WBC (Bld) 0.3 % Normal 0-10 [facility] Comment on above: Performed By: #### L 501.2300, L501.5200 #### [facility] [address] [place], [address] Neutrophils/100 WBC (Bld) 97.0 % High 47-70 [facility] Comment on above: Performed By: #### L 501.2300, L501.5200 #### [facility] [address] [place], [address] Nucleated RBC (Bld) [#/Vol] 0 10*3/uL Normal 0-5 [facility] Comment on above: Performed By: #### L 501.2300, L501.5200 #### [facility] [address] [place], [address] Platelet mean volume (Bld) [Entitic vol] 9.1 fL Normal 6.2-12.0 [facility] Comment on above: Performed By: #### L 501.2300, L501.5200 #### [facility] [address] [place], [address] Platelets (Bld) [#/Vol] 173 10*3/uL Normal 150-450 [facility] Comment on above: Performed By: #### L 501.2300, L501.5200 #### [facility] [address] [place], [address] RBC (Bld) [#/Vol] 3.96 10*6/uL Low 4.6-6.2 [facility] Comment on above: Performed By: #### L 501.2300, L501.5200 #### [facility] [address] [place], [address] RDW SD 47.1 fl High 35.1-43.9 [facility] Comment on above: Performed By: #### L 501.2300, L501.5200 #### [facility] [address] [place], [address] WBC (Bld) [#/Vol] 6.4 10*3/uL Normal 4.4-11.0 [facility] Comment on above: Performed By: #### L 501.2300, L501.5200 #### [facility] [address] [place], [address] Chest 1 View (Portable)on Chest 1 View (Portable) [facility] Imaging Services [address] [place] [address] Chest 1 View (Portable) MR#: [id number] Acct: [id number] Name: ADI LUND Rep #: [id number] : 1945 M 78 From: Timoteo wiggins DO PCP: Dr. Juan Carlos Joel MD Status: REG ER Study: Chest 1 View (Portable) Date of Exam: 04/26/24 Exam# [id number] Ordering Dr: Aaron Yeung MEDICAL EDUCATION MANAGER-Silvina [id number] EXAM: XR CHEST, 1 VIEW CLINICAL INDICATION: cough TECHNIQUE: Frontal view of the chest. COMPARISON: 01/18/2024 FINDINGS: LUNGS AND PLEURAL SPACES: Hyperinflation of the lungs and perhaps mild interstitial prominence without focal airspace disease likely indicative of COPD. No pneumothorax. No effusion. HEART: Status post CABG. No cardiomegaly. MEDIASTINUM: Central airways and mediastinal contour are unremarkable. BONES/JOINTS: Median sternotomy. No acute fracture. SOFT TISSUES: No significant abnormality. TUBES, LINES AND DEVICES: Left-sided cardiac device. RAD/Chest 1 View (Portable) IMPRESSION: 1. Hyperinflation of the lungs and perhaps mild interstitial prominence without focal airspace disease likely indicative of COPD. 2. Status post CABG. No cardiomegaly. Electronically Signed: Timoteo Hernandez DO at 15:23 EST , CC: ASHLEY Yeung; Dr. Juan Carlos Joel MD Commodity Manager: Signed Normal [facility] Comprehensive Metabolic Prof ilon 04-26-2024 Albumin [Mass/Vol] 3.2 g/dL Normal 3.2-5.0 [facility] Comment on above: Performed By: #### L 501.2300, L501.5200 #### [facility] [address] [place], [address] Albumin/Globulin [Mass ratio] 1.0 {ratio} Normal 0.9-2.4 [facility] Comment on above: Performed By: #### L 501.2300, L501.5200 #### [facility] [address] [place], [address] ALK P 106 U/L Normal 45-117 [facility] Comment on above: Performed By: #### L 501.2300, [id number] #### [facility] [address] [place], [address] ALT [Catalytic activity/Vol] 49 U/L Normal 16-61 [facility] Comment on above: Performed By: #### L 501.2300, [id number] #### [facility] [address] [place], [address] AST [Catalytic activity/Vol] 28 U/L Normal 15-37 [facility] Comment on above: Performed By: #### L 501.2300, L501.5200 #### [facility] [address] [place], [address] Bilirubin [Mass/Vol] 0.70 mg/dL Normal 0.20-1.00 [facility] Comment on above: Result Comment: For patients on eltrombopag therapy, use of Dimension [place] TBIL is not recommended. Performed By: #### L 501.2300, L501.5200 #### [facility] [address] [place], [address] BUN/CRE 16.7 RATIO Normal 10-20 [facility] Comment on above: Performed By: #### L 501.2300, [id number] #### [facility] [address] [place], [address] CA,Total 9.2 mg/dL Normal 8.5-10.1 [facility] Comment on above: Performed By: #### L 501.2300, [id number] #### [facility] [address] [place], [address] Chloride [Moles/Vol] 107 mmol/L Normal 98-107 [facility] Comment on above: Performed By: #### L 501.2300, [id number] #### [facility] [address] [place], [address] CO2 [Moles/Vol] 24.0 mmol/L Normal 21.0-32.0 [facility] Comment on above: Performed By: #### L 501.2300, [id number] #### [facility] [address] [place], [address] Creatinine [Mass/Vol] 1.38 mg/dL High 0.70-1.30 [facility] Comment on above: Result Comment: The validity of the calculated GFR GFRAA in patients over 70 years has not been determined. Clinical correlation is essential. Performed By: #### L 501.2300, L501.5200 #### [facility] [address] [place], [address] ECRCL 39.86 ml/min Normal [facility] Comment on above: Performed By: #### L 501.2300, L501.5200 #### [facility] [address] [place], [address] EST GFR - AA 64 mL/min Normal >60 [facility] Comment on above: Result Comment: Afri can Eritrean GFR Calc Performed By: #### L 501.2300, L501.5200 #### [facility] [address] [place], [address] GAP 9 Normal 5-15 [facility] Comment on above: Performed By: #### L 501.2300, L501.5200 #### [facility] [address] [place], [address] GFR/1.73 sq M.predicted among non-blacks MDRD (S/P/Bld) [Vol rate/Area] 53 mL/min/{1.73_m2} Low >60 [facility] Comment on above: Result Comment: Non- GFR Calc Performed By: #### L 501.2300, L501.5200 #### [facility] [address] [place], [address] Globulin (S) [Mass/Vol] 3.1 g/dL Normal 2.2-4.2 [facility] Comment on above: Performed By: #### L 501.2300, L501.5200 #### [facility] [address] [place], [address] Glucose [Mass/Vol] 138 mg/dL High 74-106 [facility] Comment on above: Result Comment: Fast ing Glucose result greater than or equal to 126 mg/dL suggests DIABETES MELLITUS per A.D.A. criteria. Performed By: #### L 501.2300, L501.5200 #### [facility] [address] [place], [address] Potassium [Moles/Vol] 3.5 mmol/L Normal 3.5-5.1 [facility] Comment on above: Performed By: #### L 501.2300, L501.5200 #### [facility] [address] [place], [address] Sodium [Moles/Vol] 140 mmol/L Normal 136-145 [facility] Comment on above: Performed By: #### L 501.2300, [id number] #### [facility] [address] [place], [address] T PROT 6.3 g/dL Low 6.4-8.2 [facility] Comment on above: Performed By: #### L 501.2300, [id number] #### [facility] [address] [place], [address] Urea nitrogen [Mass/Vol] 23 mg/dL High 7-18 [facility] Comment on above: Performed By: #### L 501.2300, L501.5200 #### [facility] [address] [place], [address] Consultation - Intensiviston 04-26-2024 Consultation - Religious Leader [facility] Medical Records Department [address] [place] [address] Consultation - Religious Leader 04/26/24 1802 MR#: [id number] Acct: [id number] Name: ADI LUND Rep #: [id number] : 1945 78 From: Drew Hale MD PCP: Dr. Juan Carlos Joel MD Status:ADM IN Location: ICU ICU02-[address] Drew Hale MD on 04/26/24 at 1826 Addendum Hospice revoked per prior to admit, will need to revisit GOC and possibly going back on hospice prior to discharge 04/26/241825 Cosigner Signature (if applicable): cc: Dr. Juan Carlos Joel MD * Signed HPI Consult Data Date of Consult: 04/26/24 HPI Narrative HPI Narrative: ADI LUND, is a 78 yo M w/ Parkinson's disease, CHF EF 30% s/p ICD, CAD s/p CABG and PCI, paroxysmal SVT, BPH, CKD, anemia, depression who was admitted for weakness and septic shock. History provided per at bedside. He apparently developed acute onset weakness, unresponsiveness and fevers this AM. He was on hospice for severe Parkinson's, however she revoked this and brought him to hospital. He was noted to be febrile, hypotensive, and with UA/CT findings concerning for UTI. He was given IVF boluses and started on empiric abx. He is apparently substantially more alert now per , though still not speaking much. Family did continue DNR/DNI, and per discussion with hospitalist they did not want any invasive lines or initiation of vasopressors. They are OK with trying midodrine. Per he did not report any recent dyspnea, cough, abd pain, vomiting, diarrhea, dysuria or other new sx. 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-P) Parkinson's disease Mixed hyperlipidemia Abnormal echocardiogram Nonrheumatic mitral (valve) prolapse Presence of stent in coronary artery ( 03/21/10) Essential hypertension Paroxysmal supraventricular tachycardia Chest discomfort Fatigue Angina pectoris Atherosclerotic heart disease of [place] coronary artery without angina pectoris Ischemic cardiomyopathy Left bundle branch block Chronic systolic heart failure [facility] use of drug Abnormal electrocardiogram Nonspecific abnormal unspecified cardiovascular function study Paroxysmal supraventricular tachycardia by electrocardiogram (ECG) Home Medications ???Medication ???Instructions ???Recorded ???Last Taken ???Type aspirin 81 mg tablet,delayed 81 mg PO DAILY@0800 heart health 04/21/13 12/30/23 History release nitroglycerin 0.4 mg sublingual 0.4 mg sublingual Q5M PRN Chest 06/12/19 Unknown Rx tablet Pain #25 tabs albuterol sulfate 90 mcg/actuation 2 puff inhalation Q6H PRN 01/27/20 Unknown Rx aerosol inhaler shortness of breath or wheezing #6.7 grams carbidopa 25 mg-levodopa 100 mg 2 tab PO 4X/DAY parkinsons 06/25/23 01/18/24 17:00 History tablet 2 tabs Handicap Placcard #1 ea 07/25/23 Unknown Rx finasteride 5 mg tablet 5 mg PO DAILY prostate health 12/19/23 12/31/23 History mirtazapine 30 mg tablet 30 mg PO DAILY mood 12/19/23 Unknown History tamsulosin 0.4 mg capsule 0.4 mg PO DAILY prostate 12/19/23 Unknown History spironolactone 25 mg tablet 12.5 mg (1/2 x 25 mg) PO DAILY 30 01/21/24 Unknown Rx days #15 tabs acetaminophen 500 mg capsule 1,000 mg PO Q8H PRN pain 04/26/24 Unknown History furosemide 20 mg tablet (Lasix) 20 mg PO SUTUTH 04/26/24 Unknown History indapamide 1.25 mg tablet 1.25 mg PO MOWEFR 04/26/24 Unknown History lorazepam 0.5 mg tablet (Ativan) 0.5 mg PO 4X/DAY 04/26/24 Unknown History magnesium hydroxide 400 mg/5 mL 30 ml PO Q6H PRN constipation 04/26/24 Unknown History oral suspension (Milk of Magnesia) sennosides 8.6 mg-docusate sodium 2 tab-cap PO BID 04/26/24 Unknown History 50 mg capsule (Senna Plus) Allergy/AdvReac Type Severity Reaction Status Date / Time adhesive tape Allergy NEEDS Verified 04/26/24 14:31 FOLLOW-UP Family History Mother Hypertension Father COPD (chronic obstructive pulmonary disease) CAD (coronary artery disease) Hx CABG CVA (cerebral vascular accident) Brother CAD (coronary artery disease) Diabetes Hypertension Sister Hypertension Son HLD (hyperlipidemia) Other Heart disease Surgical History History of open reduction and internal fixation (ORIF) procedure ( 1979) History of bilateral inguinal hernia repair History of right hip replacement History of percutaneous transluminal coronary angioplasty ( 03/21/10) S/P implantation of automatic cardioverter/defibri llator (AICD) Aortocoronary bypass status ( 01/23/95) Social History (Updated 04/26/24 @ 17:[address] Maria Fernanda Wisdom MD) household membe (more content not included)... Normal [facility] Emergency Department Summary on 04-26-2024 Emergency Department Summary [facility] Medical Records Department [address] [place] [address] Emergency Department Summary 04/26/24 MR#: [id number] Acct: [id number] Name: ADI LUND Rep #: [id number] : 1945 78 From: Aaron Yeung MEDICAL EDUCATION MANAGER-C PCP: Dr. Juan Carlos Joel MD Status:REG ER Location: ED HPI History of Present Illness Chief Complaint: Complaint Narrative Narrative: Patient is an 78-year-old male who prior to arrival was currently on hospice for Parkinson's disease, ischemic cardiomyopathy, he does live at home. Hospice sees him once a week. Per the who is his POA, patient developed some blood in his urine, was more unresponsive and weak. On arrival here, she would like to revoke the hospice. Patient arrives via ambulance. 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) Parkinson's disease Mixed hyperlipidemia Abnormal echocardiogram Nonrheumatic mitral (valve) prolapse Presence of stent in coronary artery ( 03/21/10) Essential hypertension Paroxysmal supraventricular tachycardia Chest discomfort Fatigue Angina pectoris Atherosclerotic heart disease of [place] coronary artery without angina pectoris Ischemic cardiomyopathy Left bundle branch block Chronic systolic heart failure [facility] use of drug Abnormal electrocardiogram Nonspecific abnormal unspecified cardiovascular function study Paroxysmal supraventricular tachycardia by electrocardiogram (ECG) Home Medications ???Medication ???Instructions ???Recorded ???Last Taken ???Type aspirin 81 mg tablet,delayed 81 mg PO DAILY@0800 heart health 04/21/13 12/30/23 History release nitroglycerin 0.4 mg sublingual 0.4 mg sublingual Q5M PRN Chest 06/12/19 Unknown Rx tablet Pain #25 tabs albuterol sulfate 90 mcg/actuation 2 puff inhalation Q6H PRN 01/27/20 Unknown Rx aerosol inhaler shortness of breath or wheezing #6.7 grams ascorbic acid (vitamin C) 500 mg 500 mg PO DAILY supplement 10/31/20 Unknown History tablet melatonin 10 mg tablet 10 mg PO HS PRN insomnia 10/23/21 Unknown History cholecalciferol (vitamin D3) 250 250 mcg PO DAILY supplement 05/28/22 Unknown History mcg (10,000 unit) capsule carbidopa 25 mg-levodopa 100 mg 2 tab PO 4X/DAY parkinsons 06/25/23 01/18/24 17:00 History tablet 2 tabs metoprolol succinate 50 mg 25 mg PO DAILY heart/ blood 06/25/23 12/31/23 History tablet,extended release 24 hr pressure Handicap Placcard #1 ea 07/25/23 Unknown Rx finasteride 5 mg tablet 5 mg PO DAILY prostate health 12/19/23 12/31/23 History mirtazapine 30 mg tablet 30 mg PO DAILY mood 12/19/23 Unknown History tamsulosin 0.4 mg capsule 0.4 mg PO DAILY prostate 12/19/23 Unknown History atorvastatin 80 mg tablet 80 mg PO QHS cholesterol 01/19/24 Unknown History ramipril 1.25 mg capsule 1.25 mg PO DAILY 30 days #30 caps 01/21/24 Unknown Rx spironolactone 25 mg tablet 12.5 mg (1/2 x 25 mg) PO DAILY 30 01/21/24 Unknown Rx days #15 tabs acetaminophen 500 mg capsule 1,000 mg PO Q8H PRN pain 04/26/24 Unknown History furosemide 20 mg tablet (Lasix) 20 mg PO SUTUTH 04/26/24 Unknown History indapamide 1.25 mg tablet 1.25 mg PO MOWEFR 04/26/24 Unknown History lorazepam 0.5 mg tablet (Ativan) 0.5 mg PO 4X/DAY 04/26/24 Unknown History magnesium hydroxide 400 mg/5 mL 30 ml PO Q6H PRN constipation 04/26/24 Unknown History oral suspension (Milk of Magnesia) sennosides 8.6 mg-docusate sodium 2 tab-cap PO BID 04/26/24 Unknown History 50 mg capsule (Senna Plus) Allergy/AdvReac Type Severity Reaction Status Date / Time adhesive tape Allergy NEEDS Verified 04/26/24 14:31 FOLLOW-UP Family History Mother Hypertension Father COPD (chronic obstructive pulmonary disease) CAD (coronary artery disease) Hx CABG CVA (cerebral vascular accident) Brother CAD (coronary artery disease) Diabetes Hypertension Sister Hypertension Son HLD (hyperlipidemia) Other Heart disease Surgical History History of open reduction and internal fixation (ORIF) procedure ( 1979) History of bilateral inguinal hernia repair History of right hip replacement History of percutaneous transluminal coronary angioplasty ( 03/21/10) S/P implantation of automatic cardioverter/defibri llator (AICD) Aortocoronary bypass status ( 01/23/95) Social History Smoking Status: Never smoker alcohol intake: never substance use type: does not use caffeine: Yes Type: carbonated beverages Number of servings: 1 what type of physical activity do you participate in: none seatbelt use: always do you feel safe at home: Yes R (more content not included)... Normal [facility] H&P Exam - Hospitalist [facility] Medical Records Department [address] [place] [address] H P Exam - Hospitalist 04/26/24 1631 MR#: [id number] Acct: [id number] Name: ADI LUND Rep #: [id number] : 1945 78 From: Maria Fernanda Wisdom MD PCP: Dr. Juan Carlos Joel MD Status:ADM IN Location: ICU ICU02-1 HPI - General General Date of Admission: 04/26/24 Date of Service: 04/26/24 Chief Complaint: Decreased responsiveness, weakness. HPI Narrative The patient is an 78 y/o M w/ PMHx: Parkinson's disease, CAD/ischemic cardiomyopathy s/p CABG 1994 and PCI 2009, HTN, HLD, PSVT s/p AICD/cardiac resynchronization therapy pacemaker, HFrEF, BPH with obstructive pathology, Anxiety and Depression, Chronic anemia, CKD stage II per GFR trending who presents to the [facility] ED on 04/26/24 with history of hematuria with decreased responsiveness and worsening weakness prompting to bring patient into the ED for further evaluation. Patient is on hospice currently for Parkinson disease and significant underlying cardiac disease living at home with his spouse with hospice seeing him once weekly. Workup in the ED included T102.9, heart rate 109, BP 100/68, respiratory rate 24, initially 86% on room air improving to 99% on 2 L nasal cannula, CBC with WBC 6.4, hemoglobin 12.5, MCV 95.7, platelet 173 without marked shift with lymphopenia, unremarkable coags, CMP with BUN/creatinine 23/1.38, GFR 53, glucose 138, lactic acid 5.0, hepatic profile otherwise unremarkable, urinalysis with cloudy appearing urine, protein 15, occult blood 25, leukocyte esterase 500 with urine WBCs 50-100 with 3+ urine bacteria, blood culture x 2 pending per ED, urine culture pending per ED, rapid SARS COVID/influenza/RSV PCR negative, chest x-ray with hyperinflation of the lungs and perhaps mild interstitial prominence without any focal airspace disease likely indicated for COPD, no evidence of cardiomegaly, status post CABG evident, CT abdomen pelvis with IV contrast with nonspecific perinephric fluid collection possibly related to remote trauma, Sheehan catheter in place with a thick walled urinary bladder consistent with cystitis, questionable rectal impaction. In the ED patient initiated on 2 L normal saline (30 cc/kg IVF bolus per sepsis protocol), Tylenol 1000 mg p.o. x 1 and IV Zosyn. Review of patient's previous microbiology history with no additional cultures beyond today. 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-P) Parkinson's disease Mixed hyperlipidemia Abnormal echocardiogram Nonrheumatic mitral (valve) prolapse Presence of stent in coronary artery ( 03/21/10) Essential hypertension Paroxysmal supraventricular tachycardia Chest discomfort Fatigue Angina pectoris Atherosclerotic heart disease of [place] coronary artery without angina pectoris Ischemic cardiomyopathy Left bundle branch block Chronic systolic heart failure [facility] use of drug Abnormal electrocardiogram Nonspecific abnormal unspecified cardiovascular function study Paroxysmal supraventricular tachycardia by electrocardiogram (ECG) Home Medications ???Medication ???Instructions ???Recorded ???Last Taken ???Type aspirin 81 mg tablet,delayed 81 mg PO DAILY@0800 heart health 04/21/13 12/30/23 History release nitroglycerin 0.4 mg sublingual 0.4 mg sublingual Q5M PRN Chest 06/12/19 Unknown Rx tablet Pain #25 tabs albuterol sulfate 90 mcg/actuation 2 puff inhalation Q6H PRN 01/27/20 Unknown Rx aerosol inhaler shortness of breath or wheezing #6.7 grams carbidopa 25 mg-levodopa 100 mg 2 tab PO 4X/DAY parkinsons 06/25/23 01/18/24 17:00 History tablet 2 tabs Handicap Placcard #1 ea 07/25/23 Unknown Rx finasteride 5 mg tablet 5 mg PO DAILY prostate health 12/19/23 12/31/23 History mirtazapine 30 mg tablet 30 mg PO DAILY mood 12/19/23 Unknown History tamsulosin 0.4 mg capsule 0.4 mg PO DAILY prostate 12/19/23 Unknown History spironolactone 25 mg tablet 12.5 mg (1/2 x 25 mg) PO DAILY 30 01/21/24 Unknown Rx days #15 tabs acetaminophen 500 mg capsule 1,000 mg PO Q8H PRN pain 04/26/24 Unknown History furosemide 20 mg tablet (Lasix) 20 mg PO SUTUTH 04/26/24 Unknown History indapamide 1.25 mg tablet 1.25 mg PO MOWEFR 04/26/24 Unknown History lorazepam 0.5 mg tablet (Ativan) 0.5 mg PO 4X/DAY 04/26/24 Unknown History magnesium hydroxide 400 mg/5 mL 30 ml PO Q6H PRN constipation 04/26/24 Unknown History oral suspension (Milk of Magnesia) sennosides 8.6 mg-docusate sodium 2 tab-cap PO BID 04/26/24 Unknown History 50 mg capsule (Senna Plus) Allergy/AdvReac Type Severity Reaction Status Date / Time adhesive tape Allergy NEEDS Verified 04/26/24 14:31 FOLLOW-UP Family History Moth (more content not included)... Normal [facility] Lactic Acidon 04-26-2024 Lactate [Moles/Vol] 4.1 mmol/L Invalid Interpretation Code 0.4-1.9 [facility] Comment on above: Result Comment: Crit ical Result(s) Called at: 19:36:46 04/26/2024 by: TED ENCARNACION TO RAMIRO MELCHOR. Results read back by same. Performed By: #### L 400.0001 #### [facility] [address] [place], [place], [address] Lactate [Moles/Vol] 5.0 mmol/L Invalid Interpretation Code 0.4-1.9 [facility] Comment on above: Order Comment: Comme nts: May add to ED labs Comments: may add to ED labs Result Comment: Crit ical Result(s) Called at: 15:28:29 04/26/2024 by: TED ENCARNACION TO RAMIRO BYNUM. Results read back by same. Performed By: #### L 501.2300, L501.5200 #### [facility] [address] [place], [address] M100.678on 04-26-2024 M100.678 COVID NO RESULT FLUA NO RESULT FLUB NO RESULT RSV NO RESULT SARS-CoV-2 (COVID 19) Negative INFLUENZA A Negative INFLUENZA B Negative RSV PCR Negative Normal [facility] Comment on above: Performed By: #### L 501.2300, L501.5200 #### [facility] [address] [place], [address] M8200.1000on 04-26-2024 M8200.1000 Normal Reference Range = Negative MRSA DNA Nose Ql LISSET+probe GeneXpert Instrument, PCR method MRSA PCR MRSA NEGATIVE Normal [facility] Comment on above: Performed By: #### M 8200.1000 ####[facility] [address] [place], [address] Magnesiumon 04-26-2024 Magnesium [Mass/Vol] 1.6 mg/dL Normal 1.6-2.6 [facility] Comment on above: Order Comment: Comme nts: May add to ED labs Comments: may add to ED labs Performed By: #### L 501.2300, L501.5200 #### [facility] [address] [place], [address] Partial Thromboplast Timeon 04-26-2024 aPTT Coag (Bld) [Time] 27.0 s Normal 24.1-36.2 [facility] Comment on above: Performed By: #### L 501.2300, L501.5200 #### [facility] [address] [place], [address] Phosphoruson 04-26-2024 Phosphate [Mass/Vol] 1.6 mg/dL Low 2.5-4.9 [facility] Comment on above: Order Comment: Comme nts: May add to ED labs Comments: may add to ED labs Performed By: #### L 501.2300, L501.5200 #### [facility] [address] [place], [address] Prothrombin Time w/INRon INR Coag (PPP) [Relative time] 1.1 {INR} Normal [facility] Comment on above: Performed By: #### L 501.2300, L501.5200 #### [facility] [address] [place], [address] PT Coag (PPP) [Time] 14.4 s Normal 11.7-14.9 [facility] Comment on above: Performed By: #### L 501.2300, L501.5200 #### [facility] [address] [place], [address] RESPIRATORY PANEL MOLECULARo n 04-26-2024 RP PANEL ADENOVIRUS Not Detected INFLUENZA A Not Detected INFLUENZA A (SUBTYPE H1) Not Detected INFLUENZA A (SUBTYPE H3) Not Detected INFLUENZA B Not Detected HUMAN METAPHNEUMO Not Detected PARAINFLUENZA 1 Not Detected PARAINFLUENZA 2 Not Detected PARAINFLUENZA 3 Not Detected PARAINFLUENZA 4 Not Detected RHINOVIRUS Not Detected RSV A Not Detected RSV B Not Detected Normal [facility] Comment on above: Performed By: #### M 100.638 ####[facility] [address] [place], [address] Urinalysis, Completeon 04-26 RBC 0-5 SEEN Normal 0-5 [facility] Comment on above: Order Comment: ANABELLA TER SPECIMEN Performed By: #### L 400.0001 #### [facility] [address] [place], [address] BACTERIA 3+ /hpf Normal None Seen [facility] Comment on above: Order Comment: ANABELLA TER SPECIMEN Performed By: #### L 400.0001 #### [facility] [address] [place], [address] WBC 50-100 SEEN Normal 0-5 [facility] Comment on above: Order Comment: ANABELLA TER SPECIMEN Performed By: #### L 400.0001 #### [facility] [address] [place], [address] EPI,SQUAMOUS 0 SEEN Normal 0-5 [facility] [facility] Comment on above: Order Comment: ANABELLA TER SPECIMEN Performed By: #### L 400.0001 #### [facility] [address] [place], [address] Mucus Ql (Urine sed) 0 SEEN Normal [facility] Comment on above: Order Comment: ANABELLA TER SPECIMEN Performed By: #### L 400.0001 #### [facility] [address] [place], [address] Basic Metabolic Profile (BMP )on 02-06-2024 BUN/CRE 20.7 RATIO High 02-22 [facility] Comment on above: Performed By: #### L 400.0001 #### [facility] [address] [place], [address] CA,Total 9.6 mg/dL Normal 8.5-10.1 [facility] Comment on above: Performed By: #### L 400.0001 #### [facility] [address] [place], [address] Chloride [Moles/Vol] 104 mmol/L Normal 98-107 [facility] Comment on above: Performed By: #### L 400.0001 #### [facility] [address] [place], [address] CO2 [Moles/Vol] 26.0 mmol/L Normal 21.0-32.0 [facility] Comment on above: Performed By: #### L 400.0001 #### [facility] [address] [place], [address] Creatinine [Mass/Vol] 1.16 mg/dL Normal 0.70-1.30 [facility] Comment on above: Result Comment: The validity of the calculated GFR GFRAA in patients over 70 years has not been determined. Clinical correlation is essential. Performed By: #### L 400.0001 #### [facility] [address] [place], [address] EST GFR - AA 78 mL/min Normal >60 [facility] Comment on above: Result Comment: Afri can Eritrean GFR Calc Performed By: #### L 400.0001 #### [facility] [address] [place], [address] GAP 6 Normal 5-15 [facility] Comment on above: Performed By: #### L 400.0001 #### [facility] [address] [place], [address] GFR/1.73 sq M.predicted among non-blacks MDRD (S/P/Bld) [Vol rate/Area] 64 mL/min/{1.73_m2} Normal >60 [facility] Comment on above: Result Comment: Non- GFR Calc Performed By: #### L 400.0001 #### [facility] [address] [place], [address] Glucose [Mass/Vol] 106 mg/dL Normal 74-106 [facility] Comment on above: Result Comment: Fast ing Glucose result from 100 to 125 mg/dL suggests IMPAIRED HOMEOSTASIS per A.D.A. criteria. Performed By: #### L 400.0001 #### [facility] [address] [place], [address] Potassium [Moles/Vol] 4.4 mmol/L Normal 3.5-5.1 [facility] Comment on above: Performed By: #### L 400.0001 #### [facility] [address] [place], [address] Sodium [Moles/Vol] 135 mmol/L Low 136-145 [facility] Comment on above: Performed By: #### L 400.0001 #### [facility] [address] [place], [address] Urea nitrogen [Mass/Vol] 24 mg/dL High 7-18 [facility] Comment on above: Performed By: #### L 400.0001 #### [facility] [address] [place], [address] Magnesiumon 02-06-2024 Magnesium [Mass/Vol] 2.3 mg/dL Normal 1.6-2.6 [facility] Comment on above: Performed By: #### L 400.0001 #### [facility] [address] [place], [address] Pacemaker Checkon 02-03-2024 Pacemaker Check [facility] [place] [facility] [address] [place] [address] Pacemaker Check Date of Service: 02/03/24 170 MR#: [id number] Acct: [id number] Name: ADI LUND Rep #: [id number] : 1945 From: Kyara Santiago Age/Sex: 78/M Location: [facility] Status: Signed Billing Codes PM Device Codes: 53907 PM Dev Prog Eval, Multi Assessment and Plan Assessment and Plan (1) Presence of cardiac resynchronization therapy pacemaker (BONE CHAR OPERATOR-P): Status: Chronic Comment: BONE CHAR OPERATOR-D( normal battery depletion) changed out for BONE CHAR OPERATOR-P on 12/31/23 @ [facility] (2) Ischemic cardiomyopathy: Status: Chronic (3) Chronic systolic heart failure: Status: Chronic (4) Paroxysmal supraventricular tachycardia: Status: Chronic 02/03/24 170 Date Kyara Carlin Signature: Date (if applicable) CC: Normal [facility] CNPAbigail 01-22-2024 CNPN Telephone (HCSIND) ADI LUND ([id number]) 1945 M Date Time Provider Department 01/22/24 MARISELA IRVIN HCSIND During your visit today, we recorded the following information about you: Marisela Irvin LPN 01/22/2024 9:33 AM Signed [phone] VM full unable to leave message. [phone] wrong number (Gentleman stated that this was the [facility]) Marisela Irvin LPN Central Admissions Intake Nurse [...] INGUINAL,UNILATERAL( left) [K40.90] 03/05/2005 Parkinson disease (HCC) [G20.A1] 09/23/2021 Encounter Status:Closed by MARISELA IRVIN on 01/22/24 Normal [facility] Ankle 2 Viewson 01-21-2024 Ankle 2 Views [facility] Imaging Services [address] [place] [address] Ankle 2 Views MR#: [id number] Acct: [id number] Name: ADI LUND Rep #: [id number] : 1945 M 78 From: Roger Campuzano MD PCP: Dr. Juan Carlos Joel MD Status: ADM IN Study: Ankle 2 Views Date of Exam: 01/21/24 Exam# [id number] Ordering Dr: Nestor Leone DO [id number] STUDY: X-RAY - RIGHT ANKLE REASON FOR EXAM: Male, 78 years old. Persistent right ankle pain after fall. TECHNIQUE: 2 view(s) of the ankle. COMPARISON: None. FINDINGS: Osteopenia. Mild arthrosis of the tibiotalar joint. Mild arthrosis of the subtalar joint. Irregularity of the medial malleolus compatible with prior injury. Mild arthrosis of the midfoot. Normal soft tissues. RAD/Ankle 2 Views IMPRESSION: Osteopenia with osteoarthritic changes and irregularity of the medial malleolus. No acute finding. Electronically Signed: Roger Campuzano MD at 13:31 EDT , CC: Dr. Nestor Leone DO; Dr. Juan Carlos Joel MD Commodity Manager: Signed [facility] ADI LUND ([id number]) 1945 M Date Time Provider Department 01/21/24 MARISELA IRVIN During your visit today, we recorded the following information about you: Marisela Irvin LPN 01/21/2024 2:03 PM Signed Spoke to Val at Dr. Joel's office, she will confirm if the Doctor will follow and call back. Marisela Irvin LPN Central Admissions Intake Nurse Marisela Irvin LPN 01/22/2024 9:25 AM Signed Spoke to Ann who confirmed that Dr. Juna Carlos Joel will follow. Marisela Irvin LPN Central Admissions Intake Nurse Marisela Irvin LPN 01/23/2024 9:46 AM Signed Geovanny Turcios to informed her that I ahd spoken [...] INGUINAL,UNILATERAL( left) [K40.90] 03/05/2005 Parkinson disease (HCC) [G20.A1] 09/23/2021 Encounter Status:Closed by MARISELA IRVIN on 01/21/24 Normal [facility] Discharge Instructionon 01-04 Discharge Instruction [facility] Medical Records Department [address] [place] [address] Instructions for Home/Discharge Instructions 01/21/24 1424 MR#: [id number] Acct: [id number] Name: ADI LUND Rep #: [id number] : 1945 78 From: Nestor Leone DO PCP: Dr. Juan Carlos Joel MD Status:ADM IN Discharge Instructions Diet Discharge Diet: No restrictions Activity Discharge Activity: No Restrictions Follow Up Care Test Results: Test results from this visit will be discussed in further detail at your follow-up appointment, if applicable. Discharge Plan Admission Admit Date/Time: 01/19/24 14:11 Primary Reason for Your Visit: Episode of passing out Attending Provider: Nestor Leone Primary Care Provider: Juan Carlos Joel Consulting Providers: Noman Aldana Instructions Additional Instructions / Restrictions: Please take the lower doses of spironolactone and ramipril daily as noted below. Please take the low-dose Lasix once every other day as noted below. Stop taking the indapamide medication. Continue all other home medications as normal. You have bruising and swelling of the left knee likely due to falling when you passed out; you can use Tylenol, ice, heat and/or [id number] topical antiinflammatory medication to help with this. Home health care will also do therapy with you which will help your knee. Follow-up with your heart doctor in the office as previously scheduled. Discharge Orders/Prescriptions Prescriptions: New spironolactone 25 mg Tablet 12.5 mg PO DAILY 30 Days Qty: 15 2RF ramipril 1.25 mg Capsule 1.25 mg PO DAILY 30 Days Qty: 30 2RF furosemide [Lasix] 20 mg tablet 20 mg PO QODAY 30 Days Qty: 15 2RF Continued nitroglycerin 0.4 mg tablet, sublingual 0.4 mg SUBLINGUAL Q5M PRN (Reason: Chest Pain) Qty: 25 1RF ascorbic acid (vitamin C) 500 mg tablet 500 mg PO DAILY melatonin 10 mg tablet 10 mg PO HS PRN (Reason: insomnia) cholecalciferol (vitamin D3) 250 mcg (10,000 unit) capsule 250 mcg PO DAILY metoprolol succinate 50 mg tablet extended release 24 hr 25 mg PO DAILY tamsulosin 0.4 mg capsule 0.4 mg PO DAILY mirtazapine 30 mg tablet 30 mg PO DAILY finasteride 5 mg tablet 5 mg PO DAILY aspirin 81 MG tablet 81 mg PO DAILY@0800 carbidopa-levodopa 25-100 mg tablet 2 tab PO .qid Patient Comments: takes 2 tabs at 0900, 1300, 1700, 2100 atorvastatin 80 mg tablet 80 mg PO QHS albuterol sulfate 90 mcg/actuation HFA aerosol inhaler 2 puff INHALATION Q6H PRN (Reason: shortness of breath or wheezing) Qty: 6.7 0RF (DME) Handicap Placcard See Rx Instructions .Route .MEDSUPPLY Qty: 1 0RF Rx Instructions: Dx: Debility Exp: 07/2028 Discontinued ramipril 10 mg capsule 10 mg PO BID indapamide 1.25 mg tablet 1.25 mg PO QAM furosemide 40 mg tablet 20 mg PO DAILY Qty: 5 0RF spironolactone 25 mg tablet 25 mg PO DAILY Qty: 90 3RF Referrals / Follow Up: Juan Carlos Joel MD [Primary Care Provider] - Disposition Disposition (needs filled in before D/C Order can be placed): Home Health Service 01/21/24 1825 Nestor [facility] DO CC: Dr. JuanC arlos Joel MD; Dr. Noman Aldana MD Signed Normal [facility] Knee 1 or 2 Viewson 01-21-20 Knee 1 or 2 Views [facility] Imaging Services [address] [place] [address] Knee 1 or 2 Views MR#: [id number] Acct: [id number] Name: ADI LUND Rep #: [id number] : 1945 M 78 From: Roger Campuzano MD PCP: Dr. Juan Carlos Joel MD Status: ADM IN Study: Knee 1 or 2 Views Date of Exam: 01/21/24 Exam# [id number] Ordering Dr: Nestor Leone DO [id number] STUDY: X-RAY - LEFT KNEE REASON FOR EXAM: Male, 78 years old. Left knee pain after fall. TECHNIQUE: 2 view(s) of the knee. COMPARISON: None. FINDINGS: Osteopenia. Mild medial compartmental narrowing without osteophytes. Moderate narrowing of the lateral femorotibial compartment with osteophyte formation. Mild arthrosis of the patellofemoral compartment. Large joint effusion. Vascular calcification. Saphenous vein grafting clips. RAD/Knee 1 or 2 Views IMPRESSION: Osteopenia with tricompartmental arthrosis most marked laterally. Large joint effusion. Electronically Signed: Roger Campuzano MD at 13:28 EDT Reading Location ID and State: [facility] / [place] , Service support , CC: Dr. Nestor Leone DO; Dr. Juan Carlos Joel MD Commodity Manager: Signed Normal [facility] Basic Metabolic Profile (BMP )on 01-19-2024 BUN/CRE 38.5 RATIO High 10-20 [facility] Comment on above: Performed By: #### L 500.2500, L100.0100 ####[facility] [address] [place], [address] CA,Total 9.3 mg/dL Normal 8.5-10.1 [facility] Comment on above: Performed By: #### L 500.2500, L100.0100 ####[facility] [address] [place], [address] Chloride [Moles/Vol] 111 mmol/L High 98-107 [facility] Comment on above: Performed By: #### L 500.2500, L100.0100 ####[facility] [address] [place], [address] CO2 [Moles/Vol] 23.0 mmol/L Normal 21.0-32.0 [facility] Comment on above: Performed By: #### L 500.2500, L100.0100 ####[facility] [address] [place], [address] Creatinine [Mass/Vol] 1.22 mg/dL Normal 0.70-1.30 [facility] Comment on above: Result Comment: The validity of the calculated GFR GFRAA in patients over 70 years has not been determined. Clinical correlation is essential. Performed By: #### L 500.2500, L100.0100 ####[facility] [address] [place], [address] ECRCL 42.14 ml/min Normal [facility] Comment on above: Performed By: #### L 500.2500, L100.0100 ####[facility] [address] [place], [address] EST GFR - AA 73 mL/min Normal >60 [facility] Comment on above: Result Comment: Afri can Eritrean GFR Calc Performed By: #### L 500.2500, L100.0100 ####[facility] [address] [place], [address] GAP 5 Normal 5-15 [facility] Comment on above: Performed By: #### L 500.2500, L100.0100 ####[facility] [address] [place], [address] GFR/1.73 sq M.predicted among non-blacks MDRD (S/P/Bld) [Vol rate/Area] 61 mL/min/{1.73_m2} Normal >60 [facility] Comment on above: Result Comment: Non- GFR Calc Performed By: #### L 500.2500, L100.0100 ####[facility] [address] [place], [address] Glucose [Mass/Vol] 90 mg/dL Normal 74-106 [facility] Comment on above: Performed By: #### L 500.2500, L100.0100 ####[facility] [address] [place], [address] Potassium [Moles/Vol] 4.9 mmol/L Normal 3.5-5.1 [facility] Comment on above: Performed By: #### L 500.2500, L100.0100 ####[facility] [address] [place], [address] Sodium [Moles/Vol] 139 mmol/L Normal 136-145 [facility] Comment on above: Performed By: #### L 500.2500, L100.0100 ####[facility] [address] [place], [address] Urea nitrogen [Mass/Vol] 47 mg/dL High 7-18 [facility] Comment on above: Performed By: #### L 500.2500, L100.0100 ####[facility] [address] [place], [address] CBC W/Diff, Automatedon 01-04 Absolute Lymph 1.28 X10 3/uL Normal 0.83-4.51 [facility] Comment on above: Performed By: #### L 500.2500, L100.0100 ####[facility] [address] [place], [address] Absolute Neut 6.1 X10 3/uL Normal 2.0-7.7 [facility] Comment on above: Performed By: #### L 500.2500, L100.0100 ####[facility] [address] [place], [address] Basophils/100 WBC (Bld) 0.6 % Normal 0-1 [facility] Comment on above: Performed By: #### L 500.2500, L100.0100 ####[facility] [address] [place], [address] Eosinophils/100 WBC (Bld) 1.3 % Normal 0-5 [facility] Comment on above: Performed By: #### L 500.2500, L100.0100 ####[facility] [address] [place], [address] Erythrocyte distribution width (RBC) [Ratio] 12.8 % Normal 11.6-14.6 [facility] Comment on above: Performed By: #### L 500.2500, L100.0100 ####[facility] [address] [place], [address] Hematocrit (Bld) [Volume fraction] 32.2 % Low 40-54 [facility] Comment on above: Performed By: #### L 500.2500, L100.0100 ####[facility] [address] [place], [address] Hemoglobin (Bld) [Mass/Vol] 10.7 g/dL Low 13.0-16.5 [facility] Comment on above: Performed By: #### L 500.2500, L100.0100 ####[facility] [address] [place], [address] IG% 0.500 Normal 0.0-0.9 [facility] Comment on above: Result Comment: IG% - Immature Granulocytes (promyelocytes, myelocytes and metamyelocytes) > 1% indicates that a LEFT SHIFT is Present. Performed By: #### L 500.2500, L100.0100 ####[facility] [address] [place], [address] Lymphocytes/100 WBC (Bld) 15.1 % Low 19-41 [facility] Comment on above: Performed By: #### L 500.2500, L100.0100 ####[facility] [address] [place], [address] MCH (RBC) [Entitic mass] 32.9 pg High 27.0-32.0 [facility] Comment on above: Performed By: #### L 500.2500, L100.0100 ####[facility] [address] [place], [address] MCHC (RBC) [Mass/Vol] 33.2 g/dL Normal 32-36 [facility] Comment on above: Performed By: #### L 500.2500, L100.0100 ####[facility] [address] [place], [address] MCV (RBC) [Entitic vol] 99.1 fL High 80-94 [facility] Comment on above: Performed By: #### L 500.2500, L100.0100 ####[facility] [address] [place], [address] Monocytes/100 WBC (Bld) 10.4 % High 0-10 [facility] Comment on above: Performed By: #### L 500.2500, L100.0100 ####[facility] [address] [place], [address] Neutrophils/100 WBC (Bld) 72.1 % High 47-70 [facility] Comment on above: Performed By: #### L 500.2500, L100.0100 ####[facility] [address] [place], [address] Nucleated RBC (Bld) [#/Vol] 0 10*3/uL Normal 0-5 [facility] Comment on above: Performed By: #### L 500.2500, L100.0100 ####[facility] [address] [place], [address] Platelet mean volume (Bld) [Entitic vol] 8.9 fL Normal 6.2-12.0 [facility] Comment on above: Performed By: #### L 500.2500, L100.0100 ####[facility] [address] [place], [address] Platelets (Bld) [#/Vol] 178 10*3/uL Normal 150-450 [facility] Comment on above: Performed By: #### L 500.2500, L100.0100 ####[facility] [address] [place], [address] RBC (Bld) [#/Vol] 3.25 10*6/uL Low 4.6-6.2 [facility] Comment on above: Performed By: #### L 500.2500, L100.0100 ####[facility] [address] [place], [address] RDW SD 46.2 fl High 35.1-43.9 [facility] Comment on above: Performed By: #### L 500.2500, L100.0100 ####[facility] [address] [place], [address] WBC (Bld) [#/Vol] 8.5 10*3/uL Normal 4.4-11.0 [facility] Comment on above: Performed By: #### L 500.2500, L100.0100 ####[facility] [address] [place], [address] 12 Lead EKGon 01-18-2024 12 Lead EKG [facility] Cardiovascular Services [address] [place] [address] 12 Lead EKG 01/18/24 1504 MR#: [id number] Acct: [id number] Name: ADI LUND Rep #: [id number] : 1945 78 From: Julius Fontenot MD Attending Dr: Dr. Nestor Leone, DO Status : ADM IN Ordering Dr: Ludwin Ballesteros DO Date: 01/18/24 Location: [facility] Sex: M C Admitted: 01/19/24 Test Reason : SYNCOPE Blood Pressure : / mmHG Vent. Rate : 060 BPM Atrial Rate : 060 BPM P-R Int : 142 ms QRS Dur : 206 ms QT Int : 528 ms P-R-T Axes : 000 245 070 degrees QTc Int : 528 ms AV dual-paced rhythm Abnormal ECG Confirmed by Julius Fontenot ([id number]), editor producer VIOLETA EDUARDO ([id number]) on 01/20/2024 10:24:59 AM Referred By: TA/LOUIS Confirmed By:Julius Fontenot 01/20/24 1025 Date Julius Fontenot MD CC: Dr. Nsetor Leone DO; Dr. Juan Carlos Joel MD; Dr. Ludwin Ballesteros DO Signed Normal [facility] BNP,B-Type NATRIURETIC PEPTI Xiomara 01-18-2024 Natriuretic peptide B (Bld) [Mass/Vol] 58.4 pg/mL Normal 0-100 [facility] Comment on above: Performed By: #### L 400.0001 #### [facility] [address] [place], [place], [address] Basic Metabolic Profile (BMP )on 01-18-2024 BUN/CRE 30.1 RATIO High 10-20 [facility] Comment on above: Order Comment: ANABELLA TER SPECIMEN Performed By: #### L 400.0001 #### [facility] [address] [place], [address] CA,Total 9.3 mg/dL Normal 8.5-10.1 [facility] Comment on above: Order Comment: ANABELLA TER SPECIMEN Performed By: #### L 400.0001 #### [facility] [address] [place], [address] Chloride [Moles/Vol] 108 mmol/L High 98-107 [facility] Comment on above: Order Comment: ANABELLA TER SPECIMEN Performed By: #### L 400.0001 #### [facility] [address] [place], [address] CO2 [Moles/Vol] 20.0 mmol/L Low 21.0-32.0 [facility] Comment on above: Order Comment: ANABELLA TER SPECIMEN Performed By: #### L 400.0001 #### [facility] [address] [place], [address] Creatinine [Mass/Vol] 1.83 mg/dL High 0.70-1.30 [facility] Comment on above: Order Comment: ANABELLA TER SPECIMEN Result Comment: The validity of the calculated GFR GFRAA in patients over 70 years has not been determined. Clinical correlation is essential. Performed By: #### L 400.0001 #### [facility] [address] [place], [address] ECRCL 30.22 ml/min Normal [facility] Comment on above: Order Comment: ANABELLA TER SPECIMEN Performed By: #### L 400.0001 #### [facility] [address] [place], [address] EST GFR - AA 46 mL/min Low >60 [facility] Comment on above: Order Comment: ANABELLA TER SPECIMEN Result Comment: Afri can Eritrean GFR Calc Performed By: #### L 400.0001 #### [facility] [address] [place], [address] GAP 10 Normal 5-15 [facility] Comment on above: Order Comment: ANABELLA TER SPECIMEN Performed By: #### L 400.0001 #### [facility] [address] [place], [address] GFR/1.73 sq M.predicted among non-blacks MDRD (S/P/Bld) [Vol rate/Area] 38 mL/min/{1.73_m2} Low >60 [facility] Comment on above: Order Comment: ANABELLA TER SPECIMEN Result Comment: Non- GFR Calc Performed By: #### L 400.0001 #### [facility] [address] [place], [address] Glucose [Mass/Vol] 139 mg/dL High 74-106 [facility] Comment on above: Order Comment: ANABELLA TER SPECIMEN Result Comment: Fast ing Glucose result greater than or equal to 126 mg/dL suggests DIABETES MELLITUS per A.D.A. criteria. Performed By: #### L 400.0001 #### [facility] [address] [place], [address] Potassium [Moles/Vol] 4.2 mmol/L Normal 3.5-5.1 [facility] Comment on above: Order Comment: ANABELLA TER SPECIMEN Performed By: #### L 400.0001 #### [facility] [address] [place], [address] Sodium [Moles/Vol] 138 mmol/L Normal 136-145 [facility] Comment on above: Order Comment: ANABELLA TER SPECIMEN Performed By: #### L 400.0001 #### [facility] [address] [place], [address] Urea nitrogen [Mass/Vol] 55 mg/dL High 7-18 [facility] Comment on above: Order Comment: ANABELLA TER SPECIMEN Performed By: #### L 400.0001 #### [facility] [address] [place], [address] CBC-Complete Blood Cnt No Di ffon 01-18-2024 Erythrocyte distribution width (RBC) [Ratio] 12.9 % Normal 11.6-14.6 [facility] Comment on above: Performed By: #### L 400.0001 #### [facility] [address] [place], [address] Hematocrit (Bld) [Volume fraction] 30.3 % Low 40-54 [facility] Comment on above: Performed By: #### L 400.0001 #### [facility] [address] [place], [address] Hemoglobin (Bld) [Mass/Vol] 10.6 g/dL Low 13.0-16.5 [facility] Comment on above: Performed By: #### L 400.0001 #### [facility] [address] [place], [address] MCH (RBC) [Entitic mass] 33.7 pg High 27.0-32.0 [facility] Comment on above: Performed By: #### L 400.0001 #### [facility] [address] [place], [address] MCHC (RBC) [Mass/Vol] 35.0 g/dL Normal 32-36 [facility] Comment on above: Performed By: #### L 400.0001 #### [facility] [address] [place], [address] MCV (RBC) [Entitic vol] 96.2 fL High 80-94 [facility] Comment on above: Performed By: #### L 400.0001 #### [facility] [address] [place], [address] Platelet mean volume (Bld) [Entitic vol] 9.5 fL Normal 6.2-12.0 [facility] Comment on above: Performed By: #### L 400.0001 #### [facility] [address] [place], [address] Platelets (Bld) [#/Vol] 177 10*3/uL Normal 150-450 [facility] Comment on above: Performed By: #### L 400.0001 #### [facility] [address] [place], [address] RBC (Bld) [#/Vol] 3.15 10*6/uL Low 4.6-6.2 [facility] Comment on above: Performed By: #### L 400.0001 #### [facility] [address] [place], [address] RDW SD 45.4 fl High 35.1-43.9 [facility] Comment on above: Performed By: #### L 400.0001 #### [facility] [address] [place], [address] WBC (Bld) [#/Vol] 6.4 10*3/uL Normal 4.4-11.0 [facility] Comment on above: Performed By: #### L [id number] #### [facility] [address] [place], [address] Chest 1 View (Portable)on Chest 1 View (Portable) [facility] [address] [place] [address] Chest 1 View (Portable) MR#: [id number] Acct: [id number] Name: ADI LUND Rep #: [id number] : 1945 M 78 From: Mynor Xie MD PCP: Dr. Juan Carlos Joel MD Status: REG ER Study: Chest 1 View (Portable) Date of Exam: 01/18/24 Exam# [id number] Ordering Dr: Ludwin Ballesteros DO [id number] EXAM: XR CHEST, 1 VIEW CLINICAL INDICATION: shortness of breath TECHNIQUE: Frontal view of the chest. COMPARISON: 06/24/2023 FINDINGS: LUNGS AND PLEURAL SPACES: Unremarkable. No consolidation or edema. No pneumothorax. No effusion. HEART: Unremarkable. Cardiac silhouette not enlarged. MEDIASTINUM: Central airways and mediastinal contour are unremarkable. BONES/JOINTS: Surgical clips and median sternotomy wires are present. No acute fracture. SOFT TISSUES: Unremarkable. TUBES, LINES AND DEVICES: Left-sided pacemaker is in place. RAD/Chest 1 View (Portable) IMPRESSION: No change in the appearance the chest from the reference exam. No acute pulmonary abnormality. Electronically Signed: Mynor Xie MD at 16:17 EDT , CC: Dr. Juan Carlos Joel MD; Dr. Ludwin Ballesteros DO Commodity Manager: Signed Normal [facility] Emergency Department Summary on 01-18-2024 Emergency Department Summary [facility] Medical Records Department [address] [place] [address] Emergency Department Summary 01/18/24 MR#: [id number] Acct: [id number] Name: ADI LUND Rep #: [id number] : 1945 78 From: Ludwin Ballesteros DO PCP: Dr. 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-P) Parkinson's disease Mixed hyperlipidemia Abnormal echocardiogram Nonrheumatic mitral (valve) prolapse Presence of stent in coronary artery ( 03/21/10) Essential hypertension Paroxysmal supraventricular tachycardia Chest discomfort Fatigue Angina pectoris Atherosclerotic heart disease of [place] coronary artery without angina pectoris Ischemic cardiomyopathy Left bundle branch block Chronic systolic heart failure Murmur [facility] use of drug Abnormal electrocardiogram Nonspecific abnormal unspecified cardiovascular function study Paroxysmal supraventricular tachycardia by electrocardiogram (ECG) Home Medications ???Medication ???Instructions ???Recorded ???Last Taken ???Type aspirin 81 mg tablet,delayed 81 mg PO DAILY@0800 04/21/13 12/30/23 History release nitroglycerin 0.4 mg sublingual 0.4 mg sublingual Q5M PRN Chest 06/12/19 Unknown Rx tablet Pain #25 tabs albuterol sulfate 90 mcg/actuation 2 puff inhalation Q6H PRN 01/27/20 Unknown Rx aerosol inhaler shortness of breath or wheezing #6.7 grams ascorbic acid (vitamin C) 500 mg 500 mg PO DAILY 10/31/20 Unknown History tablet melatonin 10 mg tablet 10 mg PO HS PRN insomnia 10/23/21 Unknown History cholecalciferol (vitamin D3) 250 250 mcg PO DAILY 05/28/22 Unknown History mcg (10,000 unit) capsule atorvastatin 80 mg tablet See Rx Instructions .Route 05/17/23 Unknown Rx .COMPLEX #90 tabs carbidopa 25 mg-levodopa 100 mg 2 tab PO .qid 06/25/23 12/31/23 History tablet metoprolol succinate 50 mg 25 mg PO DAILY 06/25/23 12/31/23 History tablet,extended release 24 hr ramipril 10 mg capsule 10 mg PO BID 06/25/23 12/31/23 History Handicap Placcard #1 ea 07/25/23 Unknown Rx spironolactone 25 mg tablet 25 mg PO DAILY #90 tabs 10/15/23 Unknown Rx finasteride 5 mg tablet 5 mg PO DAILY 12/19/23 12/31/23 History furosemide 40 mg tablet 20 mg (1/2 x 40 mg) PO DAILY #5 12/19/23 12/31/23 Rx tabs indapamide 1.25 mg tablet 1.25 mg PO QAM 12/19/23 12/31/23 History mirtazapine 30 mg tablet 30 mg PO DAILY 12/19/23 Unknown History tamsulosin 0.4 mg capsule 0.4 mg PO DAILY 12/19/23 Unknown History Allergy/AdvReac Type Severity Reaction Status Date / Time adhesive tape Allergy NEEDS Verified 12/19/23 14:32 FOLLOW-UP Family History Mother Hypertension Father COPD (chronic obstructive pulmonary disease) CAD (coronary artery disease) Hx CABG CVA (cerebral vascular accident) Brother CAD (coronary artery disease) Diabetes Hypertension Sister Hypertension Son HLD (hyperlipidemia) Other Heart disease Surgical History (Updated 01/16/24 @ 16:14 by Kyara Santiago) History of open reduction and internal fixation (ORIF) procedure ( 1979) History of bilateral inguinal hernia repair History of right hip replacement History of percutaneous transluminal coronary angioplasty ( 03/21/10) S/P implantation of automatic cardioverter/defibri llator (AICD) Aortocoronary bypass status ( 01/23/95) Social History Smoking Status: Never smoker alcohol intake: never substance use type: does not use caffeine: Yes Type: carbonated beverages Number of servings: 1 what type of physical activity do you participate in: none seatbelt use: always do you feel safe at home: Yes EXAM Physical Exam Const Vital Signs: 01/18/24 15:05 01/18/24 15:05 01/18/24 17:02 Temperature 97.6 F L Temperature Source Oral Pulse Rate 60 73 Respiratory Rate 17 15 Blood Pressure 96/53 L 102/46 L Blood Pressure Mean 67 64 Pulse Ox 100 Oxygen Delivery Method Room Air MDM MDM MDM Narrative Medical decision making narrative: HISTORY OF PRESENT ILLNESS: 78-year-old male history of pacemaker, ischemic cardiopathy, CABG, AICD, stents, presents with syncope. Patient states he was out in the sun today notes he was slightly warm. Notes he felt diffusely weak and then passed out. There is no trauma reported no head trauma. Notes recently he has not been eating as well as he should. Denies trouble with urination. Denies chest pain. Denies shortness of breath. Denies palpitations. Denies any pacemaker shocks. Denies cough fever chills. Denies any bleeding diathesis. (more content not included)... Normal [facility] H AND P Exam - Hospitaliston 01-18-2024 H&P Exam - Hospitalist [facility] Medical Records Department [address] [place] [address] H P Exam - Hospitalist 01/18/241935 MR#: [id number] Acct: [id number] Name: ADI LUND Rep #: [id number] : 1945 78 From: Noman Aldana MD PCP: Dr. Juan Carlos Joel MD Status:ADM JOSE ANTONIO Location: [place] [address] HPI - General General Date of Admission: 01/18/24 HPI Narrative ADI LUND, is a 78 M who presents to the hospital after syncopal episode at home. He was not feeling unwell prior to syncopal episode but he was sitting outside in the sun and was not staying very well-hydrated, he does have a history of systolic heart failure and is on diuretics. After sitting about 2 hours they went to get him up to move him into the shade and that is when he passed out upon standing. He does have a history of a pacemaker that was recently changed and in the ER his pacemaker was interrogated and was negative for any kind of arrhythmias. He does have an CHRIS with a creatinine of 1.83 with a baseline of around 1.1 he was given some fluid in the ER and is feeling a little bit better. [facility] Medical History (Updated 01/18/24 @ 19:[address] 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 Abnormal electrocardiogram Nonspecific abnormal unspecified cardiovascular function study Paroxysmal supraventricular tachycardia by electrocardiogram (ECG) Home Medications ???Medication ???Instructions ???Recorded ???Last Taken ???Type aspirin 81 mg tablet,delayed 81 mg PO DAILY@0800 04/21/13 12/30/23 History release nitroglycerin 0.4 mg sublingual 0.4 mg sublingual Q5M PRN Chest 06/12/19 Unknown Rx tablet Pain #25 tabs albuterol sulfate 90 mcg/actuation 2 puff inhalation Q6H PRN 01/27/20 Unknown Rx aerosol inhaler shortness of breath or wheezing #6.7 grams ascorbic acid (vitamin C) 500 mg 500 mg PO DAILY 10/31/20 Unknown History tablet melatonin 10 mg tablet 10 mg PO HS PRN insomnia 10/23/21 Unknown History cholecalciferol (vitamin D3) 250 250 mcg PO DAILY 05/28/22 Unknown History mcg (10,000 unit) capsule atorvastatin 80 mg tablet See Rx Instructions .Route 05/17/23 Unknown Rx .COMPLEX #90 tabs carbidopa 25 mg-levodopa 100 mg 2 tab PO .qid 06/25/23 12/31/23 History tablet metoprolol succinate 50 mg 25 mg PO DAILY 06/25/23 12/31/23 History tablet,extended release 24 hr ramipril 10 mg capsule 10 mg PO BID 06/25/23 12/31/23 History Handicap Placcard #1 ea 07/25/23 Unknown Rx spironolactone 25 mg tablet 25 mg PO DAILY #90 tabs 10/15/23 Unknown Rx finasteride 5 mg tablet 5 mg PO DAILY 12/19/23 12/31/23 History furosemide 40 mg tablet 20 mg (1/2 x 40 mg) PO DAILY #5 12/19/23 12/31/23 Rx tabs indapamide 1.25 mg tablet 1.25 mg PO QAM 12/19/23 12/31/23 History mirtazapine 30 mg tablet 30 mg PO DAILY 12/19/23 Unknown History tamsulosin 0.4 mg capsule 0.4 mg PO DAILY 12/19/23 Unknown History Allergy/AdvReac Type Severity Reaction Status Date / Time adhesive tape Allergy NEEDS Verified 12/19/23 14:32 FOLLOW-UP Family History Mother Hypertension Father COPD (chronic obstructive pulmonary disease) CAD (coronary artery disease) Hx CABG CVA (cerebral vascular accident) Brother CAD (coronary artery disease) Diabetes Hypertension Sister Hypertension Son HLD (hyperlipidemia) Other Heart disease Surgical History (Updated 01/16/24 @ 16:14 by Kyara Santiago) History of open reduction and internal fixation (ORIF) procedure ( 1979) History of bilateral inguinal hernia repair History of right hip replacement History of percutaneous transluminal coronary angioplasty ( 03/21/10) S/P implantation of automatic cardioverter/defibri llator (AICD) Aortocoronary bypass status ( 01/23/95) Social History Smoking Status: Never smoker alcohol intake: never substance use type: does not use caffeine: Yes Type: carbonated beverages Number of servings: 1 what type of physical activity do you participate in: none seatbelt use: always do you feel safe at home: Yes ROS Constitutional Constitutional: Denies chills, fatigue, fever(s) or malaise Eyes Eyes: Denies blurry vision ENT HEENT: Denies headache(s) or nasal discharge Cardiovascular Cardiovascular: (more content not included)... Normal [facility] L501.4020on 01-18-2024 TROPONIN-I HS 27 pg/mL Normal 3.0-78.0 [facility] Comment on above: Result Comment: Plea se Note: New Test Units and Gender Specific Reference Ranges. For more information see Policy Stat Procedure [place] High Sensitivity Troponin (TNIH) and attachments. Performed By: #### L 501.4020 ####[facility] [address] [place], [address] L501.5425on 01-18-2024 TROPONIN-I HS 17 pg/mL Normal 3.0-78.0 [facility] Comment on above: Order Comment: COLLE CTOR TO SPECIFY Result Comment: Plea se Note: New Test Units and Gender Specific Reference Ranges. For more information see Policy Stat Procedure [place] High Sensitivity Troponin (TNIH) and attachments. Performed By: #### L [id number] #### [facility] [address] [place], [address] Urinalysis, Completeon 01-17 BACTERIA 0 SEEN Normal None Seen [facility] Comment on above: Order Comment: ROBER CTOR TO SPECIFY Performed By: #### L 400.0001 #### [facility] [address] [place], [address] EPI,SQUAMOUS 0 SEEN Normal 0-5 [facility] Comment on above: Order Comment: ROBER CTOR TO SPECIFY Performed By: #### L 400.0001 #### [facility] [address] [place], [address] Mucus Ql (Urine sed) 0 SEEN Normal [facility] Comment on above: Order Comment: ROBER CTOR TO SPECIFY Performed By: #### L 400.0001 #### [facility] [address] [place], [address] RBC 0 SEEN Normal 0-5 [facility] Comment on above: Order Comment: ROBER CTOR TO SPECIFY Performed By: #### L 400.0001 #### [facility] [address] [place], [address] WBC 0 SEEN Normal 0-5 [facility] Comment on above: Order Comment: ROBER CTOR TO SPECIFY Performed By: #### L 400.0001 #### [facility] [address] [place], [address] Pacemaker Checkon 01-16-2024 Pacemaker Check [facility] [place] [facility] [address] [place] [address] Pacemaker Check Date of Service: 01/16/24 1611 MR#: [id number] Acct: [id number] Name: ADI LUND Rep #: [id number] : 1945 From: Kyara Santiago Age/Sex: 78/M Location: [facility] Status: Signed Billing Codes PM Device Codes: 29425 PM Dev Prog Eval, Multi Assessment and Plan Assessment and Plan (1) Ischemic cardiomyopathy: Status: Chronic (2) Paroxysmal supraventricular tachycardia: Status: Chronic (3) Left bundle branch block: Status: Chronic (4) Presence of cardiac resynchronization therapy pacemaker (BONE CHAR OPERATOR-P): Status: Chronic Comment: BONE CHAR OPERATOR-D( normal battery depletion) changed out for BONE CHAR OPERATOR-P on 12/31/23 @ [facility] 01/16/24 1614 Date Kyara Carlin Signature: Date (if applicable) CC: Normal [facility] Absolute lymphocyte countOrd ered By: Juan Carlos Joel on 08-08-2023 Lymphocytes Auto (Unsp spec) [#/Vol] 1.08 10*3/uL 0.83-4.51 [facility] Albumin Elph [Mass/Vol]Order ed By: Juan Carlos Joel on 08-08-2023 Albumin [Mass/Vol] 3.7 g/dL 2.9-4.4 [facility] Automated lymphocyte count a s percentage of total leukocytesOrdered By: Juan Carlos Joel on 08-08-2023 Lymphocytes/100 WBC Auto (Unsp spec) 15.1 % 19-41 [facility] Basophil percentageOrdered B y: Juan Carlos Joel on 08-08-2023 Basophils/100 WBC (Bld) 0.6 % 0-1 [facility] Bilirubin [Mass/Vol] 0.80 mg/dL 0.20-1.00 [facility] Comment on above: For patients on eltr ombopag therapy, use of Dimension [place] TBIL is not recommended. Chloride [Moles/Vol] 108 mmol/L 98-107 [facility] Eosinophils/100 WBC (Bld) 1.3 % 0-5 [facility] Glucose [Mass/Vol] 96 mg/dL 74-106 [facility] Hemoglobin (Bld) [Mass/Vol] 12.7 g/dL 13.0-16.5 [facility] Monocytes/100 WBC (Bld) 8.6 % 0-10 [facility] Neutrophils (Bld) [#/Vol] 5.3 10*3/uL 2.0-7.7 [facility] Neutrophils/100 WBC (Bld) 74.1 % 47-70 [facility] Potassium [Moles/Vol] 4.6 mmol/L 3.5-5.1 [facility] Protein [Mass/Vol] 6.8 g/dL 6.4-8.2 [facility] Sodium [Moles/Vol] 139 mmol/L 136-145 [facility] WBC (Bld) [#/Vol] 7.2 10*3/uL 4.4-11.0 [facility] Determination of erythrocyte mean corpuscular volume (MCV)Ordered By: Juan Carlos Joel on 08-08-2023 MCV (RBC) [Entitic vol] 97.8 fL 80-94 [facility] Erythrocyte distribution wid th ratioOrdered By: Juan Carlos Joel on 08-08-2023 Erythrocyte distribution width (RBC) [Ratio] 14.0 % 11.6-14.6 [facility] Erythrocyte distribution wid th standard deviationOrdered By: Juan Carlos Joel on 08-08-2023 Erythrocyte distribution width (RBC) [Entitic vol] 50.4 fL 35.1-43.9 [facility] Hematocrit Auto (Bld) [Volum e fraction]Ordered By: Juan Carlos Joel on 08-08-2023 Hematocrit (Bld) [Volume fraction] 39.7 % 40-54 [facility] Immature granulocytes/100 WB C Auto (Bld)Ordered By: Juan Carlos Joel on 08-08-2023 Immature granulocytes/100 WBC (Bld) 0.300 % 0.0-0.9 [facility] Comment on above: IG% - Immature Granu locytes (promyelocytes, myelocytes and metamyelocytes) > 1% indicates that a LEFT SHIFT is Present. Laboratory - Chemistry and C hemistry - challengeOrdered By: Juan Carlos Joel on 08-08-2023 Albumin/Globulin [Mass ratio] 1.2 {ratio} 0.9-2.4 [facility] ALP [Catalytic activity/Vol] 110 U/L 45-117 [facility] ALT [Catalytic activity/Vol] 16 U/L 16-61 [facility] CO2 [Moles/Vol] 25.0 mmol/L 21.0-32.0 [facility] Cobalamin (Vitamin B12) [Mass/Vol] 535 pg/mL 211-911 [facility] Globulin (S) [Mass/Vol] 3.1 g/dL 2.2-4.2 [facility] Urea nitrogen/Creatinine [Mass ratio] 24.3 mg/mg 10-20 [facility] - Hematology and Cell countsOrdered By: Juan Carlos Joel on 08-08-2023 MCH (RBC) [Entitic mass] 31.3 pg 27.0-32.0 [facility] MCHC (RBC) [Mass/Vol] 32.0 g/dL 32-36 [facility] Nucleated RBC/100 WBC (Bld) [Ratio] 0 % 0-5 [facility] Platelet mean volume (Bld) [Entitic vol] 9.6 fL 6.2-12.0 [facility] Platelets (Bld) [#/Vol] 194 10*3/uL 150-450 [facility] No Panel InformationOrdered By: Juan Carlos Joel on 08-08-2023 Addendum Document Comment . [facility] Comment on above: The SPE pattern appe ars unremarkable. Evidence ofmonoclonal protein is not apparent.Performed at: [address] [id number] Director: Pepe Finnegan PhD, Phone: [phone] Zqxyd-0-Mlseyelnh 0.2 g/dL 0.0-0.4 [facility] Bllqu-1-Pordlaspp 0.6 g/dL 0.4-1.0 [facility] Estimated GFR (MDRD) Amer 109 mL/min >60 [facility] Comment on above: GFR Calc Estimated GFR (MDRD) Non-Af Amer 90 mL/min >60 [facility] Comment on above: Non- GFR Calc Folate 27.50 ng/mL 3.1-55.4 [facility] Gamma Globulins 1.0 g/dL 0.4-1.8 [facility] Protein Fractions Elph [Inte rp]Ordered By: Juan Carlos Joel on 08-08-2023 Protein Fractions [Interp] Comment . [facility] Comment on above: Protein electrophore sis scan will follow via computer,mail, or dairy management specialist delivery. RBC Auto (Bld) [#/Vol]Ordere d By: Juan Carlos Joel on 08-08-2023 RBC (Bld) [#/Vol] 4.06 10*6/uL 4.6-6.2 [facility] Serum albumin to globulin ra katie by protein electrophoresisOrdered By: Juan Carlos Joel on 08-08-2023 Albumin/Globulin Elph [Mass ratio] 1.3 0.7-1.7 [facility] Serum globulin measurement ( mass/volume)Ordered By: Juan Carlos Joel on 08-08-2023 Globulin (S) [Mass/Vol] 2.8 g/dL 2.2-3.9 [facility] Serum or plasma beta globuli n measurement by electrophoresis (mass/volume)Ordered By: Juan Carlos oJel on 08-08-2023 Beta globulin Elph [Mass/Vol] 1.0 g/dL 0.7-1.3 [facility] Serum or plasma calcium jennifer urement (mass/volume)Ordered By: Juan Carlos Joel on 08-08-2023 Calcium [Mass/Vol] 9.3 mg/dL 8.5-10.1 [facility] Serum or plasma creatinine m easurement (mass/volume)Ordered By: Juan Carlos Joel on 08-08-2023 Creatinine [Mass/Vol] 0.86 mg/dL 0.70-1.30 [facility] Comment on above: The validity of the calculated GFR & GFRAA in patients over 70 years has not been determined. Clinical correlation is essential. Serum or plasma protein mono clonal measurement by electrophoresis (mass/volume)Ordered By: Juan Carlos Joel on 08-08-2023 Protein.monoclonal Elph [Mass/Vol] Not Observed g/dL Not Observed [facility] Serum or plasma thyroid stim ulating hormone (TSH) measurement (units/volume)Ordered By: Juan Carlos Joel on 08-08-2023 TSH Qn 1.02 uIU/mL 0.358-3.74 [facility] Serum or plasma urea nitroge n measurement (mass/volume)Ordered By: Juan Carlos Joel on 08-08-2023 Urea nitrogen [Mass/Vol] 21 mg/dL 7-18 [facility] Thin prep Papanicolaou smear with manual screeningOrdered By: Juan Carlos Joel on 08-08-2023 Thin prep Papanicolaou smear with manual screening 3.7 g/dL 3.2-5.0 [facility] Thin prep Papanicolaou smear with manual screening 19 U/L 15-37 [facility] Thin prep Papanicolaou smear with manual screening 6 5-15 [facility] Total protein bloodOrdered B y: Juan Carlos Joel on 08-08-2023 Protein [Mass/Vol] 6.5 g/dL 6.0-8.5 [facility] Basophil percentageOrdered B y: Pamela Mackenzie on 07-15-2023 Chloride [Moles/Vol] 108 mmol/L 98-107 [facility] Glucose [Mass/Vol] 114 mg/dL 74-106 [facility] Comment on above: Fasting Glucose resu lt from 100 to 125 mg/dL suggests IMPAIRED HOMEOSTASIS per A.D.A. criteria. Potassium [Moles/Vol] 4.2 mmol/L 3.5-5.1 [facility] Sodium [Moles/Vol] 140 mmol/L 136-145 [facility] - Chemistry and C hemistry - challengeOrdered By: Pamela Mackenzie on 07-15-2023 CO2 [Moles/Vol] 28.0 mmol/L 21.0-32.0 [facility] Urea nitrogen/Creatinine [Mass ratio] 31.4 mg/mg 10-20 [facility] No Panel InformationOrdered By: Pamela Mackenzie on 07-15-2023 Estimated GFR (MDRD) Amer 94 mL/min >60 [facility] Comment on above: GFR Calc Estimated GFR (MDRD) Non-Af Amer 78 mL/min >60 [facility] Comment on above: Non- GFR Calc Serum or plasma calcium jennifer urement (mass/volume)Ordered By: Pamela Mackenzie on 07-15-2023 Calcium [Mass/Vol] 9.3 mg/dL 8.5-10.1 [facility] Serum or plasma creatinine m easurement (mass/volume)Ordered By: Pamela Mackenzie on 07-15-2023 Creatinine [Mass/Vol] 0.99 mg/dL 0.70-1.30 [facility] Comment on above: The validity of the calculated GFR & GFRAA in patients over 70 years has not been determined. Clinical correlation is essential. Serum or plasma urea nitroge n measurement (mass/volume)Ordered By: Pamela Mackenzie on 07-15-2023 Urea nitrogen [Mass/Vol] 31 mg/dL 7-18 [facility] Thin prep Papanicolaou smear with manual screeningOrdered By: Pamela Mackenzie on 07-15-2023 Thin prep Papanicolaou smear with manual screening 4 5-15 [facility] Absolute lymphocyte countOrd ered By: Pamela Mackenzie on 06-24-2023 Lymphocytes Auto (Unsp spec) [#/Vol] 1.13 10*3/uL 0.83-4.51 [facility] Automated lymphocyte count a s percentage of total leukocytesOrdered By: Pamela Mackenzie on 06-24-2023 Lymphocytes/100 WBC Auto (Unsp spec) 18.9 % 19-41 [facility] Basophil percentageOrdered B y: Pamela Mackenzie on 06-24-2023 Basophils/100 WBC (Bld) 0.3 % 0-1 [facility] Bilirubin [Mass/Vol] 0.90 mg/dL 0.20-1.00 [facility] Comment on above: For patients on eltr ombopag therapy, use of Dimension [place] TBIL is not recommended. Chloride [Moles/Vol] 112 mmol/L 98-107 [facility] Eosinophils/100 WBC (Bld) 2.2 % 0-5 [facility] Glucose [Mass/Vol] 101 mg/dL 74-106 [facility] Comment on above: Fasting Glucose resu lt from 100 to 125 mg/dL suggests IMPAIRED HOMEOSTASIS per A.D.A. criteria. Hemoglobin (Bld) [Mass/Vol] 12.5 g/dL 13.0-16.5 [facility] Monocytes/100 WBC (Bld) 9.7 % 0-10 [facility] [facility] Neutrophils (Bld) [#/Vol] 4.1 10*3/uL 2.0-7.7 [facility] Neutrophils/100 WBC (Bld) 68.2 % 47-70 [facility] Potassium [Moles/Vol] 4.4 mmol/L 3.5-5.1 [facility] Protein [Mass/Vol] 6.8 g/dL 6.4-8.2 [facility] Sodium [Moles/Vol] 141 mmol/L 136-145 [facility] WBC (Bld) [#/Vol] 6.0 10*3/uL 4.4-11.0 [facility] Determination of erythrocyte mean corpuscular volume (MCV)Ordered By: Pamela Mackenzie on 06-24-2023 MCV (RBC) [Entitic vol] 98.2 fL 80-94 [facility] Erythrocyte distribution wid th ratioOrdered By: Pamela Mackenzie on 06-24-2023 Erythrocyte distribution width (RBC) [Ratio] 13.7 % 11.6-14.6 [facility] Erythrocyte distribution wid th standard deviationOrdered By: Pamela Mackenzie on 06-24-2023 Erythrocyte distribution width (RBC) [Entitic vol] 48.9 fL 35.1-43.9 [facility] Hematocrit Auto (Bld) [Volum e fraction]Ordered By: Pamela Mackenzie on 06-24-2023 Hematocrit (Bld) [Volume fraction] 38.4 % 40-54 [facility] Immature granulocytes/100 WB C Auto (Bld)Ordered By: Pamela Mackenzie on 06-24-2023 Immature granulocytes/100 WBC (Bld) 0.700 % 0.0-0.9 [facility] Comment on above: IG% - Immature Granu locytes (promyelocytes, myelocytes and metamyelocytes) > 1% indicates that a LEFT SHIFT is Present. Laboratory - Chemistry and C hemistry - challengeOrdered By: Pamela Mackenzie on 06-24-2023 Albumin/Globulin [Mass ratio] 1.1 {ratio} 0.9-2.4 [facility] ALP [Catalytic activity/Vol] 117 U/L 45-117 [facility] ALT [Catalytic activity/Vol] 10 U/L 16-61 [facility] CO2 [Moles/Vol] 27.0 mmol/L 21.0-32.0 [facility] Globulin (S) [Mass/Vol] 3.3 g/dL 2.2-4.2 [facility] Natriuretic peptide B (Bld) [Mass/Vol] 195.3 pg/mL 0-100 [facility] Urea nitrogen/Creatinine [Mass ratio] 18.0 mg/mg 10-20 [facility] Laboratory - Hematology and Cell countsOrdered By: Pamela Mackenzie on 06-24-2023 MCH (RBC) [Entitic mass] 32.0 pg 27.0-32.0 [facility] MCHC (RBC) [Mass/Vol] 32.6 g/dL 32-36 [facility] Nucleated RBC/100 WBC (Bld) [Ratio] 0 % 0-5 [facility] Platelet mean volume (Bld) [Entitic vol] 9.4 fL 6.2-12.0 [facility] Platelets (Bld) [#/Vol] 213 10*3/uL 150-450 [facility] No Panel InformationOrdered By: Pamela Mackenzie on 06-24-2023 Estimated GFR (MDRD) Amer 99 mL/min >60 [facility] Comment on above: GFR Calc Estimated GFR (MDRD) Non-Af Amer 82 mL/min >60 [facility] Comment on above: Non- GFR Calc RBC Auto (Bld) [#/Vol]Ordere d By: Pamela Mackenzie on 06-24-2023 RBC (Bld) [#/Vol] 3.91 10*6/uL 4.6-6.2 [facility] Serum or plasma calcium jennifer urement (mass/volume)Ordered By: Pamela Mackenzie on 06-24-2023 Calcium [Mass/Vol] 9.3 mg/dL 8.5-10.1 [facility] Serum or plasma creatinine m easurement (mass/volume)Ordered By: Pamela Mackenzie on 06-24-2023 Creatinine [Mass/Vol] 0.94 mg/dL 0.70-1.30 [facility] Comment on above: The validity of the calculated GFR & GFRAA in patients over 70 years has not been determined. Clinical correlation is essential. Serum or plasma urea nitroge n measurement (mass/volume)Ordered By: Pamela Mackenzie on 06-24-2023 Urea nitrogen [Mass/Vol] 17 mg/dL 7-18 [facility] Thin prep Papanicolaou smear with manual screeningOrdered By: Pamela Mackenzie on 06-24-2023 Thin prep Papanicolaou smear with manual screening 3.5 g/dL 3.2-5.0 [facility] Thin prep Papanicolaou smear with manual screening 18 U/L 15-37 [facility] Thin prep Papanicolaou smear with manual screening 2 5-15 [facility] Basophil percentageOrdered B y: Pamela Mackenzie on 06-11-2023 Bilirubin [Mass/Vol] 1.20 mg/dL 0.20-1.00 [facility] Comment on above: For patients on eltr ombopag therapy, use of Dimension [place] TBIL is not recommended. Cholesterol [Mass/Vol] 137 mg/dL <200 [facility] Comment on above: <200 mg/dL Desirable 200-240 mg/dL Borderline >240 mg/dL High Risk Protein [Mass/Vol] 7.4 g/dL 6.4-8.2 [facility] Triglyceride [Mass/Vol] 62 mg/dL <199 [facility] Comment on above: The drugs N-Acetylcy steine and Metamizole may falsely depress this assay.Serum Triglycerides Reference Interval Normal <150 mg/dL Borderline high 150 - 199 mg/dL High 200 - 499 mg/dL Very High > or = 500 mg/dL Direct bilirubinOrdered By: Pamela Mackenzie on 06-11-2023 Bilirubin.direct [Mass/Vol] 0.33 mg/dL 0.00-0.30 [facility] Laboratory - Chemistry and C hemistry - challengeOrdered By: Pamela Mackenzie on 06-11-2023 ALP [Catalytic activity/Vol] 129 U/L 45-117 [facility] ALT [Catalytic activity/Vol] 30 U/L 16-61 [facility] Cholesterol in HDL [Mass/Vol] 60 mg/dL >40 [facility] Comment on above: The drugs N-Acetylcy steine and Metamizole may falsely depress this assay. Reference Range HDL <40 mg/dL Low HDL Cholesterol HDL >or= 60 mg/dL High HDL Cholesterol Cholesterol in LDL [Mass/Vol] 65 mg/dL 0-130 [facility] Globulin (S) [Mass/Vol] 3.5 g/dL 2.2-4.2 [facility] No Panel InformationOrdered By: Pamela Mackenzie on 06-11-2023 VLDL Cholesterol 12 mg/dL 5-40 [facility] Thin prep Papanicolaou smear with manual screeningOrdered By: Pamela Mackenzie on 06-11-2023 Thin prep Papanicolaou smear with manual screening 3.9 g/dL 3.2-5.0 [facility] Thin prep Papanicolaou smear with manual screening 19 U/L 15-37 [facility] Basophil percentageOrdered B y: Aaron Perez on 12-19-2022 Bilirubin [Mass/Vol] 1.10 mg/dL 0.20-1.00 [facility] Comment on above: For patients on eltr ombopag therapy, use of Dimension [place] TBIL is not recommended. Cholesterol [Mass/Vol] 128 mg/dL <200 [facility] Comment on above: <200 mg/dL Desirable 200-240 mg/dL Borderline >240 mg/dL High Risk Protein [Mass/Vol] 7.1 g/dL 6.4-8.2 [facility] Triglyceride [Mass/Vol] 82 mg/dL <199 [facility] Comment on above: The drugs N-Acetylcy steine and Metamizole may falsely depress this assay.Serum Triglycerides Reference Interval Normal <150 mg/dL Borderline high 150 - 199 mg/dL High 200 - 499 mg/dL Very High > or = 500 mg/dL Direct bilirubinOrdered By: Aaron Perez on 12-19-2022 Bilirubin.direct [Mass/Vol] 0.28 mg/dL 0.00-0.30 [facility] Laboratory - Chemistry and C hemistry - challengeOrdered By: Aaron Perez on 12-19-2022 ALP [Catalytic activity/Vol] 123 U/L 45-117 [facility] ALT [Catalytic activity/Vol] 45 U/L 16-61 [facility] Globulin (S) [Mass/Vol] 3.4 g/dL 2.2-4.2 [facility] Serum or plasma albumin jennifer urement (mass/volume)Ordered By: Aaron Perez on 12-19-2022 Albumin [Mass/Vol] 3.7 g/dL 3.2-5.0 [facility] Serum or plasma cholesterol in HDL measurement (mass/volume)Ordered By: Aaron Perez on 12-19-2022 Cholesterol in HDL [Mass/Vol] 50 mg/dL >40 [facility] Comment on above: The drugs N-Acetylcy steine and Metamizole may falsely depress this assay. Reference Range HDL <40 mg/dL Low HDL Cholesterol HDL >or= 60 mg/dL High HDL Cholesterol Serum or plasma cholesterol in VLDL measurement (mass/volume)Ordered By: Aaron Perez on 12-19-2022 Cholesterol in VLDL [Mass/Vol] 16 mg/dL 5-40 [facility] Serum or plasma low density lipoprotein (LDL) cholesterol measurement (mass/volume)Ordered By: Aaron Perez on 12-19-2022 Cholesterol in LDL [Mass/Vol] 62 mg/dL 0-130 [facility] Thin prep Papanicolaou smear with manual screeningOrdered By: Aaron Perez on 12-19-2022 Thin prep Papanicolaou smear with manual screening 23 U/L 15-37 [facility] Basophil percentageOrdered B y: Dr. Perez on 06-25-2022 Bilirubin [Mass/Vol] 1.00 mg/dL 0.20-1.00 [facility] Comment on above: For patients on eltr ombopag therapy, use of Dimension [place] TBIL is not recommended. Cholesterol [Mass/Vol] 135 mg/dL <200 [facility] Comment on above: <200 mg/dL Desirable 200-240 mg/dL Borderline >240 mg/dL High Risk Protein [Mass/Vol] 7.5 g/dL 6.4-8.2 [facility] Triglyceride [Mass/Vol] 77 mg/dL <199 [facility] Comment on above: The drugs N-Acetylcy steine and Metamizole may falsely depress this assay.Serum Triglycerides Reference Interval Normal <150 mg/dL Borderline high 150 - 199 mg/dL High 200 - 499 mg/dL Very High > or = 500 mg/dL Direct bilirubinOrdered By: Dr. Perez on 06-25-2022 Bilirubin.direct [Mass/Vol] 0.23 mg/dL 0.00-0.30 [facility] Laboratory - Chemistry and C hemistry - challengeOrdered By: Dr. Perez on 06-25-2022 ALP [Catalytic activity/Vol] 117 U/L 45-117 [facility] ALT [Catalytic activity/Vol] 22 U/L 16-61 [facility] Globulin (S) [Mass/Vol] 3.5 g/dL 2.2-4.2 [facility] Serum or plasma albumin jennifer urement (mass/volume)Ordered By: Dr. Perez on 06-25-2022 Albumin [Mass/Vol] 4.0 g/dL 3.2-5.0 [facility] Serum or plasma cholesterol in HDL measurement (mass/volume)Ordered By: Dr. Perez on 06-25-2022 Cholesterol in HDL [Mass/Vol] 43 mg/dL >40 [facility] Comment on above: The drugs N-Acetylcy steine and Metamizole may falsely depress this assay. Reference Range HDL <40 mg/dL Low HDL Cholesterol HDL >or= 60 mg/dL High HDL Cholesterol Serum or plasma cholesterol in VLDL measurement (mass/volume)Ordered By: Dr. Perez on 06-25-2022 Cholesterol in VLDL [Mass/Vol] 15 mg/dL 5-40 [facility] Serum or plasma low density lipoprotein (LDL) cholesterol measurement (mass/volume)Ordered By: Dr. Perez on 06-25-2022 Cholesterol in LDL [Mass/Vol] 77 mg/dL 0-130 [facility] Thin prep Papanicolaou smear with manual screeningOrdered By: Dr. Perez on 06-25-2022 Thin prep Papanicolaou smear with manual screening 38 U/L 15-37 [facility] Basophil percentageon 2021 Bilirubin [Mass/Vol] 0.80 mg/dL 0.20-1.00 [facility] Work Phone: Comment on above: For patients on eltr ombopag therapy, use of Dimension [place] TBIL is not recommended. Cholesterol [Mass/Vol] 150 mg/dL <200 [facility] Work Phone: Comment on above: <200 mg/dL Desirable 200-240 mg/dL Borderline >240 mg/dL High Risk Protein [Mass/Vol] 7.8 g/dL 6.4-8.2 [facility] Work Phone: Triglyceride [Mass/Vol] 116 mg/dL <199 [facility] Work Phone: Comment on above: The drugs N-Acetylcy steine and Metamizole may falsely depress this assay.Serum Triglycerides Reference Interval Normal <150 mg/dL Borderline high 150 - 199 mg/dL High 200 - 499 mg/dL Very High > or = 500 mg/dL Direct bilirubinon 2 Bilirubin.direct [Mass/Vol] 0.20 mg/dL 0.00-0.30 [facility] Work Phone: Laboratory - Chemistry and C hemistry - challengeon 12-25-2021 ALP [Catalytic activity/Vol] 142 U/L 45-117 [facility] Work Phone: ALT [Catalytic activity/Vol] 12 U/L 16-61 [facility] Work Phone: Globulin (S) [Mass/Vol] 4.1 g/dL 2.2-4.2 [facility] Work Phone: Serum or plasma albumin jennifer urement (mass/volume)on 12-25-2021 Albumin [Mass/Vol] 3.7 g/dL 3.2-5.0 [facility] Work Phone: Serum or plasma cholesterol in HDL measurement (mass/volume)on 12-25-2021 Cholesterol in HDL [Mass/Vol] 42 mg/dL >40 [facility] Work Phone: Comment on above: The drugs N-Acetylcy steine and Metamizole may falsely depress this assay. Reference Range HDL <40 mg/dL Low HDL Cholesterol HDL >or= 60 mg/dL High HDL Cholesterol Serum or plasma cholesterol in VLDL measurement (mass/volume)on 12-25-2021 Cholesterol in VLDL [Mass/Vol] 23 mg/dL 5-40 [facility] Work Phone: Serum or plasma low density lipoprotein (LDL) cholesterol measurement (mass/volume)on 12-25-2021 Cholesterol in LDL [Mass/Vol] 85 mg/dL 0-130 [facility] Work Phone: Thin prep Papanicolaou smear with manual screeningon 12-25-2021 Thin prep Papanicolaou smear with manual screening 19 U/L 15-37 [facility] Work Phone: Office Visit: [facility] 02-13-20 17 Documentation of current medications (procedure) Done Invalid Interpretation Code [facility] [employer] Work Phone: [phone] Protein mass conc Done Invalid Interpretation Code [facility] Work Phone: [phone] Lab Report: CBC W/Diff, Auto matedon 01-02-2017 RBC morphology finding Nom (Bld) NORM C+C Invalid Interpretation Code NORM C AND C [facility] [employer] Work Phone: [phone] Lab Report: T4 Total, Thyrox inon 01-02-2017 T4 mass conc 8.3 ug/dL Invalid Interpretation Code 4.5-12.1 [facility] [employer] Work Phone: [phone] Lab Report: Thyroid Stim Hor samara (TSH)on 01-02-2017 Thyrotropin Qn 1.18 u[iU]/mL Invalid Interpretation Code 0.358-3.74 [facility] [employer] Work Phone: [phone] Office Visit: [facility] 01-03-20 17 Documentation of current medications (procedure) Done Invalid Interpretation Code [facility] [employer] Work Phone: [phone] Fall risk assessment No Invalid Interpretation Code [facility] [employer] Work Phone: [phone] Protein mass conc Done Invalid Interpretation Code [facility] [employer] Work Phone: [phone] Replaced Document: (P) CBC W /Diff, Automatedon 08-30-2017 Absolute Neut 3.9 X10 3/UL Invalid Interpretation Code 2.0-7.7 [facility] Work Phone: [phone] Basophils/100 leukocytes 0.5 % Invalid Interpretation Code 0-1 [facility] Work Phone: Basophils/100 WBC (Bld) 0.5 % 0-1 [facility] Work Phone: Eosinophils/100 leukocytes 2.3 % Invalid Interpretation Code 0-5 [facility] Work Phone: Eosinophils/100 WBC (Bld) 2.3 % 0-5 [facility] Work Phone: [phone] Erythrocyte distribution width Auto Ratio (RBC) 46.3 fL High 35.1-43.9 [facility] Work Phone: [phone] Erythrocyte distribution width Ratio (RBC) 46.3 fL High 35.1-43.9 [facility] Work Phone: [phone] Erythrocyte distribution width Ratio (RBC) 13.2 % 11.6-14.6 [facility] Work Phone: [phone] Erythrocytes (RBC) 4.25 10*6/uL Low 4.6-6.[address] [facility] Work Phone: [phone] Hematocrit (HCT) 40.5 % Invalid Interpretation Code 40-54 [facility] Work Phone: [phone] Hematocrit Volume Fraction (Bld) 40.5 % 40-54 [facility] Work Phone: [phone] Hemoglobin (HGB) 13.6 g/dL Invalid Interpretation Code 13.0-16.5 [facility] Work Phone: [phone] Immature granulocytes #/vol (Bld) 0.200 % Invalid Interpretation Code 0.0-0.9 [facility] Work Phone: [phone] immature granulocytes, percentage of total cells, blood 0.200 % Invalid Interpretation Code 0.0-0.9 [facility] Work Phone: Immature granulocytes/100 WBC (Bld) 0.200 % Invalid Interpretation Code 0.0-0.9 [facility] Work Phone: [phone] Lymphocytes 1.40 X10 3/UL Invalid Interpretation Code 0.83-4.51 [facility] Work Phone: Lymphocytes #/vol (Bld) 1.40 X10 3/UL 0.83-4.51 [facility] Work Phone: Lymphocytes/100 leukocytes 21.9 % Invalid Interpretation Code 19-41 [facility] Work Phone: Lymphocytes/100 WBC (Bld) 21.9 % 19-41 [facility] Work Phone: MCH 32.0 pg Invalid Interpretation Code 27.0-32.0 [facility] Work Phone: [phone] MCH Entitic mass (RBC) 32.0 pg 27.0-32.0 [facility] Work Phone: MCHC 33.6 G/GL Invalid Interpretation Code 32-36 [facility] Work Phone: [phone] MCHC mass conc (RBC) 33.6 G/GL 32-[address] [facility] Work Phone: MCV 95.3 fL High 80-94 [facility] Work Phone: MCV Entitic volume (RBC) 95.3 fL High 80-94 [facility] Work Phone: Monocytes/100 leukocytes 14.1 % High 0-10 [facility] Work [phone] Monocytes/100 WBC (Bld) 14.1 % High 0-10 [facility] Work Phone: neutrophil count, blood 3.9 X10 3/UL Invalid Interpretation Code 2.0-7.7 [facility] Work Phone: Neutrophils #/vol (Bld) 3.9 X10 3/UL 2.0-7.7 [facility] Work Phone: Neutrophils Auto #/vol (Bld) 3.9 X10 3/UL Invalid Interpretation Code 2.0-7.7 [facility] Work Phone: [phone] Neutrophils/100 leukocytes 61.0 % Invalid Interpretation Code 47-70 [facility] Work Phone: [phone] Neutrophils/100 WBC (Bld) 61.0 % 47-70 [facility] Work Phone: [phone] Platelet mean volume Entitic volume (Bld) 9.3 fL 6.2-12.0 [facility] Work Phone: [phone] Platelets 226 10*3/mm3 Invalid Interpretation Code 150-450 [facility] Work Phone: [phone] Platelets #/vol (Bld) 226 10*3/mm3 150-450 [facility] Work Phone: [phone] PMV by Bowen 9.3 fL Invalid Interpretation Code 6.2-12.0 [facility] Work Phone: [phone] RBC #/vol (Bld) 4.25 10*6/uL Low 4.6-6.2 [facility] Work Phone: [phone] RDW SD 46.3 fL High 35.1-43.9 [facility] Work Phone: [phone] RDW-CA 13.2 % Invalid Interpretation Code 11.6-14.6 [facility] Work Phone: [phone] red blood cell distribution width, size density 46.3 fL High 35.1-43.9 [facility] Work Phone: [phone] WBC #/vol (Bld) 6.4 10*3/uL 4.4-11.0 [facility] Work Phone: [phone] WBC (Leukocytes) 6.4 10*3/uL Invalid Interpretation Code 4.4-11.0 [facility] Work Phone: [phone]) Lab Report: Basic Metabolic Profile (BMP)on 11-15-2016 Anion gap 7 mmol/L Invalid Interpretation Code -15 [facility] Work Phone: [phone] Anion gap 4 molar conc 7 Invalid Interpretation Code -15 [facility] Work Phone: [phone] Anion gap molar conc 7 mmol/L 5-[address] [facility] Work Phone: [phone] Calcium mass conc 9.0 mg/dL Invalid Interpretation Code 8.5-10.1 [facility] Work Phone: [phone] Chloride molar conc 101 mmol/L Invalid Interpretation Code 98-107 [facility] Work Phone: [phone] CO2 29.0 mmol/L Invalid Interpretation Code 21.0-32.0 [facility] Work Phone: [phone] CO2 ppres (BldV) 29.0 mmol/L Invalid Interpretation Code 21.0-32.0 [facility] Work Phone: [phone] Creatinine mass conc 1.13 mg/dL Invalid Interpretation Code 0.70-1.30 [facility] Work Phone: [phone] eGFR (non-black) 82 mL/min/{1.73_m2} Invalid Interpretation Code >60 [facility] Work Phone: [phone] EST GFR - AA 82 mL/min Invalid Interpretation Code >60 [facility] Work Phone: [phone] GFR/1.73 sq M predicted among non-blacks MDRD vol rate/area (S/P/Bld) 68 mL/min/{1.73_m2} Invalid Interpretation Code >60 [facility] Work Phone: [phone] Glucose 106 mg/dL Invalid Interpretation Code 70-110 [facility] Work Phone: [phone] Glucose mass conc 106 mg/dL Invalid Interpretation Code 70-110 [facility] Work Phone: [phone] Potassium molar conc 4.1 mmol/L Invalid Interpretation Code 3.5-5.1 [facility] Work Phone: [phone] Sodium molar conc 137 mmol/L Invalid Interpretation Code 136-145 [facility] Work Phone: [phone] Urea nitrogen mass conc 31 mg/dL High 7-18 [facility] Work Phone: [phone] Urea nitrogen/Creatinine mass ratio 27.4 RATIO High 10-20 [employer] Phone: [phone] Office Visiton 07-04-2016 Documentation of current medications (procedure) Done Invalid Interpretation Code [employer] Phone: [phone] Protein mass conc Done [facility] Work Phone: [phone] 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 Left ventricular Ejection fraction 50 % Invalid Interpretation Code [facility] Work Phone: [phone] Lab Report: CBC-Complete Blo od Cnt No Diffon 05-04-2016 Erythrocyte distribution width Ratio (RBC) 12.8 % 11.6-14.6 [facility] Work Phone: [phone] Erythrocyte distribution width Ratio (RBC) 42.1 fL 35.1-43.9 [facility] Work Phone: [phone] Erythrocytes (RBC) 4.62 10*6/uL Invalid Interpretation Code 4.6-6.2 [facility] Work Phone: [phone] Hematocrit (HCT) 42.7 % Invalid Interpretation Code 40-54 [facility] Work Phone: [phone] Hematocrit Volume Fraction (Bld) 42.7 % 40-54 [facility] Work Phone: [phone] Hemoglobin mass conc (Bld) 14.6 g/dL Invalid Interpretation Code 13.0-16.5 [facility] Work Phone: [phone] MCH 31.6 pg Invalid Interpretation Code 27.0-32.0 [facility] Work Phone: [phone] MCH Entitic mass (RBC) 31.6 pg 27.0-32.0 [facility] Work Phone: [phone] MCHC 34.2 G/GL Invalid Interpretation Code 32-36 [facility] Work Phone: [phone] MCHC mass conc (RBC) 34.2 G/GL 32-[address] [facility] Work Phone: [phone] MCV 92.4 fL Invalid Interpretation Code 80-94 [facility] Work Phone: [phone] MCV Entitic volume (RBC) 92.4 fL 80-94 [facility] Work Phone: [phone] Platelet mean volume Entitic volume (Bld) 9.5 fL 6.2-12.0 [facility] Work Phone: [phone] Platelets 226 10*3/mm3 Invalid Interpretation Code 150-450 [facility] Work Phone: Platelets #/vol (Bld) 226 10*3/mm3 150-450 [facility] Work Phone: [phone] PMV by Bowen 9.5 fL Invalid Interpretation Code 6.2-12.0 [facility] Work Phone: [phone] RBC #/vol (Bld) 4.62 10*6/uL 4.6-6.2 [facility] Work Phone: [phone] RDW-CA 12.8 % Invalid Interpretation Code 11.6-14.6 [facility] Work Phone: [phone] red blood cell distribution width, size density 42.1 fL Invalid Interpretation Code 35.1-43.9 [facility] Work Phone: [phone] WBC #/vol (Bld) 5.8 10*3/uL 4.4-11.0 [facility] Work Phone: [phone] WBC (Leukocytes) 5.8 10*3/uL Invalid Interpretation Code 4.4-11.0 [facility] Work Phone: [phone]) Lab Report: Comprehensive [facility] Profilon 05-04-2016 Albumin mass conc 3.8 g/dL Invalid Interpretation Code 3.4-5.0 [facility] Work Phone: [phone] Albumin/Globulin mass ratio 1.1 {ratio} Invalid Interpretation Code 0.9-2.4 [facility] Work Phone: [phone] Alkaline phosphatase (ALP) 128 U/L High 45-117 [facility] Work Phone: [phone] ALP enzyme act/vol (Bld) 128 U/L High 45-117 [facility] Work Phone: [phone] ALT enzyme act/vol 20 U/L Invalid Interpretation Code 12-78 [facility] Work Phone: [phone] Anion gap molar conc 7 mmol/L 5-[address] [facility] Work Phone: [phone] AST enzyme act/vol 23 U/L Invalid Interpretation Code 15-37 [facility] Work Phone: [phone] Bilirubin mass conc 1.10 mg/dL High 0.20-1.00 [facility] Work Phone: [phone] Calcium mass conc 8.6 mg/dL 8.5-10.1 [facility] Work Phone: [phone] Chloride molar conc 106 mmol/L 98-107 [facility] Work Phone: [phone] CO2 ppres (BldV) 27.0 mmol/L 21.0-32.0 [facility] Work Phone: [phone] Creatinine mass conc 0.89 mg/dL 0.70-1.[address] [facility] Work Phone: [phone] EST GFR - AA 108 mL/min >60 [facility] Work Phone: [phone] GFR/1.73 sq M predicted among non-blacks MDRD vol rate/area (S/P/Bld) 89 mL/min/{1.73_m2} >60 [facility] Work Phone: [phone] Globulin 3.5 g/dL Invalid Interpretation Code 2.3-3.5 [facility] Work Phone: [phone] Globulin mass conc (S) 3.5 g/dL 2.3-3.5 [facility] Work Phone: [phone] Glucose mass conc 96 mg/dL 70-110 [facility] Work Phone: [phone] Potassium molar conc 3.8 mmol/L 3.5-5.[address] [facility] Work Phone: [phone] Protein mass conc 7.3 g/dL Invalid Interpretation Code 6.4-8.2 [facility] Work Phone: [phone] Sodium molar conc 140 mmol/L 136-145 [facility] Work Phone: [phone] Urea nitrogen mass conc 13 mg/dL 7-18 [facility] Work Phone: [phone] Urea nitrogen/Creatinine mass ratio 14.6 RATIO 10-20 [facility] Work Phone: [phone]) Lab Report: Lipid Profileon 05-04-2016 Cholesterol in HDL mass conc 36 mg/dL Low [facility] Work Phone: [phone] Cholesterol in LDL mass conc 57 mg/dL Invalid Interpretation Code 0-130 [facility] Work Phone: [phone] Cholesterol mass conc 114 mg/dL Invalid Interpretation Code 200 [facility] Work Phone: [phone] Lipoprotein.pre-beta mass conc 21 mg/dL Invalid Interpretation Code 5-40 [employer] Phone: [phone] Triglyceride mass conc 107 mg/dL Invalid Interpretation Code [facility] Work Phone: [phone]) Lab Report: T4 Free Directon 05-04-2016 T4 free mass conc 1.19 ng/dL Invalid Interpretation Code 0.76-1.46 [facility] Phone: [phone]) Lab Report: Thyroid Stim Hor samara (TSH)on 05-04-2016 Thyrotropin Qn 0.97 u[iU]/mL 0.358-3.74 [employer] Phone: [phone] Replaced Document: Kendrick VENCES Observationson 11-30-2015 EKG QRS axis -113 deg Invalid Interpretation Code [facility] Work Phone: [phone] electrocardiogram interpretation Sinus Bradycardia -WPW pattern. ABNORMAL Invalid Interpretation Code [employer] Phone: [phone] GE use only - for [employer] import when terms are not otherwise specified 464 ms Invalid Interpretation Code [employer] Phone: [phone] Interpretation Sinus Bradycardia -WPW pattern. ABNORMAL Invalid Interpretation Code [employer] Phone: [phone] P [place] 107 deg Invalid Interpretation Code [employer] Phone: [phone] P wave axis, electrocardiogram 107 deg Invalid Interpretation Code [facility] Work Phone: [phone] MA Interval 184 ms Invalid Interpretation Code [employer] Phone: [phone] MA interval, electrocardiogram 184 ms Invalid Interpretation Code [employer] Phone: [phone] Pulse (Heart Rate) 55 /min Invalid Interpretation Code [employer] Phone: [phone] QRS axis, electrocardiogram -113 deg Invalid Interpretation Code [employer] Phone: [phone] QRS Duration 186 ms Invalid Interpretation Code [facility] Work Phone: [phone] QRS duration, electrocardiogram 186 ms Invalid Interpretation Code [employer] Phone: [phone] QT Interval new path ms Invalid Interpretation Code [facility] Work Phone: [phone] QT interval, electrocardiogram new path ms Invalid Interpretation Code [employer] Phone: [phone] QTc Aldana 464 ms Invalid Interpretation Code [employer] Phone: [phone] T [place] 90 deg Invalid Interpretation Code [facility] Work Phone: [phone] T wave axis, electrocardiogram 90 deg Invalid Interpretation Code [employer] Phone: [phone] Office Visiton 05-19-2015 Tobacco smoking status NHIS Never smoker Invalid Interpretation Code [employer] Phone: [phone] Tobacco use CPHS Never smoker Invalid Interpretation Code [employer] Phone: [phone] Lab Report: Liver Profileon 04-21-2015 Bilirubin.direct mass conc 0.19 mg/dL Invalid Interpretation Code 0.00-0.30 [employer] Phone: [phone] Lab Report: PSA,Total - Emma al Screenon 04-21-2015 prostate specific antigen (PSA) screening 0.86 ng/mL Invalid Interpretation Code 0.00-4.00 [employer] Phone: [phone] Protein mass conc 0.86 ng/mL 0.00-4.00 [employer] Phone: [phone] PSA,TOT SCREEN 0.86 ng/mL Invalid Interpretation Code 0.00-4.00 [employer] Phone: [phone] Lab Report: T4 Total, Thyrox inon 10-23-2014 T4 mass conc 10.2 ug/dL 4.5-12.1 [employer] Phone: [phone] Office Visiton 04-19-2014 cardiac risk group C Invalid Interpretation Code [employer] Phone: [phone] General cardiovascular disease 10Y risk [#] [place].D'Agostino N/A Invalid Interpretation Code [employer] Phone: [phone] Clinical Lists Update: 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 engineering faculty member 04-14-2014 Digoxin 1.00 ng/mL Invalid Interpretation Code [facility] Work Phone: [phone] Digoxin>12 hours p dose mass conc 1.00 ng/mL Invalid Interpretation Code [facility] Work Phone: [phone] Clinical Lists Update: Pre engineering faculty member 04-13-2014 Globulin 3.1 g/dL Invalid Interpretation Code [facility] Work Phone: [phone] Globulin mass conc (S) 3.1 g/dL [facility] Work Phone: [phone] Clinical Lists Update: Pacer Preloadon 04-30-2013 Left ventricular Ejection fraction 50 % Invalid Interpretation Code [facility] Work Phone: [phone] Lab Report: UAon 04-21-2013 Specific gravity Refractometry Relative Density (U) 1.015 Normal 1.002-1.030 [facility] Work Phone: [phone] Lab Report: PTon 04-16-2013 INR Coag RelTime (PPP) 1.1 {INR} Normal [facility] Work Phone: [phone] INR in blood by coagulation 1.1 {INR} Normal [facility] Work Phone: [phone] prothrombin time, actual/normal, ratio 13.3 SECONDS Normal 11.9-14.4 [facility] Work Phone: [phone] PTP 13.3 SECONDS Normal 11.9-14.4 [facility] Work Phone: [phone] Replaced Document: Kendrick Noriega Observationson 04-10-2013 Pulse (Heart Rate) 453 ms Invalid Interpretation Code [facility] Work Phone: [phone] Clinical Lists Update: Pre engineering faculty member 04-08-2012 Glucose 90 mg/dL Invalid Interpretation Code [facility] Work Phone: [phone] Glucose fasting mass conc 90 mg/dL [facility] Work Phone: [phone] Glucose fasting mass conc (BldV) 90 mg/dL Invalid Interpretation Code [facility] Work Phone: [phone] Glucose mass conc 90 mg/dL Invalid Interpretation Code [facility] Work Phone: [phone] Vital Signs Date Time Vital Sign Value Performing Clinician Zainab loza 12-17-2024 15:56-0400 Body height [address] Juan Carlos Joel MD Work Phone: [facility] 08-15-2023 13:26-0400 Body height 177.[address] Juan Carlos Joel Work Phone: [facility] 08-15-2023 13:26-0400 Body mass index (BMI) [Ratio] 20.6 kg/m2 Dr. Juan Carlos Joel Work Phone: [facility] 08-15-2023 13:26-0400 Body weight 65.[address] Juan Carlos Joel Work Phone: [facility] 08-15-2023 13:26-0400 Diastolic blood pressure 68 mm[Hg] Dr. Juan Carlos Joel Work Phone: [facility] 08-15-2023 13:26-0400 Heart rate 63 /min Dr. Juan Carlos Joel Work Phone: [facility] 08-15-2023 13:26-0400 Respiratory rate 18 /min Dr. Juan Carlos Joel Work Phone: [facility] 08-15-2023 13:26-0400 Systolic blood pressure 126 mm[Hg] Dr. Juan Carlos Joel Work Phone: [facility] 06-25-2023 09:56-0500 Body height 177.[address] Juan Carlos Joel Work Phone: [facility] 06-25-2023 09:56-0500 Body mass index (BMI) [Ratio] 21.7 kg/m2 Dr. Juan Carlos Joel Work Phone: [facility] 06-25-2023 09:56-0500 Body weight 68.[address] Juan Carlos Joel Work Phone: [facility] 06-25-2023 09:56-0500 Diastolic blood pressure 60 mm[Hg] Dr. Juan Carlos Joel Work Phone: [facility] 06-25-2023 09:56-0500 Heart rate 60 /min Dr. Juan Carlos Joel Work Phone: [facility] 06-25-2023 09:56-0500 Respiratory rate 18 /min Dr. Juan Carlos Joel Work Phone: [facility] 06-25-2023 09:56-0500 SaO2% (BldA) [Mass fraction] 94 % Dr. Juan Carlos Joel Work Phone: [facility] 06-25-2023 09:56-0500 Systolic blood pressure 102 mm[Hg] Dr. Juan Carlos Joel Work Phone: [facility] 05-20-2023 13:19-0500 Body mass index (BMI) [Ratio] 19.6 kg/m2 Dr. Juan Carlos Joel Work Phone: [facility] 05-20-2023 13:19-0500 Body weight 62.[address] Juan Carlos Joel Work Phone: [facility] 05-20-2023 13:19-0500 Diastolic blood pressure 68 mm[Hg] Dr. Juan Carlos Joel Work Phone: [facility] 05-20-2023 13:19-0500 Heart rate 52 /min Dr. Juan Carlos Jole Work Phone: [facility] 05-20-2023 13:19-0500 Respiratory rate 16 /min Dr. Juan Carlos Joel Work Phone: [facility] 05-20-2023 13:19-0500 Systolic blood pressure 123 mm[Hg] Dr. Juan Carlos Joel Work Phone: [facility] 11-20-2022 13:57-0400 Body height 177.[address] Juan Carlos Joel Work Phone: [facility] 11-20-2022 13:57-0400 Body mass index (BMI) [Ratio] 19.6 kg/m2 Dr. Juan Carlos Joel Work Phone: [facility] 11-20-2022 13:57-0400 Body weight 62.[address] Juan Carlos Joel Work Phone: [facility] 11-20-2022 13:57-0400 Diastolic blood pressure 63 mm[Hg] Dr. Juan Carlos Joel Work Phone: [facility] 11-20-2022 13:57-0400 Heart rate 55 /min Dr. Juan Carlos Joel Work Phone: [facility] 11-20-2022 13:57-0400 Respiratory rate 18 /min Dr. Juan Carlos Joel Work Phone: [facility] 11-20-2022 13:57-0400 SaO2% (BldA) [Mass fraction] 93 % Dr. Juan Carlos Joel Work Phone: [facility] 11-20-2022 13:57-0400 Systolic blood pressure 119 mm[Hg] Dr. Juan Carlos Joel Work Phone: [facility] 05-28-2022 13:25-0500 Body height 177.[address] Juan Carlos Joel Work Phone: [phone] [address] 05-28-2022 13:25-0500 Body mass index (BMI) [Ratio] 19.9 kg/m2 Dr. Juan Carlos Joel Work Phone: [phone] [place] [address] 05-28-2022 13:25-0500 Body weight 63.[address] Juan Carlos Joel Work Phone: [facility] 05-28-2022 13:25-0500 Diastolic blood pressure 68 mm[Hg] Dr. Juan Carlos Joel Work Phone: [facility] 05-28-2022 13:25-0500 Heart rate 55 /min Dr. Juan Carlos Joel Work Phone: [facility] 05-28-2022 13:25-0500 Respiratory rate 18 /min Dr. Juan Carlos Joel Work Phone: [facility] 05-28-2022 13:25-0500 SaO2% (BldA) [Mass fraction] 93 % Dr. Juan Carlos Joel Work Phone: [facility] 05-28-2022 13:25-0500 Systolic blood pressure 117 mm[Hg] Dr. Juan Carlos Joel Work Phone: [facility] 01-16-2022 14:52-0400 Body height 175.3 cm Cherry Billingsley SUPERVISOR PREPRESS.CNA PER DIEM Work Phone: [facility] 01-16-2022 14:52-0400 Body weight 67.41 kg Cherry Billingsley SUPERVISOR PREPRESS.CNA PER DIEM Work Phone: [facility] 01-16-2022 14:52-0400 SaO2% (BldA) [Mass fraction] 97 % Cherry Billingsley SUPERVISOR PREPRESS.CNA PER DIEM Work Phone: [facility] 11-24-2021 15:58-0400 Body height 177.[address] Juan Carlos Joel Work Phone: [facility] Work Phone: 10-23-2021 15:24-0400 Body mass index (BMI) [Ratio] 21.4 kg/m2 Dr. Juan Carlos Joel Work Phone: [facility] Work Phone: 10-23-2021 15:24-0400 Body weight 67.[address] Juan Carlos Joel Work Phone: [facility] Work Phone: 10-23-2021 15:24-0400 Diastolic blood pressure 48 mm[Hg] Dr. Juan Carlos Joel Work Phone: [facility] Work Phone: 10-23-2021 15:24-0400 Heart rate 56 /min Dr. Juan Carlos Joel Work Phone: [facility] Work Phone: 10-23-2021 15:24-0400 Respiratory rate 16 /min Dr. Juan Carlos Joel Work Phone: [facility] Work Phone: 10-23-2021 15:24-0400 Systolic blood pressure 96 mm[Hg] Dr. Juan Carlos Joel Work Phone: [facility] Work Phone: 09-20-2021 10:03-0400 Body height 175.3 cm Willie Haywood MD Work Phone: [facility] 09-20-2021 10:03-0400 Body weight 71.22 kg Willie Haywood MD Work Phone: [facility] 09-20-2021 10:03-0400 Diastolic blood pressure 70 mm[Hg] Willie Haywood MD Work Phone: [facility] 09-20-2021 10:03-0400 Heart rate 55 /min Willie Haywood MD Work Phone: [facility] 09-20-2021 10:03-0400 SaO2% (BldA) [Mass fraction] 98 % Willie Haywood MD Work Phone: [facility] 09-20-2021 10:03-0400 Systolic blood pressure 141 mm[Hg] Willie Haywood MD Work Phone: [facility] 02-12-2017 11:51-0400 BMI (Body Mass Index) 22.89 kg/m2 Valarie Swenson [facility] Work Phone: 02-12-2017 11:51-0400 BP Diastolic 60 mm[Hg] Valarie Duffy [facility] Work Phone: 02-12-2017 11:51-0400 BP Systolic 98 mm[Hg] Valarie Duffy [facility] Work Phone: 02-12-2017 11:51-0400 Weight 70.31 kg Valarie Duffy [facility] Work Phone: 01-02-2017 13:22-0400 BMI (Body Mass Index) 22.93 kg/m2 [facility] Work Phone: 01-02-2017 13:22-0400 BP Diastolic 58 mm[Hg] [facility] Work Phone: 01-02-2017 13:22-0400 BP Systolic 98 mm[Hg] [facility] Work Phone: 01-02-2017 13:22-0400 Height 175.26 cm [facility] Work Phone: 01-02-2017 13:22-0400 Pulse (Heart Rate) 56 /min [facility] Work Phone: 01-02-2017 13:22-0400 Respiratory Rate 20 /min [facility] Work Phone: 01-02-2017 13:22-0400 Weight 70.45 kg [facility] Work Phone: 07-04-2016 14:17-0500 BMI (Body Mass Index) 23.92 kg/m2 [facility] Work Phone: 07-04-2016 14:17-0500 BP Diastolic 60 mm[Hg] Jena Santiago RN [facility] Work Phone: 07-04-2016 14:17-0500 BP Systolic 118 mm[Hg] Jena Santiago RN [facility] Work Phone: 07-04-2016 14:17-0500 Pulse (Heart Rate) 60 /min Jena Santiago RN [facility] Work Phone: 07-04-2016 14:17-0500 Respiratory Rate 16 /min Jena Santiago RN [facility] Work Phone: 07-04-2016 14:17-0500 Weight 73.48 kg Jena Santiago RN [facility] Work Phone: 11-30-2015 09:39-0400 Heart rate 55 /min Jena Santiago RN [facility] Work Phone: 11-30-2015 09:29-0400 BSA (Body Surface Area) 1.9 m2 [facility] Work Phone: 04-10-2013 14:36-0500 Heart rate 453 ms [facility] Work Phone: 08-23-2011 10:46-0400 Height 175.26 cm [facility] Work Phone: Encounters Encounter Date Encounter Type Care Provider Facility Start: 12-18-2024 ambulatory Juan Carlos Joel Facility:[facility] Start: 12-18-2024 Registered Referred Adams Ivy MD [facility] Start: 12-16-2024 End: 12-16-[address] Juan Carlos Joel MD Work Phone: [facility] Start: 12-16-2024 End: 12-16-[address] Daniel Kaplan MD -[facility] Work Phone: Start: 12-08-2024 End: 12-08-[address] Juan Carlos Joel MD Work Phone: [facility] Start: 12-08-2024 End: 12-08-[address] Adams Ivy MD -[facility] Work Phone: Start: 11-26-2024 End: 11-26-[address] Juan Carlos Joel MD Work Phone: [facility] Start: 11-26-2024 End: 11-26-2024 Patient encounter procedure Hallie Campos NP-[facility] Work Phone: Start: 10-13-2024 End: 10-13-[address] Juan Carlos Joel MD Work Phone: [facility] Start: 10-13-2024 End: 10-13-[address] Adams Ivy MD -[facility] Work Phone: Start: 09-22-2024 End: 09-22-[address] Juan Carlos Joel MD Work Phone: [facility] Start: 09-22-2024 End: 09-22-2024 Patient encounter procedure aHllie Campos NP-C [facility] Work Phone: Start: 09-12-2024 End: 09-12-[address] Juan Carlos Joel MD Work Phone: [facility] Work Phone: Start: 09-12-2024 End: 09-12-[address] Daniel Kaplan MD -[facility] Work Phone: Start: 09-10-2024 End: 09-10-[address] Juan Carlos Joel MD Work Phone: [facility] Start: 09-10-2024 End: 09-10-2024 Patient encounter procedure Hallie Campos MEDICAL EDUCATION MANAGER-C -[facility] Work Phone: Start: 05-15-2024 End: 05-15-2024 ambulatory Juan Carlos Wisam Facility:[facility] Start: 05-15-2024 ambulatory Clarencejuliustowndeniz aMrciale OLS Fa cility:[facility] Start: 05-05-2024 End: 05-05-2024 ambulatory Efnella Marciale Facility:[facility] Start: 05-04-2024 ambulatory Efewjuliustownbe Aggiee OLS Fa cility:[facility] Start: 05-01-2024 End: 05-01-2024 ambulatory Hallie Salgadosri Facility:[facility] Start: 04-26-2024 ambulatory Maria Fernanda Ady Wisdom Facility :[facility] Start: 04-26-2024 End: 04-30-2024 Evaluation and management of inpatient Juan Carlos Joel Facility:[facility] Start: 02-06-2024 End: 02-06-2024 ambulatory Juan Carlos Joel Facility:[facility] Start: 02-03-2024 End: 02-03-2024 ambulatory Juan Carlos Joel Facility:[facility] Start: 01-22-2024 End: 01-22-2024 Telephone encounter Marisela Irvin LPN Work Phone: [facility] Comment on above: Home Care (Confirmat ion call) Start: 01-21-2024 End: 01-21-2024 Telephone encounter Marisela Irvin LPN Work Phone: [facility] Comment on above: Home Care (MD janak ibanez) Start: 01-19-2024 ambulatory Noman Aldana Fac ility:[facility] Start: 01-19-2024 End: 01-21-2024 Evaluation and management of inpatient Juan Carlos Joel Facility:[facility] Start: 01-18-2024 ambulatory Juan Carlos Joel Facility:[facility] Start: 01-16-2024 End: 01-16-2024 ambulatory Juan Carlos Joel Facility:[facility] Start: 11-15-2023 Refill Willie kaplan MD Work Phone: Neurology Comment on above: Refill Request Start: 09-06-2023 Non-patient / Non-visit Dr. Emilio Joel Work Phone: [facility] Work Phone: Start: 09-05-2023 Non-patient / Non-visit Dr. Emilio Joel Work Phone: [facility] Start: 09-05-2023 End: 09-05-[address] Juan Carlos Joel Work Phone: [facility] Work Phone: Start: 09-05-2023 End: 09-05-[address] Juan Carlos Joel Work Phone: [facility] Work Phone: Start: 09-02-2023 Refill Willie kaplan MD Work Phone: Neurology Comment on above: Refill Request Start: 08-22-2023 Non-patient / Non-visit Dr. Emilio Joel Work Phone: [facility] Work Phone: Start: 08-22-2023 Non-patient / Non-visit Dr. Emilio Joel Work Phone: [facility] Start: 08-22-2023 End: 08-22-[address] Juan Carlos Joel Work Phone: [facility] Work Phone: Start: 08-22-2023 End: 08-22-[address] [facility] Work [facility]: Start: 08-15-2023 End: 08-15-[address] Juan Carlos Joel Work Phone: [facility] Work Phone: Start: 08-08-2023 End: 08-08-[address] Juan Carlos Joel Work Phone: [facility] Work Phone: Start: 08-08-2023 End: 08-08-[address] Juan Carlos Joel Work Phone: [facility] Start: 07-15-2023 End: 07-15-[address] Juan Carlos Joel Work Phone: [facility] Work Phone: Start: 07-15-2023 End: 07-15-[address] [facility] Start: 06-25-2023 End: 06-25-[address] Juan Carlos Joel Work Phone: [facility] Work Phone: Start: 06-24-2023 End: 06-24-[address] Juan Carlos Joel Work Phone: [facility] Work Phone: Start: 06-24-2023 End: 06-24-[address] [facility] Start: 06-11-2023 End: 06-11-[address] [facility] Start: 05-20-2023 End: 05-20-[address] Juan Carlos Joel Work Phone: [facility] Work Phone: Start: 12-19-2022 End: 12-19-[address] Juan Carlos Joel Work Phone: [facility] Work Phone: Start: 12-19-2022 End: 12-19-[address] [facility] Start: 11-20-2022 End: 11-20-[address] Juan Carlos Joel Work Phone: [facility] Work Phone: Start: 08-27-2022 Telephone encounter Willie sagastume MD Work Phone: [facility] Comment on above: Symptom Management Start: 06-25-2022 End: 06-25-[address] Juan Carlos Joel Work Phone: [facility] Work Phone: Start: 06-25-2022 End: 06-25-[address] [facility] Start: 05-28-2022 End: 05-28-[address] Juan Carlos Joel Work Phone: [facility] Start: 01-22-2022 Refill Cherry zavala SUPERVISOR PREPRESS.CNA PER DIEM Work Phone: [facility] Comment on above: Refill Request Start: 01-16-2022 End: 01-16-2022 Patient encounter procedure Cherry Billingsley APRN.CNA PER DIEM Work Phone: Neurology Comment on above: Parkinson disease (H CC) (Primary Dx) Start: 12-25-2021 End: 12-25-[address] Juan Carlos Joel Work Phone: [facility] Work Phone: Start: 12-25-2021 End: 12-25-[address] Juan Carlos Joel Work Phone: [facility] Start: 11-24-2021 End: 11-24-[address] Juan Carlos Joel Work Phone: [facility] Start: 10-23-2021 End: 10-23-[address] Juan Carlos Joel Work Phone: [facility] Start: 09-20-2021 End: 09-20-2021 Patient encounter procedure Willie Haywood MD Work Phone: Neurology Comment on above: Parkinson disease (H CC) (Primary Dx); RBD (REM behavioral disorder); Gait instability Procedures Date Procedure Procedure Detail Performing Clinician Start: 12-18-[address] Juan Carlos Joel MD Work Phone: Start: 12-18-2024 Urnls dip stick/tabl et reagent auto microscopy Dr. Juan Carlos Joel MD Work Phone: Start: 09-05-2023 Cardiovascular stres s test using [...] Start: 01-02-2017 End: 01-09-2017 Nuclear stress test -Lexjúnior Jorgensen PA-C Work Phone: Start: 01-02-2017 End: [...] Start: 01-02-2017 End: 01-09-2017 Nuclear stress test -Onieljúnior Jorgensen PA-C Work Phone: Start: 01-02-2017 End: [...] 03-19-2016 Icd device progr eval, mult Aaron Perez MD Start: 03-19-2016 End: 07-04-2016 [...] 12-13-2015 Icd device progr eval, mult Aaron Perez MD Start: 12-12-2015 End: 12-25-2016 Pacer Clinic Aaron Perez MD Start: 11-30-2015 End: 11-30-2015 Ecg routine ecg w/least 12 lds w/i&r Karen Jorgensen PA-C Work Phone: Start: 11-30-2015 End: 11-30-2015 Follow Up Appt 6 months Karen Jorgensen PA-C Work Phone: Start: 11-30-2015 End: 11-30-2015 PF Karen Jorgensen PA-C Work Phone: Start: 11-30-2015 [...] Aaron Perez MD Start: 05-19-2015 End: 05-19-2015 CLARISSA Perez MD Start: 05-19-2015 End: 05-19-2015 Follow Up Appt 6 months Aaron Perez MD Start: 05-19-2015 End: 05-19-2015 CLARISSA Perez MD Start: 04-18-2015 End: 04-21-2015 *Hepatic [...] 03-08-2015 Icd device progr eval, mult Aaron Perez MD Start: 03-07-2015 End: 11-23-2015 [...] 11-19-2014 End: 11-19-2014 Icd device progr eval, mult Aaron Perez MD Start: 11-19-2014 End: 11-23-2015 [...] W Auto Differential panel - Blood Karen Jorgesnen PA-C Work Phone: Start: 10-19-2014 End: 10-20-2014 [...] Start: 08-16-2014 End: 08-16-2014 Icd device progr evaurora, carleyt Ravi Conteh MD Work Phone: Start: [...] Start: 05-17-2014 End: 05-17-2014 Icd device progr raymond murillo MD Start: 05-17-2014 End: 10-05-2014 Pacer Clinic [...] 02-11-2014 Icd device progr eval, mult Aaron Perez MD Start: 02-11-2014 End: 10-05-2014 [...] Start: 09-26-2012 End: 09-26-2012 Icd device progr raymond murillo MD Start: 09-26-2012 End: 09-26-2012 Pacer Clinic [...] 01-05-2024 Covid-19 Vaccine ( season) Covid-19 Vaccine ( season) [facility] Start: 01-05-2024 Influenza vaccination [facility] Start: 05-06-2023 Advance Directive Discussion Advance Directive Discussion [facility] Start: 05-06-2023 Behavioral Health Screening Behavioral Health Screening [facility] Start: 01-04-2023 Covid-19 Vaccine ( season) Covid-19 Vaccine ( season) [facility] Start: 01-04-2023 Influenza vaccination INFLUENZA (Season Ended) [facility] Start: 05-06-2022 ADVANCE DIRECTIVE DISCUSSION ADVANCE DIRECTIVE DISCUSSION [facility] Start: 05-06-2022 DEPRESSION ASSESSMENT DEPRESSION ASSESSMENT [facility] Start: 01-04-2022 Influenza vaccination [facility] Start: 07-07-2021 COVID-19 VACCINE (4 - Booster for Pfizer series) COVID-19 VACCINE (4 - Booster for Pfizer series) [facility] Start: 05-06-2021 ADVANCE DIRECTIVE DISCUSSION ADVANCE DIRECTIVE DISCUSSION [facility] Start: 05-04-2021 COVID-19 VACCINE (4 - Booster for Pfizer series) COVID-19 VACCINE (4 - Booster for Pfizer series) [facility] Start: 07-10-2017 End: 07-10-2017 Appointment Appointment [facility] Work Phone: Start: 07-03-2017 End: 07-03-2017 Appointment Appointment [facility] Work Phone: Start: 05-08-2017 End: 05-08-2017 Appointment Appointment [facility] Work Phone: Start: 02-12-2017 End: 02-12-2017 Appointment Appointment [facility] Work Phone: Start: 02-12-2017 End: 02-12-2017 Follow Up Appt Other Follow Up Appt Other [facility] Work Phone: Start: 01-23-2017 End: 01-23-2017 Appointment [facility] Work Phone: Start: 01-23-2017 End: 02-01-2017 Follow Up Appt 3 months Follow Up Appt 3 months [facility] Work Phone: Start: 01-23-2017 End: 02-01-2017 Pacer Clinic [facility] Work Phone: Start: 01-23-2017 End: 01-23-2017 Follow Up Appt 3 months Follow Up Appt 3 months [facility] Work Phone: Start: 01-23-2017 End: 01-23-2017 Pacer Clinic Pacer Clinic [facility] Work Phone: Start: 01-02-2017 End: 01-02-2017 *CBC with Differential *CBC with Differential [facility] Work Phone: Start: 01-02-2017 End: 01-02-2017 Follow Up Appt 6 weeks Follow Up Appt 6 weeks [facility] Work Phone: Start: 01-02-2017 End: 01-02-2017 MMM MMM [facility] Work Phone: Start: 01-02-2017 End: 01-02-2017 Nuclear stress test -Lexiscan Nuclear stress test -Lexiscan [facility] Work Phone: Start: 01-02-2017 End: 01-02-2017 Thyroid stimulating hormone (TSH) *TSH [facility] Work Phone: Start: 01-02-2017 End: 01-02-2017 Thyroxine (T4) *T4 (Total) [facility] Work Phone: Start: 01-02-2017 End: 01-02-2017 Appointment Appointment [facility] Work Phone: Start: 01-02-2017 End: 01-02-2017 *CBC with Differential *CBC with Differential [facility] Work Phone: Start: 01-02-2017 End: 01-02-2017 Follow Up Appt 6 weeks Follow Up Appt 6 weeks [facility] Work Phone: Start: 01-02-2017 End: 01-02-2017 MMM MMM [facility] Work Phone: Start: 01-02-2017 End: 01-02-2017 Nuclear stress test -Lexiscan Nuclear stress test -Lexiscan [facility] Work Phone: Start: 01-02-2017 End: 01-02-2017 Thyroid stimulating hormone (TSH) *TSH [facility] Work Phone: Start: 01-02-2017 End: 01-02-2017 Thyroxine (T4) *T4 (Total) [facility] Work Phone: Start: 11-15-2016 End: 11-16-2016 *BMP *BMP [facility] Work Phone: Start: 11-15-2016 End: 11-16-2016 *BMP *BMP [facility] Work Phone: Start: 10-17-2016 End: 10-17-2016 Appointment Appointment [facility] Work Phone: Start: 10-17-2016 End: 12-25-2016 Follow Up Appt 3 months Follow Up Appt 3 months [facility] Work Phone: Start: 10-17-2016 End: 12-25-2016 Pacer Clinic Pac[facility] Clinic [facility] Work Phone: Start: 10-17-2016 End: 12-25-2016 Follow Up Appt 3 months Follow Up Appt 3 months [facility] Work Phone: Start: 10-17-2016 [...] 07-04-2016 End: 12-25-2016 Pacer Clinic Pacer Clinic [facility] Work Phone: Start: 07-04-2016 End: [...] 3 months Follow Up Appt 3 months [facility] Work Phone: Start: 03-19-2016 End: 07-04-2016 Pacer Clinic Pacer Clinic [facility] Work Phone: Start: 03-19-2016 End: 07-04-2016 Follow Up Appt 3 months Follow Up Appt 3 months [facility] Work Phone: Start: 03-19-2016 End: 07-04-2016 Pacer Clinic Pacer Clinic [facility] Work Phone: Start: 12-12-2015 End: 12-25-2016 Follow Up Appt 3 months Follow Up Appt 3 months [facility] Work Phone: Start: 12-12-2015 End: 12-25-2016 Pacer Clinic Pacer Clinic [facility] Work Phone: Start: 12-12-2015 End: 12-25-2016 Follow Up Appt 3 months Follow Up Appt 3 months [facility] Work Phone: Start: 12-12-2015 End: 12-25-2016 Pacer Clinic Pacer Clinic [facility] Work Phone: Start: 11-30-2015 End: 11-30-2015 Ecg routine ecg w/least 12 lds w/i&r EKG (In office) [facility] Work Phone: Start: 11-30-2015 End: 11-30-2015 Follow Up Appt 6 months Follow Up Appt 6 months [facility] Work Phone: Start: 11-30-2015 End: 11-30-2015 PFM PFM [facility] Work Phone: Start: 11-30-2015 End: 11-30-2015 Electrocardiogram, complete EKG (In office) [facility] Work Phone: Start: 11-30-2015 End: 11-30-2015 Follow Up Appt 6 months Follow Up Appt 6 months [facility] Work Phone: Start: 11-30-2015 End: 11-30-2015 PFM PFM [facility] Work Phone: Start: 10-21-2015 End: 12-25-2016 *Hepatic Function Panel *Hepatic Function Panel [facility] Work Phone: Start: 10-21-2015 End: 12-25-2016 Lipid panel [AGGREGATE] *Lipid Profile CC PCP [facility] Work Phone: Start: 10-21-2015 End: 12-25-2016 *Hepatic Function Panel *Hepatic Function Panel [facility] Work Phone: Start: 10-21-2015 End: 12-25-2016 Lipid panel [AGGREGATE] *Lipid Profile CC PCP [facility] Work Phone: Start: 09-12-2015 End: 11-23-2015 Follow Up Appt 3 months Follow Up Appt 3 months [facility] Work Phone: Start: 09-12-2015 End: 11-23-2015 Pacer Clinic Pacer Clinic [facility] Work Phone: Start: 09-12-2015 End: 11-23-2015 Follow Up Appt 3 months Follow Up Appt 3 months [facility] Work Phone: Start: 09-12-2015 End: 11-23-2015 Pacer Clinic Pacer Clinic [facility] Work Phone: Start: 06-13-2015 End: 11-23-2015 Follow Up Appt 3 months Follow Up Appt 3 months [facility] Work Phone: Start: 06-13-2015 End: 11-23-2015 Pacer Clinic Pacer Clinic [facility] Work Phone: Start: 06-13-2015 End: 11-23-2015 Follow Up Appt 3 months Follow Up Appt 3 months [facility] Work Phone: Start: 06-13-2015 End: 11-23-2015 Pacer Clinic [facility]er Clinic [facility] Work Phone: Start: 05-19-2015 End: 05-19-2015 Follow Up Appt 6 months Follow Up Appt 6 months [facility] Work Phone: Start: 05-19-2015 End: 05-19-2015 MMM MMM [facility] Work Phone: Start: 05-19-2015 End: 05-19-2015 Follow Up Appt 6 months Follow Up Appt 6 months [facility] Work Phone: Start: 05-19-2015 End: 05-19-2015 MMM MMM [facility] Work Phone: Start: 04-18-2015 End: 04-21-2015 *Hepatic Function Panel *Hepatic Function Panel [facility] Work Phone: Start: 04-18-2015 End: 04-21-2015 Lipid panel [AGGREGATE] *Lipid Profile CC PCP [facility] Work Phone: Start: 04-18-2015 End: 04-21-2015 *Hepatic Function Panel *Hepatic Function Panel [facility] Work Phone: Start: 04-18-2015 End: 04-21-2015 Lipid panel [AGGREGATE] *Lipid Profile CC PCP [facility] Work Phone: Start: 03-07-2015 End: 11-23-2015 Follow Up Appt 3 months Follow Up Appt 3 months [facility] Work Phone: Start: 03-07-2015 End: 11-23-2015 Pacer Clinic Pacer Clinic [facility] Work Phone: Start: 03-07-2015 End: 11-23-2015 Follow Up Appt 3 months Follow Up Appt 3 months [facility] Work Phone: Start: 03-07-2015 End: 11-23-2015 Pacer Clinic Pacer Clinic [facility] Work Phone: Start: 11-19-2014 End: 11-23-2015 Follow Up Appt 3 months Follow Up Appt 3 months [facility] Work Phone: Start: 11-19-2014 End: 11-23-2015 Pacer Clinic Pacer Clinic [facility] Work Phone: Start: 11-19-2014 End: 11-23-2015 Follow Up Appt 3 months Follow Up Appt 3 months [facility] Work Phone: Start: 11-19-2014 End: 11-23-[address] [facility] Work Phone: Start: 10-19-2014 End: 10-25-2014 CBC W Auto Differential panel - Blood *CBC without Diff [facility] Work Phone: Start: 10-19-2014 End: 10-19-2014 Ecg routine ecg w/least 12 lds w/i&r EKG (In office) [facility] Work Phone: Start: 10-19-2014 End: 10-19-2014 Follow Up Appt 6 months Follow Up Appt 6 months [facility] Work Phone: Start: 10-19-2014 End: 10-19-2014 Nuclear stress test -Lexiscan Nuclear stress test -Lexiscan [facility] Work Phone: Start: 10-19-2014 End: 10-19-2014 PFM PFM [facility] Work Phone: Start: 10-19-2014 End: 10-25-2014 Thyroid stimulating hormone (TSH) *TSH [facility] Work Phone: Start: 10-19-2014 End: 10-25-2014 Thyroxine (T4) *T4 (Total) [facility] Work Phone: Start: 10-19-2014 End: 10-25-2014 CBC W Auto Differential panel - Blood *CBC without Diff [facility] Work Phone: Start: 10-19-2014 End: 10-19-2014 Electrocardiogram, complete EKG (In office) [facility] Work Phone: Start: 10-19-2014 End: 10-19-2014 Follow Up Appt 6 months Follow Up Appt 6 months [facility] Work Phone: Start: 10-19-2014 End: 10-19-2014 Nuclear stress test -Lexiscan Nuclear stress test -Lexiscan [facility] Work Phone: Start: 10-19-2014 End: 10-19-2014 PFM PFM [facility] Work Phone: Start: 10-19-2014 End: 10-25-2014 Thyroid stimulating hormone (TSH) *TSH [facility] Work Phone: Start: 10-19-2014 End: 10-25-2014 Thyroxine (T4) *T4 (Total) [facility] Work Phone: Start: 08-16-2014 End: 10-05-2014 Follow Up Appt 3 months Follow Up Appt 3 months [facility] Work Phone: Start: 08-16-2014 End: 10-05-2014 Pacer Clinic Pacer Clinic [facility] Work Phone: Start: 08-16-2014 End: 10-05-2014 Follow Up Appt 3 months Follow Up Appt 3 months [facility] Work Phone: Start: 08-16-2014 End: 10-05-2014 Pacer Clinic Pacer Clinic [facility] Work Phone: Start: 05-17-2014 End: 10-05-2014 Follow Up Appt 3 months Follow Up Appt 3 months [facility] Work Phone: Start: 05-17-2014 End: 10-05-2014 Pacer Clinic Pacer Clinic [facility] Work Phone: Start: 05-17-2014 End: 10-05-2014 Follow Up Appt 3 months Follow Up Appt 3 months [facility] Work Phone: Start: 05-17-2014 End: 10-05-2014 Pacer Clinic Pacer Clinic [facility] Work Phone: Start: 04-19-2014 End: [...] 10-15-2014 *Hepatic Function Panel *Hepatic Function Panel [facility] Work Phone: Start: 04-19-2014 End: 04-19-2014 Follow Up Appt 6 months Follow Up Appt 6 months [facility] Work Phone: Start: 04-19-2014 End: 10-15-2014 Lipid panel [AGGREGATE] *Lipid Profile CC PCP [facility] Work Phone: Start: 04-19-2014 End: 04-19-2014 MMM MMM [facility] Work Phone: Start: 04-05-2014 End: [...] 3 months Follow Up Appt 3 months [facility] Work Phone: Start: 02-11-2014 End: 10-05-2014 Pacer Clinic Pacer Clinic [facility] Work Phone: Start: 02-11-2014 End: 10-05-2014 Follow Up Appt 3 months Follow Up Appt 3 months [facility] Work Phone: Start: 02-11-2014 End: 10-05-2014 Pacer Clinic Pacer Clinic [facility] Work Phone: Start: 11-11-2013 End: 10-05-2014 Follow Up Appt 3 months Follow Up Appt 3 months [facility] Work Phone: Start: 11-11-2013 End: 10-05-2014 Pacer Clinic Pacer Clinic [facility] Work Phone: Start: 11-11-2013 End: 10-05-2014 Follow Up Appt 3 months Follow Up Appt 3 months [facility] Work Phone: Start: 11-11-2013 [...] Lipid panel [AGGREGATE] *Lipid Profile CC PCP [facility] Work Phone: Start: 10-12-2013 End: 10-12-2013 PFM PFM [facility] Work Phone: Start: 10-12-2013 End: 10-12-2013 *Hepatic Function Panel *Hepatic Function Panel [facility] Work Phone: Start: 10-12-2013 End: 10-12-2013 Follow Up Appt 6 months Follow Up Appt 6 months [facility] Work Phone: Start: 10-12-2013 End: 10-12-2013 Lipid panel [AGGREGATE] *Lipid Profile CC PCP [facility] Work Phone: Start: 10-12-2013 End: 10-12-2013 PFM PFM [facility] Work Phone: Start: 10-04-2013 End: 10-13-2013 *Hepatic Function Panel *Hepatic Function Panel [facility] Work Phone: Start: 10-04-2013 End: 10-13-2013 Lipid panel [AGGREGATE] *Lipid Profile CC PCP [facility] Work Phone: Start: 10-04-2013 End: 10-13-2013 *Hepatic Function Panel *Hepatic Function Panel [facility] Work Phone: Start: 10-04-2013 End: 10-13-2013 Lipid panel [AGGREGATE] *Lipid Profile CC PCP [facility] Work Phone: Start: 08-05-2013 End: 10-01-2013 Follow Up Appt 2 months Follow Up Appt 2 months [facility] Work Phone: Start: 08-05-2013 End: 10-01-2013 Pacer Clinic Pacer Clinic [facility] Work Phone: Start: 08-05-2013 End: 10-01-2013 Follow Up Appt 2 months Follow Up Appt 2 months [facility] Work Phone: Start: 08-05-2013 End: 10-01-2013 Pacer Clinic Pacer Clinic [facility] Work Phone: Start: 05-04-2013 End: 10-01-2013 Follow Up Appt 3 months Follow Up Appt 3 months [facility] Work Phone: Start: 05-04-2013 End: 10-01-2013 Pacer Clinic Pacer Clinic [facility] Work Phone: Start: 05-04-2013 End: 10-01-2013 Follow Up Appt 3 months Follow Up Appt 3 months [facility] Work Phone: Start: 05-04-2013 End: 10-01-2013 Pacer Clinic Pacer Clinic [facility] Work Phone: Start: 04-21-2013 End: 10-05-2014 *UA - Urinalysis w/o Micro *UA - Urinalysis w/o Micro [facility] Work Phone: Start: 04-21-2013 End: 10-05-2014 *UA - Urinalysis w/o Micro *UA - Urinalysis w/o Micro [facility] Work Phone: Start: 04-10-2013 End: 10-05-2014 *BMP *BMP [facility] Work Phone: Start: 04-10-2013 End: 10-05-2014 *Hepatic Function Panel *Hepatic Function Panel [facility] Work Phone: Start: 04-10-2013 End: 10-05-2014 *UA - Urinalysis w/o Micro *UA - Urinalysis w/o Micro [facility] Work Phone: Start: 04-10-2013 End: 10-05-2014 CBC W Auto Differential panel - Blood *CBC without Diff [facility] Work Phone: Start: 04-10-2013 End: 10-05-2014 Chest x-ray X-Ray, Chest, PA & Lateral [facility] Work Phone: Start: 04-10-2013 End: 04-20-2013 Ecg routine ecg w/least 12 lds w/i&r EKG (In office) [facility] Work Phone: Start: 04-10-2013 End: 10-01-2013 Follow Up Appt 3 months Follow Up Appt 3 months [facility] Work Phone: Start: 04-10-2013 End: 04-10-2013 Follow Up Appt 6 months Follow Up Appt 6 months [employer] [facility] Work Phone: Start: 04-10-2013 End: 10-05-2014 INR Coag RelTime (PPP) *PT/INR [facility] [employer] Work Phone: Start: 04-10-2013 End: 10-05-2014 Lipid panel [AGGREGATE] *Lipid Profile CC PCP [facility] Work Phone: Start: 04-10-2013 End: 04-10-2013 MMM MMM [facility] Work Phone: Start: 04-10-2013 End: 04-10-2013 Pacemaker Generator Change Pacemaker Generator Change [facility] Work Phone: Start: 04-10-2013 End: 10-01-2013 Pacer Clinic Pacer Clinic [facility] Work Phone: Start: 04-10-2013 End: 10-05-2014 *BMP *BMP [facility] Work Phone: Start: 04-10-2013 End: 10-05-2014 *Hepatic Function Panel *Hepatic Function Panel [facility] Work Phone: Start: 04-10-2013 End: 10-05-2014 *UA - Urinalysis w/o Micro *UA - Urinalysis w/o Micro [facility] Work Phone: Start: 04-10-2013 End: 10-05-2014 CBC W Auto Differential panel - Blood *CBC without Diff [facility] Work Phone: Start: 04-10-2013 End: 10-05-2014 Chest x-ray X-Ray, Chest, PA & Lateral [facility] Work Phone: Start: 04-10-2013 End: 10-05-2014 Coagulation factor induced.INR assay in platelet poor plasma *PT/INR [facility] Work Phone: Start: 04-10-2013 End: 04-20-2013 Electrocardiogram, complete EKG (In office) [facility] Work Phone: Start: 04-10-2013 End: 10-01-2013 [...] Phone: Start: 04-10-2013 End: 04-10-2013 MMM MMM [facility] Work Phone: Start: 04-10-2013 End: 04-10-2013 Pacemaker Generator Change Pacemaker Generator Change [facility] Work Phone: Start: 04-10-2013 End: 10-01-2013 Pacer Clinic Pacer Clinic [facility] Work Phone: Start: 12-31-2012 End: 10-01-2013 Follow Up Appt 3 months Follow Up Appt 3 months [facility] Work Phone: Start: 12-31-2012 End: 10-01-2013 Pacer Clinic Pacer Clinic [facility] Work Phone: Start: 12-31-2012 End: 10-01-2013 Follow Up Appt 3 months Follow Up Appt 3 months [facility] Work Phone: Start: 12-31-2012 End: 10-01-2013 Pacer Clinic Pacer Clinic [facility] Work Phone: Start: 10-04-2012 End: 10-05-2014 *Hepatic Function Panel *Hepatic Function Panel [facility] Work Phone: Start: 10-04-2012 End: 10-05-2014 Lipid panel [AGGREGATE] *Lipid Profile [facility] Work Phone: Start: 10-04-2012 End: 10-05-2014 *Hepatic Function Panel *Hepatic Function Panel [facility] Work Phone: Start: 10-04-2012 [...] 6 months Follow Up Appt 6 months [facility] Work Phone: Start: 09-26-2012 End: 09-26-2012 Pacer Clinic Pacer Clinic [facility] Work Phone: Start: 09-26-2012 End: 09-26-2012 PFM PFM [facility] Work Phone: Start: 09-26-2012 End: 09-26-2012 Echocardiography Echocardiogram (limited) [facility] Work Phone: Start: 09-26-2012 End: 09-26-2012 Follow Up Appt 3 months Follow Up Appt 3 months [facility] Work Phone: Start: 09-26-2012 End: 09-26-2012 Follow Up Appt 6 months Follow Up Appt 6 months [facility] Work Phone: Start: 09-26-2012 End: 09-26-2012 Pacer Clinic Pacer Clinic [facility] Work Phone: Start: 09-26-2012 End: 09-26-2012 PFM PFM [facility] Work Phone: Start: 04-05-2012 End: 11-08-2011 *Hepatic Function Panel *Hepatic Function Panel [facility] Work Phone: Start: 04-05-2012 End: 11-08-2011 Lipid panel [AGGREGATE] *Lipid Profile [facility] Work Phone: Start: 04-05-2012 End: 11-08-2011 *Hepatic Function Panel *Hepatic Function Panel [facility] Work Phone: Start: 04-05-2012 End: 11-08-2011 Lipid panel [AGGREGATE] *Lipid Profile [facility] Work Phone: Start: 02-25-2012 End: 10-01-2013 Follow Up Appt 6 months Follow Up Appt 6 months [facility] Work Phone: Start: 02-25-2012 End: 02-25-2012 Nuclear stress test -adenosine Nuclear stress test -adenosine [facility] Work Phone: Start: 02-25-2012 End: 10-01-2013 Follow Up Appt 6 months Follow Up Appt 6 months [facility] Work Phone: Start: 02-25-2012 [...] End: 11-08-2011 Lipid panel [AGGREGATE] *Lipid Profile [facility] Work Phone: Start: 08-23-2011 End: 08-23-2011 Echocardiography Echocardiogram (complete) [facility] Work Phone: Start: 08-23-2011 End: 10-01-2013 Follow Up Appt 6 months Follow Up Appt 6 months [facility] Work Phone: Start: 08-23-2011 End: 08-23-2011 Echocardiography Echocardiogram (complete) [facility] Work Phone: Start: 08-23-2011 End: 10-01-2013 Follow Up Appt 6 months Follow Up Appt 6 months [facility] Work Phone: Start: 09-24-2008 PNEUMOCOCCAL: 65+ (1 - PCV) PNEUMOCOCCAL: 65+ (1 - PCV) [facility] Start: 09-24-2008 PNEUMOVAX AGE 65 AND OVER WITH 5YR LOOKBACK (#1) PNEUMOVAX AGE 65 AND OVER WITH 5YR LOOKBACK (#1) [facility] Start: 2003 RSV Vaccine (1 - 1-dose 60+ series) RSV Vaccine (1 - 1-dose 60+ series) [facility] Start: 09-24-1993 SHINGRIX VACCINE (1 of 2) SHINGRIX VACCINE (1 of 2) [facility] Start: 09-24-1988 DIABETES SCREEN DIABETES SCREEN [facility] Start: 09-24-1988 Diabetes Screening Diabetes Screening [facility] Start: 09-24-1962 Urine microalbumin profile [facility] Start: 09-24-1961 Anxiety Screening Anxiety Screening [facility] Start: 09-24-1961 Depression Screening Depression Screening [facility] Start: 09-24-1961 HEPATITIS C SCREENING HEPATITIS C SCREENING [facility] Start: 1955 Adult depression screening assessment DEPRESSION SCREENING [facility] Blood chemistry [facility] NM Heart Views W str ess and W radionuclide IV [facility] Patient Education HYPERLIPIDEMIA , HYPERTENSION [facility] Work Phone[facility] Immunizations Immunization Date Immunization Notes Care Provider Fa cility 05-11-2022 influenza, injectabl e, quadrivalent, preservative free Dr. Juan Carlos Joel MD Work Phone: [facility] 05-11-2022 influenza virus vaccine, unspecified formulation Willie Haywood MD Work Phone: [facility] 03-13-2022 Covid Pfizer Bivalen t Booster Dr. Juan Carlos Joel MD Work Phone: [facility] Payers Date Payer Category Payer Medicare [id number] 2024 Self-pay [id number] 2023 Medicare [id number] 2019 Medicare HUMANA MEDICARE HUMANA MEDICARE PPO [id number] 2019-Present [phone] [address] [place] [address] PPO [id number] 2019 Medicare HUMANA MEDICARE HUMANA MEDICARE PPO [id number] 2019-Present [phone] [place] [address] PPO [id number] 2015 Medicare [id number] Unknown [id number] [id number] Unknown [id number] 2.16.840.1.162462.3.579.2.462 Unknown [id number] 2.16.840.1.862786.3.579.2.462 Unknown [id number] 2.16.840.1.447414.3.579.2.462 Unknown [id number] 2.16.840.1.215991.3.579.2.462 Unknown [id number] 2.16.840.1.549216.3.579.2.462 Unknown [id number] 2.16.840.1.161026.3.579.2.462 Unknown [id number] 2.16.840.1.376631.3.579.2.462 Unknown [id number] 2.16.840.1.641409.3.579.2.462 Unknown [id number] 2.16.840.1.880991.3.579.2.462 Unknown [id number] 2.16.840.1.597415.3.579.2.462 Unknown [id number] 2.840.1.990388.3.579.2.462 Unknown [id number] 2.16840.1.271914.3.579.2.462 Unknown [id number] 2.840.1.622419.3.579.2.462 Unknown [id number] 2.840.1.828847.3.579.2.462 Unknown [id number] 2.840.1.242821.3.579.2.462 Unknown [id number] 2.840.1.212820.3.579.2.462 Unknown [id number] 2.840.1.112401.3.579.2.462 Unknown [id number] 2.840.1.563121.3.579.2.462 Unknown [id number] 2.840.1.798895.3.579.2.462 Unknown [id number] 2.840.1.746175.3.579.2.462 Unknown [id number] 2.840.1.255524.3.579.2.462 Unknown [id number] 2.840.1.239696.3.579.2.462 Unknown [id number] 2.840.1.557795.3.579.2.462 Unknown [id number] 2.840.1.638909.3.579.2.462 Unknown [id number] 2.840.1.458561.3.579.2.462 Unknown [id number] 2.840.1.860152.3.579.2.462 Unknown [id number] 2.840.1.466253.3.579.2.462 Unknown [id number] 2.16840.1.061291.3.579.2.462 Unknown [id number] 2.16.840.1.966761.3.579.2.462 Social History Date Type Detail Facility Start: 01-16-2022 End: 12-17-2024 Tobacco smoking status NHIS Never smoked tobacco [facility] Start: 09-20-2021 End: 09-19-2022 Alcohol intake Current non-drinker of alcohol (finding) [facility] Start: 1945 Sex Assigned At Not on file [facility] Start: 09-10-2021 End: 01-16-2022 Exposure to SARS-CoV-2 (event) Not sure [facility] Start: 11-24-2021 End: 08-15-2023 Tobacco smoking status NHIS Unknown if ever smoked [facility] Start: 1945 Sex Assigned At Male [facility] Start: 01-16-2022 Tobacco use and exposure Smokeless tobacco non-user [facility] Start: 09-19-2022 History of Social function [facility] Start: 09-19-2022 Tobacco use panel [facility] National Score (1-100), lower number is lower risk 54 [facility] Medical Equipment Procedure Code Equipment Code Equipment Original Text Equipment Identifier Dates Cardiac resynchr onization therapy implantable pacemaker [id number] [facility] Start: 12-31-2023 Clinical Notes 01-04-1995 to 04-30-2024 Telephone Encounter - Marisela Irvin LPN - 01/22/2024 9:31 AM EDTTelephone Encounter - Marisela Irvin LPN - 01/22/2024 9:31 AM EDTTelephone Encounter - Rosetta Valiente MA - 11/15/2023 10:10 AM EDT Note Date & Type Note Facility 04-30-2024 Note [facility] Medical Records Department [address] [place] [address] Discharge Summary 04/30/24 1331 MR#: [id number] Acct: [id number] Name: ADI LUND Rep #: [id number] : 1945 78 From: Maria Fernanda Wisdom MD PCP: Dr. Juan Carlos Joel MD Status:ADM [place] [facility] [id number] Providers Date of Admission: 04/26/24 Date of Discharge: 04/30/24 Primary Care Physician: Dr. Juan Carlos Joel MD Consultations 04/26/24 17:20 Consult: Religious Leader / Pulmonary Medicine Routine Consulting Provider: Intensivists/Pulmonary Med Reason for Consult: Sepsis, UTI EMERGENT Consult: No MD Notified: Yes Date Notified: 04/26/24 Time Notified: 17:04 Method of Notification: Text Reason For Visit: SEPSIS, UTI Diagnosis Discharge Diagnosis (1) Gram-negative bacteremia: Status: Acute Code(s): R78.81 - Bacteremia (2) Acute UTI: Status: Acute Code(s): N39.0 - Urinary tract infection, site not specified Plan DISCHARGE DIAGNOSES: #1. Acute Encephalopathy secondary to Acute sepsis (urinary tract infection, febrile, tachycardic, tachypneic, hypoxic, decreased responsiveness/encephalopathy, lactic acidosis) secondary to Acute Klebsiella pneumoniae Bacteremia 2/2 Cx secondary to Acute Klebsiella pneumoniae Complicated Urinary Tract Infection complicated by BPH with obstructive pathology #2. Acute hypoxia, potentially multifactorial secondary to #1 and noted mild bibasilar atelectasis on lower thorax on CT abdomen and pelvis, resolved #3. Acutely elevated creatinine/Acute renal insufficiency on Chronic Kidney Disease Stage II per GFR trending #4. Questionable rectal impaction w/ severe constipation #5. CAD status post remote CABG 1994 and PCI 2009 approximately #6. HFrEF, chronic #7. Hypertension #8. Hyperlipidemia #9. PSVT status post AICD/cardiac resynchronization therapy pacemaker #10. Chronic macrocytic anemia #11. Mild Thrombocytopenia, suspect reactive given #1 #12. Parkinson disease #13. Anxiety and depression #14. BPH with obstructive pathology #15. Severe protein calorie malnutrition #16. CODE status: Patient KATHIE is his who is present and living will is currently in place. DNR-CCA, no intubation. No central line and pressor usage. Medications at Discharge Home Medications aspirin 81 mg tablet,delayed release 81 mg PO DAILY@0800 [facility] 04/21/13 nitroglycerin 0.4 mg sublingual tablet 0.4 mg sublingual Q5M PRN Chest Pain #25 tabs 06/12/19 albuterol sulfate 90 mcg/actuation aerosol inhaler 2 puff inhalation Q6H PRN shortness of breath or wheezing #6.7 grams 01/27/20 carbidopa 25 mg-levodopa 100 mg tablet 2 tab PO 4X/DAY parkinsons 06/25/23 Handicap Placcard #1 ea 07/25/23 finasteride 5 mg tablet 5 mg PO DAILY prostate health 12/19/23 mirtazapine 30 mg tablet 30 mg PO DAILY mood 12/19/23 tamsulosin 0.4 mg capsule 0.4 mg PO DAILY prostate 12/19/23 spironolactone 25 mg tablet 12.5 mg (1/2 x 25 mg) PO DAILY 30 days #15 tabs 01/21/24 furosemide 20 mg tablet (Lasix) 20 mg PO SUTUTH 04/26/24 indapamide 1.25 mg tablet 1.25 mg PO MOWEFR 04/26/24 lorazepam 0.5 mg tablet (Ativan) 0.5 mg PO 4X/DAY 04/26/24 magnesium hydroxide 400 mg/5 mL oral suspension (Milk of Magnesia) 30 ml PO Q6H PRN constipation 04/26/24 sennosides 8.6 mg-docusate sodium 50 mg capsule (Senna Plus) 2 tab-cap PO BID 04/26/24 acetaminophen 325 mg tablet 650 mg (2 x 325 mg) PO Q4H PRN PRN Fever, pain 1-02/12 #0 tabs 04/30/24 ascorbic acid (vitamin C) 500 mg tablet 500 mg PO DAILY #0 tabs 04/30/24 atorvastatin 80 mg tablet 80 mg PO QHS #0 tabs 04/30/24 cefdinir 300 mg capsule 300 mg PO BID UTI, bacteremia 5 days #10 caps 04/30/24 melatonin 10 mg sublingual tablet 10 mg PO HS PRN insomnia #0 tabs 04/30/24 menthol 0.44 %-zinc oxide 20.6 % topical ointment (Calmoseptine) 1 applic topical 4X/DAY #0 grams 04/30/24 Hospital Course Operations None Procedures EKG Summary of Care Provided Minutes Spent on Discharge: 35 Hospital Course: The patient is an 78 y/o M w/ PMHx: Parkinson's disease, CAD/ischemic cardiomyopathy s/p CABG 1994 and PCI 2010, HTN, HLD, PSVT s/p AICD/cardiac resynchronization therapy pacemaker, HFrEF, BPH with obstructive pathology, Anxiety and Depression, Chronic anemia, CKD stage II per GFR trending who presented to the [facility] ED on 04/26/24 with history of hematuria with decreased responsiveness and worsening weakness prompting to bring patient into the ED for further evaluation. Patient is on hospice currently for Parkinson disease and significant underlying cardiac disease living at home with his spouse with hospice seeing him once weekly. Workup in the ED included T102.9, heart rate 109, BP 100/68, respiratory rate 24, initially 86% on room air improving to 99% on 2 L nasal cannula, CBC with WBC 6.4, hemoglobin 12.5, MCV 95.7, platelet 173 without marked shift with lymphopenia, unr (more content not included)... [facility] 01-22-2024 Telephone encounter Note [phone] full unable to leave message. [phone] wrong number (Gentleman stated that this was the [facility]) Marisela Irvin LPN Central Admissions Intake Nurse [facility] Work Phone: 01-22-2024 Miscellaneous Notes [phone] full unable to leave message. [phone] wrong number (Gentleman stated that this was the [facility]) Marisela Irvin LPN Central Admissions Intake Nurse documented in this encounter [facility] 01-21-2024 Note [facility] Medical Records Department [address] [place] [address] Discharge Summary 01/21/24 1429 MR#: [id number] Acct: [id number] Name: ADI LUND Rep #: [id number] : 1945 78 From: Nestor Leone DO PCP: Dr. Juan Carlos Joel MD Status:DIS IN Location: [facility] KLE490-0 Providers Date of Admission: 01/19/24 Date of Discharge: 01/21/24 Primary Care Physician: Dr. Juan Carlos Joel MD Reason For Visit: SYNCOCPE Diagnosis Discharge Diagnosis (1) Syncope: Status: Acute Code(s): R55 - Syncope and collapse (2) Acute kidney injury: Status: Acute Code(s): N17.9 - Acute kidney failure, unspecified (3) Parkinson's disease: Status: Acute Code(s): G20.A1 - Parkinson's disease without dyskinesia, without mention of fluctuations (4) Debility: Status: Acute Code(s): R53.81 - Other malaise Medications at Discharge Home Medications aspirin 81 mg tablet,delayed release 81 mg PO DAILY@0800 heart health 04/21/13 nitroglycerin 0.4 mg sublingual tablet 0.4 mg sublingual Q5M PRN Chest Pain #25 tabs 06/12/19 albuterol sulfate 90 mcg/actuation aerosol inhaler 2 puff inhalation Q6H PRN shortness of breath or wheezing #6.7 grams 01/27/20 ascorbic acid (vitamin C) 500 mg tablet 500 mg PO DAILY supplement 10/31/20 melatonin 10 mg tablet 10 mg PO HS PRN insomnia 10/23/21 cholecalciferol (vitamin D3) 250 mcg (10,000 unit) capsule 250 mcg PO DAILY supplement 05/28/22 carbidopa 25 mg-levodopa 100 mg tablet 2 tab PO .qid parkinsons 06/25/23 metoprolol succinate 50 mg tablet,extended release 24 hr 25 mg PO DAILY heart/ blood pressure 06/25/23 Handicap Placcard #1 ea 07/25/23 finasteride 5 mg tablet 5 mg PO DAILY prostate health 12/19/23 mirtazapine 30 mg tablet 30 mg PO DAILY mood 12/19/23 tamsulosin 0.4 mg capsule 0.4 mg PO DAILY prostate 12/19/23 atorvastatin 80 mg tablet 80 mg PO QHS cholesterol 01/19/24 furosemide 20 mg tablet (Lasix) 20 mg PO QODAY 30 days #15 tabs 01/21/24 ramipril 1.25 mg capsule 1.25 mg PO DAILY 30 days #30 caps 01/21/24 spironolactone 25 mg tablet 12.5 mg (1/2 x 25 mg) PO DAILY 30 days #15 tabs 01/21/24 Hospital Course Operations None Procedures EKG and - (Chest x-ray, ankle x-ray, knee x-ray) Summary of Care Provided Minutes Spent on Discharge: 35 Hospital Course: Patient is an 78-year-old male who presented to [facility] ED on 01/18/2024 after a syncopal episode at home. Hospital course as noted below. Patient discharged home with home health care in stable condition on 01/20. 1. Syncopal episode with dehydration, improved ??? 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 Home diuretics and blood pressure medications aside from Toprol held on admission and patient given 2 L of IV fluids with improvement in blood pressure and no further presyncopal symptoms. Blood pressure remained low normal through 01/19 without resumption of other home medications. Started ramipril 1.25 mg daily and spironolactone 12.5 mg daily on 01/20; patient had mild drop in blood pressure into the 90s systolic but otherwise tolerated these fine. Discharged on home Toprol, ramipril and spironolactone at reduced doses and Lasix 20 mg every other day. Recommended close outpatient follow-up with cardiology for further medication changes as needed. 2. CHRIS, improved ??? Creatinine 1.83 on admit, improved to 1.22 on hospital day 2. Baseline creatinine appears to be around 1.0. Presumed prerenal CHRIS from dehydration from overmedication as noted above. Good urine output noted. No need to monitor further BMPs. 3. Chronic systolic CHF, history of CAD s/p stent placement, history of pacemaker placement, hypertension, hyperlipidemia ??? Follows with [facility]. Last office visit was on 12/18. Most recent echo in 08/27 showed EF 30% with similar findings to prior echo from 2021. Home medication regimen on admit of Lasix 20 mg daily, Toprol 25 mg daily, ramipril 10 mg twice daily and spironolactone 25 mg daily. Suspect some degree of overmedication causing syncopal episode on admission as noted above. Suspect Parkinson's disease may be contributing to lower blood pressures at baseline and thus patient may need less medication for heart failure moving forward. Patient notably had pacemaker battery changed out on 12/30 without issue, and pacemaker check on 01/15 was unremarkable. Continued home aspirin and statin. New medication regimen on discharge of Toprol 25 mg daily, ramipril 1.25 mg daily, spironolactone 12.5 mg daily and Lasix 20 mg every other day. 4. Parkinson's disease with acute on chronic debility ??? PT/OT/case management followed. Follows with outpatient neurology. Diagnosed about 17 years ago. Unable to find neurology notes in our system but patient is on carbidopa???levodopa 4 t (more content not included)... [facility] 01-21-2024 Telephone encounter Note Spoke to Val at Dr. Joel's office, she will confirm if the Doctor will follow and call back. Marisela Irvin LPN Central Admissions Intake Nurse [facility] Work Phone: 01-21-2024 Miscellaneous Notes Spoke to Val at Dr. Joel's office, she will confirm if the Doctor will follow and call back. Marisela Irvin LPN Central Admissions Intake Nurse documented in this encounter [facility] 11-18-2023 Telephone encounter Note Please advise patient he is overdue for follow-up and please facilitate scheduling appointment with me or OLE. The following approved medication requests have been transmitted electronically. Requested Prescriptions Signed Prescriptions Disp Refills carbidopa-levodopa (SINEMET 25-100) 25-100 mg per tablet 540 tablet 0 Sig: Take 1.5 tablets by mouth four times daily. Authorizing Provider: WILLIE HAYWOOD MD [facility] 11-18-2023 Miscellaneous Notes Please advise patient he [...] Rosetta Valiente MA documented in this encounter [facility] 11-15-2023 Telephone encounter Note Patient has been [...] Please review and advise. Rosetta Valiente MA [facility] 09-16-2023 Telephone encounter Note Called and spoke with Patient's spouse. Relayed message below. An appointment was not scheduled at this time. Spouse states they will call back to schedule at another time. Edelmira Farr [facility] 09-16-2023 Miscellaneous Notes Called and spoke with Patient's spouse. Relayed message below. An appointment was not scheduled at this time. Spouse states they will call back to schedule at another time. Edelmira aFrr Please advise patient he is overdue for [...] Rosetta Valiente MA documented in this encounter [facility] 09-02-2023 Telephone encounter Note Please advise patient he is overdue for follow-up and please facilitate scheduling appointment with me or OLE (has seen Cherry). The following approved medication requests have been transmitted electronically. Requested Prescriptions Signed Prescriptions Disp Refills carbidopa-levodopa (SINEMET 25-100) 25-100 mg per tablet 540 tablet 0 Sig: Take 1.5 tablets by mouth four times daily. Authorizing Provider: WILLIE HAYWOOD MD [facility] 09-02-2023 Telephone encounter Note Patient has been [...] Please review and advise. Rosetta Valiente MA [facility] 08-28-2022 Miscellaneous Notes Attempted to return call [...] calls stating patient is sleeping all the time. His energy is low and can hardly walk. There has not been any recent illness or changes. Attempted to make appointment in tomorrow morning slot with but patient had a conflict and she asked if there might be anything to do for him now. Number to return call [phone] Okay to leave a message ? Last office visit 01/16/22 with Cherry No visit scheduled. Thank you calling [facility]. You will receive a return call within 48 hours ( or 2 business days if close to the weekend). If you feel that this is an urgent issue and needs immediate attention, it is recommended that you contact your primary care provider office or proceed to your nearest Urgent Care Center of Emergency Room ED for evaluation/treatment. documented in this encounter [facility] 01-22-2022 Miscellaneous Notes Request from patient requesting refill. RX prescribed by previous neurologist. Please E-Scribe to [facility] (Beatris). Last OV: 01/16/22 with SS Future OV: 07/16/22 with KA Requested Prescriptions Pending Prescriptions Disp Refills sertraline (ZOLOFT) 100 mg tablet 90 tablet 3 Sig: Take 1 tablet by mouth once daily. Jerica Mclaughlin documented in this encounter [facility] 01-16-2022 Instructions Cherry Billingsley APRN.CARLOS - 01/16/2022 4:03 PM EDT For your [...] potential for hallucinations. documented in this encounter [facility] 01-16-2022 History of Present illness Narrative CNR-MOVEMENT [...] to him later. Loses train of thought. [place] Cognitive Assessment (MoCA): 15 (01/16/2022 3:30 PM) [...] Objective Vital Signs: Ht 175.3 cm (5' 9) Wt 67.4 kg (148 lb 9.6 oz) SpO2 97% BMI 21.94 kg/m Orthostatic Vitals: Sitting: BP 161/77 Pulse 55 Standing: BP 165/80 Pulse 55 Weight: 67.4 kg (148 lb 9.6 oz) Height: 175.3 cm (5' 9) No LMP for male patient. Body mass [...] not have Parkinson's disease. I did a [place] today, and he scored a 15. Due [...] potential for hallucinations. Level of service : 29973 (40-54 min). Time spent 45 min on the day of service, which included preparing to see the patient, cmsv-lj-wqfw patient care, completing clinical documentation, obtaining and/or [...] call with any questions. Sincerely, Cherry Billingsley APRN.CNA PER DIEM documented in this encounter [facility] 09-20-2021 Instructions Willie Haywood MD - 09/20/2021 [...] or you can send a message through [employer]. You can also now schedule and select appointments through [employer]. Willie Haywood MD Constipation and Other Gastrointestinal [...] future constipation. Treatments fall into two categories: rymd-oib-ishlfjy and prescription therapies. Remember: consult with your [...] day and your own convenience and preference. Nhxx-rui-Wezpjsw Products Sqpm-ziq-hrzpeke treatments for constipation can be purchased at [...] It also comes as a capsule (Senna [place] Smooth Move ). ving with PD Constipation [...] easier to pass. These can be used long chain quiller tender but should not be used in [...] after other remedies have failed. Among the lima-qlq-dpxmxcl laxatives, they are most likely to cause [...] psyllium (Perdiem ). Common Side Effects of Uurk-dax-Nedtycm Products for Constipation Emollient (Stool Softeners) Skin [...] any side effects listed. Prescription Products When pznm-kkl-oxeslri remedies fail, your healthcare provider may recommend [...] Stimulant X Bisacodyl (Dulcolax ) Stimulant X [place] Oil Stimulant X Cellulose (Unifiber ) Bulk [...] (Senokot ) Stimulant X Adapted from: [facility] Website, accessed August 30, 2015, [email or web address] [email or web address] [id number] Special Precautions For your safety, consult your [...] Contributing authors: Percy Gonzalez, Ph.D., R.N., and Jose Katz.S.N., C.R.N.P. Constipation Tracker Day/Date Time Food(s) Eaten Activities Emotional Status Stool Description Feel free to photocopy this page and use it throughout the year to track your symptoms and share with your doctor. This is a patient education material provided by the Parkinson s Foundation. For more information and resources see https://www.parkinson.org/. [facility] is a Center of Excellence for the Parkinson s Foundation. documented in this encounter [facility] 09-20-2021 History of Present illness Narrative [facility] - NEW PATIENT EVALUATION Ted Hays MD No address on file I had the pleasure of evaluating Mr. Oskar to our clinic today. As you know he is a 75 year old right-handed male who is self referred for evaluation of PD since 2004. He is seen with his . Subjective HISTORY OF PRESENT ILLNESS: Initial HPI Started with tremor around 2004. Started on the right side. Little bit on the left now. Diagnosed around that time. Neurologist left [facility]. Would like walking to be better. Doesn't [...] Coronary atherosclerosis of unspecified type of vessel, [place] or graft, Essential hypertension, benign, Other [...] Pulse (!) 55 Ht 175.3 cm (5' 9) Wt 71.2 kg (157 lb) SpO2 98% [...] 2+ 2+ Achilles 1+ 1+ Coordination Right: Ckhihu-va-blei normal. Rapid alternating movement normal. Left: Zyiwwj-vz-vnbo normal. Rapid alternating movement normal. 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 chronic Essential hypertension chron ic Ischemic cardiomyopathy tobacco baler kodak Mixed hyperlipidemia chronic Paroxysmal supraventricular tachycardia chronic 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 [facility] Work Phone: [phone] 842-710909-01-1995 Evaluation note* Diagnosis Onset Date Resolution Status 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, chronic Essential hypertension chron ic Ischemic cardiomyopathy tobacco baler kodak Mixed hyperlipidemia chronic Paroxysmal supraventricular tachycardia chronic Presence of stent in coronary artery March, chronic S/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) chroni c Ischemic cardiomyopathy tobacco baler kodak Paroxysmal supraventricular tachycardia chronic S/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) chroni c Atherosclerotic heart diseas e of [place] coronary artery without angina pectoris chronic Essential hypertension chron ic Ischemic cardiomyopathy tobacco baler kodak Mixed hyperlipidemia chronic Paroxysmal supraventricular tachycardia chronic S/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) chroni c Ischemic cardiomyopathy tobacco baler kodak Left bundle branch block chr onic Paroxysmal supraventricular tachycardia chronic S/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) chroni c Atherosclerotic heart diseas e of [place] coronary artery without angina pectoris chronic Essential hypertension chron ic Ischemic cardiomyopathy tobacco baler kodak Mixed hyperlipidemia chronic Paroxysmal supraventricular tachycardia chronic S/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) chroni c [facility] Work Phone: Evaluation note* Diagnosis Parkinson disease (HCC)- Primary Paralysis agitans RBD (REM behavioral disorder) REM sleep behavior disorder Gait instability Abnormality of gait [facility] Diagnosis Onset Date Resolution Status Fatigue acute Chronic systolic heart failure chronic Ischemic cardiomyopathy tobacco baler kodak Left bundle branch block chr onic Paroxysmal supraventricular tachycardia chronic S/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) chroni c Chronic systolic heart failure chronic Ischemic cardiomyopathy tobacco baler kodak Left bundle branch block chr onic Paroxysmal supraventricular tachycardia chronic S/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) chroni c COVID-19 acute [facility] Work Phone: Evaluation note* Diagnosis Parkinson disease (HCC)- Primary Paralysis agitans [facility]* Diagnosis Onset Date Resolution Status Chronic systolic heart failure chronic Ischemic cardiomyopathy tobacco baler kodak Left bundle branch block chr onic Paroxysmal supraventricular tachycardia chronic S/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) [facility] c 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, 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 chronic Essential hypertension chron ic Ischemic cardiomyopathy tobacco baler kodak Mixed hyperlipidemia chronic Paroxysmal supraventricular tachycardia chronic Presence of stent in coronary artery March, chronic S/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) [facility] Work Phone: Evaluation note* Diagnosis Onset Date Resolution Status Chronic systolic heart failure chronic Ischemic cardiomyopathy tobacco baler kodak Left bundle branch block chr onic Paroxysmal supraventricular tachycardia chronic S/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) [facility] 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, chronic Essential hypertension chron ic Ischemic cardiomyopathy tobacco baler kodak Mixed hyperlipidemia chronic Paroxysmal supraventricular tachycardia chronic Presence of stent in coronary artery March, chronic S/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) [facility] Work Phone: Evaluation note* Diagnosis Parkinson disease (HCC) Paralysis agitans documented [facility] this encounter [facility] noteNo assessment information availableBlHenry Mayo [facility] Work Phone: Reason for referral (narrative)No reason for referral information availableGlendora [facility] Work Phone: Reason for Referral Specialty Diagnoses / Procedures Referred By Ayaz t Referred To Contact Diagnoses Parkinson disease (HCC) Procedures PROVIDER ORDERED FOLLOW UP OFFICE/OUTPATIENT [facility] 60-74 MINUTES Willie Haywood MD [address] [address] Referral ID Status Reason Start Date Expiration Date Visits Requested Visits Authorized [id number] Authorized PCP Requested Referral 12/21/2021 09/20/2022 1 1 Specialty Diagnoses / Procedures Referred By Contac t Referred To Contact [facility] Diagnoses Parkinson disease (HCC) Gait instability Procedures CONSULT TO PHYSICAL THERAPY PHYSICAL THERAPY EVALUATION HIGH COMPLEX 45 MINS Willie Haywood MD [address] [address] [facility] [address] [place] [address] Referral ID Status Reason Start Date Expiration Date Visits Requested Visits Authorized [id number] Pending Review Auto-Generat ed Referral 09/20/2021 09/20/2022 1 1 Specialty Diagnoses / Procedures Referred By Contac t Referred To Contact Diagnoses Parkinson disease (HCC) Procedures CONSULT TO [facility] Cherry Billingsley APRN.[facility] [address] [place] [address] [address] [place] [id number] Referral ID Status Reason Start Date Expiration Date Visits Requested Visits Authorized [id number] Authorized PCP Requested Referral 01/16/2022 04/16/2022 1 1 Specialty Diagnoses / Procedures Referred By Contac t Referred To Contact Diagnoses Parkinson disease (HCC) Procedures PROVIDER ORDERED FOLLOW UP OFFICE/OUTPATIENT [facility] MDM 60 MINUTES Willie Haywood MD [address] [address] Referral ID Status Reason Start Date Expiration Date Visits Requested Visits Authorized [id number] Authorized PCP Requested Referral 10/02/2023 09/01/2024 1 1 Referral ID Status Reason Start Date Expiration Date Visits Requested Visits Authorized [id number] Authorized PCP Requested Referral 12/19/2023 11/17/2024 1 1 Chief Complaint and Reason for Visit 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 [facility] @ 3:30 CONGESTION/COVID TEST [...] Aortocoronary bypass status Atherosclerotic heart disease of [place] coronary artery without angina pectoris Essential hypertension [...] automatic cardioverter/defibrillator (AICD) Atherosclerotic heart disease of [place] coronary artery without angina pectoris Essential hypertension [...] automatic cardioverter/defibrillator (AICD) Atherosclerotic heart disease of [place] coronary artery without angina pectoris Essential hypertension Ischemic cardiomyopathy Mixed hyperlipidemia Paroxysmal supraventricular tachycardia S/P implantation of automatic cardioverter/defibrillator (AICD) Ischemic cardiomyopathy Left bundle branch block Paroxysmal supraventricular tachycardia S/P implantation of automatic cardioverter/defibrillator (AICD) Atherosclerotic heart disease of [place] coronary artery without angina pectoris Essential hypertension [...] automatic cardioverter/defibrillator (AICD) Atherosclerotic heart disease of [place] coronary artery without angina pectoris Essential hypertension Ischemic cardiomyopathy Mixed hyperlipidemia Paroxysmal supraventricular tachycardia S/P implantation of automatic cardioverter/defibrillator (AICD) Ischemic cardiomyopathy Left bundle branch block Paroxysmal supraventricular tachycardia S/P implantation of automatic cardioverter/defibrillator (AICD) Atherosclerotic heart disease of [place] coronary artery without angina pectoris Essential hypertension [...] Monthly Exam November 26, 2024 12:0 0pm Chief Complaint Admit Date ADMISSION EXAM September 10, 2024 6:15pm Pacer Check Remote September 12, 2024 3:19p m BENZODIAZAPINE EVALUATION September 22, 2024 5:15pm ADMISSION/MONTHLY EXAM October 13, 2024 3 :45pm Monthly Exam November 26, 2024 12:0 0pm Pacer Check Remote December 16, 2024 1: 33pm Chief Complaint Admit Date ADMISSION EXAM September 10, 2024 6:15pm Pacer Check Remote September 12, 2024 3:19p m BENZODIAZAPINE EVALUATION September 22, 2024 5:15pm ADMISSION/MONTHLY EXAM October 13, 2024 3 :45pm Monthly Exam November 26, 2024 12:0 0pm MONTHLY EXAM December 08, 2024 5:1 8pm Pacer Check Remote December 16, 2024 1: 33pm Family History No Family History Records Found Relationship Condition Age at Onset Recorded Date/T davide Not Specified Cardiac disease Unknown mother Hypertension Unknown father Chronic obstructive pulmonary disease Unk nown Coronary artery disease Unknown Cerebrovascular accident (CVA) Unknown brother Coronary artery disease Unknown Diabetes mellitus Unknown Hypertension Unknown sister Hypertension Unknown son Hyperlipidemia Unknown Advance Directives No Advanced Directives Records Found Advance Directive Response Recorded Date/ Time Living Will No November 24, 2021 3:58pm Power of Recovery Unit Operator No November 24 3:58pm Advance Directive Response Recorded Date/ Time Living Will No November 24, 2021 2:58pm Power of Recovery Unit Operator No November 24 2:58pm Advance Directive Response [...] or prosecute any alcohol or drug abuse patient.[facility] the event this information is protected by the Federal Confidentiality of Alcohol and Drug Abuse Patient Records regulations: The Federal rules restrict any use of the information to criminally investigate or prosecute any alcohol or drug abuse patient.[facility] the event this information is protected by the Federal Confidentiality of Alcohol and Drug Abuse Patient Records regulations: The Federal rules restrict any use of the information to criminally investigate or prosecute any alcohol or drug abuse patient.[facility] the event this information is protected by the Federal Confidentiality of Alcohol and Drug Abuse Patient Records regulations: The Federal rules restrict any use of the information to criminally investigate or prosecute any alcohol or drug abuse patient.[facility] the event this information is protected by the Federal Confidentiality of Alcohol and Drug Abuse Patient Records regulations: The Federal rules restrict any use of the information to criminally investigate or prosecute any alcohol or drug abuse patient.[facility] the event this information is protected by the Federal Confidentiality of Alcohol and Drug Abuse Patient Records regulations: The Federal rules restrict any use of the information to criminally investigate or prosecute any alcohol or drug abuse patient.[facility] the event this information is protected by the Federal Confidentiality of Alcohol and Drug Abuse Patient Records regulations: The Federal rules restrict any use of the information to criminally investigate or prosecute any alcohol or drug abuse patient.[facility] CampusIn the event this information is protected by the Federal Confidentiality of Alcohol and Drug Abuse Patient Records regulations: The Federal rules restrict any use of the information to criminally investigate or prosecute any alcohol or drug abuse patient.[facility] Reason for Visit (unrecogniz ed section and content) Reason Comments New Patient Parkinson's Disease Reason Comments Parkinson's Disease Specialty Diagnoses / Procedures Referred By Ayaz jimenez Referred To Contact Diagnoses Parkinson disease (HCC) Procedures PROVIDER ORDERED FOLLOW UP OFFICE/OUTPATIENT [facility] 60-74 MINUTES Willie Haywood MD [address] [place] [id number] Referral ID Status Reason Start Date Expiration Date V isits Requested Visits Authorized [id number] Closed PCP Requested Referral 12/21/2021 09/20/2022 1 1 Reason Onset Date Comments Refill Request 01/22/2022 Reason Comments Symptom Management Reason Onset Date Comments Refill Request 09/02/2023 Reason Onset Date Comments Refill Request 11/15/2023 Reason Comments Home Care MD to follow Reason Comments Home Care Confirmation call Care Teams (unrecognized sec tion and content) Escort Blind Relationship Specialty Start Date End Date Ted Hays Naun PCP - General 08/21/00 Escort Blind Relationship Specialty Start Date End Date Ted Hays Naun PCP - General 08/21/00 Escort Blind Relationship Specialty Start Date End Date Ted [...] Perez MD Attending Provider, Referring Provider Active Escort Blind Relationship Specialty Start Date End Date Ted Hays Naun PCP - General 08/21/00 Cherry Billingsley, SUPERVISOR [employer].CNA PER DIEM [address] [place] [address] Specialty Database Security Administrator Neurology 02/21/22 Rina Irvin, RENATA.CNA PER DIEM [address] [place] [address] Specialty Database Security Administrator Neurology 05/21/22 Team Status: Inactive Member Role Status Dates Dr. Juan Carlos Joel MD Primary Care Provider, Referring P rovider Active Kwasi Lawler MEDICAL EDUCATION MANAGER, MEDICAL EDUCATION MANAGER-C Attending Provider Active Team Status: Inactive Member Role Status Dates Dr. Juan Carlos Joel MD Primary Care Provider Active Kwasi Lawler MEDICAL EDUCATION MANAGER, MEDICAL EDUCATION MANAGER-C Attending Provider, Referring Pro vider Active Team Status: Inactive Member Role Status Dates Dr. Juan Carlos Joel MD Primary Care Provider Active Dr. Daniel Kaplan MD Attending Provider Active Team Status: Inactive Member Role Status Dates Dr. Juan Carlos Joel MD Primary Care Provider, Referring P rovider Active Pamela Mackenzie MEDICAL EDUCATION MANAGER, MEDICAL EDUCATION MANAGER-C Attending Provider Active Team Status: Inactive Member Role Status Dates Dr. Juan Carlos Joel MD Primary Care Provider Active Pamela Mackenzie MEDICAL EDUCATION MANAGER, MEDICAL EDUCATION MANAGER-C Attending Provider, Referring P rovider Active Team Status: Inactive Member Role Status Dates Dr. Juan Carlos Joel MD Primary Care Provider, Attending P rovider Active Team Status: Active Member Role Status Dates Dr. Juan Carlos Joel MD Primary Care Provider Active Pamela Mackenzie MEDICAL EDUCATION MANAGER, MEDICAL EDUCATION MANAGER-C Attending Provider Active Team Status: Active Member Role Status Dates Dr. Juan Carlos Joel MD Primary Care Provider Active Dr. Daniel Kaplan MD Attending Provider Active Team Status: Active Member Role Status Dates Dr. Juan Carlos Joel MD Primary Care Provider Active Pamela Mackenzie MEDICAL EDUCATION MANAGER, MEDICAL EDUCATION MANAGER-C Referring Provider, Other Provi emi Active Dr. Daniel Kaplan MD Attending Provider Active Escort Blind Relationship Specialty Start Date End Date Ted Hays PCP - General 08/21/00 Cherry Billingsley, SUPERVISOR [employer].CNA PER [facility] [address] [place] [address] Specialty Database Security Administrator Neurology 02/21/22 Rina Irvin, SUPERVISOR [employer].CNA PER [facility] [address] [place] [address] Specialty Database Security Administrator Neurology 05/21/22 Willie Haywood MD [address] [address] Specialty Database Security Administrator Neurology 04/24/23 Escort Blind Relationship Specialty Start Date End Date Ted Hays PCP - General 08/21/00 Cherry Billingsley, SUPERVISOR [employer].CNA PER DI[facility] [address] [place] [address] Specialty Database Security Administrator Neurology 02/21/22 Rina Irvin SUPERVISOR [employer].CNA PER DI[facility] [address] [place] [address] Specialty Database Security Administrator Neurology 05/21/22 Willie Haywood MD [address] [id number] Specialty Database Security Administrator Neurology 04/24/23 Team Status: Inactive Member Role [...] 2024 End: September 10, 2024 Hallie Campos MEDICAL EDUCATION MANAGER, MEDICAL EDUCATION MANAGER-C Attending Provider Active Start: September 10, 2024 [...] 2024 End: September 22, 2024 Hallie Campos MEDICAL EDUCATION MANAGER, MEDICAL EDUCATION MANAGER-C Attending Provider Active Start: September 22, 2024 [...] 2024 End: September 10, 2024 Hallie Campos MEDICAL EDUCATION MANAGER, MEDICAL EDUCATION MANAGER-C Attending Provider Active Start: September 10, 2024 [...] 2024 End: September 22, 2024 Hallie Campos MEDICAL EDUCATION MANAGER, MEDICAL EDUCATION MANAGER-C Attending Provider Active Start: September 22, 2024 [...] 2024 End: November 26, 2024 Hallie Campos MEDICAL EDUCATION MANAGER, MEDICAL EDUCATION MANAGER-C Attending Provider Active Start: November 26, 2024 End: November 26, 2024 Team Status: Inactive Member Role/Relationship Status Dates Dr. Juan Carlos Joel MD Primary Care Provider Active Start: December 16, 2024 End: December 16, 2024 Dr. Daniel Kaplan MD Attending Provider Active S tart: December 16, 2024 End: December 16, 2024 Team Status: Active Member Role/Relationship Status Dates Dr. Juan Carlos Joel MD Primary Care Provider Active Start: December 18, 2024 Adams MONET MD Attending Provider Active Start: December 18, 2024 Team Status: Inactive Member Role/Relationship Status Dates Dr. Juan Carlos Joel MD Primary Care Provider Active Start: December 08, 2024 End: December 08, 2024 Dr. Adams Ivy MD Attending Provider Active Start: December 08, 2024 End: December 08, 2024 Team Status: Inactive Member Role/Relationship Status Dates Dr. Juan Carlos Joel MD Primary Care Provider Active Start: December 16, 2024 End: December 16, 2024 Dr. Daniel Kaplan MD Attending Provider Active S tart: December 16, 2024 End: December 16, 2024 Team Status: Active Member Role/Relationship Status Dates Dr. Juan Carlos Joel MD Primary Care Provider Active Start: December 18, 2024 Adams MONET MD Attending Provider Active Start: December 18, 2024 Goals (unrecognized section and content) Goals [...] section and content) DATE CREATED AUTHOR 01/23/2024 [facility] DATE CREATED AUTHOR AUTHOR'S ROBIZ ATION 01/01/2025 [facility] FOR RECORDS PERTAINING TO PATIENTS WHO [...] BE BASED ON THE PRIMARY CLINICAL RECORDS. [facility]. provides no warranty or guarantee of the accuracy or completeness of information in this document.
[2025-01-09 15:44] LABS: Hematocrit 41.3 % (40-54); Hemoglobin 13.7 g/dL (13.0-16.5); Immature Granulocytes Count 0.040 X10^3/uL (0.0-0.0); Mean Corp Hgb Conc 33.2 g/dL (32-36); Mean Corpuscular Volume 94.5 fL (80-94); Mean Platelet Vol. 10.0 fl (6.2-12.0); NRBC Flagged by Analyzer 0 % (0-5); Platelet Count 249 K/mm3 (150-450); RBC Distribution Width CV 14.0 % (11.6-14.6); RBC Distribution Width SD 49.1 fl (35.1-43.9); Red Blood Count 4.37 M/mm3 (4.6-6.2); White Blood Count 8.5 K/mm3 (4.4-11.0)
--- NOTE | 2025-01-09 16:00 | RAD_ITS ---
PROCEDURE: CHEST 1 VIEW (PORTABLE) 01/09/2025 REASON FOR EXAM: FALL TECHNIQUE: Frontal view of the chest. COMPARISON: 04/26/2024 FINDINGS: Hardware: Median sternotomy wires and mediastinal clips are present. Left-sided pacemaker. Heart: Heart size is moderately enlarged. Lungs: Diffuse pulmonary vascular congestion. Right lung base consolidation. Small right and trace left pleural effusions. No pneumothorax. Bones: Degenerative changes are identified within the thoracic spine. RAD/Chest 1 View (Portable) IMPRESSION: 1. Right lung base consolidation. Small right and trace left pleural effusions . 2. Cardiomegaly with diffuse pulmonary vascular congestion. Reading [facility]
--- NOTE | 2025-01-09 16:00 | RAD_ITS ---
PROCEDURE: PELVIS 1 OR 2 VIEWS 01/09/2025 REASON FOR EXAM: FALL TECHNIQUE: Procedure Code: RADPEL Modality: DX Procedure: PELVIS 1 OR 2 VIEWS COMPARISON: None FINDINGS: Osseous: Bones of the pelvis are partially obscured by overlying bowel gas and fecal material. Pelvic congruency is maintained. No acute displaced fracture of the visualized pelvis is seen. There is a right hip replacement which extends below the level of imaging. If there are symptoms related to either hip, consider dedicated joint views. Degenerative change of the visualized lower lumbar spine noted. Soft tissues: Slightly distended gas and stool-filled loops of bowel overlying the pelvis to be correlated for constipation. Surgical material is seen overlying the right acetabular region. Vascular calcifications noted. Soft tissue injury is not well assessed by this technique. RAD/Pelvis 1 or 2 Views IMPRESSION: No radiographic evidence of an acute osseous injury. - Findings discussed above in detail. Reading Location: [id number]
[2025-01-09 16:08] LABS: Anion Gap 14 (5-15); BUN 19 mg/dL (4-19); BUN/Creat Ratio 20.7 RATIO (10-20); Calcium,Total 9.1 mg/dL (7.6-11.0); Carbon Dioxide 24.2 mmol/L (21.0-32.0); Chloride 111 mmol/L (98-108); Estimated Creatinine Clearance 49.17 ml/min (50-250); Glucose 109 mg/dL (70-99); Potassium 3.2 mmol/L (3.3-5.1)
[2025-01-09] MEDS: Lidocaine 1% /Epi 1:100 (20ml) 20 ML Vial 10 ML INFILT (16:30)
--- NOTE | 2025-01-09 17:52 | PN.HOSP_ITS ---
Hospitalist Note 79-year-old male with a history of coronary artery disease with stenting, pacemaker, Parkinson's disease, ischemic cardiomyopathy, BPH, DNRCC on hospice care who presented to [facility] ED 01/09/2025 from [facility] via EMS after he was found on the floor with an injury to forehead. Patient sarika historian, does not know what happened, apparently not able to communicate much at baseline and can't ambulate so has frequent falls In the ED temp 96.9, heart rate of 78 with a blood pressure 139/89, respiratory rate 16 pulse ox 93% on lauren m air. CBC with white count 8.5 and hemoglobin 13.7, BMP with a sodium of 149, potassium 3.2, BUN of 19 and a creatinine of 0.9, glucose 109. X-ray of the pelvis with no acute fracture noted, chest x-ray right lung base coarse and query diffuse pulmonary congestion. CT brain no acute process. Cervical spine CT with no acute fracture. Hospitalist contacted to evaluate for admission for IV fluids given his dehydration. Evaluated patient with at bedside, patient very poor historian answered all questions, patient is comfort care/DNR CC on hospice. He was brought specifically because he hit his head and she does not note any other acute specific complaints. Does endorse that he has poor p.o. intake which is not new and sometimes will cough but this is not consistent and has not changed acutely. In the ED patient afebrile, no hypotension or significant hypertension, no tachycardia and patient saturating mid 90s on room air, white blood cell count within normal limits at 8.5 and labs otherwise do appear consistent with dehydration and pt appears clinically dry. Given goals of care, lack of any significant vital abnormalities or extreme electrolyte derangement it seems reasonable to give IV hydration and potassium in the ED and discharge [facility] back [facility] where they can further address concerns for p.o. intake/any other concerns not requiring acute hospitalization. Discussed with at bedside and she was agreeable. Discussed with ED physician.
[2025-01-09] MEDS: Potassium Chloride 10mEq/100mL 10 MEQ/100 ML IV.SOLN. 100 MEQ IV BOLUS ×4 (17:59→21:10)
[2025-01-09] MEDS: 0.9% Normal Saline (1000mL) 1,000 ML 250 ML IV ×2 (17:59→21:57)
[2025-01-09 18:02] VITALS: BP 153/95; PULSE 71; RESP 18; O2SAT 97
[2025-01-09 20:00] VITALS: BP 142/105; PULSE 70; RESP 24; O2SAT 96
--- NOTE | 2025-01-09 20:56 | ED.RN ---
Report called to Sandy
[2025-01-09 20:58] VITALS: BP 149/102; PULSE 70; RESP 22; TEMP 36.1; O2SAT 96
[2025-01-09 22:00] VITALS: BP 153/89; PULSE 70; RESP 16; O2SAT 100
[2025-01-10] VITALS: BP 143/97; PULSE 71; RESP 16; O2SAT 95
== END 2025-01-10 00:34 | disposition home or self-care (01) ==
PROVIDERS: Emergency Provider Emergency Medicine; PCP Family Medicine; Visit Provider Emergency Medicine
DX: S01.01XA Laceration without foreign body of scalp, initial encounter (principal); G20.A1 Parkinson's disease without dyskinesia, without mention of fluctuations; I11.0 Hypertensive heart disease with heart failure; I50.22 Chronic systolic (congestive) heart failure; I48.92 Unspecified atrial flutter; S01.81XA Laceration without foreign body of other part of head, initial encounter; W19.XXXA Unspecified fall, initial encounter; Y92.099 Unspecified place in other non-institutional residence as the place of occurrence of the external cause; E87.0 Hyperosmolality and hypernatremia; E87.6 Hypokalemia; I25.5 Ischemic cardiomyopathy; I34.1 Nonrheumatic mitral (valve) prolapse; E78.2 Mixed hyperlipidemia; I47.10 Supraventricular tachycardia, unspecified; I25.10 Atherosclerotic heart disease of native coronary artery without angina pectoris; N40.0 Benign prostatic hyperplasia without lower urinary tract symptoms; Z66 Do not resuscitate; Z95.1 Presence of aortocoronary bypass graft; Z79.82 Long term (current) use of aspirin; Z79.899 Other long term (current) drug therapy; Z95.810 Presence of automatic (implantable) cardiac defibrillator
CPT/HCPCS: 12013; 70450; 71045; 72125; 72170; 80048; 85025; 93005; 96361; 96365; 96366; 99285; A4216